=== PATIENT | female | born 1975 | race American Indian/Alaskan Native ===

== ENCOUNTER 2016-08-25 13:39 | Inpatient (IN) | payer MEDICARE, MEDICAID ==
[2016-08-25 13:48] VITALS: BMI 34.3
--- NOTE | 2016-08-25 14:21 | ED PDOC ---
Arrival/HPI - General Chief Complaint: Psychiatric Evaluation Time Seen by Provider: 08/25/16 13:45 Historian: Patient - History of Present Illness Narrative History of Present Illness (Text): 08/25/16 14:19 40 year old female presents to the emergency department with depression and suicidal ideation. She states "I just want to end it." Patient also reports auditory hallucinations. Patient states she stopped taking her medications. No other complaints at this time. Time/Duration: < week Symptom Onset: Gradual Symptom Course: Unchanged Modifying Factors (Text): None Associated Symptoms (Text): None Past Medical History - Provider Review Nursing Documentation Reviewed: Yes - Past History Past History: Non-Contributing - Infectious Disease Hx of Infectious Diseases: None - Tetanus Immunization Tetanus Immunization: Unknown - Cardiac Hx Cardiac Disorders: Yes Hx Hypertension: Yes - Pulmonary Hx Respiratory Disorders: No Hx Asthma: No - Neurological Hx Neurological Disorder: Yes Hx Seizures: Yes (age 14) - HEENT Hx HEENT Disorder: No - Renal Hx Renal Disorder: No - Endocrine/Metabolic Hx Endocrine Disorders: Yes Hx Diabetes Mellitus Type 2: Yes - Hematological/Oncological Hx Blood Disorders: Yes Hx Anemia: Yes - Integumentary Hx Dermatological Disorder: No - Musculoskeletal/Rheumatological Hx Musculoskeletal Disorders: No Hx Falls: No - Gastrointestinal Hx Gastrointestinal Disorders: No - Genitourinary/Gynecological Hx Genitourinary Disorders: No Hx Sexually Transmitted Diseases: No - Psychiatric Hx Psychophysiologic Disorder: No Hx Emotional Abuse: No Hx Physical Abuse: No Hx Sexual Abuse: No Hx Substance Use: No - Anesthesia Hx Anesthesia: No - Suicidal Assessment Feels Threatened In Home Enviroment: No Family/Social History - Physician Review Nursing Documentation Reviewed: Yes Family/Social History: Unknown Family HX Smoking Status: Never Smoked Hx Alcohol Use: No Hx Substance Use: No Hx Substance Use Treatment: No Allergies/Home Meds Allergies/Adverse Reactions: Allergies No Known Allergies Allergy (Verified 08/25/16 13:58) Review of Systems - Physician Review All systems were reviewed & negative as marked: Yes - Review of Systems Respiratory: absent: SOB Cardiovascular: absent: Chest Pain Gastrointestinal: absent: Abdominal Pain Psychiatric: Depression, Suicidal Ideation (no plan) Physical Exam Vital Signs Reviewed: Yes Vital Signs Temp Pulse Resp BP Pulse Ox 08/25/16 19:39 98.6 F 76 20 123/80 99 08/25/16 16:52 66 18 125/64 99 08/25/16 15:30 69 18 128/69 99 08/25/16 14:13 98.2 F 74 18 132/71 99 Temperature: Afebrile Blood Pressure: Normal Pulse: Regular Respiratory Rate: Normal Appearance: Positive for: Well-Appearing, Non-Toxic, Comfortable Pain Distress: None Mental Status: Positive for: other (Awake, alert) - Systems Exam Head: Present: Atraumatic, Normocephalic Pupils: Present: PERRL Extroacular Muscles: Present: EOMI Conjunctiva: Present: Normal Mouth: Present: Moist Mucous Membranes Neck: Present: Normal Range of Motion Respiratory/Chest: Present: Clear to Auscultation, Good Air Exchange. No: Respiratory Distress, Accessory Muscle Use Cardiovascular: Present: Regular Rate and Rhythm, Normal S1, S2. No: Murmurs Abdomen: Present: Normal Bowel Sounds. No: Tenderness, Distention, Peritoneal Signs Back: Present: Normal Inspection Upper Extremity: Present: Normal Inspection. No: Cyanosis, Edema Lower Extremity: Present: Normal Inspection. No: Edema Neurological: Present: GCS=15, CN II-XII Intact, Speech Normal Skin: Present: Warm, Dry, Normal Color. No: Rashes Psychiatric: Present: Alert, Normal Concentration Medical Decision Making ED Course and Treatment: Impression: 40 year old female presents to the emergency department with depression and suicidal ideation. Patient also reports auditory hallucinations. Patient states she stopped taking her medications. No other complaints at this time. Differential Diagnosis include but are not limited to: Plan: -- EKG, Chest X-ray -- PES evaluation -- Reassess and disposition Prior Visits: Notes and results from previous visits were reviewed. Patient last seen in ED on 06/18/16 for depression. Progress Notes: - Lab Interpretations Lab Results: 08/25/16 13:55 08/25/16 13:55 Lab Results 08/25/16 17:35: Urine Opiates Screen Negative, Urine Methadone Screen Negative, Ur Barbiturates Screen Negative, Ur Phencyclidine Scrn Negative, Ur Amphetamines Screen Negative, U Benzodiazepines Scrn Negative, U Oth Cocaine Metabols Negative, U Cannabinoids Screen Negative 08/25/16 13:55: WBC 10.2, RBC 4.36, Hgb 12.4, Hct 37.0, MCV 84.9, MCH 28.4, MCHC 33.5, RDW 16.9 H, Plt Count 376, MPV 9.2, Gran % 57.3, Lymph % (Auto) 33.7 , [place] % (Auto) 7.4 H, Eos % (Auto) 1.2 L, Baso % (Auto) 0.4, Gran # 5.85, Lymph # 3.4, [place] # 0.8 H, Eos # 0.1, Baso # 0.04, Sodium 138, Potassium 4.1, Chloride 100, Carbon Dioxide 22, Anion Gap 20, BUN 10, Creatinine 0.5, Est GFR ( Amer) > 60, Est GFR (Non-Af Amer) > 60, Random Glucose 199 H, Calcium 9.7, Total Bilirubin 0.5, AST 28, ALT 31, Alkaline Phosphatase 73, Total Protein 8.2, Albumin 4.2, Globulin 4.0, Albumin/Globulin Ratio 1.1, Urine Color Yellow, Urine Appearance Clear, Urine pH 6.0, Ur Specific [place] >= 1.030, Urine Protein Trace H, Urine Glucose (UA) Negative, Urine Ketones 40 H, Urine Blood Negative, Urine Nitrate Negative, Urine Bilirubin Negative, Urine Urobilinogen 0.2, Ur Leukocyte Esterase Trace H, Urine RBC 0 - 2, Urine WBC 2 - 5, Ur Epithelial Cells 3 - 4, Urine Bacteria Few, Urine HCG, Qual Negative, Salicylates < 1 L, Acetaminophen < 10.0 L, Alcohol, Quantitative < 10 - RAD Interpretation Radiology Orders: 08/25/16 14:19 CHEST PORTABLE [RAD] Stat - EKG Interpretation EKG Interpretation (Text): EKG shows sinus tachycardia at [address] changes, no interval changes. Interpreted by ED Physician: Yes Type: 12 lead EKG - Scribe Statement The provider has reviewed the documentation as recorded by the Sridevi Begum Provider Scribe Attestation: All medical record entries made by the Sridevi were at my direction and personally dictated by me. I have reviewed the chart and agree that the record accurately reflects my personal performance of the history, physical exam, medical decision making, and the department course for this patient. I have also personally directed, reviewed, and agree with the discharge instructions and disposition. Disposition/Present on Arrival - Present on Arrival Any Indicators Present on Arrival: No History of DVT/PE: No History of Uncontrolled Diabetes: No Urinary Catheter: No History of Decub. Ulcer: No History Surgical Site Infection Following: None - Disposition Have Diagnosis and Disposition been Completed?: Yes Diagnosis: Depression Disposition: HOSPITALIZED Disposition Time: 21:43 Condition: STABLE
[2016-08-25 14:25] LABS: ADD MANUAL DIFF? NO
[2016-08-25 14:31] LABS: BASO # 0.04 K/mm3 (0.0-2.0); BASO % 0.4 % (0.0-3.0); EOS # 0.1 (0.0-0.7); EOS % 1.2 % (1.5-5.0); GRAN # 5.85 (1.4-6.5); GRAN % 57.3 % (50.0-68.0); LYMPH # 3.4 (1.2-3.4); LYMPH % 33.7 % (22.0-35.0); MEAN CELL VOLUME 84.9 fL (80.0-105.0); MEAN CORPUSCULAR HEMOGLOBIN 28.4 pg (25.0-35.0); MEAN CORPUSCULAR HGB CONC 33.5 g/dl (31.0-37.0); MEAN PLATELET VOLUME 9.2 fl (7.0-11.0); MONO # 0.8 (0.1-0.6); MONO % 7.4 % (1.0-6.0); PLATELET COUNT 376 10^3/uL (120.0-450.0); RED CELL DISTRIBUTION WIDTH 16.9 % (11.5-14.5); URINE BILIRUBIN NEGATIVE (NEGATIVE); URINE BLOOD NEGATIVE (NEGATIVE); URINE GLUCOSE (UA) NEGATIVE (NEGATIVE); URINE KETONE 40 mg/dL (NEGATIVE); URINE LEUKOCYTE ESTERASE TRACE Leu/uL (NEGATIVE); URINE PROTEIN TRACE mg/dL (<30 mg/dL); URINE UROBILINOGEN 0.2 E.U./dL (<1 E.U./dL); WHITE BLOOD COUNT 10.2 10^3/ul (4.5-11.0)
[2016-08-25 14:34] LABS: URINE APPEARANCE CLEAR (CLEAR); URINE COLOR YELLOW (YELLOW)
[2016-08-25 14:40] LABS: ALB/GLOB RATIO 1.1 (1.1-1.8); ALKALINE PHOSPHATASE 73 U/L (38-133); ALT/SGPT 31 U/L (7-56); AST/SGOT 28 U/L (15-39); BILIRUBIN,TOTAL 0.5 mg/dL (0.2-1.3); BLOOD UREA NITROGEN 10 mg/dL (7-21); CALCIUM 9.7 mg/dL (8.4-10.5); CARBON DIOXIDE 22 mmol/L (21-33); CHLORIDE 100 mmol/L (98-107); GFR AFRICAN-AMERICAN > 60; GLUCOSE,RANDOM 199 mg/dL (70-110); SODIUM 138 mmol/L (132-148); TOTAL PROTEIN 8.2 g/dL (5.8-8.3)
[2016-08-25 14:41] LABS: POTASSIUM 4.1 mmol/L (3.6-5.0)
[2016-08-25 14:45] LABS: URINE RBC 0 - 2 /hpf (0-2)
[2016-08-25 14:46] LABS: URINE BACTERIA FEW (NEG)
--- NOTE | 2016-08-25 15:19 | CARD ---
APPROVED REPORT EKG Measurement Heart [id number] <Conclusion> Sinus tachycardia STTW changes c/w ischemia
--- NOTE | 2016-08-25 15:30 | RAD ---
HISTORY: pysch COMPARISON: 06/19/2016 FINDINGS: LUNGS: No active pulmonary disease. PLEURA: No significant pleural effusion identified, no pneumothorax apparent. CARDIOVASCULAR: Normal. OSSEOUS STRUCTURES: No significant abnormalities. VISUALIZED UPPER ABDOMEN: Normal. OTHER FINDINGS: None. IMPRESSION: No active disease.
[2016-08-26 09:26] LABS: CHOLESTEROL 253 mg/dL (130-200); GLUCOSE,FASTING 247 mg/dL (65-110)
--- NOTE | 2016-08-26 09:50 | CON ---
DATE: 08/26/2016 I know the patient very well from multiple visits to the psychiatric floor, and it was good to she he r. She smiled when she saw me. She is feeling comfortable being there. She comes in being a 40-year-old female with depression and suicidal thoughts like, "Just wanted to ." She also had auditory hallucinations, and she stopped taking her medications. That is probably why she is in this trouble right now. She is pleasant this morning. She is smilin vanessa. She is talking to me. She is happy to see me. She has a history of hypertension, diabetes, seizures, anemia. There is diabetes in the family. She never smoked, did drugs, or do alcohol. No known drug allergies. She is on Clozaril, chewable aspirin, Colace, Haldol, Zetia, Zoloft, Glucophage, and Cozaar, which vickey benjamin had stopped taking. She has no known drug allergies. REVIEW OF SYSTEMS: No changes in hearing or seeing, but she is having auditory hallucinations now. No sore throat. No headache or dizziness, or numbness. No chest pain or palpitations, no shortness of breath, coughing or wheezes. No abdominal pain, nausea, vomiting, constipation, diarrhea. No ext remity pains. No skin rashes. She has a 98.6 temp, 76 pulse, 20 respiratory rate, and 123/80 blood pressure, 99% O2 sat on room air . HEAD: Atraumatic, normocephalic. Extraocular muscles are intact. Pupils equally reactive to light. Throat is moist, no erythema. NECK: Supple, no JVD. HEART: Regular rate. Normal S1, S2. LUNGS: Clear to auscultation. No wheezing, no rhonchi, no rales. ABDOMEN: Soft, nontender, positive bowel sounds, no guarding, no rebound, no CVA tenderness. EXTREMITIES: Have no edema. She is walking well. NEUROLOGIC: Cranial nerves II-XII grossly intact. Speech is normal. PCS is 15. Her sticks out her tongue midline. She smiles, she frowns. She can close her eyes tight. She can follow my finger in an H pattern. She can put both arms over her head. She understands the colors red, yellow, and gre en. Neurologically she is fairly intact. She feels the tissue on both sides of her cheeks, the same sensation. SKIN: Warm and dry. Alert and comfortable at this time. Happy to be on the psychiatric floor. She feels more comfortabl e here. No palpable lymphadenopathy appreciated, and thyroid midline. She had blood tests. She had a urine; showed a valproic acid of 25 low, otherwise the drug screen wa s fine. Urine was clean, with a negative . She has a 138 sodium, potassium 4.1, BUN 10, creatinine 0.5. GFR is greater than 60. Sugar is 161, calcium is 9.7. Total bili is 0.5. AST is 28, ALT is 31, alk phos 73, total protein is 8.2, globuli n is 4.0. White count is 10.2, hemoglobin 12.4, hematocrit 37, platelets are 376. I will put her back on her aspirin, her Colace, her Cozaar, her Zetia, and metformin. Will follow ps ychiatric treatment and medication adjustment. Hopefully, she will do very well. I encouraged her t o participate in groups, eat well, and take the medication again. Will watch her blood sugars and he r blood pressure, and I will check the labs tomorrow. Thank you very much for allowing me to participate in her care. Jason Contreras DO cc: [id number] TT: 08/26/2016 09:49:51 Confirmation # [id number] Dictation # [id number] krish
--- NOTE | 2016-08-26 12:02 | PCM.PSYCH ---
Initial Psychiatric Evaluation - Initial Psychiatric Evaluation Type of Admission: Voluntary Legal Status: Capacity History of Present Illness and Precipitating Events: Patient is a 40 yo AA female, psychiatric history of Schizoaffective Disorder, no drug or alcohol issues, numerous admissions usually in context of noncompliance-most recently at , poor follow up with aftercare recommendations , followed by [facility] PACT who presented to our ER reporting symptoms of depression, SI, AH, similar to her multiple other presentations. I reviewed recent notes and met with patient at bedside as well as during treatment team meeting. Patient is alert and oriented to month, year, location and circumstances. She is superficially bright and cooperative. Appears very friendly during treatment team meeting. Indicates that she came to the ER for help with depression and hallucinations. Presently she denies having any hallucinations or suicidal thoughts. Patient indicates that she has been taking her medications however she cannot list her current medications. Nursing notes indicate that she has been in good control and generally pleasant on the unit. She is oddly related but she's not bizarre and does not appear to be responding to internal stimuli. Presently patient denies having any new discomfort or pain and and has been tolerating current medications Patient has been in fair control overnight. There have been no behavioral issues and she has been compliant with medications. Patient denies discomfort or pain at this time, impulse control is tenuously intact. PSYCHIATRIC HISTORY Patient reports having more that 20 prior psychiatric hospitalizations since her first admission at the age of 14 yo. Most recently she was discharged from [facility] 06/18/16-06/30/16. Discharged on a regimen of Clozaril 275 mg at the morning time in 300 mg at the nighttime (clozaril [facility] notified about [facility] 06/19/16), Zoloft 100 by mouth daily for MDD and anxiety, Haldol Decanoate 100 mg IM monthly last dose was 06/29/16 Denies any history of suicide attempts. She is linked to [facility] PACT services. Patricia is the contact at [phone] Aunt has schizophrenia SOCIAL HISTORY Patient resides by herself in an apartment. Patient has no children. No drugs, alcohol or tobacco. Mother Danuta Zarate is pt's mother and main support ( [phone]). Past Psychiatric History - Past Psychiatric History Pertinent Medical Hx (Current Medical&Sleep Prob, Allergies): Allergies Allergy/AdvReac Type Severity Reaction Status Date / Time No Known Allergies Allergy Verified 08/25/16 22:42 Aspirin [Aspirin Chewable] 81 mg PO DAILY #7 chew 07/01/16 Docusate [Colace] 100 mg PO DAILY #7 cap 07/01/16 Ezetimibe [Zetia] 10 mg PO DAILY #7 tab 07/01/16 Haloperidol Decanoate [Haldol Decanoate] 100 mg IM Q30D #1 amp 07/01/16 Losartan [Cozaar] 100 mg PO DAILY #7 tab 07/01/16 MetFORMIN [glucoPHAGE] 1,000 mg PO BID #14 tab 07/01/16 Sertraline [Zoloft] 150 mg PO DAILY #20 tab 07/01/16 cloZAPine [Clozaril] 300 mg PO HS #45 tab 07/01/16 Mental Status Examination - Affect Affect: Broad, Constricted, Flat - Motor Activity Motor Activity: Calm - Reliability in Providing Information Reliability in Providing Information: Fair, Poor, due to alteration in thoughts - Speech Speech: Disorganized - Mood Mood: Depressed - Formal Thought Process Formal Thought Process: Hallucinations - Hallucinations/Delusions Hallucinations: Auditory - Obsessions/Compulsions Obsessions: No Compulsions: No - Cognitive Functions Orientation: Person, Place, Situation Estimate of Intelligence: Average Judgement: Imparied, as evidence by: Lack of insight into illness Memory: Recent impaired, as evidence by: Inability to recall events of the day - Risk Risk: Diminished functioning - Strength & Assets Inventory Strength & Assets Inventory: Cooperative DSM 5 DX - DSM 5 DSM 5 Diagnosis: Schizoaffective Disorder - Recommended/Plan of Treatment Treatment Recommendations and Plan of Treatment: * group, milieu and supportive tx * [facility] ([phone][facility], Ralph indicated he will call back with patient's medication list. * clozaril started at 50 mg po bid, titrate to prior therapeutic dose * Zoloft 50 mg po daily, titrate to prior therapeutic dose * Awaiting medical consult * Vitals reviewed and noted below: Selected Entries 08/26/16 08:19 Temperature 97.8 F Pulse Rate 78 Respiratory 18 Rate Blood Pressure 122/77 RECENT FLOOR LABS NOTED BELOW 08/26/16 09:10 Triglycerides 322 H Cholesterol 253 H LDL Cholesterol Direct 178 H ER LABS AND STUDIES NOTED BELOW 08/25/16 17:35: Urine Opiates Screen Negative, Urine Methadone Screen Negative, Ur Barbiturates Screen Negative, Ur Phencyclidine Scrn Negative, Ur Amphetamines Screen Negative, U Benzodiazepines Scrn Negative, U Oth Cocaine Metabols Negative, U Cannabinoids Screen Negative 08/25/16 13:55: WBC 10.2, RBC 4.36, Hgb 12.4, Hct 37.0, MCV 84.9, MCH 28.4, MCHC 33.5, RDW 16.9 H, Plt Count 376, MPV 9.2, Gran % 57.3, Lymph % (Auto) 33.7 , [place] % (Auto) 7.4 H, Eos % (Auto) 1.2 L, Baso % (Auto) 0.4, Gran # 5.85, Lymph # 3.4, [place] # 0.8 H, Eos # 0.1, Baso # 0.04, Sodium 138, Potassium 4.1, Chloride 100, Carbon Dioxide 22, Anion Gap 20, BUN 10, Creatinine 0.5, Est GFR ( Amer) > 60, Est GFR (Non-Af Amer) > 60, Random Glucose 199 H, Calcium 9.7, Total Bilirubin 0.5, AST 28, ALT 31, Alkaline Phosphatase 73, Total Protein 8.2, Albumin 4.2, Globulin 4.0, Albumin/Globulin Ratio 1.1, Urine Color Yellow, Urine Appearance Clear, Urine pH 6.0, Ur Specific [place] >= 1.030, Urine Protein Trace H, Urine Glucose (UA) Negative, Urine Ketones 40 H, Urine Blood Negative, Urine Nitrate Negative, Urine Bilirubin Negative, Urine Urobilinogen 0.2, Ur Leukocyte Esterase Trace H, Urine RBC 0 - 2, Urine WBC 2 - 5, Ur Epithelial Cells 3 - 4, Urine Bacteria Few, Urine HCG, Qual Negative, Salicylates < 1 L, Acetaminophen < 10.0 L, Alcohol, Quantitative < 10 EKG Interpretation EKG shows sinus tachycardia at [address] changes, no interval changes.
[2016-08-26] MEDS: Divalproex 500 mg ER (ONCE DAILY formulation) PO SCH (21:21)
[2016-08-27 08:11] LABS: HEMATOCRIT 33.2 % (36.0-48.0); MEAN CELL VOLUME 83.8 fL (80.0-105.0); MEAN CORPUSCULAR HGB CONC 33.4 g/dl (31.0-37.0); MEAN PLATELET VOLUME 9.2 fl (7.0-11.0); RED CELL DISTRIBUTION WIDTH 16.7 % (11.5-14.5); WHITE BLOOD COUNT 9.2 10^3/ul (4.5-11.0)
[2016-08-27 08:29] LABS: ALB/GLOB RATIO 1.1 (1.1-1.8); ALKALINE PHOSPHATASE 70 U/L (38-133); ALT/SGPT 33 U/L (7-56); AST/SGOT 25 U/L (15-39); BILIRUBIN,TOTAL 0.3 mg/dL (0.2-1.3); BLOOD UREA NITROGEN 8 mg/dL (7-21); CARBON DIOXIDE 26 mmol/L (21-33); CHLORIDE 101 mmol/L (95-110); GFR AFRICAN-AMERICAN > 60; GLUCOSE,RANDOM 150 mg/dL (70-110); POTASSIUM 4.2 mmol/L (3.6-5.0); SODIUM 139 mmol/L (132-148); TOTAL PROTEIN 7.2 g/dL (5.8-8.3)
--- NOTE | 2016-08-27 08:58 | PCM.PYCHPN ---
Psychiatric Progress Note - Psychiatric Progress Note Patient seen today, length of contact: 25 min Problems Identified/Issues Discussed: I reviewed recent notes and met with patient at bedside. Patient remains alert and oriented x3. She is superficially bright and cooperative. Reports she is doing better and looks pleased about being hospitalized. Denies recurrence of hallucinations or suicidal thoughts. She doesn't appear to be responding to internal stimuli. Nursing notes indicate that patient has been in good control and generally pleasant on the unit. She remains oddly related but not bizarre. Presently patient denies having any new discomfort or pain and has been tolerating the medications that were restarted yesterday. There were no behavioral issues overnight Diagnostic Results: Schizoaffective Disorder Medication Change: No Medical Record Reviewed: Yes Mental Status Examination - Cognitive Function Orientation: Person, Place, Situation - Mood Mood: Depressed - Affect Affect: Broad, Constricted, Flat - Formal Thought Process Formal Thought Process: Hallucinations - Homicidal Ideation Homicidal Ideation: No Goal/Treatment Plan - Goal/Treatment Plan Need for Continued Stay: Remain at risks for inpatient hospitalization Progress Toward Problem(s) and Goals/Treatment Plan: * group, milieu and supportive tx * Spoke with Ralph ([phone]) with [facility] services on 08/25/16 who indicated that patient's next Haldol Dec 100 mg IM dose is September 21. Confirmed current medication doses of Clozaril 200 mg AM and Depakote ER 1000 mg HS. * Clozaril changed to 100 mg AM, will titrate to prior dose of 200 mg AM. pt is on monthly monitoring * Depakote ER 1000 mg HS, VPA level on 08/27/16=18 * Awaiting medical consult * Vitals reviewed and noted below: Selected Entries 08/26/16 08/26/16 08:19 16:16 Temperature 97.8 F Pulse Rate 78 96 H Respiratory 18 Rate Blood Pressure 122/77 138/95 H RECENT FLOOR LABS NOTED BELOW 08/27/16 08/27/16 07:18 07:30 WBC 9.2 RBC 3.96 Hgb 11.1 L Hct 33.2 L MCV 83.8 MCH 28.0 MCHC 33.4 RDW 16.7 H Plt Count 317 MPV 9.2 Sodium 139 Potassium 4.2 Chloride 101 Carbon Dioxide 26 Anion Gap 16 BUN 8 Creatinine 0.4 L Est GFR ( Amer) > 60 POC Glucose (mg/dL) 153 H Random Glucose 150 H Calcium 9.0 Total Bilirubin 0.3 AST 25 ALT 33 Alkaline Phosphatase 70 Total Protein 7.2 Albumin 3.9 Globulin 3.4 Albumin/Globulin Ratio 1.1 Valproic Acid 18 L 08/26/16 09:10 Triglycerides 322 H Cholesterol 253 H LDL Cholesterol Direct 178 H ER LABS AND STUDIES NOTED BELOW 08/25/16 17:35: Urine Opiates Screen Negative, Urine Methadone Screen Negative, Ur Barbiturates Screen Negative, Ur Phencyclidine Scrn Negative, Ur Amphetamines Screen Negative, U Benzodiazepines Scrn Negative, U Oth Cocaine Metabols Negative, U Cannabinoids Screen Negative 08/25/16 13:55: WBC 10.2, RBC 4.36, Hgb 12.4, Hct 37.0, MCV 84.9, MCH 28.4, MCHC 33.5, RDW 16.9 H, Plt Count 376, MPV 9.2, Gran % 57.3, Lymph % (Auto) 33.7 , [place] % (Auto) 7.4 H, Eos % (Auto) 1.2 L, Baso % (Auto) 0.4, Gran # 5.85, Lymph # 3.4, [place] # 0.8 H, Eos # 0.1, Baso # 0.04, Sodium 138, Potassium 4.1, Chloride 100, Carbon Dioxide 22, Anion Gap 20, BUN 10, Creatinine 0.5, Est GFR ( Amer) > 60, Est GFR (Non-Af Amer) > 60, Random Glucose 199 H, Calcium 9.7, Total Bilirubin 0.5, AST 28, ALT 31, Alkaline Phosphatase 73, Total Protein 8.2, Albumin 4.2, Globulin 4.0, Albumin/Globulin Ratio 1.1, Urine Color Yellow, Urine Appearance Clear, Urine pH 6.0, Ur Specific [place] >= 1.030, Urine Protein Trace H, Urine Glucose (UA) Negative, Urine Ketones 40 H, Urine Blood Negative, Urine Nitrate Negative, Urine Bilirubin Negative, Urine Urobilinogen 0.2, Ur Leukocyte Esterase Trace H, Urine RBC 0 - 2, Urine WBC 2 - 5, Ur Epithelial Cells 3 - 4, Urine Bacteria Few, Urine HCG, Qual Negative, Salicylates < 1 L, Acetaminophen < 10.0 L, Alcohol, Quantitative < 10 EKG Interpretation EKG shows sinus tachycardia at [address] changes, no interval changes. - Smoking Cessation Smoking Cessation Initiated: No
[2016-08-27] MEDS: Divalproex 500 mg ER (ONCE DAILY formulation) PO SCH (21:08)
--- NOTE | 2016-08-28 08:42 | PCM.PYCHPN ---
Psychiatric Progress Note - Psychiatric Progress Note Patient seen today, length of contact: 25 min Patient Chief Complaint: "better" Problems Identified/Issues Discussed: I reviewed recent notes and met with patient at bedside. Patient remains oriented x3. She is superficially bright and cooperative. Continues to report that she is doing better and nursing indicates that she looks comfortable on the unit. Denies recurrence of hallucinations or suicidal thoughts. She doesn't appear to be responding to internal stimuli but she is internally preoccupied Nursing notes indicate that patient has been in good control and generally pleasant on the unit. She remains oddly related. Presenting better during this hospitalization than prior admissions. Presently patient denies having any new discomfort or pain and has been tolerating the medications that were restarted yesterday. Agreeable to further increase of clozaril to titrate to prior effective dose of 200 mg AM. There were no behavioral issues over the weekend. Diagnostic Results: Schizoaffective Disorder Medication Change: Yes (Clozaril increased) Medical Record Reviewed: Yes (notes, reports, labs, vitals) Mental Status Examination - Cognitive Function Orientation: Person, Place, Situation - Mood Mood: Depressed - Affect Affect: Broad, Constricted, Flat - Formal Thought Process Formal Thought Process: Hallucinations - Homicidal Ideation Homicidal Ideation: No Goal/Treatment Plan - Goal/Treatment Plan Need for Continued Stay: Remain at risks for inpatient hospitalization Progress Toward Problem(s) and Goals/Treatment Plan: * group, milieu and supportive tx * Appreciate f/u by Dr. Contreras on 08/26/16~put patient back on her antihypertensive, diabetic medications and requested labs * Spoke with Ralph ([phone]) with [facility] PA[facility] services on 08/25/16 who indicated that patient's next Haldol Dec 100 mg IM dose is September 21. Confirmed current medication doses of Clozaril 200 mg AM and Depakote ER 1000 mg HS. * Clozaril increased to 120 mg AM, will titrate to prior dose of 200 mg AM. pt is on monthly monitoring * Depakote ER 1000 mg HS, VPA level on 08/27/16=18 * Vitals reviewed and noted below: Selected Entries 08/27/16 08/27/16 06:00 16:11 Temperature 97.9 F Pulse Rate 80 82 Respiratory 18 Rate Blood Pressure 117/81 126/89 RECENT FLOOR LABS NOTED BELOW 08/27/16 08/27/16 07:18 07:30 WBC 9.2 RBC 3.96 Hgb 11.1 L Hct 33.2 L MCV 83.8 MCH 28.0 MCHC 33.4 RDW 16.7 H Plt Count 317 MPV 9.2 Sodium 139 Potassium 4.2 Chloride 101 Carbon Dioxide 26 Anion Gap 16 BUN 8 Creatinine 0.4 L Est GFR ( Amer) > 60 POC Glucose (mg/dL) 153 H Random Glucose 150 H Calcium 9.0 Total Bilirubin 0.3 AST 25 ALT 33 Alkaline Phosphatase 70 Total Protein 7.2 Albumin 3.9 Globulin 3.4 Albumin/Globulin Ratio 1.1 Valproic Acid 18 L 08/26/16 09:10 Triglycerides 322 H Cholesterol 253 H LDL Cholesterol Direct 178 H ER LABS AND STUDIES NOTED BELOW 08/25/16 17:35: Urine Opiates Screen Negative, Urine Methadone Screen Negative, Ur Barbiturates Screen Negative, Ur Phencyclidine Scrn Negative, Ur Amphetamines Screen Negative, U Benzodiazepines Scrn Negative, U Oth Cocaine Metabols Negative, U Cannabinoids Screen Negative 08/25/16 13:55: WBC 10.2, RBC 4.36, Hgb 12.4, Hct 37.0, MCV 84.9, MCH 28.4, MCHC 33.5, RDW 16.9 H, Plt Count 376, MPV 9.2, Gran % 57.3, Lymph % (Auto) 33.7 , [place] % (Auto) 7.4 H, Eos % (Auto) 1.2 L, Baso % (Auto) 0.4, Gran # 5.85, Lymph # 3.4, [place] # 0.8 H, Eos # 0.1, Baso # 0.04, Sodium 138, Potassium 4.1, Chloride 100, Carbon Dioxide 22, Anion Gap 20, BUN 10, Creatinine 0.5, Est GFR ( Amer) > 60, Est GFR (Non-Af Amer) > 60, Random Glucose 199 H, Calcium 9.7, Total Bilirubin 0.5, AST 28, ALT 31, Alkaline Phosphatase 73, Total Protein 8.2, Albumin 4.2, Globulin 4.0, Albumin/Globulin Ratio 1.1, Urine Color Yellow, Urine Appearance Clear, Urine pH 6.0, Ur Specific [place] >= 1.030, Urine Protein Trace H, Urine Glucose (UA) Negative, Urine Ketones 40 H, Urine Blood Negative, Urine Nitrate Negative, Urine Bilirubin Negative, Urine Urobilinogen 0.2, Ur Leukocyte Esterase Trace H, Urine RBC 0 - 2, Urine WBC 2 - 5, Ur Epithelial Cells 3 - 4, Urine Bacteria Few, Urine HCG, Qual Negative, Salicylates < 1 L, Acetaminophen < 10.0 L, Alcohol, Quantitative < 10 EKG Interpretation EKG shows sinus tachycardia at [address] changes, no interval changes.
--- NOTE | 2016-08-28 11:54 | PN ---
DATE: 08/28/2016 The patient is a 40-year-old female, seen and examined in the psychiatric [facility], coming in for depress ion as well as suicidal thoughts. At this point, she states that she is feeling a little better, is still depressed about everything going on in the home situation. However, no nausea, no vomiting, no chest pain, no shortness of breath. PHYSICAL EXAMINATION: VITAL SIGNS: Blood pressure is 128/84, pulse rate 89, temperature is 97.9, O2 saturation is 98% on r oom air. HEENT: Normocephalic, atraumatic. [place] conjunctivae. CARDIOVASCULAR: Regular rate and rhythm. S1, S2 appreciated. LUNGS: Bilateral air entry is positive. No wheezes or rhonchi. ABDOMEN: Nondistended, nontender. Positive bowel sounds. EXTREMITIES: Peripheral pulses +2 with no pitting edema. LABORATORIES: Noted that were done on the . Everything was within normal limits at this point. ASSESSMENT: 1. Depression. 2. Suicidal ideation. 3. Hypertension. 4. Diabetes. 5. Seizure disorder in the past. PLAN: At this point, we will continue the aspirin as well as her losartan and Zetia and metformin an d we will continue the psychiatric medication that she is receiving. We will follow very closely. Ho Moody MD cc: [id number] TT: 08/28/2016 11:54:00 Confirmation # [id number] Dictation # [id number] en
[2016-08-28] MEDS: Divalproex 500 mg ER (ONCE DAILY formulation) PO SCH (22:05)
[2016-08-29 06:45] VITALS: O2SAT 98
--- NOTE | 2016-08-29 08:51 | PN ---
DATE: 08/29/2016 I saw her resting in bed on the psychiatric floor. She slept well. She had a good weekend. She is feeling better. She is not as depressed. She is eating well, participating, in good spirits this mo rning. PHYSICAL EXAMINATION: VITAL SIGNS: Temp 97.7, 75 pulse, 113/78 blood pressure, 16 respiratory rate, 98% O2 sat on room air . HEENT: Head is atraumatic, normocephalic. Throat is moist. NECK: Supple. HEART: Regular rate. LUNGS: Clear to auscultation. ABDOMEN: Soft. EXTREMITIES: No edema. She is currently on aspirin, Clozaril, Colace, Cozaar, Depakote, Glucophage and Zetia. LABORATORIES: Last were on the . She has a 9.2 white count, 11.1 hemoglobin, [address] blood sugar was 155. Sodium 139, potassium 4.2, BUN 8, creatinine 0.4, GFR is greater than 60. C alcium is 9. AST is 25, ALT is 33, alk phos is 70. She is being seen by psychiatry. Overall, I think she is doing quite well. She is here for depressi on, suicidal ideation, hypertension, diabetes, seizure disorder. Continue with aggressive treatment and care as per psychiatry and I do think she is improving with psychiatric care. We will follow. Jason Contreras DO cc: [id number] TT: 08/29/2016 08:50:49 Confirmation # [id number] Dictation # [id number] en
--- NOTE | 2016-08-29 10:38 | PCM.PYCHPN ---
Psychiatric Progress Note - Psychiatric Progress Note Patient seen today, length of contact: 25 min Patient Chief Complaint: "better" Problems Identified/Issues Discussed: I reviewed recent notes and met with patient at bedside. Patient remains oriented x3. She is superficially bright and cooperative. Continues to report that she is depressed but doing better. Patient looks comfortable on the unit. Denies recurrence of hallucinations or suicidal thoughts. She doesn't appear to be responding to internal stimuli but she is internally preoccupied and appears flat/oblivious around the unit. Nursing notes indicate that patient has been in good control and generally pleasant on the unit. She remains oddly related. Presenting a little better during this hospitalization than prior admissions. Presently patient denies having any new discomfort or pain and has been tolerating titration of medications that were restarted. Agreeable to further increase of clozaril to titrate to prior effective dose of 200 mg AM. There were no behavioral issues overnight. Diagnostic Results: Schizoaffective Disorder Medication Change: Yes (Clozaril increased) Medical Record Reviewed: Yes (notes, reports, labs, vitals) Mental Status Examination - Cognitive Function Orientation: Person, Place, Situation - Mood Mood: Depressed - Affect Affect: Broad, Constricted, Flat - Formal Thought Process Formal Thought Process: Hallucinations - Homicidal Ideation Homicidal Ideation: No Goal/Treatment Plan - Goal/Treatment Plan Need for Continued Stay: Remain at risks for inpatient hospitalization Progress Toward Problem(s) and Goals/Treatment Plan: * group, milieu and supportive tx * Appreciate f/u by Dr. Contreras on 08/26/16~put patient back on her antihypertensive, diabetic medications and requested labs * Appreciate f/u by Dr. Moody on 08/28/16~no new recommendations * Spoke with Ralph ([phone]) with [facility] PACT services on 08/25/16 who indicated that patient's next Haldol Dec 100 mg IM dose is September 21. Confirmed current medication doses of Clozaril 200 mg AM and Depakote ER 1000 mg HS. * Clozaril increased to 150 mg AM, will titrate to prior dose of 200 mg AM. pt is on monthly monitoring * Depakote ER 1000 mg HS, VPA level on 08/27/16=18 * Vitals reviewed and noted below: Selected Entries 08/28/16 08/28/16 06:00 16:00 Temperature 97.9 F Pulse Rate 89 90 Respiratory 20 Rate Blood Pressure 128/84 108/70 RECENT FLOOR LABS NOTED BELOW 08/27/16 08/27/16 07:18 07:30 WBC 9.2 RBC 3.96 Hgb 11.1 L Hct 33.2 L MCV 83.8 MCH 28.0 MCHC 33.4 RDW 16.7 H Plt Count 317 MPV 9.2 Sodium 139 Potassium 4.2 Chloride 101 Carbon Dioxide 26 Anion Gap 16 BUN 8 Creatinine 0.4 L Est GFR ( Amer) > 60 POC Glucose (mg/dL) 153 H Random Glucose 150 H Calcium 9.0 Total Bilirubin 0.3 AST 25 ALT 33 Alkaline Phosphatase 70 Total Protein 7.2 Albumin 3.9 Globulin 3.4 Albumin/Globulin Ratio 1.1 Valproic Acid 18 L 08/26/16 09:10 Triglycerides 322 H Cholesterol 253 H LDL Cholesterol Direct 178 H ER LABS AND STUDIES NOTED BELOW 08/25/16 17:35: Urine Opiates Screen Negative, Urine Methadone Screen Negative, Ur Barbiturates Screen Negative, Ur Phencyclidine Scrn Negative, Ur Amphetamines Screen Negative, U Benzodiazepines Scrn Negative, U Oth Cocaine Metabols Negative, U Cannabinoids Screen Negative 08/25/16 13:55: WBC 10.2, RBC 4.36, Hgb 12.4, Hct 37.0, MCV 84.9, MCH 28.4, MCHC 33.5, RDW 16.9 H, Plt Count 376, MPV 9.2, Gran % 57.3, Lymph % (Auto) 33.7 , [place] % (Auto) 7.4 H, Eos % (Auto) 1.2 L, Baso % (Auto) 0.4, Gran # 5.85, Lymph # 3.4, [place] # 0.8 H, Eos # 0.1, Baso # 0.04, Sodium 138, Potassium 4.1, Chloride 100, Carbon Dioxide 22, Anion Gap 20, BUN 10, Creatinine 0.5, Est GFR ( Amer) > 60, Est GFR (Non-Af Amer) > 60, Random Glucose 199 H, Calcium 9.7, Total Bilirubin 0.5, AST 28, ALT 31, Alkaline Phosphatase 73, Total Protein 8.2, Albumin 4.2, Globulin 4.0, Albumin/Globulin Ratio 1.1, Urine Color Yellow, Urine Appearance Clear, Urine pH 6.0, Ur Specific [place] >= 1.030, Urine Protein Trace H, Urine Glucose (UA) Negative, Urine Ketones 40 H, Urine Blood Negative, Urine Nitrate Negative, Urine Bilirubin Negative, Urine Urobilinogen 0.2, Ur Leukocyte Esterase Trace H, Urine RBC 0 - 2, Urine WBC 2 - 5, Ur Epithelial Cells 3 - 4, Urine Bacteria Few, Urine HCG, Qual Negative, Salicylates < 1 L, Acetaminophen < 10.0 L, Alcohol, Quantitative < 10 EKG Interpretation EKG shows sinus tachycardia at [address] changes, no interval changes.
[2016-08-29] MEDS: Divalproex 500 mg ER (ONCE DAILY formulation) PO SCH (21:45)
--- NOTE | 2016-08-30 08:50 | PN ---
DATE: 08/30/2016 I saw the patient resting in bed in the psychiatric unit. She slept very well. She is comfortable; no acute distress or complaints. She is improving mentally. She said she is going to groups, and she is eating well. VITAL SIGNS: Are 98.4 temp, 75 pulse, 120/87 blood pressure, 20 respiratory rate, 98% O2 sat on room air. HEAD: Atraumatic, normocephalic. THROAT: Moist. NECK: Supple. HEART: Regular rate. LUNGS: Clear to auscultation. ABDOMEN: Soft, obese, nontender. EXTREMITIES: No edema. She is currently on aspirin, Clozaril, Colace, Cozaar, Depakote, Glucophage, and Zetia. She has a 9.2 white count, 11.1, hemoglobin and 317 platelets. Last blood sugar was 147. Overall, I think she has improved. She has depression, schizophrenia, bipolar, diabetes, hypertension. Continue with aggressive treatment as per psychiatry, and I encouraged her to participate in groups, take her medications, and she is eating well. Jason Contreras DO cc: [id number] TT: 08/30/2016 08:49:23 Confirmation # [id number] Dictation # [id number] jn MTDD
--- NOTE | 2016-08-30 10:08 | PCM.PYCHPN ---
Psychiatric Progress Note - Psychiatric Progress Note Patient seen today, length of contact: 25 min Patient Chief Complaint: "better" Problems Identified/Issues Discussed: I reviewed recent notes and met with patient at bedside. Patient remains oriented x3, superficially bright and cooperative. Consistently indicates that she is doing better and patient looks comfortable on the unit. She denies recurrence of hallucinations or suicidal thoughts. Nursing has noted patient making odd and grandiose statements around the unit. Patient told nursing that she was listening to her "spirit guide" and planned to go to nursing school. She doesn't appear to be actively responding to internal stimuli and she is less internally preoccupied. She is not overtly bizarre. Has been eating and sleeping well. Nursing notes also indicate that patient has been in good control and generally pleasant on the unit. She remains oddly related. Presently patient denies having any new discomfort or pain and has been tolerating titration of medications that were restarted. Agreeable to further increase of clozaril to titrate to prior effective dose of 200 mg AM. There were no behavioral issues overnight. Diagnostic Results: Schizoaffective Disorder Medication Change: Yes (Clozaril increased) Medical Record Reviewed: Yes (notes, reports, labs, vitals) Mental Status Examination - Cognitive Function Orientation: Person, Place, Situation - Mood Mood: Depressed - Affect Affect: Broad, Constricted, Flat - Formal Thought Process Formal Thought Process: Hallucinations - Homicidal Ideation Homicidal Ideation: No Goal/Treatment Plan - Goal/Treatment Plan Need for Continued Stay: Remain at risks for inpatient hospitalization Progress Toward Problem(s) and Goals/Treatment Plan: * group, milieu and supportive tx * Appreciate f/u by Dr. Contreras on 08/26/16 & 08/29/16~put patient back on her antihypertensive, diabetic medications and requested labs * Appreciate f/u by Dr. Moody on 08/28/16~no new recommendations * Spoke with Ralph ([phone]) with [facility] PACT services on 08/25/16 who indicated that patient's next Haldol Dec 100 mg IM dose is September 21. Confirmed current medication doses of Clozaril 200 mg AM and Depakote ER 1000 mg HS. * Clozaril increased to 175 mg AM, will titrate to prior dose of 200 mg AM. pt is on monthly monitoring. ~Patient's ANC results were provided with the updated 08/25/16 ANC value. Enrollment ID: [id number] * Depakote ER 1000 mg HS, ~VPA level on 08/27/16=18, check another VPA on 08/31/16 * Vitals reviewed and noted below: 08/29/16 08/29/16 06:44 16:30 Temperature 97.7 F Pulse Rate 75 92 H Respiratory 16 Rate Blood Pressure 113/78 129/84 RECENT FLOOR LABS NOTED BELOW 08/27/16 08/27/16 07:18 07:30 WBC 9.2 RBC 3.96 Hgb 11.1 L Hct 33.2 L MCV 83.8 MCH 28.0 MCHC 33.4 RDW 16.7 H Plt Count 317 MPV 9.2 Sodium 139 Potassium 4.2 Chloride 101 Carbon Dioxide 26 Anion Gap 16 BUN 8 Creatinine 0.4 L Est GFR ( Amer) > 60 POC Glucose (mg/dL) 153 H Random Glucose 150 H Calcium 9.0 Total Bilirubin 0.3 AST 25 ALT 33 Alkaline Phosphatase 70 Total Protein 7.2 Albumin 3.9 Globulin 3.4 Albumin/Globulin Ratio 1.1 Valproic Acid 18 L 08/26/16 09:10 Triglycerides 322 H Cholesterol 253 H LDL Cholesterol Direct 178 H ER LABS AND STUDIES NOTED BELOW 08/25/16 17:35: Urine Opiates Screen Negative, Urine Methadone Screen Negative, Ur Barbiturates Screen Negative, Ur Phencyclidine Scrn Negative, Ur Amphetamines Screen Negative, U Benzodiazepines Scrn Negative, U Oth Cocaine Metabols Negative, U Cannabinoids Screen Negative 08/25/16 13:55: WBC 10.2, RBC 4.36, Hgb 12.4, Hct 37.0, MCV 84.9, MCH 28.4, MCHC 33.5, RDW 16.9 H, Plt Count 376, MPV 9.2, Gran % 57.3, Lymph % (Auto) 33.7 , [place] % (Auto) 7.4 H, Eos % (Auto) 1.2 L, Baso % (Auto) 0.4, Gran # 5.85, Lymph # 3.4, [place] # 0.8 H, Eos # 0.1, Baso # 0.04, Sodium 138, Potassium 4.1, Chloride 100, Carbon Dioxide 22, Anion Gap 20, BUN 10, Creatinine 0.5, Est GFR ( Amer) > 60, Est GFR (Non-Af Amer) > 60, Random Glucose 199 H, Calcium 9.7, Total Bilirubin 0.5, AST 28, ALT 31, Alkaline Phosphatase 73, Total Protein 8.2, Albumin 4.2, Globulin 4.0, Albumin/Globulin Ratio 1.1, Urine Color Yellow, Urine Appearance Clear, Urine pH 6.0, Ur Specific [place] >= 1.030, Urine Protein Trace H, Urine Glucose (UA) Negative, Urine Ketones 40 H, Urine Blood Negative, Urine Nitrate Negative, Urine Bilirubin Negative, Urine Urobilinogen 0.2, Ur Leukocyte Esterase Trace H, Urine RBC 0 - 2, Urine WBC 2 - 5, Ur Epithelial Cells 3 - 4, Urine Bacteria Few, Urine HCG, Qual Negative, Salicylates < 1 L, Acetaminophen < 10.0 L, Alcohol, Quantitative < 10 EKG Interpretation EKG shows sinus tachycardia at [address] changes, no interval changes. - Smoking Cessation Smoking Cessation Initiated: No
[2016-08-30] MEDS: Divalproex 500 mg ER (ONCE DAILY formulation) PO SCH (21:22)
--- NOTE | 2016-08-31 08:40 | PN ---
DATE: 08/31/2016 I saw her resting in bed this morning. She slept well. She is smiling. She is comfortable. She te lls me she is improving and participating in groups. She is on aspirin, Clozaril, Colace, Cozaar, Depakote, Glucophage and Zetia. PHYSICAL EXAMINATION: VITAL SIGNS: Temp 98.4, 75 pulse, 128/87 blood pressure, 118/76 blood pressure, 20 respiratory rate, 98% O2 sat on room air. HEENT: Head is atraumatic, normocephalic. Throat is moist. NECK: Supple. HEART: Regular rate. LUNGS: Clear to auscultation. ABDOMEN: Soft, obese. EXTREMITIES: No edema. She currently has a 9.2 white count, 11.1 hemoglobin, 317 platelets. Last blood sugar was 153. She is definitely improving with psychiatric care and medication adjustments. She is here for depres erick, schizophrenia, bipolar, diabetes and hypertension. Continue with psychiatric care and changing medications. She is improving and I encouraged her to participate, eat well. Jason Contreras DO cc: [id number] TT: 08/31/2016 08:40:33 Confirmation # [id number] Dictation # [id number] en
--- NOTE | 2016-08-31 10:03 | PCM.PYCHPN ---
Psychiatric Progress Note - Psychiatric Progress Note Patient seen today, length of contact: 25 min Patient Chief Complaint: "better" Problems Identified/Issues Discussed: I reviewed recent notes and met with patient at bedside. Patient remains oriented x3, superficially bright and cooperative. Consistently indicates that she is doing better. She denies recurrence of hallucinations or suicidal thoughts. Nursing has noted patient singing and looking happy on the unit. Patient also made odd and grandiose statements the day prior. Apparently patient told nursing that she was listening to her "spirit guide" and planned to go to nursing school. Patient doesn't appear to be actively responding to internal stimuli and she is less internally preoccupied. She is not overtly bizarre. Has been eating and sleeping well. Nursing notes also indicates that patient has been in good control and generally pleasant on the unit. She is maybe less a little less oddly related as the week progresses. Presently patient denies having any new discomfort or pain and has been tolerating titration of medications that were restarted. Agreeable to further increase of clozaril to titrate to prior effective dose of 200 mg AM today. There were no behavioral issues overnight. Diagnostic Results: Schizoaffective Disorder Medication Change: Yes (Clozaril increased) Medical Record Reviewed: Yes (notes, reports, labs, vitals) Mental Status Examination - Cognitive Function Orientation: Person, Place, Situation - Mood Mood: Depressed - Affect Affect: Broad, Constricted, Flat - Formal Thought Process Formal Thought Process: Hallucinations - Homicidal Ideation Homicidal Ideation: No Goal/Treatment Plan - Goal/Treatment Plan Need for Continued Stay: Remain at risks for inpatient hospitalization Progress Toward Problem(s) and Goals/Treatment Plan: * group, milieu and supportive tx * Appreciate f/u by Dr. Contreras on 08/26/16 & 08/29/16 &08/30/16~put patient back on her antihypertensive, diabetic medications and requested labs * Appreciate f/u by Dr. Moody on 08/28/16~no new recommendations * [phone] indicated that patient's next Haldol Dec 100 mg IM dose is September 21. Confirmed current medication doses of Clozaril 200 mg AM and Depakote ER 1000 mg HS. * Clozaril increased to 200 mg AM, will titrate to prior dose of 200 mg AM. pt is on monthly monitoring. ~Patient's ANC results were provided with the updated 08/25/16 ANC value. Enrollment ID: [id number] * Depakote ER 1000 mg HS, ~VPA level on 08/27/16=18, check another VPA on 08/31/16 * Vitals reviewed and noted below: Selected Entries 08/30/16 08/30/16 06:29 16:37 Temperature 98.4 F Pulse Rate 75 86 Respiratory 20 Rate Blood Pressure 128/87 118/76 08/25/16 13:55 WBC 10.2 RBC 4.36 Hgb 12.4 Hct 37.0 MCV 84.9 MCH 28.4 MCHC 33.5 RDW 16.9 H Plt Count 376 MPV 9.2 Gran % 57.3 Lymph % (Auto) 33.7 [place] % (Auto) 7.4 H Eos % (Auto) 1.2 L Baso % (Auto) 0.4 Gran # 5.85 Lymph # 3.4 [place] # 0.8 H Eos # 0.1 Baso # 0.04 RECENT FLOOR LABS NOTED BELOW 08/27/16 08/27/16 07:18 07:30 WBC 9.2 RBC 3.96 Hgb 11.1 L Hct 33.2 L MCV 83.8 MCH 28.0 MCHC 33.4 RDW 16.7 H Plt Count 317 MPV 9.2 Sodium 139 Potassium 4.2 Chloride 101 Carbon Dioxide 26 Anion Gap 16 BUN 8 Creatinine 0.4 L Est GFR ( Amer) > 60 POC Glucose (mg/dL) 153 H Random Glucose 150 H Calcium 9.0 Total Bilirubin 0.3 AST 25 ALT 33 Alkaline Phosphatase 70 Total Protein 7.2 Albumin 3.9 Globulin 3.4 Albumin/Globulin Ratio 1.1 Valproic Acid 18 L 08/26/16 09:10 Triglycerides 322 H Cholesterol 253 H LDL Cholesterol Direct 178 H ER LABS AND STUDIES NOTED BELOW 08/25/16 17:35: Urine Opiates Screen Negative, Urine Methadone Screen Negative, Ur Barbiturates Screen Negative, Ur Phencyclidine Scrn Negative, Ur Amphetamines Screen Negative, U Benzodiazepines Scrn Negative, U Oth Cocaine Metabols Negative, U Cannabinoids Screen Negative 08/25/16 13:55: WBC 10.2, RBC 4.36, Hgb 12.4, Hct 37.0, MCV 84.9, MCH 28.4, MCHC 33.5, RDW 16.9 H, Plt Count 376, MPV 9.2, Gran % 57.3, Lymph % (Auto) 33.7 , [place] % (Auto) 7.4 H, Eos % (Auto) 1.2 L, Baso % (Auto) 0.4, Gran # 5.85, Lymph # 3.4, [place] # 0.8 H, Eos # 0.1, Baso # 0.04, Sodium 138, Potassium 4.1, Chloride 100, Carbon Dioxide 22, Anion Gap 20, BUN 10, Creatinine 0.5, Est GFR ( Amer) > 60, Est GFR (Non-Af Amer) > 60, Random Glucose 199 H, Calcium 9.7, Total Bilirubin 0.5, AST 28, ALT 31, Alkaline Phosphatase 73, Total Protein 8.2, Albumin 4.2, Globulin 4.0, Albumin/Globulin Ratio 1.1, Urine Color Yellow, Urine Appearance Clear, Urine pH 6.0, Ur Specific [place] >= 1.030, Urine Protein Trace H, Urine Glucose (UA) Negative, Urine Ketones 40 H, Urine Blood Negative, Urine Nitrate Negative, Urine Bilirubin Negative, Urine Urobilinogen 0.2, Ur Leukocyte Esterase Trace H, Urine RBC 0 - 2, Urine WBC 2 - 5, Ur Epithelial Cells 3 - 4, Urine Bacteria Few, Urine HCG, Qual Negative, Salicylates < 1 L, Acetaminophen < 10.0 L, Alcohol, Quantitative < 10 EKG Interpretation EKG shows sinus tachycardia at [address], no interval changes.
[2016-08-31] MEDS: Divalproex 500 mg ER (ONCE DAILY formulation) PO SCH (21:53)
--- NOTE | 2016-09-01 08:34 | PN ---
DATE: 09/01/2016 I saw the patient in her bathroom, brushing her teeth, and combing her hair. She is doing well. She is feeling well. She is in good spirits. She is happy. She does group. She is eating well, in good spirits and wants to know when she can go home. PHYSICAL EXAMINATION: VITAL SIGNS: She has a 98.2 temp, 78 pulse, 120/78 blood pressure, 20 respiratory rate. HEAD: Atraumatic, normocephalic. Throat is moist. NECK: Supple. HEART: Regular rate. LUNGS: Clear to auscultation. ABDOMEN: Soft. EXTREMITIES: No edema. MEDICATIONS: She is currently on aspirin, Clozaril, Colace, Cozaar, Depakote, Glucophage, and Zetia. LABORATORY DATA: Last labs were on the , and she did well. Last blood sugar was 137. We will continue with aggressive treatment and care. She is here for depression, diabetes, hypertension, as per psychiatry and adjustment of medications. I encouraged her to participate in groups, eat well , and she will be discharged with psychiatric care who feels that she is ready, but I do think she is improving. Jason Contreras DO cc: [id number] TT: 09/01/2016 08:33:42 Confirmation # [id number] Dictation # [id number] jn MTDD
--- NOTE | 2016-09-01 10:08 | PCM.PYCHPN ---
Psychiatric Progress Note - Psychiatric Progress Note Patient seen today, length of contact: 25 min Patient Chief Complaint: "better" Problems Identified/Issues Discussed: Patient is a 40 yo AA female, psychiatric history of Schizoaffective Disorder, no drug or alcohol issues, numerous admissions usually in context of noncompliance-most recently at ), poor follow up with aftercare recommendations , followed by Elias MARLOWT who presented to our ER reporting symptoms of depression, SI, AH, similar to her multiple other presentations. ~~~~~ I reviewed recent notes and met with patient in the dayroom. Patient remains alert, oriented x3, superficially bright and cooperative. Consistently indicates that she is doing better. She denies recurrence of hallucinations or suicidal thoughts. Nursing has noted patient singing and looking happy on the unit. Patient continues to make odd statements. Apparently patient recently told nursing that she was listening to her "spirit guide". She mentioned her spirit guide to me this morning and superficially , explained that "it's related to my quaker". Patient doesn't appear to be actively responding to internal stimuli and she is less internally preoccupied. She is not overtly bizarre. Has been eating and sleeping well. Nursing notes also indicates that patient has been in good control and generally pleasant on the unit. She getting a little less oddly related as the week progresses. Presently patient denies having any new discomfort or pain and has been tolerating titration of medications that were restarted. There were no behavioral issues overnight. Diagnostic Results: Schizoaffective Disorder Medication Change: No ( ) Medical Record Reviewed: Yes (notes, reports, labs, vitals) Mental Status Examination - Cognitive Function Orientation: Person, Place, Situation - Mood Mood: Depressed - Affect Affect: Broad, Constricted, Flat - Formal Thought Process Formal Thought Process: Hallucinations - Homicidal Ideation Homicidal Ideation: No Goal/Treatment Plan - Goal/Treatment Plan Need for Continued Stay: Remain at risks for inpatient hospitalization Progress Toward Problem(s) and Goals/Treatment Plan: * group, milieu and supportive tx * Appreciate f/u by Dr. Contreras on 08/26/16,08/29/16,08/30/16 & 08/31/16~put patient back on her antihypertensive, diabetic medications and requested labs * Appreciate f/u by Dr. Moody on 08/28/16~no new recommendations * Spoke with Ralph ([phone]) with [facility] PACT services on 08/25/16 who indicated that patient's next Haldol Dec 100 mg IM dose is September 21. Confirmed current medication doses of Clozaril 200 mg AM and Depakote ER 1000 mg HS. * Clozaril increased to 200 mg AM, will titrate to prior dose of 200 mg AM. pt is on monthly monitoring. ~Patient's ANC results were provided with the updated 08/25/16 ANC value. Enrollment ID: [id number] * Depakote ER 1000 mg HS, ~VPA level on 08/27/16=18, VPA level on 08/31/16 =63 * Vitals reviewed and noted below: Selected Entries 08/31/16 08/31/16 06:00 16:31 Temperature 98.2 F Pulse Rate 80 100 H Respiratory 18 Rate Blood Pressure 128/94 H 127/90 RECENT FLOOR LABS NOTED BELOW 08/25/16 13:55 WBC 10.2 RBC 4.36 Hgb 12.4 Hct 37.0 MCV 84.9 MCH 28.4 MCHC 33.5 RDW 16.9 H Plt Count 376 MPV 9.2 Gran % 57.3 Lymph % (Auto) 33.7 [place] % (Auto) 7.4 H Eos % (Auto) 1.2 L Baso % (Auto) 0.4 Gran # 5.85 Lymph # 3.4 [place] # 0.8 H Eos # 0.1 Baso # 0.04 08/27/16 08/27/16 07:18 07:30 WBC 9.2 RBC 3.96 Hgb 11.1 L Hct 33.2 L MCV 83.8 MCH 28.0 MCHC 33.4 RDW 16.7 H Plt Count 317 MPV 9.2 Sodium 139 Potassium 4.2 Chloride 101 Carbon Dioxide 26 Anion Gap 16 BUN 8 Creatinine 0.4 L Est GFR ( Amer) > 60 POC Glucose (mg/dL) 153 H Random Glucose 150 H Calcium 9.0 Total Bilirubin 0.3 AST 25 ALT 33 Alkaline Phosphatase 70 Total Protein 7.2 Albumin 3.9 Globulin 3.4 Albumin/Globulin Ratio 1.1 Valproic Acid 18 L 08/26/16 09:10 Triglycerides 322 H Cholesterol 253 H LDL Cholesterol Direct 178 H ER LABS AND STUDIES NOTED BELOW 08/25/16 17:35: Urine Opiates Screen Negative, Urine Methadone Screen Negative, Ur Barbiturates Screen Negative, Ur Phencyclidine Scrn Negative, Ur Amphetamines Screen Negative, U Benzodiazepines Scrn Negative, U Oth Cocaine Metabols Negative, U Cannabinoids Screen Negative 08/25/16 13:55: WBC 10.2, RBC 4.36, Hgb 12.4, Hct 37.0, MCV 84.9, MCH 28.4, MCHC 33.5, RDW 16.9 H, Plt Count 376, MPV 9.2, Gran % 57.3, Lymph % (Auto) 33.7 , [place] % (Auto) 7.4 H, Eos % (Auto) 1.2 L, Baso % (Auto) 0.4, Gran # 5.85, Lymph # 3.4, [place] # 0.8 H, Eos # 0.1, Baso # 0.04, Sodium 138, Potassium 4.1, Chloride 100, Carbon Dioxide 22, Anion Gap 20, BUN 10, Creatinine 0.5, Est GFR ( Amer) > 60, Est GFR (Non-Af Amer) > 60, Random Glucose 199 H, Calcium 9.7, Total Bilirubin 0.5, AST 28, ALT 31, Alkaline Phosphatase 73, Total Protein 8.2, Albumin 4.2, Globulin 4.0, Albumin/Globulin Ratio 1.1, Urine Color Yellow, Urine Appearance Clear, Urine pH 6.0, Ur Specific [place] >= 1.030, Urine Protein Trace H, Urine Glucose (UA) Negative, Urine Ketones 40 H, Urine Blood Negative, Urine Nitrate Negative, Urine Bilirubin Negative, Urine Urobilinogen 0.2, Ur Leukocyte Esterase Trace H, Urine RBC 0 - 2, Urine WBC 2 - 5, Ur Epithelial Cells 3 - 4, Urine Bacteria Few, Urine HCG, Qual Negative, Salicylates < 1 L, Acetaminophen < 10.0 L, Alcohol, Quantitative < 10 EKG Interpretation EKG shows sinus tachycardia at [address] changes, no interval changes. Estimated Date of D/C: 09/02/16 - Smoking Cessation Smoking Cessation Initiated: No
[2016-09-01] MEDS: Divalproex 500 mg ER (ONCE DAILY formulation) PO SCH (21:40)
--- NOTE | 2016-09-02 09:41 | PN ---
DATE: 09/02/2016 I saw her on the psychiatric floor, resting comfortably. She slept well. She is comfortable, partic ipating in groups. She is taking her medications and she is feeling better. She tells me she is goi ng home on Monday, which I think is great. Hopefully, she will. PHYSICAL EXAMINATION: VITAL SIGNS: Temp 98.2, 81 pulse, 122/84 blood pressure, 19 respiratory rate. HEENT: Head is atraumatic, normocephalic. HEART: Regular rate. LUNGS: Clear to auscultation. ABDOMEN: Soft. EXTREMITIES: No edema. She is currently on aspirin, Clozaril, Colace, Cozaar, Depakote, Glucophage, and Zetia. I do think she is improving. She is being seen by psychiatry and we will continue with aggressive tr eatment and medication adjustment as per psychiatry. She has multiple issues. She has depression, d iabetes, hypertension. Jason Contreras DO cc: [id number] TT: 09/02/2016 09:41:09 Confirmation # [id number] Dictation # [id number]
--- NOTE | 2016-09-02 18:26 | PCM.PYCHPN ---
Psychiatric Progress Note - Psychiatric Progress Note Patient seen today, length of contact: 30 minutes Patient Chief Complaint: "let me tell you certain reasons why they came to the hospital, I have plans for the future, in respect of make sure pills working properly, one of the medications was discontinued, I want to make sure not I am doing well, next time I will call you or my team, I was very sad, but not now..." pt was keep going and going, has difficulties to stay focused, thought process is disorganized. Problems Identified/Issues Discussed: Suicide/ homicide prevention, past psychiatric h/o, current psychiatric symptoms , medical problems, risk/benefits and alternatives of medications, medications compliance, coping strategies, substance abuse h/o, relapse prevention, importance of follow up with psychiatrist and therapist, discharge plan. Medical Problems: DM, hyperlipidemia, HTN Diagnostic Results: 08/27/16 07:30 08/27/16 07:30 Lab Results 09/02/16 16:10: POC Glucose (mg/dL) 213 H 09/02/16 12:05: POC Glucose (mg/dL) 228 H 09/02/16 07:19: POC Glucose (mg/dL) 156 H 09/01/16 22:07: POC Glucose (mg/dL) 164 H 09/01/16 16:09: POC Glucose (mg/dL) 137 H 09/01/16 11:36: POC Glucose (mg/dL) 217 H 09/01/16 07:46: POC Glucose (mg/dL) 137 H 08/31/16 21:47: POC Glucose (mg/dL) 140 H 08/31/16 16:05: POC Glucose (mg/dL) 179 H 08/31/16 11:35: POC Glucose (mg/dL) 151 H 08/31/16 07:30: Valproic Acid 63 08/31/16 07:27: POC Glucose (mg/dL) 153 H 08/30/16 21:52: POC Glucose (mg/dL) 210 H 08/30/16 16:16: POC Glucose (mg/dL) 124 H 08/30/16 11:09: POC Glucose (mg/dL) 144 H 08/30/16 07:34: POC Glucose (mg/dL) 147 H 08/29/16 21:53: POC Glucose (mg/dL) 205 H 08/29/16 16:59: POC Glucose (mg/dL) 216 H 08/29/16 11:33: POC Glucose (mg/dL) 143 H 08/29/16 07:35: POC Glucose (mg/dL) 155 H 08/28/16 21:28: POC Glucose (mg/dL) 162 H 08/28/16 16:16: POC Glucose (mg/dL) 160 H 08/28/16 11:13: POC Glucose (mg/dL) 126 H 08/28/16 07:27: POC Glucose (mg/dL) 148 H 08/27/16 21:09: POC Glucose (mg/dL) 209 H 08/27/16 16:26: POC Glucose (mg/dL) 195 H 08/27/16 12:47: POC Glucose (mg/dL) 253 H 08/27/16 07:30: WBC 9.2, RBC 3.96, Hgb 11.1 L, Hct 33.2 L, MCV 83.8, MCH 28.0, MCHC 33.4, RDW 16.7 H, Plt Count 317, MPV 9.2, Sodium 139, Potassium 4.2, Chloride 101, Carbon Dioxide 26, Anion Gap 16, BUN 8, Creatinine 0.4 L, Est GFR ( Amer) > 60, Est GFR (Non-Af Amer) > 60, Random Glucose 150 H, Calcium 9.0, Total Bilirubin 0.3, AST 25, ALT 33, Alkaline Phosphatase 70, Total Protein 7.2, Albumin 3.9, Globulin 3.4, Albumin/Globulin Ratio 1.1, Valproic Acid 18 L 08/27/16 07:18: POC Glucose (mg/dL) 153 H 08/26/16 21:25: POC Glucose (mg/dL) 175 H 08/26/16 16:09: POC Glucose (mg/dL) 177 H 08/26/16 12:07: POC Glucose (mg/dL) 166 H 08/26/16 09:10: Fasting Glucose 247 H, Triglycerides 322 H, Cholesterol 253 H, LDL Cholesterol Direct 178 H, HDL Cholesterol 32 08/26/16 07:37: POC Glucose (mg/dL) 161 H 08/26/16 07:20: Valproic Acid 25 L 08/25/16 21:39: POC Glucose (mg/dL) 206 H 08/25/16 17:35: Urine Opiates Screen Negative, Urine Methadone Screen Negative, Ur Barbiturates Screen Negative, Ur Phencyclidine Scrn Negative, Ur Amphetamines Screen Negative, U Benzodiazepines Scrn Negative, U Oth Cocaine Metabols Negative, U Cannabinoids Screen Negative 08/25/16 13:55: WBC 10.2, RBC 4.36, Hgb 12.4, Hct 37.0, MCV 84.9, MCH 28.4, MCHC 33.5, RDW 16.9 H, Plt Count 376, MPV 9.2, Gran % 57.3, Lymph % (Auto) 33.7 , [place] % (Auto) 7.4 H, Eos % (Auto) 1.2 L, Baso % (Auto) 0.4, Gran # 5.85, Lymph # 3.4, [place] # 0.8 H, Eos # 0.1, Baso # 0.04, Sodium 138, Potassium 4.1, Chloride 100, Carbon Dioxide 22, Anion Gap 20, BUN 10, Creatinine 0.5, Est GFR ( Amer) > 60, Est GFR (Non-Af Amer) > 60, Random Glucose 199 H, Calcium 9.7, Total Bilirubin 0.5, AST 28, ALT 31, Alkaline Phosphatase 73, Total Protein 8.2, Albumin 4.2, Globulin 4.0, Albumin/Globulin Ratio 1.1, Urine Color Yellow, Urine Appearance Clear, Urine pH 6.0, Ur Specific [place] >= 1.030, Urine Protein Trace H, Urine Glucose (UA) Negative, Urine Ketones 40 H, Urine Blood Negative, Urine Nitrate Negative, Urine Bilirubin Negative, Urine Urobilinogen 0.2, Ur Leukocyte Esterase Trace H, Urine RBC 0 - 2, Urine WBC 2 - 5, Ur Epithelial Cells 3 - 4, Urine Bacteria Few, Urine HCG, Qual Negative, Salicylates < 1 L, Acetaminophen < 10.0 L, Alcohol, Quantitative < 10 Vital Signs Temp Pulse Pulse Resp BP Pulse Ox 09/02/16 16:34 91 H 103/64 09/02/16 06:27 98.2 F 81 19 122/84 09/01/16 16:42 91 H 103/67 09/01/16 06:42 98.2 F 78 20 120/78 08/31/16 16:31 100 H 127/90 08/31/16 06:00 98.2 F 80 18 128/94 H 08/30/16 16:37 86 118/76 08/30/16 06:29 98.4 F 75 20 128/87 08/29/16 16:30 92 H 129/84 08/29/16 06:44 97.7 F 75 16 113/78 98 08/28/16 16:00 90 108/70 08/28/16 06:00 97.9 F 89 20 128/84 08/27/16 16:11 82 126/89 08/27/16 06:00 97.9 F 80 18 117/81 08/26/16 16:16 96 H 138/95 H 08/26/16 08:19 97.8 F 78 18 122/77 08/25/16 23:01 95 H 17 08/25/16 19:39 98.6 F 76 20 123/80 99 08/25/16 16:52 66 18 125/64 99 08/25/16 15:30 69 18 128/69 99 08/25/16 14:13 98.2 F 74 18 132/71 99 DSM 5 Symptoms Update: Patient is a 40 yo AA female, psychiatric history of Schizoaffective Disorder, no drug or alcohol issues, numerous admissions, [facility] who presented to our ER reporting symptoms of depression, SI, AH, similar to her multiple other presentations. this promotion writer is very familiar with this pt from the multiple admissions to this facility. Pt presented to be hyper, was talking nonstop, at the same time pt's statements did not make much sense, for example: ", I was concerned about you, where have you been?, let me tell you certain reasons why they came to the hospital, I have plans for the future, in respect of make sure pills working properly, one of the medications was discontinued, I want to make sure that I am doing well, next time I will call you directly and tell you how I am, or my team, I was very sad, but not now...thank God I am not hearing voices he-he-he, not like that" pt was keep going and going, seems to be not at her baseline, this promotion writer called PACT team pt was on higher dose of clozaril 200mg am and 400mg hs, will increase HS dose. As per L[facility] PACT team pt was on the following meds: Clozaril 200 mg at the morning time and 400 mg at the nighttime Depakote extended-release 1000 mg at the nighttime Haldol decanoate 100 mg IM every monthly last dose was given August 24 Cogentin 1 mg twice a day Colace 100 mg twice a day Aspirin 81 mg by mouth daily Cozaar 100 mg daily Iron 325 mg daily Jentadueto 2.5mg -1000mg po bid Norvasc 10 mg daily zetia 10 mg daily pt reported tolerating meds well, some fine tremor in her R UE. aas per staff patient is less sleepy, was sleeping for the past 2 days majority of the times in the unit, no behavioral issues, patient is superficial , at times does not make much sense, no aggression or agitations Diagnostic Results: Schizoaffective Disorder Medication Change: Yes (Clozaril was increased) Medical Record Reviewed: Yes (notes, reports, labs, vitals) Consults ordered or reviewed: medical consult appreciated see notes for more detailed information Mental Status Examination - Cognitive Function Orientation: Person, Place, Situation Memory: Intact Attention: Poor Concentration: Poor Association: Loose Fund of Knowledge: Poor - Mood Mood: Euphoric - Affect Affect: Broad, Constricted, Flat - Speech Speech: Pressured (disorganized and overproductive) - Formal Thought Process Formal Thought Process: Hallucinations, Loosening of associations, Circumstantial - Suicidal Ideation Suicidal Ideation: No - Homicidal Ideation Homicidal Ideation: No Goal/Treatment Plan - Goal/Treatment Plan Need for Continued Stay: Remain at risks for inpatient hospitalization, Severe depression anxiety, Discharge may exacerbated symptoms, Failed transitioning, Severe functional impairment Progress Toward Problem(s) and Goals/Treatment Plan: U, structure, supportive therapy As per RN Lani PACT team pt was on the following meds: Clozaril 200 mg at the morning time and 400 mg at the nighttime (currently pt is on 200mg daily, will be increased to 200mg am and 50 at night with the plan to titrate it up) for psychosis Depakote extended-release 1000 mg at the nighttime for mood stabilization will f/u on levels Haldol decanoate 100 mg IM every monthly last dose was given August 24 Cogentin 1 mg twice a day for EPS Colace 100 mg twice a day will be resumed Aspirin 81 mg by mouth daily Cozaar 100 mg daily Iron 325 mg daily Jentadueto 2.5mg -1000mg po bid as per medical team Norvasc 10 mg daily BP WNL, will be not resumed zetia 10 mg daily as per medical team will monitor closely Estimated Date of D/C: 09/02/16 - Smoking Cessation Smoking Cessation Initiated: No Reason for not providing: pt does not smoke
[2016-09-02] MEDS: Divalproex 500 mg ER (ONCE DAILY formulation) PO SCH (22:10)
[2016-09-03] MEDS: Iron Complex Polysacch 150mg Cap PO SCH (08:23)
--- NOTE | 2016-09-03 09:17 | PCM.PYCHPN ---
Psychiatric Progress Note - Psychiatric Progress Note Patient seen today, length of contact: 25 minutes Patient Chief Complaint: "better" Problems Identified/Issues Discussed: I reviewed recent notes and met with patient at bedside. Patient remains alert, oriented x3, superficially bright and cooperative. Consistently indicates that she is doing better. She denies recurrence of hallucinations or suicidal thoughts. Patient doesn't appear to be actively responding to internal stimuli and she is less internally preoccupied. She is not overtly bizarre. Has been eating and sleeping well. Nursing notes also indicates that patient has been in good control and generally pleasant on the unit. She getting a little less oddly related as the admission and titration of clozaril progresses. Presently patient denies having any new discomfort or pain and has been tolerating titration of medications that were restarted. There were no behavioral issues overnight. Diagnostic Results: Schizoaffective Disorder Medication Change: Yes (Clozaril was increased) Medical Record Reviewed: Yes (notes, reports, labs, vitals) Mental Status Examination - Cognitive Function Orientation: Person, Place, Situation Memory: Intact Attention: Poor Concentration: Poor Association: Loose Fund of Knowledge: Poor - Mood Mood: Euphoric - Affect Affect: Broad, Constricted, Flat - Speech Speech: Pressured (disorganized and overproductive) - Formal Thought Process Formal Thought Process: Hallucinations, Loosening of associations, Circumstantial - Suicidal Ideation Suicidal Ideation: No - Homicidal Ideation Homicidal Ideation: No Goal/Treatment Plan - Goal/Treatment Plan Need for Continued Stay: Remain at risks for inpatient hospitalization, Severe depression anxiety, Discharge may exacerbated symptoms, Failed transitioning, Severe functional impairment Progress Toward Problem(s) and Goals/Treatment Plan: * group, milieu and supportive tx * No new labs overnight * Clozaril increased to 200 mg AM + 100 mg HS * Vitals reviewed and noted below: Selected Entries 09/02/16 09/02/16 06:27 16:34 Temperature 98.2 F Pulse Rate 81 91 H Respiratory 19 Rate Blood Pressure 122/84 103/64 RECENT FLOOR LABS NOTED BELOW 08/26/16 09:10 Triglycerides 322 H Cholesterol 253 H LDL Cholesterol Direct 178 H ER LABS AND STUDIES NOTED BELOW 08/25/16 17:35: Urine Opiates Screen Negative, Urine Methadone Screen Negative, Ur Barbiturates Screen Negative, Ur Phencyclidine Scrn Negative, Ur Amphetamines Screen Negative, U Benzodiazepines Scrn Negative, U Oth Cocaine Metabols Negative, U Cannabinoids Screen Negative 08/25/16 13:55: WBC 10.2, RBC 4.36, Hgb 12.4, Hct 37.0, MCV 84.9, MCH 28.4, MCHC 33.5, RDW 16.9 H, Plt Count 376, MPV 9.2, Gran % 57.3, Lymph % (Auto) 33.7 , [place] % (Auto) 7.4 H, Eos % (Auto) 1.2 L, Baso % (Auto) 0.4, Gran # 5.85, Lymph # 3.4, [place] # 0.8 H, Eos # 0.1, Baso # 0.04, Sodium 138, Potassium 4.1, Chloride 100, Carbon Dioxide 22, Anion Gap 20, BUN 10, Creatinine 0.5, Est GFR ( Amer) > 60, Est GFR (Non-Af Amer) > 60, Random Glucose 199 H, Calcium 9.7, Total Bilirubin 0.5, AST 28, ALT 31, Alkaline Phosphatase 73, Total Protein 8.2, Albumin 4.2, Globulin 4.0, Albumin/Globulin Ratio 1.1, Urine Color Yellow, Urine Appearance Clear, Urine pH 6.0, Ur Specific [place] >= 1.030, Urine Protein Trace H, Urine Glucose (UA) Negative, Urine Ketones 40 H, Urine Blood Negative, Urine Nitrate Negative, Urine Bilirubin Negative, Urine Urobilinogen 0.2, Ur Leukocyte Esterase Trace H, Urine RBC 0 - 2, Urine WBC 2 - 5, Ur Epithelial Cells 3 - 4, Urine Bacteria Few, Urine HCG, Qual Negative, Salicylates < 1 L, Acetaminophen < 10.0 L, Alcohol, Quantitative < 10 EKG Interpretation EKG shows sinus tachycardia at [address] changes, no interval changes. Estimated Date of D/C: 09/02/16
--- NOTE | 2016-09-03 13:03 | PN ---
DATE: 09/03/2016 I saw the patient resting comfortably in her bed on the psychiatric floor on 5B. She tells me she is doing well, feeling well, no complaints. She is doing groups and taking her medications and improvi ng. She tells me she is going home on Monday. She is on aspirin, Clozaril, Cogentin, Colace, Cozaar , Depakote, Ferrex, Glucophage and Zetia. PHYSICAL EXAMINATION: VITAL SIGNS: 97.6 temp, 81 pulse, 114/81 blood pressure, 18 respiratory rate. HEAD: Atraumatic, normocephalic. Throat is moist. NECK: Supple. HEART: Regular rate. LUNGS: Decreased breath sounds but clear to auscultation. ABDOMEN: Soft, mildly obese, nontender. EXTREMITIES: No edema. LABORATORY DATA: Last labs on the and she did very well. Her folic acid was 63. Last blood pimentel gar was 148. She is being seen by psychiatry. She is here for depression, diabetes, hypertension. No more halluc inations or suicidal thoughts as per psychiatry. Hopefully, she will be discharged on Monday like vickey benjamin tells me. Continue with aggressive treatment and care. Jason Contreras DO cc: [id number] TT: 09/03/2016 13:03:07 Confirmation # [id number] Dictation # [id number]
[2016-09-03] MEDS: Divalproex 500 mg ER (ONCE DAILY formulation) PO SCH (21:10)
--- NOTE | 2016-09-04 08:38 | PCM.PYCHPN ---
Psychiatric Progress Note - Psychiatric Progress Note Patient seen today, length of contact: 25 minutes Patient Chief Complaint: "better" Problems Identified/Issues Discussed: I reviewed recent notes and met with patient at bedside. Patient remains alert, oriented x3, superficially bright and cooperative. Consistently indicates that she is doing better. She denies recurrence of hallucinations or suicidal thoughts. Patient doesn't appear to be actively responding to internal stimuli and she is less internally preoccupied. She is not overtly bizarre. Has been eating and sleeping well. Nursing notes also indicates that patient has been in good control and generally pleasant on the unit. Appearance is well-kempt and patient is getting less oddly related as the admission and titration of clozaril progresses. Presently patient denies having any new discomfort or pain. There were no behavioral issues over the weekend. Diagnostic Results: Schizoaffective Disorder Medication Change: Yes (Clozaril was increased) Medical Record Reviewed: Yes (notes, reports, labs, vitals) Mental Status Examination - Cognitive Function Orientation: Person, Place, Situation Memory: Intact Attention: Poor Concentration: Poor Association: Loose Fund of Knowledge: Poor - Mood Mood: Euphoric - Affect Affect: Broad, Constricted, Flat - Speech Speech: Pressured (disorganized and overproductive) - Formal Thought Process Formal Thought Process: Hallucinations, Loosening of associations, Circumstantial - Suicidal Ideation Suicidal Ideation: No - Homicidal Ideation Homicidal Ideation: No Goal/Treatment Plan - Goal/Treatment Plan Need for Continued Stay: Remain at risks for inpatient hospitalization, Severe depression anxiety, Discharge may exacerbated symptoms, Failed transitioning, Severe functional impairment Progress Toward Problem(s) and Goals/Treatment Plan: * group, milieu and supportive tx * Appreciate f/u by Dr. Contreras on 09/03/16~no new recommendations * No new labs overnight * Clozaril increased to 200 mg AM + 150 mg HS on 09/04/16 * Vitals reviewed and noted below: Selected Entries 09/03/16 09/03/16 06:00 17:50 Temperature 97.6 F Pulse Rate 81 97 H Respiratory 18 Rate Blood Pressure 114/81 132/91 H RECENT FLOOR LABS NOTED BELOW 08/26/16 09:10 Triglycerides 322 H Cholesterol 253 H LDL Cholesterol Direct 178 H ER LABS AND STUDIES NOTED BELOW 08/25/16 17:35: Urine Opiates Screen Negative, Urine Methadone Screen Negative, Ur Barbiturates Screen Negative, Ur Phencyclidine Scrn Negative, Ur Amphetamines Screen Negative, U Benzodiazepines Scrn Negative, U Oth Cocaine Metabols Negative, U Cannabinoids Screen Negative 08/25/16 13:55: WBC 10.2, RBC 4.36, Hgb 12.4, Hct 37.0, MCV 84.9, MCH 28.4, MCHC 33.5, RDW 16.9 H, Plt Count 376, MPV 9.2, Gran % 57.3, Lymph % (Auto) 33.7 , [place] % (Auto) 7.4 H, Eos % (Auto) 1.2 L, Baso % (Auto) 0.4, Gran # 5.85, Lymph # 3.4, [place] # 0.8 H, Eos # 0.1, Baso # 0.04, Sodium 138, Potassium 4.1, Chloride 100, Carbon Dioxide 22, Anion Gap 20, BUN 10, Creatinine 0.5, Est GFR ( Amer) > 60, Est GFR (Non-Af Amer) > 60, Random Glucose 199 H, Calcium 9.7, Total Bilirubin 0.5, AST 28, ALT 31, Alkaline Phosphatase 73, Total Protein 8.2, Albumin 4.2, Globulin 4.0, Albumin/Globulin Ratio 1.1, Urine Color Yellow, Urine Appearance Clear, Urine pH 6.0, Ur Specific [place] >= 1.030, Urine Protein Trace H, Urine Glucose (UA) Negative, Urine Ketones 40 H, Urine Blood Negative, Urine Nitrate Negative, Urine Bilirubin Negative, Urine Urobilinogen 0.2, Ur Leukocyte Esterase Trace H, Urine RBC 0 - 2, Urine WBC 2 - 5, Ur Epithelial Cells 3 - 4, Urine Bacteria Few, Urine HCG, Qual Negative, Salicylates < 1 L, Acetaminophen < 10.0 L, Alcohol, Quantitative < 10 EKG Interpretation EKG shows sinus tachycardia at [address] changes, no interval changes. Estimated Date of D/C: 09/02/16
[2016-09-04] MEDS: Iron Complex Polysacch 150mg Cap PO SCH (09:06)
--- NOTE | 2016-09-04 10:49 | PN ---
DATE: 09/04/2016 I saw her in her room, resting comfortably in bed. She is feeling well, no complaints. She is doing better with her medications. She is currently on aspirin, Clozaril, Cogentin, Cozaar, Colace, Depakote, Ferrex, Glucophage and Zet ia. PHYSICAL EXAMINATION: VITAL SIGNS: Temp 98.2, 82 pulse, 126/92 blood pressure which is high for her, 19 respiratory rate. HEENT: Her head is atraumatic, normocephalic. HEART: Regular rate. LUNGS: Clear to auscultation. ABDOMEN: Soft, obese. EXTREMITIES: No edema. She is on metformin, iron, Cozaar at 100. I will keep an eye on her blood pressure. This is the fir st time it went up. She is seeing the psychiatrist and she is improving with her psychiatric issues. We will continue with aggressive treatment and care. We will keep an eye on her blood pressure. I might add another blood pressure pill if it continues to elevate, but she is comfortable and much im proved. She is here for depression, diabetes, hypertension. She is supposed to go home tomorrow. Jason Contreras DO cc: [id number] TT: 09/04/2016 10:48:09 Confirmation # [id number] Dictation # [id number] en
[2016-09-04] MEDS: Divalproex 500 mg ER (ONCE DAILY formulation) PO SCH (21:33)
[2016-09-05] MEDS: Iron Complex Polysacch 150mg Cap PO SCH (08:18)
--- NOTE | 2016-09-05 08:34 | PN ---
DATE: 09/05/2016 I saw the patient in the dayroom. She is sitting comfortably watching television. She is in good spi rits. She tells me she is going home today. She is doing much better than when she came in. She sa ys the depression has lifted, no more bad feelings. Her blood pressure and diabetes numbers are also good. She promises she will take the medications and follow up on the outpatient. She asked me que stions about being outside. We discussed at length the importance of her following directions. She said she will. PHYSICAL EXAMINATION: VITAL SIGNS: 97.9 temp, 85 pulse, 129/94 blood pressure, 22 respiratory rate. HEENT: Head is atraumatic, normocephalic. HEART: Regular rate. LUNGS: Clear to auscultation. ABDOMEN: Soft. EXTREMITIES: No edema. MEDICATIONS: She is currently on aspirin, Clozaril, Cogentin, Colace, Cozaar, Depakote, ferrous, Glu cophage and Zetia. I asked her to be on a low-salt diet. She is to follow up with her primary care doctor on the outpat ient for the blood pressure that is a little bit high. I am going to give her Norvasc 2.5 mg to add to her Cozaar for the blood pressure, and she will follow up on the outpatient with her primary care doctor to get blood pressure checked. Hopefully she will be able to be discharged today by psychiatr y. I will also check her labs and her blood pressure tomorrow. Jason Contreras DO cc: [id number] TT: 09/05/2016 08:34:32 Confirmation # [id number] Dictation # [id number] donna
--- NOTE | 2016-09-05 16:22 | PCM.PYCHPN ---
Psychiatric Progress Note - Psychiatric Progress Note Patient seen today, length of contact: 30 minutes Patient Chief Complaint: "this is my drawing of my , here are his wings, he is like an eloisa" (pt delusional, pt is not ) Problems Identified/Issues Discussed: Suicide/ homicide prevention, past psychiatric h/o, current psychiatric symptoms , medical problems, risk/benefits and alternatives of medications, medications compliance, coping strategies, substance abuse h/o, relapse prevention, importance of follow up with psychiatrist and therapist, discharge plan. Medical Problems: DM, hyperlipidemia, HTN Diagnostic Results: 08/27/16 07:30 08/27/16 07:30 Lab Results 09/02/16 16:10: POC Glucose (mg/dL) 213 H 09/02/16 12:05: POC Glucose (mg/dL) 228 H 09/02/16 07:19: POC Glucose (mg/dL) 156 H 09/01/16 22:07: POC Glucose (mg/dL) 164 H 09/01/16 16:09: POC Glucose (mg/dL) 137 H 09/01/16 11:36: POC Glucose (mg/dL) 217 H 09/01/16 07:46: POC Glucose (mg/dL) 137 H 08/31/16 21:47: POC Glucose (mg/dL) 140 H 08/31/16 16:05: POC Glucose (mg/dL) 179 H 08/31/16 11:35: POC Glucose (mg/dL) 151 H 08/31/16 07:30: Valproic Acid 63 08/31/16 07:27: POC Glucose (mg/dL) 153 H 08/30/16 21:52: POC Glucose (mg/dL) 210 H 08/30/16 16:16: POC Glucose (mg/dL) 124 H 08/30/16 11:09: POC Glucose (mg/dL) 144 H 08/30/16 07:34: POC Glucose (mg/dL) 147 H 08/29/16 21:53: POC Glucose (mg/dL) 205 H 08/29/16 16:59: POC Glucose (mg/dL) 216 H 08/29/16 11:33: POC Glucose (mg/dL) 143 H 08/29/16 07:35: POC Glucose (mg/dL) 155 H 08/28/16 21:28: POC Glucose (mg/dL) 162 H 08/28/16 16:16: POC Glucose (mg/dL) 160 H 08/28/16 11:13: POC Glucose (mg/dL) 126 H 08/28/16 07:27: POC Glucose (mg/dL) 148 H 08/27/16 21:09: POC Glucose (mg/dL) 209 H 08/27/16 16:26: POC Glucose (mg/dL) 195 H 08/27/16 12:47: POC Glucose (mg/dL) 253 H 08/27/16 07:30: WBC 9.2, RBC 3.96, Hgb 11.1 L, Hct 33.2 L, MCV 83.8, MCH 28.0, MCHC 33.4, RDW 16.7 H, Plt Count 317, MPV 9.2, Sodium 139, Potassium 4.2, Chloride 101, Carbon Dioxide 26, Anion Gap 16, BUN 8, Creatinine 0.4 L, Est GFR ( Amer) > 60, Est GFR (Non-Af Amer) > 60, Random Glucose 150 H, Calcium 9.0, Total Bilirubin 0.3, AST 25, ALT 33, Alkaline Phosphatase 70, Total Protein 7.2, Albumin 3.9, Globulin 3.4, Albumin/Globulin Ratio 1.1, Valproic Acid 18 L 08/27/16 07:18: POC Glucose (mg/dL) 153 H 08/26/16 21:25: POC Glucose (mg/dL) 175 H 08/26/16 16:09: POC Glucose (mg/dL) 177 H 08/26/16 12:07: POC Glucose (mg/dL) 166 H 08/26/16 09:10: Fasting Glucose 247 H, Triglycerides 322 H, Cholesterol 253 H, LDL Cholesterol Direct 178 H, HDL Cholesterol 32 08/26/16 07:37: POC Glucose (mg/dL) 161 H 08/26/16 07:20: Valproic Acid 25 L 08/25/16 21:39: POC Glucose (mg/dL) 206 H 08/25/16 17:35: Urine Opiates Screen Negative, Urine Methadone Screen Negative, Ur Barbiturates Screen Negative, Ur Phencyclidine Scrn Negative, Ur Amphetamines Screen Negative, U Benzodiazepines Scrn Negative, U Oth Cocaine Metabols Negative, U Cannabinoids Screen Negative 08/25/16 13:55: WBC 10.2, RBC 4.36, Hgb 12.4, Hct 37.0, MCV 84.9, MCH 28.4, MCHC 33.5, RDW 16.9 H, Plt Count 376, MPV 9.2, Gran % 57.3, Lymph % (Auto) 33.7 , [place] % (Auto) 7.4 H, Eos % (Auto) 1.2 L, Baso % (Auto) 0.4, Gran # 5.85, Lymph # 3.4, [place] # 0.8 H, Eos # 0.1, Baso # 0.04, Sodium 138, Potassium 4.1, Chloride 100, Carbon Dioxide 22, Anion Gap 20, BUN 10, Creatinine 0.5, Est GFR ( Amer) > 60, Est GFR (Non-Af Amer) > 60, Random Glucose 199 H, Calcium 9.7, Total Bilirubin 0.5, AST 28, ALT 31, Alkaline Phosphatase 73, Total Protein 8.2, Albumin 4.2, Globulin 4.0, Albumin/Globulin Ratio 1.1, Urine Color Yellow, Urine Appearance Clear, Urine pH 6.0, Ur Specific [place] >= 1.030, Urine Protein Trace H, Urine Glucose (UA) Negative, Urine Ketones 40 H, Urine Blood Negative, Urine Nitrate Negative, Urine Bilirubin Negative, Urine Urobilinogen 0.2, Ur Leukocyte Esterase Trace H, Urine RBC 0 - 2, Urine WBC 2 - 5, Ur Epithelial Cells 3 - 4, Urine Bacteria Few, Urine HCG, Qual Negative, Salicylates < 1 L, Acetaminophen < 10.0 L, Alcohol, Quantitative < 10 Vital Signs Temp Pulse Pulse Resp BP Pulse Ox 09/02/16 16:34 91 H 103/64 09/02/16 06:27 98.2 F 81 19 122/84 09/01/16 16:42 91 H 103/67 09/01/16 06:42 98.2 F 78 20 120/78 08/31/16 16:31 100 H 127/90 08/31/16 06:00 98.2 F 80 18 128/94 H 08/30/16 16:37 86 118/76 08/30/16 06:29 98.4 F 75 20 128/87 08/29/16 16:30 92 H 129/84 08/29/16 06:44 97.7 F 75 16 113/78 98 08/28/16 16:00 90 108/70 08/28/16 06:00 97.9 F 89 20 128/84 08/27/16 16:11 82 126/89 08/27/16 06:00 97.9 F 80 18 117/81 08/26/16 16:16 96 H 138/95 H 08/26/16 08:19 97.8 F 78 18 122/77 08/25/16 23:01 95 H 17 08/25/16 19:39 98.6 F 76 20 123/80 99 08/25/16 16:52 66 18 125/64 99 08/25/16 15:30 69 18 128/69 99 08/25/16 14:13 98.2 F 74 18 132/71 99 Temp Pulse Resp BP Pulse Ox 97.9 F 85 22 129/94 H 98 09/05/16 07:14 09/05/16 09:33 09/05/16 07:14 09/05/16 09:33 08/29/16 06:44 DSM 5 Symptoms Update: Patient is a 40 yo AA female, psychiatric history of Schizoaffective Disorder, no drug or alcohol issues, numerous admissions, followed by [facility] PACT who presented to our ER reporting symptoms of depression, SI, AH, similar to her multiple other presentations. this database report writer is very familiar with this pt from the multiple admissions to this facility. pt was seen today at the treatment team, presented to have acceptable personal hygiene, but a lot of food stains on pt's clothing. Pt presented to be psychotic, seems to be obsessed with the drawing of ", he is my ", pt is delusional, not , pt has multiple drawings, copies done and filed in pt's chart. pt also presented to be disorganized, said that she should be on any cholesterol pill because "it could affect my walking", had difficulties to explain why. Pt has no behavioral issues, patient is superficial, at times does not make much sense, no aggression or agitations. meds were confirmed by pt's PACT team, pt is on titration dose of clozaril, pt seems to be far from her baseline. pt tolerates meds well, no side effects observed or reported. AIMS 0, no EPS. Diagnostic Results: Schizoaffective Disorder Medication Change: Yes (Clozaril was increased) Medical Record Reviewed: Yes (notes, reports, labs, vitals) Consults ordered or reviewed: medical consult appreciated see notes for more detailed information Mental Status Examination - Cognitive Function Orientation: Person, Place, Situation Memory: Intact Attention: Poor Concentration: Poor Association: Loose Fund of Knowledge: Poor - Mood Mood: Euphoric - Affect Affect: Broad, Constricted, Flat - Speech Speech: Pressured (disorganized and overproductive) - Formal Thought Process Formal Thought Process: Hallucinations, Loosening of associations, Circumstantial - Suicidal Ideation Suicidal Ideation: No - Homicidal Ideation Homicidal Ideation: No Goal/Treatment Plan - Goal/Treatment Plan Need for Continued Stay: Remain at risks for inpatient hospitalization, Severe depression anxiety, Discharge may exacerbated symptoms, Failed transitioning, Severe functional impairment Progress Toward Problem(s) and Goals/Treatment Plan: U, structure, supportive therapy Clozaril 200 mg at the morning time and 150mg at hs, (pt was on 200mg am and 400 mg at the nighttime pt is registered on Clozaril REMS, ANC was filed by Depopal extended-release 1000 mg at the nighttime for mood stabilization will f/u on levels Haldol decanoate 100 mg IM every monthly last dose was given August 24 Cogentin 1 mg twice a day for EPS medical meds as per medical team SW evaluation d/w RN from PACT team Estimated Date of D/C: 09/09/16 (will monitor closely)
[2016-09-05] MEDS: Divalproex 500 mg ER (ONCE DAILY formulation) PO SCH (22:04)
[2016-09-06] MEDS: Iron Complex Polysacch 150mg Cap PO SCH (09:03)
--- NOTE | 2016-09-06 09:21 | PN ---
DATE: 09/06/2016 I saw the patient resting in bed. She thought she was going home yesterday. She tells me today she is going home. She is feeling well, still no complaints. She is eating well, participating. She is on aspirin, Clozaril, Cogentin, Colace, Cozaar, Depakote, Ferrex, Glucophage, Norvasc and Zeti a. PHYSICAL EXAMINATION: VITAL SIGNS: Temp 97.9, 85 pulse, blood pressure is still a little bit high 138/96, 134/96. I am go ing to increase her Norvasc to 5 mg. Respiratory rate 22. HEENT: Her head is atraumatic, normocephalic. HEART: Regular rate. LUNGS: Clear to auscultation. ABDOMEN: Soft. EXTREMITIES: No edema. I am going to increase her Norvasc to 5 mg today. LABORATORIES: Last were on the and she did well. Last blood sugar was 149. She tells me she is feeling better and in good spirits. We will continue as per psychiatry. She caren l have to follow up with her doctor on the outpatient to get a blood pressure check and we will incre ase her Norvasc to 5 mg today. She is here for depression, diabetes and hypertension. Jason Contreras DO cc: [id number] TT: 09/06/2016 09:20:38 Confirmation # [id number] Dictation # [id number] en
--- NOTE | 2016-09-06 17:17 | PCM.PYCHPN ---
Psychiatric Progress Note - Psychiatric Progress Note Patient seen today, length of contact: 30 minutes Patient Chief Complaint: "[place] fly to a higher new heights". Problems Identified/Issues Discussed: Suicide/ homicide prevention, past psychiatric h/o, current psychiatric symptoms , medical problems, risk/benefits and alternatives of medications, medications compliance, coping strategies, substance abuse h/o, relapse prevention, importance of follow up with psychiatrist and therapist, discharge plan. Medical Problems: DM, hyperlipidemia, HTN Diagnostic Results: 08/27/16 07:30 08/27/16 07:30 Lab Results 09/02/16 16:10: POC Glucose (mg/dL) 213 H 09/02/16 12:05: POC Glucose (mg/dL) 228 H 09/02/16 07:19: POC Glucose (mg/dL) 156 H 09/01/16 22:07: POC Glucose (mg/dL) 164 H 09/01/16 16:09: POC Glucose (mg/dL) 137 H 09/01/16 11:36: POC Glucose (mg/dL) 217 H 09/01/16 07:46: POC Glucose (mg/dL) 137 H 08/31/16 21:47: POC Glucose (mg/dL) 140 H 08/31/16 16:05: POC Glucose (mg/dL) 179 H 08/31/16 11:35: POC Glucose (mg/dL) 151 H 08/31/16 07:30: Valproic Acid 63 08/31/16 07:27: POC Glucose (mg/dL) 153 H 08/30/16 21:52: POC Glucose (mg/dL) 210 H 08/30/16 16:16: POC Glucose (mg/dL) 124 H 08/30/16 11:09: POC Glucose (mg/dL) 144 H 08/30/16 07:34: POC Glucose (mg/dL) 147 H 08/29/16 21:53: POC Glucose (mg/dL) 205 H 08/29/16 16:59: POC Glucose (mg/dL) 216 H 08/29/16 11:33: POC Glucose (mg/dL) 143 H 08/29/16 07:35: POC Glucose (mg/dL) 155 H 08/28/16 21:28: POC Glucose (mg/dL) 162 H 08/28/16 16:16: POC Glucose (mg/dL) 160 H 08/28/16 11:13: POC Glucose (mg/dL) 126 H 08/28/16 07:27: POC Glucose (mg/dL) 148 H 08/27/16 21:09: POC Glucose (mg/dL) 209 H 08/27/16 16:26: POC Glucose (mg/dL) 195 H 08/27/16 12:47: POC Glucose (mg/dL) 253 H 08/27/16 07:30: WBC 9.2, RBC 3.96, Hgb 11.1 L, Hct 33.2 L, MCV 83.8, MCH 28.0, MCHC 33.4, RDW 16.7 H, Plt Count 317, MPV 9.2, Sodium 139, Potassium 4.2, Chloride 101, Carbon Dioxide 26, Anion Gap 16, BUN 8, Creatinine 0.4 L, Est GFR ( Amer) > 60, Est GFR (Non-Af Amer) > 60, Random Glucose 150 H, Calcium 9.0, Total Bilirubin 0.3, AST 25, ALT 33, Alkaline Phosphatase 70, Total Protein 7.2, Albumin 3.9, Globulin 3.4, Albumin/Globulin Ratio 1.1, Valproic Acid 18 L 08/27/16 07:18: POC Glucose (mg/dL) 153 H 08/26/16 21:25: POC Glucose (mg/dL) 175 H 08/26/16 16:09: POC Glucose (mg/dL) 177 H 08/26/16 12:07: POC Glucose (mg/dL) 166 H 08/26/16 09:10: Fasting Glucose 247 H, Triglycerides 322 H, Cholesterol 253 H, LDL Cholesterol Direct 178 H, HDL Cholesterol 32 08/26/16 07:37: POC Glucose (mg/dL) 161 H 08/26/16 07:20: Valproic Acid 25 L 08/25/16 21:39: POC Glucose (mg/dL) 206 H 08/25/16 17:35: Urine Opiates Screen Negative, Urine Methadone Screen Negative, Ur Barbiturates Screen Negative, Ur Phencyclidine Scrn Negative, Ur Amphetamines Screen Negative, U Benzodiazepines Scrn Negative, U Oth Cocaine Metabols Negative, U Cannabinoids Screen Negative 08/25/16 13:55: WBC 10.2, RBC 4.36, Hgb 12.4, Hct 37.0, MCV 84.9, MCH 28.4, MCHC 33.5, RDW 16.9 H, Plt Count 376, MPV 9.2, Gran % 57.3, Lymph % (Auto) 33.7 , [place] % (Auto) 7.4 H, Eos % (Auto) 1.2 L, Baso % (Auto) 0.4, Gran # 5.85, Lymph # 3.4, [place] # 0.8 H, Eos # 0.1, Baso # 0.04, Sodium 138, Potassium 4.1, Chloride 100, Carbon Dioxide 22, Anion Gap 20, BUN 10, Creatinine 0.5, Est GFR ( Amer) > 60, Est GFR (Non-Af Amer) > 60, Random Glucose 199 H, Calcium 9.7, Total Bilirubin 0.5, AST 28, ALT 31, Alkaline Phosphatase 73, Total Protein 8.2, Albumin 4.2, Globulin 4.0, Albumin/Globulin Ratio 1.1, Urine Color Yellow, Urine Appearance Clear, Urine pH 6.0, Ur Specific [place] >= 1.030, Urine Protein Trace H, Urine Glucose (UA) Negative, Urine Ketones 40 H, Urine Blood Negative, Urine Nitrate Negative, Urine Bilirubin Negative, Urine Urobilinogen 0.2, Ur Leukocyte Esterase Trace H, Urine RBC 0 - 2, Urine WBC 2 - 5, Ur Epithelial Cells 3 - 4, Urine Bacteria Few, Urine HCG, Qual Negative, Salicylates < 1 L, Acetaminophen < 10.0 L, Alcohol, Quantitative < 10 Vital Signs Temp Pulse Pulse Resp BP Pulse Ox 09/02/16 16:34 91 H 103/64 09/02/16 06:27 98.2 F 81 19 122/84 09/01/16 16:42 91 H 103/67 09/01/16 06:42 98.2 F 78 20 120/78 08/31/16 16:31 100 H 127/90 08/31/16 06:00 98.2 F 80 18 128/94 H 08/30/16 16:37 86 118/76 08/30/16 06:29 98.4 F 75 20 128/87 08/29/16 16:30 92 H 129/84 08/29/16 06:44 97.7 F 75 16 113/78 98 08/28/16 16:00 90 108/70 08/28/16 06:00 97.9 F 89 20 128/84 08/27/16 16:11 82 126/89 08/27/16 06:00 97.9 F 80 18 117/81 08/26/16 16:16 96 H 138/95 H 08/26/16 08:19 97.8 F 78 18 122/77 08/25/16 23:01 95 H 17 08/25/16 19:39 98.6 F 76 20 123/80 99 08/25/16 16:52 66 18 125/64 99 08/25/16 15:30 69 18 128/69 99 08/25/16 14:13 98.2 F 74 18 132/71 99 Temp Pulse Resp BP Pulse Ox 97.9 F 85 22 129/94 H 98 09/05/16 07:14 09/05/16 09:33 09/05/16 07:14 09/05/16 09:33 08/29/16 06:44 DSM 5 Symptoms Update: Patient is a 40 yo AA female, psychiatric history of Schizoaffective Disorder, no drug or alcohol issues, numerous admissions, followed by [facility] PACT who presented to our ER reporting symptoms of depression, SI, AH, similar to her multiple other presentations. this resume writer is very familiar with this pt from the multiple admissions to this facility. pt was seen today at the treatment team, presented to have acceptable personal hygiene, but a lot of food stains on pt's clothing. Pt presented to be psychotic, seems to be obsessed with the drawing of "", another three drawings with the statements like "[place], fly to a higher new heights"., pt is delusional, not , pt has multiple drawings, copies done and filed in pt's chart. pt also presented to be disorganized. Pt has no behavioral issues, patient is superficial, at times does not make much sense, no aggression or agitations. meds were confirmed by pt's PACT team, pt is on titration dose of clozaril, pt seems to be far from her baseline. pt tolerates meds well, no side effects observed or reported. AIMS 0, no EPS. Diagnostic Results: Schizoaffective Disorder Medication Change: Yes (Clozaril was increased) Medical Record Reviewed: Yes (notes, reports, labs, vitals) Consults ordered or reviewed: medical consult appreciated see notes for more detailed information Mental Status Examination - Cognitive Function Orientation: Person, Place, Situation Memory: Intact Attention: Poor Concentration: Poor Association: Loose Fund of Knowledge: Poor - Mood Mood: Euphoric - Affect Affect: Broad, Constricted, Flat - Speech Speech: Pressured (disorganized and overproductive) - Formal Thought Process Formal Thought Process: Hallucinations, Loosening of associations, Circumstantial - Suicidal Ideation Suicidal Ideation: No - Homicidal Ideation Homicidal Ideation: No Goal/Treatment Plan - Goal/Treatment Plan Need for Continued Stay: Remain at risks for inpatient hospitalization, Severe depression anxiety, Discharge may exacerbated symptoms, Failed transitioning, Severe functional impairment Progress Toward Problem(s) and Goals/Treatment Plan: U, structure, supportive therapy Clozaril 200 mg at the morning time and 200mg at hs, (pt was on 200mg am and 400 mg at the nighttime pt is registered on Clozaril REMS, ANC was filed by Dr.Rubin Echavarria extended-release 1000 mg at the nighttime for mood stabilization will f/u on levels Haldol decanoate 100 mg IM every monthly last dose was given August 24 Cogentin 1 mg twice a day for EPS medical meds as per medical team SW evaluation d/w RN from PACT team Estimated Date of D/C: 09/09/16 (will monitor closely)
[2016-09-06] MEDS: Divalproex 500 mg ER (ONCE DAILY formulation) PO SCH (21:36)
[2016-09-07] MEDS: Iron Complex Polysacch 150mg Cap PO SCH (08:50)
--- NOTE | 2016-09-07 10:53 | PN ---
DATE: 09/07/2016 She is resting comfortably in bed, slept well, no complaints. She thought she was going home yesterd ay, but I guess not yet. She is on aspirin, Clozaril, Cogentin, Colace, Cozaar, Depakote, iron, Glu cophage, Norvasc and Zetia PHYSICAL EXAMINATION: VITAL SIGNS: 97.8 temp, 81 pulse, and blood pressure is finally 101/65, a nice normal blood pressure , 20 respiratory rate. HEENT: Her head is atraumatic, normocephalic. Throat is moist. NECK: Supple. HEART: Regular rate. LUNGS: Decreased breath sounds, but clear to auscultation. ABDOMEN: Soft, obese, nontender. EXTREMITIES: No edema. Last labs on 08/27 and she did well. She is being seen by psychiatry. They are adjusting her medications. She is going to groups. They are adjusting her meds. She has severe depression and anxiety, diabetes, hypertension, high choleste rol. Continue as per psychiatry. We will follow. Jason Contreras DO cc: [id number] TT: 09/07/2016 10:52:30 Confirmation # [id number] Dictation # [id number] tn
--- NOTE | 2016-09-07 16:48 | PCM.PYCHPN ---
Psychiatric Progress Note - Psychiatric Progress Note Patient seen today, length of contact: 30 minutes Patient Chief Complaint: "incident how I became mentally ill" Problems Identified/Issues Discussed: Suicide/ homicide prevention, past psychiatric h/o, current psychiatric symptoms , medical problems, risk/benefits and alternatives of medications, medications compliance, coping strategies, substance abuse h/o, relapse prevention, importance of follow up with psychiatrist and therapist, discharge plan. Medical Problems: DM, hyperlipidemia, HTN Diagnostic Results: 08/27/16 07:30 08/27/16 07:30 Lab Results 09/02/16 16:10: POC Glucose (mg/dL) 213 H 09/02/16 12:05: POC Glucose (mg/dL) 228 H 09/02/16 07:19: POC Glucose (mg/dL) 156 H 09/01/16 22:07: POC Glucose (mg/dL) 164 H 09/01/16 16:09: POC Glucose (mg/dL) 137 H 09/01/16 11:36: POC Glucose (mg/dL) 217 H 09/01/16 07:46: POC Glucose (mg/dL) 137 H 08/31/16 21:47: POC Glucose (mg/dL) 140 H 08/31/16 16:05: POC Glucose (mg/dL) 179 H 08/31/16 11:35: POC Glucose (mg/dL) 151 H 08/31/16 07:30: Valproic Acid 63 08/31/16 07:27: POC Glucose (mg/dL) 153 H 08/30/16 21:52: POC Glucose (mg/dL) 210 H 08/30/16 16:16: POC Glucose (mg/dL) 124 H 08/30/16 11:09: POC Glucose (mg/dL) 144 H 08/30/16 07:34: POC Glucose (mg/dL) 147 H 08/29/16 21:53: POC Glucose (mg/dL) 205 H 08/29/16 16:59: POC Glucose (mg/dL) 216 H 08/29/16 11:33: POC Glucose (mg/dL) 143 H 08/29/16 07:35: POC Glucose (mg/dL) 155 H 08/28/16 21:28: POC Glucose (mg/dL) 162 H 08/28/16 16:16: POC Glucose (mg/dL) 160 H 08/28/16 11:13: POC Glucose (mg/dL) 126 H 08/28/16 07:27: POC Glucose (mg/dL) 148 H 08/27/16 21:09: POC Glucose (mg/dL) 209 H 08/27/16 16:26: POC Glucose (mg/dL) 195 H 08/27/16 12:47: POC Glucose (mg/dL) 253 H 08/27/16 07:30: WBC 9.2, RBC 3.96, Hgb 11.1 L, Hct 33.2 L, MCV 83.8, MCH 28.0, MCHC 33.4, RDW 16.7 H, Plt Count 317, MPV 9.2, Sodium 139, Potassium 4.2, Chloride 101, Carbon Dioxide 26, Anion Gap 16, BUN 8, Creatinine 0.4 L, Est GFR ( Amer) > 60, Est GFR (Non-Af Amer) > 60, Random Glucose 150 H, Calcium 9.0, Total Bilirubin 0.3, AST 25, ALT 33, Alkaline Phosphatase 70, Total Protein 7.2, Albumin 3.9, Globulin 3.4, Albumin/Globulin Ratio 1.1, Valproic Acid 18 L 08/27/16 07:18: POC Glucose (mg/dL) 153 H 08/26/16 21:25: POC Glucose (mg/dL) 175 H 08/26/16 16:09: POC Glucose (mg/dL) 177 H 08/26/16 12:07: POC Glucose (mg/dL) 166 H 08/26/16 09:10: Fasting Glucose 247 H, Triglycerides 322 H, Cholesterol 253 H, LDL Cholesterol Direct 178 H, HDL Cholesterol 32 08/26/16 07:37: POC Glucose (mg/dL) 161 H 08/26/16 07:20: Valproic Acid 25 L 08/25/16 21:39: POC Glucose (mg/dL) 206 H 08/25/16 17:35: Urine Opiates Screen Negative, Urine Methadone Screen Negative, Ur Barbiturates Screen Negative, Ur Phencyclidine Scrn Negative, Ur Amphetamines Screen Negative, U Benzodiazepines Scrn Negative, U Oth Cocaine Metabols Negative, U Cannabinoids Screen Negative 08/25/16 13:55: WBC 10.2, RBC 4.36, Hgb 12.4, Hct 37.0, MCV 84.9, MCH 28.4, MCHC 33.5, RDW 16.9 H, Plt Count 376, MPV 9.2, Gran % 57.3, Lymph % (Auto) 33.7 , [place] % (Auto) 7.4 H, Eos % (Auto) 1.2 L, Baso % (Auto) 0.4, Gran # 5.85, Lymph # 3.4, [place] # 0.8 H, Eos # 0.1, Baso # 0.04, Sodium 138, Potassium 4.1, Chloride 100, Carbon Dioxide 22, Anion Gap 20, BUN 10, Creatinine 0.5, Est GFR ( Amer) > 60, Est GFR (Non-Af Amer) > 60, Random Glucose 199 H, Calcium 9.7, Total Bilirubin 0.5, AST 28, ALT 31, Alkaline Phosphatase 73, Total Protein 8.2, Albumin 4.2, Globulin 4.0, Albumin/Globulin Ratio 1.1, Urine Color Yellow, Urine Appearance Clear, Urine pH 6.0, Ur Specific [place] >= 1.030, Urine Protein Trace H, Urine Glucose (UA) Negative, Urine Ketones 40 H, Urine Blood Negative, Urine Nitrate Negative, Urine Bilirubin Negative, Urine Urobilinogen 0.2, Ur Leukocyte Esterase Trace H, Urine RBC 0 - 2, Urine WBC 2 - 5, Ur Epithelial Cells 3 - 4, Urine Bacteria Few, Urine HCG, Qual Negative, Salicylates < 1 L, Acetaminophen < 10.0 L, Alcohol, Quantitative < 10 Vital Signs Temp Pulse Pulse Resp BP Pulse Ox 09/02/16 16:34 91 H 103/64 09/02/16 06:27 98.2 F 81 19 122/84 09/01/16 16:42 91 H 103/67 09/01/16 06:42 98.2 F 78 20 120/78 08/31/16 16:31 100 H 127/90 08/31/16 06:00 98.2 F 80 18 128/94 H 08/30/16 16:37 86 118/76 08/30/16 06:29 98.4 F 75 20 128/87 08/29/16 16:30 92 H 129/84 08/29/16 06:44 97.7 F 75 16 113/78 98 08/28/16 16:00 90 108/70 08/28/16 06:00 97.9 F 89 20 128/84 08/27/16 16:11 82 126/89 08/27/16 06:00 97.9 F 80 18 117/81 08/26/16 16:16 96 H 138/95 H 08/26/16 08:19 97.8 F 78 18 122/77 08/25/16 23:01 95 H 17 08/25/16 19:39 98.6 F 76 20 123/80 99 08/25/16 16:52 66 18 125/64 99 08/25/16 15:30 69 18 128/69 99 08/25/16 14:13 98.2 F 74 18 132/71 99 Temp Pulse Resp BP Pulse Ox 97.9 F 85 22 129/94 H 98 09/05/16 07:14 09/05/16 09:33 09/05/16 07:14 09/05/16 09:33 08/29/16 06:44 DSM 5 Symptoms Update: Patient is a 40 yo AA female, psychiatric history of Schizoaffective Disorder, no drug or alcohol issues, numerous admissions, followed by [facility] PACT who presented to our ER reporting symptoms of depression, SI, AH, similar to her multiple other presentations. this movie writer is very familiar with this pt from the multiple admissions to this facility. pt was seen today at the [facility], presented to have acceptable personal hygiene. pt is psychotic and more irritable today, no drawing, pt's thought process is tangential and circumstantial, no much sense. Pt was taking about "incident how I became mentally ill", when was asked what did she mean by that pt went tangent about medications, about her family, never answered question. clozaril REMS labs notified today. meds were confirmed by pt's PACT team, pt is on titration dose of clozaril, pt seems to be far from her baseline. pt tolerates meds well, no side effects observed or reported. AIMS 0, no EPS. Diagnostic Results: Schizoaffective Disorder Medication Change: Yes (Clozaril was increased) Medical Record Reviewed: Yes (notes, reports, labs, vitals) Consults ordered or reviewed: medical consult appreciated see notes for more detailed information Mental Status Examination - Cognitive Function Orientation: Person, Place, Situation Memory: Intact Attention: Poor Concentration: Poor Association: Loose Fund of Knowledge: Poor - Mood Mood: Euphoric - Affect Affect: Broad, Constricted, Flat - Speech Speech: Pressured (disorganized and overproductive) - Formal Thought Process Formal Thought Process: Hallucinations, Loosening of associations, Circumstantial - Suicidal Ideation Suicidal Ideation: No - Homicidal Ideation Homicidal Ideation: No Goal/Treatment Plan - Goal/Treatment Plan Need for Continued Stay: Remain at risks for inpatient hospitalization, Severe depression anxiety, Discharge may exacerbated symptoms, Failed transitioning, Severe functional impairment Progress Toward Problem(s) and Goals/Treatment Plan: U, structure, supportive therapy Clozaril 200 mg at the morning time and 250mg at hs, (pt was on 200mg am and 400 mg at the nighttime pt is registered on Clozaril REMS, ANC was filed by this movie writer 09/07/16 Depakote extended-release 1000 mg at the nighttime for mood stabilization will f/u on levels Haldol decanoate 100 mg IM every monthly last dose was given August 24 Cogentin 1 mg twice a day for EPS medical meds as per medical team SW evaluation d/w RN from PACT team Estimated Date of D/C: 09/09/16 (will monitor closely)
[2016-09-07] MEDS: Divalproex 500 mg ER (ONCE DAILY formulation) PO SCH (21:20)
[2016-09-08] MEDS: Iron Complex Polysacch 150mg Cap PO SCH (09:05)
--- NOTE | 2016-09-08 09:15 | PN ---
DATE: 09/08/2016 I saw the patient in the dining room eating her breakfast. She is comfortable. She is feeling well. She is on aspirin, Clozaril, Cogentin, Colace, Cozaar, Depakote, Ferrex, Glucophage, Norvasc, and Z etia. She is in good spirits, no acute distress. She has no complaints at this time. Last blood pimentel gar was 144, which is much better than it was. PHYSICAL EXAMINATION: VITAL SIGNS: 97.9 temp, 88 pulse, 125/81 blood pressure, 18 respiratory rate. HEENT: Head is atraumatic, normocephalic. HEART: Regular rate. LUNGS: Clear to auscultation. ABDOMEN: Soft. EXTREMITIES: No edema. MEDICATIONS: She is currently on those medications. LABORATORY DATA: Her last labs were on 08/27/2016. I am going to order labs again for tomorrow. She is going to be here a little while longer, I unders tand, for more medication changes. She is here for depression, schizophrenia, diabetes, hypertension, high cholesterol. Will continue with aggressive treatment and care as per psychiatry. I encouraged her to participate in groups, take the medications. She seemed very pleasant as per psychiatry. Jason Contreras DO cc: [id number] TT: 09/08/2016 09:14:57 Confirmation # [id number] Dictation # [id number] mn
--- NOTE | 2016-09-08 14:14 | PCM.PYCHPN ---
Psychiatric Progress Note - Psychiatric Progress Note Patient seen today, length of contact: 30 minutes Patient Chief Complaint: "I am just fine, hanging in there" Problems Identified/Issues Discussed: Suicide/ homicide prevention, past psychiatric h/o, current psychiatric symptoms , medical problems, risk/benefits and alternatives of medications, medications compliance, coping strategies, substance abuse h/o, relapse prevention, importance of follow up with psychiatrist and therapist, discharge plan. Medical Problems: DM, hyperlipidemia, HTN Diagnostic Results: 08/27/16 07:30 08/27/16 07:30 Lab Results 09/02/16 16:10: POC Glucose (mg/dL) 213 H 09/02/16 12:05: POC Glucose (mg/dL) 228 H 09/02/16 07:19: POC Glucose (mg/dL) 156 H 09/01/16 22:07: POC Glucose (mg/dL) 164 H 09/01/16 16:09: POC Glucose (mg/dL) 137 H 09/01/16 11:36: POC Glucose (mg/dL) 217 H 09/01/16 07:46: POC Glucose (mg/dL) 137 H 08/31/16 21:47: POC Glucose (mg/dL) 140 H 08/31/16 16:05: POC Glucose (mg/dL) 179 H 08/31/16 11:35: POC Glucose (mg/dL) 151 H 08/31/16 07:30: Valproic Acid 63 08/31/16 07:27: POC Glucose (mg/dL) 153 H 08/30/16 21:52: POC Glucose (mg/dL) 210 H 08/30/16 16:16: POC Glucose (mg/dL) 124 H 08/30/16 11:09: POC Glucose (mg/dL) 144 H 08/30/16 07:34: POC Glucose (mg/dL) 147 H 08/29/16 21:53: POC Glucose (mg/dL) 205 H 08/29/16 16:59: POC Glucose (mg/dL) 216 H 08/29/16 11:33: POC Glucose (mg/dL) 143 H 08/29/16 07:35: POC Glucose (mg/dL) 155 H 08/28/16 21:28: POC Glucose (mg/dL) 162 H 08/28/16 16:16: POC Glucose (mg/dL) 160 H 08/28/16 11:13: POC Glucose (mg/dL) 126 H 08/28/16 07:27: POC Glucose (mg/dL) 148 H 08/27/16 21:09: POC Glucose (mg/dL) 209 H 08/27/16 16:26: POC Glucose (mg/dL) 195 H 08/27/16 12:47: POC Glucose (mg/dL) 253 H 08/27/16 07:30: WBC 9.2, RBC 3.96, Hgb 11.1 L, Hct 33.2 L, MCV 83.8, MCH 28.0, MCHC 33.4, RDW 16.7 H, Plt Count 317, MPV 9.2, Sodium 139, Potassium 4.2, Chloride 101, Carbon Dioxide 26, Anion Gap 16, BUN 8, Creatinine 0.4 L, Est GFR ( Amer) > 60, Est GFR (Non-Af Amer) > 60, Random Glucose 150 H, Calcium 9.0, Total Bilirubin 0.3, AST 25, ALT 33, Alkaline Phosphatase 70, Total Protein 7.2, Albumin 3.9, Globulin 3.4, Albumin/Globulin Ratio 1.1, Valproic Acid 18 L 08/27/16 07:18: POC Glucose (mg/dL) 153 H 08/26/16 21:25: POC Glucose (mg/dL) 175 H 08/26/16 16:09: POC Glucose (mg/dL) 177 H 08/26/16 12:07: POC Glucose (mg/dL) 166 H 08/26/16 09:10: Fasting Glucose 247 H, Triglycerides 322 H, Cholesterol 253 H, LDL Cholesterol Direct 178 H, HDL Cholesterol 32 08/26/16 07:37: POC Glucose (mg/dL) 161 H 08/26/16 07:20: Valproic Acid 25 L 08/25/16 21:39: POC Glucose (mg/dL) 206 H 08/25/16 17:35: Urine Opiates Screen Negative, Urine Methadone Screen Negative, Ur Barbiturates Screen Negative, Ur Phencyclidine Scrn Negative, Ur Amphetamines Screen Negative, U Benzodiazepines Scrn Negative, U Oth Cocaine Metabols Negative, U Cannabinoids Screen Negative 08/25/16 13:55: WBC 10.2, RBC 4.36, Hgb 12.4, Hct 37.0, MCV 84.9, MCH 28.4, MCHC 33.5, RDW 16.9 H, Plt Count 376, MPV 9.2, Gran % 57.3, Lymph % (Auto) 33.7 , [place] % (Auto) 7.4 H, Eos % (Auto) 1.2 L, Baso % (Auto) 0.4, Gran # 5.85, Lymph # 3.4, [place] # 0.8 H, Eos # 0.1, Baso # 0.04, Sodium 138, Potassium 4.1, Chloride 100, Carbon Dioxide 22, Anion Gap 20, BUN 10, Creatinine 0.5, Est GFR ( Amer) > 60, Est GFR (Non-Af Amer) > 60, Random Glucose 199 H, Calcium 9.7, Total Bilirubin 0.5, AST 28, ALT 31, Alkaline Phosphatase 73, Total Protein 8.2, Albumin 4.2, Globulin 4.0, Albumin/Globulin Ratio 1.1, Urine Color Yellow, Urine Appearance Clear, Urine pH 6.0, Ur Specific [place] >= 1.030, Urine Protein Trace H, Urine Glucose (UA) Negative, Urine Ketones 40 H, Urine Blood Negative, Urine Nitrate Negative, Urine Bilirubin Negative, Urine Urobilinogen 0.2, Ur Leukocyte Esterase Trace H, Urine RBC 0 - 2, Urine WBC 2 - 5, Ur Epithelial Cells 3 - 4, Urine Bacteria Few, Urine HCG, Qual Negative, Salicylates < 1 L, Acetaminophen < 10.0 L, Alcohol, Quantitative < 10 Vital Signs Temp Pulse Pulse Resp BP Pulse Ox 09/02/16 16:34 91 H 103/64 09/02/16 06:27 98.2 F 81 19 122/84 09/01/16 16:42 91 H 103/67 09/01/16 06:42 98.2 F 78 20 120/78 08/31/16 16:31 100 H 127/90 08/31/16 06:00 98.2 F 80 18 128/94 H 08/30/16 16:37 86 118/76 08/30/16 06:29 98.4 F 75 20 128/87 08/29/16 16:30 92 H 129/84 08/29/16 06:44 97.7 F 75 16 113/78 98 08/28/16 16:00 90 108/70 08/28/16 06:00 97.9 F 89 20 128/84 08/27/16 16:11 82 126/89 08/27/16 06:00 97.9 F 80 18 117/81 08/26/16 16:16 96 H 138/95 H 08/26/16 08:19 97.8 F 78 18 122/77 08/25/16 23:01 95 H 17 08/25/16 19:39 98.6 F 76 20 123/80 99 08/25/16 16:52 66 18 125/64 99 08/25/16 15:30 69 18 128/69 99 08/25/16 14:13 98.2 F 74 18 132/71 99 Temp Pulse Resp BP Pulse Ox 97.9 F 85 22 129/94 H 98 09/05/16 07:14 09/05/16 09:33 09/05/16 07:14 09/05/16 09:33 08/29/16 06:44 Temp Pulse Resp BP Pulse Ox 97.9 F 88 18 125/81 98 09/08/16 06:31 09/08/16 06:31 09/08/16 06:31 09/08/16 06:31 08/29/16 06:44 DSM 5 Symptoms Update: Patient is a 40 yo AA female, psychiatric history of Schizoaffective Disorder, no drug or alcohol issues, numerous admissions, [facility] reporting symptoms of depression, SI, AH, similar to her multiple other presentations. pt was seen today in her room, presented to have acceptable personal hygiene, pt is slowly improving, pt is not obsessed with drawing as before. Pt still disorganized, thought process is tangential and circumstantial, a the same time pt is attending groups, pleasant and superficially cooperative. clozaril REMS labs notified. pt is not at her baseline yet. pt tolerates meds well, no side effects observed or reported. AIMS 0, no EPS. Diagnostic Results: Schizoaffective Disorder Medication Change: Yes (Clozaril was increased) Medical Record Reviewed: Yes (notes, reports, labs, vitals) Consults ordered or reviewed: medical consult appreciated see notes for more detailed information Mental Status Examination - Cognitive Function Orientation: Person, Place, Situation Memory: Intact Attention: Poor Concentration: Poor Association: Loose Fund of Knowledge: Poor - Mood Mood: Euphoric - Affect Affect: Broad, Constricted, Flat - Speech Speech: Pressured (disorganized and overproductive) - Formal Thought Process Formal Thought Process: Hallucinations, Loosening of associations, Circumstantial - Suicidal Ideation Suicidal Ideation: No - Homicidal Ideation Homicidal Ideation: No Goal/Treatment Plan - Goal/Treatment Plan Need for Continued Stay: Remain at risks for inpatient hospitalization, Severe depression anxiety, Discharge may exacerbated symptoms, Failed transitioning, Severe functional impairment Progress Toward Problem(s) and Goals/Treatment Plan: U, structure, supportive therapy this justowriter operator called and left a message to the pt's psychiatrist Clozaril 200 mg at the morning time and 300mg at hs, (pt was on 200mg am and 400 mg at the nighttime pt is registered on Clozaril REMS, ANC was filed by this justowriter operator 09/07/16 Depakote extended-release 1000 mg at the nighttime for mood stabilization will f/u on levels Haldol decanoate 100 mg IM every monthly last dose was given August 24 Cogentin 1 mg twice a day for EPS medical meds as per medical team SW evaluation d/w RN from PACT team Estimated Date of D/C: 09/14/16 (will monitor closely)
[2016-09-08] MEDS: Divalproex 500 mg ER (ONCE DAILY formulation) PO SCH (21:19)
[2016-09-09 07:41] LABS: HEMATOCRIT 33.8 % (36.0-48.0); MEAN CELL VOLUME 83.7 fL (80.0-105.0); MEAN CORPUSCULAR HGB CONC 33.4 g/dl (31.0-37.0); MEAN PLATELET VOLUME 8.4 fl (7.0-11.0); RED CELL DISTRIBUTION WIDTH 16.9 % (11.5-14.5); WHITE BLOOD COUNT 9.8 10^3/ul (4.5-11.0)
[2016-09-09 08:05] LABS: ALB/GLOB RATIO 1.1 (1.1-1.8); ALKALINE PHOSPHATASE 73 U/L (38-133); ALT/SGPT 24 U/L (7-56); AST/SGOT 21 U/L (15-39); BILIRUBIN,TOTAL 0.2 mg/dL (0.2-1.3); BLOOD UREA NITROGEN 10 mg/dL (7-21); CALCIUM 9.2 mg/dL (8.4-10.5); CARBON DIOXIDE 25 mmol/L (21-33); CHLORIDE 102 mmol/L (95-110); GFR AFRICAN-AMERICAN > 60; GLUCOSE,RANDOM 139 mg/dL (70-110); POTASSIUM 4.3 mmol/L (3.6-5.0); SODIUM 139 mmol/L (132-148); TOTAL PROTEIN 7.3 g/dL (5.8-8.3)
--- NOTE | 2016-09-09 08:50 | PN ---
DATE: 09/09/2016 I saw her in the day room at the psych unit. She is sitting out of bed to chair, waiting for [facility]. She is in good spirits. She has no complaints this morning. She slept well. No chest pain, no shortness of breath, no abdominal pain. She tells me she feels mentally clear. She is on chewable aspirin, Clozaril, Cogentin, Colace, Cozaar, Depakote, Ferrex, Glucophage, Norvasc and Zetia. PHYSICAL EXAMINATION: VITAL SIGNS: This morning are 98 temp, 84 pulse, 116/80 blood pressure and 20 respiratory rate. HEAD: Atraumatic, normocephalic. THROAT: Moist. NECK: Supple. HEART: Regular rate. LUNGS: Clear to auscultation. ABDOMEN: Soft, obese, nontender. EXTREMITIES: No edema. LABORATORIES: Last on the , she has a 9.8 white count, 11.3 hemoglobin, 33.8 hematocrit with 333 platelets. She has a 139 sodium, potassium 4.3, BUN 10, creatinine 0.5, GFR is greater than 60, sug ar is 139, calcium is 9.2, total bili is 0.2, AST is 21, ALT is 24, alkaline phosphatase 73, total pr otein 7.3, albumin is 3.8, the globulin is 3.6. She is here for numerous reasons, depression, diabetes, hypertension, high cholesterol, maybe a littl e schizophrenia. She did very well with her blood tests. I renewed all her medications medically. Continue as per psychiatry, adjusting medications. I do think she is improving. Jason Contreras DO cc: [id number] TT: 09/09/2016 08:50:17 Confirmation # [id number] Dictation # [id number] en
[2016-09-09] MEDS: Iron Complex Polysacch 150mg Cap PO SCH (09:58)
[2016-09-09] MEDS: Divalproex 500 mg ER (ONCE DAILY formulation) PO SCH (21:24)
[2016-09-10] MEDS: Iron Complex Polysacch 150mg Cap PO SCH (09:14)
--- NOTE | 2016-09-10 09:32 | PCM.PYCHPN ---
Psychiatric Progress Note - Psychiatric Progress Note Patient seen today, length of contact: 25 minutes Patient Chief Complaint: "better" Problems Identified/Issues Discussed: I reviewed recent notes and met with patient at bedside. Patient remains alert , oriented x3, superficially bright and cooperative. Consistently indicates that she is doing better. She denies recurrence of hallucinations or suicidal thoughts. Patient doesn't appear to be actively responding to internal stimuli and she is less internally preoccupied. She is not overtly bizarre. Has been eating and sleeping well. Nursing notes also indicates that patient has been in good control and generally pleasant on the unit. Observed singing on the unit. Appearance is well -kempt and patient is getting less oddly related as the admission and titration of clozaril progresses. Presently patient denies having any new discomfort or pain. There were no behavioral issues over the weekend. Diagnostic Results: Schizoaffective Disorder Medication Change: No ( ) Medical Record Reviewed: Yes (notes, reports, labs, vitals) Mental Status Examination - Cognitive Function Orientation: Person, Place, Situation Memory: Intact Attention: Poor (some improvement) Concentration: Poor (some improvement) Association: Loose Fund of Knowledge: Poor - Mood Mood: Euphoric - Affect Affect: Constricted (more reactive) - Speech Speech: Pressured (disorganized and overproductive) - Formal Thought Process Formal Thought Process: Hallucinations, Loosening of associations, Circumstantial - Suicidal Ideation Suicidal Ideation: No - Homicidal Ideation Homicidal Ideation: No Goal/Treatment Plan - Goal/Treatment Plan Need for Continued Stay: Remain at risks for inpatient hospitalization, Severe depression anxiety, Discharge may exacerbated symptoms, Failed transitioning, Severe functional impairment Progress Toward Problem(s) and Goals/Treatment Plan: * group, milieu and supportive tx * Titrate clozaril as tolerated. Current dose is 200 mg AM and 300 mg HS-- recently increased on 09/09/16, will increase to 200 mg and 350 mg HS on 09/11/16 * No new labs overnight * Vitals reviewed and noted below: Selected Entries 09/09/16 09/09/16 09/09/16 07:11 09:58 16:14 Temperature 98.0 F Pulse Rate 84 84 98 H Respiratory 20 Rate Blood Pressure 116/80 116/80 132/82 PRIOR FLOOR LABS NOTED BELOW 08/26/16 09:10 Triglycerides 322 H Cholesterol 253 H LDL Cholesterol Direct 178 H ER LABS AND STUDIES NOTED BELOW 08/25/16 17:35: Urine Opiates Screen Negative, Urine Methadone Screen Negative, Ur Barbiturates Screen Negative, Ur Phencyclidine Scrn Negative, Ur Amphetamines Screen Negative, U Benzodiazepines Scrn Negative, U Oth Cocaine Metabols Negative, U Cannabinoids Screen Negative 08/25/16 13:55: WBC 10.2, RBC 4.36, Hgb 12.4, Hct 37.0, MCV 84.9, MCH 28.4, MCHC 33.5, RDW 16.9 H, Plt Count 376, MPV 9.2, Gran % 57.3, Lymph % (Auto) 33.7 , [place] % (Auto) 7.4 H, Eos % (Auto) 1.2 L, Baso % (Auto) 0.4, Gran # 5.85, Lymph # 3.4, [place] # 0.8 H, Eos # 0.1, Baso # 0.04, Sodium 138, Potassium 4.1, Chloride 100, Carbon Dioxide 22, Anion Gap 20, BUN 10, Creatinine 0.5, Est GFR ( Amer) > 60, Est GFR (Non-Af Amer) > 60, Random Glucose 199 H, Calcium 9.7, Total Bilirubin 0.5, AST 28, ALT 31, Alkaline Phosphatase 73, Total Protein 8.2, Albumin 4.2, Globulin 4.0, Albumin/Globulin Ratio 1.1, Urine Color Yellow, Urine Appearance Clear, Urine pH 6.0, Ur Specific [place] >= 1.030, Urine Protein Trace H, Urine Glucose (UA) Negative, Urine Ketones 40 H, Urine Blood Negative, Urine Nitrate Negative, Urine Bilirubin Negative, Urine Urobilinogen 0.2, Ur Leukocyte Esterase Trace H, Urine RBC 0 - 2, Urine WBC 2 - 5, Ur Epithelial Cells 3 - 4, Urine Bacteria Few, Urine HCG, Qual Negative, Salicylates < 1 L, Acetaminophen < 10.0 L, Alcohol, Quantitative < 10 EKG Interpretation EKG shows sinus tachycardia at [address] changes, no interval changes. Estimated Date of D/C: 09/14/16 (will monitor closely)
[2016-09-10] MEDS: Divalproex 500 mg ER (ONCE DAILY formulation) PO SCH (21:32)
--- NOTE | 2016-09-11 08:20 | PCM.PYCHPN ---
Psychiatric Progress Note - Psychiatric Progress Note Patient seen today, length of contact: 25 minutes Patient Chief Complaint: "better" Problems Identified/Issues Discussed: I reviewed recent notes and met with patient at bedside. Patient remains alert, oriented x3, superficially bright and cooperative. Consistently indicates that she is doing better. She denies recurrence of hallucinations or suicidal thoughts. Patient doesn't appear to be actively responding to internal stimuli and she is less internally preoccupied. She is not overtly bizarre. Has been eating and sleeping well. Nursing notes also indicates that patient has been in good control and generally pleasant on the unit. Observed singing on the unit. Appearance is well -kempt and patient is becoming less oddly related as the admission and titration of clozaril progresses. Presently patient denies having any new discomfort or pain. Agrees to further increase in clozaril when I reviewed her medication doses and treatment plan this morning. There were no behavioral issues over the weekend. Diagnostic Results: Schizoaffective Disorder Medication Change: Yes (clozaril increased) Medical Record Reviewed: Yes (notes, reports, labs, vitals) Mental Status Examination - Cognitive Function Orientation: Person ( ), Place, Situation Memory: Intact Attention: Poor (some improvement) Concentration: Poor (some improvement) Association: Loose Fund of Knowledge: Poor - Mood Mood: Euphoric - Affect Affect: Blunted - Speech Speech: Pressured (improving) - Formal Thought Process Formal Thought Process: Hallucinations (denies), Loosening of associations, Circumstantial - Suicidal Ideation Suicidal Ideation: No - Homicidal Ideation Homicidal Ideation: No Goal/Treatment Plan - Goal/Treatment Plan Need for Continued Stay: Remain at risks for inpatient hospitalization, Severe depression anxiety, Discharge may exacerbated symptoms, Failed transitioning, Severe functional impairment Progress Toward Problem(s) and Goals/Treatment Plan: * group, milieu and supportive tx * Titrate clozaril as tolerated. Increased dose to 200 mg and 350 mg HS on 09/11 * No new weekend labs * Vitals reviewed and noted below: Selected Entries 09/11/16 07:26 Temperature 97.9 F Pulse Rate 78 Respiratory 18 Rate Blood Pressure 121/85 PRIOR FLOOR LABS NOTED BELOW 08/26/16 09:10 Triglycerides 322 H Cholesterol 253 H LDL Cholesterol Direct 178 H ER LABS AND STUDIES NOTED BELOW 08/25/16 17:35: Urine Opiates Screen Negative, Urine Methadone Screen Negative, Ur Barbiturates Screen Negative, Ur Phencyclidine Scrn Negative, Ur Amphetamines Screen Negative, U Benzodiazepines Scrn Negative, U Oth Cocaine Metabols Negative, U Cannabinoids Screen Negative 08/25/16 13:55: WBC 10.2, RBC 4.36, Hgb 12.4, Hct 37.0, MCV 84.9, MCH 28.4, MCHC 33.5, RDW 16.9 H, Plt Count 376, MPV 9.2, Gran % 57.3, Lymph % (Auto) 33.7 , [place] % (Auto) 7.4 H, Eos % (Auto) 1.2 L, Baso % (Auto) 0.4, Gran # 5.85, Lymph # 3.4, [place] # 0.8 H, Eos # 0.1, Baso # 0.04, Sodium 138, Potassium 4.1, Chloride 100, Carbon Dioxide 22, Anion Gap 20, BUN 10, Creatinine 0.5, Est GFR ( Amer) > 60, Est GFR (Non-Af Amer) > 60, Random Glucose 199 H, Calcium 9.7, Total Bilirubin 0.5, AST 28, ALT 31, Alkaline Phosphatase 73, Total Protein 8.2, Albumin 4.2, Globulin 4.0, Albumin/Globulin Ratio 1.1, Urine Color Yellow, Urine Appearance Clear, Urine pH 6.0, Ur Specific [place] >= 1.030, Urine Protein Trace H, Urine Glucose (UA) Negative, Urine Ketones 40 H, Urine Blood Negative, Urine Nitrate Negative, Urine Bilirubin Negative, Urine Urobilinogen 0.2, Ur Leukocyte Esterase Trace H, Urine RBC 0 - 2, Urine WBC 2 - 5, Ur Epithelial Cells 3 - 4, Urine Bacteria Few, Urine HCG, Qual Negative, Salicylates < 1 L, Acetaminophen < 10.0 L, Alcohol, Quantitative < 10 EKG Interpretation EKG shows sinus tachycardia at [address] changes, no interval changes. Estimated Date of D/C: 09/14/16 (will monitor closely)
[2016-09-11] MEDS: Iron Complex Polysacch 150mg Cap PO SCH (08:37)
--- NOTE | 2016-09-11 11:36 | PN ---
DATE: 09/11/2016 The patient is seen and examined. Clinically stable. The patient feels much better. No chest pain, no shortness of breath, no nausea, no vomiting. PHYSICAL EXAMINATION: VITAL SIGNS: Blood pressure is 121/854, pulse rate of 78, temperature is 97.9, O2 saturation is 98% on room air. HEENT: Normocephalic, atraumatic. [place] conjunctivae, nonicteric sclerae. NECK: No JVD, no thyromegaly. CARDIOVASCULAR: Regular rate and rhythm. S1, S2 appreciated. LUNGS: Bilateral air entry is positive. No wheezes or rhonchi. ABDOMEN: Nondistended, nontender. Positive bowel sounds. EXTREMITIES: Peripheral pulses +2 with no pitting edema. NEUROLOGIC: No focal neuro deficits at this point. LABORATORIES: Noted on this. ASSESSMENT: Depression, diabetes, hypertension, elevated cholesterol. We will watch the patient very closely. Did renew and reconcile her medications. Will continue the Depakote and will watch this patient very closely. Will continue her metformin as well as her slidin g scale. Ho Moody MD cc: [id number] TT: 09/11/2016 11:36:13 Confirmation # [id number] Dictation # [id number] en
[2016-09-11] MEDS: Divalproex 500 mg ER (ONCE DAILY formulation) PO SCH (22:08)
[2016-09-12 06:44] VITALS: RESP 20
[2016-09-12 07:42] LABS: ADD MANUAL DIFF? NO
[2016-09-12 07:53] LABS: BASO # 0.03 K/mm3 (0.0-2.0); BASO % 0.3 % (0.0-3.0); EOS # 0.2 (0.0-0.7); EOS % 1.7 % (1.5-5.0); GRAN # 4.56 (1.4-6.5); GRAN % 42.1 % (50.0-68.0); HEMATOCRIT 33.2 % (36.0-48.0); LYMPH # 5.1 (1.2-3.4); LYMPH % 46.9 % (22.0-35.0); MEAN CORPUSCULAR HEMOGLOBIN 28.3 pg (25.0-35.0); MEAN PLATELET VOLUME 8.6 fl (7.0-11.0); PLATELET COUNT 344 10^3/uL (120.0-450.0); RED CELL DISTRIBUTION WIDTH 16.8 % (11.5-14.5); WHITE BLOOD COUNT 10.8 10^3/ul (4.5-11.0)
[2016-09-12] MEDS: Iron Complex Polysacch 150mg Cap PO SCH (08:27)
--- NOTE | 2016-09-12 08:56 | PN ---
DATE: 09/12/2016 I saw her resting comfortably in bed in 5B, the psychiatric floor. She tells me she is either going home today or tomorrow. She is on aspirin, Clozaril, Cogentin, Colace, Cozaar, Depakote, iron, Gluco phage, Norvasc, Tylenol and Zetia. She is comfortable in bed. She is eating well, participating in groups, feeling better. PHYSICAL EXAMINATION: VITAL SIGNS: She has a 97.8 temp, 79 pulse, 124/83 blood pressure, 20 respiratory rate. HEAD: Atraumatic, normocephalic. The throat is moist. NECK: Supple. HEART: Regular rate. LUNGS: Clear to auscultation. ABDOMEN: Soft, mildly obese. EXTREMITIES: No edema. Her last lab was on the and she did well. Last blood sugar was 148. Overall, she is doing well . She is here for depression, diabetes, high cholesterol, hypertension and schizophrenia. Will see if she gets discharged as per psychiatry. Jason Contreras DO cc: [id number] TT: 09/12/2016 08:55:34 Confirmation # [id number] Dictation # [id number] donna
--- NOTE | 2016-09-12 13:15 | PCM.PYCHPN ---
Psychiatric Progress Note - Psychiatric Progress Note Patient seen today, length of contact: 30 minutes Patient Chief Complaint: "I knew something was wrong..." Problems Identified/Issues Discussed: Suicide/ homicide prevention, past psychiatric h/o, current psychiatric symptoms , medical problems, risk/benefits and alternatives of medications, medications compliance, coping strategies, substance abuse h/o, relapse prevention, importance of follow up with psychiatrist and therapist, discharge plan. Medical Problems: DM, hyperlipidemia, HTN Diagnostic Results: 08/27/16 07:30 08/27/16 07:30 Lab Results 09/02/16 16:10: POC Glucose (mg/dL) 213 H 09/02/16 12:05: POC Glucose (mg/dL) 228 H 09/02/16 07:19: POC Glucose (mg/dL) 156 H 09/01/16 22:07: POC Glucose (mg/dL) 164 H 09/01/16 16:09: POC Glucose (mg/dL) 137 H 09/01/16 11:36: POC Glucose (mg/dL) 217 H 09/01/16 07:46: POC Glucose (mg/dL) 137 H 08/31/16 21:47: POC Glucose (mg/dL) 140 H 08/31/16 16:05: POC Glucose (mg/dL) 179 H 08/31/16 11:35: POC Glucose (mg/dL) 151 H 08/31/16 07:30: Valproic Acid 63 08/31/16 07:27: POC Glucose (mg/dL) 153 H 08/30/16 21:52: POC Glucose (mg/dL) 210 H 08/30/16 16:16: POC Glucose (mg/dL) 124 H 08/30/16 11:09: POC Glucose (mg/dL) 144 H 08/30/16 07:34: POC Glucose (mg/dL) 147 H 08/29/16 21:53: POC Glucose (mg/dL) 205 H 08/29/16 16:59: POC Glucose (mg/dL) 216 H 08/29/16 11:33: POC Glucose (mg/dL) 143 H 08/29/16 07:35: POC Glucose (mg/dL) 155 H 08/28/16 21:28: POC Glucose (mg/dL) 162 H 08/28/16 16:16: POC Glucose (mg/dL) 160 H 08/28/16 11:13: POC Glucose (mg/dL) 126 H 08/28/16 07:27: POC Glucose (mg/dL) 148 H 08/27/16 21:09: POC Glucose (mg/dL) 209 H 08/27/16 16:26: POC Glucose (mg/dL) 195 H 08/27/16 12:47: POC Glucose (mg/dL) 253 H 08/27/16 07:30: WBC 9.2, RBC 3.96, Hgb 11.1 L, Hct 33.2 L, MCV 83.8, MCH 28.0, MCHC 33.4, RDW 16.7 H, Plt Count 317, MPV 9.2, Sodium 139, Potassium 4.2, Chloride 101, Carbon Dioxide 26, Anion Gap 16, BUN 8, Creatinine 0.4 L, Est GFR ( Amer) > 60, Est GFR (Non-Af Amer) > 60, Random Glucose 150 H, Calcium 9.0, Total Bilirubin 0.3, AST 25, ALT 33, Alkaline Phosphatase 70, Total Protein 7.2, Albumin 3.9, Globulin 3.4, Albumin/Globulin Ratio 1.1, Valproic Acid 18 L 08/27/16 07:18: POC Glucose (mg/dL) 153 H 08/26/16 21:25: POC Glucose (mg/dL) 175 H 08/26/16 16:09: POC Glucose (mg/dL) 177 H 08/26/16 12:07: POC Glucose (mg/dL) 166 H 08/26/16 09:10: Fasting Glucose 247 H, Triglycerides 322 H, Cholesterol 253 H, LDL Cholesterol Direct 178 H, HDL Cholesterol 32 08/26/16 07:37: POC Glucose (mg/dL) 161 H 08/26/16 07:20: Valproic Acid 25 L 08/25/16 21:39: POC Glucose (mg/dL) 206 H 08/25/16 17:35: Urine Opiates Screen Negative, Urine Methadone Screen Negative, Ur Barbiturates Screen Negative, Ur Phencyclidine Scrn Negative, Ur Amphetamines Screen Negative, U Benzodiazepines Scrn Negative, U Oth Cocaine Metabols Negative, U Cannabinoids Screen Negative 08/25/16 13:55: WBC 10.2, RBC 4.36, Hgb 12.4, Hct 37.0, MCV 84.9, MCH 28.4, MCHC 33.5, RDW 16.9 H, Plt Count 376, MPV 9.2, Gran % 57.3, Lymph % (Auto) 33.7 , [place] % (Auto) 7.4 H, Eos % (Auto) 1.2 L, Baso % (Auto) 0.4, Gran # 5.85, Lymph # 3.4, [place] # 0.8 H, Eos # 0.1, Baso # 0.04, Sodium 138, Potassium 4.1, Chloride 100, Carbon Dioxide 22, Anion Gap 20, BUN 10, Creatinine 0.5, Est GFR ( Amer) > 60, Est GFR (Non-Af Amer) > 60, Random Glucose 199 H, Calcium 9.7, Total Bilirubin 0.5, AST 28, ALT 31, Alkaline Phosphatase 73, Total Protein 8.2, Albumin 4.2, Globulin 4.0, Albumin/Globulin Ratio 1.1, Urine Color Yellow, Urine Appearance Clear, Urine pH 6.0, Ur Specific [place] >= 1.030, Urine Protein Trace H, Urine Glucose (UA) Negative, Urine Ketones 40 H, Urine Blood Negative, Urine Nitrate Negative, Urine Bilirubin Negative, Urine Urobilinogen 0.2, Ur Leukocyte Esterase Trace H, Urine RBC 0 - 2, Urine WBC 2 - 5, Ur Epithelial Cells 3 - 4, Urine Bacteria Few, Urine HCG, Qual Negative, Salicylates < 1 L, Acetaminophen < 10.0 L, Alcohol, Quantitative < 10 Vital Signs Temp Pulse Pulse Resp BP Pulse Ox 09/02/16 16:34 91 H 103/64 09/02/16 06:27 98.2 F 81 19 122/84 09/01/16 16:42 91 H 103/67 09/01/16 06:42 98.2 F 78 20 120/78 08/31/16 16:31 100 H 127/90 08/31/16 06:00 98.2 F 80 18 128/94 H 08/30/16 16:37 86 118/76 08/30/16 06:29 98.4 F 75 20 128/87 08/29/16 16:30 92 H 129/84 08/29/16 06:44 97.7 F 75 16 113/78 98 08/28/16 16:00 90 108/70 08/28/16 06:00 97.9 F 89 20 128/84 08/27/16 16:11 82 126/89 08/27/16 06:00 97.9 F 80 18 117/81 08/26/16 16:16 96 H 138/95 H 08/26/16 08:19 97.8 F 78 18 122/77 08/25/16 23:01 95 H 17 08/25/16 19:39 98.6 F 76 20 123/80 99 08/25/16 16:52 66 18 125/64 99 08/25/16 15:30 69 18 128/69 99 08/25/16 14:13 98.2 F 74 18 132/71 99 Temp Pulse Resp BP Pulse Ox 97.9 F 85 22 129/94 H 98 09/05/16 07:14 09/05/16 09:33 09/05/16 07:14 09/05/16 09:33 08/29/16 06:44 Temp Pulse Resp BP Pulse Ox 97.9 F 88 18 125/81 98 09/08/16 06:31 09/08/16 06:31 09/08/16 06:31 09/08/16 06:31 08/29/16 06:44 Temp Pulse Resp BP Pulse Ox 98.0 F 98 H 20 132/82 98 09/09/16 07:11 09/09/16 16:14 09/09/16 07:11 09/09/16 16:14 08/29/16 06:44 DSM 5 Symptoms Update: Patient is a 40 yo AA female, psychiatric history of Schizoaffective Disorder, no drug or alcohol issues, numerous admissions, followed by Elias LARES who presented to our ER reporting symptoms of depression, SI, AH, similar to her multiple other presentations. pt was seen today at the treatment team room, presented to have acceptable personal hygiene, pt is slowly improving, pt is not obsessed with drawing as before. Pt still disorganized, thought process is tangential and circumstantial , a the same time pt is attending groups, pleasant and superficially cooperative. clozaril [facility] labs notified. pt is not at her baseline yet. pt tolerates meds well, no side effects observed or reported. AIMS 0, no EPS. Diagnostic Results: Schizoaffective Disorder Medication Change: Yes (Clozaril increased) Medical Record Reviewed: Yes (notes, reports, labs, vitals) Consults ordered or reviewed: medical consult appreciated see notes for more detailed information Mental Status Examination - Cognitive Function Orientation: Person, Place, Situation Memory: Intact Attention: Poor (some improvement) Concentration: Poor (some improvement) Association: Loose Fund of Knowledge: Poor - Mood Mood: Euphoric - Affect Affect: Constricted (more reactive) - Speech Speech: Pressured (disorganized and overproductive) - Formal Thought Process Formal Thought Process: Hallucinations, Loosening of associations, Circumstantial - Suicidal Ideation Suicidal Ideation: No - Homicidal Ideation Homicidal Ideation: No Goal/Treatment Plan - Goal/Treatment Plan Need for Continued Stay: Remain at risks for inpatient hospitalization, Severe depression anxiety, Discharge may exacerbated symptoms, Failed transitioning, Severe functional impairment Progress Toward Problem(s) and Goals/Treatment Plan: U, structure, supportive therapy this continuity writer called and left a message to the pt's psychiatrist Clozaril 200 mg at the morning time and 300mg at hs, (pt was on 200mg am and 400 mg at the nighttime pt is registered on Clozaril [facility], ANC was filed by this continuity writer 09/07/16 Depakote extended-release 1000 mg at the nighttime for mood stabilization will f/u on levels Haldol decanoate 100 mg IM every monthly last dose was given August 24 Cogentin 1 mg twice a day for EPS medical meds as per medical team SW evaluation d/w RN from PACT team Estimated Date of D/C: 09/14/16 (will monitor closely)
--- NOTE | 2016-09-12 16:28 | PCM.PYCHPN ---
Psychiatric Progress Note - Psychiatric Progress Note Patient seen today, length of contact: 30 minutes Patient Chief Complaint: "I know from the internet" Problems Identified/Issues Discussed: Suicide/ homicide prevention, past psychiatric h/o, current psychiatric symptoms , medical problems, risk/benefits and alternatives of medications, medications compliance, coping strategies, substance abuse h/o, relapse prevention, importance of follow up with psychiatrist and therapist, discharge plan. Medical Problems: DM, hyperlipidemia, HTN Diagnostic Results: 08/27/16 07:30 08/27/16 07:30 Lab Results 09/02/16 16:10: POC Glucose (mg/dL) 213 H 09/02/16 12:05: POC Glucose (mg/dL) 228 H 09/02/16 07:19: POC Glucose (mg/dL) 156 H 09/01/16 22:07: POC Glucose (mg/dL) 164 H 09/01/16 16:09: POC Glucose (mg/dL) 137 H 09/01/16 11:36: POC Glucose (mg/dL) 217 H 09/01/16 07:46: POC Glucose (mg/dL) 137 H 08/31/16 21:47: POC Glucose (mg/dL) 140 H 08/31/16 16:05: POC Glucose (mg/dL) 179 H 08/31/16 11:35: POC Glucose (mg/dL) 151 H 08/31/16 07:30: Valproic Acid 63 08/31/16 07:27: POC Glucose (mg/dL) 153 H 08/30/16 21:52: POC Glucose (mg/dL) 210 H 08/30/16 16:16: POC Glucose (mg/dL) 124 H 08/30/16 11:09: POC Glucose (mg/dL) 144 H 08/30/16 07:34: POC Glucose (mg/dL) 147 H 08/29/16 21:53: POC Glucose (mg/dL) 205 H 08/29/16 16:59: POC Glucose (mg/dL) 216 H 08/29/16 11:33: POC Glucose (mg/dL) 143 H 08/29/16 07:35: POC Glucose (mg/dL) 155 H 08/28/16 21:28: POC Glucose (mg/dL) 162 H 08/28/16 16:16: POC Glucose (mg/dL) 160 H 08/28/16 11:13: POC Glucose (mg/dL) 126 H 08/28/16 07:27: POC Glucose (mg/dL) 148 H 08/27/16 21:09: POC Glucose (mg/dL) 209 H 08/27/16 16:26: POC Glucose (mg/dL) 195 H 08/27/16 12:47: POC Glucose (mg/dL) 253 H 08/27/16 07:30: WBC 9.2, RBC 3.96, Hgb 11.1 L, Hct 33.2 L, MCV 83.8, MCH 28.0, MCHC 33.4, RDW 16.7 H, Plt Count 317, MPV 9.2, Sodium 139, Potassium 4.2, Chloride 101, Carbon Dioxide 26, Anion Gap 16, BUN 8, Creatinine 0.4 L, Est GFR ( Amer) > 60, Est GFR (Non-Af Amer) > 60, Random Glucose 150 H, Calcium 9.0, Total Bilirubin 0.3, AST 25, ALT 33, Alkaline Phosphatase 70, Total Protein 7.2, Albumin 3.9, Globulin 3.4, Albumin/Globulin Ratio 1.1, Valproic Acid 18 L 08/27/16 07:18: POC Glucose (mg/dL) 153 H 08/26/16 21:25: POC Glucose (mg/dL) 175 H 08/26/16 16:09: POC Glucose (mg/dL) 177 H 08/26/16 12:07: POC Glucose (mg/dL) 166 H 08/26/16 09:10: Fasting Glucose 247 H, Triglycerides 322 H, Cholesterol 253 H, LDL Cholesterol Direct 178 H, HDL Cholesterol 32 08/26/16 07:37: POC Glucose (mg/dL) 161 H 08/26/16 07:20: Valproic Acid 25 L 08/25/16 21:39: POC Glucose (mg/dL) 206 H 08/25/16 17:35: Urine Opiates Screen Negative, Urine Methadone Screen Negative, Ur Barbiturates Screen Negative, Ur Phencyclidine Scrn Negative, Ur Amphetamines Screen Negative, U Benzodiazepines Scrn Negative, U Oth Cocaine Metabols Negative, U Cannabinoids Screen Negative 08/25/16 13:55: WBC 10.2, RBC 4.36, Hgb 12.4, Hct 37.0, MCV 84.9, MCH 28.4, MCHC 33.5, RDW 16.9 H, Plt Count 376, MPV 9.2, Gran % 57.3, Lymph % (Auto) 33.7 , [place]ick % (Auto) 7.4 H, Eos % (Auto) 1.2 L, Baso % (Auto) 0.4, Gran # 5.85, Lymph # 3.4, Mccormick # 0.8 H, Eos # 0.1, Baso # 0.04, Sodium 138, Potassium 4.1, Chloride 100, Carbon Dioxide 22, Anion Gap 20, BUN 10, Creatinine 0.5, Est GFR ( Amer) > 60, Est GFR (Non-Af Amer) > 60, Random Glucose 199 H, Calcium 9.7, Total Bilirubin 0.5, AST 28, ALT 31, Alkaline Phosphatase 73, Total Protein 8.2, Albumin 4.2, Globulin 4.0, Albumin/Globulin Ratio 1.1, Urine Color Yellow, Urine Appearance Clear, Urine pH 6.0, Ur Specific [place] >= 1.030, Urine Protein Trace H, Urine Glucose (UA) Negative, Urine Ketones 40 H, Urine Blood Negative, Urine Nitrate Negative, Urine Bilirubin Negative, Urine Urobilinogen 0.2, Ur Leukocyte Esterase Trace H, Urine RBC 0 - 2, Urine WBC 2 - 5, Ur Epithelial Cells 3 - 4, Urine Bacteria Few, Urine HCG, Qual Negative, Salicylates < 1 L, Acetaminophen < 10.0 L, Alcohol, Quantitative < 10 Vital Signs Temp Pulse Pulse Resp BP Pulse Ox 09/02/16 16:34 91 H 103/64 09/02/16 06:27 98.2 F 81 19 122/84 09/01/16 16:42 91 H 103/67 09/01/16 06:42 98.2 F 78 20 120/78 08/31/16 16:31 100 H 127/90 08/31/16 06:00 98.2 F 80 18 128/94 H 08/30/16 16:37 86 118/76 08/30/16 06:29 98.4 F 75 20 128/87 08/29/16 16:30 92 H 129/84 08/29/16 06:44 97.7 F 75 16 113/78 98 08/28/16 16:00 90 108/70 08/28/16 06:00 97.9 F 89 20 128/84 08/27/16 16:11 82 126/89 08/27/16 06:00 97.9 F 80 18 117/81 08/26/16 16:16 96 H 138/95 H 08/26/16 08:19 97.8 F 78 18 122/77 08/25/16 23:01 95 H 17 08/25/16 19:39 98.6 F 76 20 123/80 99 08/25/16 16:52 66 18 125/64 99 08/25/16 15:30 69 18 128/69 99 08/25/16 14:13 98.2 F 74 18 132/71 99 Temp Pulse Resp BP Pulse Ox 97.9 F 85 22 129/94 H 98 09/05/16 07:14 09/05/16 09:33 09/05/16 07:14 09/05/16 09:33 08/29/16 06:44 Temp Pulse Resp BP Pulse Ox 97.9 F 88 18 125/81 98 09/08/16 06:31 09/08/16 06:31 09/08/16 06:31 09/08/16 06:31 08/29/16 06:44 Temp Pulse Resp BP Pulse Ox 98.0 F 98 H 20 132/82 98 09/09/16 07:11 09/09/16 16:14 09/09/16 07:11 09/09/16 16:14 08/29/16 06:44 Laboratory Last Values WBC 10.8 10^3/ul (4.5-11.0) 09/12/16 06:00 RBC 4.00 10^6/uL (3.5-6.1) 09/12/16 06:00 Hgb 11.3 gm/dL (12.0-16.0) L 09/12/16 06:00 Hct 33.2 % (36.0-48.0) L 09/12/16 06:00 MCV 83.0 fL (80.0-105.0) 09/12/16 06:00 MCH 28.3 pg (25.0-35.0) 09/12/16 06:00 MCHC 34.0 g/dl (31.0-37.0) 09/12/16 06:00 RDW 16.8 % (11.5-14.5) H 09/12/16 06:00 Plt Count 344 10^3/uL (120.0-450.0) 09/12/16 06:00 MPV 8.6 fl (7.0-11.0) 09/12/16 06:00 Gran % 42.1 % (50.0-68.0) L 09/12/16 06:00 Lymph % (Auto) 46.9 % (22.0-35.0) H 09/12/16 06:00 Mccormick % (Auto) 9.0 % (1.0-6.0) H 09/12/16 06:00 Eos % (Auto) 1.7 % (1.5-5.0) 09/12/16 06:00 Baso % (Auto) 0.3 % (0.0-3.0) 09/12/16 06:00 Gran # 4.56 (1.4-6.5) 09/12/16 06:00 Lymph # 5.1 (1.2-3.4) H 09/12/16 06:00 M[place]ick # 1.0 (0.1-0.6) H 09/12/16 06:00 Eos # 0.2 (0.0-0.7) 09/12/16 06:00 Baso # 0.03 K/mm3 (0.0-2.0) 09/12/16 06:00 Sodium 139 mmol/L (132-148) 09/09/16 05:30 Potassium 4.3 mmol/L (3.6-5.0) 09/09/16 05:30 Chloride 102 mmol/L (95-110) 09/09/16 05:30 Carbon Dioxide 25 mmol/L (21-33) 09/09/16 05:30 Anion Gap 16 (10-20) 09/09/16 05:30 BUN 10 mg/dL (7-21) 09/09/16 05:30 Creatinine 0.5 mg/dL (0.5-1.4) 09/09/16 05:30 Est GFR ( Amer) > 60 09/09/16 05:30 Est GFR (Non-Af Amer) > 60 09/09/16 05:30 POC Glucose (mg/dL) 148 mg/dL (65-110) H 09/12/16 16:06 Random Glucose 139 mg/dL (70-110) H 09/09/16 05:30 Fasting Glucose 247 mg/dL (65-110) H 08/26/16 09:10 Calcium 9.2 mg/dL (8.4-10.5) 09/09/16 05:30 Total Bilirubin 0.2 mg/dL (0.2-1.3) 09/09/16 05:30 AST 21 U/L (15-39) 09/09/16 05:30 ALT 24 U/L (7-56) 09/09/16 05:30 Alkaline Phosphatase 73 U/L (38-133) 09/09/16 05:30 Total Protein 7.3 g/dL (5.8-8.3) 09/09/16 05:30 Albumin 3.8 g/dL (3.0-4.8) 09/09/16 05:30 Globulin 3.6 gm/dL 09/09/16 05:30 Albumin/Globulin Ratio 1.1 (1.1-1.8) 09/09/16 05:30 Triglycerides 322 mg/dL (35-160) H 08/26/16 09:10 Cholesterol 253 mg/dL (130-200) H 08/26/16 09:10 LDL Cholesterol Direct 178 mg/dL (0-129) H 08/26/16 09:10 HDL Cholesterol 32 mg/dL (29-60) 08/26/16 09:10 Urine Color Yellow (YELLOW) 08/25/16 13:55 Urine Appearance Clear (CLEAR) 08/25/16 13:55 Urine pH 6.0 (4.7-8.0) 08/25/16 13:55 Ur Specific [place] >= 1.030 (1.005-1.035) 08/25/16 13:55 Urine Protein Trace mg/dL (<30 mg/dL) H 08/25/16 13:55 Urine Glucose (UA) Negative mg/dL (NEGATIVE) 08/25/16 13:55 Urine Ketones 40 mg/dL (NEGATIVE) H 08/25/16 13:55 Urine Blood Negative (NEGATIVE) 08/25/16 13:55 Urine Nitrate Negative (NEGATIVE) 08/25/16 13:55 Urine Bilirubin Negative (NEGATIVE) 08/25/16 13:55 Urine Urobilinogen 0.2 E.U./dL (<1 E.U./dL) 08/25/16 13:55 Ur Leukocyte Esterase Trace Uriel/uL (NEGATIVE) H 08/25/16 13:55 Urine RBC 0 - 2 /hpf (0-2) 08/25/16 13:55 Urine WBC 2 - 5 /hpf (0-6) 08/25/16 13:55 Ur Epithelial Cells 3 - 4 /hpf (0-5) 08/25/16 13:55 Urine Bacteria Few (NEG) 08/25/16 13:55 Urine HCG, Qual Negative (NEGATIVE) 08/25/16 13:55 Salicylates < 1 mg/dL (2.0-20.0) L 08/25/16 13:55 Urine Opiates Screen Negative (NEGATIVE) 08/25/16 17:35 Urine Methadone Screen Negative (NEGATIVE) 08/25/16 17:35 Acetaminophen < 10.0 ug/ml (10.0-20.0) L 08/25/16 13:55 Ur Barbiturates Screen Negative (NEGATIVE) 08/25/16 17:35 Valproic Acid 63 ug/mL (50.0-100.0) 08/31/16 07:30 Ur Phencyclidine Scrn Negative (NEGATIVE) 08/25/16 17:35 Ur Amphetamines Screen Negative (NEGATIVE) 08/25/16 17:35 U Benzodiazepines Scrn Negative (NEGATIVE) 08/25/16 17:35 U Oth Cocaine Metabols Negative (NEGATIVE) 08/25/16 17:35 U Cannabinoids Screen Negative (NEGATIVE) 08/25/16 17:35 Alcohol, Quantitative < 10 mg/dL (0-10) 08/25/16 13:55 DSM 5 Symptoms Update: Patient is a 40 yo AA female, psychiatric history of Schizoaffective Disorder, no drug or alcohol issues, numerous admissions, [facility] reporting symptoms of depression, SI, AH, similar to her multiple other presentations. pt was seen today at the TV room, presented to have acceptable personal hygiene , pt is slowly improving, pt is not obsessed with drawing as before. Pt still disorganized, thought process is tangential and circumstantial, a the same time pt is attending groups, pleasant and superficially cooperative. pt was visited by PACT team Lani LI today, pt is improving, but not at her baseline yet. clozaril REMS labs notified. pt tolerates meds well, no side effects observed or reported. AIMS 0, no EPS. as per staff report pt is not obsessed with drawing anymore, just coloring. Diagnostic Results: Schizoaffective Disorder Medication Change: Yes (Clozaril increased) Medical Record Reviewed: Yes (notes, reports, labs, vitals) Consults ordered or reviewed: medical consult appreciated see notes for more detailed information Mental Status Examination - Cognitive Function Orientation: Person, Place, Situation Memory: Intact Attention: Poor (some improvement) Concentration: Poor (some improvement) Association: Loose Fund of Knowledge: Poor - Mood Mood: Euphoric - Affect Affect: Constricted (more reactive) - Speech Speech: Pressured (disorganized and overproductive) - Formal Thought Process Formal Thought Process: Hallucinations, Loosening of associations, Circumstantial - Suicidal Ideation Suicidal Ideation: No - Homicidal Ideation Homicidal Ideation: No Goal/Treatment Plan - Goal/Treatment Plan Need for Continued Stay: Remain at risks for inpatient hospitalization, Severe depression anxiety, Discharge may exacerbated symptoms, Failed transitioning, Severe functional impairment Progress Toward Problem(s) and Goals/Treatment Plan: U, structure, supportive therapy this press writer called and left a message to the pt's psychiatrist Clozaril 200 mg at the morning time and 300mg at hs, (pt was on 200mg am and 400 mg at the nighttime prior this admission pt is registered on Clozaril REMS, ANC was filed by this press writer 09/07/16 Depakote extended-release 1000 mg at the nighttime for mood stabilization will f/u on levels Haldol decanoate 100 mg IM every monthly last dose was given August 24 Cogentin 1 mg twice a day for EPS medical meds as per medical team SW evaluation d/w RN from PACT team, visited pt 09/12/2016 Estimated Date of D/C: 09/14/16 (will monitor closely)
[2016-09-12] MEDS: Divalproex 500 mg ER (ONCE DAILY formulation) PO SCH (21:41)
--- NOTE | 2016-09-13 08:43 | PN ---
DATE: 09/13/2016 I saw the patient resting comfortably in bed this morning on the psychiatric floor. She is trying valentin rd to eat well and participate in group and take her medications, and she tells me she is feeling bet ter. MEDICATIONS: She is on aspirin, Clozaril, Cogentin, Colace, Cozaar, Depakote, iron, Glucophage, Norv asc, Tylenol, and Zetia. PHYSICAL EXAMINATION: VITAL SIGNS: Temp 97.8, 79 pulse, 105/70 blood pressure, 20 respiratory rate. HEENT: Head is atraumatic, normocephalic. HEART: Regular rate. LUNGS: Clear to auscultation with decreased breath sounds. ABDOMEN: Soft, obese, nontender. EXTREMITIES: No edema. LABORATORY DATA: Last labs on 09/12, she has a 10.8 white count, 11.3 hemoglobin, 33.2 hematocrit with 344 platelets. Last blood sugar was 150. She is being seen by psychiatry. She is having multiple issues - depression, schizophrenia, hyperten erick, high cholesterol, diabetes. As per psychiatry, I am continuing to encourage her. Hopefully, s he will improve enough so that she could be discharged. Jason Contreras DO cc: [id number] TT: 09/13/2016 08:43:09 Confirmation # [id number] Dictation # [id number]
[2016-09-13] MEDS: Iron Complex Polysacch 150mg Cap PO SCH (08:52)
--- NOTE | 2016-09-13 15:27 | PCM.PYCHPN ---
Psychiatric Progress Note - Psychiatric Progress Note Patient seen today, length of contact: 30 minutes Patient Chief Complaint: "I feel much better, thank you doctor Zonia..." Problems Identified/Issues Discussed: Suicide/ homicide prevention, past psychiatric h/o, current psychiatric symptoms , medical problems, risk/benefits and alternatives of medications, medications compliance, coping strategies, substance abuse h/o, relapse prevention, importance of follow up with psychiatrist and therapist, discharge plan. Medical Problems: DM, hyperlipidemia, HTN Diagnostic Results: 08/27/16 07:30 08/27/16 07:30 Lab Results 09/02/16 16:10: POC Glucose (mg/dL) 213 H 09/02/16 12:05: POC Glucose (mg/dL) 228 H 09/02/16 07:19: POC Glucose (mg/dL) 156 H 09/01/16 22:07: POC Glucose (mg/dL) 164 H 09/01/16 16:09: POC Glucose (mg/dL) 137 H 09/01/16 11:36: POC Glucose (mg/dL) 217 H 09/01/16 07:46: POC Glucose (mg/dL) 137 H 08/31/16 21:47: POC Glucose (mg/dL) 140 H 08/31/16 16:05: POC Glucose (mg/dL) 179 H 08/31/16 11:35: POC Glucose (mg/dL) 151 H 08/31/16 07:30: Valproic Acid 63 08/31/16 07:27: POC Glucose (mg/dL) 153 H 08/30/16 21:52: POC Glucose (mg/dL) 210 H 08/30/16 16:16: POC Glucose (mg/dL) 124 H 08/30/16 11:09: POC Glucose (mg/dL) 144 H 08/30/16 07:34: POC Glucose (mg/dL) 147 H 08/29/16 21:53: POC Glucose (mg/dL) 205 H 08/29/16 16:59: POC Glucose (mg/dL) 216 H 08/29/16 11:33: POC Glucose (mg/dL) 143 H 08/29/16 07:35: POC Glucose (mg/dL) 155 H 08/28/16 21:28: POC Glucose (mg/dL) 162 H 08/28/16 16:16: POC Glucose (mg/dL) 160 H 08/28/16 11:13: POC Glucose (mg/dL) 126 H 08/28/16 07:27: POC Glucose (mg/dL) 148 H 08/27/16 21:09: POC Glucose (mg/dL) 209 H 08/27/16 16:26: POC Glucose (mg/dL) 195 H 08/27/16 12:47: POC Glucose (mg/dL) 253 H 08/27/16 07:30: WBC 9.2, RBC 3.96, Hgb 11.1 L, Hct 33.2 L, MCV 83.8, MCH 28.0, MCHC 33.4, RDW 16.7 H, Plt Count 317, MPV 9.2, Sodium 139, Potassium 4.2, Chloride 101, Carbon Dioxide 26, Anion Gap 16, BUN 8, Creatinine 0.4 L, Est GFR ( Amer) > 60, Est GFR (Non-Af Amer) > 60, Random Glucose 150 H, Calcium 9.0, Total Bilirubin 0.3, AST 25, ALT 33, Alkaline Phosphatase 70, Total Protein 7.2, Albumin 3.9, Globulin 3.4, Albumin/Globulin Ratio 1.1, Valproic Acid 18 L 08/27/16 07:18: POC Glucose (mg/dL) 153 H 08/26/16 21:25: POC Glucose (mg/dL) 175 H 08/26/16 16:09: POC Glucose (mg/dL) 177 H 08/26/16 12:07: POC Glucose (mg/dL) 166 H 08/26/16 09:10: Fasting Glucose 247 H, Triglycerides 322 H, Cholesterol 253 H, LDL Cholesterol Direct 178 H, HDL Cholesterol 32 08/26/16 07:37: POC Glucose (mg/dL) 161 H 08/26/16 07:20: Valproic Acid 25 L 08/25/16 21:39: POC Glucose (mg/dL) 206 H 08/25/16 17:35: Urine Opiates Screen Negative, Urine Methadone Screen Negative, Ur Barbiturates Screen Negative, Ur Phencyclidine Scrn Negative, Ur Amphetamines Screen Negative, U Benzodiazepines Scrn Negative, U Oth Cocaine Metabols Negative, U Cannabinoids Screen Negative 08/25/16 13:55: WBC 10.2, RBC 4.36, Hgb 12.4, Hct 37.0, MCV 84.9, MCH 28.4, MCHC 33.5, RDW 16.9 H, Plt Count 376, MPV 9.2, Gran % 57.3, Lymph % (Auto) 33.7 , George % (Auto) 7.4 H, Eos % (Auto) 1.2 L, Baso % (Auto) 0.4, Gran # 5.85, Lymph # 3.4, George # 0.8 H, Eos # 0.1, Baso # 0.04, Sodium 138, Potassium 4.1, Chloride 100, Carbon Dioxide 22, Anion Gap 20, BUN 10, Creatinine 0.5, Est GFR ( Amer) > 60, Est GFR (Non-Af Amer) > 60, Random Glucose 199 H, Calcium 9.7, Total Bilirubin 0.5, AST 28, ALT 31, Alkaline Phosphatase 73, Total Protein 8.2, Albumin 4.2, Globulin 4.0, Albumin/Globulin Ratio 1.1, Urine Color Yellow, Urine Appearance Clear, Urine pH 6.0, Ur Specific [place] >= 1.030, Urine Protein Trace H, Urine Glucose (UA) Negative, Urine Ketones 40 H, Urine Blood Negative, Urine Nitrate Negative, Urine Bilirubin Negative, Urine Urobilinogen 0.2, Ur Leukocyte Esterase Trace H, Urine RBC 0 - 2, Urine WBC 2 - 5, Ur Epithelial Cells 3 - 4, Urine Bacteria Few, Urine HCG, Qual Negative, Salicylates < 1 L, Acetaminophen < 10.0 L, Alcohol, Quantitative < 10 Vital Signs Temp Pulse Pulse Resp BP Pulse Ox 09/02/16 16:34 91 H 103/64 09/02/16 06:27 98.2 F 81 19 122/84 09/01/16 16:42 91 H 103/67 09/01/16 06:42 98.2 F 78 20 120/78 08/31/16 16:31 100 H 127/90 08/31/16 06:00 98.2 F 80 18 128/94 H 08/30/16 16:37 86 118/76 08/30/16 06:29 98.4 F 75 20 128/87 08/29/16 16:30 92 H 129/84 08/29/16 06:44 97.7 F 75 16 113/78 98 04/16/17 16:00 90 108/70 08/28/16 06:00 97.9 F 89 20 128/84 08/27/16 16:11 82 126/89 08/27/16 06:00 97.9 F 80 18 117/81 08/26/16 16:16 96 H 138/95 H 08/26/16 08:19 97.8 F 78 18 122/77 08/25/16 23:01 95 H 17 08/25/16 19:39 98.6 F 76 20 123/80 99 08/25/16 16:52 66 18 125/64 99 08/25/16 15:30 69 18 128/69 99 08/25/16 14:13 98.2 F 74 18 132/71 99 Temp Pulse Resp BP Pulse Ox 97.9 F 85 22 129/94 H 98 09/05/16 07:14 09/05/16 09:33 09/05/16 07:14 09/05/16 09:33 08/29/16 06:44 Temp Pulse Resp BP Pulse Ox 97.9 F 88 18 125/81 98 09/08/16 06:31 09/08/16 06:31 09/08/16 06:31 09/08/16 06:31 08/29/16 06:44 Temp Pulse Resp BP Pulse Ox 98.0 F 98 H 20 132/82 98 09/09/16 07:11 09/09/16 16:14 09/09/16 07:11 09/09/16 16:14 08/29/16 06:44 Laboratory Last Values WBC 10.8 10^3/ul (4.5-11.0) 09/12/16 06:00 RBC 4.00 10^6/uL (3.5-6.1) 09/12/16 06:00 Hgb 11.3 gm/dL (12.0-16.0) L 09/12/16 06:00 Hct 33.2 % (36.0-48.0) L 09/12/16 06:00 MCV 83.0 fL (80.0-105.0) 09/12/16 06:00 MCH 28.3 pg (25.0-35.0) 09/12/16 06:00 MCHC 34.0 g/dl (31.0-37.0) 09/12/16 06:00 RDW 16.8 % (11.5-14.5) H 09/12/16 06:00 Plt Count 344 10^3/uL (120.0-450.0) 09/12/16 06:00 MPV 8.6 fl (7.0-11.0) 09/12/16 06:00 Gran % 42.1 % (50.0-68.0) L 09/12/16 06:00 Lymph % (Auto) 46.9 % (22.0-35.0) H 09/12/16 06:00 George % (Auto) 9.0 % (1.0-6.0) H 09/12/16 06:00 Eos % (Auto) 1.7 % (1.5-5.0) 09/12/16 06:00 Baso % (Auto) 0.3 % (0.0-3.0) 09/12/16 06:00 Gran # 4.56 (1.4-6.5) 09/12/16 06:00 Lymph # 5.1 (1.2-3.4) H 09/12/16 06:00 George # 1.0 (0.1-0.6) H 09/12/16 06:00 Eos # 0.2 (0.0-0.7) 09/12/16 06:00 Baso # 0.03 K/mm3 (0.0-2.0) 09/12/16 06:00 Sodium 139 mmol/L (132-148) 09/09/16 05:30 Potassium 4.3 mmol/L (3.6-5.0) 09/09/16 05:30 Chloride 102 mmol/L (95-110) 09/09/16 05:30 Carbon Dioxide 25 mmol/L (21-33) 09/09/16 05:30 Anion Gap 16 (10-20) 09/09/16 05:30 BUN 10 mg/dL (7-21) 09/09/16 05:30 Creatinine 0.5 mg/dL (0.5-1.4) 09/09/16 05:30 Est GFR ( Amer) > 60 09/09/16 05:30 Est GFR (Non-Af Amer) > 60 09/09/16 05:30 POC Glucose (mg/dL) 148 mg/dL (65-110) H 09/12/16 16:06 Random Glucose 139 mg/dL (70-110) H 09/09/16 05:30 Fasting Glucose 247 mg/dL (65-110) H 08/26/16 09:10 Calcium 9.2 mg/dL (8.4-10.5) 09/09/16 05:30 Total Bilirubin 0.2 mg/dL (0.2-1.3) 09/09/16 05:30 AST 21 U/L (15-39) 09/09/16 05:30 ALT 24 U/L (7-56) 09/09/16 05:30 Alkaline Phosphatase 73 U/L (38-133) 09/09/16 05:30 Total Protein 7.3 g/dL (5.8-8.3) 09/09/16 05:30 Albumin 3.8 g/dL (3.0-4.8) 09/09/16 05:30 Globulin 3.6 gm/dL 09/09/16 05:30 Albumin/Globulin Ratio 1.1 (1.1-1.8) 09/09/16 05:30 Triglycerides 322 mg/dL (35-160) H 08/26/16 09:10 Cholesterol 253 mg/dL (130-200) H 08/26/16 09:10 LDL Cholesterol Direct 178 mg/dL (0-129) H 08/26/16 09:10 HDL Cholesterol 32 mg/dL (29-60) 08/26/16 09:10 Urine Color Yellow (YELLOW) 08/25/16 13:55 Urine Appearance Clear (CLEAR) 08/25/16 13:55 Urine pH 6.0 (4.7-8.0) 08/25/16 13:55 Ur Specific [place] >= 1.030 (1.005-1.035) 08/25/16 13:55 Urine Protein Trace mg/dL (<30 mg/dL) H 08/25/16 13:55 Urine Glucose (UA) Negative mg/dL (NEGATIVE) 08/25/16 13:55 Urine Ketones 40 mg/dL (NEGATIVE) H 08/25/16 13:55 Urine Blood Negative (NEGATIVE) 08/25/16 13:55 Urine Nitrate Negative (NEGATIVE) 08/25/16 13:55 Urine Bilirubin Negative (NEGATIVE) 08/25/16 13:55 Urine Urobilinogen 0.2 E.U./dL (<1 E.U./dL) 08/25/16 13:55 Ur Leukocyte Esterase Trace Uriel/uL (NEGATIVE) H 08/25/16 13:55 Urine RBC 0 - 2 /hpf (0-2) 08/25/16 13:55 Urine WBC 2 - 5 /hpf (0-6) 08/25/16 13:55 Ur Epithelial Cells 3 - 4 /hpf (0-5) 08/25/16 13:55 Urine Bacteria Few (NEG) 08/25/16 13:55 Urine HCG, Qual Negative (NEGATIVE) 08/25/16 13:55 Salicylates < 1 mg/dL (2.0-20.0) L 08/25/16 13:55 Urine Opiates Screen Negative (NEGATIVE) 08/25/16 17:35 Urine Methadone Screen Negative (NEGATIVE) 08/25/16 17:35 Acetaminophen < 10.0 ug/ml (10.0-20.0) L 08/25/16 13:55 Ur Barbiturates Screen Negative (NEGATIVE) 08/25/16 17:35 Valproic Acid 63 ug/mL (50.0-100.0) 08/31/16 07:30 Ur Phencyclidine Scrn Negative (NEGATIVE) 08/25/16 17:35 Ur Amphetamines Screen Negative (NEGATIVE) 08/25/16 17:35 U Benzodiazepines Scrn Negative (NEGATIVE) 08/25/16 17:35 U Oth Cocaine Metabols Negative (NEGATIVE) 08/25/16 17:35 U Cannabinoids Screen Negative (NEGATIVE) 08/25/16 17:35 Alcohol, Quantitative < 10 mg/dL (0-10) 08/25/16 13:55 Vital Signs Temp Pulse Pulse Resp BP Pulse Ox 09/13/16 08:53 79 105/70 09/13/16 07:08 97.8 F 79 20 105/70 09/12/16 16:13 94 H 135/91 H 09/12/16 08:27 79 124/83 09/12/16 06:00 97.8 F 79 20 124/83 09/11/16 16:00 102 H 126/81 09/11/16 07:26 97.9 F 78 18 121/85 09/10/16 16:26 90 128/92 H 09/10/16 06:21 98.2 F 90 19 164/91 H 09/09/16 16:14 98 H 132/82 09/09/16 09:58 84 116/80 09/09/16 07:11 98.0 F 84 20 116/80 09/08/16 16:03 84 112/71 09/08/16 06:31 97.9 F 88 18 125/81 09/07/16 16:00 102 H 141/91 H 09/07/16 07:22 97.8 F 81 20 101/65 09/06/16 16:10 96 H 161/108 H 09/06/16 16:08 96 H 161/108 H 09/06/16 06:00 98.4 F 78 20 113/77 09/05/16 16:00 103 H 134/96 H 09/05/16 09:33 85 129/94 H 09/05/16 07:14 97.9 F 85 22 129/94 H 09/04/16 18:09 97 H 138/96 H 09/04/16 06:23 98.2 F 82 19 126/92 H 09/03/16 17:50 97 H 132/91 H 09/03/16 06:00 97.6 F 81 18 114/81 09/02/16 16:34 91 H 103/64 09/02/16 06:27 98.2 F 81 19 122/84 09/01/16 16:42 91 H 103/67 09/01/16 06:42 98.2 F 78 20 120/78 08/31/16 16:31 100 H 127/90 08/31/16 06:00 98.2 F 80 18 128/94 H 08/30/16 16:37 86 118/76 08/30/16 06:29 98.4 F 75 20 128/87 08/29/16 16:30 92 H 129/84 08/29/16 06:44 97.7 F 75 16 113/78 98 08/28/16 16:00 90 108/70 08/28/16 06:00 97.9 F 89 20 128/84 08/27/16 16:11 82 126/89 08/27/16 06:00 97.9 F 80 18 117/81 08/26/16 16:16 96 H 138/95 H 08/26/16 08:19 97.8 F 78 18 122/77 08/25/16 23:01 95 H 17 08/25/16 19:39 98.6 F 76 20 123/80 99 08/25/16 16:52 66 18 125/64 99 08/25/16 15:30 69 18 128/69 99 08/25/16 14:13 98.2 F 74 18 132/71 99 DSM 5 Symptoms Update: Patient is a 40 yo AA female, psychiatric history of Schizoaffective Disorder, no drug or alcohol issues, numerous admissions, [facility] reporting symptoms of depression, SI, AH, similar to her multiple other presentations. pt was seen today at the TV room, presented to have acceptable personal hygiene , pt is slowly improving, pt is not obsessed with drawing as before. Pt still disorganized, pt is closer to her baseline, pt is attending groups, pleasant and cooperative. pt was visited by PACT team Lani LI 09/12/16, pt is improving, pt will be ready for d/c tomorrow. clozaril REMS labs notified. pt tolerates meds well, no side effects observed or reported. AIMS 0, no EPS. as per staff report pt is not obsessed with drawing anymore, just coloring. Diagnostic Results: Schizoaffective Disorder Medication Change: No Medical Record Reviewed: Yes (notes, reports, labs, vitals) Consults ordered or reviewed: medical consult appreciated see notes for more detailed information Mental Status Examination - Cognitive Function Orientation: Person, Place, Situation Memory: Intact Attention: Poor (some improvement) Concentration: Poor (some improvement) Association: Loose Fund of Knowledge: Poor - Mood Mood: Neutral - Affect Affect: Constricted (more reactive) - Speech Speech: Appropriate - Formal Thought Process Formal Thought Process: Hallucinations (denied), Loosening of associations ( cchronic), Circumstantial (chronic) - Suicidal Ideation Suicidal Ideation: No - Homicidal Ideation Homicidal Ideation: No Goal/Treatment Plan - Goal/Treatment Plan Need for Continued Stay: Remain at risks for inpatient hospitalization, Severe depression anxiety, Discharge may exacerbated symptoms, Failed transitioning, Severe functional impairment Progress Toward Problem(s) and Goals/Treatment Plan: U, structure, supportive therapy this fiction writer called and left a message to the pt's psychiatrist Clozaril 200 mg at the morning time and 400mg at hs, (pt was on 200mg am and 400 mg prior to come to the hospital, correction, yesterday note patient was on 200 mg at the morning time in 400 mg at the nighttime yesterday. pt is registered on Clozaril [facility], ANC was filed by this fiction writer 09/07/16 Depakote extended-release 1000 mg at the nighttime for mood stabilization will f/u on levels Haldol decanoate 100 mg IM every monthly last dose was given August 24 Cogentin 1 mg twice a day for EPS medical meds as per medical team SW evaluation d/w RN from PACT team, visited pt 09/12/2016 patient deemed to be ready for being discharged tomorrow on 09/14/2016, PACT team was in agreement with the plan Estimated Date of D/C: 09/14/16 (will monitor closely)
[2016-09-13] MEDS: Divalproex 500 mg ER (ONCE DAILY formulation) PO SCH (21:46)
[2016-09-14 07:28] VITALS: BP 107/75; PULSE 82; TEMP 98.5
--- NOTE | 2016-09-14 08:15 | PN ---
DATE: 09/14/2016 I saw the patient resting in bed in the psych unit. She slept well. She is comfortable. She is par ticipating. She is eating. She is on aspirin, Clozaril, Cogentin, Colace, Cozaar, Depakote, iron, Glucophage, Norvasc, Tylenol a nd Zetia. PHYSICAL EXAMINATION: VITAL SIGNS: Temp 98.5, 82 pulse, 107/75 blood pressure, 20 respiratory rate. HEENT: Head is atraumatic, normocephalic. HEART: Regular rate. LUNGS: Clear to auscultation. ABDOMEN: Soft, obese, nontender. EXTREMITIES: No edema. LABORATORY DATA: Her last labs, she had one on 09/12: 10.8 white count, 11.3 hemoglobin, 32.2 hematoc rit with 344 platelets. Last blood sugar was 150. She tells me again that she is going home today. She said that 4 days in a row. It is up to psychia try and how she is doing. She has improved since she has been here in the psych unit. She has schiz oaffective disorder, depression, hypertension, high cholesterol, diabetes and as per psychiatry, hope fully she will do very well. Jason Contreras DO cc: [id number] TT: 09/14/2016 08:14:29 Confirmation # [id number] Dictation # [id number] tn
[2016-09-14] MEDS: Iron Complex Polysacch 150mg Cap PO SCH (08:33)
--- NOTE | 2016-09-14 14:40 | PCM.PYCHDC ---
Mental Status Examination - Mental Status Examination Orientation: Person, Place, Situation, Time Memory: Intact Mood: Neutral Affect: Broad Speech: Soft Attention: WNL Concentration: WNL Association: WNL Fund of Knowledge: WNL Formal Thought Process: Delusions (hronic delusions, But much improvement) Description of patient's judgement and insight: Pt has improved insight into mental and medical illness, pt was compliant with medications and unit rules and regulations, pt was going to groups, was calm, cooperative, socially appropriate, no behavioral incidents, no agitation, no aggression. Psychotic Thoughts and Behaviors: Pt denied v/a/t hallucinations, denied paranoid ideations, pt does not appear to be psychotic, and thought process is goal directed. Suicidal Ideation: No Current Homicidal Ideation?: No Plan: pt adamantly denied thoughts of harming self or others denied intent or plan. Discharge Summary - Discharge Note Reason for Hospitalization: worsening psychosis, disorganized thoughts and disorganized behavior Psychiatric History (includes Medical, Family, Personal Hx): Multiple admissions to the psychiatric inpatient unit Laboratory Data: Abnormal Lab Results 09/13/16 09/13/16 09/14/16 16:09 21:33 07:28 POC Glucose (mg/dL) 143 H 211 H 150 H 09/14/16 12:01 POC Glucose (mg/dL) 160 H 09/12/16 06:00 09/09/16 05:30 Lab Results 09/14/16 12:01: POC Glucose (mg/dL) 160 H 09/14/16 07:28: POC Glucose (mg/dL) 150 H 09/13/16 21:33: POC Glucose (mg/dL) 211 H 09/13/16 16:09: POC Glucose (mg/dL) 143 H 09/13/16 11:52: POC Glucose (mg/dL) 157 H 09/13/16 07:21: POC Glucose (mg/dL) 150 H 09/12/16 21:51: POC Glucose (mg/dL) 225 H 09/12/16 16:06: POC Glucose (mg/dL) 148 H 09/12/16 11:58: POC Glucose (mg/dL) 161 H 09/12/16 07:32: POC Glucose (mg/dL) 148 H 09/12/16 06:00: WBC 10.8, RBC 4.00, Hgb 11.3 L, Hct 33.2 L, MCV 83.0, MCH 28.3, MCHC 34.0, RDW 16.8 H, Plt Count 344, MPV 8.6, Gran % 42.1 L, Lymph % (Auto) 46.9 H, [place] % (Auto) 9.0 H, Eos % (Auto) 1.7, Baso % (Auto) 0.3, Gran # 4.56, Lymph # 5.1 H, [place] # 1.0 H, Eos # 0.2, Baso # 0.03 09/11/16 21:11: POC Glucose (mg/dL) 230 H 09/11/16 16:06: POC Glucose (mg/dL) 149 H 09/11/16 11:33: POC Glucose (mg/dL) 177 H 09/11/16 07:04: POC Glucose (mg/dL) 142 H 09/10/16 21:17: POC Glucose (mg/dL) 220 H 09/10/16 16:12: POC Glucose (mg/dL) 155 H 09/10/16 12:12: POC Glucose (mg/dL) 175 H 09/10/16 07:03: POC Glucose (mg/dL) 150 H 09/09/16 21:50: POC Glucose (mg/dL) 236 H 09/09/16 15:59: POC Glucose (mg/dL) 164 H 09/09/16 11:00: POC Glucose (mg/dL) 173 H 09/09/16 07:29: POC Glucose (mg/dL) 149 H 09/09/16 05:30: Sodium 139, Potassium 4.3, Chloride 102, Carbon Dioxide 25, Anion Gap 16, BUN 10, Creatinine 0.5, Est GFR ( Amer) > 60, Est GFR (Non- Af Amer) > 60, Random Glucose 139 H, Calcium 9.2, Total Bilirubin 0.2, AST 21, ALT 24, Alkaline Phosphatase 73, Total Protein 7.3, Albumin 3.8, Globulin 3.6, Albumin/Globulin Ratio 1.1 09/09/16 05:30: WBC 9.8, RBC 4.04, Hgb 11.3 L, Hct 33.8 L, MCV 83.7, MCH 28.0, MCHC 33.4, RDW 16.9 H, Plt Count 333, MPV 8.4 09/08/16 21:53: POC Glucose (mg/dL) 298 H 09/08/16 16:04: POC Glucose (mg/dL) 141 H 09/08/16 11:25: POC Glucose (mg/dL) 163 H 09/08/16 07:29: POC Glucose (mg/dL) 144 H 09/07/16 21:09: POC Glucose (mg/dL) 217 H 09/07/16 16:22: POC Glucose (mg/dL) 198 H 09/07/16 11:50: POC Glucose (mg/dL) 145 H 09/07/16 07:11: POC Glucose (mg/dL) 136 H 09/06/16 21:11: POC Glucose (mg/dL) 194 H 09/06/16 16:03: POC Glucose (mg/dL) 136 H 09/06/16 12:08: POC Glucose (mg/dL) 139 H 09/06/16 07:23: POC Glucose (mg/dL) 149 H 09/05/16 21:59: POC Glucose (mg/dL) 254 H 09/05/16 16:02: POC Glucose (mg/dL) 175 H 09/05/16 11:55: POC Glucose (mg/dL) 171 H 09/05/16 07:36: POC Glucose (mg/dL) 164 H 09/04/16 17:08: POC Glucose (mg/dL) 200 H 09/04/16 11:34: POC Glucose (mg/dL) 220 H 09/04/16 07:22: POC Glucose (mg/dL) 157 H 09/03/16 21:46: POC Glucose (mg/dL) 217 H 09/03/16 16:20: POC Glucose (mg/dL) 167 H 09/03/16 11:41: POC Glucose (mg/dL) 188 H 09/03/16 07:13: POC Glucose (mg/dL) 148 H 09/02/16 22:09: POC Glucose (mg/dL) 248 H 09/02/16 16:10: POC Glucose (mg/dL) 213 H 09/02/16 12:05: POC Glucose (mg/dL) 228 H 09/02/16 07:19: POC Glucose (mg/dL) 156 H 09/01/16 22:07: POC Glucose (mg/dL) 164 H 09/01/16 16:09: POC Glucose (mg/dL) 137 H 09/01/16 11:36: POC Glucose (mg/dL) 217 H 09/01/16 07:46: POC Glucose (mg/dL) 137 H 08/31/16 21:47: POC Glucose (mg/dL) 140 H 08/31/16 16:05: POC Glucose (mg/dL) 179 H 08/31/16 11:35: POC Glucose (mg/dL) 151 H 08/31/16 07:30: Valproic Acid 63 08/31/16 07:27: POC Glucose (mg/dL) 153 H 08/30/16 21:52: POC Glucose (mg/dL) 210 H 08/30/16 16:16: POC Glucose (mg/dL) 124 H 08/30/16 11:09: POC Glucose (mg/dL) 144 H 08/30/16 07:34: POC Glucose (mg/dL) 147 H 08/29/16 21:53: POC Glucose (mg/dL) 205 H 08/29/16 16:59: POC Glucose (mg/dL) 216 H 08/29/16 11:33: POC Glucose (mg/dL) 143 H 08/29/16 07:35: POC Glucose (mg/dL) 155 H 08/28/16 21:28: POC Glucose (mg/dL) 162 H 08/28/16 16:16: POC Glucose (mg/dL) 160 H 08/28/16 11:13: POC Glucose (mg/dL) 126 H 08/28/16 07:27: POC Glucose (mg/dL) 148 H 08/27/16 21:09: POC Glucose (mg/dL) 209 H 08/27/16 16:26: POC Glucose (mg/dL) 195 H 08/27/16 12:47: POC Glucose (mg/dL) 253 H 08/27/16 07:30: Valproic Acid 18 L 08/27/16 07:30: Sodium 139, Potassium 4.2, Chloride 101, Carbon Dioxide 26, Anion Gap 16, BUN 8, Creatinine 0.4 L, Est GFR ( Amer) > 60, Est GFR (Non -Af Amer) > 60, Random Glucose 150 H, Calcium 9.0, Total Bilirubin 0.3, AST 25, ALT 33, Alkaline Phosphatase 70, Total Protein 7.2, Albumin 3.9, Globulin 3.4, Albumin/Globulin Ratio 1.1 08/27/16 07:30: WBC 9.2, RBC 3.96, Hgb 11.1 L, Hct 33.2 L, MCV 83.8, MCH 28.0, MCHC 33.4, RDW 16.7 H, Plt Count 317, MPV 9.2 08/27/16 07:18: POC Glucose (mg/dL) 153 H 08/26/16 21:25: POC Glucose (mg/dL) 175 H 08/26/16 16:09: POC Glucose (mg/dL) 177 H 08/26/16 12:07: POC Glucose (mg/dL) 166 H 08/26/16 09:10: Fasting Glucose 247 H, Triglycerides 322 H, Cholesterol 253 H, LDL Cholesterol Direct 178 H, HDL Cholesterol 32 08/26/16 07:37: POC Glucose (mg/dL) 161 H 08/26/16 07:20: Valproic Acid 25 L 08/25/16 21:39: POC Glucose (mg/dL) 206 H 08/25/16 17:35: Urine Opiates Screen Negative, Urine Methadone Screen Negative, Ur Barbiturates Screen Negative, Ur Phencyclidine Scrn Negative, Ur Amphetamines Screen Negative, U Benzodiazepines Scrn Negative, U Oth Cocaine Metabols Negative, U Cannabinoids Screen Negative 08/25/16 13:55: Alcohol, Quantitative < 10 08/25/16 13:55: Salicylates < 1 L, Acetaminophen < 10.0 L 08/25/16 13:55: Sodium 138, Potassium 4.1, Chloride 100, Carbon Dioxide 22, Anion Gap 20, BUN 10, Creatinine 0.5, Est GFR ( Amer) > 60, Est GFR (Non- Af Amer) > 60, Random Glucose 199 H, Calcium 9.7, Total Bilirubin 0.5, AST 28, ALT 31, Alkaline Phosphatase 73, Total Protein 8.2, Albumin 4.2, Globulin 4.0, Albumin/Globulin Ratio 1.1 08/25/16 13:55: Urine Color Yellow, Urine Appearance Clear, Urine pH 6.0, Ur Specific [place] >= 1.030, Urine Protein Trace H, Urine Glucose (UA) Negative, Urine Ketones 40 H, Urine Blood Negative, Urine Nitrate Negative, Urine Bilirubin Negative, Urine Urobilinogen 0.2, Ur Leukocyte Esterase Trace H, Urine RBC 0 - 2, Urine WBC 2 - 5, Ur Epithelial Cells 3 - 4, Urine Bacteria Few , Urine HCG, Qual Negative 08/25/16 13:55: WBC 10.2, RBC 4.36, Hgb 12.4, Hct 37.0, MCV 84.9, MCH 28.4, MCHC 33.5, RDW 16.9 H, Plt Count 376, MPV 9.2, Gran % 57.3, Lymph % (Auto) 33.7 , [place] % (Auto) 7.4 H, Eos % (Auto) 1.2 L, Baso % (Auto) 0.4, Gran # 5.85, Lymph # 3.4, [place] # 0.8 H, Eos # 0.1, Baso # 0.04 Vital Signs Temp Pulse Pulse Resp BP Pulse Ox 09/14/16 08:32 82 107/75 09/14/16 07:27 98.5 F 82 20 107/75 09/13/16 16:00 98 H 128/88 09/13/16 08:53 79 105/70 09/13/16 07:08 97.8 F 79 20 105/70 09/12/16 16:13 94 H 135/91 H 09/12/16 08:27 79 124/83 09/12/16 06:00 97.8 F 79 20 124/83 09/11/16 16:00 102 H 126/81 09/11/16 07:26 97.9 F 78 18 121/85 09/10/16 16:26 90 128/92 H 09/10/16 06:21 98.2 F 90 19 164/91 H 09/09/16 16:14 98 H 132/82 09/09/16 09:58 84 116/80 09/09/16 07:11 98.0 F 84 20 116/80 09/08/16 16:03 84 112/71 09/08/16 06:31 97.9 F 88 18 125/81 09/07/16 16:00 102 H 141/91 H 09/07/16 07:22 97.8 F 81 20 101/65 09/06/16 16:10 96 H 161/108 H 09/06/16 16:08 96 H 161/108 H 09/06/16 06:00 98.4 F 78 20 113/77 09/05/16 16:00 103 H 134/96 H 09/05/16 09:33 85 129/94 H 09/05/16 07:14 97.9 F 85 22 129/94 H 09/04/16 18:09 97 H 138/96 H 09/04/16 06:23 98.2 F 82 19 126/92 H 09/03/16 17:50 97 H 132/91 H 09/03/16 06:00 97.6 F 81 18 114/81 09/02/16 16:34 91 H 103/64 09/02/16 06:27 98.2 F 81 19 122/84 09/01/16 16:42 91 H 103/67 09/01/16 06:42 98.2 F 78 20 120/78 08/31/16 16:31 100 H 127/90 08/31/16 06:00 98.2 F 80 18 128/94 H 08/30/16 16:37 86 118/76 08/30/16 06:29 98.4 F 75 20 128/87 08/29/16 16:30 92 H 129/84 08/29/16 06:44 97.7 F 75 16 113/78 98 08/28/16 16:00 90 108/70 08/28/16 06:00 97.9 F 89 20 128/84 08/27/16 16:11 82 126/89 08/27/16 06:00 97.9 F 80 18 117/81 08/26/16 16:16 96 H 138/95 H 08/26/16 08:19 97.8 F 78 18 122/77 08/25/16 23:01 95 H 17 08/25/16 19:39 98.6 F 76 20 123/80 99 08/25/16 16:52 66 18 125/64 99 08/25/16 15:30 69 18 128/69 99 08/25/16 14:13 98.2 F 74 18 132/71 99 Consultations:: List each consultation separately and include: 1. Reason for request. 2. Findings. 3. Follow-up Consultations: medical consult appreciated see notes for more detailed information Summary of Hospital Course include:: 1. Description of specific treatment plan utilized for patients during their course of treatmen. 2. Summarize the time- course for resolution of acute symptoms and/or regressed behaviors. 3. Describe issues identified and worked on during hospitalization. 4. Describe medication utilized. 5. Describe medical problems identified and treated. 6. Reassessment of suicide risk Summary of Hospital Course: patient was admitted for evaluation and stabilization of disorganized thoughts and disorganized behavior. Patient is on Clozaril, Haldol, 8, patient has long history of mental illness, history of disorganized and psychotic behavior, patient currently under care of packed team. This gag writer was on vacation, patient medications were resumed but with lower doses than usual, this gag writer called PACT team, medications were verified, and adjusted. During this hospitalization patient presented to be more psychotic than usual, patient was obsessed with imaginary Nawaf Alvarez who patient is in love with, patient also had obsessions with drawing all his pictures, with angels. patient was stabilized on the following medications: Clozaril 200 mg at the morning time and 400mg at hs pt is registered on Clozaril [facility], ANC was filed by this gag writer 09/07/16 Depakote extended-release 1000 mg at the nighttime for mood stabilization Depakote level was 63 today 09/14/2016 Haldol decanoate 100 mg IM every monthly last dose was given August 24 Cogentin 1 mg twice a day for EPS patient tolerated medications well, no side effects observed or reported, aims 0 , no EPS. This gag writer had frequent phone conversations with the patient nurse practitioner as well as psychiatrist from the pact team Patient improved significantly, seems to be at her baseline, patient was visited by Patricia LI from the pact team, patient was found to be at her baseline , patient deemed not to be in danger to self and others, deemed to be at her baseline. At the time of discharge patient denied being depressed, denied thoughts of harming herself or others, denied intent or plan, denied hearing voices, denied seeing things, but still has fix falls believes about should Mr. Paige that she is for him. During this hospitalization patient was attending groups, had therapeutic milieu , was seen by medical team. will be following up with PACT team, information about follow up appointment, time and address provided to the pt, it is patient responsibility to follow up with outpatient clinic, PMD as well as specialists (see SW note for more detailed information). In case pt will need to obtain results of studies pending at discharge pt was provided with contact information of Psychiatric Inpatient unit [phone] as well as Medical Record Department [phone]. Nicotine patch was offered pt was provided with prescriptions for all of medications (please see medication reconciliation form) Pt was educated about safety plan in case of worsening of symptoms or in case of suicidal or homicidal ideation call 911 or go to the nearest ER, also was educated to take meds as prescribed and stay away from drugs, pt verbalized understanding. - Diagnosis (1) Schizophrenia, chronic condition with acute exacerbation Status: Acute Priority: High - Final Diagnosis (DSM 5) Condition upon Discharge: STABLE Disposition: HOME/ ROUTINE Follow-up Treatment Plan: will be following up with PACT team, information about follow up appointment, time and address provided to the pt, it is patient responsibility to follow up with outpatient clinic, PMD as well as specialists (see SW note for more detailed information). In case pt will need to obtain results of studies pending at discharge pt was provided with contact information of Psychiatric Inpatient unit [phone] as well as Medical Record Department [phone]. Nicotine patch was offered pt was provided with prescriptions for all of medications (please see medication reconciliation form) Pt was educated about safety plan in case of worsening of symptoms or in case of suicidal or homicidal ideation call 911 or go to the nearest ER, also was educated to take meds as prescribed and stay away from drugs, pt verbalized understanding. Prescriptions/Medication Reconciliation: Haloperidol Decanoate [Haldol Decanoate--long acting] 100 mg IM Q30D #1 amp amLODIPine [Norvasc] 5 mg PO DAILY #7 tab Aspirin [Aspirin Chewable] 81 mg PO DAILY #7 chew Benztropine [Cogentin] 1 mg PO BID #30 tab cloZAPine [Clozaril] 200 mg PO QAM #30 tab cloZAPine [Clozaril] 400 mg PO HS #60 tab Divalproex [Depakote ER(ONCE DAILY)] 1,000 mg PO HS #30 ter Docusate [Colace] 100 mg PO DAILY #7 cap Ezetimibe [Zetia] 10 mg PO DAILY #7 tab Iron Polysaccharide [Ferrex-150] 150 mg PO DAILY #7 cap Losartan [Cozaar] 100 mg PO DAILY #7 tab MetFORMIN [glucoPHAGE] 1,000 mg PO BID #14 tab - Smoking Cessation Smoking Cessation Medication prescribed: No Reason for not providing: patient is not smoking - Antipsychotic Medications Pt discharged on 2 or more routine antipsychotic medications: Yes - Justification for 2 or more meds Failed 3 or more trials of Monotherapy: List medications: patient has long history of mental illness, treatment resistant schizophrenia, patient was on Haldol Decanoate, during this hospitalization Clozaril dose was decreased but patient did not tolerate that well, patient needs to be on 2 antipsychotic medications due to severe at see of her symptoms. Plan to taper monotherapy: List medications: failed Augmentation of Clozapine: Yes (patient is on Clozaril)
== END 2016-09-14 13:56 | disposition home or self-care (01) | DRG 885 ==
LOC: ED 13:39 → ERH 18:47 → PSYC 21:24
PROVIDERS: ADMIT Psychologist; ATTEND Psychiatry & Neurology Psychiatry
PROC: GZ3ZZZZ Medication Management (ICD-10-PCS; principal; 2016-08-26)
DX: F25.9 Schizoaffective disorder, unspecified (principal); F32.9 Major depressive disorder, single episode, unspecified; R45.851 Suicidal ideations; E11.9 Type 2 diabetes mellitus without complications; I10 Essential (primary) hypertension; D64.9 Anemia, unspecified; E78.5 Hyperlipidemia, unspecified; G40.909 Epilepsy, unspecified, not intractable, without status epilepticus; E78.00 Pure hypercholesterolemia, unspecified; Z79.82 Long term (current) use of aspirin; Z79.84 Long term (current) use of oral hypoglycemic drugs; Z81.8 Family history of other mental and behavioral disorders; Z83.3 Family history of diabetes mellitus

== ENCOUNTER 2016-10-24 10:28 | Inpatient (IN) | payer MEDICARE, MEDICAID ==
[2016-10-24 10:28] VITALS: BMI 34.3
[2016-10-24 10:41] VITALS: O2SAT 97
[2016-10-24 11:52] LABS: ADD MANUAL DIFF? NO
[2016-10-24 12:00] LABS: BASO # 0.04 K/mm3 (0.0-2.0); BASO % 0.3 % (0.0-3.0); EOS # 0.2 (0.0-0.7); EOS % 1.2 % (1.5-5.0); GRAN # 8.62 (1.4-6.5); GRAN % 67.6 % (50.0-68.0); HEMATOCRIT 36.5 % (36.0-48.0); LYMPH # 3.3 (1.2-3.4); LYMPH % 25.6 % (22.0-35.0); MEAN CELL VOLUME 85.1 fL (80.0-105.0); MEAN CORPUSCULAR HEMOGLOBIN 29.1 pg (25.0-35.0); MEAN CORPUSCULAR HGB CONC 34.2 g/dl (31.0-37.0); MEAN PLATELET VOLUME 8.5 fl (7.0-11.0); MONO # 0.7 (0.1-0.6); MONO % 5.3 % (1.0-6.0); PLATELET COUNT 317 10^3/uL (120.0-450.0); RED CELL DISTRIBUTION WIDTH 15.9 % (11.5-14.5); WHITE BLOOD COUNT 12.8 10^3/ul (4.5-11.0)
[2016-10-24 12:16] LABS: ALB/GLOB RATIO 1.1 (1.1-1.8); ALKALINE PHOSPHATASE 101 U/L (38-133); ALT/SGPT 38 U/L (7-56); AST/SGOT 29 U/L (15-39); BILIRUBIN,TOTAL 0.4 mg/dL (0.2-1.3); BLOOD UREA NITROGEN 10 mg/dL (7-21); CALCIUM 10.1 mg/dL (8.4-10.5); CARBON DIOXIDE 22 mmol/L (21-33); CHLORIDE 102 mmol/L (98-107); GFR AFRICAN-AMERICAN > 60; GLUCOSE,RANDOM 133 mg/dL (70-110); POTASSIUM 3.8 mmol/L (3.6-5.0); SODIUM 136 mmol/L (132-148); TOTAL PROTEIN 7.9 g/dL (5.8-8.3)
[2016-10-24 12:58] LABS: URINE BILIRUBIN NEGATIVE (NEGATIVE); URINE BLOOD TRACE-INTACT (NEGATIVE); URINE GLUCOSE (UA) NEGATIVE (NEGATIVE); URINE KETONE 15 mg/dL (NEGATIVE); URINE LEUKOCYTE ESTERASE SMALL Leu/uL (NEGATIVE); URINE PROTEIN NEGATIVE mg/dL (<30 mg/dL); URINE UROBILINOGEN 0.2 E.U./dL (<1 E.U./dL)
[2016-10-24 13:03] LABS: URINE APPEARANCE CLEAR (CLEAR); URINE COLOR YELLOW (YELLOW)
[2016-10-24 13:08] LABS: URINE RBC 0 - 2 /hpf (0-2)
[2016-10-24 13:09] LABS: URINE BACTERIA FEW (NEG)
--- NOTE | 2016-10-24 13:34 | ED PDOC ---
Arrival/HPI - General Historian: Patient - General Chief Complaint: Psychiatric Evaluation Time Seen by Provider: 10/24/16 11:19 - History of Present Illness Narrative History of Present Illness (Text): 10/24/16 13:31 Patient with past medical history of diabetes, schizophrenia, bipolar disorder, anemia, and depression, presents via EMS for psychiatric evaluation for SI that began this morning after eating breakfast. Patient reports the following associated symptoms difficulty seleeping x 5 days. Other psychiatric symptoms: ( -) hallucinations, (-) homicidal ideation. Otherwise: (-) trauma, (-) fever, (-) headache, (-) dyspnea, (-) vomiting, (-) substance abuse, (+) patient intent of initiating a suicide attempt, (+) plan - cutting her wrist with a knife. PMD Wassef (Hipolito VSAQUEZ,Adenike Swain) Past Medical History - Provider Review Nursing Documentation Reviewed: Yes - Past History Past History: Non-Contributing - Infectious Disease Hx of Infectious Diseases: None - Tetanus Immunization Tetanus Immunization: Unknown - Cardiac Hx Cardiac Disorders: No Hx Hypertension: Yes - Pulmonary Hx Tuberculosis: No - Neurological HX Cerebrovascular Accident: No Hx Seizures: Yes (age 14) - HEENT Hx HEENT Disorder: No - Renal Hx Renal Disorder: No - Endocrine/Metabolic Hx Endocrine Disorders: Yes Hx Diabetes Mellitus Type 2: Yes - Hematological/Oncological Hx Cancer: No - Integumentary Hx Dermatological Disorder: No - Musculoskeletal/Rheumatological Hx Musculoskeletal Disorders: No Hx Falls: No - Gastrointestinal Hx Gastrointestinal Disorders: No - Genitourinary/Gynecological Hx Sexually Transmitted Diseases: No - Psychiatric Hx Bipolar Disorder: Yes Hx Depression: Yes Hx Schizophrenia: Yes Hx Substance Use: No - Anesthesia Hx Anesthesia: No - Suicidal Assessment Feels Threatened In Home Enviroment: No Family/Social History - Physician Review Nursing Documentation Reviewed: Yes Family/Social History: No Known Family HX Smoking Status: Light Smoker < 10 Cigarettes Daily Hx Alcohol Use: No Hx Substance Use: No Hx Substance Use Treatment: No Allergies/Home Meds Allergies/Adverse Reactions: Allergies No Known Allergies Allergy (Verified 10/24/16 10:41) Review of Systems - Review of Systems Constitutional: Normal. absent: Fatigue, Weight Change, Fevers Respiratory: Normal. absent: SOB, Cough, Sputum Cardiovascular: Normal. absent: Chest Pain, Palpitations, Edema Gastrointestinal: Normal. absent: Abdominal Pain, Stool Changes, Vomiting, Appetite Changes Musculoskeletal: Normal. absent: Arthralgias, Back Pain, Neck Pain Skin: Normal. absent: Rash, Pruritis, Skin Lesions Neurological: Normal. absent: Headache, Dizziness, Focal Weakness Psychiatric: Normal, Depression, Suicidal Ideation. absent: Anxiety Physical Exam - Physical Exam Narrative Physical Exam (Text): 10/24/16 13:33 GENERAL APPEARANCE: Patient is awake, alert, oriented x 3, in no acute distress. SKIN: Warm, dry; (-) cyanosis. HEAD: (-) scalp swelling, (-) scalp tenderness. EYES: (-) conjunctival pallor, (-) scleral icterus, (-) nystagmus. ENMT: Mucous membranes moist. Airway patent: (-) stridor. NECK: (-) tenderness, (-) stiffness, (-) lymphadenopathy. CHEST AND RESPIRATORY: (-) rales, (-) rhonchi, (-) wheezes; breath sounds equal. ABDOMEN: Soft, (-) distention, (-) tenderness, (-) guarding. NEURO AND PSYCH: Mental status as above. Affect: flat. Memory: Intact. chief technician: Pupils equal and reactive; EOMI; (-) facial asymmetry; tongue and uvula midline. Strength and DTRs symmetric. (Hipolito VASQUEZ,Adenike Swain) Vital Signs Temp Pulse Resp BP Pulse Ox 10/24/16 10:38 98.3 F 110 H 18 126/87 97 Medical Decision Making - Lab Interpretations I have reviewed the lab results: Yes (Pt noted to have a UTI, given macrobid po. ) ED Course and Treatment: I was available for consultation during PA evaluation. The chart was reviewed by me, and I agree with disposition. The documented history was done by the physician ballistics expert forensic. The documented physical exam was done by the physician ballistics expert forensic. The documented procedures were done by the physician ballistics expert forensic. (Fahad Russell) 10/24/16 13:34 40 yo F past medical history of diabetes, schizophrenia, bipolar disorder, anemia, and depression, presents for SI. Plan: -- Labs -- Urinalysis -- EKG -- CXR -- Reassess and disposition -- PES evaluation 10/24/16 16:00 EKG and CXR refused by the patient. Labs reviewed, patient noted to have a UTI, given macrobid po. Otherwise the patient is medically cleared for PES evaluation. Patient seen and evaluated by PES and their determination is that the patient requires inpatient psychiatric treatment. (Hipolito VASQUEZ,Adenike Swain) - Lab Interpretations Lab Results: 10/24/16 11:40 10/24/16 11:40 Lab Results 10/24/16 12:17: Urine Opiates Screen Negative, Urine Methadone Screen Negative, Ur Barbiturates Screen Negative, Ur Phencyclidine Scrn Negative, Ur Amphetamines Screen Negative, U Benzodiazepines Scrn Negative, U Oth Cocaine Metabols Negative, U Cannabinoids Screen Negative 10/24/16 12:17: Urine Color Yellow, Urine Appearance Clear, Urine pH 7.0, Ur Specific [place] 1.010, Urine Protein Negative, Urine Glucose (UA) Negative, Urine Ketones 15 H, Urine Blood Trace-intact H, Urine Nitrate Negative, Urine Bilirubin Negative, Urine Urobilinogen 0.2, Ur Leukocyte Esterase Small H, Urine RBC 0 - 2, Urine WBC 1 - 3, Ur Epithelial Cells 4 - 5, Urine Bacteria Few 10/24/16 11:40: Alcohol, Quantitative < 10 10/24/16 11:40: Salicylates < 1 L, Acetaminophen < 10.0 L 10/24/16 11:40: Sodium 136, Potassium 3.8, Chloride 102, Carbon Dioxide 22, Anion Gap 16, BUN 10, Creatinine 0.5, Est GFR ( Amer) > 60, Est GFR (Non- Af Amer) > 60, Random Glucose 133 H, Calcium 10.1, Total Bilirubin 0.4, AST 29, ALT 38, Alkaline Phosphatase 101, Total Protein 7.9, Albumin 4.2, Globulin 3.7, Albumin/Globulin Ratio 1.1 10/24/16 11:40: WBC 12.8 H, RBC 4.29, Hgb 12.5, Hct 36.5, MCV 85.1, MCH 29.1, MCHC 34.2, RDW 15.9 H, Plt Count 317, MPV 8.5, Gran % 67.6, Lymph % (Auto) 25.6 , [place] % (Auto) 5.3, Eos % (Auto) 1.2 L, Baso % (Auto) 0.3, Gran # 8.62 H, Lymph # 3.3, [place] # 0.7 H, Eos # 0.2, Baso # 0.04 10/24/16 11:28: POC Glucose (mg/dL) 145 H - RAD Interpretation Radiology Orders: 10/24/16 11:50 CHEST PORTABLE [RAD] Stat - Medication Orders Current Medication Orders: Discontinued Medications Nitrofurantoin Macrocrystals (Macrobid) 100 mg PO ONCE ONE Stop: 10/24/16 13:17 Last Admin: 10/24/16 15:46 Dose: 100 mg - PA / TRANSITIONS MANAGER / Resident Statement /DO has reviewed & agrees with the documentation as recorded. Disposition/Present on Arrival - Present on Arrival Any Indicators Present on Arrival: No History of DVT/PE: No History of Uncontrolled Diabetes: No Urinary Catheter: No History of Decub. Ulcer: No History Surgical Site Infection Following: None - Disposition Have Diagnosis and Disposition been Completed?: Yes Disposition Time: 16:00 Patient Plan: Admission (to psych) - Disposition Diagnosis: UTI (urinary tract infection), Suicidal ideation, Suicidal intent Disposition: HOSPITALIZED Condition: STABLE Referrals: Lucía Mathis MD [Primary Care Provider] - Follow up with primary
--- NOTE | 2016-10-24 20:34 | CARD ---
APPROVED REPORT EKG Measurement Heart [id number] <Conclusion> Sinus tachycardia Possible Left atrial enlargement T wave abnormality, consider lateral ischemia Abnormal ECG
[2016-10-24] MEDS ORDERED: Magnesium Hydroxide Susp 30 ml UD PO PRN (20:58)
[2016-10-24] MEDS ORDERED: Alum-Mag Hydrox-Simethicone Susp (30 mL) PO PRN (20:58)
[2016-10-25 08:06] LABS: CHOLESTEROL 173 mg/dL (130-200)
--- NOTE | 2016-10-25 12:15 | CON ---
DATE: 10/25/2016 HISTORY OF PRESENT ILLNESS: I have known patient for a while now, been seeing her on the psychiatric floor. She now comes in being depressed, not sleeping for about 5 days, suicidal with a plan to cut ting herself with a knife. PAST MEDICAL HISTORY: Schizophrenia, diabetes, bipolar, anemia, depression, high cholesterol, she di d suicide attempts in the past, depression, hypertension, seizures from age 14, diabetes, depression, schizophrenia. FAMILY HISTORY: No known family history. SOCIAL HISTORY: She is still smoking cigarettes. No alcohol. No drugs. ALLERGIES: No known drug allergies. REVIEW OF SYSTEMS: No acute vision changes or hearing changes, no shortness of breath, no chest pain , no abdominal pain, no change in bowels, no arm or leg pains. No rashes. No headaches, no dizzines s. She is depressed. She is suicidal. Not that anxious. PHYSICAL EXAMINATION: VITAL SIGNS: She has a 98.3 temp, 110 pulse, down to 98 pulse, 18 respiratory rate, 126/87 blood pre ssure, 97% O2 sat. HEENT: Head is atraumatic, normocephalic. Extraocular muscles are intact. Throat is moist. NECK: Supple. Thyroid midline. No palpable appreciative lymphadenopathy. HEART: Regular rate. LUNGS: Decreased breath sounds but clear to auscultation. ABDOMEN: Soft, nontender, positive bowel sounds. Mildly obese. EXTREMITIES: No edema. NEUROLOGIC: She is alert. She has a very flat affect today. Cranial nerves II-XII grossly intact. She can move all 4 extremities. She smiles. She can stick out her tongue midline. No acute neurol ogical issues at this time. LABORATORY DATA: She has had a negative urine drug screen. Urine is small leukocytes. Sodium 136, p otassium 3.8, BUN 10, creatinine 0.5, GFR is greater than 60. Sugars are 145, 133, 170 and 188. Victor Hugo cium is 10.1, total bili is 0.4, AST is 29, ALT is 38, alkaline phosphatase 101, total protein 7.9, a lbumin is 4.2, globulin 3.7. White count is high at 12.8. We will keep an eye on that and repeat it tomorrow. Could be stress. If it is again high tomorrow, I will discuss the antibiotics. We will watch her for 24 more hours. Hemoglobin 12.5, hematocrit 36.5, platelets of 317. She had an EKG, wh ich showed sinus tachycardia, possible left atrial enlargement, consider lateral ischemia. She is here for suicidal attempt, depression, hypertension, diabetes, high cholesterol, leukocytosis. She is a smoker. She has schizophrenia history. I will follow along. Went over her medications. Will check her labs tomorrow. I will discuss this with the nurse and the patient at length. We caren l continue with aggressive treatment and care. Thank you for letting me participate in her care. Jason Contreras DO cc: [id number] TT: 10/25/2016 12:14:50 Confirmation # [id number] Dictation # [id number] thad
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
--- NOTE | 2016-10-26 08:14 | PN ---
DATE: 10/26/2016 I saw the patient resting comfortably in bed on the psychiatric floor. She slept well. She tells me she is feeling a little bit better. She is eating okay. She is walking okay. She is participating in groups. MEDICATIONS: She is on aspirin, Clozaril, Cogentin, Colace, Cozaar, Feosol, Glucophage, Maalox, milk of magnesia, Norvasc, Tylenol, and Zetia. She was here for suicidal thoughts, depression, hypertension, diabetes, high cholesterol and leukocyt osis. PHYSICAL EXAMINATION: VITAL SIGNS: 98 temp, 94 pulse, 126/86 blood pressure, 20 respiratory rate. HEENT: Head is atraumatic, normocephalic. HEART: Regular rate. LUNGS: Clear to auscultation. ABDOMEN: Soft. EXTREMITIES: No edema. Waiting for the labs to populate today. The last blood sugar was 179. TSH was 1.31. RPR was nonre active. I am curious about the white count. I will check that later. I encouraged her to take the medications, participate in groups, eat and I will continue to follow. Jason Contreras DO cc: [id number] TT: 10/26/2016 08:13:50 Confirmation # [id number] Dictation # [id number] tn
[2016-10-26 08:23] LABS: HEMATOCRIT 34.8 % (36.0-48.0); MEAN CELL VOLUME 85.1 fL (80.0-105.0); MEAN CORPUSCULAR HEMOGLOBIN 28.9 pg (25.0-35.0); MEAN CORPUSCULAR HGB CONC 33.9 g/dl (31.0-37.0); MEAN PLATELET VOLUME 8.4 fl (7.0-11.0); RED CELL DISTRIBUTION WIDTH 15.4 % (11.5-14.5); WHITE BLOOD COUNT 9.6 10^3/ul (4.5-11.0)
[2016-10-26 08:31] LABS: ALB/GLOB RATIO 1.2 (1.1-1.8); ALKALINE PHOSPHATASE 83 U/L (38-133); ALT/SGPT 35 U/L (7-56); AST/SGOT 21 U/L (15-39); BILIRUBIN,TOTAL 0.3 mg/dL (0.2-1.3); BLOOD UREA NITROGEN 4 mg/dL (7-21); CALCIUM 8.7 mg/dL (8.4-10.5); CARBON DIOXIDE 24 mmol/L (21-33); CHLORIDE 101 mmol/L (95-110); GFR AFRICAN-AMERICAN > 60; GLUCOSE,RANDOM 167 mg/dL (70-110); SODIUM 137 mmol/L (132-148); TOTAL PROTEIN 7.3 g/dL (5.8-8.3)
--- NOTE | 2016-10-26 17:10 | PCM.PYCHPN ---
Psychiatric Progress Note - Psychiatric Progress Note Patient seen today, length of contact: 30min Patient Chief Complaint: "I was severely depressed.. I don't know what happened" Problems Identified/Issues Discussed: Suicide/ homicide prevention, past psychiatric h/o, current psychiatric symptoms , medical problems, risk/benefits and alternatives of medications, medications compliance, coping strategies, substance abuse h/o, relapse prevention, importance of follow up with psychiatrist and therapist, discharge plan. Medical Problems: HTN, diabetis, dyslipidemia Diagnostic Results: 10/26/16 07:30 10/26/16 07:30 Lab Results 10/26/16 11:15: POC Glucose (mg/dL) 183 H 10/26/16 07:30: Sodium 137, Potassium 4.0, Chloride 101, Carbon Dioxide 24, Anion Gap 16, BUN 4 L, Creatinine 0.4 L, Est GFR ( Amer) > 60, Est GFR ( Non-Af Amer) > 60, Random Glucose 167 H, Calcium 8.7, Total Bilirubin 0.3, AST 21, ALT 35, Alkaline Phosphatase 83, Total Protein 7.3, Albumin 4.0, Globulin 3.3, Albumin/Globulin Ratio 1.2 10/26/16 07:30: WBC 9.6 D, RBC 4.09, Hgb 11.8 L, Hct 34.8 L, MCV 85.1, MCH 28.9 , MCHC 33.9, RDW 15.4 H, Plt Count 292, MPV 8.4 10/26/16 07:12: POC Glucose (mg/dL) 179 H 10/25/16 21:28: POC Glucose (mg/dL) 265 H 10/25/16 16:14: POC Glucose (mg/dL) 168 H 10/25/16 11:29: POC Glucose (mg/dL) 232 H 10/25/16 07:25: POC Glucose (mg/dL) 170 H 10/25/16 07:00: Fasting Glucose 149 H 10/25/16 07:00: RPR Nonreactive 10/25/16 07:00: TSH 3rd Generation 1.31 10/25/16 07:00: Triglycerides 169 H, Cholesterol 173, LDL Cholesterol Direct 115 , HDL Cholesterol 25 L 10/24/16 21:53: POC Glucose (mg/dL) 188 H 10/24/16 12:17: Urine Opiates Screen Negative, Urine Methadone Screen Negative, Ur Barbiturates Screen Negative, Ur Phencyclidine Scrn Negative, Ur Amphetamines Screen Negative, U Benzodiazepines Scrn Negative, U Oth Cocaine Metabols Negative, U Cannabinoids Screen Negative 10/24/16 12:17: Urine Color Yellow, Urine Appearance Clear, Urine pH 7.0, Ur Specific [place] 1.010, Urine Protein Negative, Urine Glucose (UA) Negative, Urine Ketones 15 H, Urine Blood Trace-intact H, Urine Nitrate Negative, Urine Bilirubin Negative, Urine Urobilinogen 0.2, Ur Leukocyte Esterase Small H, Urine RBC 0 - 2, Urine WBC 1 - 3, Ur Epithelial Cells 4 - 5, Urine Bacteria Few 10/24/16 11:40: Alcohol, Quantitative < 10 10/24/16 11:40: Salicylates < 1 L, Acetaminophen < 10.0 L 10/24/16 11:40: Sodium 136, Potassium 3.8, Chloride 102, Carbon Dioxide 22, Anion Gap 16, BUN 10, Creatinine 0.5, Est GFR ( Amer) > 60, Est GFR (Non- Af Amer) > 60, Random Glucose 133 H, Calcium 10.1, Total Bilirubin 0.4, AST 29, ALT 38, Alkaline Phosphatase 101, Total Protein 7.9, Albumin 4.2, Globulin 3.7, Albumin/Globulin Ratio 1.1 10/24/16 11:40: WBC 12.8 H, RBC 4.29, Hgb 12.5, Hct 36.5, MCV 85.1, MCH 29.1, MCHC 34.2, RDW 15.9 H, Plt Count 317, MPV 8.5, Gran % 67.6, Lymph % (Auto) 25.6 , [place] % (Auto) 5.3, Eos % (Auto) 1.2 L, Baso % (Auto) 0.3, Gran # 8.62 H, Lymph # 3.3, [place] # 0.7 H, Eos # 0.2, Baso # 0.04 10/24/16 11:28: POC Glucose (mg/dL) 145 H Vital Signs Temp Pulse Resp BP Pulse Ox 10/26/16 16:13 104 H 133/88 10/26/16 08:34 126/86 10/26/16 07:42 98.0 F 94 H 20 126/86 10/25/16 19:17 97.2 F L 10/25/16 16:00 90 122/80 10/25/16 08:34 116/83 10/25/16 07:24 97.8 F 79 20 116/83 10/24/16 17:03 98.6 F 99 H 17 147/88 97 10/24/16 10:38 98.3 F 110 H 18 126/87 97 DSM 5 Symptoms Update: shortly patient is 40 years old -[place] female, long and debilitating history of schizophrenia, treatment resistant, multiple admissions to the psychiatric inpatient unit in the past, including to this hospital, for this year only it is the fourth admission to the [facility], most recent was less than two weeks ago at [facility], [facility], pt is on clozaril and Haldol Dec. PACT team SW evaluated pt at the ED , still pt was not able to contract for safety. She was seen and examined at the tx team room, presented to have fair personal hygiene, good ADLs, pt was sleepy, yes or no answers only. affect is flat. pt said "I didn't feel well, I wanted to ", pt denied any stress, denied any reasons to feel this way. this video games storywriter spoke to the RN at PACT team, suggested for the pt to go [place] because of her frequent hospitalizations, will consider to call screeners. pt was educated about this plan pt said "I am fine with that but I don't want to lose my housing..." pt is very superficial, poor and unreliable historian. pt said she is in the relationship with Mr. Alvarez (delusions, started drawing him again). labs submitted to the Clozaril [facility] Impression: schizoaffective disorder Medication Change: No (continued) Medical Record Reviewed: Yes Consults ordered or reviewed: medical consult appreciated Mental Status Examination - Cognitive Function Orientation: Person Memory: Impaired Attention: Poor Concentration: Poor Association: Loose Fund of Knowledge: Poor - Mood Mood: Depressed - Affect Affect: Flat - Formal Thought Process Formal Thought Process: Delusions - Suicidal Ideation Suicidal Ideation: No - Homicidal Ideation Homicidal Ideation: No Goal/Treatment Plan - Goal/Treatment Plan Need for Continued Stay: Remain at risks for inpatient hospitalization, Severe depression anxiety, Discharge may exacerbated symptoms, Failed transitioning, Severe functional impairment Progress Toward Problem(s) and Goals/Treatment Plan: milieu, structure, supportive therapy All medications will be resumed Medical consult appreciated Collateral information appreciated We'll monitor closely PACT team suggested [place] screening because of frequent admissions to the psych unit (this year it is the fourth one) Estimated Date of D/C: 11/04/16 (will monitor closely)
--- NOTE | 2016-10-27 09:53 | PN ---
DATE: 10/27/2016 I saw the patient resting comfortably in bed. She slept very well. She is very tired this morning. She had no complaints, no problems. She is feeling better and taking her medications. She says she is eating and trying to participate in groups. MEDICATIONS: She is on aspirin, Clozaril, Cogentin, Colace, Cozaar, Feosol, Glucophage, Maalox, mil k of magnesia, Norvasc, Tylenol, and Zetia. PHYSICAL EXAMINATION: VITAL SIGNS: Temp 97.8, 86 pulse, 106/67 blood pressure, 20 respiratory rate. HEAD: Atraumatic, normocephalic. HEART: Regular rate. LUNGS: Clear to auscultation. ABDOMEN: Soft. EXTREMITIES: No edema. LABORATORY DATA: She has a 9.6 white count, 11.8 hemoglobin, 34.8 hematocrit with 292 platelets. So dium 137. Potassium is 4. BUN 4, creatinine 0.4. GFR is greater than 60. Last blood sugar was 162 . Calcium is 8.7. Total bili is 0.3. AST is 21. ALT is 35. Alk is 83. Total protein 7.3. Album in is 4, globulin 3.3. Urine was small. Drug screen was negative. RPR was fine. She is here for a few reasons - suicidal, depression, hypertension, diabetes, high cholesterol, leuko cytosis, which resolved, and she is a smoker. We will continue with aggressive treatment and care, a s per psychiatry. Change the treatment as per psychiatry, and continue with aggressive treatment and care, and encouragement. We will follow. Jason Contreras DO cc: [id number] TT: 10/27/2016 09:52:47 Confirmation # [id number] Dictation # [id number] krish
--- NOTE | 2016-10-27 15:43 | PCM.PYCHPN ---
Psychiatric Progress Note - Psychiatric Progress Note Patient seen today, length of contact: 30min Patient Chief Complaint: "I was severely depressed.. I don't know what happened" Problems Identified/Issues Discussed: Suicide/ homicide prevention, past psychiatric h/o, current psychiatric symptoms , medical problems, risk/benefits and alternatives of medications, medications compliance, coping strategies, substance abuse h/o, relapse prevention, importance of follow up with psychiatrist and therapist, discharge plan. Medical Problems: HTN, diabetis, dyslipidemia Diagnostic Results: 10/26/16 07:30 10/26/16 07:30 Lab Results 10/26/16 11:15: POC Glucose (mg/dL) 183 H 10/26/16 07:30: Sodium 137, Potassium 4.0, Chloride 101, Carbon Dioxide 24, Anion Gap 16, BUN 4 L, Creatinine 0.4 L, Est GFR ( Amer) > 60, Est GFR ( Non-Af Amer) > 60, Random Glucose 167 H, Calcium 8.7, Total Bilirubin 0.3, AST 21, ALT 35, Alkaline Phosphatase 83, Total Protein 7.3, Albumin 4.0, Globulin 3.3, Albumin/Globulin Ratio 1.2 10/26/16 07:30: WBC 9.6 D, RBC 4.09, Hgb 11.8 L, Hct 34.8 L, MCV 85.1, MCH 28.9 , MCHC 33.9, RDW 15.4 H, Plt Count 292, MPV 8.4 10/26/16 07:12: POC Glucose (mg/dL) 179 H 10/25/16 21:28: POC Glucose (mg/dL) 265 H 10/25/16 16:14: POC Glucose (mg/dL) 168 H 10/25/16 11:29: POC Glucose (mg/dL) 232 H 10/25/16 07:25: POC Glucose (mg/dL) 170 H 10/25/16 07:00: Fasting Glucose 149 H 10/25/16 07:00: RPR Nonreactive 10/25/16 07:00: TSH 3rd Generation 1.31 10/25/16 07:00: Triglycerides 169 H, Cholesterol 173, LDL Cholesterol Direct 115 , HDL Cholesterol 25 L 10/24/16 21:53: POC Glucose (mg/dL) 188 H 10/24/16 12:17: Urine Opiates Screen Negative, Urine Methadone Screen Negative, Ur Barbiturates Screen Negative, Ur Phencyclidine Scrn Negative, Ur Amphetamines Screen Negative, U Benzodiazepines Scrn Negative, U Oth Cocaine Metabols Negative, U Cannabinoids Screen Negative 10/24/16 12:17: Urine Color Yellow, Urine Appearance Clear, Urine pH 7.0, Ur Specific [place] 1.010, Urine Protein Negative, Urine Glucose (UA) Negative, Urine Ketones 15 H, Urine Blood Trace-intact H, Urine Nitrate Negative, Urine Bilirubin Negative, Urine Urobilinogen 0.2, Ur Leukocyte Esterase Small H, Urine RBC 0 - 2, Urine WBC 1 - 3, Ur Epithelial Cells 4 - 5, Urine Bacteria Few 10/24/16 11:40: Alcohol, Quantitative < 10 10/24/16 11:40: Salicylates < 1 L, Acetaminophen < 10.0 L 10/24/16 11:40: Sodium 136, Potassium 3.8, Chloride 102, Carbon Dioxide 22, Anion Gap 16, BUN 10, Creatinine 0.5, Est GFR ( Amer) > 60, Est GFR (Non- Af Amer) > 60, Random Glucose 133 H, Calcium 10.1, Total Bilirubin 0.4, AST 29, ALT 38, Alkaline Phosphatase 101, Total Protein 7.9, Albumin 4.2, Globulin 3.7, Albumin/Globulin Ratio 1.1 10/24/16 11:40: WBC 12.8 H, RBC 4.29, Hgb 12.5, Hct 36.5, MCV 85.1, MCH 29.1, MCHC 34.2, RDW 15.9 H, Plt Count 317, MPV 8.5, Gran % 67.6, Lymph % (Auto) 25.6 , [place] % (Auto) 5.3, Eos % (Auto) 1.2 L, Baso % (Auto) 0.3, Gran # 8.62 H, Lymph # 3.3, [place] # 0.7 H, Eos # 0.2, Baso # 0.04 10/24/16 11:28: POC Glucose (mg/dL) 145 H Vital Signs Temp Pulse Resp BP Pulse Ox 10/26/16 16:13 104 H 133/88 10/26/16 08:34 126/86 10/26/16 07:42 98.0 F 94 H 20 126/86 10/25/16 19:17 97.2 F L 10/25/16 16:00 90 122/80 10/25/16 08:34 116/83 10/25/16 07:24 97.8 F 79 20 116/83 10/24/16 17:03 98.6 F 99 H 17 147/88 97 10/24/16 10:38 98.3 F 110 H 18 126/87 97 DSM 5 Symptoms Update: shortly patient is 40 years old -Portuguese female, long and debilitating history of schizophrenia, treatment resistant, multiple admissions to the psychiatric inpatient unit in the past, including to this hospital, for this year only it is the fourth admission to the [facility], most recent was less than two weeks ago at [facility], patient is followed by [facility] team, pt is on clozaril and Haldol Dec. PACT team SW evaluated pt at the ED , still pt was not able to contract for safety. She was seen and examined at the tx team room, presented to have fair personal hygiene, good ADLs, pt said that she feels better, she does not want to go to [facility], "I have a lot of things to lose, I am willing to comply, I will call PACT prior to sign myself in". pt still delusional, paranoid. pt said she is in the relationship with Mr. Alvarez (delusions, started drawing him again). pt is very superficial, poor and unreliable historian. labs submitted to the Clozaril [facility] Impression: schizoaffective disorder spoke to at [facility], will not consider to accept pt spoke to Lani LARES, will have meeting in order to have plan to avoid unnecessary admissions. Medication Change: No (continued) Medical Record Reviewed: Yes Consults ordered or reviewed: medical consult appreciated Mental Status Examination - Cognitive Function Orientation: Person Memory: Impaired Attention: Poor Concentration: Poor Association: Loose Fund of Knowledge: Poor - Mood Mood: Depressed - Affect Affect: Flat - Formal Thought Process Formal Thought Process: Delusions - Suicidal Ideation Suicidal Ideation: No - Homicidal Ideation Homicidal Ideation: No Goal/Treatment Plan - Goal/Treatment Plan Need for Continued Stay: Remain at risks for inpatient hospitalization, Severe depression anxiety, Discharge may exacerbated symptoms, Failed transitioning, Severe functional impairment Progress Toward Problem(s) and Goals/Treatment Plan: milieu, structure, supportive therapy All medications will be resumed Medical consult appreciated Collateral information appreciated We'll monitor closely PACT team suggested [facility] screening because of frequent admissions to the psych unit (this year it is the fourth one) d/w [facility] d/w PACT Estimated Date of D/C: 11/04/16 (will monitor closely)
[2016-10-28] MEDS ORDERED: Promethazine 6.25 MG/5 ML CUP PO PRN (07:34)
--- NOTE | 2016-10-28 08:49 | PN ---
DATE: 10/28/2016 SUBJECTIVE: I saw the patient in the 5-B psych floor. She is coughing, congested and she developed a cold over the past 16 hours. She is not feeling well. Lots of green mucus, sore throat and head c ongestion. I put her on amoxicillin 500 mg 3 times a day and Phenergan without codeine 1 teaspoon 4 times a day. Hopefully, that will help her. She is also on aspirin, Clozaril, Cogentin, Colace, Coz aar, Feosol, Glucophage, milk of magnesia, Maalox, Norvasc, Phenergan, just added Tylenol and Zetia. PHYSICAL EXAMINATION: VITAL SIGNS: Are 97.8 temp, 86 pulse, 106/67 blood pressure, 20 respiratory rate. HEAD: Atraumatic, normocephalic. Throat is red. NECK: Supple. She is coughing, congestion, nose running greenish mucus. HEART: Regular rate. LUNGS: She has congestion bilaterally, changes with cough. ABDOMEN: Soft. EXTREMITIES: No edema. LABS: She has a 9.6 white count, 11.8, hemoglobin, 292 platelets. Last blood sugar was 158. She valentin s 137 sodium, potassium 4, BUN is 4, creatinine 0.4, calcium is 8.7, AST is 20, ALT 35, alkaline phos phatase 83. She is being seen by psychiatry. She is here for suicidal thoughts, depression, schizoaffective disorder, hypertension, diabetes, high cholesterol, and leukocytosis and now an upper respiratory infection. Hopefully, she will get eli choudhary Jason Contreras DO cc: [id number] TT: 10/28/2016 08:49:19 Confirmation # [id number] Dictation # [id number] krish
--- NOTE | 2016-10-28 17:48 | PCM.PYCHPN ---
Psychiatric Progress Note - Psychiatric Progress Note Patient seen today, length of contact: 30min Patient Chief Complaint: "you do not know what does it mean to have a mental illness since age of 14" Problems Identified/Issues Discussed: Suicide/ homicide prevention, past psychiatric h/o, current psychiatric symptoms , medical problems, risk/benefits and alternatives of medications, medications compliance, coping strategies, substance abuse h/o, relapse prevention, importance of follow up with psychiatrist and therapist, discharge plan. Medical Problems: HTN, diabetis, dyslipidemia Diagnostic Results: 10/26/16 07:30 10/26/16 07:30 Lab Results 10/26/16 11:15: POC Glucose (mg/dL) 183 H 10/26/16 07:30: Sodium 137, Potassium 4.0, Chloride 101, Carbon Dioxide 24, Anion Gap 16, BUN 4 L, Creatinine 0.4 L, Est GFR ( Amer) > 60, Est GFR ( Non-Af Amer) > 60, Random Glucose 167 H, Calcium 8.7, Total Bilirubin 0.3, AST 21, ALT 35, Alkaline Phosphatase 83, Total Protein 7.3, Albumin 4.0, Globulin 3.3, Albumin/Globulin Ratio 1.2 10/26/16 07:30: WBC 9.6 D, RBC 4.09, Hgb 11.8 L, Hct 34.8 L, MCV 85.1, MCH 28.9 , MCHC 33.9, RDW 15.4 H, Plt Count 292, MPV 8.4 10/26/16 07:12: POC Glucose (mg/dL) 179 H 10/25/16 21:28: POC Glucose (mg/dL) 265 H 10/25/16 16:14: POC Glucose (mg/dL) 168 H 10/25/16 11:29: POC Glucose (mg/dL) 232 H 10/25/16 07:25: POC Glucose (mg/dL) 170 H 10/25/16 07:00: Fasting Glucose 149 H 10/25/16 07:00: RPR Nonreactive 10/25/16 07:00: TSH 3rd Generation 1.31 10/25/16 07:00: Triglycerides 169 H, Cholesterol 173, LDL Cholesterol Direct 115 , HDL Cholesterol 25 L 10/24/16 21:53: POC Glucose (mg/dL) 188 H 10/24/16 12:17: Urine Opiates Screen Negative, Urine Methadone Screen Negative, Ur Barbiturates Screen Negative, Ur Phencyclidine Scrn Negative, Ur Amphetamines Screen Negative, U Benzodiazepines Scrn Negative, U Oth Cocaine Metabols Negative, U Cannabinoids Screen Negative 10/24/16 12:17: Urine Color Yellow, Urine Appearance Clear, Urine pH 7.0, Ur Specific [place] 1.010, Urine Protein Negative, Urine Glucose (UA) Negative, Urine Ketones 15 H, Urine Blood Trace-intact H, Urine Nitrate Negative, Urine Bilirubin Negative, Urine Urobilinogen 0.2, Ur Leukocyte Esterase Small H, Urine RBC 0 - 2, Urine WBC 1 - 3, Ur Epithelial Cells 4 - 5, Urine Bacteria Few 10/24/16 11:40: Alcohol, Quantitative < 10 10/24/16 11:40: Salicylates < 1 L, Acetaminophen < 10.0 L 10/24/16 11:40: Sodium 136, Potassium 3.8, Chloride 102, Carbon Dioxide 22, Anion Gap 16, BUN 10, Creatinine 0.5, Est GFR ( Amer) > 60, Est GFR (Non- Af Amer) > 60, Random Glucose 133 H, Calcium 10.1, Total Bilirubin 0.4, AST 29, ALT 38, Alkaline Phosphatase 101, Total Protein 7.9, Albumin 4.2, Globulin 3.7, Albumin/Globulin Ratio 1.1 10/24/16 11:40: WBC 12.8 H, RBC 4.29, Hgb 12.5, Hct 36.5, MCV 85.1, MCH 29.1, MCHC 34.2, RDW 15.9 H, Plt Count 317, MPV 8.5, Gran % 67.6, Lymph % (Auto) 25.6 , [place] % (Auto) 5.3, Eos % (Auto) 1.2 L, Baso % (Auto) 0.3, Gran # 8.62 H, Lymph # 3.3, [place] # 0.7 H, Eos # 0.2, Baso # 0.04 10/24/16 11:28: POC Glucose (mg/dL) 145 H Vital Signs Temp Pulse Resp BP Pulse Ox 10/26/16 16:13 104 H 133/88 10/26/16 08:34 126/86 10/26/16 07:42 98.0 F 94 H 20 126/86 10/25/16 19:17 97.2 F L 10/25/16 16:00 90 122/80 10/25/16 08:34 116/83 10/25/16 07:24 97.8 F 79 20 116/83 10/24/16 17:03 98.6 F 99 H 17 147/88 97 10/24/16 10:38 98.3 F 110 H 18 126/87 97 Temp Pulse Resp BP Pulse Ox 99.0 F 112 H 20 138/91 H 97 10/28/16 07:42 10/28/16 16:25 10/28/16 07:42 10/28/16 16:25 10/24/16 17:03 DSM 5 Symptoms Update: shortly patient is 40 years old -Armenian female, long and debilitating history of schizophrenia, treatment resistant, multiple admissions to the psychiatric inpatient unit in the past, including to this hospital, for this year only it is the fourth admission to the [facility], most recent was less than two weeks ago at [facility], patient is followed by [facility]K team, pt is on clozaril and Haldol Dec. PACT team SW evaluated pt at the ED , still pt was not able to contract for safety. She was seen and examined in her room, presented to have fair personal hygiene, good ADLs, pt said that she is depressed and sad because she has mental illness and "you do not know what does it mean", pt said that she had a happy childhood but had her first brake of schizophrenia at age of 14, pt said "everything went downhill". pt said that she feels that she wants to go to college but know that she cannot do so. will add zoloft pt still delusional, paranoid. pt said she is in the relationship with Mr. Alvarez (delusions, started drawing him again). labs submitted to the Cl[facility] Impression: schizoaffective disorder spoke to at [facility], will not consider to accept pt spoke to Lani LARES, will have meeting in order to have plan to avoid unnecessary admissions. Medication Change: Yes (zoloft) Medical Record Reviewed: Yes Consults ordered or reviewed: medical consult appreciated pt was started on abx forURI Mental Status Examination - Cognitive Function Orientation: Person Memory: Impaired Attention: Poor Concentration: Poor Association: Loose Fund of Knowledge: Poor - Mood Mood: Depressed - Affect Affect: Flat - Formal Thought Process Formal Thought Process: Delusions - Suicidal Ideation Suicidal Ideation: No - Homicidal Ideation Homicidal Ideation: No Goal/Treatment Plan - Goal/Treatment Plan Need for Continued Stay: Remain at risks for inpatient hospitalization, Severe depression anxiety, Discharge may exacerbated symptoms, Failed transitioning, Severe functional impairment Progress Toward Problem(s) and Goals/Treatment Plan: milieu, structure, supportive therapy clozaril 200mg am and 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 Injectable Haldol 100mg q monthly last injection was 10/19/2016 cogentin 1mg po bid for EPS Medical consult appreciated Collateral information appreciated We'll monitor closely zoloft 50mg daily for depression d/w [facility], will not consider to screen pt d/w PACT tx team meeting will invite PACT team Estimated Date of D/C: 11/04/16 (will monitor closely)
--- NOTE | 2016-10-29 08:55 | PCM.PYCHPN ---
Psychiatric Progress Note - Psychiatric Progress Note Patient seen today, length of contact: 25 min Problems Identified/Issues Discussed: I reviewed recent notes and met with patient at bedside. Patient remains alert, oriented x3, superficially bright and cooperative. Indicates that she is doing better. She denies recurrence of hallucinations or suicidal thoughts. Patient doesn't appear to be actively responding to internal stimuli and she is less internally preoccupied. Affect is flat but she is not overtly bizarre. Has been eating and sleeping fairly well. Presently patient denies having any new discomfort or pain. Nursing notes also indicates that patient has been in good control and generally pleasant on the unit. Polite and interactive. Observed singing on the unit similar to her many prior admissions. There were no behavioral issues overnight. Diagnostic Results: schizoaffective disorder Medication Change: No ( ) Medical Record Reviewed: Yes (notes, vitals, labs, reports) Mental Status Examination - Cognitive Function Orientation: Person Memory: Impaired Attention: Poor Concentration: Poor Association: Loose Fund of Knowledge: Poor - Mood Mood: Depressed - Affect Affect: Flat - Formal Thought Process Formal Thought Process: Delusions (none elicited this morning) - Suicidal Ideation Suicidal Ideation: No - Homicidal Ideation Homicidal Ideation: No Goal/Treatment Plan - Goal/Treatment Plan Need for Continued Stay: Remain at risks for inpatient hospitalization, Severe depression anxiety, Discharge may exacerbated symptoms, Failed transitioning, Severe functional impairment Progress Toward Problem(s) and Goals/Treatment Plan: * c/w current tx and plan * No new weekend labs * Vitals reviewed and noted below: Selected Entries 10/28/16 10/28/16 10/28/16 07:42 08:28 16:25 Temperature 99.0 F Pulse Rate 110 H 112 H Respiratory 20 Rate Blood Pressure 142/94 H 142/94 H 138/91 H Estimated Date of D/C: 11/04/16 (will monitor closely)
--- NOTE | 2016-10-29 13:17 | PN ---
DATE: 10/29/2016 I saw her walking the floors today. She still has a little bit of a cough. She is now on amoxicilli n and cough medicine. She is on aspirin, Clozaril, Cogentin, Colace, Cozaar, Feosol, Glucophage, Maa lox, milk of magnesia, Norvasc, Phenergan, Tylenol, Zetia and Zoloft. She is doing better mentally w hich is important. The cough will go away. PHYSICAL EXAMINATION: VITAL SIGNS: She has a 97.8 temp, 98 pulse, 116/75 blood pressure, 17 respiratory rate. HEENT: Head is atraumatic, normocephalic. Throat is mildly red. NECK: Some cervical adenopathy. HEART: Regular rate. LUNGS: Mild congestion. She clears with cough. ABDOMEN: Soft, obese. EXTREMITIES: No edema. LABORATORY DATA: She has a 9.6 white count, 11.8 hemoglobin, 292 platelets. Last blood sugar was 18 3. She is being seen by psychiatry. She had suicidal thoughts, depression, schizoaffective disorder, hy pertension, diabetes, high cholesterol. She had a leukocytosis. She is a smoker and also upper resp iratory infection. She now on antibiotics and a cough medicine: As per psychiatry, I will continue to follow. Hopefully, she will continue to improve. Jason Contreras DO cc: [id number] TT: 10/29/2016 13:16:42 Confirmation # [id number] Dictation # [id number] tn
--- NOTE | 2016-10-30 08:45 | PCM.PYCHPN ---
Psychiatric Progress Note - Psychiatric Progress Note Patient seen today, length of contact: 25 min Patient Chief Complaint: "doing better" Problems Identified/Issues Discussed: I reviewed recent notes and met with patient at bedside. Patient remains alert , oriented x3, superficially bright and cooperative. Indicates that she is doing better. Only complains of a cough this morning. She denies recurrence of hallucinations or suicidal thoughts. Patient doesn't appear to be actively responding to internal stimuli and she is less internally preoccupied. Affect is flat but she is not overtly bizarre. She has been eating and sleeping fairly well. Presently patient denies having any new discomfort or pain. Nursing notes also indicates that patient has been in good control and generally pleasant on the unit. Polite and interactive. Observed singing on the unit similar to her many prior admissions. There were no behavioral issues over the weekend . Diagnostic Results: schizoaffective disorder Medication Change: No ( ) Medical Record Reviewed: Yes (notes, vitals, labs, reports) Mental Status Examination - Cognitive Function Orientation: Person Memory: Impaired Attention: WNL Concentration: Poor Association: Loose Fund of Knowledge: Poor - Mood Mood: Depressed ("doing better") - Affect Affect: Flat (improving reactivity) - Speech Speech: Appropriate - Formal Thought Process Formal Thought Process: Delusions (improving) - Suicidal Ideation Suicidal Ideation: No - Homicidal Ideation Homicidal Ideation: No Goal/Treatment Plan - Goal/Treatment Plan Need for Continued Stay: Remain at risks for inpatient hospitalization, Severe depression anxiety, Discharge may exacerbated symptoms, Failed transitioning, Severe functional impairment Progress Toward Problem(s) and Goals/Treatment Plan: * c/w current tx and plan * Appreciate f/u by Dr. Contreras on 10/29/16~no new recommendations * No new weekend labs * Vitals reviewed and noted below: Selected Entries 10/29/16 10/30/16 14:00 07:50 Temperature 97.3 F L Pulse Rate 100 H 105 H Respiratory 20 Rate Blood Pressure 126/80 139/92 H Estimated Date of D/C: 11/04/16 (will monitor closely)
--- NOTE | 2016-10-30 11:45 | PN ---
DATE: 10/30/2016 HISTORY OF PRESENT ILLNESS: I saw the patient in her chair. She is feeling much better. No more c oughing, no more congestion. She looks a lot better, sounds a lot better. She is eating better, goo d spirits and she is participating, taking the medications. She was here for suicidal, depression, s chizoaffective disorder, hypertension, diabetes, high cholesterol, leukocytosis, upper respiratory in fection, smoker. PHYSICAL EXAMINATION: VITAL SIGNS: With 97.3 temp, 98 pulse, 126/80 blood pressure, 17 respiratory rate. HEENT: Head is atraumatic, normocephalic. Throat is dry. No erythema. NECK: Supple. HEART: Regular rate. LUNGS: Clear to auscultation. No rhonchi, wheezes or congestion. ABDOMEN: Soft, obese. EXTREMITIES: No edema. MEDICATIONS: She is currently on amoxicillin, aspirin, Clozaril, Cogentin, Colace, Cozaar, Feosol, Glucophage, Maalox, milk of magnesia, Norvasc, Phenergan, and Tylenol, Zetia, Zoloft. PLAN: She is being seen by psychiatry. I do think she is improving medically and psychologically. Will continue with aggressive treatment and care. Continue to follow. Jason Contreras DO cc: [id number] TT: 10/30/2016 11:44:01 Confirmation # [id number] Dictation # [id number] ln
--- NOTE | 2016-10-31 08:55 | PN ---
DATE: 10/31/2016 I saw her resting comfortably in the psychiatric floor sleeping in bed. She is easily arousable. Sh e is comfortable. No complaints. She slept well. She is on amoxicillin, aspirin, Clozaril, Cogentin, Colace, Cozaar, Feosol, Glucophage, Maalox, milk of magnesia, Norvasc, Phenergan, Tylenol, Zetia and Zoloft. PHYSICAL EXAMINATION: VITAL SIGNS: 98 temp, 92 pulse, 116/81 blood pressure, 20 respiratory rate. HEENT: Head is atraumatic, normocephalic. HEART: Regular rate. LUNGS: Clear to auscultation. ABDOMEN: Soft, obese. EXTREMITIES: No edema. She is doing much better with her upper respiratory infection. LABORATORY DATA: She has a 170 blood sugar; that was last blood sugar. Overall, she is improving as per psychiatry. She had suicidal depression, schizoaffective disorder, hypertension, diabetes, high cholesterol, leukocytosis and upper respiratory infection. She is also a smoker. She knows I want her to quit smoking. As per psychiatry. Jason Contreras DO cc: [id number] TT: 10/31/2016 08:54:39 Confirmation # [id number] Dictation # [id number]
--- NOTE | 2016-10-31 14:54 | PCM.PYCHPN ---
Psychiatric Progress Note - Psychiatric Progress Note Patient seen today, length of contact: 30min Patient Chief Complaint: "I feel great, I had a wonderful weekend" Problems Identified/Issues Discussed: Suicide/ homicide prevention, past psychiatric h/o, current psychiatric symptoms , medical problems, risk/benefits and alternatives of medications, medications compliance, coping strategies, substance abuse h/o, relapse prevention, importance of follow up with psychiatrist and therapist, discharge plan. Medical Problems: HTN, diabetis, dyslipidemia Diagnostic Results: 10/26/16 07:30 10/26/16 07:30 Lab Results 10/26/16 11:15: POC Glucose (mg/dL) 183 H 10/26/16 07:30: Sodium 137, Potassium 4.0, Chloride 101, Carbon Dioxide 24, Anion Gap 16, BUN 4 L, Creatinine 0.4 L, Est GFR ( Amer) > 60, Est GFR ( Non-Af Amer) > 60, Random Glucose 167 H, Calcium 8.7, Total Bilirubin 0.3, AST 21, ALT 35, Alkaline Phosphatase 83, Total Protein 7.3, Albumin 4.0, Globulin 3.3, Albumin/Globulin Ratio 1.2 10/26/16 07:30: WBC 9.6 D, RBC 4.09, Hgb 11.8 L, Hct 34.8 L, MCV 85.1, MCH 28.9 , MCHC 33.9, RDW 15.4 H, Plt Count 292, MPV 8.4 10/26/16 07:12: POC Glucose (mg/dL) 179 H 10/25/16 21:28: POC Glucose (mg/dL) 265 H 10/25/16 16:14: POC Glucose (mg/dL) 168 H 10/25/16 11:29: POC Glucose (mg/dL) 232 H 10/25/16 07:25: POC Glucose (mg/dL) 170 H 10/25/16 07:00: Fasting Glucose 149 H 10/25/16 07:00: RPR Nonreactive 10/25/16 07:00: TSH 3rd Generation 1.31 10/25/16 07:00: Triglycerides 169 H, Cholesterol 173, LDL Cholesterol Direct 115 , HDL Cholesterol 25 L 10/24/16 21:53: POC Glucose (mg/dL) 188 H 10/24/16 12:17: Urine Opiates Screen Negative, Urine Methadone Screen Negative, Ur Barbiturates Screen Negative, Ur Phencyclidine Scrn Negative, Ur Amphetamines Screen Negative, U Benzodiazepines Scrn Negative, U Oth Cocaine Metabols Negative, U Cannabinoids Screen Negative 10/24/16 12:17: Urine Color Yellow, Urine Appearance Clear, Urine pH 7.0, Ur Specific [place] 1.010, Urine Protein Negative, Urine Glucose (UA) Negative, Urine Ketones 15 H, Urine Blood Trace-intact H, Urine Nitrate Negative, Urine Bilirubin Negative, Urine Urobilinogen 0.2, Ur Leukocyte Esterase Small H, Urine RBC 0 - 2, Urine WBC 1 - 3, Ur Epithelial Cells 4 - 5, Urine Bacteria Few 10/24/16 11:40: Alcohol, Quantitative < 10 10/24/16 11:40: Salicylates < 1 L, Acetaminophen < 10.0 L 10/24/16 11:40: Sodium 136, Potassium 3.8, Chloride 102, Carbon Dioxide 22, Anion Gap 16, BUN 10, Creatinine 0.5, Est GFR ( Amer) > 60, Est GFR (Non- Af Amer) > 60, Random Glucose 133 H, Calcium 10.1, Total Bilirubin 0.4, AST 29, ALT 38, Alkaline Phosphatase 101, Total Protein 7.9, Albumin 4.2, Globulin 3.7, Albumin/Globulin Ratio 1.1 10/24/16 11:40: WBC 12.8 H, RBC 4.29, Hgb 12.5, Hct 36.5, MCV 85.1, MCH 29.1, MCHC 34.2, RDW 15.9 H, Plt Count 317, MPV 8.5, Gran % 67.6, Lymph % (Auto) 25.6 , [place] % (Auto) 5.3, Eos % (Auto) 1.2 L, Baso % (Auto) 0.3, Gran # 8.62 H, Lymph # 3.3, [place] # 0.7 H, Eos # 0.2, Baso # 0.04 10/24/16 11:28: POC Glucose (mg/dL) 145 H Vital Signs Temp Pulse Resp BP Pulse Ox 10/26/16 16:13 104 H 133/88 10/26/16 08:34 126/86 10/26/16 07:42 98.0 F 94 H 20 126/86 10/25/16 19:17 97.2 F L 10/25/16 16:00 90 122/80 10/25/16 08:34 116/83 10/25/16 07:24 97.8 F 79 20 116/83 10/24/16 17:03 98.6 F 99 H 17 147/88 97 10/24/16 10:38 98.3 F 110 H 18 126/87 97 Temp Pulse Resp BP Pulse Ox 99.0 F 112 H 20 138/91 H 97 10/28/16 07:42 10/28/16 16:25 10/28/16 07:42 10/28/16 16:25 10/24/16 17:03 Temp Pulse Resp BP Pulse Ox 98.0 F 92 H 20 116/81 97 10/31/16 07:51 10/31/16 07:51 10/31/16 07:51 10/31/16 09:14 10/24/16 17:03 DSM 5 Symptoms Update: shortly patient is 40 years old -[place] female, long and debilitating history of schizophrenia, treatment resistant, multiple admissions to the psychiatric inpatient unit in the past, including to this hospital, for this year only it is the fourth admission to the [facility], most recent was less than two weeks ago at [facility], patient is followed by [facility], pt is on clozaril and Haldol Dec. PACT team SW evaluated pt at the ED , still pt was not able to contract for safety. patient went back to her regular, there is superficial state, patient was saying "you are the best doctor, I had a great weekend". no behavioral incidents, pt compliant with meds. PACT team was contacted, requested meeting. pt still delusional, erotomanic delusions that she is in intimate relationship with Mr. Alvarez (imaginary). labs submitted to the Cl[facility] Impression: schizoaffective disorder spoke to at [facility], will not consider to accept pt spoke to Lani MARLOWT, will have meeting in order to have plan to avoid unnecessary admissions. Medication Change: No ( ) Medical Record Reviewed: Yes (notes, vitals, labs, reports) Consults ordered or reviewed: medical consult appreciated pt was started on abx forURI Mental Status Examination - Cognitive Function Orientation: Person Memory: Impaired Attention: WNL Concentration: Poor Association: Loose Fund of Knowledge: Poor - Mood Mood: Depressed ("doing better") - Affect Affect: Flat (improving reactivity) - Speech Speech: Appropriate - Formal Thought Process Formal Thought Process: Delusions (improving) - Suicidal Ideation Suicidal Ideation: No - Homicidal Ideation Homicidal Ideation: No Goal/Treatment Plan - Goal/Treatment Plan Need for Continued Stay: Remain at risks for inpatient hospitalization, Severe depression anxiety, Discharge may exacerbated symptoms, Failed transitioning, Severe functional impairment Progress Toward Problem(s) and Goals/Treatment Plan: milieu, structure, supportive therapy clozaril 200mg am and 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
--- NOTE | 2016-11-01 12:44 | PN ---
DATE: 11/01/2016 I saw her resting comfortably in bed on the psychiatric floor. She said her cold is much better. No symptoms. She is eating well, participating in taking her medications. MEDICATIONS: She is currently on amoxicillin, aspirin, Clozaril, Cogentin, Colace, Cozaar, Feosol, G lucophage, Maalox, milk of magnesia, Norvasc, Phenergan, Tylenol, Zetia, and Zoloft. PHYSICAL EXAMINATION: VITAL SIGNS: She has a 98.5 temp, 95 pulse, 128/96 blood pressure, 116/81 blood pressure, and 16 res piratory rate. HEAD: Atraumatic, normocephalic. HEART: Regular rate. LUNGS: Decreased breath sounds, but clear. ABDOMEN: Soft, obese. EXTREMITIES: No edema. LABORATORY DATA: Blood sugar of 175 was the last blood sugar. She is being seen by psychiatry. She is here for numerous reasons - she had severe depression, anxie ty, suicidal depression, schizoaffective disorder, hypertension, diabetes, high cholesterol, leukocyt osis, upper respiratory infection, and smoker. Continue aggressive care, as per psychiatry. Continu e antibiotics for the upper respiratory infection, which are working. Jason Contreras DO cc: [id number] TT: 11/01/2016 10:22:33 Confirmation # [id number] Dictation # [id number] jn
--- NOTE | 2016-11-01 15:33 | PCM.PYCHPN ---
Psychiatric Progress Note - Psychiatric Progress Note Patient seen today, length of contact: 30min Patient Chief Complaint: "I feel great, next time I will call my PACT team before coming to the hospital " Problems Identified/Issues Discussed: Suicide/ homicide prevention, past psychiatric h/o, current psychiatric symptoms , medical problems, risk/benefits and alternatives of medications, medications compliance, coping strategies, substance abuse h/o, relapse prevention, importance of follow up with psychiatrist and therapist, discharge plan. Medical Problems: HTN, diabetis, dyslipidemia Diagnostic Results: 10/26/16 07:30 10/26/16 07:30 Lab Results 10/26/16 11:15: POC Glucose (mg/dL) 183 H 10/26/16 07:30: Sodium 137, Potassium 4.0, Chloride 101, Carbon Dioxide 24, Anion Gap 16, BUN 4 L, Creatinine 0.4 L, Est GFR ( Amer) > 60, Est GFR ( Non-Af Amer) > 60, Random Glucose 167 H, Calcium 8.7, Total Bilirubin 0.3, AST 21, ALT 35, Alkaline Phosphatase 83, Total Protein 7.3, Albumin 4.0, Globulin 3.3, Albumin/Globulin Ratio 1.2 10/26/16 07:30: WBC 9.6 D, RBC 4.09, Hgb 11.8 L, Hct 34.8 L, MCV 85.1, MCH 28.9 , MCHC 33.9, RDW 15.4 H, Plt Count 292, MPV 8.4 10/26/16 07:12: POC Glucose (mg/dL) 179 H 10/25/16 21:28: POC Glucose (mg/dL) 265 H 10/25/16 16:14: POC Glucose (mg/dL) 168 H 10/25/16 11:29: POC Glucose (mg/dL) 232 H 10/25/16 07:25: POC Glucose (mg/dL) 170 H 10/25/16 07:00: Fasting Glucose 149 H 10/25/16 07:00: RPR Nonreactive 10/25/16 07:00: TSH 3rd Generation 1.31 10/25/16 07:00: Triglycerides 169 H, Cholesterol 173, LDL Cholesterol Direct 115 , HDL Cholesterol 25 L 10/24/16 21:53: POC Glucose (mg/dL) 188 H 10/24/16 12:17: Urine Opiates Screen Negative, Urine Methadone Screen Negative, Ur Barbiturates Screen Negative, Ur Phencyclidine Scrn Negative, Ur Amphetamines Screen Negative, U Benzodiazepines Scrn Negative, U Oth Cocaine Metabols Negative, U Cannabinoids Screen Negative 10/24/16 12:17: Urine Color Yellow, Urine Appearance Clear, Urine pH 7.0, Ur Specific [place] 1.010, Urine Protein Negative, Urine Glucose (UA) Negative, Urine Ketones 15 H, Urine Blood Trace-intact H, Urine Nitrate Negative, Urine Bilirubin Negative, Urine Urobilinogen 0.2, Ur Leukocyte Esterase Small H, Urine RBC 0 - 2, Urine WBC 1 - 3, Ur Epithelial Cells 4 - 5, Urine Bacteria Few 10/24/16 11:40: Alcohol, Quantitative < 10 10/24/16 11:40: Salicylates < 1 L, Acetaminophen < 10.0 L 10/24/16 11:40: Sodium 136, Potassium 3.8, Chloride 102, Carbon Dioxide 22, Anion Gap 16, BUN 10, Creatinine 0.5, Est GFR ( Amer) > 60, Est GFR (Non- Af Amer) > 60, Random Glucose 133 H, Calcium 10.1, Total Bilirubin 0.4, AST 29, ALT 38, Alkaline Phosphatase 101, Total Protein 7.9, Albumin 4.2, Globulin 3.7, Albumin/Globulin Ratio 1.1 10/24/16 11:40: WBC 12.8 H, RBC 4.29, Hgb 12.5, Hct 36.5, MCV 85.1, MCH 29.1, MCHC 34.2, RDW 15.9 H, Plt Count 317, MPV 8.5, Gran % 67.6, Lymph % (Auto) 25.6 , [place] % (Auto) 5.3, Eos % (Auto) 1.2 L, Baso % (Auto) 0.3, Gran # 8.62 H, Lymph # 3.3, [place] # 0.7 H, Eos # 0.2, Baso # 0.04 10/24/16 11:28: POC Glucose (mg/dL) 145 H Vital Signs Temp Pulse Resp BP Pulse Ox 10/26/16 16:13 104 H 133/88 10/26/16 08:34 126/86 10/26/16 07:42 98.0 F 94 H 20 126/86 10/25/16 19:17 97.2 F L 10/25/16 16:00 90 122/80 10/25/16 08:34 116/83 10/25/16 07:24 97.8 F 79 20 116/83 10/24/16 17:03 98.6 F 99 H 17 147/88 97 10/24/16 10:38 98.3 F 110 H 18 126/87 97 Temp Pulse Resp BP Pulse Ox 99.0 F 112 H 20 138/91 H 97 10/28/16 07:42 10/28/16 16:25 10/28/16 07:42 10/28/16 16:25 10/24/16 17:03 Temp Pulse Resp BP Pulse Ox 98.0 F 92 H 20 116/81 97 10/31/16 07:51 10/31/16 07:51 10/31/16 07:51 10/31/16 09:14 10/24/16 17:03 Temp Pulse Resp BP Pulse Ox 98.5 F 95 H 16 128/96 H 97 11/01/16 08:11 11/01/16 08:11 11/01/16 08:11 11/01/16 09:18 10/24/16 17:03 DSM 5 Symptoms Update: shortly patient is 40 years old -[place] female, long and debilitating history of schizophrenia, treatment resistant, multiple admissions to the psychiatric inpatient unit in the past, including to this hospital, for this year only it is the fourth admission to the [facility], most recent was less than two weeks ago at [facility], patient is followed by [facility] team, pt is on clozaril and Haldol Dec. PACT team SW evaluated pt at the ED , still pt was not able to contract for safety. patient went back to her regular, there is superficial state, patient was saying "you are the best doctor, I had a great weekend", pt also said "I the future references, I will call my PACT team just to be on the safe side" (pt is afraid to be transferred to the [facility] and losing her apartment). no behavioral incidents, pt compliant with meds. PACT team was contacted, requested meeting, Lani will come on this . pt still delusional, erotomanic delusions that she is in intimate relationship with Mr. Alvarez (imaginary). labs submitted to the [facility] Impression: schizoaffective disorder spoke to at [facility], will not consider to accept pt spoke to Lani LARES, will have meeting in order to have plan to avoid unnecessary admissions. Medication Change: No ( ) Medical Record Reviewed: Yes (notes, vitals, labs, reports) Consults ordered or reviewed: medical consult appreciated pt was started on abx forURI Mental Status Examination - Cognitive Function Orientation: Person Memory: Impaired Attention: WNL Concentration: Poor Association: Loose Fund of Knowledge: Poor - Mood Mood: Depressed ("doing better") - Affect Affect: Flat (improving reactivity) - Speech Speech: Appropriate - Formal Thought Process Formal Thought Process: Delusions (improving) - Suicidal Ideation Suicidal Ideation: No - Homicidal Ideation Homicidal Ideation: No Goal/Treatment Plan - Goal/Treatment Plan Need for Continued Stay: Remain at risks for inpatient hospitalization, Severe depression anxiety, Discharge may exacerbated symptoms, Failed transitioning, Severe functional impairment Progress Toward Problem(s) and Goals/Treatment Plan: milieu, structure, supportive therapy clozaril 200mg am and 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
--- NOTE | 2016-11-02 08:57 | PN ---
DATE: 11/02/2016 I saw her on the psychiatric floor resting in bed. She was sleeping. She had a good night's sleep. No complaints at this time. She is comfortable. She tells me she is feeling better. MEDICATIONS: She is on aspirin, Clozaril, Cogentin, Colace, Cozaar, Feosol, Glucophage, Maalox, milk of magnesia, Norvasc, Phenergan, Tylenol, Zetia, and Zoloft. PHYSICAL EXAMINATION: VITAL SIGNS: Temp 97.7, 93 pulse, 127/77 blood pressure, 20 respiratory rate. HEAD: Atraumatic, normocephalic. HEART: Regular rate. LUNGS: Clear to auscultation. ABDOMEN: Soft, obese. EXTREMITIES: No edema. LABORATORY DATA: Latest labs were on the , and she did well. Last blood sugar was 171. I encouraged her to participate in groups, take the medications as per psychiatry. It is very possib le she might be going home this Monday. She is improving, as per psychiatry. We will continue with aggressive treatment and care. She has depression, which I believe is lifting, anxiety, suicidal, schizoaffective disorder, hyperten erick, diabetes, high cholesterol, leukocytosis, URI, and she is a smoker. We will follow the patient . Jason Contreras DO cc: [id number] TT: 11/02/2016 08:56:53 Confirmation # [id number] Dictation # [id number] krish
--- NOTE | 2016-11-02 16:37 | PCM.PYCHPN ---
Psychiatric Progress Note - Psychiatric Progress Note Patient seen today, length of contact: 30min Patient Chief Complaint: "I am ready for the meeting tomorrow" Problems Identified/Issues Discussed: Suicide/ homicide prevention, past psychiatric h/o, current psychiatric symptoms , medical problems, risk/benefits and alternatives of medications, medications compliance, coping strategies, substance abuse h/o, relapse prevention, importance of follow up with psychiatrist and therapist, discharge plan. Medical Problems: HTN, diabetis, dyslipidemia Diagnostic Results: 10/26/16 07:30 10/26/16 07:30 Lab Results 10/26/16 11:15: POC Glucose (mg/dL) 183 H 10/26/16 07:30: Sodium 137, Potassium 4.0, Chloride 101, Carbon Dioxide 24, Anion Gap 16, BUN 4 L, Creatinine 0.4 L, Est GFR ( Amer) > 60, Est GFR ( Non-Af Amer) > 60, Random Glucose 167 H, Calcium 8.7, Total Bilirubin 0.3, AST 21, ALT 35, Alkaline Phosphatase 83, Total Protein 7.3, Albumin 4.0, Globulin 3.3, Albumin/Globulin Ratio 1.2 10/26/16 07:30: WBC 9.6 D, RBC 4.09, Hgb 11.8 L, Hct 34.8 L, MCV 85.1, MCH 28.9 , MCHC 33.9, RDW 15.4 H, Plt Count 292, MPV 8.4 10/26/16 07:12: POC Glucose (mg/dL) 179 H 10/25/16 21:28: POC Glucose (mg/dL) 265 H 10/25/16 16:14: POC Glucose (mg/dL) 168 H 10/25/16 11:29: POC Glucose (mg/dL) 232 H 10/25/16 07:25: POC Glucose (mg/dL) 170 H 10/25/16 07:00: Fasting Glucose 149 H 10/25/16 07:00: RPR Nonreactive 10/25/16 07:00: TSH 3rd Generation 1.31 10/25/16 07:00: Triglycerides 169 H, Cholesterol 173, LDL Cholesterol Direct 115 , HDL Cholesterol 25 L 10/24/16 21:53: POC Glucose (mg/dL) 188 H 10/24/16 12:17: Urine Opiates Screen Negative, Urine Methadone Screen Negative, Ur Barbiturates Screen Negative, Ur Phencyclidine Scrn Negative, Ur Amphetamines Screen Negative, U Benzodiazepines Scrn Negative, U Oth Cocaine Metabols Negative, U Cannabinoids Screen Negative 10/24/16 12:17: Urine Color Yellow, Urine Appearance Clear, Urine pH 7.0, Ur Specific [place] 1.010, Urine Protein Negative, Urine Glucose (UA) Negative, Urine Ketones 15 H, Urine Blood Trace-intact H, Urine Nitrate Negative, Urine Bilirubin Negative, Urine Urobilinogen 0.2, Ur Leukocyte Esterase Small H, Urine RBC 0 - 2, Urine WBC 1 - 3, Ur Epithelial Cells 4 - 5, Urine Bacteria Few 10/24/16 11:40: Alcohol, Quantitative < 10 10/24/16 11:40: Salicylates < 1 L, Acetaminophen < 10.0 L 10/24/16 11:40: Sodium 136, Potassium 3.8, Chloride 102, Carbon Dioxide 22, Anion Gap 16, BUN 10, Creatinine 0.5, Est GFR ( Amer) > 60, Est GFR (Non- Af Amer) > 60, Random Glucose 133 H, Calcium 10.1, Total Bilirubin 0.4, AST 29, ALT 38, Alkaline Phosphatase 101, Total Protein 7.9, Albumin 4.2, Globulin 3.7, Albumin/Globulin Ratio 1.1 10/24/16 11:40: WBC 12.8 H, RBC 4.29, Hgb 12.5, Hct 36.5, MCV 85.1, MCH 29.1, MCHC 34.2, RDW 15.9 H, Plt Count 317, MPV 8.5, Gran % 67.6, Lymph % (Auto) 25.6 , [place] % (Auto) 5.3, Eos % (Auto) 1.2 L, Baso % (Auto) 0.3, Gran # 8.62 H, Lymph # 3.3, [place] # 0.7 H, Eos # 0.2, Baso # 0.04 10/24/16 11:28: POC Glucose (mg/dL) 145 H Vital Signs Temp Pulse Resp BP Pulse Ox 10/26/16 16:13 104 H 133/88 10/26/16 08:34 126/86 10/26/16 07:42 98.0 F 94 H 20 126/86 10/25/16 19:17 97.2 F L 10/25/16 16:00 90 122/80 10/25/16 08:34 116/83 10/25/16 07:24 97.8 F 79 20 116/83 10/24/16 17:03 98.6 F 99 H 17 147/88 97 10/24/16 10:38 98.3 F 110 H 18 126/87 97 Temp Pulse Resp BP Pulse Ox 99.0 F 112 H 20 138/91 H 97 10/28/16 07:42 10/28/16 16:25 10/28/16 07:42 10/28/16 16:25 10/24/16 17:03 Temp Pulse Resp BP Pulse Ox 98.0 F 92 H 20 116/81 97 10/31/16 07:51 10/31/16 07:51 10/31/16 07:51 10/31/16 09:14 10/24/16 17:03 Temp Pulse Resp BP Pulse Ox 98.5 F 95 H 16 128/96 H 97 11/01/16 08:11 11/01/16 08:11 11/01/16 08:11 11/01/16 09:18 10/24/16 17:03 DSM 5 Symptoms Update: shortly patient is 40 years old -[place] female, long and debilitating history of schizophrenia, treatment resistant, multiple admissions to the psychiatric inpatient unit in the past, including to this hospital, for this year only it is the fourth admission to the [facility], most recent was less than two weeks ago at [facility], [facility], pt is on clozaril and Haldol Dec. PACT team SW evaluated pt at the ED , still pt was not able to contract for safety. patient went back to her regular, very superficial state, patient was saying "you are the best doctor, I had a great weekend", pt also said "I the future references, I will call my PACT team just to be on the safe side" (pt is afraid to be transferred to the [facility] and losing her apartment). no behavioral incidents, pt compliant with meds. PACT team was contacted, requested meeting, Lani will come on this . pt still delusional, erotomanic delusions that she is in intimate relationship with Mr. Alvarez (imaginary). labs submitted to the [facility] Impression: schizoaffective disorder spoke to at [facility], will not consider to accept pt spoke to Lani LARES, will have meeting in order to have plan to avoid unnecessary admissions. Medication Change: No ( ) Medical Record Reviewed: Yes (notes, vitals, labs, reports) Consults ordered or reviewed: medical consult appreciated pt was started on abx forURI Mental Status Examination - Cognitive Function Orientation: Person Memory: Impaired Attention: WNL Concentration: Poor Association: Loose Fund of Knowledge: Poor - Mood Mood: Depressed ("doing better") - Affect Affect: Flat (improving reactivity) - Speech Speech: Appropriate - Formal Thought Process Formal Thought Process: Delusions (improving) - Suicidal Ideation Suicidal Ideation: No - Homicidal Ideation Homicidal Ideation: No Goal/Treatment Plan - Goal/Treatment Plan Need for Continued Stay: Remain at risks for inpatient hospitalization, Severe depression anxiety, Discharge may exacerbated symptoms, Failed transitioning, Severe functional impairment Progress Toward Problem(s) and Goals/Treatment Plan: milieu, structure, supportive therapy clozaril 200mg am and 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
--- NOTE | 2016-11-03 08:49 | PN ---
DATE: 11/03/2016 I saw her resting comfortably in bed this morning in the psychiatric unit. She slept well last night . No complaints. She is eating. She is participating. She is currently on aspirin, Clozaril, Coge ntin, Colace, Cozaar, Feosol, Glucophage, Maalox, milk of magnesia, Norvasc, Phenergan, Tylenol, Zeti a, and Zoloft. She is very comfortable. PHYSICAL EXAMINATION: VITAL SIGNS: 97.1 temp, 91 pulse, 105/67 blood pressure, 20 respiratory rate. HEENT: Her head is atraumatic, normocephalic. HEART: Regular rate. LUNGS: Decreased breath sounds, but clear. ABDOMEN: Soft, obese. EXTREMITIES: No edema. LABORATORY DATA: She had labs on 10/26 which were good. The last blood sugar was 156. Overall, I think she is improving and doing better as per psychiatry. I understand she might be disc harged tomorrow, Monday. She is here for depression, anxiety, suicidal, schizoaffective disorder, hi gh cholesterol, diabetes. She had leukocytosis and upper respiratory infection in a smoker which I a sked her to quit. Hopefully, tomorrow she can be discharged to home as per psychiatry. Jason Contreras DO cc: [id number] TT: 11/03/2016 08:48:29 Confirmation # [id number] Dictation # [id number]
--- NOTE | 2016-11-03 15:18 | PCM.PYCHPN ---
Psychiatric Progress Note - Psychiatric Progress Note Patient seen today, length of contact: 30min Patient Chief Complaint: "PACT team is preventing me from pursuing my dreams..." Problems Identified/Issues Discussed: Suicide/ homicide prevention, past psychiatric h/o, current psychiatric symptoms , medical problems, risk/benefits and alternatives of medications, medications compliance, coping strategies, substance abuse h/o, relapse prevention, importance of follow up with psychiatrist and therapist, discharge plan. Medical Problems: HTN, diabetis, dyslipidemia Diagnostic Results: 10/26/16 07:30 10/26/16 07:30 Lab Results 10/26/16 11:15: POC Glucose (mg/dL) 183 H 10/26/16 07:30: Sodium 137, Potassium 4.0, Chloride 101, Carbon Dioxide 24, Anion Gap 16, BUN 4 L, Creatinine 0.4 L, Est GFR ( Amer) > 60, Est GFR ( Non-Af Amer) > 60, Random Glucose 167 H, Calcium 8.7, Total Bilirubin 0.3, AST 21, ALT 35, Alkaline Phosphatase 83, Total Protein 7.3, Albumin 4.0, Globulin 3.3, Albumin/Globulin Ratio 1.2 10/26/16 07:30: WBC 9.6 D, RBC 4.09, Hgb 11.8 L, Hct 34.8 L, MCV 85.1, MCH 28.9 , MCHC 33.9, RDW 15.4 H, Plt Count 292, MPV 8.4 10/26/16 07:12: POC Glucose (mg/dL) 179 H 10/25/16 21:28: POC Glucose (mg/dL) 265 H 10/25/16 16:14: POC Glucose (mg/dL) 168 H 10/25/16 11:29: POC Glucose (mg/dL) 232 H 10/25/16 07:25: POC Glucose (mg/dL) 170 H 10/25/16 07:00: Fasting Glucose 149 H 10/25/16 07:00: RPR Nonreactive 10/25/16 07:00: TSH 3rd Generation 1.31 10/25/16 07:00: Triglycerides 169 H, Cholesterol 173, LDL Cholesterol Direct 115 , HDL Cholesterol 25 L 10/24/16 21:53: POC Glucose (mg/dL) 188 H 10/24/16 12:17: Urine Opiates Screen Negative, Urine Methadone Screen Negative, Ur Barbiturates Screen Negative, Ur Phencyclidine Scrn Negative, Ur Amphetamines Screen Negative, U Benzodiazepines Scrn Negative, U Oth Cocaine Metabols Negative, U Cannabinoids Screen Negative 10/24/16 12:17: Urine Color Yellow, Urine Appearance Clear, Urine pH 7.0, Ur Specific [place] 1.010, Urine Protein Negative, Urine Glucose (UA) Negative, Urine Ketones 15 H, Urine Blood Trace-intact H, Urine Nitrate Negative, Urine Bilirubin Negative, Urine Urobilinogen 0.2, Ur Leukocyte Esterase Small H, Urine RBC 0 - 2, Urine WBC 1 - 3, Ur Epithelial Cells 4 - 5, Urine Bacteria Few 10/24/16 11:40: Alcohol, Quantitative < 10 10/24/16 11:40: Salicylates < 1 L, Acetaminophen < 10.0 L 10/24/16 11:40: Sodium 136, Potassium 3.8, Chloride 102, Carbon Dioxide 22, Anion Gap 16, BUN 10, Creatinine 0.5, Est GFR ( Amer) > 60, Est GFR (Non- Af Amer) > 60, Random Glucose 133 H, Calcium 10.1, Total Bilirubin 0.4, AST 29, ALT 38, Alkaline Phosphatase 101, Total Protein 7.9, Albumin 4.2, Globulin 3.7, Albumin/Globulin Ratio 1.1 10/24/16 11:40: WBC 12.8 H, RBC 4.29, Hgb 12.5, Hct 36.5, MCV 85.1, MCH 29.1, MCHC 34.2, RDW 15.9 H, Plt Count 317, MPV 8.5, Gran % 67.6, Lymph % (Auto) 25.6 , [place] % (Auto) 5.3, Eos % (Auto) 1.2 L, Baso % (Auto) 0.3, Gran # 8.62 H, Lymph # 3.3, [place] # 0.7 H, Eos # 0.2, Baso # 0.04 10/24/16 11:28: POC Glucose (mg/dL) 145 H Vital Signs Temp Pulse Resp BP Pulse Ox 10/26/16 16:13 104 H 133/88 10/26/16 08:34 126/86 10/26/16 07:42 98.0 F 94 H 20 126/86 10/25/16 19:17 97.2 F L 10/25/16 16:00 90 122/80 10/25/16 08:34 116/83 10/25/16 07:24 97.8 F 79 20 116/83 10/24/16 17:03 98.6 F 99 H 17 147/88 97 10/24/16 10:38 98.3 F 110 H 18 126/87 97 Temp Pulse Resp BP Pulse Ox 99.0 F 112 H 20 138/91 H 97 10/28/16 07:42 10/28/16 16:25 10/28/16 07:42 10/28/16 16:25 10/24/16 17:03 Temp Pulse Resp BP Pulse Ox 98.0 F 92 H 20 116/81 97 10/31/16 07:51 10/31/16 07:51 10/31/16 07:51 10/31/16 09:14 10/24/16 17:03 Temp Pulse Resp BP Pulse Ox 98.5 F 95 H 16 128/96 H 97 11/01/16 08:11 11/01/16 08:11 11/01/16 08:11 11/01/16 09:18 10/24/16 17:03 Temp Pulse Resp BP Pulse Ox 97.1 F L 91 H 20 105/67 97 11/03/16 07:53 11/03/16 07:53 11/03/16 07:53 11/03/16 09:25 10/24/16 17:03 DSM 5 Symptoms Update: shortly patient is 40 years old -Vincent[place] female, long and debilitating history of schizophrenia, treatment resistant, multiple admissions to the psychiatric inpatient unit in the past, including to this hospital, for this year only it is the fourth admission to the [facility], most recent was less than two weeks ago at , patient is followed by [facility] RIST team, pt is on clozaril and Haldol Dec. PACT team SW evaluated pt at the ED , still pt was not able to contract for safety. patient Was seen today with long term care social worker, Patricia from [facility] PACT team. Patient presented to be irritable, angry, patient said that she doesn't like [facility] any longer, she does not want to be seen by them in the community, patient also reported that her mother doesn't like them either. Patient refused to give consent for collateral information from the mother. Patient also reported that she feels that PACT team is preventing her from pursuing her dreams, "I want to go back to college, but you are constantly monitoring me, I don't want you anymore", pt was angry, irritable. Pt was provided emotional support and empathic listening. this literary writer suggested [place] [facility] in this case [place] team will be not following pt in the community, pt will go to the day treatment and will try to be independent. pt liked this plan and seems much calmer. meeting went well after that. no behavioral incidents, pt compliant with meds. labs submitted to the Clozaril REMS Impression: schizoaffective disorder spoke to at [facility] will not consider to accept pt spoke to Lani LARES, will have meeting in order to have plan to avoid unnecessary admissions. Medication Change: No ( ) Medical Record Reviewed: Yes (notes, vitals, labs, reports) Consults ordered or reviewed: medical consult appreciated pt was started on abx forURI Mental Status Examination - Cognitive Function Orientation: Person Memory: Impaired Attention: WNL Concentration: Poor Association: Loose Fund of Knowledge: Poor - Mood Mood: Depressed ("doing better") - Affect Affect: Flat (improving reactivity) - Speech Speech: Appropriate - Formal Thought Process Formal Thought Process: Delusions (improving) - Suicidal Ideation Suicidal Ideation: No - Homicidal Ideation Homicidal Ideation: No Goal/Treatment Plan - Goal/Treatment Plan Need for Continued Stay: Remain at risks for inpatient hospitalization, Severe depression anxiety, Discharge may exacerbated symptoms, Failed transitioning, Severe functional impairment Progress Toward Problem(s) and Goals/Treatment Plan: milieu, structure, supportive therapy clozaril 200mg am and 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 Injectable Haldol 100mg q monthly last injection was 10/19/2016 cogentin 1mg po bid for EPS Medical consult appreciated Collateral information appreciated We'll monitor closely zoloft 50mg daily for depression PACT team meeting took place 11/03/16 DTP afte d/c one month pt will go there and PACT will not monitor pt in the community Estimated Date of D/C: 11/08/16 (DTP f/u appt needs to be shcedule)
--- NOTE | 2016-11-04 10:12 | PN ---
DATE: 11/04/2016 I see her resting comfortably in bed. She slept well. She tells me she is feeling well. She is eat ing and participating. She is on aspirin, Clozaril, Cogentin, Colace, Cozaar, Feosol, Glucophage, milk of magnesia, Maalox, Norvasc, Phenergan, Tylenol, Zetia and Zoloft. PHYSICAL EXAMINATION: VITAL SIGNS: Temp 97.5, 91 pulse, 116/76 blood pressure, 20 respiratory rate. HEENT: Her head is atraumatic, normocephalic. HEART: Regular rate. LUNGS: Decreased breath sounds, but clear to auscultation. ABDOMEN: Soft, obese, nontender. EXTREMITIES: No edema. LABORATORY DATA: Done on the and she did well. Last blood sugar was 178. She is being seen by psychiatry. They are not sure if she is being discharged today or not. They wi ll make a day decision. She is here for depression, anxiety, hypertension, diabetes, high cholesterol, leukocytosis, upper re spiratory infection, she is a smoker, schizoaffective disorder, suicidal. Jason Contreras DO cc: [id number] TT: 11/04/2016 09:31:06 Confirmation # [id number] Dictation # [id number] en
--- NOTE | 2016-11-04 17:00 | PCM.PYCHPN ---
Psychiatric Progress Note - Psychiatric Progress Note Patient seen today, length of contact: 30min Patient Chief Complaint: "I am fine..." Problems Identified/Issues Discussed: Suicide/ homicide prevention, past psychiatric h/o, current psychiatric symptoms , medical problems, risk/benefits and alternatives of medications, medications compliance, coping strategies, substance abuse h/o, relapse prevention, importance of follow up with psychiatrist and therapist, discharge plan. Medical Problems: HTN, diabetis, dyslipidemia Diagnostic Results: 10/26/16 07:30 10/26/16 07:30 Lab Results 10/26/16 11:15: POC Glucose (mg/dL) 183 H 10/26/16 07:30: Sodium 137, Potassium 4.0, Chloride 101, Carbon Dioxide 24, Anion Gap 16, BUN 4 L, Creatinine 0.4 L, Est GFR ( Amer) > 60, Est GFR ( Non-Af Amer) > 60, Random Glucose 167 H, Calcium 8.7, Total Bilirubin 0.3, AST 21, ALT 35, Alkaline Phosphatase 83, Total Protein 7.3, Albumin 4.0, Globulin 3.3, Albumin/Globulin Ratio 1.2 10/26/16 07:30: WBC 9.6 D, RBC 4.09, Hgb 11.8 L, Hct 34.8 L, MCV 85.1, MCH 28.9 , MCHC 33.9, RDW 15.4 H, Plt Count 292, MPV 8.4 10/26/16 07:12: POC Glucose (mg/dL) 179 H 10/25/16 21:28: POC Glucose (mg/dL) 265 H 10/25/16 16:14: POC Glucose (mg/dL) 168 H 10/25/16 11:29: POC Glucose (mg/dL) 232 H 10/25/16 07:25: POC Glucose (mg/dL) 170 H 10/25/16 07:00: Fasting Glucose 149 H 10/25/16 07:00: RPR Nonreactive 10/25/16 07:00: TSH 3rd Generation 1.31 10/25/16 07:00: Triglycerides 169 H, Cholesterol 173, LDL Cholesterol Direct 115 , HDL Cholesterol 25 L 10/24/16 21:53: POC Glucose (mg/dL) 188 H 10/24/16 12:17: Urine Opiates Screen Negative, Urine Methadone Screen Negative, Ur Barbiturates Screen Negative, Ur Phencyclidine Scrn Negative, Ur Amphetamines Screen Negative, U Benzodiazepines Scrn Negative, U Oth Cocaine Metabols Negative, U Cannabinoids Screen Negative 10/24/16 12:17: Urine Color Yellow, Urine Appearance Clear, Urine pH 7.0, Ur Specific [place] 1.010, Urine Protein Negative, Urine Glucose (UA) Negative, Urine Ketones 15 H, Urine Blood Trace-intact H, Urine Nitrate Negative, Urine Bilirubin Negative, Urine Urobilinogen 0.2, Ur Leukocyte Esterase Small H, Urine RBC 0 - 2, Urine WBC 1 - 3, Ur Epithelial Cells 4 - 5, Urine Bacteria Few 10/24/16 11:40: Alcohol, Quantitative < 10 10/24/16 11:40: Salicylates < 1 L, Acetaminophen < 10.0 L 10/24/16 11:40: Sodium 136, Potassium 3.8, Chloride 102, Carbon Dioxide 22, Anion Gap 16, BUN 10, Creatinine 0.5, Est GFR ( Amer) > 60, Est GFR (Non- Af Amer) > 60, Random Glucose 133 H, Calcium 10.1, Total Bilirubin 0.4, AST 29, ALT 38, Alkaline Phosphatase 101, Total Protein 7.9, Albumin 4.2, Globulin 3.7, Albumin/Globulin Ratio 1.1 10/24/16 11:40: WBC 12.8 H, RBC 4.29, Hgb 12.5, Hct 36.5, MCV 85.1, MCH 29.1, MCHC 34.2, RDW 15.9 H, Plt Count 317, MPV 8.5, Gran % 67.6, Lymph % (Auto) 25.6 , [place] % (Auto) 5.3, Eos % (Auto) 1.2 L, Baso % (Auto) 0.3, Gran # 8.62 H, Lymph # 3.3, [place] # 0.7 H, Eos # 0.2, Baso # 0.04 10/24/16 11:28: POC Glucose (mg/dL) 145 H Vital Signs Temp Pulse Resp BP Pulse Ox 10/26/16 16:13 104 H 133/88 10/26/16 08:34 126/86 10/26/16 07:42 98.0 F 94 H 20 126/86 10/25/16 19:17 97.2 F L 10/25/16 16:00 90 122/80 10/25/16 08:34 116/83 10/25/16 07:24 97.8 F 79 20 116/83 10/24/16 17:03 98.6 F 99 H 17 147/88 97 10/24/16 10:38 98.3 F 110 H 18 126/87 97 Temp Pulse Resp BP Pulse Ox 99.0 F 112 H 20 138/91 H 97 10/28/16 07:42 10/28/16 16:25 10/28/16 07:42 10/28/16 16:25 10/24/16 17:03 Temp Pulse Resp BP Pulse Ox 98.0 F 92 H 20 116/81 97 10/31/16 07:51 10/31/16 07:51 10/31/16 07:51 10/31/16 09:14 10/24/16 17:03 Temp Pulse Resp BP Pulse Ox 98.5 F 95 H 16 128/96 H 97 11/01/16 08:11 11/01/16 08:11 11/01/16 08:11 11/01/16 09:18 10/24/16 17:03 Temp Pulse Resp BP Pulse Ox 97.1 F L 91 H 20 105/67 97 11/03/16 07:53 11/03/16 07:53 11/03/16 07:53 11/03/16 09:25 10/24/16 17:03 Temp Pulse Resp BP Pulse Ox 97.5 F L 107 H 20 133/98 H 97 11/04/16 07:35 11/04/16 16:17 11/04/16 07:35 11/04/16 16:17 10/24/16 17:03 DSM 5 Symptoms Update: shortly patient is 40 years old -Vietnamese female, long and debilitating history of schizophrenia, treatment resistant, multiple admissions to the psychiatric inpatient unit in the past, including to this hospital, for this year only it is the fourth admission to the [facility], most recent was less than two weeks ago at [facility], patient is followed by [facility] RIST team, pt is on clozaril and Haldol Dec. PACT team SW evaluated pt at the ED , still pt was not able to contract for safety. patient Was seen today in her room, pt wears big, curly wig today which gives pt weird look, pt said her mother brought it for her. pt presented to be disorganized, superficial, yesterday pt was making statements which not related to the topic of the conversation, for the past three days pt presented to be more disorganized than usual, will increase clozaril. treatment fernandez meeting took place November 03/2017: with mental health social worker, Patricia from [facility] PACT team, pt and this underwriter. plan: DTP at [facility], in this case PACT team will be not following pt in the community (only on MondayNovember 07), pt will go to the day treatment and will try to be independent. spoke to at [facility], last week, will not consider to accept pt no behavioral incidents, pt compliant with meds. labs submitted to the Clozaril REMS Impression: schizoaffective disorder Medication Change: No ( ) Medical Record Reviewed: Yes (notes, vitals, labs, reports) Mental Status Examination - Cognitive Function Orientation: Person Memory: Impaired Attention: WNL Concentration: Poor Association: Loose Fund of Knowledge: Poor - Mood Mood: Depressed ("doing better") - Affect Affect: Flat (improving reactivity) - Speech Speech: Appropriate - Formal Thought Process Formal Thought Process: Delusions (improving) - Suicidal Ideation Suicidal Ideation: No - Homicidal Ideation Homicidal Ideation: No Goal/Treatment Plan - Goal/Treatment Plan Need for Continued Stay: Remain at risks for inpatient hospitalization, Severe depression anxiety, Discharge may exacerbated symptoms, Failed transitioning, Severe functional impairment Progress Toward Problem(s) and Goals/Treatment Plan: milieu, structure, supportive therapy 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 Injectable Haldol 100mg q monthly last injection was 10/19/2016, next 11/16/16 cogentin 1mg po bid for EPS Medical consult appreciated Collateral information appreciated We'll monitor closely zoloft 50mg daily for depression PACT team meeting took place 11/03/16 DTP afte d/c one month pt will go there and PACT will not monitor pt in the community pt needs to be d/c on Monday, PACT will f/u on her on Monday, pt will go to the DTP on Monday Estimated Date of D/C: 11/07/16 [facility]
--- NOTE | 2016-11-05 09:14 | PCM.PYCHPN ---
Psychiatric Progress Note - Psychiatric Progress Note Patient seen today, length of contact: 25 min Patient Chief Complaint: "doing better" Problems Identified/Issues Discussed: I reviewed recent notes and met with patient at bedside. Patient remains alert , oriented x3, superficially bright and cooperative. Indicates that she is "doing better, so-so". She denies recurrence of hallucinations or suicidal thoughts. Patient doesn't appear to be actively responding to internal stimuli and she is less internally preoccupied. Affect is flat but she is not overtly bizarre. She has been eating and sleeping fairly well. Presently patient denies having any new discomfort or pain. Nursing notes also indicates that patient has been in good control and generally pleasant on the unit. Polite and interactive. Observed singing on the unit similar to her many prior admissions. There were no behavioral issues over the weekend . Diagnostic Results: schizoaffective disorder Medication Change: No ( ) Medical Record Reviewed: Yes (notes, vitals, labs, reports) Mental Status Examination - Cognitive Function Orientation: Person Memory: Impaired Attention: WNL Concentration: Poor Association: Loose Fund of Knowledge: Poor - Mood Mood: Depressed ("doing better, so-so") - Affect Affect: Flat (improving reactivity) - Speech Speech: Appropriate - Formal Thought Process Formal Thought Process: Delusions (improving) - Suicidal Ideation Suicidal Ideation: No - Homicidal Ideation Homicidal Ideation: No Goal/Treatment Plan - Goal/Treatment Plan Need for Continued Stay: Remain at risks for inpatient hospitalization, Severe depression anxiety, Discharge may exacerbated symptoms, Failed transitioning, Severe functional impairment Progress Toward Problem(s) and Goals/Treatment Plan: * c/w current tx and plan * No new weekend labs * Vitals reviewed and noted below: Selected Entries 11/04/16 11/04/16 11/04/16 07:35 08:36 16:17 Temperature 97.5 F L Pulse Rate 91 H 107 H Respiratory 20 Rate Blood Pressure 116/76 116/76 133/98 H Estimated Date of D/C: 11/07/16 (DTP f/u appt needs to be shcedule)
--- NOTE | 2016-11-06 08:47 | PCM.PYCHPN ---
Psychiatric Progress Note - Psychiatric Progress Note Patient seen today, length of contact: 25 min Patient Chief Complaint: "doing better" Problems Identified/Issues Discussed: I reviewed recent notes and met with patient at bedside. Patient remains alert , oriented x3, superficially bright and cooperative. Indicates that she is "feeling good" and looking forward to discharge this week. She denies recurrence of hallucinations or suicidal thoughts. Patient doesn't appear to be actively responding to internal stimuli and she is less internally preoccupied. Affect is - little flat but she is not overtly bizarre. She has been eating and sleeping fairly well. Presently patient denies having any new discomfort or pain. Nursing notes also indicates that patient has been in good control and generally pleasant on the unit. Polite and interactive. Observed singing on the unit similar to her many prior admissions. There were no behavioral issues over the weekend . Diagnostic Results: schizoaffective disorder Medication Change: No ( ) Medical Record Reviewed: Yes (notes, vitals, labs, reports) Mental Status Examination - Cognitive Function Orientation: Person Memory: Impaired Attention: WNL Concentration: Poor Association: Loose Fund of Knowledge: Poor - Mood Mood: Depressed ("better") - Affect Affect: Flat (improving reactivity) - Speech Speech: Appropriate - Formal Thought Process Formal Thought Process: Delusions (improving) - Suicidal Ideation Suicidal Ideation: No - Homicidal Ideation Homicidal Ideation: No Goal/Treatment Plan - Goal/Treatment Plan Need for Continued Stay: Remain at risks for inpatient hospitalization, Severe depression anxiety, Discharge may exacerbated symptoms, Failed transitioning, Severe functional impairment Progress Toward Problem(s) and Goals/Treatment Plan: * c/w current tx and plan * No new weekend labs * Vitals reviewed and noted below: Selected Entries 11/04/16 11/04/16 11/04/16 07:35 08:36 16:17 Temperature 97.5 F L Pulse Rate 91 H 107 H Respiratory 20 Rate Blood Pressure 116/76 116/76 133/98 H 11/05/16 11/05/16 09:58 17:03 Temperature Pulse Rate 97 H Respiratory Rate Blood Pressure 136/91 H 119/79 Estimated Date of D/C: 11/07/16 (DTP f/u appt needs to be shcedule)
--- NOTE | 2016-11-06 14:08 | PN ---
DATE: 11/06/2016 The patient seen and examined at bedside. Currently, is comfortable. Does not have any chest pain, no shortness of breath, no nausea, no vomiting. She is tolerating her current treatment plan at this point. PHYSICAL EXAMINATION: VITAL SIGNS: Blood pressure 124/84, temperature is 98.2, pulse rate of 97, O2 saturation is 98% on r oom air. HEENT: Normocephalic, atraumatic. Pale conjunctivae. CARDIOVASCULAR: Regular rate and rhythm. S1, S2 appreciated. No S3 noted. LUNGS: Bilateral air entry is positive, but decreased at the base, but no wheezes or rhonchi. ABDOMEN: Nondistended, nontender, but it is positive for obesity. EXTREMITIES: Peripheral pulses +2 with no pitting edema. Labs that were done were noted at this point. ASSESSMENT: At this point: 1. Depression. 2. Bipolar disorder. 3. Hypertension. 4. Diabetes mellitus. PLAN: At this time, we will continue her aspirin. We will continue her blood pressure medication as well as her metformin and we will continue psychiatric treatment at this point. She is continuing t o do group therapy and will be continued to be seen by Dr. Brar. Ho Moody MD cc: [id number] TT: 11/06/2016 14:08:06 Confirmation # [id number] Dictation # [id number] en
[2016-11-06 16:30] VITALS: PULSE 105; RESP 16; TEMP 97.2
[2016-11-07 07:27] LABS: ADD MANUAL DIFF? NO
[2016-11-07 07:34] LABS: BASO # 0.06 K/mm3 (0.0-2.0); BASO % 0.6 % (0.0-3.0); EOS # 0.2 (0.0-0.7); EOS % 1.7 % (1.5-5.0); GRAN # 4.81 (1.4-6.5); GRAN % 46.8 % (50.0-68.0); HEMATOCRIT 34.6 % (36.0-48.0); LYMPH # 4.5 (1.2-3.4); LYMPH % 43.6 % (22.0-35.0); MEAN CELL VOLUME 84.4 fL (80.0-105.0); MEAN CORPUSCULAR HGB CONC 33.2 g/dl (31.0-37.0); MONO # 0.8 (0.1-0.6); MONO % 7.3 % (1.0-6.0); PLATELET COUNT 515 10^3/uL (120.0-450.0); RED CELL DISTRIBUTION WIDTH 15.4 % (11.5-14.5); WHITE BLOOD COUNT 10.3 10^3/ul (4.5-11.0)
[2016-11-07 09:02] VITALS: BP 125/88
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
== END 2016-11-07 13:03 | disposition home or self-care (01) | DRG 885 ==
LOC: ED 10:28 → ERH 16:00 → PSYC 18:57
PROVIDERS: ADMIT Psychiatry & Neurology Psychiatry; ATTEND Psychiatry & Neurology Psychiatry
DX: F25.0 Schizoaffective disorder, bipolar type (principal); R45.851 Suicidal ideations; E11.9 Type 2 diabetes mellitus without complications; N39.0 Urinary tract infection, site not specified; F41.9 Anxiety disorder, unspecified; I10 Essential (primary) hypertension; E78.00 Pure hypercholesterolemia, unspecified; E78.5 Hyperlipidemia, unspecified; F17.210 Nicotine dependence, cigarettes, uncomplicated; J06.9 Acute upper respiratory infection, unspecified; Z79.82 Long term (current) use of aspirin; Z79.84 Long term (current) use of oral hypoglycemic drugs

== ENCOUNTER 2017-01-03 12:05 | Inpatient (IN) | payer MEDICARE, MEDICAID ==
[2017-01-03 12:17] VITALS: BMI 27.3
--- NOTE | 2017-01-03 12:20 | ED PDOC ---
Arrival/HPI - General Time Seen by Provider: 01/03/17 12:14 - History of Present Illness Narrative History of Present Illness (Text): 01/03/17 12:18 Patient is a 41 y/o F with hx of schizophrenia, presenting with complaint of "I want to kill myself." Patient reports that she has a plan to cut herself. Denies HI. Reports AH and VH. Denies somatic complaints. Past Medical History - Provider Review Nursing Documentation Reviewed: Yes - Past History Past History: Non-Contributing - Infectious Disease Hx of Infectious Diseases: None - Tetanus Immunization Tetanus Immunization: Unknown - Cardiac Hx Cardiac Disorders: No Hx Hypertension: Yes - Pulmonary Hx Tuberculosis: No - Neurological HX Cerebrovascular Accident: No Hx Seizures: Yes (age 14) - HEENT Hx HEENT Disorder: No - Renal Hx Renal Disorder: No - Endocrine/Metabolic Hx Endocrine Disorders: Yes Hx Diabetes Mellitus Type 2: Yes - Hematological/Oncological Hx Cancer: No - Integumentary Hx Dermatological Disorder: No - Musculoskeletal/Rheumatological Hx Musculoskeletal Disorders: No Hx Falls: No - Gastrointestinal Hx Gastrointestinal Disorders: No - Genitourinary/Gynecological Hx Sexually Transmitted Diseases: No - Psychiatric Hx Bipolar Disorder: Yes Hx Depression: Yes Hx Schizophrenia: Yes Hx Substance Use: No - Anesthesia Hx Anesthesia: No - Suicidal Assessment Feels Threatened In Home Enviroment: No Family/Social History - Physician Review Nursing Documentation Reviewed: Yes Family/Social History: No Known Family HX Smoking Status: Light Smoker < 10 Cigarettes Daily Hx Alcohol Use: No Hx Substance Use: No Hx Substance Use Treatment: No Allergies/Home Meds Allergies/Adverse Reactions: Allergies No Known Allergies Allergy (Verified 01/03/17 12:36) Home Medications: Home Meds Medication Instructions Recorded Confirmed Unobtainable 01/03/17 01/03/17 Review of Systems - Physician Review All systems were reviewed & negative as marked: Yes - Review of Systems Constitutional: absent: Fatigue, Weight Change, Fevers Eyes: absent: Vision Changes ENT: absent: Hearing Changes Respiratory: absent: SOB, Cough, Sputum, Wheezing Cardiovascular: absent: Chest Pain, Edema Gastrointestinal: absent: Abdominal Pain, Constipation, Diarrhea, Nausea, Vomiting Genitourinary Female: absent: Dysuria Musculoskeletal: absent: Arthralgias Psychiatric: Depression, Suicidal Ideation Physical Exam Vital Signs Reviewed: Yes Vital Signs Temp Pulse Resp BP Pulse Ox 01/03/17 15:28 123/80 01/03/17 12:38 98.4 F 98 H 16 128/74 100 Temperature: Afebrile Blood Pressure: Normal Pulse: Regular Respiratory Rate: Normal Appearance: Positive for: Well-Appearing, Non-Toxic, Comfortable Pain Distress: None Mental Status: Positive for: Alert and Oriented X 3 - Systems Exam Head: Present: Atraumatic, Normocephalic Pupils: Present: PERRL Neck: Present: Normal Range of Motion Respiratory/Chest: Present: Clear to Auscultation, Good Air Exchange. No: Respiratory Distress, Accessory Muscle Use Cardiovascular: Present: Regular Rate and Rhythm, Normal S1, S2. No: Murmurs Abdomen: No: Tenderness, Distention Upper Extremity: Present: Normal Inspection Lower Extremity: Present: Normal Inspection Skin: Present: Warm, Dry. No: Rashes Psychiatric: Present: Alert, Oriented x 3, Anxious, Depressed Mood, Suicidal Ideation, Hallucinations Medical Decision Making ED Course and Treatment: 01/03/17 12:20 Will medically clear for psych evaluation EKG shows sinus tachycardia at 105 BPM with no changes from prior on 10/24/16. Interpreted by me. 01/03/17 14:38 Patient evaluated by PES fili Awan. Patient followed by pat team at [facility]. Patient will be evaluated by [facility] screener for intermediate psychiatric placement. If refused by [facility] Dr. Brar agrees with admission to [place]. Report Date : 01/03/2017 15:48:26 Procedure: Chest xray Dictator : Savannah Frederick V. IMPRESSION: No interval infiltrate. Probable top-normal heart size. No interval pathology appreciated 01/03/17 16:31 Repeat EKG shows NSR at 97bpm. 01/03/17 16:39 Cxray shows no interval change. Labs grossly normal, except for mild hyperkalemia with replacement given. UA shows hematuria, but patient recently finished menses. Denies flank pain or dysuria. UDS and etoh reviewed. Patient medically cleared for psychiatric admission. 01/03/17 18:54 Patient screened by [facility] and evaluate by PAC team. Dr. Brar accepted patient for admission - Lab Interpretations Lab Results: 01/03/17 12:30 01/03/17 12:30 Lab Results 01/03/17 15:50: POC Glucose (mg/dL) 152 H 01/03/17 13:50: Urine Opiates Screen Negative, Urine Methadone Screen Negative, Ur Barbiturates Screen Negative, Ur Phencyclidine Scrn Negative, Ur Amphetamines Screen Negative, U Benzodiazepines Scrn Negative, U Oth Cocaine Metabols Negative, U Cannabinoids Screen Negative 01/03/17 13:50: Urine Color Yellow, Urine Appearance Sl cloudy, Urine pH 6.0, Ur Specific [place] 1.025, Urine Protein Trace H, Urine Glucose (UA) Negative, Urine Ketones Trace H, Urine Blood Large H, Urine Nitrate Negative, Urine Bilirubin Negative, Urine Urobilinogen 0.2, Ur Leukocyte Esterase Negative, Urine RBC 15 - 20, Urine WBC 0 - 2, Ur Epithelial Cells 10 - 12, Urine Bacteria Trace 01/03/17 12:30: Alcohol, Quantitative < 10 01/03/17 12:30: Sodium 141, Potassium 3.4 L, Chloride 106, Carbon Dioxide 21, Anion Gap 17, BUN 7, Creatinine 0.4 L, Est GFR ( Amer) > 60, Est GFR (Non -Af Amer) > 60, Random Glucose 166 H, Calcium 9.3, Total Bilirubin 0.3, AST 22, ALT 38, Alkaline Phosphatase 108, Total Protein 7.7, Albumin 4.4, Globulin 3.3, Albumin/Globulin Ratio 1.3 01/03/17 12:30: WBC 7.9 D, RBC 4.12, Hgb 11.6 L, Hct 34.1 L, MCV 82.8, MCH 28.2 , MCHC 34.0, RDW 16.3 H, Plt Count 358, MPV 8.3, Gran % 56.4, Lymph % (Auto) 34.6, [place] % (Auto) 7.5 H, Eos % (Auto) 1.1 L, Baso % (Auto) 0.4, Gran # 4.42, Lymph # 2.7, [place] # 0.6, Eos # 0.1, Baso # 0.03 I have reviewed the lab results: Yes - RAD Interpretation Radiology Orders: 01/03/17 12:17 CHEST PORTABLE [RAD] Stat - Medication Orders Current Medication Orders: Amlodipine Besylate (Norvasc) 10 mg PO DAILY [facility] Aspirin (Ecotrin) 81 mg PO DAILY [facility] Last Admin: 01/03/17 15:26 Dose: 81 mg Benztropine Mesylate (Cogentin) 1 mg PO AMHS NITIN Clozapine (Clozaril) 250 mg PO DAILY NITIN PRN Reason: Protocol Clozapine (Clozaril) 400 mg PO HS NITIN PRN Reason: Protocol Docusate Sodium (Colace) 100 mg PO BID NITIN Ezetimibe (Zetia) 10 mg PO DAILY NITIN Last Admin: 01/03/17 15:54 Dose: 10 mg Losartan Potassium (Cozaar) 100 mg PO DAILY NITIN Last Admin: 01/03/17 15:25 Dose: Polysaccharide Iron Complex (Ferrex-150) 150 mg PO DAILY NITIN Sertraline HCl (Zoloft) 50 mg PO DAILY [facility] Last Admin: 01/03/17 15:55 Dose: 50 mg Discontinued Medications Metformin HCl (Glucophage) 1,000 mg PO BID STA Stop: 01/03/17 14:33 Last Admin: 01/03/17 15:54 Dose: 1,000 mg Potassium Chloride (K-Dur 20 Meq Er Tab) 40 meq PO STAT STA Stop: 01/03/17 16:39 Disposition/Present on Arrival - Present on Arrival Any Indicators Present on Arrival: No History of DVT/PE: No History of Uncontrolled Diabetes: No Urinary Catheter: No History Surgical Site Infection Following: None - Disposition Have Diagnosis and Disposition been Completed?: Yes Diagnosis: Schizophrenia, acute Disposition: HOSPITALIZED Disposition Time: 18:54 Patient Plan: Admission Condition: FAIR Referrals: PCP,NO [Primary Care Provider] - Follow up with primary
[2017-01-03 12:42] LABS: BASO # 0.03 K/mm3 (0.0-2.0); BASO % 0.4 % (0.0-3.0); EOS # 0.1 (0.0-0.7); EOS % 1.1 % (1.5-5.0); GRAN # 4.42 (1.4-6.5); GRAN % 56.4 % (50.0-68.0); HEMATOCRIT 34.1 % (36.0-48.0); LYMPH # 2.7 (1.2-3.4); LYMPH % 34.6 % (22.0-35.0); MEAN CELL VOLUME 82.8 fl (80.0-105.0); MEAN CORPUSCULAR HEMOGLOBIN 28.2 pg (25.0-35.0); MEAN PLATELET VOLUME 8.3 fl (7.0-11.0); MONO # 0.6 (0.1-0.6); MONO % 7.5 % (1.0-6.0); RED CELL DISTRIBUTION WIDTH 16.3 % (11.5-14.5); WHITE BLOOD COUNT 7.9 10^3/ul (4.5-11.0)
[2017-01-03 12:55] LABS: ALB/GLOB RATIO 1.3 (1.1-1.8); ALKALINE PHOSPHATASE 108 U/L (38-133); ALT/SGPT 38 U/L (7-56); AST/SGOT 22 U/L (15-39); BILIRUBIN,TOTAL 0.3 mg/dL (0.2-1.3); BLOOD UREA NITROGEN 7 mg/dL (7-21); CALCIUM 9.3 mg/dL (8.4-10.5); CARBON DIOXIDE 21 mmol/L (21-33); CHLORIDE 106 mmol/L (98-107); GFR AFRICAN-AMERICAN > 60; GLUCOSE,RANDOM 166 mg/dL (70-110); POTASSIUM 3.4 mmol/L (3.6-5.0); SODIUM 141 mmol/L (132-148); TOTAL PROTEIN 7.7 g/dL (5.8-8.3)
[2017-01-03 14:10] LABS: URINE BILIRUBIN NEGATIVE (NEGATIVE); URINE BLOOD LARGE (NEGATIVE); URINE GLUCOSE (UA) NEGATIVE (NEGATIVE); URINE KETONE TRACE mg/dL (NEGATIVE); URINE LEUKOCYTE ESTERASE NEGATIVE Leu/uL (NEGATIVE); URINE PROTEIN TRACE mg/dL (<30 mg/dL); URINE UROBILINOGEN 0.2 E.U./dL (<1 E.U./dL)
[2017-01-03 14:14] LABS: URINE APPEARANCE SL CLOUDY (CLEAR); URINE COLOR YELLOW (YELLOW)
[2017-01-03 14:19] LABS: URINE BACTERIA TRACE (NEG); URINE RBC 15 - 20 /hpf (0-2); URINE WBC 0 - 2 /hpf (0-6)
--- NOTE | 2017-01-03 14:39 | CP.PCM.PCO ---
Addendum Addendum: 01/03/17 14:35 d/w PACT team Lani LI meds were confirmed all meds resumed as per D/c plan from the most recent admission, will initiate [facility] [place] [place] screening and consensual admission for the extermination supervisor if pt will be not committed, pt will be admitted to the psych [facility] D/w Dr.Katsetos Santana#[phone] 01/03/17 01/03/17 14:38
--- NOTE | 2017-01-03 15:50 | RAD ---
HISTORY: psych COMPARISON: 08/25/2016 FINDINGS: LUNGS: No active pulmonary disease. PLEURA: No significant pleural effusion identified, no pneumothorax apparent. CARDIOVASCULAR: Probable top-normal heart size Top-normal central pulmonary vasculature OSSEOUS STRUCTURES: No significant abnormalities. VISUALIZED UPPER ABDOMEN: Normal. OTHER FINDINGS: None. IMPRESSION: No interval infiltrate. Probable top-normal heart size. No interval pathology appreciated
[2017-01-03] MEDS ORDERED: Potassium Chloride 20 mEq ER Tab PO STA (16:38)
--- NOTE | 2017-01-03 19:07 | CARD ---
APPROVED REPORT EKG Measurement Heart [id number] 144P36 [id number] <Conclusion> Sinus tachycardia Left ventricular hypertrophy consider lateral ischemia Abnormal ECG
[2017-01-03] MEDS ORDERED: Alum-Mag Hydrox-Simethicone Susp (30 mL) PO PRN (22:02)
[2017-01-03] MEDS ORDERED: Magnesium Hydroxide Susp 30 ml UD PO PRN (22:02)
--- NOTE | 2017-01-04 01:07 | PCM.BM ---
<James Whitney C - Last Filed: 01/04/17 01:38> Treatment Plan Problems - Problems identified on initial assessmt HEARING VOICES Date Initiated: 01/03/17 Time Initiated: 22:00 Assessment reference: NA Status: Active SUICIDAL IDEATION Date Initiated: 01/03/17 Time Initiated: 22:00 Assessment reference: NA Status: Active Treatment assets and liabiliti Patient Assests: adapts well, cooperative, educated, motivated, self-reliant, ADL independent, good support system, negotiates basic needs, financial stabiity , cognitively intact, good interpersonal skills Patient Liabilities: live alone, financial problems, poor support system, dietary restrictions, medical problems - Milieu Protocol Maintain good personal hygiene: daily Encourage regular showers, every shift Remind patient to perform daily oral care, every shift Assist patient to perform ADL's Maintain personal safety: every shift Educate patient to report safety concerns to staff, every shift Monitor environment for contraband/sharps Medication safety: Monitor for expected outcome, potential side effects: every shift, Assess barriers to learning: every shift, Assess readiness for medication education: every shift Family Contact Family involvement: Fammary/NICOLE not involved Family contact: Patient agrees to contact, Family has been contacted by patient Discharge/Continuing Care - Education Needs Education Needs: Patient Medication, Patient Diagnosis/Disease Process, Patient Coping Skills, Patient Placement options, Patient Activities of Daily Living, Patient Nutrition, Patient Health Practices/Safety - Discharge Discharge Criteria: Tolerates medication w/o severe side effects, Free of Suicidal thoughts, Free of Homicidal thoughts, Free of paranoid thoughts, Normal sleep pattern <Zonia José A - Last Filed: 01/04/17 16:40> Treatment Plan Problems - Problems identified on initial assessmt HEARING VOICES Date Initiated: 01/03/17 Time Initiated: 22:00 Assessment reference: NA Status: Active SUICIDAL IDEATION Date Initiated: 01/03/17 Time Initiated: 22:00 Assessment reference: NA Status: Active DEPRESSION Date Initiated: 01/03/17 Time Initiated: 22:00 Assessment reference: NA Status: Active - Diagnosis (1) Schizoaffective disorder, bipolar type Status: Acute Interventions: 01/04/17 16:41 Psychoeducation/psychotherapy Psychopharmacology/adjustment of medications as needed/ monitoring possible side effects Evaluate pt on daily basis Compliance with medications and follow up appointments Long acting medication if pt is noncompliant with pill form Suicide and homicide risk assessment and prevention, coping strategies, safety plan Relapse prevention Reduction of symptoms Improve functional status Possible assertive community treatment Cognitive behavioral therapy Family intervention Possible social skill training as outpatient Family Contact - Outside Agency [facility] Care involvment: Following patient during stay Agency contact name: [facility] Agency contact number: [phone] <Raisa Miller Y - Last Filed: 01/06/17 11:14>
--- NOTE | 2017-01-04 01:21 | CON ---
DATE: HISTORY OF PRESENT ILLNESS: I know Gato well from many other emergency room and psychiatric visits. She is a 41-year-old -[place] female who presents with complaints of depression and I want to kill myself kind of thoughts. She attempted to cut herself. She is put on , the psychiatric floor. PAST MEDICAL HISTORY: Schizophrenia, hypertension, seizures, diabetes, depression. FAMILY HISTORY: There is hypertension in the family. SOCIAL HISTORY: She smokes cigarettes. No alcohol. No drugs. ALLERGIES: NO KNOWN DRUG ALLERGIES. MEDICATIONS: She takes multiple medications. See the MAR. REVIEW OF SYSTEMS: She has no vision changes, hearing changes, no sore throat, no chest pain at this time, no palpitations or shortness of breath. No coughing. No sputum. No abdominal pain or constipation, diarrhea, nausea, vomiting. No problems urinating. No back pains or joint aches. She has depression and she is suicidal. PHYSICAL EXAMINATION: GENERAL: At this time, sitting on the bed in the room in the psychiatric floor. She is well appearing, nontoxic and comfortable talking to me very calmly. Alert and oriented x3, but telling me she is depressed. VITAL SIGNS: She has 98.4 temperature, 98 pulse, 16 respiratory rate, 120/74 blood pressure, 100% O2 sat on room air. HEENT: Head is atraumatic, normocephalic. Extraocular muscles intact. NECK: Supple. Throat is moist. Thyroid midline. No appreciable palpable lymphadenopathy. HEART: Regular rate. Normal S1 and S2. LUNGS: Clear to auscultation bilaterally. ABDOMEN: Soft, nontender, positive bowel sounds. EXTREMITIES: No edema. SKIN: For the most part intact. No rash. No cuts. No ulcers. NEUROLOGIC: Alert and oriented x3. Cranial nerves II through XII grossly intact. GCS is 15. Extraocular muscles are intact. She could follow my finger in the H pattern. She can close her eyes tight. She could smile. She could frown. She can stick her tongue up midline. She will raise her arms overhead. LABORATORY DATA: She had multiple tests. She had a chest x-ray which is okay. EKG, which is okay. She has a 7.9 white count, 11.6 hemoglobin, 34.1 hematocrit with 358 platelets. Sodium 141, potassium 3.4. He was placed in the emergency room. BUN 7, creatinine 0.4, GFR is greater than 60. Sugar is 162, calcium is 9.3, total bilirubin is 0.38. AST 22, ALT is 38, alkaline phosphatase is 108, total protein is 7.7, albumin is 4.4, globulin is 3.3. Urine shows large blood, trace bacteria. Toxicology is completely normal. She will be put on Clozaril, Cogentin, Colace, Cozaar for the blood pressure, iron for anemia, Glucophage and insulin coverage for diabetes, potassium replacement, Norvasc for hypertension. I will order labs for tomorrow morning. Check her potassium. Hopefully she will improve mentally and change her depression and suicidal thoughts. Hopefully she will improve with schizophrenia. We will keep an eye on the diabetes, potassium and blood pressure. Jaosn Contreras DO
[2017-01-04 07:54] LABS: HEMATOCRIT 33.3 % (36.0-48.0); MEAN CORPUSCULAR HEMOGLOBIN 28.2 pg (25.0-35.0); MEAN CORPUSCULAR HGB CONC 33.9 g/dl (31.0-37.0); MEAN PLATELET VOLUME 8.2 fl (7.0-11.0); RED CELL DISTRIBUTION WIDTH 16.4 % (11.5-14.5); WHITE BLOOD COUNT 9.6 10^3/ul (4.5-11.0)
[2017-01-04 08:00] LABS: ALB/GLOB RATIO 1.3 (1.1-1.8); ALKALINE PHOSPHATASE 85 U/L (38-133); ALT/SGPT 34 U/L (7-56); AST/SGOT 25 U/L (15-39); BILIRUBIN,TOTAL 0.2 mg/dL (0.2-1.3); BLOOD UREA NITROGEN 6 mg/dL (7-21); CARBON DIOXIDE 24 mmol/L (21-33); CHLORIDE 106 mmol/L (98-107); GFR AFRICAN-AMERICAN > 60; GLUCOSE,RANDOM 115 mg/dL (70-110); POTASSIUM 4.2 mmol/L (3.6-5.0); SODIUM 141 mmol/L (132-148); TOTAL PROTEIN 7.1 g/dL (5.8-8.3)
[2017-01-04] MEDS: Insulin Reg-MEDIUM-Coverage SC SCH ×4 (08:31→21:58)
--- NOTE | 2017-01-04 09:42 | PN ---
SUBJECTIVE: I saw her this morning resting comfortably in bed. She is on the psychiatric floor. She slept fairly well. She is also very tired this morning, but no acute distress. She is on Clozaril, Cogentin, Colace, Cozaar, Ecotrin, iron, insulin, simethicone, Milk of Magnesia, Norvasc, Tylenol, Zetia, and Zoloft. PHYSICAL EXAMINATION: VITAL SIGNS: 98.2 temperature, 77 pulse, 116/84 blood pressure, 16 respiratory rate, and 100% O2 sat on room air. HEENT: Head is atraumatic, normocephalic. HEART: Regular rate. LUNGS: Clear to auscultation. ABDOMEN: Soft. EXTREMITIES: No edema. LABORATORY DATA: The laboratory was good at 7.9 white count, 11.6 hemoglobin, 358 platelets. 141 sodium, potassium 3.4, potassium was given to replace. BUN 7, creatinine 0.4, sugar is 152, calcium is 9.3, total bilirubin is 0.3. AST is 22, ALT is 38, alkaline phosphatase is 108, total protein is 7.7, albumin is 4.4. Urine was traced and toxicology was negative. I will continue with treatment and care by psychiatry. I will be following her for her diabetes, hypertension, her potassium level and hope that she will continue to improve. I encouraged her to participate in groups. Jason Contreras DO
[2017-01-04] MEDS ORDERED: Iron Complex Polysacch 150mg Cap PO SCH (10:00)
[2017-01-04] MEDS: Iron Complex Polysacch 150mg Cap PO SCH (10:28)
--- NOTE | 2017-01-04 12:04 | CARD ---
APPROVED REPORT EKG Measurement Heart [id number] AL 150P43 [id number] <Conclusion> Normal sinus rhythm Minimal voltage criteria for LVH, may be normal variant Nonspecific T wave abnormality Abnormal ECG
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
[2017-01-05 07:34] VITALS: O2SAT 99
[2017-01-05 07:49] LABS: HEMATOCRIT 33.4 % (36.0-48.0); MEAN CELL VOLUME 82.9 fl (80.0-105.0); MEAN CORPUSCULAR HGB CONC 33.8 g/dl (31.0-37.0); MEAN PLATELET VOLUME 8.4 fl (7.0-11.0); RED CELL DISTRIBUTION WIDTH 16.5 % (11.5-14.5); WHITE BLOOD COUNT 10.1 10^3/ul (4.5-11.0)
[2017-01-05 07:56] LABS: ALB/GLOB RATIO 1.3 (1.1-1.8); ALKALINE PHOSPHATASE 82 U/L (38-133); ALT/SGPT 33 U/L (7-56); AST/SGOT 23 U/L (15-39); BILIRUBIN,TOTAL 0.2 mg/dL (0.2-1.3); BLOOD UREA NITROGEN 8 mg/dL (7-21); CALCIUM 9.1 mg/dL (8.4-10.5); CARBON DIOXIDE 24 mmol/L (21-33); CHLORIDE 105 mmol/L (98-107); GFR AFRICAN-AMERICAN > 60; GLUCOSE,RANDOM 115 mg/dL (70-110); POTASSIUM 4.1 mmol/L (3.6-5.0); SODIUM 141 mmol/L (132-148)
[2017-01-05] MEDS: Insulin Reg-MEDIUM-Coverage SC SCH ×4 (08:00→21:14)
[2017-01-05] MEDS: Iron Complex Polysacch 150mg Cap PO SCH (09:45)
--- NOTE | 2017-01-05 10:35 | PN ---
DATE: SUBJECTIVE: I saw her resting comfortably in bed. She slept well. She has no complaints this morning. She tells me she is starting to improve. She is participating and in good spirits. PHYSICAL EXAMINATION: VITAL SIGNS: She has 96.3 temp, 80 pulse, 137/92 blood pressure, also 115/80 blood pressure, 18 respiratory rate, and 99% sat on room air. HEENT: Head is atraumatic, normocephalic. Throat is moist. NECK: Supple. HEART: Regular rate. LUNGS: Decreased breath sounds, but clear. ABDOMEN: Soft, obese. EXTREMITIES: No edema. MEDICATIONS: She is currently on Clozaril, Cogentin, Colace, Cozaar, Ecotrin, iron, Glucophage, insulin, MiraLax, milk of magnesia, Norvasc, Tylenol, Zetia, and Zoloft. LABORATORY DATA: She has a 10.1 white count, 11.3 hemoglobin, 33.4 hematocrit, with 375 platelets. 141 sodium, potassium is better at 4.1, BUN 8, creatinine 0.4. GFR is greater than 60. Sugar is 115. Calcium 9.1, total bilirubin 0.2, AST 23, ALT 33, alk phos 82, total protein 7, albumin 4, globulin 3. Urine is trace. Toxicology was negative. ASSESSMENT AND PLAN: We will continue with aggressive treatment and care as per psychiatry. Medically, I think she is fairly stable at this time. Still doing medicine adjustments. She has schizophrenia, bipolar, diabetes, physical therapy. She had a fall, hypertension, low potassium, but continue to follow. Jason Contreras DO
--- NOTE | 2017-01-05 14:35 | PCM.PYCHPN ---
Psychiatric Progress Note - Psychiatric Progress Note Patient seen today, length of contact: 30min Patient Chief Complaint: "I am feeling great, how are you?" Problems Identified/Issues Discussed: Suicide/ homicide prevention, past psychiatric h/o, current psychiatric symptoms , medical problems, risk/benefits and alternatives of medications, medications compliance, coping strategies, substance abuse h/o, relapse prevention, importance of follow up with psychiatrist and therapist, discharge plan. Medical Problems: see HPI Diagnostic Results: 01/05/17 07:30 01/05/17 07:30 Lab Results 01/05/17 11:54: POC Glucose (mg/dL) 157 H 01/05/17 07:30: Hemoglobin A1c 7.4 H 01/05/17 07:30: Sodium 141, Potassium 4.1, Chloride 105, Carbon Dioxide 24, Anion Gap 16, BUN 8, Creatinine 0.4 L, Est GFR ( Amer) > 60, Est GFR (Non -Af Amer) > 60, Random Glucose 115 H, Calcium 9.1, Total Bilirubin 0.2, AST 23, ALT 33, Alkaline Phosphatase 82, Total Protein 7.0, Albumin 4.0, Globulin 3.0, Albumin/Globulin Ratio 1.3 01/05/17 07:30: WBC 10.1, RBC 4.03, Hgb 11.3 L, Hct 33.4 L, MCV 82.9, MCH 28.0, MCHC 33.8, RDW 16.5 H, Plt Count 375, MPV 8.4 01/05/17 07:20: POC Glucose (mg/dL) 142 H 01/04/17 21:36: POC Glucose (mg/dL) 201 H 01/04/17 16:31: POC Glucose (mg/dL) 118 H 01/04/17 11:35: POC Glucose (mg/dL) 107 01/04/17 07:49: POC Glucose (mg/dL) 120 H 01/04/17 07:15: Sodium 141, Potassium 4.2, Chloride 106, Carbon Dioxide 24, Anion Gap 15, BUN 6 L, Creatinine 0.4 L, Est GFR ( Amer) > 60, Est GFR ( Non-Af Amer) > 60, Random Glucose 115 H, Calcium 9.0, Total Bilirubin 0.2, AST 25, ALT 34, Alkaline Phosphatase 85, Total Protein 7.1, Albumin 4.0, Globulin 3.1, Albumin/Globulin Ratio 1.3 01/04/17 07:15: WBC 9.6 D, RBC 4.01, Hgb 11.3 L, Hct 33.3 L, MCV 83.0, MCH 28.2 , MCHC 33.9, RDW 16.4 H, Plt Count 352, MPV 8.2 01/03/17 15:50: POC Glucose (mg/dL) 152 H 01/03/17 13:50: Urine Opiates Screen Negative, Urine Methadone Screen Negative, Ur Barbiturates Screen Negative, Ur Phencyclidine Scrn Negative, Ur Amphetamines Screen Negative, U Benzodiazepines Scrn Negative, U Oth Cocaine Metabols Negative, U Cannabinoids Screen Negative 01/03/17 13:50: Urine Color Yellow, Urine Appearance Sl cloudy, Urine pH 6.0, Ur Specific [place] 1.025, Urine Protein Trace H, Urine Glucose (UA) Negative, Urine Ketones Trace H, Urine Blood Large H, Urine Nitrate Negative, Urine Bilirubin Negative, Urine Urobilinogen 0.2, Ur Leukocyte Esterase Negative, Urine RBC 15 - 20, Urine WBC 0 - 2, Ur Epithelial Cells 10 - 12, Urine Bacteria Trace 01/03/17 12:30: Alcohol, Quantitative < 10 01/03/17 12:30: Sodium 141, Potassium 3.4 L, Chloride 106, Carbon Dioxide 21, Anion Gap 17, BUN 7, Creatinine 0.4 L, Est GFR ( Amer) > 60, Est GFR (Non -Af Amer) > 60, Random Glucose 166 H, Calcium 9.3, Total Bilirubin 0.3, AST 22, ALT 38, Alkaline Phosphatase 108, Total Protein 7.7, Albumin 4.4, Globulin 3.3, Albumin/Globulin Ratio 1.3 01/03/17 12:30: WBC 7.9 D, RBC 4.12, Hgb 11.6 L, Hct 34.1 L, MCV 82.8, MCH 28.2 , MCHC 34.0, RDW 16.3 H, Plt Count 358, MPV 8.3, Gran % 56.4, Lymph % (Auto) 34.6, [place] % (Auto) 7.5 H, Eos % (Auto) 1.1 L, Baso % (Auto) 0.4, Gran # 4.42, Lymph # 2.7, Clinch # 0.6, Eos # 0.1, Baso # 0.03 Vital Signs Temp Pulse Resp BP Pulse Ox 01/05/17 09:46 137/92 H 01/05/17 07:00 96.3 F L 80 18 137/92 H 99 01/04/17 16:10 86 115/80 01/04/17 10:28 116/84 01/04/17 07:02 97.8 F 77 16 116/84 01/03/17 22:14 20 01/03/17 22:00 98.2 F 98 H 20 136/89 01/03/17 19:39 86 17 140/91 H 100 01/03/17 15:28 123/80 01/03/17 12:38 98.4 F 98 H 16 128/74 100 DSM 5 Symptoms Update: shortly patient is 40 years old -[place] female, long and debilitating history of schizophrenia, treatment resistant, multiple admissions to the psychiatric inpatient unit in the past, including to this hospital, for this year only it is the fifth admission to the [facility], [facility], patient is followed by [facility] PACT team, pt is on clozaril and Haldol Dec. PACT team SW evaluated pt at the ED, still pt was not able to contract for safety, was verbalizing thoughts of killing herself by cutting, this typewriters functional tester initiated [facility] [place] screening process, but referral was not accepted because pt was willing to be admitted. patient was seen and examined, pt is very superficial, said that she is " feeling great, how are you?", when was asked what made that change, pt said "I am here, taking my medications, nothing is bothering me, I am doing just fine". Patient presented to be very disorganized in her thoughts, saying random things , no connections among statements. pt said she is in the relationship with Mr. Alvarez (delusions). as per staff pt is superficial, but polite, calm, cooperative. pt tolerates meds well, no side effects observed or reported, AIMS 0, no EPS. Impression: schizoaffective, bipolar type Medication Change: No (resumed) Medical Record Reviewed: Yes Consults ordered or reviewed: medical consult appreciated Mental Status Examination - Cognitive Function Orientation: Person, Place, Situation Memory: Impaired Attention: Poor Concentration: Poor Association: Loose Fund of Knowledge: Poor - Mood Mood: Depressed - Affect Affect: Flat - Formal Thought Process Formal Thought Process: Hallucinations, Circumstantial, Other (disorganized) - Suicidal Ideation Suicidal Ideation: No - Homicidal Ideation Homicidal Ideation: No Goal/Treatment Plan - Goal/Treatment Plan Need for Continued Stay: Remain at risks for inpatient hospitalization, Severe depression anxiety, Discharge may exacerbated symptoms, Severe functional impairment Progress Toward Problem(s) and Goals/Treatment Plan: milieu, structure, supportive therapy edications were confirmed by patient treatment team 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 Injectable Haldol 100mg q monthly Injection due is on January 11 cogentin 1mg po bid for EPS Medical consult appreciated Collateral information appreciated We'll monitor closely zoloft 50mg daily for depression PACT team collaterals appreciated SW evaluation will monitor Gran# Estimated Date of D/C: 01/09/17
[2017-01-06] MEDS: Iron Complex Polysacch 150mg Cap PO SCH (08:57)
--- NOTE | 2017-01-06 13:30 | PN ---
SUBJECTIVE: I saw the patient this morning, resting in bed. She slept well. She tells me she is feeling a bit better, participating and taking medications. She is on Clozaril, Cogentin, Colace, Cozaar, Ecotrin, Ferrex, Glucophage, insulin, MiraLax, milk of magnesia, Norvasc, Tylenol, Zetia, and Zoloft. PHYSICAL EXAMINATION: VITAL SIGNS: Temp 96.3, pulse 100, blood pressure 128/90, respiratory rate 18, and 99% O2 sat on room air. HEENT: Head is atraumatic, normocephalic. Throat is moist. NECK: Supple. HEART: Regular rate. LUNGS: Clear to auscultation. ABDOMEN: Soft, obese. EXTREMITIES: No edema. LABORATORY DATA: She has white count 10.1, hemoglobin 11.3,hematocrit 33.4 with platelets 375. Sodium 141, potassium 4.1, BUN 8, creatinine 0.4. GFR is greater than 60. Sugar is 115. Hemoglobin A1c is 7.4. Calcium is 9.1, total bilirubin is 0.2, AST is 23, ALT is 33, alk phos 82, total protein 7, albumin is 4, globulin 3. ASSESSMENT AND PLAN: She is being seen by psychiatry and adjusting her medications. She is here for severe depression and anxiety. She has low potassium, schizophrenia, diabetes and hypertension. Encouraged her to participate and take her medications, and we will follow. Jason Contreras DO
[2017-01-06] MEDS: Insulin Reg-MEDIUM-Coverage SC SCH ×3 (14:36→22:57)
--- NOTE | 2017-01-06 16:26 | PCM.PYCHPN ---
Psychiatric Progress Note - Psychiatric Progress Note Patient seen today, length of contact: 30min Patient Chief Complaint: "I am feeling great, nothing is bothering me..." Problems Identified/Issues Discussed: Suicide/ homicide prevention, past psychiatric h/o, current psychiatric symptoms , medical problems, risk/benefits and alternatives of medications, medications compliance, coping strategies, substance abuse h/o, relapse prevention, importance of follow up with psychiatrist and therapist, discharge plan. Medical Problems: see HPI Diagnostic Results: 01/05/17 07:30 01/05/17 07:30 Lab Results 01/05/17 11:54: POC Glucose (mg/dL) 157 H 01/05/17 07:30: Hemoglobin A1c 7.4 H 01/05/17 07:30: Sodium 141, Potassium 4.1, Chloride 105, Carbon Dioxide 24, Anion Gap 16, BUN 8, Creatinine 0.4 L, Est GFR ( Amer) > 60, Est GFR (Non -Af Amer) > 60, Random Glucose 115 H, Calcium 9.1, Total Bilirubin 0.2, AST 23, ALT 33, Alkaline Phosphatase 82, Total Protein 7.0, Albumin 4.0, Globulin 3.0, Albumin/Globulin Ratio 1.3 01/05/17 07:30: WBC 10.1, RBC 4.03, Hgb 11.3 L, Hct 33.4 L, MCV 82.9, MCH 28.0, MCHC 33.8, RDW 16.5 H, Plt Count 375, MPV 8.4 01/05/17 07:20: POC Glucose (mg/dL) 142 H 01/04/17 21:36: POC Glucose (mg/dL) 201 H 01/04/17 16:31: POC Glucose (mg/dL) 118 H 01/04/17 11:35: POC Glucose (mg/dL) 107 01/04/17 07:49: POC Glucose (mg/dL) 120 H 01/04/17 07:15: Sodium 141, Potassium 4.2, Chloride 106, Carbon Dioxide 24, Anion Gap 15, BUN 6 L, Creatinine 0.4 L, Est GFR ( Amer) > 60, Est GFR ( Non-Af Amer) > 60, Random Glucose 115 H, Calcium 9.0, Total Bilirubin 0.2, AST 25, ALT 34, Alkaline Phosphatase 85, Total Protein 7.1, Albumin 4.0, Globulin 3.1, Albumin/Globulin Ratio 1.3 01/04/17 07:15: WBC 9.6 D, RBC 4.01, Hgb 11.3 L, Hct 33.3 L, MCV 83.0, MCH 28.2 , MCHC 33.9, RDW 16.4 H, Plt Count 352, MPV 8.2 01/03/17 15:50: POC Glucose (mg/dL) 152 H 01/03/17 13:50: Urine Opiates Screen Negative, Urine Methadone Screen Negative, Ur Barbiturates Screen Negative, Ur Phencyclidine Scrn Negative, Ur Amphetamines Screen Negative, U Benzodiazepines Scrn Negative, U Oth Cocaine Metabols Negative, U Cannabinoids Screen Negative 01/03/17 13:50: Urine Color Yellow, Urine Appearance Sl cloudy, Urine pH 6.0, Ur Specific [place] 1.025, Urine Protein Trace H, Urine Glucose (UA) Negative, Urine Ketones Trace H, Urine Blood Large H, Urine Nitrate Negative, Urine Bilirubin Negative, Urine Urobilinogen 0.2, Ur Leukocyte Esterase Negative, Urine RBC 15 - 20, Urine WBC 0 - 2, Ur Epithelial Cells 10 - 12, Urine Bacteria Trace 01/03/17 12:30: Alcohol, Quantitative < 10 01/03/17 12:30: Sodium 141, Potassium 3.4 L, Chloride 106, Carbon Dioxide 21, Anion Gap 17, BUN 7, Creatinine 0.4 L, Est GFR ( Amer) > 60, Est GFR (Non -Af Amer) > 60, Random Glucose 166 H, Calcium 9.3, Total Bilirubin 0.3, AST 22, ALT 38, Alkaline Phosphatase 108, Total Protein 7.7, Albumin 4.4, Globulin 3.3, Albumin/Globulin Ratio 1.3 01/03/17 12:30: WBC 7.9 D, RBC 4.12, Hgb 11.6 L, Hct 34.1 L, MCV 82.8, MCH 28.2 , MCHC 34.0, RDW 16.3 H, Plt Count 358, MPV 8.3, Gran % 56.4, Lymph % (Auto) 34.6, [place] % (Auto) 7.5 H, Eos % (Auto) 1.1 L, Baso % (Auto) 0.4, Gran # 4.42, Lymph # 2.7, [place] # 0.6, Eos # 0.1, Baso # 0.03 Vital Signs Temp Pulse Resp BP Pulse Ox 01/05/17 09:46 137/92 H 01/05/17 07:00 96.3 F L 80 18 137/92 H 99 01/04/17 16:10 86 115/80 01/04/17 10:28 116/84 01/04/17 07:02 97.8 F 77 16 116/84 01/03/17 22:14 20 01/03/17 22:00 98.2 F 98 H 20 136/89 01/03/17 19:39 86 17 140/91 H 100 01/03/17 15:28 123/80 01/03/17 12:38 98.4 F 98 H 16 128/74 100 DSM 5 Symptoms Update: shortly patient is 40 years old -Gabonese female, long and debilitating history of schizophrenia, treatment resistant, multiple admissions to the psychiatric inpatient unit in the past, including [facility], for this year only it is the fifth admission to the [facility], most recent was in October 2016 to [facility], patient is followed by [facility] PACT team, pt is on clozaril and Haldol Dec. 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 patient was seen and examined, hygiene is better, wears a blond wig which pulled down towards her eyebrows which gives pt weird look. pt is very superficial, said that she is "feeling great, how are you?", when was asked what made that change, pt said "I am here, taking my medications, nothing is bothering me, I am doing just fine". Patient presented to be very disorganized in her thoughts, saying random things, no connections among statements. pt said she is in the relationship with Mr. Alvarez (delusions). as per staff pt is superficial, but polite, calm, cooperative. pt tolerates meds well, no side effects observed or reported, AIMS 0, no EPS. Impression: schizoaffective, bipolar type Medication Change: No (resumed) Medical Record Reviewed: Yes Consults ordered or reviewed: medical consult appreciated Mental Status Examination - Cognitive Function Orientation: Person, Place, Situation Memory: Impaired Attention: Poor Concentration: Poor Association: Loose Fund of Knowledge: Poor - Mood Mood: Neutral - Affect Affect: Constricted (more reactive today) - Speech Speech: Appropriate - Formal Thought Process Formal Thought Process: Hallucinations, Circumstantial, Other (disorganized) - Suicidal Ideation Suicidal Ideation: No - Homicidal Ideation Homicidal Ideation: No Goal/Treatment Plan - Goal/Treatment Plan Need for Continued Stay: Remain at risks for inpatient hospitalization, Severe depression anxiety, Discharge may exacerbated symptoms, Severe functional impairment Progress Toward Problem(s) and Goals/Treatment Plan: milieu, structure, supportive therapy medications were confirmed by patient treatment team 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
[2017-01-07] MEDS: Insulin Reg-MEDIUM-Coverage SC SCH ×4 (08:00→21:24)
[2017-01-07] MEDS: Iron Complex Polysacch 150mg Cap PO SCH (08:34)
--- NOTE | 2017-01-07 10:42 | PCM.PYCHPN ---
Psychiatric Progress Note - Psychiatric Progress Note Patient seen today, length of contact: 30min Patient Chief Complaint: "I am feeling great" Problems Identified/Issues Discussed: Suicide/ homicide prevention, past psychiatric h/o, current psychiatric symptoms , medical problems, risk/benefits and alternatives of medications, medications compliance, coping strategies, substance abuse h/o, relapse prevention, importance of follow up with psychiatrist and therapist, discharge plan. Medical Problems: see HPI Diagnostic Results: 01/05/17 07:30 01/05/17 07:30 Lab Results 01/05/17 11:54: POC Glucose (mg/dL) 157 H 01/05/17 07:30: Hemoglobin A1c 7.4 H 01/05/17 07:30: Sodium 141, Potassium 4.1, Chloride 105, Carbon Dioxide 24, Anion Gap 16, BUN 8, Creatinine 0.4 L, Est GFR ( Amer) > 60, Est GFR (Non -Af Amer) > 60, Random Glucose 115 H, Calcium 9.1, Total Bilirubin 0.2, AST 23, ALT 33, Alkaline Phosphatase 82, Total Protein 7.0, Albumin 4.0, Globulin 3.0, Albumin/Globulin Ratio 1.3 01/05/17 07:30: WBC 10.1, RBC 4.03, Hgb 11.3 L, Hct 33.4 L, MCV 82.9, MCH 28.0, MCHC 33.8, RDW 16.5 H, Plt Count 375, MPV 8.4 01/05/17 07:20: POC Glucose (mg/dL) 142 H 01/04/17 21:36: POC Glucose (mg/dL) 201 H 01/04/17 16:31: POC Glucose (mg/dL) 118 H 01/04/17 11:35: POC Glucose (mg/dL) 107 01/04/17 07:49: POC Glucose (mg/dL) 120 H 01/04/17 07:15: Sodium 141, Potassium 4.2, Chloride 106, Carbon Dioxide 24, Anion Gap 15, BUN 6 L, Creatinine 0.4 L, Est GFR ( Amer) > 60, Est GFR ( Non-Af Amer) > 60, Random Glucose 115 H, Calcium 9.0, Total Bilirubin 0.2, AST 25, ALT 34, Alkaline Phosphatase 85, Total Protein 7.1, Albumin 4.0, Globulin 3.1, Albumin/Globulin Ratio 1.3 01/04/17 07:15: WBC 9.6 D, RBC 4.01, Hgb 11.3 L, Hct 33.3 L, MCV 83.0, MCH 28.2 , MCHC 33.9, RDW 16.4 H, Plt Count 352, MPV 8.2 01/03/17 15:50: POC Glucose (mg/dL) 152 H 01/03/17 13:50: Urine Opiates Screen Negative, Urine Methadone Screen Negative, Ur Barbiturates Screen Negative, Ur Phencyclidine Scrn Negative, Ur Amphetamines Screen Negative, U Benzodiazepines Scrn Negative, U Oth Cocaine Metabols Negative, U Cannabinoids Screen Negative 01/03/17 13:50: Urine Color Yellow, Urine Appearance Sl cloudy, Urine pH 6.0, Ur Specific [place] 1.025, Urine Protein Trace H, Urine Glucose (UA) Negative, Urine Ketones Trace H, Urine Blood Large H, Urine Nitrate Negative, Urine Bilirubin Negative, Urine Urobilinogen 0.2, Ur Leukocyte Esterase Negative, Urine RBC 15 - 20, Urine WBC 0 - 2, Ur Epithelial Cells 10 - 12, Urine Bacteria Trace 01/03/17 12:30: Alcohol, Quantitative < 10 01/03/17 12:30: Sodium 141, Potassium 3.4 L, Chloride 106, Carbon Dioxide 21, Anion Gap 17, BUN 7, Creatinine 0.4 L, Est GFR ( Amer) > 60, Est GFR (Non -Af Amer) > 60, Random Glucose 166 H, Calcium 9.3, Total Bilirubin 0.3, AST 22, ALT 38, Alkaline Phosphatase 108, Total Protein 7.7, Albumin 4.4, Globulin 3.3, Albumin/Globulin Ratio 1.3 01/03/17 12:30: WBC 7.9 D, RBC 4.12, Hgb 11.6 L, Hct 34.1 L, MCV 82.8, MCH 28.2 , MCHC 34.0, RDW 16.3 H, Plt Count 358, MPV 8.3, Gran % 56.4, Lymph % (Auto) 34.6, [place] % (Auto) 7.5 H, Eos % (Auto) 1.1 L, Baso % (Auto) 0.4, Gran # 4.42, Lymph # 2.7, [place] # 0.6, Eos # 0.1, Baso # 0.03 Vital Signs Temp Pulse Resp BP Pulse Ox 01/05/17 09:46 137/92 H 01/05/17 07:00 96.3 F L 80 18 137/92 H 99 01/04/17 16:10 86 115/80 01/04/17 10:28 116/84 01/04/17 07:02 97.8 F 77 16 116/84 01/03/17 22:14 20 01/03/17 22:00 98.2 F 98 H 20 136/89 01/03/17 19:39 86 17 140/91 H 100 01/03/17 15:28 123/80 01/03/17 12:38 98.4 F 98 H 16 128/74 100 DSM 5 Symptoms Update: shortly patient is 40 years old -Spanish female, long and debilitating history of schizophrenia, treatment resistant, multiple admissions to the psychiatric inpatient unit in the past, including to this hospital, for this year only it is the fifth admission to the [facility], most recent was in October 2016 to [facility], patient is followed by [facility] PACT team, pt is on clozaril and Haldol Dec. PACT team SW evaluated pt at the ED, still pt was not able to contract for safety, was verbalizing thoughts of killing herself by cutting, this copy writer initiated [facility] [place], but referral was not accepted because pt was willing to be admitted. patient was seen and examined, hygiene is better, wears a blond wig which pulled down towards her eyebrows which gives pt weird look. ptis disorganized, is very superficial, said that she is "feeling great", compliant with meds, no aggression, no agitation, possible d/c on Monday. pt said she is in the relationship with Mr. Alvarez (delusions). as per staff pt is superficial, but polite, calm, cooperative. pt tolerates meds well, no side effects observed or reported, AIMS 0, no EPS. Impression: schizoaffective, bipolar type Medication Change: No Medical Record Reviewed: Yes Consults ordered or reviewed: medical consult appreciated Mental Status Examination - Cognitive Function Orientation: Person, Place, Situation Memory: Impaired Attention: Poor Concentration: Poor Association: Loose Fund of Knowledge: Poor - Mood Mood: Neutral - Affect Affect: Constricted (more reactive today) - Speech Speech: Appropriate - Formal Thought Process Formal Thought Process: Hallucinations, Circumstantial, Other (disorganized) - Suicidal Ideation Suicidal Ideation: No - Homicidal Ideation Homicidal Ideation: No Goal/Treatment Plan - Goal/Treatment Plan Need for Continued Stay: Remain at risks for inpatient hospitalization, Severe depression anxiety, Discharge may exacerbated symptoms, Severe functional impairment Progress Toward Problem(s) and Goals/Treatment Plan: milieu, structure, supportive therapy medications were confirmed by patient treatment team 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
--- NOTE | 2017-01-07 13:43 | PN ---
SUBJECTIVE: I saw her in the psychiatric floor. She is back in bed. She ate breakfast and went back to sleep. I would like to get her up and walking around and participating more. She is on Clozaril, Cogentin, Colace, Cozaar, Ecotrin, iron, Glucophage, insulin, Maalox, Milk of Magnesia, Norvasc, Tylenol, Zetia, and Zoloft. She has no complaints. She is tired and wants to sleep. PHYSICAL EXAMINATION: VITAL SIGNS: She has 98.1 temp, 77 pulse, 113/79 blood pressure, 18 respiratory rate, 99% sat on room air. HEENT: Head is atraumatic and normocephalic. HEART: Regular rate. LUNGS: Clear to auscultation. ABDOMEN: Soft. EXTREMITIES: No edema. LABORATORY DATA: She has 10.1 white count, 11.3 hemoglobin, 375 platelets. Last blood sugar was 122. The blood sugars have been good. Urine is trace, toxicology good. ASSESSMENT AND PLAN: She is being seen by Psychiatry. They are adjusting her medications. She is here for potassium which was correct, schizophrenia, depression, diabetes, hypertension, and fall. We will follow. Jason Contreras DO
[2017-01-08] MEDS: Iron Complex Polysacch 150mg Cap PO SCH (09:02)
[2017-01-08] MEDS: Insulin Reg-MEDIUM-Coverage SC SCH ×4 (09:03→21:42)
--- NOTE | 2017-01-08 12:19 | PCM.PYCHPN ---
Psychiatric Progress Note - Psychiatric Progress Note Patient seen today, length of contact: 30min Patient Chief Complaint: "I am alright" Problems Identified/Issues Discussed: Suicide/ homicide prevention, past psychiatric h/o, current psychiatric symptoms , medical problems, risk/benefits and alternatives of medications, medications compliance, coping strategies, substance abuse h/o, relapse prevention, importance of follow up with psychiatrist and therapist, discharge plan. Medical Problems: see HPI Diagnostic Results: 01/05/17 07:30 01/05/17 07:30 Lab Results 01/05/17 11:54: POC Glucose (mg/dL) 157 H 01/05/17 07:30: Hemoglobin A1c 7.4 H 01/05/17 07:30: Sodium 141, Potassium 4.1, Chloride 105, Carbon Dioxide 24, Anion Gap 16, BUN 8, Creatinine 0.4 L, Est GFR ( Amer) > 60, Est GFR (Non -Af Amer) > 60, Random Glucose 115 H, Calcium 9.1, Total Bilirubin 0.2, AST 23, ALT 33, Alkaline Phosphatase 82, Total Protein 7.0, Albumin 4.0, Globulin 3.0, Albumin/Globulin Ratio 1.3 01/05/17 07:30: WBC 10.1, RBC 4.03, Hgb 11.3 L, Hct 33.4 L, MCV 82.9, MCH 28.0, MCHC 33.8, RDW 16.5 H, Plt Count 375, MPV 8.4 01/05/17 07:20: POC Glucose (mg/dL) 142 H 01/04/17 21:36: POC Glucose (mg/dL) 201 H 01/04/17 16:31: POC Glucose (mg/dL) 118 H 01/04/17 11:35: POC Glucose (mg/dL) 107 01/04/17 07:49: POC Glucose (mg/dL) 120 H 01/04/17 07:15: Sodium 141, Potassium 4.2, Chloride 106, Carbon Dioxide 24, Anion Gap 15, BUN 6 L, Creatinine 0.4 L, Est GFR ( Amer) > 60, Est GFR ( Non-Af Amer) > 60, Random Glucose 115 H, Calcium 9.0, Total Bilirubin 0.2, AST 25, ALT 34, Alkaline Phosphatase 85, Total Protein 7.1, Albumin 4.0, Globulin 3.1, Albumin/Globulin Ratio 1.3 01/04/17 07:15: WBC 9.6 D, RBC 4.01, Hgb 11.3 L, Hct 33.3 L, MCV 83.0, MCH 28.2 , MCHC 33.9, RDW 16.4 H, Plt Count 352, MPV 8.2 01/03/17 15:50: POC Glucose (mg/dL) 152 H 01/03/17 13:50: Urine Opiates Screen Negative, Urine Methadone Screen Negative, Ur Barbiturates Screen Negative, Ur Phencyclidine Scrn Negative, Ur Amphetamines Screen Negative, U Benzodiazepines Scrn Negative, U Oth Cocaine Metabols Negative, U Cannabinoids Screen Negative 01/03/17 13:50: Urine Color Yellow, Urine Appearance Sl cloudy, Urine pH 6.0, Ur Specific [place] 1.025, Urine Protein Trace H, Urine Glucose (UA) Negative, Urine Ketones Trace H, Urine Blood Large H, Urine Nitrate Negative, Urine Bilirubin Negative, Urine Urobilinogen 0.2, Ur Leukocyte Esterase Negative, Urine RBC 15 - 20, Urine WBC 0 - 2, Ur Epithelial Cells 10 - 12, Urine Bacteria Trace 01/03/17 12:30: Alcohol, Quantitative < 10 01/03/17 12:30: Sodium 141, Potassium 3.4 L, Chloride 106, Carbon Dioxide 21, Anion Gap 17, BUN 7, Creatinine 0.4 L, Est GFR ( Amer) > 60, Est GFR (Non -Af Amer) > 60, Random Glucose 166 H, Calcium 9.3, Total Bilirubin 0.3, AST 22, ALT 38, Alkaline Phosphatase 108, Total Protein 7.7, Albumin 4.4, Globulin 3.3, Albumin/Globulin Ratio 1.3 01/03/17 12:30: WBC 7.9 D, RBC 4.12, Hgb 11.6 L, Hct 34.1 L, MCV 82.8, MCH 28.2 , MCHC 34.0, RDW 16.3 H, Plt Count 358, MPV 8.3, Gran % 56.4, Lymph % (Auto) 34.6, [place] % (Auto) 7.5 H, Eos % (Auto) 1.1 L, Baso % (Auto) 0.4, Gran # 4.42, Lymph # 2.7, [place] # 0.6, Eos # 0.1, Baso # 0.03 Vital Signs Temp Pulse Resp BP Pulse Ox 01/05/17 09:46 137/92 H 01/05/17 07:00 96.3 F L 80 18 137/92 H 99 01/04/17 16:10 86 115/80 01/04/17 10:28 116/84 01/04/17 07:02 97.8 F 77 16 116/84 01/03/17 22:14 20 01/03/17 22:00 98.2 F 98 H 20 136/89 01/03/17 19:39 86 17 140/91 H 100 01/03/17 15:28 123/80 01/03/17 12:38 98.4 F 98 H 16 128/74 100 DSM 5 Symptoms Update: shortly patient is 40 years old -Iranian female, long and debilitating history of schizophrenia, treatment resistant, multiple admissions to the psychiatric inpatient unit in the past, including to this hospital, for this year only it is the fifth admission to the [facility], most recent was in October 2016 to [facility], patient is followed by [facility] PACT team, pt is on clozaril and Haldol Dec. 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 patient was seen and examined today with PMD , pt is sleepy most likely due to a clozaril, pt is low profile, superficial, no acute changes, compliant with meds, no aggression, no agitation, possible d/c on Monday. pt said she is in the relationship with Mr. Alvarez (delusions). as per staff pt is superficial, but polite, calm, cooperative. pt tolerates meds well, no side effects observed or reported, AIMS 0, no EPS. Impression: schizoaffective, bipolar type Medication Change: No Medical Record Reviewed: Yes Mental Status Examination - Cognitive Function Orientation: Person, Place, Situation Memory: Impaired Attention: Poor Concentration: Poor Association: Loose Fund of Knowledge: Poor - Mood Mood: Neutral - Affect Affect: Constricted (more reactive today) - Speech Speech: Appropriate - Formal Thought Process Formal Thought Process: Hallucinations, Circumstantial, Other (disorganized) - Suicidal Ideation Suicidal Ideation: No - Homicidal Ideation Homicidal Ideation: No Goal/Treatment Plan - Goal/Treatment Plan Need for Continued Stay: Remain at risks for inpatient hospitalization, Severe depression anxiety, Discharge may exacerbated symptoms, Severe functional impairment Progress Toward Problem(s) and Goals/Treatment Plan: milieu, structure, supportive therapy medications were confirmed by patient treatment team 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
--- NOTE | 2017-01-08 17:32 | PN ---
DATE: SUBJECTIVE: I saw Gato sleeping in bed this morning. She is fairly comfortable. I saw her with the psychiatrist. She is on Clozaril, Cogentin, Cozaar, Ecotrin, Ferrex, Glucophage, insulin, Maalox, milk of magnesia, Norvasc, Tylenol, Zetia and Zoloft. For the most part, she is improving. She might be going home soon. PHYSICAL EXAMINATION VITAL SIGNS: She has a 98.1 temp, 77 pulse, 113/79 blood pressure, 18 respiratory rate, 99% sat on room air. HEENT: Head atraumatic, normocephalic. LABORATORY DATA: She has a 10.1 white count, 11.3 hemoglobin, 375 platelets, last blood sugar was 94. ASSESSMENT AND PLAN: Overall, she is feeling better. She is here for low potassium, which improved, schizophrenia, diabetes, hypertension, depression and physical therapy signed off on her. She did fall when she first came in and as per psychiatry, plan is to discharge her home. Jason Conterras DO
[2017-01-09 06:35] VITALS: BP 117/84; PULSE 75; RESP 20; TEMP 97.9
[2017-01-09] MEDS: Iron Complex Polysacch 150mg Cap PO SCH (09:12)
[2017-01-09] MEDS: Insulin Reg-MEDIUM-Coverage SC SCH ×2 (09:13→12:48)
--- NOTE | 2017-01-09 12:37 | PN ---
DATE: SUBJECTIVE: I saw Gato resting in bed this morning. She is alert. She is comfortable. She is in good spirits. She has no complaints to me. PHYSICAL EXAMINATION: VITAL SIGNS: Temperature 97.9, pulse 75, blood pressure 117/84, and respiratory rate 20. HEENT: Head is atraumatic and normocephalic. HEART: Regular rate. LUNGS: Clear to auscultation. ABDOMEN: Soft. EXTREMITIES: No edema. LABORATORY DATA: She has white count of 10.1, platelets 375, and hemoglobin 11.3 on 01/05/2017. Last blood sugar was 115. MEDICATIONS: She is on Clozaril, Cogentin, Colace, Cozaar, Ecotrin, iron, Glucophage, insulin, Maalox, milk of magnesia, Norvasc, Tylenol, Zetia, and Zoloft. ASSESSMENT AND PLAN: I understand she likely being discharged today. I encouraged her to take her medications correctly. Behave on the outpatient. I was seeing her for hypertension and depression. She had a fall. She did well with physical therapy, diabetes, schizophrenia, and low potassium. Hopefully, she will do well on the outpatient. Jason Contreras DO
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
== END 2017-01-09 16:48 | disposition home or self-care (01) | DRG 885 ==
LOC: ED 12:05 → ERH 18:54 → PSYC 21:03
PROVIDERS: ADMIT Psychiatry & Neurology Psychiatry; ATTEND Psychiatry & Neurology Psychiatry
DX: F25.0 Schizoaffective disorder, bipolar type (principal); E87.5 Hyperkalemia; I10 Essential (primary) hypertension; E11.9 Type 2 diabetes mellitus without complications; F17.210 Nicotine dependence, cigarettes, uncomplicated; F41.9 Anxiety disorder, unspecified; Z79.82 Long term (current) use of aspirin; Z79.84 Long term (current) use of oral hypoglycemic drugs

== ENCOUNTER 2017-01-26 17:02 | Inpatient (IN) | payer MEDICARE, MEDICAID ==
[2017-01-26 17:18] VITALS: BMI 29.7
--- NOTE | 2017-01-26 17:19 | ED PDOC ---
Arrival/HPI - General Time Seen by Provider: 01/26/17 17:15 Historian: Patient, EMS - History of Present Illness Narrative History of Present Illness (Text): 01/26/17 17:16 This 41 yo female with pmh HTN, DM 2, Schizophrenia, presents to this ED c/o suicidal ideation x 2 week. Patient stated she hears voices of a man who is constantly telling to kill herself, so she can be reborn into another life. Patient stated she was about to cut herself with a knife , but she stopped and called suicidal hot line, who told her to be evaluated by a physician. Patient denies sob, cp, abdominal pain, urinary symptoms, dizziness, or abnormal gait. Time/Duration: Other (see hpi) Context: Home Past Medical History - Provider Review Nursing Documentation Reviewed: Yes - Past History Past History: Non-Contributing - Infectious Disease Hx of Infectious Diseases: None - Tetanus Immunization Tetanus Immunization: Unknown - Cardiac Hx Cardiac Disorders: No Hx Hypertension: Yes - Pulmonary Hx Tuberculosis: No - Neurological HX Cerebrovascular Accident: No Hx Seizures: Yes (age 14) - HEENT Hx HEENT Disorder: No - Renal Hx Renal Disorder: No - Endocrine/Metabolic Hx Endocrine Disorders: Yes Hx Diabetes Mellitus Type 2: Yes - Hematological/Oncological Hx Cancer: No - Integumentary Hx Dermatological Disorder: No - Musculoskeletal/Rheumatological Hx Musculoskeletal Disorders: No Hx Falls: No - Gastrointestinal Hx Gastrointestinal Disorders: No - Genitourinary/Gynecological Hx Sexually Transmitted Diseases: No - Psychiatric Hx Bipolar Disorder: Yes Hx Depression: Yes Hx Schizophrenia: Yes Hx Substance Use: No - Anesthesia Hx Anesthesia: No - Suicidal Assessment Feels Threatened In Home Enviroment: No Family/Social History - Physician Review Nursing Documentation Reviewed: Yes Family/Social History: Other (non-contributory) Smoking Status: Light Smoker < 10 Cigarettes Daily Hx Alcohol Use: No Hx Substance Use: No Hx Substance Use Treatment: No Allergies/Home Meds Allergies/Adverse Reactions: Allergies No Known Allergies Allergy (Verified 01/03/17 21:27) Home Medications: Home Meds Medication Instructions Recorded Confirmed Benztropine [Benztropine Mesylate] 1 mg PO BID 01/04/17 01/26/17 Review of Systems - Review of Systems Constitutional: Normal. absent: Fatigue, Weight Change, Fevers, Night Sweats Eyes: Normal ENT: Normal Respiratory: Normal Cardiovascular: Normal Gastrointestinal: Normal Genitourinary Female: Normal Musculoskeletal: Normal Skin: Normal Neurological: Normal Endocrine: Normal Hemo/Lymphatic: Normal Psychiatric: Anxiety, Suicidal Ideation, Other (see hpi) Physical Exam Vital Signs Temp Pulse Resp BP Pulse Ox 01/26/17 20:47 98.2 F 91 H 16 141/91 H 96 01/26/17 17:11 98.9 F 105 H 20 143/94 H 98 Temperature: Afebrile Blood Pressure: Normal Pulse: Regular Respiratory Rate: Normal Appearance: Positive for: Well-Appearing, Non-Toxic, Comfortable Pain Distress: None Mental Status: Positive for: Alert and Oriented X 3 - Systems Exam Head: Present: Atraumatic, Normocephalic Pupils: Present: PERRL Extroacular Muscles: Present: EOMI Conjunctiva: Present: Normal Mouth: Present: Moist Mucous Membranes Neck: Present: Normal Range of Motion Respiratory/Chest: Present: Clear to Auscultation, Good Air Exchange. No: Respiratory Distress, Accessory Muscle Use Cardiovascular: Present: Regular Rate and Rhythm, Normal S1, S2. No: Murmurs Abdomen: Present: Normal Bowel Sounds. No: Tenderness, Distention, Peritoneal Signs Back: Present: Normal Inspection Upper Extremity: Present: Normal Inspection. No: Cyanosis, Edema Lower Extremity: Present: Normal Inspection. No: Edema Neurological: Present: GCS=15, CN II-XII Intact, Speech Normal, Motor Func Grossly Intact, Normal Sensory Function, Normal Cerebellar Funct, Gait Normal, Memory Normal Skin: Present: Warm, Dry, Normal Color. No: Rashes Psychiatric: Present: Alert, Oriented x 3, Anxious, Suicidal Ideation, Hallucinations. No: Intoxicated, Lethargic Medical Decision Making ED Course and Treatment: 01/26/17 21:00 I spoke with Edwin from [facility]. He stated patient agrees to be admitted for Bipolar disorder, with manic. To place admission under Dr. Brar 01/26/17 21:04 Patient is medically clear for psychiatric admission Re-evaluation Time: 21:01 Reassessment Condition: Re-examined, Improving,but remains with symptoms - Lab Interpretations Lab Results: 01/26/17 17:55 01/26/17 17:55 Lab Results 01/26/17 17:55: Alcohol, Quantitative < 10 01/26/17 17:55: Salicylates < 1 L, Acetaminophen < 10.0 L 01/26/17 17:55: Sodium 141, Potassium 3.8, Chloride 105, Carbon Dioxide 22, Anion Gap 18, BUN 8, Creatinine 0.5, Est GFR ( Amer) > 60, Est GFR (Non- Af Amer) > 60, Random Glucose 170 H, Calcium 9.3, Total Bilirubin 0.3, AST 31, ALT 37, Alkaline Phosphatase 99, Total Protein 8.0, Albumin 4.5, Globulin 3.5, Albumin/Globulin Ratio 1.3 01/26/17 17:55: WBC 12.0 H, RBC 4.35, Hgb 12.3, Hct 35.8 L, MCV 82.3, MCH 28.3, MCHC 34.4, RDW 17.2 H, Plt Count 337, MPV 8.4, Gran % 54.1, Lymph % (Auto) 37.9 H, [place] % (Auto) 7.0 H, Eos % (Auto) 0.7 L, Baso % (Auto) 0.3, Gran # 6.50, Lymph # 4.6 H, [place] # 0.8 H, Eos # 0.1, Baso # 0.04 01/26/17 17:43: Urine Opiates Screen Negative, Urine Methadone Screen Negative, Ur Barbiturates Screen Negative, Ur Phencyclidine Scrn Negative, Ur Amphetamines Screen Negative, U Benzodiazepines Scrn Negative, U Oth Cocaine Metabols Negative, U Cannabinoids Screen Negative 01/26/17 17:43: Urine Color Yellow, Urine Appearance Clear, Urine pH 6.5, Ur Specific [place] 1.025, Urine Protein Negative, Urine Glucose (UA) Negative, Urine Ketones Trace H, Urine Blood Negative, Urine Nitrate Negative, Urine Bilirubin Negative, Urine Urobilinogen 0.2, Ur Leukocyte Esterase Negative, Urine HCG, Qual Negative I have reviewed the lab results: Yes Interpretation: No clinic. lab abnormalty - RAD Interpretation Narrative RAD Interpretations (Text): 01/26/17 21:04 Chest x-rays: NAD Radiology Orders: 01/26/17 17:26 CHEST PORTABLE [RAD] Stat - EKG Interpretation Interpreted by ED Physician: Yes (Sinus tachycardia @ 106 bpm. LVH) Type: 12 lead EKG Comparison: No previous EKG avail. Disposition/Present on Arrival - Present on Arrival Any Indicators Present on Arrival: No History of DVT/PE: No History of Uncontrolled Diabetes: No Urinary Catheter: No History Surgical Site Infection Following: None - Disposition Have Diagnosis and Disposition been Completed?: Yes Diagnosis: Manic bipolar I disorder Disposition: HOSPITALIZED Disposition Time: 21:05 Condition: STABLE Referrals: Lucía Mathis MD [Primary Care Provider] - Follow up with primary
[2017-01-26 17:53] LABS: PH,URINE 6.5 (4.7-8.0); URINE APPEARANCE CLEAR (CLEAR); URINE BILIRUBIN NEGATIVE (NEGATIVE); URINE BLOOD NEGATIVE (NEGATIVE); URINE COLOR YELLOW (YELLOW); URINE GLUCOSE (UA) NEGATIVE (NEGATIVE); URINE KETONE TRACE mg/dL (NEGATIVE); URINE LEUKOCYTE ESTERASE NEGATIVE Leu/uL (NEGATIVE); URINE PROTEIN NEGATIVE mg/dL (<30 mg/dL); URINE UROBILINOGEN 0.2 E.U./dL (<1 E.U./dL)
[2017-01-26 18:06] LABS: BASO # 0.04 K/mm3 (0.0-2.0); BASO % 0.3 % (0.0-3.0); EOS # 0.1 (0.0-0.7); EOS % 0.7 % (1.5-5.0); GRAN # 6.5 (1.4-6.5); GRAN % 54.1 % (50.0-68.0); HEMATOCRIT 35.8 % (36.0-48.0); LYMPH # 4.6 (1.2-3.4); LYMPH % 37.9 % (22.0-35.0); MEAN CELL VOLUME 82.3 fl (80.0-105.0); MEAN CORPUSCULAR HEMOGLOBIN 28.3 pg (25.0-35.0); MEAN CORPUSCULAR HGB CONC 34.4 g/dl (31.0-37.0); MEAN PLATELET VOLUME 8.4 fl (7.0-11.0); MONO # 0.8 (0.1-0.6); RED CELL DISTRIBUTION WIDTH 17.2 % (11.5-14.5)
[2017-01-26 18:12] LABS: ALB/GLOB RATIO 1.3 (1.1-1.8); ALKALINE PHOSPHATASE 99 U/L (38-126); ALT/SGPT 37 U/L (7-56); AST/SGOT 31 U/L (14-36); BILIRUBIN,TOTAL 0.3 mg/dL (0.2-1.3); BLOOD UREA NITROGEN 8 mg/dL (7-21); CALCIUM 9.3 mg/dL (8.4-10.5); CARBON DIOXIDE 22 mmol/L (21-33); CHLORIDE 105 mmol/L (98-107); GFR AFRICAN-AMERICAN > 60; GLUCOSE,RANDOM 170 mg/dL (70-110); POTASSIUM 3.8 mmol/L (3.6-5.0); SODIUM 141 mmol/L (132-148)
[2017-01-26] MEDS ORDERED: Magnesium Hydroxide Susp 30 ml UD PO PRN (23:05)
[2017-01-26] MEDS ORDERED: Alum-Mag Hydrox-Simethicone Susp (30 mL) PO PRN (23:05)
--- NOTE | 2017-01-27 01:44 | PCM.BM ---
<Sanju Andersonluna - Last Filed: 01/27/17 01:39> Treatment Plan Problems - Problems identified on initial assessmt Suicidal Ideation Date Initiated: 01/26/17 Time Initiated: 22:30 Assessment reference: NA Status: Active Self Harm Date Initiated: 01/26/17 Time Initiated: 22:30 Assessment reference: NA Status: Active Command/Auditory Hallucinations Date Initiated: 01/26/17 Time Initiated: 22:30 Assessment reference: NA Status: Active Anxiety Date Initiated: 01/26/17 Time Initiated: 22:30 Assessment reference: NA Status: Active Treatment assets and liabiliti Patient Assests: adapts well, cooperative, educated, motivated, self-reliant, ADL independent, good support system, negotiates basic needs, financial stabiity , cognitively intact, good interpersonal skills - Milieu Protocol Maintain good personal hygiene: daily Encourage regular showers, daily Remind patient to perform daily oral care, daily Assist patient to perform ADL's Maintain personal safety: every shift Educate patient to report safety concerns to staff, every shift Monitor environment for contraband/sharps Medication safety: Monitor for expected outcome, potential side effects: every shift, Assess barriers to learning: every shift, Assess readiness for medication education: every shift Discharge/Continuing Care - Education Needs Education Needs: Patient Medication, Patient Diagnosis/Disease Process, Patient Coping Skills, Patient Community resources, Patient Nutrition, Patient Health Practices/Safety, Patient Aftercare Safety Plan - Discharge Discharge Criteria: Tolerates medication w/o severe side effects, Free of Suicidal thoughts, Normal sleep pattern, Ability to care for self, Reduction of target symptoms Discharge to:: Home <Zonia José - Last Filed: 01/27/17 14:06> - Diagnosis (1) Schizoaffective disorder, bipolar type Status: Acute Interventions: 01/27/17 14:05 Psychoeducation/psychotherapy Psychopharmacology/adjustment of medications as needed/ monitoring possible side effects Evaluate pt on daily basis Compliance with medications and follow up appointments Long acting medication if pt is noncompliant with pill form Suicide and homicide risk assessment and prevention, coping strategies, safety plan Relapse prevention Reduction of symptoms Improve functional status Possible assertive community treatment Cognitive behavioral therapy Family involvement Possible social skill training as outpatient
[2017-01-27 07:43] LABS: BASO # 0.04 K/mm3 (0.0-2.0); BASO % 0.4 % (0.0-3.0); EOS # 0.1 (0.0-0.7); EOS % 1.2 % (1.5-5.0); GRAN # 4.41 (1.4-6.5); GRAN % 45.4 % (50.0-68.0); HEMATOCRIT 33.8 % (36.0-48.0); LYMPH # 4.4 (1.2-3.4); MEAN CELL VOLUME 82.2 fl (80.0-105.0); MEAN PLATELET VOLUME 8.2 fl (7.0-11.0); MONO # 0.8 (0.1-0.6); RED CELL DISTRIBUTION WIDTH 17.3 % (11.5-14.5); WHITE BLOOD COUNT 9.7 10^3/ul (4.5-11.0)
[2017-01-27 08:12] LABS: FREE T4 0.94 ng/dL (0.78-2.19)
--- NOTE | 2017-01-27 08:12 | RAD ---
HISTORY: PES eval COMPARISON: Comparison is made to 01/03/2017 FINDINGS: LUNGS: No active pulmonary disease. PLEURA: No significant pleural effusion identified, no pneumothorax apparent. CARDIOVASCULAR: Normal. OSSEOUS STRUCTURES: No significant abnormalities. VISUALIZED UPPER ABDOMEN: Normal. OTHER FINDINGS: None. IMPRESSION: No active disease.
[2017-01-27 08:20] LABS: ALB/GLOB RATIO 1.2 (1.1-1.8); ALKALINE PHOSPHATASE 83 U/L (38-126); ALT/SGPT 36 U/L (7-56); AST/SGOT 22 U/L (14-36); BLOOD UREA NITROGEN 6 mg/dL (7-21); CALCIUM 8.8 mg/dL (8.4-10.5); CARBON DIOXIDE 23 mmol/L (21-33); CHLORIDE 105 mmol/L (95-110); CHOLESTEROL 215 mg/dL (130-200); GFR AFRICAN-AMERICAN > 60; GLUCOSE,FASTING 121 mg/dL (65-110); GLUCOSE,RANDOM 121 mg/dL (70-110); POTASSIUM 4.1 mmol/L (3.6-5.0); SODIUM 139 mmol/L (132-148); TOTAL PROTEIN 6.9 g/dL (5.8-8.3)
[2017-01-27 08:26] LABS: THYROID STIMULATING HORMONE 1.13 mIU/mL (0.46-4.68)
[2017-01-27 08:37] LABS: BILIRUBIN,TOTAL 0.4 mg/dL (0.2-1.3)
--- NOTE | 2017-01-27 08:41 | CARD ---
APPROVED REPORT EKG Measurement Heart [id number] <Conclusion> Sinus tachycardia Possible Left atrial enlargement Left ventricular hypertrophy ST_T Changes in I and AVL.
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
--- NOTE | 2017-01-27 21:33 | CON ---
DATE: 01/27/2017 HISTORY OF PRESENT ILLNESS: I know Gato fairly well from many consults that she has been in the psychiatric floor. She presents this time with complaints of suicidal ideation for about two weeks now. She tells us she is hearing voices, who are telling her to kill herself. She was going to cut herself with a knife. She was told that if she did this, she would be reborn into another life, that is what she is hearing, and then she got organized and called the suicide hotline and she was sent to the emergency room at [facility]. PAST MEDICAL HISTORY: She has a past medical history of hypertension, diabetes, suicidal thoughts in the past. She has had seizures at age 14, bipolar, depression, and schizophrenia. SOCIAL HISTORY: She still smokes. No apparent alcohol or drugs. ALLERGIES: NO KNOWN DRUG ALLERGIES. MEDICATIONS: She takes a bunch of medications for her blood pressure and depression and diabetes. She is on Clozaril, Cogentin, Norvasc, Zoloft, Colace, Cozaar, Ecotrin, iron, Glucophage, Zetia. That is what she is supposed to be on. Right now, she is on Colace, Cozaar, Ecotrin, iron, Glucophage, Maalox, milk of magnesia, Tylenol, and Zetia. There will be some psychiatric medications that the psychiatrist will adjust and because her blood pressure is 123/86, I am not going to put her on the rest of her blood pressure medications unless they go higher. I gave her one of them and will hold off on the others until we see how she progresses. REVIEW OF SYSTEMS: She is sleeping in bed. She is arousable, able to give me a history, but she is tired. She is still not feeling well yet. No acute vision or hearing changes, but she is hearing voices telling her to do things. Very fatigued and tired. No chest pain. No shortness of breath. No abdominal pain. No problems urinating. No back pain. No skin issues. She is definitely depressed. Suicidal thoughts and also anxious. PHYSICAL EXAMINATION: GENERAL: She is calm, in bed, a little tired, answering the questions. She is very sleepy, but alert and oriented x3. VITAL SIGNS: She has 98.2 temperature, 91 pulse, 16 respiratory rate, 141/91 blood pressure when she came in that is 136/86 now and 96% O2 sat. HEENT: Head is atraumatic, normocephalic. Extraocular muscles intact. Pupil equally reactive to light and accommodation. Mouth is moist. NECK: Supple. Thyroid midline. No palpable appreciable lymphadenopathy at this time. HEART: Regular rate. Normal S1 and S2. LUNGS: Decreased breath sounds. Clear to auscultation. ABDOMEN: Soft, nontender, positive bowel sounds, mildly obese. EXTREMITIES: No edema. NEUROLOGIC: GCS is 15. Cranial nerves II through XII grossly intact. She could smile. She could stick out her tongue in midline. Hard to really do a good neurological assessment since she is lying in the bed sleeping. Alert and oriented x3, just tired. She has both suicidal ideation and hallucinations. SKIN: For the most part is warm and dry. LABORATORY DATA: She had multiple tests done. When she came in, she had a 139 sodium, potassium 4.1. BUN of 6, creatinine 0.4, GFR was greater than 60. Sugar was 120 and 121, and calcium was 8.8. AST is 22, ALT is 36, alkaline phosphatase is 83, total protein is 6.9, albumin is 3.8, globulin is 3.1. TSH is 1.13. White count when she came in was 12 and is now down to 9.7. She has a 11.5 hemoglobin, 32.8 hematocrit with 308 platelets. Chest x-ray, no acute disease. EKG is pending. ASSESSMENT AND PLAN: She is here for suicidal ideation, hearing voices, depression, auditory hallucinations, hypertension, diabetes, which we will keep an eye on daily. Hopefully, she will improve with psychiatric care. She has done that in the past. Encourage her to eat and to participate. We will follow. Jason Contreras DO
--- NOTE | 2017-01-28 08:58 | PCM.PYCHPN ---
Psychiatric Progress Note - Psychiatric Progress Note Patient seen today, length of contact: 25 min Patient Chief Complaint: "so-so" Problems Identified/Issues Discussed: I reviewed recent notes and met with patient at bedside. Patient remains oriented x3, superficially cooperative. Reports that she is feeling "so-so". She denies recurrence of hallucinations or suicidal thoughts. Patient doesn't appear to be actively responding to internal stimuli though she appears internally preoccupied and tired. She is not overtly bizarre during my visit. Nursing notes also indicates that patient has been in good control and seclusive on the unit. Cooperative with staff requests. Presently patient denies having any new discomfort or pain and has been tolerating medications on the unit. There were no behavioral issues overnight. Diagnostic Results: Schizoaffective Disorder Medication Change: No Medical Record Reviewed: Yes Mental Status Examination - Cognitive Function Orientation: Person, Place, Situation - Mood Mood: Neutral ( "so-so") - Affect Affect: Flat - Formal Thought Process Formal Thought Process: Hallucinations (denies today), Circumstantial - Homicidal Ideation Homicidal Ideation: No Goal/Treatment Plan - Goal/Treatment Plan Progress Toward Problem(s) and Goals/Treatment Plan: * c/w current tx and plan * No new weekend labs thus far * Vitals reviewed and noted below: Selected Entries 01/27/17 01/27/17 01/27/17 06:57 07:02 14:32 Temperature 98.4 F 98.4 F Pulse Rate 80 80 Respiratory 20 18 Rate Blood Pressure 123/86 123/86 126/82
[2017-01-28] MEDS: Iron Complex Polysacch 150mg Cap PO SCH (09:50)
--- NOTE | 2017-01-28 11:47 | PN ---
DATE: SUBJECTIVE: I saw Gato this morning resting in bed. She is actually much more alert this morning, smiling, talking to me in good spirits. She said she started to feel better and her auditory hallucinations are winding up. MEDICATIONS: Clozaril, Cogentin, Colace, Cozaar, Ecotrin, Ferrex, Glucophage, MiraLax, milk of magnesia, Norvasc, Tylenol, Zetia, and Zoloft. PHYSICAL EXAMINATION: VITAL SIGNS: Vital signs are 98.2 temperature, 83 pulse, 113/70 blood pressure and 22 respiratory rate. HEENT: Head is atraumatic, normocephalic. Throat is moist. NECK: Supple. HEART: Regular rate. LUNGS: Clear to auscultation. ABDOMEN: Soft and obese. EXTREMITIES: No edema. LABORATORY DATA: She has 9.7 white count, 11.5 hemoglobin, 308 platelets that was yesterday, 139 sodium, potassium 4.2, BUN 6, creatinine 0.4, GFR greater than 60, sugar last one 167, calcium is 8.8, total bilirubin is 0.4. AST is 22, ALT is 36, alkaline phosphatase is 83, total protein is 6.9, albumin is 3.8. TSH is 1.13. ASSESSMENT AND PLAN: We will continue with aggressive treatment and care as per psychiatry, and I do believe she is trying to improve again. Hope this will continue. I will see her tomorrow. Jason Contreras DO
--- NOTE | 2017-01-29 08:57 | PCM.PYCHPN ---
Psychiatric Progress Note - Psychiatric Progress Note Patient seen today, length of contact: 25 min Patient Chief Complaint: "so-so" Problems Identified/Issues Discussed: I reviewed recent notes and met with patient at bedside. Patient remains oriented x3, superficially cooperative. Reports that she is feeling "so-so". She denies recurrence of hallucinations or suicidal thoughts. Patient doesn't appear to be actively responding to internal stimuli though she appears internally preoccupied and tired. She is not overtly bizarre during my visit. Presently patient denies having any new discomfort or pain and has been tolerating medications on the unit Nursing notes indicates that patient has been in good control and seclusive on the unit at times. Cooperative with staff requests. She is generally appropriate with staff and patients. There were no behavioral issues over the weekend. Diagnostic Results: Schizoaffective Disorder Medication Change: No Medical Record Reviewed: Yes Mental Status Examination - Cognitive Function Orientation: Person, Place, Situation Attention: WNL - Mood Mood: Neutral ( "so-so") - Affect Affect: Flat - Speech Speech: Soft - Formal Thought Process Formal Thought Process: Hallucinations (denied all weekend), Circumstantial - Suicidal Ideation Suicidal Ideation: No - Homicidal Ideation Homicidal Ideation: No Goal/Treatment Plan - Goal/Treatment Plan Progress Toward Problem(s) and Goals/Treatment Plan: * c/w current tx and plan * Appreciate f/u by Dr. Contreras on 01/28/17 * No new weekend labs * Vitals reviewed and noted below: Selected Entries 01/28/17 01/28/17 01/28/17 07:24 09:49 16:00 Temperature 98.2 F Pulse Rate 83 98 H Respiratory 22 Rate Blood Pressure 113/73 113/73 129/95 H
[2017-01-29] MEDS: Iron Complex Polysacch 150mg Cap PO SCH (09:20)
[2017-01-30] MEDS: Iron Complex Polysacch 150mg Cap PO SCH (08:37)
--- NOTE | 2017-01-30 09:19 | PN ---
DATE: 01/29/2017 SUBJECTIVE: I saw Gato resting comfortably in bed in psychiatric floor. She slept well, in good spirits, smiling, no complaints all night long. She said she did well as last night. MEDICATIONS: On Clozaril, Cogentin, Colace, Cozaar, Ecotrin, Iron, Glucophage, milk of magnesia, MiraLax, Norvasc, Tylenol, Zetia, and Zoloft. PHYSICAL EXAMINATION: VITAL SIGNS: 98.2 temperature, 94 pulse, 102/63 blood pressure, 20 respiratory rate. HEENT: Head is atraumatic and normocephalic. Throat is moist. NECK: Supple. HEART: Regular rate. LUNGS: Clear to auscultation. ABDOMEN: Soft and obese. EXTREMITIES: No edema. LABORATORY DATA: She has a 9.7 white count, 11.5 hemoglobin, 33.8 hematocrit and 308 platelets. Last blood sugar was 146. 139 sodium, potassium 4.1, BUN is 6, creatinine 0.4, GFR is greater that 60, sugar is 121, AST is 22, ALT is 36, alkaline phosphatase is 83. TSH is 1.13. RPR is nonreactive. ASSESSMENT AND PLAN: She is pleasant right now, tells me she is feeling better, she had suicidal ideation, depression, hypertension, and diabetes. Encourage her to participate in group and take her medications. Continue to improve with psychiatric care. We will follow. Jason Contreras DO
--- NOTE | 2017-01-30 10:41 | PN ---
DATE: SUBJECTIVE: I saw Gato resting comfortably in bed, in psychiatric floor. She is sleeping. She was easily arousable. No complaints. She tells me she is getting better and taking her medications. MEDICATIONS: She is on Clozaril, Cogentin, Colace, Cozaar, Ecotrin, iron, Glucophage, MiraLax, milk of magnesia, Norvasc, Tylenol, Zetia, and Zoloft. PHYSICAL EXAMINATION: VITAL SIGNS: 98.2 temp, 100 pulse, 128/85 blood pressure, and 20 respiratory rate. ASSESSMENT AND PLAN: She is here for suicidal ideation, depression, auditory hallucinations, hypertension, and diabetes. I encouraged her to participate in groups and take the medications. Last blood sugar was 135, which was good. Overall, she is doing well. No complaints and the staff said she slept well and has no complaints either. We will follow. Jason Contreras DO [email or web address]
--- NOTE | 2017-01-30 17:36 | PCM.PYCHPN ---
Psychiatric Progress Note - Psychiatric Progress Note Patient seen today, length of contact: 25 min Patient Chief Complaint: "I M doing just fine, no visual hallucinations, no acute deviation from my mental status,,," Problems Identified/Issues Discussed: Suicide/ homicide prevention, past psychiatric h/o, current psychiatric symptoms , medical problems, risk/benefits and alternatives of medications, medications compliance, coping strategies, substance abuse h/o, relapse prevention, importance of follow up with psychiatrist and therapist, discharge plan. Medical Problems: hypertension, diabetes, obesity Diagnostic Results: 01/27/17 07:39 01/27/17 07:39 Lab Results 01/30/17 16:05: POC Glucose (mg/dL) 186 H 01/30/17 12:02: POC Glucose (mg/dL) 117 H 01/30/17 07:38: POC Glucose (mg/dL) 135 H 01/29/17 22:48: POC Glucose (mg/dL) 111 H 01/29/17 16:32: POC Glucose (mg/dL) 174 H 01/29/17 11:48: POC Glucose (mg/dL) 132 H 01/29/17 07:55: POC Glucose (mg/dL) 146 H 01/28/17 23:14: POC Glucose (mg/dL) 184 H 01/28/17 17:47: POC Glucose (mg/dL) 193 H 01/28/17 11:19: POC Glucose (mg/dL) 161 H 01/28/17 07:27: POC Glucose (mg/dL) 167 H 01/27/17 23:10: POC Glucose (mg/dL) 143 H 01/27/17 16:34: POC Glucose (mg/dL) 181 H 01/27/17 11:57: POC Glucose (mg/dL) 144 H 01/27/17 07:39: RPR Nonreactive 01/27/17 07:39: Free T4 0.94, TSH 3rd Generation 1.13 01/27/17 07:39: Sodium 139, Potassium 4.1, Chloride 105, Carbon Dioxide 23, Anion Gap 15, BUN 6 L, Creatinine 0.4 L, Est GFR ( Amer) > 60, Est GFR ( Non-Af Amer) > 60, Random Glucose 121 H, Fasting Glucose 121 H, Calcium 8.8, Total Bilirubin 0.4, AST 22, ALT 36, Alkaline Phosphatase 83, Total Protein 6.9 , Albumin 3.8, Globulin 3.1, Albumin/Globulin Ratio 1.2, Triglycerides 221 H, Cholesterol 215 H, LDL Cholesterol Direct 163 H, HDL Cholesterol 25 L 01/27/17 07:39: WBC 9.7, RBC 4.11, Hgb 11.5 L, Hct 33.8 L, MCV 82.2, MCH 28.0, MCHC 34.0, RDW 17.3 H, Plt Count 308, MPV 8.2, Gran % 45.4 L, Lymph % (Auto) 45.0 H, [place] % (Auto) 8.0 H, Eos % (Auto) 1.2 L, Baso % (Auto) 0.4, Gran # 4.41 , Lymph # 4.4 H, [place] # 0.8 H, Eos # 0.1, Baso # 0.04 01/27/17 07:37: POC Glucose (mg/dL) 120 H 01/26/17 23:55: POC Glucose (mg/dL) 188 H 01/26/17 17:55: Alcohol, Quantitative < 10 01/26/17 17:55: Salicylates < 1 L, Acetaminophen < 10.0 L 01/26/17 17:55: Sodium 141, Potassium 3.8, Chloride 105, Carbon Dioxide 22, Anion Gap 18, BUN 8, Creatinine 0.5, Est GFR ( Amer) > 60, Est GFR (Non- Af Amer) > 60, Random Glucose 170 H, Calcium 9.3, Total Bilirubin 0.3, AST 31, ALT 37, Alkaline Phosphatase 99, Total Protein 8.0, Albumin 4.5, Globulin 3.5, Albumin/Globulin Ratio 1.3 01/26/17 17:55: WBC 12.0 H, RBC 4.35, Hgb 12.3, Hct 35.8 L, MCV 82.3, MCH 28.3, MCHC 34.4, RDW 17.2 H, Plt Count 337, MPV 8.4, Gran % 54.1, Lymph % (Auto) 37.9 H, [place] % (Auto) 7.0 H, Eos % (Auto) 0.7 L, Baso % (Auto) 0.3, Gran # 6.50, Lymph # 4.6 H, [place] # 0.8 H, Eos # 0.1, Baso # 0.04 01/26/17 17:43: Urine Opiates Screen Negative, Urine Methadone Screen Negative, Ur Barbiturates Screen Negative, Ur Phencyclidine Scrn Negative, Ur Amphetamines Screen Negative, U Benzodiazepines Scrn Negative, U Oth Cocaine Metabols Negative, U Cannabinoids Screen Negative 01/26/17 17:43: Urine Color Yellow, Urine Appearance Clear, Urine pH 6.5, Ur Specific [place] 1.025, Urine Protein Negative, Urine Glucose (UA) Negative, Urine Ketones Trace H, Urine Blood Negative, Urine Nitrate Negative, Urine Bilirubin Negative, Urine Urobilinogen 0.2, Ur Leukocyte Esterase Negative, Urine HCG, Qual Negative Vital Signs Temp Pulse Pulse Resp BP Pulse Ox 01/30/17 16:09 100 H 122/84 01/30/17 08:46 103/80 01/29/17 19:00 100 H 128/85 01/29/17 09:19 102/63 01/29/17 07:07 98.2 F 94 H 20 102/63 01/28/17 16:00 98 H 129/95 H 01/28/17 09:49 113/73 01/28/17 07:24 98.2 F 83 22 113/73 01/27/17 14:32 126/82 01/27/17 07:02 98.4 F 80 18 123/86 01/27/17 06:57 98.4 F 80 20 123/86 01/26/17 23:24 90 19 01/26/17 20:47 98.2 F 91 H 16 141/91 H 96 01/26/17 17:11 98.9 F 105 H 20 143/94 H 98 DSM 5 Symptoms Update: shortly patient is 40 years old -[place] female, long and debilitating history of schizophrenia, treatment resistant, multiple admissions to the psychiatric inpatient unit in the past, including to this hospital, for this year only it is the fifth admission to the [facility], most recent was less than a month ago to this hospital, patient is followed by [facility] PACT team, pt is on clozaril and Haldol Dec. as per PES note pt said that she had command type hallucinations, was verbalizing thoughts of killing herself by cutting, needs further evaluation and stabilization. pt presented with good personal hygiene, acceptable ADLs. was seen at the [facility]. patient presented to be disorganized, sleepy, has word salad, patient did not even remember the name of her mother, patient still obsessed with imaginary Mr. Paige whom she is drawing constantly. meds resumed As per RN, pt compliant with meds, socially appropriate. impression: Schizoaffective disorder, bipolar type Medication Change: No Medical Record Reviewed: Yes Consults ordered or reviewed: medical consult appreciated Mental Status Examination - Cognitive Function Orientation: Person, Place, Situation Attention: WNL Concentration: Poor Association: Loose Fund of Knowledge: Poor - Mood Mood: Neutral ( "so-so") - Affect Affect: Flat - Speech Speech: Soft - Formal Thought Process Formal Thought Process: Hallucinations (denied all weekend), Delusions ( erotomanic delusion about ), Circumstantial - Suicidal Ideation Suicidal Ideation: No - Homicidal Ideation Homicidal Ideation: No Goal/Treatment Plan - Goal/Treatment Plan Need for Continued Stay: Remain at risks for inpatient hospitalization, Severe depression anxiety, Discharge may exacerbated symptoms, Severe functional impairment Progress Toward Problem(s) and Goals/Treatment Plan: milieu, structure, supportive therapy medications were confirmed by patient treatment team 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
[2017-01-31] MEDS: Iron Complex Polysacch 150mg Cap PO SCH (09:34)
--- NOTE | 2017-01-31 10:20 | PN ---
DATE: SUBJECTIVE: She was sleeping comfortably in 5-B in psychiatric unit. She denied any complaints. This morning, she is taking the medications, trying to go to groups. MEDICATIONS: She is on Clozaril, Cogentin, Colace, Cozaar, Ecotrin, iron, Glucophage, Maalox, milk of magnesia, Norvasc, Tylenol, Zetia, and Zoloft. PHYSICAL EXAMINATION: VITAL SIGNS: 98.2 temperature, 81 pulse, 122/84 blood pressure, and 20 respiratory rate. HEENT: Head is atraumatic and normocephalic. HEART: Regular rate. LUNGS: Clear to auscultation. EXTREMITIES: No edema. LABORATORY DATA: Last lab she had was a blood sugar which was 112, which is good. ASSESSMENT AND PLAN: We will continue aggressive treatment as per psychiatry except for suicidal ideation, depression, auditory hallucinations, hypertension, and diabetes. Continue as per psychiatry. will improve with medication adjustment as per psychiatry. Jason Contreras DO MTDSantos
--- NOTE | 2017-01-31 15:01 | PCM.PYCHPN ---
Psychiatric Progress Note - Psychiatric Progress Note Patient seen today, length of contact: 30min Patient Chief Complaint: "I M good, I am in love" Medical Problems: hypertension, diabetes, obesity see medical notes for more detailed info Diagnostic Results: 01/27/17 07:39 01/27/17 07:39 Lab Results 01/30/17 16:05: POC Glucose (mg/dL) 186 H 01/30/17 12:02: POC Glucose (mg/dL) 117 H 01/30/17 07:38: POC Glucose (mg/dL) 135 H 01/29/17 22:48: POC Glucose (mg/dL) 111 H 01/29/17 16:32: POC Glucose (mg/dL) 174 H 01/29/17 11:48: POC Glucose (mg/dL) 132 H 01/29/17 07:55: POC Glucose (mg/dL) 146 H 01/28/17 23:14: POC Glucose (mg/dL) 184 H 01/28/17 17:47: POC Glucose (mg/dL) 193 H 01/28/17 11:19: POC Glucose (mg/dL) 161 H 01/28/17 07:27: POC Glucose (mg/dL) 167 H 01/27/17 23:10: POC Glucose (mg/dL) 143 H 01/27/17 16:34: POC Glucose (mg/dL) 181 H 01/27/17 11:57: POC Glucose (mg/dL) 144 H 01/27/17 07:39: RPR Nonreactive 01/27/17 07:39: Free T4 0.94, TSH 3rd Generation 1.13 01/27/17 07:39: Sodium 139, Potassium 4.1, Chloride 105, Carbon Dioxide 23, Anion Gap 15, BUN 6 L, Creatinine 0.4 L, Est GFR ( Amer) > 60, Est GFR ( Non-Af Amer) > 60, Random Glucose 121 H, Fasting Glucose 121 H, Calcium 8.8, Total Bilirubin 0.4, AST 22, ALT 36, Alkaline Phosphatase 83, Total Protein 6.9 , Albumin 3.8, Globulin 3.1, Albumin/Globulin Ratio 1.2, Triglycerides 221 H, Cholesterol 215 H, LDL Cholesterol Direct 163 H, HDL Cholesterol 25 L 01/27/17 07:39: WBC 9.7, RBC 4.11, Hgb 11.5 L, Hct 33.8 L, MCV 82.2, MCH 28.0, MCHC 34.0, RDW 17.3 H, Plt Count 308, MPV 8.2, Gran % 45.4 L, Lymph % (Auto) 45.0 H, [place] % (Auto) 8.0 H, Eos % (Auto) 1.2 L, Baso % (Auto) 0.4, Gran # 4.41 , Lymph # 4.4 H, [place] # 0.8 H, Eos # 0.1, Baso # 0.04 01/27/17 07:37: POC Glucose (mg/dL) 120 H 01/26/17 23:55: POC Glucose (mg/dL) 188 H 01/26/17 17:55: Alcohol, Quantitative < 10 01/26/17 17:55: Salicylates < 1 L, Acetaminophen < 10.0 L 01/26/17 17:55: Sodium 141, Potassium 3.8, Chloride 105, Carbon Dioxide 22, Anion Gap 18, BUN 8, Creatinine 0.5, Est GFR ( Amer) > 60, Est GFR (Non- Af Amer) > 60, Random Glucose 170 H, Calcium 9.3, Total Bilirubin 0.3, AST 31, ALT 37, Alkaline Phosphatase 99, Total Protein 8.0, Albumin 4.5, Globulin 3.5, Albumin/Globulin Ratio 1.3 01/26/17 17:55: WBC 12.0 H, RBC 4.35, Hgb 12.3, Hct 35.8 L, MCV 82.3, MCH 28.3, MCHC 34.4, RDW 17.2 H, Plt Count 337, MPV 8.4, Gran % 54.1, Lymph % (Auto) 37.9 H, [place] % (Auto) 7.0 H, Eos % (Auto) 0.7 L, Baso % (Auto) 0.3, Gran # 6.50, Lymph # 4.6 H, [place] # 0.8 H, Eos # 0.1, Baso # 0.04 01/26/17 17:43: Urine Opiates Screen Negative, Urine Methadone Screen Negative, Ur Barbiturates Screen Negative, Ur Phencyclidine Scrn Negative, Ur Amphetamines Screen Negative, U Benzodiazepines Scrn Negative, U Oth Cocaine Metabols Negative, U Cannabinoids Screen Negative 01/26/17 17:43: Urine Color Yellow, Urine Appearance Clear, Urine pH 6.5, Ur Specific [place] 1.025, Urine Protein Negative, Urine Glucose (UA) Negative, Urine Ketones Trace H, Urine Blood Negative, Urine Nitrate Negative, Urine Bilirubin Negative, Urine Urobilinogen 0.2, Ur Leukocyte Esterase Negative, Urine HCG, Qual Negative Vital Signs Temp Pulse Pulse Resp BP Pulse Ox 01/30/17 16:09 100 H 122/84 01/30/17 08:46 103/80 01/29/17 19:00 100 H 128/85 01/29/17 09:19 102/63 01/29/17 07:07 98.2 F 94 H 20 102/63 01/28/17 16:00 98 H 129/95 H 01/28/17 09:49 113/73 01/28/17 07:24 98.2 F 83 22 113/73 01/27/17 14:32 126/82 01/27/17 07:02 98.4 F 80 18 123/86 01/27/17 06:57 98.4 F 80 20 123/86 01/26/17 23:24 90 19 01/26/17 20:47 98.2 F 91 H 16 141/91 H 96 01/26/17 17:11 98.9 F 105 H 20 143/94 H 98 Temp Pulse Resp BP Pulse Ox 98.2 F 81 20 121/88 96 01/31/17 07:14 01/31/17 07:14 01/31/17 07:14 01/31/17 09:35 01/26/17 20:47 Laboratory Results - last 24 hr 01/30/17 01/30/17 01/31/17 16:05 21:58 07:36 POC Glucose (mg/dL) 186 H 183 H 112 H 01/31/17 11:20 POC Glucose (mg/dL) 167 H DSM 5 Symptoms Update: shortly patient is 40 years old -[place] female, long and debilitating history of schizophrenia, treatment resistant, multiple admissions to the psychiatric inpatient unit in the past, including to this hospital, for this year only it is the fifth admission to the [facility], most recent was less than a month ago to this hospital, patient is followed by [facility] PA[facility] team, pt is on clozaril and Haldol Dec. as per PES note pt said that she had command type hallucinations, was verbalizing thoughts of killing herself by cutting, needs further evaluation and stabilization. pt was seen in her room with GUILLERMO Hawkins. appeared withdrawn, sleepy, pt had a lot of drawings of imaginary "", saying that "happily Gato and ". pt was not willing to talk much, flat affect, speech underproductive, poverty of speech and thoughts. as per SW report patient did not even remember the name of her mother, who is going to come for the family meeting and PACT team meeting tomorrow. MSE: Pt was alert, oriented in self, time and place. Pt deemed to be unreliable historian, superficially well related to this publications writer. Pt looks stated age, good personal hygiene, good ADLs, psychomotor retardation, speech was: underproductive, low volume, intermittent eye contact, mood described: "I am fine, I am in love", affect: constricted but reactive, mood congruent, thought process: disorganized , thought content: denied SI/ HI, denied v/a/t hallucinations, denied paranoid ideation but pt delusional (erotomanic with ), pt is disorganized, preoccupied insight: is limited, judgment: is fair , impulses are well controlled. 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 Injectable Haldol 100mg q monthly Injection was due is on January 11 cogentin 1mg po bid for EPS Medical consult appreciated Collateral information appreciated PACT team We'll monitor closely zoloft 50mg daily for depression possible family meeting in regards of possible senior care placement, 02/01/17 will monitor Gran# clozaril [facility] contacted Will monitor closely Pt was educated about risk/benefits and alternatives of medications, coping strategies (safety plan, suicide prevention), relapse prevention, importance of follow up with psychiatrist and therapist, stay away from drugs/alcohol/smoking Medication Change: No Medical Record Reviewed: Yes Consults ordered or reviewed: medical consult appreciated Mental Status Examination - Cognitive Function Orientation: Person, Place, Situation Attention: WNL Concentration: Poor Association: Loose Fund of Knowledge: Poor - Mood Mood: Neutral ( "so-so") - Affect Affect: Flat - Speech Speech: Soft - Formal Thought Process Formal Thought Process: Hallucinations (denied all weekend), Delusions ( erotomanic delusion about ), Circumstantial - Suicidal Ideation Suicidal Ideation: No - Homicidal Ideation Homicidal Ideation: No Goal/Treatment Plan - Goal/Treatment Plan Need for Continued Stay: Remain at risks for inpatient hospitalization, Severe depression anxiety, Discharge may exacerbated symptoms, Severe functional impairment Estimated Date of D/C: 02/03/17 (e'll monitor closely)
--- NOTE | 2017-02-01 09:09 | PN ---
DATE: SUBJECTIVE: I saw Gato resting comfortably in bed. She is very sleepy, but arousable. No complaints this morning. She is eating and she is taking the medication. MEDICATIONS: She is on Clozaril, Cogentin, Colace, Cozaar, Ecotrin, iron, Glucophage, Maalox, milk of magnesia, Norvasc, Tylenol, Zetia, and Zoloft. PHYSICAL EXAMINATION: VITAL SIGNS: 97.8 temp, 59 pulse, 123/86 blood pressure, 20 respiratory rate, and 99% O2 saturation on room air. HEENT: Atraumatic and normocephalic. Throat is moist. NECK: Supple. HEART: Regular rate. LUNGS: Clear to auscultation. ABDOMEN: Soft and obese. EXTREMITIES: No edema. LABORATORY DATA: Last labs with 112 blood sugar. ASSESSMENT AND PLAN: We will continue as per psychiatry. She has suicidal ideation, depression, auditory hallucination, hypertension, and diabetes. We will continue to follow as per psychiatry. Jason Contreras DO
[2017-02-01] MEDS: Iron Complex Polysacch 150mg Cap PO SCH (10:17)
--- NOTE | 2017-02-01 16:00 | PCM.PYCHPN ---
Psychiatric Progress Note - Psychiatric Progress Note Patient seen today, length of contact: 30min Patient Chief Complaint: "I M good, I am at my baseline..>" Medical Problems: hypertension, diabetes, obesity see medical notes for more detailed info Diagnostic Results: 01/27/17 07:39 01/27/17 07:39 Lab Results 01/30/17 16:05: POC Glucose (mg/dL) 186 H 01/30/17 12:02: POC Glucose (mg/dL) 117 H 01/30/17 07:38: POC Glucose (mg/dL) 135 H 01/29/17 22:48: POC Glucose (mg/dL) 111 H 01/29/17 16:32: POC Glucose (mg/dL) 174 H 01/29/17 11:48: POC Glucose (mg/dL) 132 H 01/29/17 07:55: POC Glucose (mg/dL) 146 H 01/28/17 23:14: POC Glucose (mg/dL) 184 H 01/28/17 17:47: POC Glucose (mg/dL) 193 H 01/28/17 11:19: POC Glucose (mg/dL) 161 H 01/28/17 07:27: POC Glucose (mg/dL) 167 H 01/27/17 23:10: POC Glucose (mg/dL) 143 H 01/27/17 16:34: POC Glucose (mg/dL) 181 H 01/27/17 11:57: POC Glucose (mg/dL) 144 H 01/27/17 07:39: RPR Nonreactive 01/27/17 07:39: Free T4 0.94, TSH 3rd Generation 1.13 01/27/17 07:39: Sodium 139, Potassium 4.1, Chloride 105, Carbon Dioxide 23, Anion Gap 15, BUN 6 L, Creatinine 0.4 L, Est GFR ( Amer) > 60, Est GFR ( Non-Af Amer) > 60, Random Glucose 121 H, Fasting Glucose 121 H, Calcium 8.8, Total Bilirubin 0.4, AST 22, ALT 36, Alkaline Phosphatase 83, Total Protein 6.9 , Albumin 3.8, Globulin 3.1, Albumin/Globulin Ratio 1.2, Triglycerides 221 H, Cholesterol 215 H, LDL Cholesterol Direct 163 H, HDL Cholesterol 25 L 01/27/17 07:39: WBC 9.7, RBC 4.11, Hgb 11.5 L, Hct 33.8 L, MCV 82.2, MCH 28.0, MCHC 34.0, RDW 17.3 H, Plt Count 308, MPV 8.2, Gran % 45.4 L, Lymph % (Auto) 45.0 H, [place] % (Auto) 8.0 H, Eos % (Auto) 1.2 L, Baso % (Auto) 0.4, Gran # 4.41 , Lymph # 4.4 H, [place] # 0.8 H, Eos # 0.1, Baso # 0.04 01/27/17 07:37: POC Glucose (mg/dL) 120 H 01/26/17 23:55: POC Glucose (mg/dL) 188 H 01/26/17 17:55: Alcohol, Quantitative < 10 01/26/17 17:55: Salicylates < 1 L, Acetaminophen < 10.0 L 01/26/17 17:55: Sodium 141, Potassium 3.8, Chloride 105, Carbon Dioxide 22, Anion Gap 18, BUN 8, Creatinine 0.5, Est GFR ( Amer) > 60, Est GFR (Non- Af Amer) > 60, Random Glucose 170 H, Calcium 9.3, Total Bilirubin 0.3, AST 31, ALT 37, Alkaline Phosphatase 99, Total Protein 8.0, Albumin 4.5, Globulin 3.5, Albumin/Globulin Ratio 1.3 01/26/17 17:55: WBC 12.0 H, RBC 4.35, Hgb 12.3, Hct 35.8 L, MCV 82.3, MCH 28.3, MCHC 34.4, RDW 17.2 H, Plt Count 337, MPV 8.4, Gran % 54.1, Lymph % (Auto) 37.9 H, [place] % (Auto) 7.0 H, Eos % (Auto) 0.7 L, Baso % (Auto) 0.3, Gran # 6.50, Lymph # 4.6 H, [place] # 0.8 H, Eos # 0.1, Baso # 0.04 01/26/17 17:43: Urine Opiates Screen Negative, Urine Methadone Screen Negative, Ur Barbiturates Screen Negative, Ur Phencyclidine Scrn Negative, Ur Amphetamines Screen Negative, U Benzodiazepines Scrn Negative, U Oth Cocaine Metabols Negative, U Cannabinoids Screen Negative 01/26/17 17:43: Urine Color Yellow, Urine Appearance Clear, Urine pH 6.5, Ur Specific [place] 1.025, Urine Protein Negative, Urine Glucose (UA) Negative, Urine Ketones Trace H, Urine Blood Negative, Urine Nitrate Negative, Urine Bilirubin Negative, Urine Urobilinogen 0.2, Ur Leukocyte Esterase Negative, Urine HCG, Qual Negative Vital Signs Temp Pulse Pulse Resp BP Pulse Ox 01/30/17 16:09 100 H 122/84 01/30/17 08:46 103/80 01/29/17 19:00 100 H 128/85 01/29/17 09:19 102/63 01/29/17 07:07 98.2 F 94 H 20 102/63 01/28/17 16:00 98 H 129/95 H 01/28/17 09:49 113/73 01/28/17 07:24 98.2 F 83 22 113/73 01/27/17 14:32 126/82 01/27/17 07:02 98.4 F 80 18 123/86 01/27/17 06:57 98.4 F 80 20 123/86 01/26/17 23:24 90 19 01/26/17 20:47 98.2 F 91 H 16 141/91 H 96 01/26/17 17:11 98.9 F 105 H 20 143/94 H 98 Temp Pulse Resp BP Pulse Ox 98.2 F 81 20 121/88 96 01/31/17 07:14 01/31/17 07:14 01/31/17 07:14 01/31/17 09:35 01/26/17 20:47 Laboratory Results - last 24 hr 01/30/17 01/30/17 01/31/17 16:05 21:58 07:36 POC Glucose (mg/dL) 186 H 183 H 112 H 01/31/17 11:20 POC Glucose (mg/dL) 167 H Temp Pulse Resp BP Pulse Ox 97.8 F 59 L 59 H 88/60 L 99 02/01/17 07:03 02/01/17 07:03 02/01/17 07:03 02/01/17 10:19 02/01/17 07:03 DSM 5 Symptoms Update: shortly patient is 40 years old -[place] female, long and debilitating history of schizophrenia, treatment resistant, multiple admissions to the psychiatric inpatient unit in the past, including to this hospital, for this year only it is the fifth admission to the [facility], most recent was less than a month ago to this hospital, patient is followed by [facility]CT team, pt is on clozaril and Haldol Dec. as per PES note pt said that she had command type hallucinations, was verbalizing thoughts of killing herself by cutting, needs further evaluation and stabilization. pt was seen iat the family be psychotic with patient mother, PACT team Leyla and pt, appeared withdrawn, superficially cooperative, pt was in agreement to go to the DTP. Family and PACT team were in agreement. pt was making superficial statements like "eLyla was very supportive, compliant and cooperative", this phrases which pt learned from multiple psych admissions. MSE: Pt was alert, oriented in self, time and place. Pt deemed to be unreliable historian, superficially well related to this fiction writer. Pt looks stated age, good personal hygiene, good ADLs, psychomotor retardation, speech was: underproductive, low volume, intermittent eye contact, mood described: "I am fine, I am at my baseline", affect: constricted but reactive, mood congruent, thought process: disorganized , thought content: denied SI/ HI, denied v/a/t hallucinations, denied paranoid ideation but pt delusional (erotomanic with ), pt is disorganized, preoccupied insight: is limited, judgment: is fair , impulses are well controlled. 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 Injectable Haldol 100mg q monthly Injection was due is on January 11 cogentin 1mg po bid for EPS Medical consult appreciated Collateral information appreciated PACT team We'll monitor closely zoloft 50mg daily for depression family meeting took place today 02/01/17, pt did not do well in the detention in the past, was offered to go to the DTP, pt and mother agreed will monitor Gran# clozaril [facility] contacted Will monitor closely Pt was educated about risk/benefits and alternatives of medications, coping strategies (safety plan, suicide prevention), relapse prevention, importance of follow up with psychiatrist and therapist, stay away from drugs/alcohol/smoking Medication Change: No Medical Record Reviewed: Yes Consults ordered or reviewed: medical consult appreciated Goal/Treatment Plan - Goal/Treatment Plan Need for Continued Stay: Remain at risks for inpatient hospitalization, Severe depression anxiety, Discharge may exacerbated symptoms, Severe functional impairment Estimated Date of D/C: 02/07/17 (e'll monitor closely)
--- NOTE | 2017-02-01 23:31 | CP.PCM.PN ---
<EDDY DUMONT - Last Filed: 02/01/17 23:18> Subjective - Date & Time of Evaluation Date of Evaluation: 02/01/17 Time of Evaluation: 22:30 - Subjective Subjective: Eddy Dumont DO PGY1 - Code STAR note Subjective: 41yo F admitted to the inpatient [facility] for depression and suicidal ideation. Had witnessed fall, code star called. Patient did not hit her head, and recalls events preceding and after the fall. She reports that she felt light headed and that her "knees just gave out." She had just received her medications and was walking back to her chair to sit. She denies LOC, memory loss, focal weakness or numbness, vision changes, YATES, CP, SOB, diaphoresis, anxiety. This has happened to her many times in the past, and is likely associated with polypharmacy. Objective: On exam, VSS stable, BP initially 144/102 HR 113, but after calming down, BP improved to 116/86 HR 99, SaO2 97%. She was in NAD, AAOx4, neurologically grossly intact, EOMI, CN II-XII grossly intact, 5/5 symmetric muscle strength b/ l UE and LE. Heart was RRR, normal S1, S2 with no M/G/R. Lungs CTA b/l. Patient got up from chair and was ambulating normally afterwards. A/P: Medications and labs reviewed. Stat EKG obtained shows NSR, no changes from prior EKG. Fall is likely due to psychogenic etiology vs polypharmacy. Will order orthostatics, and instruct to contact physician if positive. Patient seen, discussed, and reviewed with attending Dr. Gallardo Objective - Vital Signs/Intake and Output Vital Signs (last 24 hours): Temp Pulse Resp BP Pulse Ox 97.8 F 59 L 18 88/60 L 99 02/01/17 22:16 02/01/17 22:16 02/01/17 22:16 02/01/17 22:16 02/01/17 22:16 - Medications Medications: Current Medications Acetaminophen (Tylenol 325mg Tab) 650 mg PO Q4 PRN PRN Reason: Pain, Mild (1-3) Last Admin: 01/30/17 20:53 Dose: 650 mg Al Hydrox/Mg Hydrox/Simethicone (Maalox Plus 30 Ml) 30 ml PO DAILY PRN PRN Reason: Upset Stomach Amlodipine Besylate (Norvasc) 10 mg PO DAILY [facility] Last Admin: 02/01/17 10:19 Dose: Not Given Aspirin (Ecotrin) 81 mg PO DAILY [facility] Last Admin: 02/01/17 10:17 Dose: 81 mg Benztropine Mesylate (Cogentin) 1 mg PO AMHS [facility], [facility] Last Admin: 02/01/17 22:14 Dose: 1 mg Clozapine (Clozaril) 250 mg PO DAILY NITIN PRN Reason: Protocol Last Admin: 02/01/17 10:48 Dose: 250 mg Clozapine (Clozaril) 450 mg PO HS [facility] PRN Reason: Protocol Last Admin: 02/01/17 22:14 Dose: 450 mg Docusate Sodium (Colace) 100 mg PO BID [facility], [facility] Last Admin: 02/01/17 17:33 Dose: 100 mg Ezetimibe (Zetia) 10 mg PO DAILY [facility] Last Admin: 02/01/17 10:17 Dose: 10 mg Losartan Potassium (Cozaar) 100 mg PO DAILY [facility] Last Admin: 02/01/17 10:19 Dose: Not Given Magnesium Hydroxide (Milk Of Magnesia) 30 ml PO DAILY PRN PRN Reason: Constipation Metformin HCl (Glucophage) 1,000 mg PO BID [facility] Last Admin: 02/01/17 17:34 Dose: 1,000 mg Polysaccharide Iron Complex (Ferrex-150) 150 mg PO DAILY [facility] Last Admin: 02/01/17 10:17 Dose: 150 mg Sertraline HCl (Zoloft) 50 mg PO DAILY [facility] Last Admin: 02/01/17 10:17 Dose: 50 mg - Labs Labs: 01/27/17 07:39 01/27/17 07:39 <Yesi Gallardo - Last Filed: 02/01/17 23:48> Objective - Vital Signs/Intake and Output Vital Signs (last 24 hours): Temp Pulse Resp BP Pulse Ox 97.8 F 59 L 18 88/60 L 99 02/01/17 22:16 02/01/17 22:16 02/01/17 22:16 02/01/17 22:16 02/01/17 22:16 - Medications Medications: Current Medications Acetaminophen (Tylenol 325mg Tab) 650 mg PO Q4 PRN PRN Reason: Pain, Mild (1-3) Last Admin: 01/30/17 20:53 Dose: 650 mg Al Hydrox/Mg Hydrox/Simethicone (Maalox Plus 30 Ml) 30 ml PO DAILY PRN PRN Reason: Upset Stomach Amlodipine Besylate (Norvasc) 10 mg PO DAILY [facility] Last Admin: 02/01/17 10:19 Dose: Not Given Aspirin (Ecotrin) 81 mg PO DAILY [facility] Last Admin: 02/01/17 10:17 Dose: 81 mg Benztropine Mesylate (Cogentin) 1 mg PO AMHS [facility] Last Admin: 02/01/17 22:14 Dose: 1 mg Clozapine (Clozaril) 250 mg PO DAILY [facility] PRN Reason: Protocol Last Admin: 02/01/17 10:48 Dose: 250 mg Clozapine (Clozaril) 450 mg PO HS [facility] PRN Reason: Protocol Last Admin: 02/01/17 22:14 Dose: 450 mg Docusate Sodium (Colace) 100 mg PO BID [facility] Last Admin: 02/01/17 17:33 Dose: 100 mg Ezetimibe (Zetia) 10 mg PO DAILY [facility] Last Admin: 02/01/17 10:17 Dose: 10 mg Losartan Potassium (Cozaar) 100 mg PO DAILY [facility] Last Admin: 02/01/17 10:19 Dose: Not Given Magnesium Hydroxide (Milk Of Magnesia) 30 ml PO DAILY PRN PRN Reason: Constipation Metformin HCl (Glucophage) 1,000 mg PO BID [facility] Last Admin: 02/01/17 17:34 Dose: 1,000 mg Polysaccharide Iron Complex (Ferrex-150) 150 mg PO DAILY [facility] Last Admin: 02/01/17 10:17 Dose: 150 mg Sertraline HCl (Zoloft) 50 mg PO DAILY [facility] Last Admin: 02/01/17 10:17 Dose: 50 mg - Labs Labs: 01/27/17 07:39 01/27/17 07:39 Attending/Attestation - Attestation I have personally seen and examined this patient.: Yes I have fully participated in the care of the patient.: Yes I have reviewed all pertinent clinical information, including history, physical exam and plan: Yes Notes (Text): 02/01/17 23:38 Pt was noted to move well at all joints.No bruises noted on the skin. IMP:S/P fall,no clinical evidence of any injury
[2017-02-02] MEDS: Iron Complex Polysacch 150mg Cap PO SCH (10:05)
--- NOTE | 2017-02-02 10:41 | PN ---
SUBJECTIVE: I saw the patient this morning. She tells that she fell last night, she walked to the nurse and she did fall, they found her on the ground. No apparent distress. She was able to getup and walk, but I will order some physical therapy and see how stable she is. She might walk with a walker now. I saw her sleeping this morning in bed. She has been tried a lot. MEDICATIONS: She is on Clozaril, Cogentin, Colace, Cozaar, Ecotrin, iron, Glucophage, milk of magnesia, Norvasc, Maalox, Tylenol, Zetia, and Zoloft. PHYSICAL EXAMINATION: VITAL SIGNS: 98.1 temp, 83 pulse, 138/91 blood pressure, 116/86 blood pressure, 18 respiratory rate, and 99% O2 saturation on room air. HEENT: Atraumatic and normocephalic. Throat is moist. NECK: Supple. HEART: Regular rate. LUNGS: Clear to auscultation. ABDOMEN: Soft and obese. EXTREMITIES: No edema. She can move all 4 extremities with no pain at all at this time. Very tired at this time. LABORATORY DATA: 9.7 white count, 11.5 hemoglobin, and 308 platelets. Last blood sugar was 113. She is being seen by psychiatry, the house doctor came in last night for the fall. An EKG was done which is pending. No x-rays were ordered. I have ordered physical therapy for her. I told her to be careful when she gets up to start walking and be more aware of her surroundings, she understands that; hopefully, she will do well. Jason Contreras DO
--- NOTE | 2017-02-02 12:13 | PCM.PYCHPN ---
Psychiatric Progress Note - Psychiatric Progress Note Patient seen today, length of contact: 30min Patient Chief Complaint: "I fell yesterday, my knees gave up" Medical Problems: hypertension, diabetes, obesity see medical notes for more detailed info Diagnostic Results: 01/27/17 07:39 01/27/17 07:39 Lab Results 01/30/17 16:05: POC Glucose (mg/dL) 186 H 01/30/17 12:02: POC Glucose (mg/dL) 117 H 01/30/17 07:38: POC Glucose (mg/dL) 135 H 01/29/17 22:48: POC Glucose (mg/dL) 111 H 01/29/17 16:32: POC Glucose (mg/dL) 174 H 01/29/17 11:48: POC Glucose (mg/dL) 132 H 01/29/17 07:55: POC Glucose (mg/dL) 146 H 01/28/17 23:14: POC Glucose (mg/dL) 184 H 01/28/17 17:47: POC Glucose (mg/dL) 193 H 01/28/17 11:19: POC Glucose (mg/dL) 161 H 01/28/17 07:27: POC Glucose (mg/dL) 167 H 01/27/17 23:10: POC Glucose (mg/dL) 143 H 01/27/17 16:34: POC Glucose (mg/dL) 181 H 01/27/17 11:57: POC Glucose (mg/dL) 144 H 01/27/17 07:39: RPR Nonreactive 01/27/17 07:39: Free T4 0.94, TSH 3rd Generation 1.13 01/27/17 07:39: Sodium 139, Potassium 4.1, Chloride 105, Carbon Dioxide 23, Anion Gap 15, BUN 6 L, Creatinine 0.4 L, Est GFR ( Amer) > 60, Est GFR ( Non-Af Amer) > 60, Random Glucose 121 H, Fasting Glucose 121 H, Calcium 8.8, Total Bilirubin 0.4, AST 22, ALT 36, Alkaline Phosphatase 83, Total Protein 6.9 , Albumin 3.8, Globulin 3.1, Albumin/Globulin Ratio 1.2, Triglycerides 221 H, Cholesterol 215 H, LDL Cholesterol Direct 163 H, HDL Cholesterol 25 L 01/27/17 07:39: WBC 9.7, RBC 4.11, Hgb 11.5 L, Hct 33.8 L, MCV 82.2, MCH 28.0, MCHC 34.0, RDW 17.3 H, Plt Count 308, MPV 8.2, Gran % 45.4 L, Lymph % (Auto) 45.0 H, [place] % (Auto) 8.0 H, Eos % (Auto) 1.2 L, Baso % (Auto) 0.4, Gran # 4.41 , Lymph # 4.4 H, [place] # 0.8 H, Eos # 0.1, Baso # 0.04 01/27/17 07:37: POC Glucose (mg/dL) 120 H 01/26/17 23:55: POC Glucose (mg/dL) 188 H 01/26/17 17:55: Alcohol, Quantitative < 10 01/26/17 17:55: Salicylates < 1 L, Acetaminophen < 10.0 L 01/26/17 17:55: Sodium 141, Potassium 3.8, Chloride 105, Carbon Dioxide 22, Anion Gap 18, BUN 8, Creatinine 0.5, Est GFR ( Amer) > 60, Est GFR (Non- Af Amer) > 60, Random Glucose 170 H, Calcium 9.3, Total Bilirubin 0.3, AST 31, ALT 37, Alkaline Phosphatase 99, Total Protein 8.0, Albumin 4.5, Globulin 3.5, Albumin/Globulin Ratio 1.3 01/26/17 17:55: WBC 12.0 H, RBC 4.35, Hgb 12.3, Hct 35.8 L, MCV 82.3, MCH 28.3, MCHC 34.4, RDW 17.2 H, Plt Count 337, MPV 8.4, Gran % 54.1, Lymph % (Auto) 37.9 H, [place] % (Auto) 7.0 H, Eos % (Auto) 0.7 L, Baso % (Auto) 0.3, Gran # 6.50, Lymph # 4.6 H, [place] # 0.8 H, Eos # 0.1, Baso # 0.04 01/26/17 17:43: Urine Opiates Screen Negative, Urine Methadone Screen Negative, Ur Barbiturates Screen Negative, Ur Phencyclidine Scrn Negative, Ur Amphetamines Screen Negative, U Benzodiazepines Scrn Negative, U Oth Cocaine Metabols Negative, U Cannabinoids Screen Negative 01/26/17 17:43: Urine Color Yellow, Urine Appearance Clear, Urine pH 6.5, Ur Specific [place] 1.025, Urine Protein Negative, Urine Glucose (UA) Negative, Urine Ketones Trace H, Urine Blood Negative, Urine Nitrate Negative, Urine Bilirubin Negative, Urine Urobilinogen 0.2, Ur Leukocyte Esterase Negative, Urine HCG, Qual Negative Vital Signs Temp Pulse Pulse Resp BP Pulse Ox 01/30/17 16:09 100 H 122/84 01/30/17 08:46 103/80 01/29/17 19:00 100 H 128/85 01/29/17 09:19 102/63 01/29/17 07:07 98.2 F 94 H 20 102/63 01/28/17 16:00 98 H 129/95 H 01/28/17 09:49 113/73 01/28/17 07:24 98.2 F 83 22 113/73 01/27/17 14:32 126/82 01/27/17 07:02 98.4 F 80 18 123/86 01/27/17 06:57 98.4 F 80 20 123/86 01/26/17 23:24 90 19 01/26/17 20:47 98.2 F 91 H 16 141/91 H 96 01/26/17 17:11 98.9 F 105 H 20 143/94 H 98 Temp Pulse Resp BP Pulse Ox 98.2 F 81 20 121/88 96 01/31/17 07:14 01/31/17 07:14 01/31/17 07:14 01/31/17 09:35 01/26/17 20:47 Laboratory Results - last 24 hr 01/30/17 01/30/17 01/31/17 16:05 21:58 07:36 POC Glucose (mg/dL) 186 H 183 H 112 H 01/31/17 11:20 POC Glucose (mg/dL) 167 H Temp Pulse Resp BP Pulse Ox 97.8 F 59 L 59 H 88/60 L 99 02/01/17 07:03 02/01/17 07:03 02/01/17 07:03 02/01/17 10:19 02/01/17 07:03 Temp Pulse Resp BP Pulse Ox 98.1 F 83 18 130/91 H 99 02/02/17 08:04 02/02/17 08:04 02/02/17 08:04 02/02/17 10:06 02/01/17 22:16 DSM 5 Symptoms Update: shortly patient is 40 years old -[place] female, long and debilitating history of schizophrenia, treatment resistant, multiple admissions to the psychiatric inpatient unit in the past, including to this hospital, for this year only it is the fifth admission to the [facility], most recent was less than a month ago to this hospital, patient is followed by [facility] PACT team, pt is on clozaril and Haldol Dec. as per PES note pt said that she had command type hallucinations, was verbalizing thoughts of killing herself by cutting, needs further evaluation and stabilization. family meeting took place 02/01/17 with pt/ mother, PACT team DEE Mayer and this senior medical writer, see notes for more detailed information. pt fell yesterday, "knees gave up", was seen by medical team, pt did not hurt herself. as per report pt was walking to the dinning area and fell on her knees. meds reviewed, PT eval called. pt presented the same way to compare with yesterday, but more withdrawn. MSE: Pt was alert, oriented in self, time and place. Pt deemed to be unreliable historian, superficially well related to this senior medical writer. Pt looks stated age, good personal hygiene, good ADLs, psychomotor retardation, speech was: underproductive, low volume, intermittent eye contact, mood described: "I am fine, I am at my baseline", affect: constricted but reactive, mood congruent, thought process: disorganized , thought content: denied SI/ HI, denied v/a/t hallucinations, denied paranoid ideation but pt delusional (erotomanic with ), pt is disorganized, preoccupied insight: is limited, judgment: is fair , impulses are well controlled. Pt tolerates meds well, no side effects observed or reported, AIMS 0, no EPS Impression: DSM V: Schizoaffective disorder, bipolar type Plan: Milieu/structure/supportive therapy Medical consult appreciated, see medical team note for more detailed info DEE consultation for discharge plan and social issues medications were confirmed by patient treatment team 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 Injectable Haldol 100mg q monthly Injection was due is on January 11 cogentin 1mg po bid for EPS Medical consult appreciated Collateral information appreciated PACT team We'll monitor closely zoloft 50mg daily for depression family meeting took place 02/01/17, pt did not do well in the [facility] in the past, was offered to go to the [facility], pt and mother agreed will monitor Gran# clozaril [facility] contacted Will monitor closely Pt was educated about risk/benefits and alternatives of medications, coping strategies (safety plan, suicide prevention), relapse prevention, importance of follow up with psychiatrist and therapist, stay away from drugs/alcohol/smoking Medication Change: No Medical Record Reviewed: Yes Consults ordered or reviewed: medical consult appreciated PT was called for eval Goal/Treatment Plan - Goal/Treatment Plan Need for Continued Stay: Remain at risks for inpatient hospitalization, Severe depression anxiety, Discharge may exacerbated symptoms, Severe functional impairment Estimated Date of D/C: 02/07/17 (e'll monitor closely)
--- NOTE | 2017-02-02 19:05 | CARD ---
APPROVED REPORT EKG Measurement Heart [id number] <Conclusion> Normal sinus rhythm Incomplete right bundle branch block Nonspecific ST and T wave abnormality Abnormal ECG
[2017-02-03] MEDS: Iron Complex Polysacch 150mg Cap PO SCH (10:02)
--- NOTE | 2017-02-03 10:08 | PN ---
DATE: SUBJECTIVE: I saw resting comfortably in bed this morning. She is very tried and sleepy. She has no complaints to me, although she did have a fall during the day and I called the physical therapy, today. MEDICATIONS: She is on Clozaril, Cogentin, Colace, Cozaar, Ecotrin, iron, Glucophage, Maalox, milk of magnesia, Norvasc, Tylenol, Zetia, and Zoloft. PHYSICAL EXAMINATION: VITAL SIGNS: 97.7 temperature, 83 pulse, 101/72 blood pressure, 19 respiratory rate, and 99% O2 saturation on room air. HEENT: Atraumatic and normocephalic. HEART: Regular rate. LUNGS: Clear to auscultation. ABDOMEN: Soft and obese. EXTREMITIES: No edema. LABORATORY DATA: She has 9.7 white count blood sugar is 108. ASSESSMENT AND PLAN: Waiting for physical therapy to see her. She has not been seen yet. I do not want her falling. I discussed that with her to be very careful. She has multiple issues, she had suicidal ideations, depression, hypertension, diabetes, auditory hallucination, and she had fall. Hopefully, physical therapy will be in today. She also has schizo-affective disorder and bipolar type as per psychiatry. Jason Contreras DO MTDD
--- NOTE | 2017-02-03 10:14 | PCM.BM ---
<Tray Cortes - Last Filed: 02/03/17 10:13> Treatment Plan Problems - Problems identified on initial assessmt Suicidal Ideation Date Initiated: 01/26/17 Time Initiated: 22:30 Assessment reference: NA Status: Active Self Harm Date Initiated: 01/26/17 Time Initiated: 22:30 Assessment reference: NA Status: Active Command/Auditory Hallucinations Date Initiated: 01/26/17 Time Initiated: 22:30 Assessment reference: NA Status: Active Anxiety Date Initiated: 01/26/17 Time Initiated: 22:30 Assessment reference: NA Status: Active Treatment assets and liabiliti Patient Assests: adapts well, cooperative, educated, motivated, self-reliant, ADL independent, good support system, negotiates basic needs, financial stabiity , cognitively intact, good interpersonal skills - Milieu Protocol Maintain good personal hygiene: daily Encourage regular showers, daily Remind patient to perform daily oral care, daily Assist patient to perform ADL's Maintain personal safety: daily Educate patient to report safety concerns to staff, daily Monitor environment for contraband/sharps, every shift Educate patient to report safety concerns to staff, every shift Monitor environment for contraband/sharps Medication safety: Monitor for expected outcome, potential side effects: every shift, daily, Assess barriers to learning: every shift, daily, Assess readiness for medication education: every shift, daily Milieu Narrative: milieu, structure, supportive therapy medications were confirmed by patient treatment team 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 Injectable Haldol 100mg q monthly Injection was due is on January 11 cogentin 1mg po bid for EPS Medical consult appreciated Collateral information appreciated We'll monitor closely zoloft 50mg daily for depression PACT team contacted possible family meeting in regards of possible [facility] placement, possible Monday SW evaluation will monitor Gran# Discharge/Continuing Care - Education Needs Education Needs: Patient Medication, Patient Diagnosis/Disease Process, Patient Coping Skills, Patient Community resources, Patient Activities of Daily Living, Patient Nutrition, Patient Health Practices/Safety, Patient Aftercare Safety Plan, Patient Other - Discharge Discharge Criteria: Tolerates medication w/o severe side effects, Free of Suicidal thoughts, Normal sleep pattern, Ability to care for self, Reduction of target symptoms Discharge to:: Home - Treatment Team Participation Patient/Family/SO Statement: milieu, structure, supportive therapy medications were confirmed by patient treatment team 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 Injectable Haldol 100mg q monthly Injection was due is on January 11 cogentin 1mg po bid for EPS Medical consult appreciated Collateral information appreciated We'll monitor closely zoloft 50mg daily for depression PACT team contacted possible family meeting in regards of possible ch[facility] placement, possible Monday SW evaluation will monitor Gran# Treatment Plan Review - Problem Suicidal Ideation Time Initiated: 22:30 Self Harm Time Initiated: :30 Command/Auditory Hallucinations Time Initiated: 22:30 Anxiety Time Initiated: 22:30 <Zonia José - Last Filed: 02/03/17 12:06> - Diagnosis (1) Schizoaffective disorder, bipolar type Status: Acute Interventions: 02/03/17 12:06 pt is doing better family meeting took place pt is compliant with meds and tx plan pt also is willing to attend DTP no side effects from meds
--- NOTE | 2017-02-04 08:37 | PCM.PYCHPN ---
Psychiatric Progress Note - Psychiatric Progress Note Patient seen today, length of contact: 25 min Patient Chief Complaint: "okay" Problems Identified/Issues Discussed: I reviewed recent notes and met with patient at bedside. Patient remains oriented x3, superficially cooperative. Reports that she is feeling "okay" and denies recurrence of hallucinations or suicidal thoughts. Patient doesn't appear to be actively responding to internal stimuli though she appears internally preoccupied and tired. She is not overtly bizarre during my visit. Presently patient denies having any new discomfort or pain and has been tolerating medications on the unit "they are just fine". Nursing notes indicates that patient has been in good control and seclusive on the unit at times. Cooperative with staff requests. She is generally appropriate with staff and patients. There were no behavioral issues over the weekend. Diagnostic Results: Schizoaffective Disorder, Bipolar type Medication Change: No Medical Record Reviewed: Yes Mental Status Examination - Cognitive Function Orientation: Person, Place, Situation Attention: WNL Concentration: Poor Association: Loose Fund of Knowledge: Poor - Mood Mood: Neutral ("okay") - Affect Affect: Flat - Speech Speech: Soft - Formal Thought Process Formal Thought Process: Hallucinations (denied all weekend), Delusions ( erotomanic delusion about ), Circumstantial - Suicidal Ideation Suicidal Ideation: No - Homicidal Ideation Homicidal Ideation: No Goal/Treatment Plan - Goal/Treatment Plan Need for Continued Stay: Remain at risks for inpatient hospitalization, Severe depression anxiety, Discharge may exacerbated symptoms, Severe functional impairment Progress Toward Problem(s) and Goals/Treatment Plan: * c/w current tx and plan * No new weekend labs * Vitals reviewed and noted below: Selected Entries 02/03/17 02/03/17 02/03/17 06:45 10:04 16:30 Temperature 97.7 F Pulse Rate 83 100 H Respiratory 19 Rate Blood Pressure 101/72 101/72 125/89 O2 Sat by Pulse 98 Oximetry Estimated Date of D/C: 02/07/17 (e'll monitor closely)
[2017-02-04] MEDS: Iron Complex Polysacch 150mg Cap PO SCH (09:19)
--- NOTE | 2017-02-04 17:39 | PN ---
SUBJECTIVE: The patient is sleeping in bed at 12:00 in the afternoon; I discussed getting out of bed, watch TV, talk to other patients. She is smiling. She understands she has to get out of bed, but she is eating well, taking her medications and feeling better mentally. MEDICATIONS: She is on Clozaril, Cogentin, Colace, Cozaar, Ferrex, Glucophage, Maalox, milk of magnesia, Norvasc, Tylenol, Zetia, and Zoloft. PHYSICAL EXAMINATION: VITAL SIGNS: Temperature 97.5; pulse 81; blood pressure 133/94, blood pressure 125/89; respiratory rate 18; O2 saturation 90% on room air. HEENT: Head is atraumatic, normocephalic. HEART: Regular rate. LUNGS: Clear to auscultation. ABDOMEN: Soft, obese. Nontender. EXTREMITIES: No edema. LABORATORY DATA: She had labs, the last one was blood sugar 140. Overall she is doing well, I believe. She is being followed by psychiatry and medicines are being changed as needed. She has severe depression, anxiety, auditory hallucinations, schizoaffective disorder, bipolar, diabetes, hypertension. Continue aggressive treatment and care as per psychiatry. Thank you very much. I encouraged her to get out of bed when she is not so tired. Jason Contreras DO
[2017-02-05 06:54] VITALS: O2SAT 98
--- NOTE | 2017-02-05 08:48 | PCM.PYCHPN ---
Psychiatric Progress Note - Psychiatric Progress Note Patient seen today, length of contact: 25 min Patient Chief Complaint: "so-so" Problems Identified/Issues Discussed: I reviewed recent notes and met with patient at bedside. Patient remains oriented x3, superficially cooperative. Reports that she feels "so-so" and denies recurrence of hallucinations or suicidal thoughts. Patient isn't responding to internal stimuli though she does still appear internally preoccupied and tired. Presently patient denies having any new discomfort or pain and has been tolerating medications on the unit "they are just fine". Nursing notes indicates that patient has been in good control but spends a lot of time in bed. She is generally appropriate with staff and patients. No bizarre behavior noted. There were no behavioral issues over the weekend. Diagnostic Results: Schizoaffective Disorder, Bipolar type Medication Change: No Medical Record Reviewed: Yes Mental Status Examination - Cognitive Function Orientation: Person, Place, Situation Attention: WNL Concentration: Poor Association: Loose Fund of Knowledge: Poor - Mood Mood: Neutral ( "so-so") - Affect Affect: Flat - Speech Speech: Soft - Formal Thought Process Formal Thought Process: Hallucinations (denied all weekend), Delusions ( erotomanic delusion about ), Circumstantial - Suicidal Ideation Suicidal Ideation: No - Homicidal Ideation Homicidal Ideation: No Goal/Treatment Plan - Goal/Treatment Plan Need for Continued Stay: Remain at risks for inpatient hospitalization, Severe depression anxiety, Discharge may exacerbated symptoms, Severe functional impairment Progress Toward Problem(s) and Goals/Treatment Plan: * c/w current tx and plan * Appreciate f/u by Dr. Contrreas on 02/04/17 * No new weekend labs * Vitals reviewed and noted below: Selected Entries 02/04/17 02/04/17 02/04/17 07:05 09:17 16:22 Temperature 97.5 F L Pulse Rate 81 109 H Respiratory 18 Rate Blood Pressure 133/94 H 133/94 H 149/99 H Estimated Date of D/C: 02/07/17 (e'll monitor closely)
[2017-02-05] MEDS: Iron Complex Polysacch 150mg Cap PO SCH (08:58)
--- NOTE | 2017-02-05 13:19 | PN ---
DATE: SUBJECTIVE: I saw Gato in the psychiatric floor in bed under the cover, she finished practice and is not going back to bed, I asked her again out of bed and please participate and not sleep all day. MEDICATIONS: She is currently on Clozaril, Cogentin, Colace, Cozaar, Ecotrin, Ferrex, Glucophage, MiraLax, milk of magnesia, Norvasc, Tylenol, Zetia, and Zoloft. PHYSICAL EXAMINATION: VITAL SIGNS: She has 97.9 temperature, 82 pulse, 120/85 blood pressure, 20 respiratory rate, and 90% O2 sat on room air. HEENT: Head is atraumatic and normocephalic. HEART: Regular rate. LUNGS: Clear to auscultation. ABDOMEN: Soft, obese, and nontender. EXTREMITIES: No edema. LABORATORY DATA: Last labs on , she did well. The last blood sugar 119 this morning. PLAN: She is being seen by psychiatry. I do think she is trying to improve mentally. She tells me she is improving mentally, I am asking her to get out of bed more to participate. She has suicidal ideation, depression, auditory hallucinations, schizoaffective disorder, and bipolar. She had a fall. I asked her to walk around also. She has diabetes, hypertension and little bit obese. Jason Contreras DO [facility]
[2017-02-06 07:39] VITALS: TEMP 98.3
[2017-02-06] MEDS: Iron Complex Polysacch 150mg Cap PO SCH (09:22)
--- NOTE | 2017-02-06 10:46 | PN ---
SUBJECTIVE: I saw the patient resting comfortably in bed. She slept well, no complaints. She is in good spirits. She feels better. She is going to try to get out of bed today and participate. MEDICATIONS: She is on Clozaril, Cogentin, Colace, Cozaar, Ecotrin, iron, Glucophage, milk of magnesia, MiraLax, Norvasc, Tylenol, Zetia, and Zoloft. PHYSICAL EXAMINATION: VITAL SIGNS: She has 98.3 temperature, 87 pulse, 116/84 blood pressure, 98% sat on room air. GENERAL: She is alert and comfortable in bed under the covers. LABORATORY DATA: Last blood sugar was 113. ASSESSMENT AND PLAN: She has been seen by psychiatry. She has been treated very aggressively psychologically by psychiatry. She is here for suicidal ideation, depression, auditory hallucinations, schizoaffective disorder, bipolar, she had a fall, diabetes, hypertension and she is mildly obese. I encouraged her to participate, to get out of bed and eat her breakfast, lunch and dinner; hopefully, she will improve mentally. We will follow. Jason Contreras DO
[2017-02-06 13:09] LABS: BASO # 0.04 K/mm3 (0.0-2.0); BASO % 0.3 % (0.0-3.0); EOS # 0.1 (0.0-0.7); GRAN # 6.15 (1.4-6.5); GRAN % 53.7 % (50.0-68.0); HEMATOCRIT 34.1 % (36.0-48.0); LYMPH # 4.4 (1.2-3.4); LYMPH % 38.6 % (22.0-35.0); MEAN CORPUSCULAR HEMOGLOBIN 28.2 pg (25.0-35.0); MEAN PLATELET VOLUME 8.1 fl (7.0-11.0); MONO # 0.7 (0.1-0.6); MONO % 6.4 % (1.0-6.0); RED CELL DISTRIBUTION WIDTH 17.3 % (11.5-14.5); WHITE BLOOD COUNT 11.5 10^3/ul (4.5-11.0)
--- NOTE | 2017-02-06 17:31 | PCM.PYCHPN ---
Psychiatric Progress Note - Psychiatric Progress Note Patient seen today, length of contact: 25 min Patient Chief Complaint: "I am okay, please call physical therapy because I don't want to fall", when came over pt refused to participate Medical Problems: hypertension, diabetes, obesity see medical notes for more detailed info Diagnostic Results: 01/27/17 07:39 01/27/17 07:39 Lab Results 01/30/17 16:05: POC Glucose (mg/dL) 186 H 01/30/17 12:02: POC Glucose (mg/dL) 117 H 01/30/17 07:38: POC Glucose (mg/dL) 135 H 01/29/17 22:48: POC Glucose (mg/dL) 111 H 01/29/17 16:32: POC Glucose (mg/dL) 174 H 01/29/17 11:48: POC Glucose (mg/dL) 132 H 01/29/17 07:55: POC Glucose (mg/dL) 146 H 01/28/17 23:14: POC Glucose (mg/dL) 184 H 01/28/17 17:47: POC Glucose (mg/dL) 193 H 01/28/17 11:19: POC Glucose (mg/dL) 161 H 01/28/17 07:27: POC Glucose (mg/dL) 167 H 01/27/17 23:10: POC Glucose (mg/dL) 143 H 01/27/17 16:34: POC Glucose (mg/dL) 181 H 01/27/17 11:57: POC Glucose (mg/dL) 144 H 01/27/17 07:39: RPR Nonreactive 01/27/17 07:39: Free T4 0.94, TSH 3rd Generation 1.13 01/27/17 07:39: Sodium 139, Potassium 4.1, Chloride 105, Carbon Dioxide 23, Anion Gap 15, BUN 6 L, Creatinine 0.4 L, Est GFR ( Amer) > 60, Est GFR ( Non-Af Amer) > 60, Random Glucose 121 H, Fasting Glucose 121 H, Calcium 8.8, Total Bilirubin 0.4, AST 22, ALT 36, Alkaline Phosphatase 83, Total Protein 6.9 , Albumin 3.8, Globulin 3.1, Albumin/Globulin Ratio 1.2, Triglycerides 221 H, Cholesterol 215 H, LDL Cholesterol Direct 163 H, HDL Cholesterol 25 L 01/27/17 07:39: WBC 9.7, RBC 4.11, Hgb 11.5 L, Hct 33.8 L, MCV 82.2, MCH 28.0, MCHC 34.0, RDW 17.3 H, Plt Count 308, MPV 8.2, Gran % 45.4 L, Lymph % (Auto) 45.0 H, [place] % (Auto) 8.0 H, Eos % (Auto) 1.2 L, Baso % (Auto) 0.4, Gran # 4.41 , Lymph # 4.4 H, [place] # 0.8 H, Eos # 0.1, Baso # 0.04 01/27/17 07:37: POC Glucose (mg/dL) 120 H 01/26/17 23:55: POC Glucose (mg/dL) 188 H 01/26/17 17:55: Alcohol, Quantitative < 10 01/26/17 17:55: Salicylates < 1 L, Acetaminophen < 10.0 L 01/26/17 17:55: Sodium 141, Potassium 3.8, Chloride 105, Carbon Dioxide 22, Anion Gap 18, BUN 8, Creatinine 0.5, Est GFR ( Amer) > 60, Est GFR (Non- Af Amer) > 60, Random Glucose 170 H, Calcium 9.3, Total Bilirubin 0.3, AST 31, ALT 37, Alkaline Phosphatase 99, Total Protein 8.0, Albumin 4.5, Globulin 3.5, Albumin/Globulin Ratio 1.3 01/26/17 17:55: WBC 12.0 H, RBC 4.35, Hgb 12.3, Hct 35.8 L, MCV 82.3, MCH 28.3, MCHC 34.4, RDW 17.2 H, Plt Count 337, MPV 8.4, Gran % 54.1, Lymph % (Auto) 37.9 H, [place] % (Auto) 7.0 H, Eos % (Auto) 0.7 L, Baso % (Auto) 0.3, Gran # 6.50, Lymph # 4.6 H, [place] # 0.8 H, Eos # 0.1, Baso # 0.04 01/26/17 17:43: Urine Opiates Screen Negative, Urine Methadone Screen Negative, Ur Barbiturates Screen Negative, Ur Phencyclidine Scrn Negative, Ur Amphetamines Screen Negative, U Benzodiazepines Scrn Negative, U Oth Cocaine Metabols Negative, U Cannabinoids Screen Negative 01/26/17 17:43: Urine Color Yellow, Urine Appearance Clear, Urine pH 6.5, Ur Specific [place] 1.025, Urine Protein Negative, Urine Glucose (UA) Negative, Urine Ketones Trace H, Urine Blood Negative, Urine Nitrate Negative, Urine Bilirubin Negative, Urine Urobilinogen 0.2, Ur Leukocyte Esterase Negative, Urine HCG, Qual Negative Vital Signs Temp Pulse Pulse Resp BP Pulse Ox 01/30/17 16:09 100 H 122/84 01/30/17 08:46 103/80 01/29/17 19:00 100 H 128/85 01/29/17 09:19 102/63 01/29/17 07:07 98.2 F 94 H 20 102/63 01/28/17 16:00 98 H 129/95 H 01/28/17 09:49 113/73 01/28/17 07:24 98.2 F 83 22 113/73 01/27/17 14:32 126/82 01/27/17 07:02 98.4 F 80 18 123/86 01/27/17 06:57 98.4 F 80 20 123/86 01/26/17 23:24 90 19 01/26/17 20:47 98.2 F 91 H 16 141/91 H 96 01/26/17 17:11 98.9 F 105 H 20 143/94 H 98 Temp Pulse Resp BP Pulse Ox 98.2 F 81 20 121/88 96 01/31/17 07:14 01/31/17 07:14 01/31/17 07:14 01/31/17 09:35 01/26/17 20:47 Laboratory Results - last 24 hr 01/30/17 01/30/17 01/31/17 16:05 21:58 07:36 POC Glucose (mg/dL) 186 H 183 H 112 H 01/31/17 11:20 POC Glucose (mg/dL) 167 H Temp Pulse Resp BP Pulse Ox 97.8 F 59 L 59 H 88/60 L 99 02/01/17 07:03 02/01/17 07:03 02/01/17 07:03 02/01/17 10:19 02/01/17 07:03 Temp Pulse Resp BP Pulse Ox 98.1 F 83 18 130/91 H 99 02/02/17 08:04 02/02/17 08:04 02/02/17 08:04 02/02/17 10:06 02/01/17 22:16 Laboratory Results - last 72 hr 02/03/17 02/04/17 02/04/17 21:30 07:26 11:25 WBC RBC Hgb Hct MCV MCH MCHC RDW Plt Count MPV Gran % Lymph % (Auto) [place] % (Auto) Eos % (Auto) Baso % (Auto) Gran # Lymph # [place] # Eos # Baso # POC Glucose (mg/dL) 144 H 99 140 H 02/04/17 02/04/17 02/05/17 16:13 21:14 06:44 WBC RBC Hgb Hct MCV MCH MCHC RDW Plt Count MPV Gran % Lymph % (Auto) [place] % (Auto) Eos % (Auto) Baso % (Auto) Gran # Lymph # [place] # Eos # Baso # POC Glucose (mg/dL) 147 H 144 H 119 H 02/05/17 02/05/17 02/05/17 11:02 16:06 20:53 WBC RBC Hgb Hct MCV MCH MCHC RDW Plt Count MPV Gran % Lymph % (Auto) [place] % (Auto) Eos % (Auto) Baso % (Auto) Gran # Lymph # [place] # Eos # Baso # POC Glucose (mg/dL) 124 H 113 H 193 H 02/06/17 02/06/17 02/06/17 07:17 11:10 13:00 WBC 11.5 H RBC 4.11 Hgb 11.6 L Hct 34.1 L MCV 83.0 MCH 28.2 MCHC 34.0 RDW 17.3 H Plt Count 412 MPV 8.1 Gran % 53.7 Lymph % (Auto) 38.6 H [place] % (Auto) 6.4 H Eos % (Auto) 1.0 L Baso % (Auto) 0.3 Gran # 6.15 Lymph # 4.4 H [place] # 0.7 H Eos # 0.1 Baso # 0.04 POC Glucose (mg/dL) 113 H 132 H 02/06/17 16:29 WBC RBC Hgb Hct MCV MCH MCHC RDW Plt Count MPV Gran % Lymph % (Auto) [place] % (Auto) Eos % (Auto) Baso % (Auto) Gran # Lymph # [place] # Eos # Baso # POC Glucose (mg/dL) 155 H DSM 5 Symptoms Update: shortly patient is 40 years old -[place] female, long and debilitating history of schizophrenia, treatment resistant, multiple admissions to the psychiatric inpatient unit in the past, including to this hospital, for this year only it is the fifth admission to the [facility], most recent was less than a month ago to this hospital, patient is followed by [facility] PACT team, pt is on clozaril and Haldol Dec. as per PES note pt said that she had command type hallucinations, was verbalizing thoughts of killing herself by cutting, needs further evaluation and stabilization. family meeting took place 02/01/17 with pt/ mother, PACT team DEE Mayer and this conventional mortgage underwriter, see notes for more detailed information. pt c/o difficulties to ambulate, pt asked for PT eval, when PT team came over, pt refused to participate. pt is low profile, no changes with presentation. MSE: Pt was alert, oriented in self, time and place. Pt deemed to be unreliable historian, superficially well related to this conventional mortgage underwriter. Pt looks stated age, good personal hygiene, good ADLs, psychomotor retardation, speech was: underproductive, low volume, intermittent eye contact, mood described: "I am fine, I am at my baseline", affect: constricted but reactive, mood congruent, thought process: disorganized , thought content: denied SI/ HI, denied v/a/t hallucinations, denied paranoid ideation but pt delusional (erotomanic with ), pt is disorganized, preoccupied insight: is limited, judgment: is fair , impulses are well controlled. Pt tolerates meds well, no side effects observed or reported, AIMS 0, no EPS Impression: DSM V: Schizoaffective disorder, bipolar type Plan: Milieu/structure/supportive therapy Medical consult appreciated, see medical team note for more detailed info DEE consultation for discharge plan and social issues medications were confirmed by patient treatment team 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 Injectable Haldol 100mg q monthly Injection was due is on January 11 cogentin 1mg po bid for EPS Medical consult appreciated Collateral information appreciated PACT team We'll monitor closely zoloft 50mg daily for depression family meeting took place 02/01/17, pt did not do well in the [facility] in the past, was offered to go to the [facility], pt and mother agreed will monitor Gran# clozaril [facility] contacted PT called back again Will monitor closely Pt was educated about risk/benefits and alternatives of medications, coping strategies (safety plan, suicide prevention), relapse prevention, importance of follow up with psychiatrist and therapist, stay away from drugs/alcohol/smoking Medication Change: No Medical Record Reviewed: Yes Consults ordered or reviewed: medical consult appreciated PT was called for eval Mental Status Examination - Suicidal Ideation Suicidal Ideation: No - Homicidal Ideation Homicidal Ideation: No Goal/Treatment Plan - Goal/Treatment Plan Need for Continued Stay: Remain at risks for inpatient hospitalization, Severe depression anxiety, Discharge may exacerbated symptoms, Severe functional impairment Estimated Date of D/C: 02/07/17 (e'll monitor closely)
[2017-02-07] MEDS: Iron Complex Polysacch 150mg Cap PO SCH (09:43)
[2017-02-07 09:50] VITALS: BP 110/70
--- NOTE | 2017-02-07 11:11 | PN ---
SUBJECTIVE: I saw the patient resting in bed, again sleeping. She is comfortable. No acute distress. No complaints to me. She is happy. She is eating. She is taking her medications and feeling better. She is always sleeping. MEDICATIONS: She is on Clozaril, Cogentin, Colace, Cozaar, Ecotrin, iron, Glucophage, Maalox, milk of magnesia, Norvasc, Tylenol, Zetia, and Zoloft. PHYSICAL EXAMINATION: VITAL SIGNS: 98.3 temperature, 87 pulse, 116/84 blood pressure, 19 respiratory rate. HEENT: Head is atraumatic and normocephalic. HEART: Regular rate. LUNGS: Clear to auscultation. ABDOMEN: Soft, obese, and nontender. EXTREMITIES: No edema. She is here for suicidal ideation, depression, auditory hallucination, hypertension, diabetes, schizoaffective disorder, fall and bipolar. I am going to order a blood test today just to make I am not missing anything. LABORATORY DATA: Last blood test was on the , which was done yesterday; 11.5 white count, 11.6 hemoglobin, 34.1 hematocrit with a 412 platelets. Last blood sugar was 103. RPR is nonreactive. I will also order a CMP for tomorrow and urine. We have to get physical therapy back in because she has had some falls in the past, and I do not think she is ready to be discharged yet. Jason Contreras DO
[2017-02-07 11:13] VITALS: PULSE 86; RESP 16
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
== END 2017-02-07 15:50 | disposition home or self-care (01) | DRG 885 ==
LOC: ED 17:02 → ERH 22:00 → PSYC 22:33
PROVIDERS: ADMIT Psychiatry & Neurology Psychiatry; ATTEND Psychiatry & Neurology Psychiatry
PROC: GZ3ZZZZ Medication Management (ICD-10-PCS; principal; 2017-01-27)
DX: F25.0 Schizoaffective disorder, bipolar type (principal); R45.851 Suicidal ideations; F22 Delusional disorders; W19.XXXA Unspecified fall, initial encounter; I10 Essential (primary) hypertension; E11.9 Type 2 diabetes mellitus without complications; E66.9 Obesity, unspecified; Z68.29 Body mass index [BMI] 29.0-29.9, adult; F17.210 Nicotine dependence, cigarettes, uncomplicated; Z79.82 Long term (current) use of aspirin; Z79.84 Long term (current) use of oral hypoglycemic drugs; Z79.899 Other long term (current) drug therapy

== ENCOUNTER 2017-04-02 09:20 | Inpatient (IN) | payer MEDICARE, MEDICAID ==
[2017-04-02 09:21] VITALS: BMI 29.7
--- NOTE | 2017-04-02 09:43 | ED PDOC ---
Arrival/HPI - General Chief Complaint: Psychiatric Evaluation Time Seen by Provider: 04/02/17 09:35 Historian: Patient - History of Present Illness Time/Duration: Other (this morning) Symptom Onset: Sudden Symptom Course: Improving Severity Level: Mild Associated Symptoms (Text): 04/02/17 09:40 Patient states that she was at home alone this morning in her kitchen when she had a panic attack and it made her feel as if she was going to hurt herself. Her plan was to cut herself. She did not cut herself. She reports she has been taking her medications. She was recently hospitalized approximately 3 weeks ago for similar complaints. Well-known to the emergency Department staff. PMD: Dr. Mathis Past Medical History - Provider Review Nursing Documentation Reviewed: Yes - Past History Past History: Non-Contributing - Infectious Disease Hx of Infectious Diseases: None - Tetanus Immunization Tetanus Immunization: Unknown - Cardiac Hx Hypertension: Yes - Pulmonary Hx Respiratory Disorders: No - Neurological Hx Seizures: Yes (age 14) - HEENT Hx HEENT Disorder: No - Renal Hx Renal Disorder: No - Endocrine/Metabolic Hx Endocrine Disorders: Yes Hx Diabetes Mellitus Type 2: Yes - Hematological/Oncological Hx Anemia: Yes - Integumentary Hx Dermatological Disorder: No - Musculoskeletal/Rheumatological Hx Musculoskeletal Disorders: No - Gastrointestinal Hx Gastrointestinal Disorders: No - Genitourinary/Gynecological Hx Genitourinary Disorders: No - Psychiatric Hx Anxiety: Yes Hx Bipolar Disorder: Yes Hx Depression: Yes Hx Schizophrenia: Yes Hx Substance Use: No - Anesthesia Hx Anesthesia: No - Suicidal Assessment Feels Threatened In Home Enviroment: No Family/Social History - Physician Review Nursing Documentation Reviewed: Yes Family/Social History: Unknown Family HX Smoking Status: Never Smoked Hx Alcohol Use: No Hx Substance Use: No Hx Substance Use Treatment: No Allergies/Home Meds Allergies/Adverse Reactions: Allergies No Known Allergies Allergy (Verified 04/02/17 09:26) Home Medications: Home Meds Medication Instructions Recorded Confirmed Unobtainable 04/02/17 04/02/17 Review of Systems - Physician Review All systems were reviewed & negative as marked: Yes - Review of Systems Respiratory: Normal Cardiovascular: Normal Gastrointestinal: Normal Genitourinary Female: Normal Physical Exam Vital Signs Reviewed: Yes Vital Signs Temp Pulse Resp BP Pulse Ox 04/02/17 12:48 91 H 18 121/70 97 04/02/17 09:39 98.8 F 108 H 17 119/78 99 Temperature: Afebrile Blood Pressure: Normal Pulse: Regular Respiratory Rate: Normal Appearance: Positive for: Well-Appearing, Non-Toxic, Comfortable Pain Distress: None Mental Status: Positive for: Alert and Oriented X 3 - Systems Exam Head: Present: Atraumatic, Normocephalic Pupils: Present: PERRL Extroacular Muscles: Present: EOMI Conjunctiva: Present: Normal Mouth: Present: Moist Mucous Membranes Respiratory/Chest: Present: Clear to Auscultation, Good Air Exchange. No: Respiratory Distress, Accessory Muscle Use Cardiovascular: Present: Regular Rate and Rhythm, Normal S1, S2. No: Murmurs Abdomen: Present: Normal Bowel Sounds. No: Tenderness, Distention, Peritoneal Signs Upper Extremity: Present: Normal Inspection. No: Cyanosis, Edema Lower Extremity: Present: Normal Inspection. No: Edema Neurological: Present: GCS=15, CN II-XII Intact, Speech Normal, Motor Func Grossly Intact Skin: Present: Warm, Dry, Normal Color. No: Rashes Psychiatric: Present: Alert, Oriented x 3, Normal Insight, Normal Concentration , Depressed Mood, Suicidal Ideation. No: Agitated, Homicidal Ideation, Delusional, Hallucinations, Intoxicated, Lethargic Medical Decision Making ED Course and Treatment: 04/02/17 09:42 Plan: -- Labs -- EKG -- Chest X-ray -- Urinalysis -- Urinalysis W/ MiCRO -- POC Urine Preg Test -- Reassess and disposition Prior Visits: Notes and results from previous visits were reviewed. Patient was last seen in the emergency department on 01/26/19 presents complaining suicidal ideation past 2 weeks. Progress Notes: EKG shows sinus tachycardia rate approximately [address] or T-wave changes Dictator : Jason Kowalski MD Report Date : 04/02/2017 12:05:28 IMPRESSION: No active disease. 04/02/17 14:52 Discussed in detail with , who will admit to psychiatric floor - Lab Interpretations Lab Results: 04/02/17 09:40 04/02/17 09:40 Lab Results 04/02/17 10:49: Urine Opiates Screen Negative, Urine Methadone Screen Negative, Ur Barbiturates Screen Negative, Ur Phencyclidine Scrn Negative, Ur Amphetamines Screen Negative, U Benzodiazepines Scrn Negative, U Oth Cocaine Metabols Negative, U Cannabinoids Screen Negative 04/02/17 10:49: Urine Color Yellow, Urine Appearance Clear, Urine pH 6.0, Ur Specific [place] 1.025, Urine Protein Trace H, Urine Glucose (UA) 100 H, Urine Ketones Trace H, Urine Blood Negative, Urine Nitrate Negative, Urine Bilirubin Negative, Urine Urobilinogen 0.2, Ur Leukocyte Esterase Negative, Urine RBC Negative, Urine WBC 0 - 2, Ur Epithelial Cells 4 - 5, Amorphous Sediment Few, Urine Bacteria Small, Urine HCG, Qual Negative 04/02/17 09:40: Alcohol, Quantitative < 10 04/02/17 09:40: Salicylates < 1 L, Acetaminophen < 10.0 L 04/02/17 09:40: Sodium 139, Potassium 3.7, Chloride 103, Carbon Dioxide 21, Anion Gap 19, BUN 10, Creatinine 0.5 L, Est GFR ( Amer) > 60, Est GFR ( Non-Af Amer) > 60, Random Glucose 245 H, Calcium 9.7, Total Bilirubin 0.5, AST 27, ALT 36, Alkaline Phosphatase 106, Total Protein 8.1, Albumin 4.5, Globulin 3.6, Albumin/Globulin Ratio 1.3 04/02/17 09:40: WBC 14.0 H D, RBC 4.53, Hgb 12.8, Hct 38.8, MCV 85.7, MCH 28.3, MCHC 33.0, RDW 16.5 H, Plt Count 394, MPV 8.7, Gran % 59.3, Lymph % (Auto) 34.5 , [place] % (Auto) 5.4, Eos % (Auto) 0.6 L, Baso % (Auto) 0.2, Gran # 8.27 H, Lymph # 4.8 H, [place] # 0.8 H, Eos # 0.1, Baso # 0.03 I have reviewed the lab results: Yes - RAD Interpretation Radiology Orders: 04/02/17 11:27 CHEST PORTABLE [RAD] Stat - EKG Interpretation Interpreted by ED Physician: Yes Type: 12 lead EKG Disposition/Present on Arrival - Present on Arrival Any Indicators Present on Arrival: No History of DVT/PE: No History of Uncontrolled Diabetes: No Urinary Catheter: No History of Decub. Ulcer: No History Surgical Site Infection Following: None - Disposition Have Diagnosis and Disposition been Completed?: Yes Diagnosis: Suicidal ideation, Depression Disposition: HOSPITALIZED Disposition Time: 14:55 Patient Plan: Admission Condition: GOOD Referrals: Lucía Mathis MD [Primary Care Provider] - Follow up with primary Forms: [employer] ([employer]) ([employer])
[2017-04-02 09:51] LABS: BASO # 0.03 K/mm3 (0.0-2.0); BASO % 0.2 % (0.0-3.0); EOS # 0.1 (0.0-0.7); EOS % 0.6 % (1.5-5.0); GRAN # 8.27 (1.4-6.5); GRAN % 59.3 % (50.0-68.0); HEMATOCRIT 38.8 % (36.0-48.0); LYMPH # 4.8 (1.2-3.4); LYMPH % 34.5 % (22.0-35.0); MEAN CELL VOLUME 85.7 fl (80.0-105.0); MEAN CORPUSCULAR HEMOGLOBIN 28.3 pg (25.0-35.0); MEAN PLATELET VOLUME 8.7 fl (7.0-11.0); MONO # 0.8 (0.1-0.6); MONO % 5.4 % (1.0-6.0); RED CELL DISTRIBUTION WIDTH 16.5 % (11.5-14.5)
[2017-04-02 10:06] LABS: ALB/GLOB RATIO 1.3 (1.1-1.8); ALKALINE PHOSPHATASE 106 U/L (38-126); ALT/SGPT 36 U/L (7-56); AST/SGOT 27 U/L (14-36); BILIRUBIN,TOTAL 0.5 mg/dL (0.2-1.3); BLOOD UREA NITROGEN 10 mg/dL (7-21); CALCIUM 9.7 mg/dL (8.4-10.5); CARBON DIOXIDE 21 mmol/L (21-33); CHLORIDE 103 mmol/L (98-107); GFR AFRICAN-AMERICAN > 60; GLUCOSE,RANDOM 245 mg/dL (70-110); POTASSIUM 3.7 mmol/L (3.6-5.0); SODIUM 139 mmol/L (132-148); TOTAL PROTEIN 8.1 g/dL (5.8-8.3)
[2017-04-02 11:15] LABS: URINE BILIRUBIN NEGATIVE (NEGATIVE); URINE BLOOD NEGATIVE (NEGATIVE); URINE GLUCOSE (UA) 100 mg/dL (NEGATIVE); URINE KETONE TRACE mg/dL (NEGATIVE); URINE LEUKOCYTE ESTERASE NEGATIVE Leu/uL (NEGATIVE); URINE PROTEIN TRACE mg/dL (<30 mg/dL); URINE UROBILINOGEN 0.2 E.U./dL (<1 E.U./dL)
[2017-04-02 11:22] LABS: URINE APPEARANCE CLEAR (CLEAR); URINE COLOR YELLOW (YELLOW)
[2017-04-02 11:26] LABS: URINE AMORPHOUS SEDIMENT FEW; URINE BACTERIA SMALL (NEG); URINE RBC NEGATIVE /hpf (0-2); URINE WBC 0 - 2 /hpf (0-6)
--- NOTE | 2017-04-02 12:06 | RAD ---
HISTORY: PES COMPARISON: 01/26/2017 FINDINGS: LUNGS: No active pulmonary disease. PLEURA: No significant pleural effusion identified, no pneumothorax apparent. CARDIOVASCULAR: Normal. OSSEOUS STRUCTURES: No significant abnormalities. VISUALIZED UPPER ABDOMEN: Normal. OTHER FINDINGS: None. IMPRESSION: No active disease.
--- NOTE | 2017-04-02 14:51 | CARD ---
APPROVED REPORT EKG Measurement Heart [id number] <Conclusion> Sinus tachycardia Left ventricular hypertrophy with repolarization abnormality Abnormal ECG
[2017-04-02] MEDS ORDERED: Alum-Mag Hydrox-Simethicone Susp (30 mL) PO PRN (17:39)
[2017-04-02] MEDS ORDERED: Magnesium Hydroxide Susp 30 ml UD PO PRN (17:39)
--- NOTE | 2017-04-03 02:02 | PCM.BM ---
<Boris Bryant - Last Filed: 04/03/17 01:59> Treatment Plan Problems - Problems identified on initial assessmt suicidal ideation Date Initiated: 04/02/17 Time Initiated: 21:45 Assessment reference: NA Status: Active Depression Date Initiated: 04/02/17 Time Initiated: 21:45 Assessment reference: NA Status: Active Treatment assets and liabiliti Patient Assests: adapts well, cooperative, educated, motivated, self-reliant, ADL independent, good support system, negotiates basic needs, financial stabiity , cognitively intact, good interpersonal skills Patient Liabilities: poor support system - Milieu Protocol Maintain good personal hygiene: daily Encourage regular showers, daily Remind patient to perform daily oral care, daily Assist patient to perform ADL's Maintain personal safety: daily Educate patient to report safety concerns to staff, daily Monitor environment for contraband/sharps Medication safety: Monitor for expected outcome, potential side effects: daily, Assess barriers to learning: daily, Assess readiness for medication education: daily Family Contact Family involvement: No known Family/SO Family contact: Patient declines to allow family contact at present Discharge/Continuing Care - Education Needs Education Needs: Patient Medication, Patient Coping Skills, Patient Anger Management skills - Discharge Discharge Criteria: Free of Suicidal thoughts <Zonia José - Last Filed: 04/03/17 09:19> - Diagnosis (1) Schizoaffective disorder, bipolar type Status: Chronic Interventions: 04/03/17 09:19 Psychoeducation/psychotherapy Psychopharmacology/adjustment of medications as needed/ monitoring possible side effects Evaluate pt on daily basis Compliance with medications and follow up appointments Long acting medication if pt is noncompliant with pill form Suicide and homicide risk assessment and prevention, coping strategies, safety plan Relapse prevention Reduction of symptoms Improve functional status Possible assertive community treatment Cognitive behavioral therapy Family involvement Possible social skill training as outpatient Family Contact - Outside Agency [facility] Care involvment: Information-sharing Agency contact name: [facility] Agency contact number: [phone] <Lucila Capone - Last Filed: 04/03/17 14:32>
[2017-04-03 07:12] LABS: BASO # 0.03 K/mm3 (0.0-2.0); BASO % 0.3 % (0.0-3.0); EOS # 0.1 (0.0-0.7); EOS % 1.2 % (1.5-5.0); GRAN # 5.19 (1.4-6.5); GRAN % 50.2 % (50.0-68.0); LYMPH # 4.1 (1.2-3.4); LYMPH % 39.8 % (22.0-35.0); MEAN CELL VOLUME 85.2 fl (80.0-105.0); MEAN CORPUSCULAR HEMOGLOBIN 28.2 pg (25.0-35.0); MEAN CORPUSCULAR HGB CONC 33.1 g/dl (31.0-37.0); MEAN PLATELET VOLUME 8.4 fl (7.0-11.0); MONO # 0.9 (0.1-0.6); MONO % 8.5 % (1.0-6.0); RED CELL DISTRIBUTION WIDTH 16.4 % (11.5-14.5); WHITE BLOOD COUNT 10.3 10^3/ul (4.5-11.0)
[2017-04-03] MEDS ORDERED: Iron Complex Polysacch 150mg Cap PO SCH ×2 (08:00→09:11)
[2017-04-03 08:12] LABS: ALB/GLOB RATIO 1.2 (1.1-1.8); ALKALINE PHOSPHATASE 87 U/L (38-126); ALT/SGPT 36 U/L (7-56); AST/SGOT 18 U/L (14-36); BILIRUBIN,TOTAL 0.5 mg/dL (0.2-1.3); BLOOD UREA NITROGEN 10 mg/dL (7-21); CARBON DIOXIDE 25 mmol/L (21-33); CHLORIDE 104 mmol/L (98-107); GFR AFRICAN-AMERICAN > 60; GLUCOSE,RANDOM 128 mg/dL (70-110); POTASSIUM 3.7 mmol/L (3.6-5.0); SODIUM 138 mmol/L (132-148); TOTAL PROTEIN 7.1 g/dL (5.8-8.3)
--- NOTE | 2017-04-03 10:34 | CON ---
DATE: HISTORY OF PRESENT ILLNESS: I know Gato very well from multiple consults in the psychiatric floor. I saw her in the emergency room last night and I was called to do a consult on her. She comes into the emergency room with panic attacks. Also, she thought she was going to hurt herself. She had a plan to cut herself, but she did not do it. She tells me she has been taking the medications. She was recently hospitalized few weeks ago and she right now is in bed, comfortable, slept fairly well. She has a history of hypertension, seizures, diabetes, anemia, anxiety, bipolar, depression, schizophrenia. FAMILY HISTORY: Unknown family history diabetes. SOCIAL HISTORY: They have never smoked. No alcohol. No drugs. ALLERGIES: NO KNOWN DRUG ALLERGIES. MEDICATIONS: She is taking aspirin, clozapine, metformin, sertraline at home and she tells she has taken her medications. REVIEW OF SYSTEMS: No changes in vision or hearing. No sore throat. No neck pain. No chest pain. No shortness of breath. No abdominal pain. No nausea, vomiting, constipation, diarrhea. No extremity issues. Just has these thoughts and anxiety, panic attack and she thought she is going to cut herself and she decided to come to the emergency room if anything happened. PHYSICAL EXAMINATION: GENERAL: She is well appearing, nontoxic, comfortable at this time. Alert and oriented x3. VITAL SIGNS: She has 98.8 temperature, 108 pulse, 17 respiratory rate, 119/78 blood pressure and 99% on O2 sat on room air. HEENT: Head is atraumatic, normocephalic. Pupils reactive to light. Extraocular muscles intact. Throat is moist. NECK: Supple. HEART: Regular rate. Normal S1 and S2. LUNGS: Clear to auscultation. No wheezing. No rhonchi. No rales. ABDOMEN: Soft, nontender, positive bowel sounds. No guarding. No rebound. No CVA tenderness. EXTREMITIES: Have no edema. NEUROLOGIC: GCS is 15. Cranial nerves II through XII grossly intact. She could smile. She could stick out the tongue midline. Neurologically, she seems to be intact. SKIN: Warm and dry. No apparent rashes or ulcers. THYROID: Midline. No palpable appreciable lymphadenopathy appreciated. She is now in psychiatric until. She had multiple tests. LABORATORY DATA: She has 138 sodium, potassium is 3.7. BUN is 10 and creatinine is 0.4. GFR is greater than 60. Last blood sugar is 115. Calcium is 9. Total bilirubin is 0.5. AST is 18. ALT is 36. Alkaline phosphatase is 87, total protein is 7.1, albumin is 3.9, globulin 3.2. TSH is 0.92. White count is 10.3, when she came in it was 14, it could have been systemic response to inflammation. It is now down to 10.3 normal. Hemoglobin 7.6, hematocrit 35, platelets 347. Urine was small bacteria. Negative for . Toxicology was completely normal. Chest x-ray was normal. She is being seen by Psychiatry and myself. Medically, we will keep an eye on her blood sugars and hypertension and anemia. EKG is sinus tachycardic. Left ventricular hypertrophy. She is here for possible suicidal thoughts, depression, diabetes, hypertension, anxiety, schizophrenia. Thank you for letting me be involved with her care. Jason Contreras DO [email or web address]
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
[2017-04-04] MEDS: Iron Complex Polysacch 150mg Cap PO SCH (09:33)
--- NOTE | 2017-04-04 10:40 | PN ---
DATE: SUBJECTIVE: I saw Gato resting comfortably in bed. She slept well. Not that hungry this morning. She still wants to stay in bed. She is on Clozaril, Cogentin, Colace, Cozaar, Desyrel, Ecotrin, iron, Glucophage, Haldol, Maalox, milk of magnesia, Norvasc, Tylenol, Zetia and Zoloft. PHYSICAL EXAMINATION: VITAL SIGNS: 97.7 temp, 87 pulse, 115/77 blood pressure, 20 respiratory rate. HEENT: Head is atraumatic, normocephalic. HEART: Regular rate. LUNGS: Clear to auscultation. ABDOMEN: Soft. EXTREMITIES: No edema. LABORATORY DATA: She has a 10.3 white count, much better; 11.6 hemoglobin and 347 platelets. She has 127 blood sugar which is great, 138 sodium, potassium 3.7, BUN 10, creatinine 0.4, calcium is 9, total bili 0.5, AST is 18, ALT is 36, stefany phos 87, total protein 7.1, TSH is 0.92. Overall, I think she is doing much better. She is doing well. Continue with aggressive treatment by psychiatry. I encouraged her to participate in groups, take the medication and eat the diet. Chest x-ray, there was no active disease. I will continue to follow, and she is here for depression, diabetes, hypertension, anemia, bipolar, schizophrenia and suicidal ideation. Jason Contreras DO
--- NOTE | 2017-04-04 14:59 | PCM.PYCHPN ---
Psychiatric Progress Note - Psychiatric Progress Note Patient seen today, length of contact: 30min Patient Chief Complaint: "I am okay, I know I need to concentrate on my problematic areas..." Medical Problems: DM, HTN, dyslipidemia Diagnostic Results: 04/03/17 06:45 04/03/17 06:45 Lab Results 04/03/17 07:17: POC Glucose (mg/dL) 115 H 04/03/17 06:45: TSH 3rd Generation 0.92 04/03/17 06:45: Sodium 138, Potassium 3.7, Chloride 104, Carbon Dioxide 25, Anion Gap 13, BUN 10, Creatinine 0.4 L, Est GFR ( Amer) > 60, Est GFR ( Non-Af Amer) > 60, Random Glucose 128 H, Calcium 9.0, Total Bilirubin 0.5, AST 18, ALT 36, Alkaline Phosphatase 87, Total Protein 7.1, Albumin 3.9, Globulin 3.2, Albumin/Globulin Ratio 1.2 04/03/17 06:45: WBC 10.3 D, RBC 4.11, Hgb 11.6 L, Hct 35.0 L, MCV 85.2, MCH 28.2, MCHC 33.1, RDW 16.4 H, Plt Count 347, MPV 8.4, Gran % 50.2, Lymph % (Auto ) 39.8 H, [place] % (Auto) 8.5 H, Eos % (Auto) 1.2 L, Baso % (Auto) 0.3, Gran # 5.19, Lymph # 4.1 H, [place] # 0.9 H, Eos # 0.1, Baso # 0.03 04/02/17 21:43: POC Glucose (mg/dL) 182 H 04/02/17 10:49: Urine Opiates Screen Negative, Urine Methadone Screen Negative, Ur Barbiturates Screen Negative, Ur Phencyclidine Scrn Negative, Ur Amphetamines Screen Negative, U Benzodiazepines Scrn Negative, U Oth Cocaine Metabols Negative, U Cannabinoids Screen Negative 04/02/17 10:49: Urine Color Yellow, Urine Appearance Clear, Urine pH 6.0, Ur Specific [place] 1.025, Urine Protein Trace H, Urine Glucose (UA) 100 H, Urine Ketones Trace H, Urine Blood Negative, Urine Nitrate Negative, Urine Bilirubin Negative, Urine Urobilinogen 0.2, Ur Leukocyte Esterase Negative, Urine RBC Negative, Urine WBC 0 - 2, Ur Epithelial Cells 4 - 5, Amorphous Sediment Few, Urine Bacteria Small, Urine HCG, Qual Negative 04/02/17 09:40: Alcohol, Quantitative < 10 04/02/17 09:40: Salicylates < 1 L, Acetaminophen < 10.0 L 04/02/17 09:40: Sodium 139, Potassium 3.7, Chloride 103, Carbon Dioxide 21, Anion Gap 19, BUN 10, Creatinine 0.5 L, Est GFR ( Amer) > 60, Est GFR ( Non-Af Amer) > 60, Random Glucose 245 H, Calcium 9.7, Total Bilirubin 0.5, AST 27, ALT 36, Alkaline Phosphatase 106, Total Protein 8.1, Albumin 4.5, Globulin 3.6, Albumin/Globulin Ratio 1.3 04/02/17 09:40: WBC 14.0 H D, RBC 4.53, Hgb 12.8, Hct 38.8, MCV 85.7, MCH 28.3, MCHC 33.0, RDW 16.5 H, Plt Count 394, MPV 8.7, Gran % 59.3, Lymph % (Auto) 34.5 , [place] % (Auto) 5.4, Eos % (Auto) 0.6 L, Baso % (Auto) 0.2, Gran # 8.27 H, Lymph # 4.8 H, [place] # 0.8 H, Eos # 0.1, Baso # 0.03 Vital Signs Temp Pulse Pulse Resp BP Pulse Ox 04/03/17 09:38 91/69 L 04/03/17 07:22 97.5 F L 90 17 91/69 L 04/02/17 18:32 97.6 F 101 H 18 133/94 H 04/02/17 18:09 60 20 04/02/17 16:29 80 20 122/87 100 04/02/17 12:48 91 H 18 121/70 97 04/02/17 09:39 98.8 F 108 H 17 119/78 99 DSM 5 Symptoms Update: shortly patient is 41 years old -[place] female, long and debilitating history of schizophrenia vs schizoaffective, treatment resistant, multiple admissions to the psychiatric inpatient unit in the past, including to this hospital, pt was d/c from [facility] at the beginning of March, less than a month ago, patient is followed by [facility] PACT team, pt is on clozaril and Haldol Dec. as per pt she started to hea voices telling her "it is a time to kill yourself" as per pt, she tried to call PACT team but "nobody was available", pt then decided to come to the hospital, "to make sure that I will be okay", in ED pt verbalized thoughts of killing herself with the plan to " stab myself with a ju-jitsu knife". pt was not able to contract for safety, was admitted for evaluation and stabilization, observation. pt was seen at the treatment team meeting, good personal hygiene, acceptable ADLs. pt was seen in her room, withdrawn, sleeps most of the times, ambulates with slow but steady gait. pt is superficially cooperative, pt is making statements "I was depressed and it was acute deviation from my mental status, now I know I need to concentrate on my problematic areas...", pt learned all the statements from multiple psychiatric admissions. pt still delusional about relationship with Mr. Alvarez pt was seen by PACT team. mental status examination: Patient presented to be disorganized, but pleasant, intermittent eye contact, speech was underproductive, there is poverty of speech , mood described "I feel better", affect was constricted, thought process is disorganized, thought content: reported to hear voices, command type, pt denied thoughts of harming self or others. I/J are limited, impulses are controlled. 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 Injectable Haldol 100mg q monthly Injection due is on April 14 cogentin 1mg po bid for EPS Aspirin [Ecotrin] 81 mg PO DAILY Docusate [Colace] 100 mg PO BID Ezetimibe [Zetia] 10 mg PO DAILY Iron Polysaccharide [Ferrex-150] 150 mg PO DAILY Losartan [Cozaar] 100 mg PO DAILY MetFORMIN [glucoPHAGE] 1,000 mg PO BID will increase Zoloft to 100 mg PO DAILY amLODIPine [Norvasc] 10 mg PO DAILY Medical consult was called Collateral information appreciated We'll monitor closely PACT team contacted, pt was functioning at her baseline, med list confirmed SW evaluation will monitor Gran#, pt is on monthly monitoring of Gran# Medication Change: No Medical Record Reviewed: Yes Consults ordered or reviewed: medical consult appreciated Goal/Treatment Plan - Goal/Treatment Plan Need for Continued Stay: Remain at risks for inpatient hospitalization, Severe depression anxiety, Discharge may exacerbated symptoms, Severe functional impairment Estimated Date of D/C: 04/07/17
[2017-04-05] MEDS: Iron Complex Polysacch 150mg Cap PO SCH (09:19)
--- NOTE | 2017-04-05 10:43 | PN ---
DATE: SUBJECTIVE: I saw Gato resting comfortably in bed. She slept well last night. She is eating well. She is smiling, in good sprits. She is feeling better mentally. No medical issues this morning for me. MEDICATIONS: She is on Clozaril, Cogentin, Colace, Cozaar, Desyrel, Ecotrin, iron, Glucophage, Haldol, Maalox, milk of magnesia, Norvasc, Tylenol, Zetia and Zoloft. PHYSICAL EXAMINATION: VITAL SIGNS: She has 98.1 temperature, 90 pulse, 120/86 blood pressure, and 20 respiratory rate. HEENT: Head is atraumatic and normocephalic. HEART: Regular rate. LUNGS: Clear to auscultation. ABDOMEN: Soft. EXTREMITIES: No edema. LABORATORY DATA: Last labs on 04/03/2017 and she did well. Last blood sugar was 134. ASSESSMENT PLAN: I think she is slowly improving as per psychiatry. She is here for depression, bipolar, schizophrenia, hypertension, diabetes, suicidal ideation, and anemia. Keep a close eye on her as per psychiatry. Jason Contreras DO
--- NOTE | 2017-04-05 15:05 | PCM.PYCHPN ---
Psychiatric Progress Note - Psychiatric Progress Note Patient seen today, length of contact: 30min Patient Chief Complaint: "I am okay, I know I need to concentrate on my problematic areas..." Medical Problems: DM, HTN, dyslipidemia Diagnostic Results: 04/03/17 06:45 04/03/17 06:45 Lab Results 04/03/17 07:17: POC Glucose (mg/dL) 115 H 04/03/17 06:45: TSH 3rd Generation 0.92 04/03/17 06:45: Sodium 138, Potassium 3.7, Chloride 104, Carbon Dioxide 25, Anion Gap 13, BUN 10, Creatinine 0.4 L, Est GFR ( Amer) > 60, Est GFR ( Non-Af Amer) > 60, Random Glucose 128 H, Calcium 9.0, Total Bilirubin 0.5, AST 18, ALT 36, Alkaline Phosphatase 87, Total Protein 7.1, Albumin 3.9, Globulin 3.2, Albumin/Globulin Ratio 1.2 04/03/17 06:45: WBC 10.3 D, RBC 4.11, Hgb 11.6 L, Hct 35.0 L, MCV 85.2, MCH 28.2, MCHC 33.1, RDW 16.4 H, Plt Count 347, MPV 8.4, Gran % 50.2, Lymph % (Auto ) 39.8 H, [place] % (Auto) 8.5 H, Eos % (Auto) 1.2 L, Baso % (Auto) 0.3, Gran # 5.19, Lymph # 4.1 H, [place] # 0.9 H, Eos # 0.1, Baso # 0.03 04/02/17 21:43: POC Glucose (mg/dL) 182 H 04/02/17 10:49: Urine Opiates Screen Negative, Urine Methadone Screen Negative, Ur Barbiturates Screen Negative, Ur Phencyclidine Scrn Negative, Ur Amphetamines Screen Negative, U Benzodiazepines Scrn Negative, U Oth Cocaine Metabols Negative, U Cannabinoids Screen Negative 04/02/17 10:49: Urine Color Yellow, Urine Appearance Clear, Urine pH 6.0, Ur Specific [place] 1.025, Urine Protein Trace H, Urine Glucose (UA) 100 H, Urine Ketones Trace H, Urine Blood Negative, Urine Nitrate Negative, Urine Bilirubin Negative, Urine Urobilinogen 0.2, Ur Leukocyte Esterase Negative, Urine RBC Negative, Urine WBC 0 - 2, Ur Epithelial Cells 4 - 5, Amorphous Sediment Few, Urine Bacteria Small, Urine HCG, Qual Negative 04/02/17 09:40: Alcohol, Quantitative < 10 04/02/17 09:40: Salicylates < 1 L, Acetaminophen < 10.0 L 04/02/17 09:40: Sodium 139, Potassium 3.7, Chloride 103, Carbon Dioxide 21, Anion Gap 19, BUN 10, Creatinine 0.5 L, Est GFR ( Amer) > 60, Est GFR ( Non-Af Amer) > 60, Random Glucose 245 H, Calcium 9.7, Total Bilirubin 0.5, AST 27, ALT 36, Alkaline Phosphatase 106, Total Protein 8.1, Albumin 4.5, Globulin 3.6, Albumin/Globulin Ratio 1.3 04/02/17 09:40: WBC 14.0 H D, RBC 4.53, Hgb 12.8, Hct 38.8, MCV 85.7, MCH 28.3, MCHC 33.0, RDW 16.5 H, Plt Count 394, MPV 8.7, Gran % 59.3, Lymph % (Auto) 34.5 , [place] % (Auto) 5.4, Eos % (Auto) 0.6 L, Baso % (Auto) 0.2, Gran # 8.27 H, Lymph # 4.8 H, [place] # 0.8 H, Eos # 0.1, Baso # 0.03 Vital Signs Temp Pulse Pulse Resp BP Pulse Ox 04/03/17 09:38 91/69 L 04/03/17 07:22 97.5 F L 90 17 91/69 L 04/02/17 18:32 97.6 F 101 H 18 133/94 H 04/02/17 18:09 60 20 04/02/17 16:29 80 20 122/87 100 04/02/17 12:48 91 H 18 121/70 97 04/02/17 09:39 98.8 F 108 H 17 119/78 99 DSM 5 Symptoms Update: shortly patient is 41 years old -[place] female, long and debilitating history of schizophrenia vs schizoaffective, treatment resistant, multiple admissions to the psychiatric inpatient unit in the past, including to this hospital, pt was d/c from [facility] at the beginning of March, less than a month ago, patient is followed by [facility] PACT team, pt is on clozaril and Haldol Dec. as per pt she started to hea voices telling her "it is a time to kill yourself" as per pt, she tried to call PACT team but "nobody was available", pt then decided to come to the hospital, "to make sure that I will be okay", in ED pt verbalized thoughts of killing herself with the plan to " stab myself with a ju-jitsu knife". pt was not able to contract for safety, was admitted for evaluation and stabilization, observation. pt was seen at the treatment team meeting, good personal hygiene, acceptable ADLs. pt was seen in her room, withdrawn, sleeps most of the times, ambulates with slow but steady gait. pt is superficially cooperative, pt is making statements "I was depressed and it was acute deviation from my mental status, now I know I need to concentrate on my problematic areas...", pt learned all the statements from multiple psychiatric admissions. pt still delusional about relationship with Mr. Alvarez, but not drawing him for the past three days pt was seen by PACT team. mental status examination: Patient presented to be disorganized, but pleasant, intermittent eye contact, speech was underproductive, there is poverty of speech , mood described "I feel better", affect was constricted, thought process is disorganized, thought content: reported to hear voices, command type, pt denied thoughts of harming self or others. I/J are limited, impulses are controlled. 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 Injectable Haldol 100mg q monthly Injection due is on April 14 cogentin 1mg po bid for EPS Aspirin [Ecotrin] 81 mg PO DAILY Docusate [Colace] 100 mg PO BID Ezetimibe [Zetia] 10 mg PO DAILY Iron Polysaccharide [Ferrex-150] 150 mg PO DAILY Losartan [Cozaar] 100 mg PO DAILY MetFORMIN [glucoPHAGE] 1,000 mg PO BID Zoloft as increased 04/04/17 to 100 mg PO DAILY for MDD and anxiety amLODIPine [Norvasc] 10 mg PO DAILY Medical consult was called Collateral information appreciated We'll monitor closely PACT team contacted, pt was functioning at her baseline, med list confirmed, pt will be seen by them on Monday SW evaluation will monitor Gran#, pt is on monthly monitoring of Gran#, labs submitted to clozaril [facility] 04/05/17 Medication Change: No Medical Record Reviewed: Yes Goal/Treatment Plan - Goal/Treatment Plan Need for Continued Stay: Remain at risks for inpatient hospitalization, Severe depression anxiety, Discharge may exacerbated symptoms, Severe functional impairment Estimated Date of D/C: 04/07/17
[2017-04-06] MEDS: Iron Complex Polysacch 150mg Cap PO SCH (09:25)
--- NOTE | 2017-04-06 13:02 | PN ---
DATE: SUBJECTIVE: I saw Gato resting comfortably in bed. She is sleeping. She is eating. She is feeling better. She is in good spirits. She is doing better than when she came in. MEDICATIONS: She is on Clozaril, Cogentin, Colace, Cozaar, Desyrel, Ecotrin, iron, Glucophage, Haldol, Maalox, milk of magnesia, Norvasc, Tylenol, Zetia and Zoloft. PHYSICAL EXAMINATION VITAL SIGNS: She has 97.6 temperature, 81 pulse, 125/85 blood pressure, and 20 respiratory rate. HEENT: Head is atraumatic and normocephalic. HEART: Regular rate. LUNGS: Clear to auscultation. ABDOMEN: Soft and obese. EXTREMITIES: No edema. LABORATORY DATA: Last labs on 04/03/2017, she did well, but the CBC and chemistry, last blood sugar was 110. ASSESSMENT AND PLAN: She is here for numerous reasons, depression, diabetes, suicidal ideation, hypertension, anemia, and schizophrenia. Will continue to follow her. Jason Contreras DO
--- NOTE | 2017-04-06 14:40 | PCM.PYCHPN ---
Psychiatric Progress Note - Psychiatric Progress Note Patient seen today, length of contact: 30min Patient Chief Complaint: "I am okay" Medical Problems: DM, HTN, dyslipidemia Diagnostic Results: 04/03/17 06:45 04/03/17 06:45 Lab Results 04/03/17 07:17: POC Glucose (mg/dL) 115 H 04/03/17 06:45: TSH 3rd Generation 0.92 04/03/17 06:45: Sodium 138, Potassium 3.7, Chloride 104, Carbon Dioxide 25, Anion Gap 13, BUN 10, Creatinine 0.4 L, Est GFR ( Amer) > 60, Est GFR ( Non-Af Amer) > 60, Random Glucose 128 H, Calcium 9.0, Total Bilirubin 0.5, AST 18, ALT 36, Alkaline Phosphatase 87, Total Protein 7.1, Albumin 3.9, Globulin 3.2, Albumin/Globulin Ratio 1.2 04/03/17 06:45: WBC 10.3 D, RBC 4.11, Hgb 11.6 L, Hct 35.0 L, MCV 85.2, MCH 28.2, MCHC 33.1, RDW 16.4 H, Plt Count 347, MPV 8.4, Gran % 50.2, Lymph % (Auto ) 39.8 H, [place] % (Auto) 8.5 H, Eos % (Auto) 1.2 L, Baso % (Auto) 0.3, Gran # 5.19, Lymph # 4.1 H, [place] # 0.9 H, Eos # 0.1, Baso # 0.03 04/02/17 21:43: POC Glucose (mg/dL) 182 H 04/02/17 10:49: Urine Opiates Screen Negative, Urine Methadone Screen Negative, Ur Barbiturates Screen Negative, Ur Phencyclidine Scrn Negative, Ur Amphetamines Screen Negative, U Benzodiazepines Scrn Negative, U Oth Cocaine Metabols Negative, U Cannabinoids Screen Negative 04/02/17 10:49: Urine Color Yellow, Urine Appearance Clear, Urine pH 6.0, Ur Specific [place] 1.025, Urine Protein Trace H, Urine Glucose (UA) 100 H, Urine Ketones Trace H, Urine Blood Negative, Urine Nitrate Negative, Urine Bilirubin Negative, Urine Urobilinogen 0.2, Ur Leukocyte Esterase Negative, Urine RBC Negative, Urine WBC 0 - 2, Ur Epithelial Cells 4 - 5, Amorphous Sediment Few, Urine Bacteria Small, Urine HCG, Qual Negative 04/02/17 09:40: Alcohol, Quantitative < 10 04/02/17 09:40: Salicylates < 1 L, Acetaminophen < 10.0 L 04/02/17 09:40: Sodium 139, Potassium 3.7, Chloride 103, Carbon Dioxide 21, Anion Gap 19, BUN 10, Creatinine 0.5 L, Est GFR ( Amer) > 60, Est GFR ( Non-Af Amer) > 60, Random Glucose 245 H, Calcium 9.7, Total Bilirubin 0.5, AST 27, ALT 36, Alkaline Phosphatase 106, Total Protein 8.1, Albumin 4.5, Globulin 3.6, Albumin/Globulin Ratio 1.3 04/02/17 09:40: WBC 14.0 H D, RBC 4.53, Hgb 12.8, Hct 38.8, MCV 85.7, MCH 28.3, MCHC 33.0, RDW 16.5 H, Plt Count 394, MPV 8.7, Gran % 59.3, Lymph % (Auto) 34.5 , [place] % (Auto) 5.4, Eos % (Auto) 0.6 L, Baso % (Auto) 0.2, Gran # 8.27 H, Lymph # 4.8 H, [place] # 0.8 H, Eos # 0.1, Baso # 0.03 Vital Signs Temp Pulse Pulse Resp BP Pulse Ox 04/03/17 09:38 91/69 L 04/03/17 07:22 97.5 F L 90 17 91/69 L 04/02/17 18:32 97.6 F 101 H 18 133/94 H 04/02/17 18:09 60 20 04/02/17 16:29 80 20 122/87 100 04/02/17 12:48 91 H 18 121/70 97 04/02/17 09:39 98.8 F 108 H 17 119/78 99 DSM 5 Symptoms Update: shortly patient is 41 years old -[place] female, long and debilitating history of schizophrenia vs schizoaffective, treatment resistant, multiple admissions to the psychiatric inpatient unit in the past, including to this hospital, pt was d/c from [facility] at the beginning of March, less than a month ago, patient is followed by [facility] PACT team, pt is on clozaril and Haldol Dec. as per pt she started to hea voices telling her "it is a time to kill yourself" as per pt, she tried to call PACT team but "nobody was available", pt then decided to come to the hospital, "to make sure that I will be okay", in ED pt verbalized thoughts of killing herself with the plan to " stab myself with a ju-jitsu knife". pt was not able to contract for safety, was admitted for evaluation and stabilization, observation. pt was seen next to the nursing station, good personal hygiene, acceptable ADLs , today was the first day when pt was observed outside of her room and not sleeping. ambulates with slow but steady gait. pt is superficially cooperative, pt is making statements "I was depressed and it was acute deviation from my mental status, now I know I need to concentrate on my problematic areas...", pt learned all the statements from multiple psychiatric admissions. pt still delusional about relationship with Mr. Alvarez, but not drawing him for the past three days pt was seen by PACT team. mental status examination: Patient presented to be disorganized, but pleasant, intermittent eye contact, speech was underproductive, there is poverty of speech , mood described "I feel better", affect was constricted, thought process is disorganized, thought content: reported to hear voices, command type, pt denied thoughts of harming self or others. I/J are limited, impulses are controlled. 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 Injectable Haldol 100mg q monthly Injection due is on April 14 cogentin 1mg po bid for EPS Aspirin [Ecotrin] 81 mg PO DAILY Docusate [Colace] 100 mg PO BID Ezetimibe [Zetia] 10 mg PO DAILY Iron Polysaccharide [Ferrex-150] 150 mg PO DAILY Losartan [Cozaar] 100 mg PO DAILY MetFORMIN [glucoPHAGE] 1,000 mg PO BID Zoloft as increased 04/04/17 to 100 mg PO DAILY for MDD and anxiety amLODIPine [Norvasc] 10 mg PO DAILY Medical consult was called Collateral information appreciated We'll monitor closely PACT team contacted, pt was functioning at her baseline, med list confirmed, pt will be seen by them on Monday SW evaluation will monitor Gran#, pt is on monthly monitoring of Gran#, labs submitted to clozaril [facility]S 04/05/17 Medication Change: No Medical Record Reviewed: Yes Consults ordered or reviewed: medical consult appreciated Goal/Treatment Plan - Goal/Treatment Plan Need for Continued Stay: Remain at risks for inpatient hospitalization, Severe depression anxiety, Discharge may exacerbated symptoms, Severe functional impairment Estimated Date of D/C: 04/07/17
[2017-04-07] MEDS: Iron Complex Polysacch 150mg Cap PO SCH (12:09)
--- NOTE | 2017-04-07 14:26 | PN ---
DATE: SUBJECTIVE: I saw Gato resting comfortably in the psychiatric unit. She was sleeping. She was very comfortable at this time. She tells me she is feeling better, tired, in good spirits. No more suicidal or depression thoughts. MEDICATIONS: She is on Clozaril, Cogentin, Colace, Cozaar, Desyrel, Ecotrin, iron, Glucophage, Haldol, Maalox, milk of magnesia, Norvasc, Tylenol, Zetia and Zoloft. PHYSICAL EXAMINATION: VITAL SIGNS: 98.4 temperature, 86 pulse, 123/83 blood pressure, 20 respiratory rate. HEENT: Head is atraumatic and normocephalic. HEART: Regular rate. LUNGS: Clear to auscultation. ABDOMEN: Soft and obese. EXTREMITIES: No edema. LABORATORY DATA: Last labs on the , she did very well, last blood sugar was 96. ASSESSMENT AND PLAN: Continue with the rest of treatment and care, and psychiatric care. She was here for depression, diabetes, hypertension, schizophrenia, bipolar. Jason Contreras DO
--- NOTE | 2017-04-07 14:28 | PCM.PYCHPN ---
Psychiatric Progress Note - Psychiatric Progress Note Patient seen today, length of contact: 30min Patient Chief Complaint: "I am okay" Medical Problems: DM, HTN, dyslipidemia Diagnostic Results: 04/03/17 06:45 04/03/17 06:45 Lab Results 04/03/17 07:17: POC Glucose (mg/dL) 115 H 04/03/17 06:45: TSH 3rd Generation 0.92 04/03/17 06:45: Sodium 138, Potassium 3.7, Chloride 104, Carbon Dioxide 25, Anion Gap 13, BUN 10, Creatinine 0.4 L, Est GFR ( Amer) > 60, Est GFR ( Non-Af Amer) > 60, Random Glucose 128 H, Calcium 9.0, Total Bilirubin 0.5, AST 18, ALT 36, Alkaline Phosphatase 87, Total Protein 7.1, Albumin 3.9, Globulin 3.2, Albumin/Globulin Ratio 1.2 04/03/17 06:45: WBC 10.3 D, RBC 4.11, Hgb 11.6 L, Hct 35.0 L, MCV 85.2, MCH 28.2, MCHC 33.1, RDW 16.4 H, Plt Count 347, MPV 8.4, Gran % 50.2, Lymph % (Auto ) 39.8 H, [place] % (Auto) 8.5 H, Eos % (Auto) 1.2 L, Baso % (Auto) 0.3, Gran # 5.19, Lymph # 4.1 H, [place] # 0.9 H, Eos # 0.1, Baso # 0.03 04/02/17 21:43: POC Glucose (mg/dL) 182 H 04/02/17 10:49: Urine Opiates Screen Negative, Urine Methadone Screen Negative, Ur Barbiturates Screen Negative, Ur Phencyclidine Scrn Negative, Ur Amphetamines Screen Negative, U Benzodiazepines Scrn Negative, U Oth Cocaine Metabols Negative, U Cannabinoids Screen Negative 04/02/17 10:49: Urine Color Yellow, Urine Appearance Clear, Urine pH 6.0, Ur Specific [place] 1.025, Urine Protein Trace H, Urine Glucose (UA) 100 H, Urine Ketones Trace H, Urine Blood Negative, Urine Nitrate Negative, Urine Bilirubin Negative, Urine Urobilinogen 0.2, Ur Leukocyte Esterase Negative, Urine RBC Negative, Urine WBC 0 - 2, Ur Epithelial Cells 4 - 5, Amorphous Sediment Few, Urine Bacteria Small, Urine HCG, Qual Negative 04/02/17 09:40: Alcohol, Quantitative < 10 04/02/17 09:40: Salicylates < 1 L, Acetaminophen < 10.0 L 04/02/17 09:40: Sodium 139, Potassium 3.7, Chloride 103, Carbon Dioxide 21, Anion Gap 19, BUN 10, Creatinine 0.5 L, Est GFR ( Amer) > 60, Est GFR ( Non-Af Amer) > 60, Random Glucose 245 H, Calcium 9.7, Total Bilirubin 0.5, AST 27, ALT 36, Alkaline Phosphatase 106, Total Protein 8.1, Albumin 4.5, Globulin 3.6, Albumin/Globulin Ratio 1.3 04/02/17 09:40: WBC 14.0 H D, RBC 4.53, Hgb 12.8, Hct 38.8, MCV 85.7, MCH 28.3, MCHC 33.0, RDW 16.5 H, Plt Count 394, MPV 8.7, Gran % 59.3, Lymph % (Auto) 34.5 , [place] % (Auto) 5.4, Eos % (Auto) 0.6 L, Baso % (Auto) 0.2, Gran # 8.27 H, Lymph # 4.8 H, [place] # 0.8 H, Eos # 0.1, Baso # 0.03 Vital Signs Temp Pulse Pulse Resp BP Pulse Ox 04/03/17 09:38 91/69 L 04/03/17 07:22 97.5 F L 90 17 91/69 L 04/02/17 18:32 97.6 F 101 H 18 133/94 H 04/02/17 18:09 60 20 04/02/17 16:29 80 20 122/87 100 04/02/17 12:48 91 H 18 121/70 97 04/02/17 09:39 98.8 F 108 H 17 119/78 99 DSM 5 Symptoms Update: shortly patient is 41 years old -[place]og[place] female, long and debilitating history of schizophrenia vs schizoaffective, treatment resistant, multiple admissions to the psychiatric inpatient unit in the past, including to this hospital, pt was d/c from [facility] at the beginning of March, less than a month ago, patient is followed by [facility] PACT team, pt is on clozaril and Haldol Dec. as per pt she started to hea voices telling her "it is a time to kill yourself" as per pt, she tried to call PACT team but "nobody was available", pt then decided to come to the hospital, "to make sure that I will be okay", in ED pt verbalized thoughts of killing herself with the plan to " stab myself with a ju-jitsu knife". pt was not able to contract for safety, was admitted for evaluation and stabilization, observation. pt was seen in her room, pt is sleepy, low profile, superficial, pt seems to be closer to her baseline, PACT team is visiting pt on Monday. pt is superficially cooperative, pt is making statements "I was depressed and it was acute deviation from my mental status, now I know I need to concentrate on my problematic areas...", pt learned all the statements from multiple psychiatric admissions. pt still delusional about relationship with Mr. Alvarez, but not drawing him for the past three days mental status examination: Patient presented to be disorganized, but pleasant, intermittent eye contact, speech was underproductive, there is poverty of speech , mood described "I feel better", affect was constricted, thought process is disorganized, thought content: reported to hear voices, command type, pt denied thoughts of harming self or others. I/J are limited, impulses are controlled. 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 Injectable Haldol 100mg q monthly Injection due is on April 14 cogentin 1mg po bid for EPS Aspirin [Ecotrin] 81 mg PO DAILY Docusate [Colace] 100 mg PO BID Ezetimibe [Zetia] 10 mg PO DAILY Iron Polysaccharide [Ferrex-150] 150 mg PO DAILY Losartan [Cozaar] 100 mg PO DAILY MetFORMIN [glucoPHAGE] 1,000 mg PO BID Zoloft as increased 04/04/17 to 100 mg PO DAILY for MDD and anxiety amLODIPine [Norvasc] 10 mg PO DAILY Medical consult was called Collateral information appreciated We'll monitor closely PACT team contacted, pt was functioning at her baseline, med list confirmed, pt will be seen by them on Monday tentative discharge on Monday04/10/17 SW evaluation will monitor Gran#, pt is on monthly monitoring of Gran#, labs submitted to clozaril [facility] 04/05/17 Medication Change: No Medical Record Reviewed: Yes Goal/Treatment Plan - Goal/Treatment Plan Need for Continued Stay: Remain at risks for inpatient hospitalization, Severe depression anxiety, Discharge may exacerbated symptoms, Severe functional impairment Estimated Date of D/C: 04/07/17
[2017-04-08 06:55] VITALS: O2SAT 98
[2017-04-08] MEDS: Iron Complex Polysacch 150mg Cap PO SCH (08:39)
--- NOTE | 2017-04-08 09:10 | PCM.PYCHPN ---
Psychiatric Progress Note - Psychiatric Progress Note Patient seen today, length of contact: 25 min Patient Chief Complaint: "real good" Problems Identified/Issues Discussed: I reviewed assessment and recent notes. I met with patient at bedside. She is known to me from numerous prior admissions on the unit. Patient is oriented x3 and superficially cooperative. Reports that she is feeling "real good" and that she is sleeping well. She denies recurrence of hallucinations or suicidal thoughts. Patient doesn't appear to be actively responding to internal stimuli though she appears internally preoccupied and tired. She is not overtly bizarre during my visit and specific delusions were not elicited during this visit. Dr. José's progress note indicates that patient is still delusional about relationship with "Mr. Alvarez". As usual, patient has been cooperative and polite on the unit. Loves to watch television. Staff have seen her talking to herself in two different voices. There were no major behavioral issues overnight. Diagnostic Results: Schizoaffective disorder, bipolar type r/o schizophrenia Medication Change: No Medical Record Reviewed: Yes Mental Status Examination - Cognitive Function Orientation: Person, Place, Situation Attention: WNL - Mood Mood: Other ("real good") - Affect Affect: Constricted, Flat - Speech Speech: Appropriate - Formal Thought Process Formal Thought Process: Delusions (Dr. José's progress note indicates that patient is still delusional about relationship with "Mr. 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 Pt is on monthly monitoring of Gran#, labs submitted to clozaril [facility]S 04/05/17 * Injectable Haldol 100mg q monthly, Injection due on April 14 * cogentin 1mg po bid for EPS prophylaxis * Zoloft as increased 04/04/17 to 100 mg PO DAILY for MDD and anxiety * PACT team contacted, pt was functioning at her baseline, med list confirmed, pt will be seen by them today * Tentative discharge on Monday04/10/17 * Vitals reviewed and noted below: Selected Entries 04/06/17 04/06/17 04/07/17 09:26 15:57 06:54 Temperature 98.4 F Pulse Rate 102 H 86 Respiratory 20 Rate Blood Pressure 125/85 116/81 123/83 04/07/17 04/07/17 12:09 16:19 Temperature 98.5 F Pulse Rate 94 H Respiratory Rate Blood Pressure 123/83 122/87 Estimated Date of D/C: 04/07/17
--- NOTE | 2017-04-08 13:29 | PN ---
SUBJECTIVE: I saw Gato resting comfortably in bed. She is sleeping. She went up to have breakfast, came back. She is smiling, good spirits, calm. MEDICATIONS: She is on Clozaril, Cogentin, Colace, Cozaar, Desyrel, Ecotrin, iron, Glucophage, Haldol, Maalox, milk of magnesia, Norvasc, Tylenol, Zetia, and Zoloft. She tells me she is feeling better mentally. PHYSICAL EXAMINATION: VITAL SIGNS: Temperature 98.3, 87 pulse, 116/80 blood pressure, 18 respiratory rate, 90% O2 sat on room air. HEENT: Head is atraumatic, normocephalic. Throat is moist. NECK: Supple. HEART: Regular rate. LUNGS: Decreased breath sounds. She would not give me good deep breath sound, but it is clear to auscultation. No wheezes, no rhonchi, no rales. ABDOMEN: Soft, obese. EXTREMITIES: No edema. Overall, she is doing quite well I think. Last blood sugar was 96 and 161 and 115. Her blood pressure is good. Diabetes is good. She is really staying quite stable here, and I think she is improving as per Psychiatry. ASSESSMENT: Depression, suicidal ideation, hypertension, diabetes, anemia, and schizophrenia. Jason Contreras DO
[2017-04-09] MEDS: Iron Complex Polysacch 150mg Cap PO SCH (08:28)
--- NOTE | 2017-04-09 09:00 | PCM.PYCHPN ---
Psychiatric Progress Note - Psychiatric Progress Note Patient seen today, length of contact: 25 min Patient Chief Complaint: "so-so" Problems Identified/Issues Discussed: I reviewed recent notes and met with patient at bedside. Patient remains oriented x3 and superficially cooperative. Reports that she is feeling "so-so" and that she is sleeping well. She denies recurrence of hallucinations or suicidal thoughts. Patient doesn't appear to be actively responding to internal stimuli though she still appears preoccupied. She is not overtly bizarre during my visit and specific delusions were not elicited. She denies any side effects, discomfort or pain. Sleeping well on the unit. Nursing notes also indicates that patient has been in good control, polite and visible. She likes interacting with other patients. Cooperative with staff requests. Staff have seen her talking to herself in two different voices this weekend (though not today yet). There were no behavioral issues over the weekend. Diagnostic Results: Schizoaffective disorder, bipolar type r/o schizophrenia Medication Change: No Medical Record Reviewed: Yes Mental Status Examination - Cognitive Function Orientation: Person, Place, Situation Attention: WNL - Mood Mood: Other ("so-so") - Affect Affect: Constricted, Flat - Speech Speech: Appropriate - Formal Thought Process Formal Thought Process: Delusions (Dr. José's progress note indicates that patient is still delusional about relationship with "Mr. 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 Pt is on monthly monitoring of Gran#, labs submitted to clozaril [facility]S 04/05/17 * Injectable Haldol 100mg q monthly, Injection due on April 14 * cogentin 1 mg po bid for EPS prophylaxis * Zoloft as increased 04/04/17 to 100 mg PO DAILY for MDD and anxiety * PACT team contacted, pt was functioning at her baseline, med list confirmed by Dr. José. * Tentative discharge on Monday04/10/17 * Appreciate f/u by Dr. Contreras on 04/08/17 * Vitals reviewed and noted below: Selected Entries 04/07/17 04/08/17 04/08/17 16:19 06:54 08:39 Temperature 98.5 F 98.3 F Pulse Rate 94 H 87 Respiratory 18 Rate Blood Pressure 122/87 116/83 116/83 O2 Sat by Pulse 98 Oximetry 04/08/17 16:30 Temperature Pulse Rate 96 H Respiratory Rate Blood Pressure 115/77 O2 Sat by Pulse Oximetry Estimated Date of D/C: 04/07/17
--- NOTE | 2017-04-09 13:56 | PN ---
DATE: SUBJECTIVE: I saw Gato in the room psychiatric floor. She is sleeping in bed. She got up and had breakfast. She is doing better. She tells me she has no complaints at this time. She is in good spirits. MEDICATIONS: She is on Clozaril, Cogentin, Colace, Cozaar, Desyrel, Ecotrin, iron, Glucophage, Haldol, Maalox, milk of magnesia, Norvasc, Tylenol, Zetia, and Zoloft. PHYSICAL EXAMINATION: VITAL SIGNS: She has a 97.8 temperature, 80 pulse, 118/82 blood pressure, 20 respiratory rate, and 90% O2 sat on room air. HEENT: Head is atraumatic and normocephalic. HEART: Regular rate. LUNGS: Clear to auscultation. ABDOMEN: Soft and obese. EXTREMITIES: No edema. LABORATORY DATA: Last labs, she had 87 sugar. ASSESSMENT AND PLAN: Overall I found her to be doing quite well. She is being seen by Psychiatry. I discussed with her, her depression,which is improved no more suicidal thoughts; her diabetes; hypertension; and her diet and she will try to make better choices and she will continue with psychiatric care. I will follow. Jason Contreras DO
[2017-04-10] MEDS: Iron Complex Polysacch 150mg Cap PO SCH (08:29)
--- NOTE | 2017-04-10 13:07 | PCM.BM ---
Treatment Plan Problems - Problems identified on initial assessmt suicidal ideation Date Initiated: 04/02/17 Time Initiated: 21:45 Date resolved: 04/10/17 Assessment reference: NA Status: Active Comment: DENIES S/H IDEATION Depression Date Initiated: 04/02/17 Time Initiated: 21:45 Date resolved: 04/10/17 Assessment reference: NA Status: Active Comment: MOOD AND AFFECT IS IMPROVING Treatment assets and liabiliti Patient Assests: adapts well, cooperative, educated, motivated, self-reliant, ADL independent, good support system, negotiates basic needs, financial stabiity , cognitively intact, good interpersonal skills Patient Liabilities: poor support system - Milieu Protocol Maintain good personal hygiene: daily Encourage regular showers, daily Remind patient to perform daily oral care, daily Assist patient to perform ADL's Maintain personal safety: daily Educate patient to report safety concerns to staff, daily Monitor environment for contraband/sharps Medication safety: Monitor for expected outcome, potential side effects: daily, Assess barriers to learning: daily, Assess readiness for medication education: daily Milieu Narrative: * milieu, structure, supportive therapy * 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 Pt is on monthly monitoring of Gran#, labs submitted to clozaril [facility]S 04/05/17 * Injectable Haldol 100mg q monthly, Injection due on April 14 * cogentin 1 mg po bid for EPS prophylaxis * Zoloft as increased 04/04/17 to 100 mg PO DAILY for MDD and anxiety * PACT team contacted, pt was functioning at her baseline, med list confirmed by Dr. José. * Tentative discharge on Monday04/10/17 * Appreciate f/u by Dr. Contreras on 04/08/17 * Vitals reviewed and noted below: Selected Entries 04/07/17 04/08/17 04/08/17 16:19 06:54 08:39 Temperature 98.5 F 98.3 F Pulse Rate 94 H 87 Respiratory 18 Rate Blood Pressure 122/87 116/83 116/83 O2 Sat by Pulse 98 Oximetry 04/08/17 16:30 Temperature Pulse Rate 96 H Respiratory Rate Blood Pressure 115/77 O2 Sat by Pulse Oximetry Family Contact Family involvement: Family/SO is involved Family contact: Patient agrees to contact - Outside Agency [facility]-PACT Care involvment: Information-sharing [facility] contact number: [phone] Discharge/Continuing Care - Education Needs Education Needs: Patient Medication, Patient Coping Skills, Patient Anger Management skills - Discharge Discharge Criteria: Free of Suicidal thoughts - Treatment Team Participation Patient/Family/SO Statement: * milieu, structure, supportive therapy * 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 Pt is on monthly monitoring of Gran#, labs submitted to clozaril [facility]S 04/05/17 * Injectable Haldol 100mg q monthly, Injection due on April 14 * cogentin 1 mg po bid for EPS prophylaxis * Zoloft as increased 04/04/17 to 100 mg PO DAILY for MDD and anxiety * PACT team contacted, pt was functioning at her baseline, med list confirmed by Dr. José. * Tentative discharge on Monday04/10/17 * Appreciate f/u by Dr. Contreras on 04/08/17 * Vitals reviewed and noted below: Selected Entries 04/07/17 04/08/17 04/08/17 16:19 06:54 08:39 Temperature 98.5 F 98.3 F Pulse Rate 94 H 87 Respiratory 18 Rate Blood Pressure 122/87 116/83 116/83 O2 Sat by Pulse 98 Oximetry 04/08/17 16:30 Temperature Pulse Rate 96 H Respiratory Rate Blood Pressure 115/77 O2 Sat by Pulse Oximetry Treatment Plan Review - Problem suicidal ideation Time Initiated: 21:45 Depression Time Initiated: 21:45
--- NOTE | 2017-04-10 13:16 | PN ---
DATE: SUBJECTIVE: I saw Gato resting comfortably in bed. She was actually quite alert this morning, it is the best I have seen her. She is feeling well. No complains of depression or suicidal ideation. She is in good spirits. She is eating breakfast, lunch, dinner and participating. MEDICATIONS: She is on Clozaril, Cogentin, Colace, Cozaar, Desyrel, Ecotrin, Iron, Glucophage, Haldol, Maalox, milk of magnesia, Norvasc, Tylenol, Zetia and Zoloft. PHYSICAL EXAMINATION: VITAL SIGNS: She has 97.7 temperature, 77 pulse, blood pressure is 103/68 and bounced up to 144/100, 18 respiratory rate. HEENT: Head is atraumatic and normocephalic. HEART: Regular rate. LUNGS: Clear to auscultation. ABDOMEN: Soft, obese, nontender. EXTREMITIES: No edema. LABORATORY DATA: Blood sugar was 96. She is being seen by Psychiatry. ASSESSMENT AND PLAN: She is on amlodipine and losartan for blood pressure. I will make sure she gets it this morning, get the blood pressure down, she will be on a low-salt diet. I encouraged her to walk around and participate as per Psychiatry. Jason Contreras DO
--- NOTE | 2017-04-10 14:01 | PCM.PYCHPN ---
Psychiatric Progress Note - Psychiatric Progress Note Patient seen today, length of contact: 25 min Patient Chief Complaint: "I am OK" Problems Identified/Issues Discussed: Patient seen in treatment team. Client denies any symptoms, and indicates she is doing well. She has been isolating in her room and not taking part in unit activities, sleeping during the day. She was encouraged to engage in unit activities. Medication Change: No Medical Record Reviewed: Yes Mental Status Examination - Cognitive Function Orientation: Person, Place, Situation Attention: WNL - Mood Mood: Other ("so-so") - Affect Affect: Constricted, Flat - Speech Speech: Appropriate - Formal Thought Process Formal Thought Process: Delusions (Dr. José's progress note indicates that patient is still delusional about relationship with "Mr. Alvarez".) - Suicidal Ideation Suicidal Ideation: No - Homicidal Ideation Homicidal Ideation: No Goal/Treatment Plan - Goal/Treatment Plan Need for Continued Stay: Remain at risks for inpatient hospitalization, Severe depression anxiety, Discharge may exacerbated symptoms, Severe functional impairment Estimated Date of D/C: 04/07/17
[2017-04-11 07:24] VITALS: RESP 20
[2017-04-11] MEDS: Iron Complex Polysacch 150mg Cap PO SCH (08:59)
--- NOTE | 2017-04-11 10:55 | PN ---
DATE: SUBJECTIVE: I saw Gato resting in bed. She slept well. She is participating. She is eating well. MEDICATIONS: She is on Clozaril, Cogentin, Colace, Cozaar, Desyrel, Ecotrin, iron, Glucophage, Haldol, milk of magnesia, Maalox, Norvasc, Tylenol, Zetia, and Zoloft. PHYSICAL EXAMINATION: VITAL SIGNS: She has 98.2 temperature, 79 pulse, 110/69 blood pressure, and 20 respiratory rate. HEENT: Head is atraumatic and normocephalic. HEART: Regular rate. LUNGS: Clear to auscultation. ABDOMEN: Soft, obese, and nontender. No guarding, no rebound. No CVA tenderness. EXTREMITIES: No edema. She looks good today. LABORATORY DATA: On the , she did well. Last blood sugar was 80. ASSESSMENT AND PLAN: She was seen by Psychiatry. As per Psychiatry, I think she is improving. She was seen for depression and diabetes, and hopefully, she will be doing very well. Jason Contreras DO
[2017-04-11 13:18] LABS: BASO # 0.03 K/mm3 (0.0-2.0); BASO % 0.3 % (0.0-3.0); EOS # 0.1 (0.0-0.7); EOS % 0.4 % (1.5-5.0); GRAN # 7.59 (1.4-6.5); GRAN % 64.8 % (50.0-68.0); HEMATOCRIT 37.1 % (36.0-48.0); LYMPH # 3.4 (1.2-3.4); LYMPH % 28.8 % (22.0-35.0); MEAN CELL VOLUME 84.7 fl (80.0-105.0); MEAN CORPUSCULAR HEMOGLOBIN 28.5 pg (25.0-35.0); MEAN CORPUSCULAR HGB CONC 33.7 g/dl (31.0-37.0); MEAN PLATELET VOLUME 8.4 fl (7.0-11.0); MONO # 0.7 (0.1-0.6); MONO % 5.7 % (1.0-6.0); RED CELL DISTRIBUTION WIDTH 15.9 % (11.5-14.5); WHITE BLOOD COUNT 11.7 10^3/ul (4.5-11.0)
--- NOTE | 2017-04-11 15:44 | PCM.PYCHPN ---
Psychiatric Progress Note - Psychiatric Progress Note Patient seen today, length of contact: 30min Patient Chief Complaint: "I am better than I was before, before I was very depressed, hopeless, now I am back to my normal myself". Medical Problems: DM, HTN, dyslipidemia Diagnostic Results: 04/03/17 06:45 04/03/17 06:45 Lab Results 04/03/17 07:17: POC Glucose (mg/dL) 115 H 04/03/17 06:45: TSH 3rd Generation 0.92 04/03/17 06:45: Sodium 138, Potassium 3.7, Chloride 104, Carbon Dioxide 25, Anion Gap 13, BUN 10, Creatinine 0.4 L, Est GFR ( Amer) > 60, Est GFR ( Non-Af Amer) > 60, Random Glucose 128 H, Calcium 9.0, Total Bilirubin 0.5, AST 18, ALT 36, Alkaline Phosphatase 87, Total Protein 7.1, Albumin 3.9, Globulin 3.2, Albumin/Globulin Ratio 1.2 04/03/17 06:45: WBC 10.3 D, RBC 4.11, Hgb 11.6 L, Hct 35.0 L, MCV 85.2, MCH 28.2, MCHC 33.1, RDW 16.4 H, Plt Count 347, MPV 8.4, Gran % 50.2, Lymph % (Auto ) 39.8 H, Crawford % (Auto) 8.5 H, Eos % (Auto) 1.2 L, Baso % (Auto) 0.3, Gran # 5.19, Lymph # 4.1 H, Crawford # 0.9 H, Eos # 0.1, Baso # 0.03 04/02/17 21:43: POC Glucose (mg/dL) 182 H 04/02/17 10:49: Urine Opiates Screen Negative, Urine Methadone Screen Negative, Ur Barbiturates Screen Negative, Ur Phencyclidine Scrn Negative, Ur Amphetamines Screen Negative, U Benzodiazepines Scrn Negative, U Oth Cocaine Metabols Negative, U Cannabinoids Screen Negative 04/02/17 10:49: Urine Color Yellow, Urine Appearance Clear, Urine pH 6.0, Ur Specific [place] 1.025, Urine Protein Trace H, Urine Glucose (UA) 100 H, Urine Ketones Trace H, Urine Blood Negative, Urine Nitrate Negative, Urine Bilirubin Negative, Urine Urobilinogen 0.2, Ur Leukocyte Esterase Negative, Urine RBC Negative, Urine WBC 0 - 2, Ur Epithelial Cells 4 - 5, Amorphous Sediment Few, Urine Bacteria Small, Urine HCG, Qual Negative 04/02/17 09:40: Alcohol, Quantitative < 10 04/02/17 09:40: Salicylates < 1 L, Acetaminophen < 10.0 L 04/02/17 09:40: Sodium 139, Potassium 3.7, Chloride 103, Carbon Dioxide 21, Anion Gap 19, BUN 10, Creatinine 0.5 L, Est GFR ( Amer) > 60, Est GFR ( Non-Af Amer) > 60, Random Glucose 245 H, Calcium 9.7, Total Bilirubin 0.5, AST 27, ALT 36, Alkaline Phosphatase 106, Total Protein 8.1, Albumin 4.5, Globulin 3.6, Albumin/Globulin Ratio 1.3 04/02/17 09:40: WBC 14.0 H D, RBC 4.53, Hgb 12.8, Hct 38.8, MCV 85.7, MCH 28.3, MCHC 33.0, RDW 16.5 H, Plt Count 394, MPV 8.7, Gran % 59.3, Lymph % (Auto) 34.5 , Crawford % (Auto) 5.4, Eos % (Auto) 0.6 L, Baso % (Auto) 0.2, Gran # 8.27 H, Lymph # 4.8 H, Crawford # 0.8 H, Eos # 0.1, Baso # 0.03 Vital Signs Temp Pulse Pulse Resp BP Pulse Ox 04/03/17 09:38 91/69 L 04/03/17 07:22 97.5 F L 90 17 91/69 L 04/02/17 18:32 97.6 F 101 H 18 133/94 H 04/02/17 18:09 60 20 04/02/17 16:29 80 20 122/87 100 04/02/17 12:48 91 H 18 121/70 97 04/02/17 09:39 98.8 F 108 H 17 119/78 99 Temp Pulse Resp BP Pulse Ox 98.2 F 79 20 110/69 98 04/11/17 07:23 04/11/17 07:23 04/11/17 07:23 04/11/17 08:59 04/08/17 06:54 Laboratory Results - last 24 hr 04/10/17 04/10/17 04/11/17 16:52 21:44 07:22 WBC RBC Hgb Hct MCV MCH MCHC RDW Plt Count MPV Gran % Lymph % (Auto) Crawford % (Auto) Eos % (Auto) Baso % (Auto) Gran # Lymph # Crawford # Eos # Baso # POC Glucose (mg/dL) 133 H 128 H 80 04/11/17 04/11/17 11:15 13:00 WBC 11.7 H RBC 4.38 Hgb 12.5 Hct 37.1 MCV 84.7 MCH 28.5 MCHC 33.7 RDW 15.9 H Plt Count 413 MPV 8.4 Gran % 64.8 Lymph % (Auto) 28.8 Crawford % (Auto) 5.7 Eos % (Auto) 0.4 L Baso % (Auto) 0.3 Gran # 7.59 H Lymph # 3.4 Crawford # 0.7 H Eos # 0.1 Baso # 0.03 POC Glucose (mg/dL) 114 H DSM 5 Symptoms Update: shortly patient is 41 years old -[place] female, long and 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 at the beginning of March, less than a month ago, patient is followed by [facility] PACT team, pt is on clozaril and Haldol Dec. as per pt she started to hea voices telling her "it is a time to kill yourself" as per pt, she tried to call PACT team but "nobody was available", pt then decided to come to the hospital, "to make sure that I will be okay", in ED pt verbalized thoughts of killing herself with the plan to " stab myself with a ju-jitsu knife". pt was not able to contract for safety, was admitted for evaluation and stabilization, observation. pt was seen today at the treatment team room, wears her wig, pt tolerates meds well, labs will be done at am. superficial, pt seems to be closer to her baseline, PACT team was contacted, pt will be d/c tomorrow and followed by them tomorrow. pt tolerates meds well, no side effects, AIMS 0, no EPS. mental status examination: Patient presented to be disorganized, but pleasant, intermittent eye contact, speech was underproductive, there is poverty of speech , mood described "I feel better", affect was constricted, thought process is disorganized, thought content: reported to hear voices, command type, pt denied thoughts of harming self or others. I/J are limited, impulses are controlled. 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 Injectable Haldol 100mg q monthly Injection due is on April 14 cogentin 1mg po bid for EPS Aspirin [Ecotrin] 81 mg PO DAILY Docusate [Colace] 100 mg PO BID Ezetimibe [Zetia] 10 mg PO DAILY Iron Polysaccharide [Ferrex-150] 150 mg PO DAILY Losartan [Cozaar] 100 mg PO DAILY MetFORMIN [glucoPHAGE] 1,000 mg PO BID Zoloft as increased 04/04/17 to 100 mg PO DAILY for MDD and anxiety amLODIPine [Norvasc] 10 mg PO DAILY Medical consult was called Collateral information appreciated We'll monitor closely SW evaluation will monitor Gran#, pt is on monthly monitoring of Gran#, labs submitted to clozaril [facility]S 04/05/17 Medication Change: No Medical Record Reviewed: Yes Mental Status Examination - Cognitive Function Orientation: Person, Place, Situation Attention: WNL - Mood Mood: Other ("so-so") - Affect Affect: Constricted, Flat - Speech Speech: Appropriate - Formal Thought Process Formal Thought Process: Delusions (Dr. José's progress note indicates that patient is still delusional about relationship with "Mr. Alvarez".) - Suicidal Ideation Suicidal Ideation: No - Homicidal Ideation Homicidal Ideation: No Goal/Treatment Plan - Goal/Treatment Plan Need for Continued Stay: Remain at risks for inpatient hospitalization, Severe depression anxiety, Discharge may exacerbated symptoms, Severe functional impairment Estimated Date of D/C: 04/07/17 (pt has mild leukocytosis, will be f/u by medical team at am, CBC will be repeated at am)
[2017-04-12 07:02] VITALS: PULSE 81; TEMP 98.1
[2017-04-12 07:25] LABS: BASO # 0.04 K/mm3 (0.0-2.0); BASO % 0.4 % (0.0-3.0); EOS # 0.1 (0.0-0.7); GRAN # 4.69 (1.4-6.5); GRAN % 45.5 % (50.0-68.0); HEMATOCRIT 33.5 % (36.0-48.0); LYMPH # 4.7 (1.2-3.4); LYMPH % 46.1 % (22.0-35.0); MEAN CELL VOLUME 84.6 fl (80.0-105.0); MEAN CORPUSCULAR HGB CONC 33.1 g/dl (31.0-37.0); MEAN PLATELET VOLUME 8.3 fl (7.0-11.0); MONO # 0.7 (0.1-0.6); RED CELL DISTRIBUTION WIDTH 16.1 % (11.5-14.5); WHITE BLOOD COUNT 10.3 10^3/ul (4.5-11.0)
[2017-04-12] MEDS: Iron Complex Polysacch 150mg Cap PO SCH (10:09)
--- NOTE | 2017-04-12 10:47 | PN ---
DATE: SUBJECTIVE: I saw Gato resting comfortably in bed. She has slept very well last night. She is in no distress. No complains to me. She is hungry. She is participating. MEDICATIONS: She is on Clozaril, Cogentin, Colace, Cozaar, Desyrel, Ecotrin, iron, Glucophage, Haldol, Maalox, milk of magnesia, Norvasc, Tylenol, Zetia, and Zoloft. PHYSICAL EXAMINATION: VITAL SIGNS: She has a 98.1 temperature, 81 pulse, 122/80 blood pressure, and 20 respiratory rate. HEENT: Head is atraumatic and normocephalic. HEART: Regular rate. LUNGS: Clear to auscultation. ABDOMEN: Soft, obese, and nontender. No guarding. No rebound. No CVA tenderness. EXTREMITIES: No edema. She is actually doing quite well. LABORATORY DATA: Last labs on the 04/12/2017, she has 10.3 white count, 11.1 hemoglobin, 33.5 hematocrit with 382 platelets. Last blood sugar was 168. ASSESSMENT AND PLAN: Overall, she tells me she is leaving today. We will see what Psychiatry says. I do think she has improved since she has gotten here for depression, bipolar, schizophrenia, suicidal ideation, diabetes, hypertension, and anemia. Jason Contreras DO
[2017-04-12 11:06] VITALS: BP 122/88
--- NOTE | 2017-04-12 14:50 | PCM.PYCHDC ---
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 denied psychotic symptoms, and pt does not appeared to be psychotic, denied been anxious, pt is not in imminent danger to self or others, will be following up at PACT team, information about follow up appointment, time and address provided to the pt, it is patient responsibility to follow up with outpatient clinic, PMD as well as specialists (see SW note for more detailed information). med list and most recent labs were faxed over to PACT team d/c plan was d/w PACT team, GUILLERMO Garibay, was in agreement with d/c plan In case pt will need to obtain results of studies pending at discharge pt was provided with contact information of Psychiatric Inpatient unit [phone] as well as Medical Record Department [phone]. pt will be continued on all of her meds, PACT team will provide pt with meds Haldol Dec due for April 14 Pt was educated about safety plan in case of worsening of symptoms or in case of suicidal or homicidal ideation call 911 or go to the nearest ER, also was educated to take meds as prescribed and stay away from drugs, pt verbalized understanding. - Diagnosis (1) Schizoaffective disorder, bipolar type Current Visit: No Status: Chronic Priority: Medium - Final Diagnosis (DSM 5) Condition upon Discharge: GOOD Disposition: HOME/ ROUTINE Follow-up Treatment Plan: At the time of the discharge pt denied been depressed, denied thoughts of harming self or others, denied psychotic symptoms, and pt does not appeared to be psychotic, denied been anxious, pt is not in imminent danger to self or others, will be following up at PACT team, information about follow up appointment, time and address provided to the pt, it is patient responsibility to follow up with outpatient clinic, PMD as well as specialists (see SW note for more detailed information). med list and most recent labs were faxed over to PACT team d/c plan was d/w PACT team, GUILLERMO Garibay, was in agreement with d/c plan In case pt will need to obtain results of studies pending at discharge pt was provided with contact information of Psychiatric Inpatient unit [phone] as well as Medical Record Department [phone]. pt will be continued on all of her meds, PACT team will provide pt with meds Haldol Dec due for April 14 Pt was educated about safety plan in case of worsening of symptoms or in case of suicidal or homicidal ideation call 911 or go to the nearest ER, also was educated to take meds as prescribed and stay away from drugs, pt verbalized understanding. Prescriptions/Medication Reconciliation: Sertraline HCl [Zoloft] 100 mg PO DAILY #14 tablet - Smoking Cessation Smoking Cessation Medication prescribed: No Reason for not providing: pt denied smoking - Antipsychotic Medications Pt discharged on 2 or more routine antipsychotic medications: Yes - Justification for 2 or more meds Failed 3 or more trials of Monotherapy: List medications: pt has residual schizophrenia. multiple state hospitalizations. pt needs to continue on two antipsycotic meds. d/w mother, PACT team
== END 2017-04-12 14:45 | disposition home or self-care (01) | DRG 885 ==
LOC: ED 09:20 → ERH 14:54 → PSYC 17:27
PROVIDERS: ADMIT Psychiatry & Neurology Psychiatry; ATTEND Psychiatry & Neurology Psychiatry
DX: F25.0 Schizoaffective disorder, bipolar type (principal); R45.851 Suicidal ideations; F22 Delusional disorders; E11.9 Type 2 diabetes mellitus without complications; D64.9 Anemia, unspecified; D72.829 Elevated white blood cell count, unspecified; E78.5 Hyperlipidemia, unspecified; F41.0 Panic disorder [episodic paroxysmal anxiety]; I10 Essential (primary) hypertension; F41.9 Anxiety disorder, unspecified; Z79.82 Long term (current) use of aspirin; Z79.84 Long term (current) use of oral hypoglycemic drugs; Z79.899 Other long term (current) drug therapy; Z86.69 Personal history of other diseases of the nervous system and sense organs

== ENCOUNTER 2017-05-30 05:21 | Inpatient (IN) | payer MEDICARE, MEDICAID ==
[2017-05-30 05:35] VITALS: BMI 29.3
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
[2017-05-30 06:26] LABS: BASO # 0.03 K/mm3 (0.0-2.0); BASO % 0.3 % (0.0-3.0); EOS # 0.1 (0.0-0.7); EOS % 1.1 % (1.5-5.0); GRAN # 6.24 (1.4-6.5); GRAN % 54.6 % (50.0-68.0); HEMOGLOBIN 12.1 g/dL (12.0-16.0); LYMPH # 4.5 (1.2-3.4); LYMPH % 39.5 % (22.0-35.0); MEAN CELL VOLUME 84.7 fl (80.0-105.0); MEAN CORPUSCULAR HEMOGLOBIN 28.4 pg (25.0-35.0); MEAN CORPUSCULAR HGB CONC 33.5 g/dl (31.0-37.0); MEAN PLATELET VOLUME 8.5 fl (7.0-11.0); MONO # 0.5 (0.1-0.6); MONO % 4.5 % (1.0-6.0); PLATELET COUNT 466 10^3/uL (120.0-450.0); RBC 4.26 10^6/uL (3.5-6.1); RED CELL DISTRIBUTION WIDTH 16.1 % (11.5-14.5); WHITE BLOOD COUNT 11.4 10^3/ul (4.5-11.0)
[2017-05-30 06:27] LABS: URINE BILIRUBIN NEGATIVE (NEGATIVE); URINE BLOOD NEGATIVE (NEGATIVE); URINE GLUCOSE (UA) NEGATIVE (NEGATIVE); URINE LEUKOCYTE ESTERASE NEGATIVE Leu/uL (NEGATIVE); URINE NITRATE NEGATIVE (NEGATIVE); URINE PROTEIN NEGATIVE mg/dL (<30 mg/dL); URINE UROBILINOGEN 0.2 E.U./dL (<1 E.U./dL)
[2017-05-30 06:35] LABS: URINE APPEARANCE CLEAR (CLEAR); URINE COLOR YELLOW (YELLOW)
[2017-05-30 06:37] LABS: ALB/GLOB RATIO 1.2 (1.1-1.8); ALBUMIN 4.3 g/dL (3.0-4.8); ALT/SGPT 31 U/L (7-56); AST/SGOT 23 U/L (14-36); BLOOD UREA NITROGEN 9 mg/dL (7-21); CALCIUM 9.5 mg/dL (8.4-10.5); GFR AFRICAN-AMERICAN > 60; GFR NON-AFRICAN AMERICAN > 60
[2017-05-30 06:47] LABS: BARBITURATES, UR NEGATIVE (NEGATIVE); BENZODIAZEPINES, UR NEGATIVE (NEGATIVE); OPIATES, UR NEGATIVE (NEGATIVE); PHENCYCLIDINE, UR NEGATIVE (NEGATIVE)
[2017-05-30 06:51] LABS: ACETAMINOPHEN < 10.0 ug/ml (10.0-20.0); SALICYLATE < 1 mg/dL (2.0-20.0)
--- NOTE | 2017-05-30 07:20 | ED PDOC ---
Physical Exam Vital Signs Reviewed: Yes Vital Signs Temp Pulse Resp BP Pulse Ox 05/30/17 08:00 98.1 F 104 H 18 123/83 98 05/30/17 05:35 98.2 F 108 H 16 144/86 100 Temperature: Afebrile Blood Pressure: Normal Pulse: Tachycardic Respiratory Rate: Normal Appearance: Positive for: Well-Appearing, Non-Toxic, Comfortable Pain Distress: None Mental Status: Positive for: Alert and Oriented X 3 - Systems Exam Head: Present: Atraumatic, Normocephalic Pupils: Present: PERRL Extroacular Muscles: Present: EOMI Conjunctiva: Present: Normal Mouth: Present: Moist Mucous Membranes Neck: Present: Normal Range of Motion Respiratory/Chest: Present: Clear to Auscultation, Good Air Exchange. No: Respiratory Distress, Accessory Muscle Use Cardiovascular: Present: Regular Rate and Rhythm, Normal S1, S2. No: Murmurs Abdomen: Present: Normal Bowel Sounds. No: Tenderness, Distention, Peritoneal Signs Back: Present: Normal Inspection Upper Extremity: Present: Other (upper extremity superficial lacerations near wrist. have been dressed with bacitracin applique and gauze bandages. ). No: Cyanosis, Edema Lower Extremity: Present: Normal Inspection. No: Edema Neurological: Present: GCS=15, CN II-XII Intact, Speech Normal Skin: Present: Warm, Dry, Normal Color. No: Rashes Psychiatric: Present: Alert, Oriented x 3, Normal Insight, Normal Concentration Medical Decision Making ED Course and Treatment: 05/30/17 07:19: Case endorsed to me by Dr. Glover. Pending admission. PROCEDURE: CHEST RADIOGRAPH, 1 VIEW Dictator : Jason Kowalski MD Report Date : 05/30/2017 08:16:56 IMPRESSION: No active disease. 05/30/17 10:22 pt is medically cleared for psychiatric evaluation. Pyshitric consulttaion apprecited. Pt to be admitted for stabization of schizophrenia w/ associated dysphoric features/ suicidal gesture. - Lab Interpretations Lab Results: 05/30/17 06:00 05/30/17 06:00 Lab Results 05/30/17 06:00: Urine HCG, Qual Negative 05/30/17 06:00: Alcohol, Quantitative < 10 05/30/17 06:00: Salicylates < 1 L, Acetaminophen < 10.0 L 05/30/17 06:00: Urine Opiates Screen Negative, Urine Methadone Screen Negative, Ur Barbiturates Screen Negative, Ur Phencyclidine Scrn Negative, Ur Amphetamines Screen Negative, U Benzodiazepines Scrn Negative, U Oth Cocaine Metabols Negative, U Cannabinoids Screen Negative 05/30/17 06:00: Sodium 139, Potassium 3.8, Chloride 102, Carbon Dioxide 22, Anion Gap 18, BUN 9, Creatinine 0.4 L, Est GFR ( Amer) > 60, Est GFR (Non -Af Amer) > 60, Random Glucose 192 H, Calcium 9.5, Total Bilirubin 0.2, AST 23, ALT 31, Alkaline Phosphatase 96, Total Protein 7.9, Albumin 4.3, Globulin 3.6, Albumin/Globulin Ratio 1.2 05/30/17 06:00: Urine Color Yellow, Urine Appearance Clear, Urine pH 6.0, Ur Specific Centre 1.020, Urine Protein Negative, Urine Glucose (UA) Negative, Urine Ketones Negative, Urine Blood Negative, Urine Nitrate Negative, Urine Bilirubin Negative, Urine Urobilinogen 0.2, Ur Leukocyte Esterase Negative 05/30/17 06:00: WBC 11.4 H, RBC 4.26, Hgb 12.1, Hct 36.1, MCV 84.7, MCH 28.4, MCHC 33.5, RDW 16.1 H, Plt Count 466 H, MPV 8.5, Gran % 54.6, Lymph % (Auto) 39.5 H, [place] % (Auto) 4.5, Eos % (Auto) 1.1 L, Baso % (Auto) 0.3, Gran # 6.24, Lymph # 4.5 H, [place] # 0.5, Eos # 0.1, Baso # 0.03 - RAD Interpretation Radiology Orders: 05/30/17 05:54 CHEST ONE VIEW [RAD] Stat - Scribe Statement The provider has reviewed the documentation as recorded by the Scribe Aundrea Clifford Provider Scribe Attestation: All medical record entries made by the Scribe were at my direction and personally dictated by me. I have reviewed the chart and agree that the record accurately reflects my personal performance of the history, physical exam, medical decision making, and the department course for this patient. I have also personally directed, reviewed, and agree with the discharge instructions and disposition. Disposition/Present on Arrival - Present on Arrival Any Indicators Present on Arrival: No History of DVT/PE: No History of Uncontrolled Diabetes: No Urinary Catheter: No History of Decub. Ulcer: No History Surgical Site Infection Following: None - Disposition Have Diagnosis and Disposition been Completed?: Yes Diagnosis: Schizophrenia, Suicidal behavior with attempted self-injury Disposition: HOSPITALIZED Disposition Time: 10:21 Patient Plan: Admission Patient Problems: Current Active Problems Problem Status Onset Schizophrenia Acute Condition: UNKNOWN Forms: [employer] ([place])
--- NOTE | 2017-05-30 08:18 | RAD ---
PROCEDURE: CHEST RADIOGRAPH, 1 VIEW HISTORY: psych eval COMPARISON: 04/02/2017 FINDINGS: LUNGS: Clear. PLEURA: No pneumothorax or pleural fluid seen. CARDIOVASCULAR: Normal. OSSEOUS STRUCTURES: No significant abnormalities. VISUALIZED UPPER ABDOMEN: Normal. OTHER FINDINGS: None. IMPRESSION: No active disease.
--- NOTE | 2017-05-30 10:44 | CARD ---
APPROVED REPORT EKG Measurement Heart [id number] <Conclusion> Normal sinus rhythm Minimal voltage criteria for LVH, may be normal variant Nonspecific T wave abnormality Abnormal ECG
[2017-05-30 12:02] LABS: EOSINOPHIL 3 % (0.0-3.0); LYMPHOCYTE 41 % (22.0-35.0); MONOCYTE 8 % (1.0-6.0); NEUTROPHIL 48 % (50.0-70.0)
[2017-05-30 12:03] LABS: ANISOCYTOSIS SLIGHT; PLATELET ESTIMATE NORMAL (NORMAL)
[2017-05-30 13:52] VITALS: O2SAT 99
[2017-05-30] MEDS ORDERED: Magnesium Hydroxide Susp 30 ml UD PO PRN (15:37)
[2017-05-30] MEDS ORDERED: Haloperidol Decanoate 100 mg/ml Inj IM ONE (15:45)
[2017-05-30] MEDS ORDERED: DiphenhydrAMINE 50 mg/ml Inj IM PRN (15:56)
--- NOTE | 2017-05-31 01:11 | PCM.BM ---
Treatment Plan Problems - Problems identified on initial assessmt DEPRESSION Date Initiated: 05/30/17 Time Initiated: 20:00 Assessment reference: NA Status: Active Treatment assets and liabiliti Patient Assests: adapts well, cooperative, educated, motivated, self-reliant, ADL independent, good support system, negotiates basic needs, financial stabiity , cognitively intact, good interpersonal skills
--- NOTE | 2017-05-31 01:22 | PCM.BM ---
<James Whitney - Last Filed: 05/31/17 01:22> Treatment Plan Problems - Problems identified on initial assessmt SUICIDAL IDEATION Date Initiated: 05/30/17 Time Initiated: 20:00 Assessment reference: NA Status: Active AUDITORY HALLUCINATION Date Initiated: 05/30/17 Time Initiated: 20:00 Assessment reference: NA Status: Active DEPRESSION Date Initiated: 05/30/17 Time Initiated: 20:00 Assessment reference: NA Status: Active Treatment assets and liabiliti Patient Assests: adapts well, cooperative, educated, motivated, self-reliant, ADL independent, good support system, negotiates basic needs, financial stabiity , cognitively intact, good interpersonal skills Patient Liabilities: live alone, financial problems, dietary restrictions, medical problems Family Contact Family involvement: Family/SO is involved Family contact: Patient agrees to contact Discharge/Continuing Care - Education Needs Education Needs: Patient Medication, Patient Diagnosis/Disease Process, Patient Coping Skills, Patient Placement options, Patient Community resources, Patient Uses of Medical Equipment, Patient Health Practices/Safety, Patient Personal Hygiene/Grooming, Patient Aftercare Safety Plan - Discharge Discharge Criteria: Tolerates medication w/o severe side effects, Free of Suicidal thoughts, Free of paranoid thoughts, Free of agitation, Normal sleep pattern, Ability to care for self <Lucila Capone - Last Filed: 05/31/17 14:42> Family Contact - Outside Agency [facility] Care involvment: Following patient during stay, Information-sharing Agency contact name: [facility] <Zonia José - Last Filed: 05/31/17 17:21> - Diagnosis (1) Schizoaffective disorder Status: Acute Interventions: 05/31/17 17:21 Psychoeducation/psychotherapy Psychopharmacology/adjustment of medications as needed/ monitoring possible side effects Evaluate pt on daily basis Compliance with medications and follow up appointments Long acting medication if pt is noncompliant with pill form Suicide and homicide risk assessment and prevention, coping strategies, safety plan Relapse prevention Reduction of symptoms Improve functional status Possible assertive community treatment Cognitive behavioral therapy Family involvement Possible social skill training as outpatient
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
--- NOTE | 2017-05-31 20:21 | CON ---
DATE: I was called to the psychiatric floor to take a look at Gato, and I know very well from multiple hospital visits. She presents to the emergency room with auditory hallucinations. She is very tired at this time with answering yes or no to questions, and the voices were telling to hurt herself. She took a knife and caused some superficial wounds to her arms. No visual hallucinations. At this time, she is comfortable, no complaints to me. She has hypertension, she has diabetes, anemia, depression, anxiety, schizophrenia, bipolar, substance abuse history. FAMILY HISTORY: Unknown family history. SOCIAL HISTORY: Former smoker. No alcohol. No drug. The patient previously had substance abuse history, but she says not now. ALLERGIES: NO KNOWN DRUG ALLERGIES. MEDICATIONS: She is on Haldol. REVIEW OF SYSTEMS: No acute vision or hearing changes. Some auditory hallucinations. No problems with breathing. No chest pain or shortness of breath. No abdominal pain. No problems with extremities. There is some suicidal ideation. She is depressed. She is a little bit upset about being back here. PHYSICAL EXAMINATION: VITAL SIGNS: She has 98.2 temperature, 108 pulse, 16 respiratory rate, 144/86 blood pressure, 100% O2 saturation on room air. GENERAL: A well appearing comfortable. Alert and oriented x3. HEENT: Her head is atraumatic and normocephalic. Extraocular muscles are intact. Throat is moist. NECK: Supple. HEART: Regular rate. LUNGS: Clear to auscultation. ABDOMEN: Soft, nontender. Positive bowel sounds. EXTREMITIES: There is superficial laceration noted to the thumb and the left wrist, self-inflicted, we will give some antibiotic cream for that to help with heal. LABORATORY DATA: She has some tests done. She has 11.4 white count, we will keep an eye on that. If it goes up, we might put her on antibiotics. Hemoglobin 12.1, hematocrit 36.1, platelets are 466. 139 sodium, potassium 3.8, BUN 9, creatinine 0.4, GFR is greater than 60, blood sugar is 140, calcium 9.5, total bilirubin is 0.2, AST is 23, ALT is 31, alkaline phosphatase is 96, total protein is 7.9, albumin is 4.3. Urine is clear. Negative . The toxicology screen was completely normal. MEDICATIONS: She is on Benadryl, Clozaril, Cogentin, Colace, Cozaar, Desyrel, Ecotrin, iron, Glucophage, Haldol, milk of magnesia, Norvasc, Zetia and Zoloft, also add some Bactroban ointment for the superficial skin issues. PLAN: We will check her lab tomorrow. Encourage her to participate in groups, take psychiatric medications. Hopefully, she should do very well. She is here with auditory hallucinations, self-inflicting her arms, schizophrenia, diabetes, anemia, hypertension. Jason Contreras DO
[2017-06-01 08:22] LABS: HEMOGLOBIN 11.4 g/dL (12.0-16.0); MEAN CELL VOLUME 84.9 fl (80.0-105.0); MEAN CORPUSCULAR HEMOGLOBIN 27.7 pg (25.0-35.0); MEAN CORPUSCULAR HGB CONC 32.7 g/dl (31.0-37.0); MEAN PLATELET VOLUME 8.2 fl (7.0-11.0); RBC 4.11 10^6/uL (3.5-6.1); WHITE BLOOD COUNT 10.1 10^3/ul (4.5-11.0)
[2017-06-01 09:17] LABS: ALB/GLOB RATIO 1.2 (1.1-1.8); ALBUMIN 3.9 g/dL (3.0-4.8); ALT/SGPT 29 U/L (7-56); AST/SGOT 23 U/L (14-36); BLOOD UREA NITROGEN 8 mg/dL (7-21); CALCIUM 9.1 mg/dL (8.4-10.5); GFR AFRICAN-AMERICAN > 60; GFR NON-AFRICAN AMERICAN > 60
--- NOTE | 2017-06-01 12:35 | PN ---
DATE: SUBJECTIVE: I saw Gato sitting out of bed to chair. She is actually doing much better. She is smiling. She is happy. She is in a good mood. No complaints. She is here for schizophrenia, auditory hallucinations, diabetes, anemia, hypertension. MEDICATIONS: She is on Bactroban cream, Benadryl, Clozaril, Cogentin, Colace, Cozaar, Desyrel, Ecotrin, Feosol, Glucophage, Haldol, milk of magnesia, Norvasc, Zetia and Zoloft. PHYSICAL EXAMINATION: VITAL SIGNS: 98.2 temperature, 86 pulse, blood pressure is high at 132/96, I have to adjust that, respiratory rate is 20. HEENT: Head: Atraumatic, normocephalic. HEART: Regular rate. LUNGS: Clear to auscultation. ABDOMEN: Soft. EXTREMITIES: No edema. LABORATORY DATA: She has a 10.1 white count better, 11.4 hemoglobin, 34.9 hematocrit with 419 platelets. 136 sodium, potassium 4, BUN is 8, creatinine 0.5, GFR is greater than 60, sugars 111, calcium 9.1, total bili is 0.3, AST is 23, ALT is 29, alk phos 90, total protein 7.2. Urine is clear. negative. Drug screen is negative. ASSESSMENT AND PLAN: She is being seen by Psychiatry. I am going to increase amlodipine to 10 mg for the elevated blood pressure. I am going to continue with aggressive treatment and care. Hopefully, she will participate in groups and do very well. Jason Contreras DO
--- NOTE | 2017-06-01 16:52 | PCM.PYCHPN ---
Psychiatric Progress Note - Psychiatric Progress Note Patient seen today, length of contact: 30min Patient Chief Complaint: "It is amazing how good I feel today ..." Problems Identified/Issues Discussed: Suicide/ homicide prevention, past psychiatric h/o, current psychiatric symptoms , medical problems, risk/benefits and alternatives of medications, medications compliance, coping strategies, substance abuse h/o, relapse prevention, importance of follow up with psychiatrist and therapist, discharge plan. Medical Problems: HTN, diabetis, dyslipidemia pt c/o gait abnormalities, and h/o falls PT was called neurology team called as per PACT team request Diagnostic Results: 06/01/17 08:00 06/01/17 08:00 Lab Results 06/01/17 11:40: POC Glucose (mg/dL) 98 06/01/17 08:00: Sodium 136, Potassium 4.0, Chloride 102, Carbon Dioxide 24, Anion Gap 15, BUN 8, Creatinine 0.5 L, Est GFR ( Amer) > 60, Est GFR (Non -Af Amer) > 60, Random Glucose 111 H, Calcium 9.1, Total Bilirubin 0.3, AST 23, ALT 29, Alkaline Phosphatase 90, Total Protein 7.2, Albumin 3.9, Globulin 3.2, Albumin/Globulin Ratio 1.2 06/01/17 08:00: WBC 10.1, RBC 4.11, Hgb 11.4 L, Hct 34.9 L, MCV 84.9, MCH 27.7, MCHC 32.7, RDW 16.0 H, Plt Count 419, MPV 8.2 06/01/17 07:25: POC Glucose (mg/dL) 116 H 05/31/17 22:01: POC Glucose (mg/dL) 92 05/31/17 16:39: POC Glucose (mg/dL) 93 05/31/17 12:00: POC Glucose (mg/dL) 112 H 05/31/17 07:43: POC Glucose (mg/dL) 140 H 05/30/17 23:06: POC Glucose (mg/dL) 103 05/30/17 16:16: POC Glucose (mg/dL) 147 H 05/30/17 06:00: Urine HCG, Qual Negative 05/30/17 06:00: Alcohol, Quantitative < 10 05/30/17 06:00: Salicylates < 1 L, Acetaminophen < 10.0 L 05/30/17 06:00: Urine Opiates Screen Negative, Urine Methadone Screen Negative, Ur Barbiturates Screen Negative, Ur Phencyclidine Scrn Negative, Ur Amphetamines Screen Negative, U Benzodiazepines Scrn Negative, U Oth Cocaine Metabols Negative, U Cannabinoids Screen Negative 05/30/17 06:00: Sodium 139, Potassium 3.8, Chloride 102, Carbon Dioxide 22, Anion Gap 18, BUN 9, Creatinine 0.4 L, Est GFR ( Amer) > 60, Est GFR (Non -Af Amer) > 60, Random Glucose 192 H, Calcium 9.5, Total Bilirubin 0.2, AST 23, ALT 31, Alkaline Phosphatase 96, Total Protein 7.9, Albumin 4.3, Globulin 3.6, Albumin/Globulin Ratio 1.2 05/30/17 06:00: Urine Color Yellow, Urine Appearance Clear, Urine pH 6.0, Ur Specific [place] 1.020, Urine Protein Negative, Urine Glucose (UA) Negative, Urine Ketones Negative, Urine Blood Negative, Urine Nitrate Negative, Urine Bilirubin Negative, Urine Urobilinogen 0.2, Ur Leukocyte Esterase Negative 05/30/17 06:00: WBC 11.4 H, RBC 4.26, Hgb 12.1, Hct 36.1, MCV 84.7, MCH 28.4, MCHC 33.5, RDW 16.1 H, Plt Count 466 H, MPV 8.5, Gran % 54.6, Lymph % (Auto) 39.5 H, [place] % (Auto) 4.5, Eos % (Auto) 1.1 L, Baso % (Auto) 0.3, Gran # 6.24, Lymph # 4.5 H, [place] # 0.5, Eos # 0.1, Baso # 0.03, Neutrophils % (Manual) 48 L, Lymphocytes % (Manual) 41 H, Monocytes % (Manual) 8 H, Eosinophils % (Manual) 3 , Differential Comment Cancelled, Platelet Evaluation Normal, Anisocytosis ( manual) Slight Vital Signs Temp Pulse Pulse Resp BP Pulse Ox 06/01/17 10:04 86 132/96 H 06/01/17 07:39 98.2 F 86 20 132/96 H 05/31/17 16:12 94 H 127/89 05/31/17 09:06 82 130/95 H 05/31/17 07:40 98.0 F 82 20 130/95 H 05/30/17 18:12 100 H 17 05/30/17 13:51 98.9 F 72 16 132/74 99 05/30/17 08:00 98.1 F 104 H 18 123/83 98 05/30/17 05:35 98.2 F 108 H 16 144/86 100 DSM 5 Symptoms Update: deng patient is 41 years old -[place] female, long and debilitating history of schizophrenia vs schizoaffective, treatment resistant, multiple admissions to the psychiatric inpatient unit in the past, including to this hospital, pt was d/c from [facility] April 28, less than a month ago, patient is followed by [facility] PACT team, pt is on clozaril and Haldol Dec. pt brought herself to the hospital looking for psychiatric admission for worsening of psychosis, self mutilating behavior, pt was not able to contract for safety in ED. Lisa PRICE at [facility] evaluated pt in ED yesterday, pt was found to be "not at her baseline", pt was agitated at ED, pt needs further evaluation and stabilization. meds confirmed, resumed, record reviewed, discussed with Lani LI at [facility] PACT team. Haldol Dec was given 05/30/17, tolerated it well. pt was seen next to the nursing station, superficial, said "you cannot even imagine how good I feel today". pt has weird look, wig pulled down on her forehead. no behavioral issues. but pt disorganized and psychotic. pt tolerated meds well, no side effects observed or reported, Impression: schizoaffective disorder, bipolar type Medication Change: No Medical Record Reviewed: Yes Consults ordered or reviewed: medical team and PT neuro called Mental Status Examination - Cognitive Function Orientation: Person, Place Memory: Impaired Attention: Poor Concentration: Poor Association: Loose Fund of Knowledge: Poor - Mood Mood: Depressed - Affect Affect: Flat - Formal Thought Process Formal Thought Process: Hallucinations, Delusions, Paranoia, Loosening of associations, Other (poverty of thoughts and speech) - Suicidal Ideation Suicidal Ideation: No - Homicidal Ideation Homicidal Ideation: No Goal/Treatment Plan - Goal/Treatment Plan Need for Continued Stay: Remain at risks for inpatient hospitalization, Severe depression anxiety, Discharge may exacerbated symptoms, Severe functional impairment Progress Toward Problem(s) and Goals/Treatment Plan: milieu, structure, supportive therapy medications were confirmed by patient treatment team 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 Injectable Haldol 100mg q monthly Injection due was yesterday 05/30/17 cogentin 1mg po bid for EPS Aspirin [Ecotrin] 81 mg PO DAILY Docusate [Colace] 100 mg PO BID Ezetimibe [Zetia] 10 mg PO DAILY Iron Polysaccharide [Ferrex-150] 150 mg PO DAILY Losartan [Cozaar] 100 mg PO DAILY MetFORMIN [glucoPHAGE] 1,000 mg PO BID will increase Zoloft to 100 mg PO DAILY amLODIPine [Norvasc] 10 mg PO DAILY Medical consult was called Collateral information appreciated We'll monitor closely PACT team contacted, pt presented to be agitated, not at her baseline as per PACT team pt had h/o falls will call PT eval and Neurology eval SW evaluation will monitor Gran#, pt is on monthly monitoring of Gran# Estimated Date of D/C: 06/08/17
--- NOTE | 2017-06-02 14:12 | CT ---
PROCEDURE: CT HEAD WITHOUT CONTRAST. HISTORY: frequent falls COMPARISON: None available. TECHNIQUE: Axial computed tomography images were obtained through the head/brain without intravenous contrast. Radiation dose: Total exam DLP = 904.07 mGy-cm. This CT exam was performed using one or more of the following dose reduction techniques: Automated exposure control, adjustment of the mA and/or kV according to patient size, and/or use of iterative reconstruction technique. FINDINGS: HEMORRHAGE: No intracranial hemorrhage. BRAIN: There are mild chronic microangiopathic changes. There is no mass, mass effect or abnormal extra-axial fluid collection. There are faint bilateral basal ganglia calcifications. VENTRICLES: There is mild global parenchymal volume loss and proportionate enlargement of the ventricles and cortical sulci, advanced for the patient's age. CALVARIUM: There is no calvarial fracture or extracranial soft tissue swelling. PARANASAL SINUSES: Predominantly clear. MASTOID AIR CELLS: Predominantly clear. OTHER FINDINGS: None. IMPRESSION: No acute intracranial abnormality. Mild chronic microangiopathic changes. Mild global parenchymal volume loss, advanced for the patient's age.
--- NOTE | 2017-06-02 16:00 | PCM.PYCHPN ---
Psychiatric Progress Note - Psychiatric Progress Note Patient seen today, length of contact: 30min Patient Chief Complaint: "I am doing just fine..." Problems Identified/Issues Discussed: Suicide/ homicide prevention, past psychiatric h/o, current psychiatric symptoms , medical problems, risk/benefits and alternatives of medications, medications compliance, coping strategies, substance abuse h/o, relapse prevention, importance of follow up with psychiatrist and therapist, discharge plan. Medical Problems: HTN, diabetis, dyslipidemia pt c/o gait abnormalities, and h/o falls PT was called, pt is not a candidate for skilled facility neurology team called as per PACT team request Diagnostic Results: 06/01/17 08:00 06/01/17 08:00 Lab Results 06/01/17 11:40: POC Glucose (mg/dL) 98 06/01/17 08:00: Sodium 136, Potassium 4.0, Chloride 102, Carbon Dioxide 24, Anion Gap 15, BUN 8, Creatinine 0.5 L, Est GFR ( Amer) > 60, Est GFR (Non -Af Amer) > 60, Random Glucose 111 H, Calcium 9.1, Total Bilirubin 0.3, AST 23, ALT 29, Alkaline Phosphatase 90, Total Protein 7.2, Albumin 3.9, Globulin 3.2, Albumin/Globulin Ratio 1.2 06/01/17 08:00: WBC 10.1, RBC 4.11, Hgb 11.4 L, Hct 34.9 L, MCV 84.9, MCH 27.7, MCHC 32.7, RDW 16.0 H, Plt Count 419, MPV 8.2 06/01/17 07:25: POC Glucose (mg/dL) 116 H 05/31/17 22:01: POC Glucose (mg/dL) 92 05/31/17 16:39: POC Glucose (mg/dL) 93 05/31/17 12:00: POC Glucose (mg/dL) 112 H 05/31/17 07:43: POC Glucose (mg/dL) 140 H 05/30/17 23:06: POC Glucose (mg/dL) 103 05/30/17 16:16: POC Glucose (mg/dL) 147 H 05/30/17 06:00: Urine HCG, Qual Negative 05/30/17 06:00: Alcohol, Quantitative < 10 05/30/17 06:00: Salicylates < 1 L, Acetaminophen < 10.0 L 05/30/17 06:00: Urine Opiates Screen Negative, Urine Methadone Screen Negative, Ur Barbiturates Screen Negative, Ur Phencyclidine Scrn Negative, Ur Amphetamines Screen Negative, U Benzodiazepines Scrn Negative, U Oth Cocaine Metabols Negative, U Cannabinoids Screen Negative 05/30/17 06:00: Sodium 139, Potassium 3.8, Chloride 102, Carbon Dioxide 22, Anion Gap 18, BUN 9, Creatinine 0.4 L, Est GFR ( Amer) > 60, Est GFR (Non -Af Amer) > 60, Random Glucose 192 H, Calcium 9.5, Total Bilirubin 0.2, AST 23, ALT 31, Alkaline Phosphatase 96, Total Protein 7.9, Albumin 4.3, Globulin 3.6, Albumin/Globulin Ratio 1.2 05/30/17 06:00: Urine Color Yellow, Urine Appearance Clear, Urine pH 6.0, Ur Specific Gipsy 1.020, Urine Protein Negative, Urine Glucose (UA) Negative, Urine Ketones Negative, Urine Blood Negative, Urine Nitrate Negative, Urine Bilirubin Negative, Urine Urobilinogen 0.2, Ur Leukocyte Esterase Negative 05/30/17 06:00: WBC 11.4 H, RBC 4.26, Hgb 12.1, Hct 36.1, MCV 84.7, MCH 28.4, MCHC 33.5, RDW 16.1 H, Plt Count 466 H, MPV 8.5, Gran % 54.6, Lymph % (Auto) 39.5 H, Heard % (Auto) 4.5, Eos % (Auto) 1.1 L, Baso % (Auto) 0.3, Gran # 6.24, Lymph # 4.5 H, Heard # 0.5, Eos # 0.1, Baso # 0.03, Neutrophils % (Manual) 48 L, Lymphocytes % (Manual) 41 H, Monocytes % (Manual) 8 H, Eosinophils % (Manual) 3 , Differential Comment Cancelled, Platelet Evaluation Normal, Anisocytosis ( manual) Slight Vital Signs Temp Pulse Pulse Resp BP Pulse Ox 06/01/17 10:04 86 132/96 H 06/01/17 07:39 98.2 F 86 20 132/96 H 05/31/17 16:12 94 H 127/89 05/31/17 09:06 82 130/95 H 05/31/17 07:40 98.0 F 82 20 130/95 H 05/30/17 18:12 100 H 17 05/30/17 13:51 98.9 F 72 16 132/74 99 05/30/17 08:00 98.1 F 104 H 18 123/83 98 05/30/17 05:35 98.2 F 108 H 16 144/[address] of the head 12/31/17 global parenchimal volume loss advanced for her age. DSM 5 Symptoms Update: deng patient is 41 years old -Serbian female, long and debilitating history of schizophrenia vs schizoaffective, treatment resistant, multiple admissions to the psychiatric inpatient unit in the past, including to this hospital, pt was d/c from [facility] April 28, less than a month ago, patient is followed by [facility] PACT team, pt is on clozaril and Haldol Dec. pt brought herself to the hospital looking for psychiatric admission for worsening of psychosis, self mutilating behavior, pt was not able to contract for safety in ED. Lisa PRICE at [facility] evaluated pt in ED yesterday, pt was found to be "not at her baseline", pt was agitated at ED, pt needs further evaluation and stabilization. meds confirmed, resumed, record reviewed, discussed with Lani LI at [facility] PACT team. Haldol Dec was given 05/30/17, tolerated it well. pt was seen today in her room, pt was refusing PT, said that she feels dizzy, pt still delusional, very superficial, pt said that she is (delusions), pt keep drawing , which looks like cartoon hero, preoccupied with "living happily ever after". pt has weird look, wig pulled down on her forehead, withdrawn, apathetic.. no behavioral issues. pt tolerated meds well, no side effects observed or reported, Impression: schizoaffective disorder, bipolar type Medication Change: No Medical Record Reviewed: Yes Consults ordered or reviewed: medical team and PT neuro called Mental Status Examination - Cognitive Function Orientation: Person, Place Memory: Impaired Attention: Poor Concentration: Poor Association: Loose Fund of Knowledge: Poor - Mood Mood: Depressed - Affect Affect: Flat - Formal Thought Process Formal Thought Process: Hallucinations, Delusions, Paranoia, Loosening of associations, Other (poverty of thoughts and speech) - Suicidal Ideation Suicidal Ideation: No - Homicidal Ideation Homicidal Ideation: No Goal/Treatment Plan - Goal/Treatment Plan Need for Continued Stay: Remain at risks for inpatient hospitalization, Severe depression anxiety, Discharge may exacerbated symptoms, Severe functional impairment Progress Toward Problem(s) and Goals/Treatment Plan: milieu, structure, supportive therapy medications were confirmed by patient treatment team 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 Injectable Haldol 100mg q monthly Injection due was 05/30/17 cogentin 1mg po bid for EPS Aspirin [Ecotrin] 81 mg PO DAILY Docusate [Colace] 100 mg PO BID Ezetimibe [Zetia] 10 mg PO DAILY Iron Polysaccharide [Ferrex-150] 150 mg PO DAILY Losartan [Cozaar] 100 mg PO DAILY MetFORMIN [glucoPHAGE] 1,000 mg PO BID will increase Zoloft to 100 mg PO DAILY amLODIPine [Norvasc] 10 mg PO DAILY Medical consult was called Collateral information appreciated We'll monitor closely as per PACT team pt had h/o falls PT eval appreciated Neuro eval is pending SW evaluation will monitor Gran#, pt is on monthly monitoring of Gran#, submitted at [facility] on 05/30/17 Estimated Date of D/C: 06/08/17
--- NOTE | 2017-06-02 16:13 | PN ---
DATE: 06/02/2017 SUBJECTIVE: I saw Gato resting comfortably in bed. She was sleeping more this morning. She is in good spirits. She is trying to get better. She is on Bactroban ointment, Benadryl, Clozaril, Cogentin, Colace, Cozaar, Desyrel, Ecotrin, Feosol, Glucophage, Haldol, milk of magnesia, Norvasc, Zetia, and Zoloft. PHYSICAL EXAMINATION: VITAL SIGNS: Temperature 98.2, 86 pulse, 117/79 blood pressure, and 20 respiratory rate. HEENT: Head is atraumatic, normocephalic. HEART: Regular rate. LUNGS: Clear to auscultation. ABDOMEN: Soft. EXTREMITIES: No edema. LABORATORY DATA: She has 10.1 white count better, 11.4 hemoglobin, and 34.9 hematocrit with 419 platelets. Sodium 136, 4 potassium, BUN 8, creatinine 0.5, GFR is greater than 60, last blood sugar was 103, calcium is 9.1, total bilirubin is 0.3, AST is 23, ALT is 29, alkaline phosphatase is 90, and total protein is 7.2. Urine is clear. is clear. Toxicology is clear. PLAN: As per Psychiatry, I encouraged her to continue with groups, take the medications she started feel better. She is here for schizophrenia, auditory hallucinations, diabetes, anemia, and hypertension. We will follow. Jason Contreras DO MTDSantos
--- NOTE | 2017-06-02 20:02 | CP.PCM.CON ---
History of Present Illness - History of Present Illness History of Present Illness: Mrs. Garces is a 41-year-old woman with a past medical history of schizophrenia that is refractory to treatment and multiple inpatient admissions, who states that she has been having frequent falls. She does not believe she ever lost consciousness. She is not certain if she becomes dizzy. She was a poor historian. Review of Systems - Review of Systems Systems not reviewed;Unavailable: Altered Mental Status Past Patient History - Infectious Disease Hx of Infectious Diseases: None - Tetanus Immunizations Tetanus Immunization: Unknown - Past Medical History & Family History Past Medical History?: No - Past Social History Smoking Status: Former Smoker - CARDIAC Hx Cardiac Disorders: No Hx Hypertension: Yes - PULMONARY Hx Tuberculosis: No - NEUROLOGICAL HX Cerebrovascular Accident: No Hx Seizures: Yes - HEENT Hx HEENT Problems: No - RENAL Hx Chronic Kidney Disease: No - ENDOCRINE/METABOLIC Hx Endocrine Disorders: Yes Hx Diabetes Mellitus Type 2: Yes - HEMATOLOGICAL/ONCOLOGICAL Hx Cancer: No Hx Human Immunodeficiency Virus (HIV): No - INTEGUMENTARY Hx Dermatological Problems: No - MUSCULOSKELETAL/RHEUMATOLOGICAL Hx Musculoskeletal Disorders: No - GASTROINTESTINAL Hx Gastrointestinal Disorders: No - GENITOURINARY/GYNECOLOGICAL Hx Sexually Transmitted Disorders: No - PSYCHIATRIC Hx Substance Use: No - SURGICAL HISTORY Hx Surgeries: No - ANESTHESIA Hx Anesthesia: No Meds Allergies/Adverse Reactions: Allergies Allergy/AdvReac Type Severity Reaction Status Date / Time No Known Allergies Allergy Verified 05/30/17 18:49 - Medications Medications: Current Medications Amlodipine Besylate (Norvasc) 10 mg PO DAILY [facility] Last Admin: 06/02/17 09:09 Dose: 10 mg Aspirin (Ecotrin) 81 mg PO DAILY [facility] Last Admin: 06/02/17 09:09 Dose: 81 mg Benztropine Mesylate (Cogentin) 1 mg PO BID [facility] Last Admin: 06/02/17 16:34 Dose: 1 mg Clozapine (Clozaril) 400 mg PO HS [facility] PRN Reason: Protocol Last Admin: 06/01/17 21:31 Dose: 400 mg Clozapine (Clozaril) 200 mg PO DAILY [facility] Last Admin: 06/02/17 09:11 Dose: 200 mg Clozapine (Clozaril) 50 mg PO DAILY [facility] Last Admin: 06/02/17 09:11 Dose: 50 mg Diphenhydramine HCl (Benadryl) 50 mg IM Q6H PRN PRN Reason: Allergy symptoms Docusate Sodium (Colace) 100 mg PO DAILY [facility] Last Admin: 06/02/17 09:10 Dose: 100 mg Ezetimibe (Zetia) 10 mg PO DAILY [facility] Last Admin: 06/02/17 09:10 Dose: 10 mg Ferrous Sulfate (Feosol) 324 mg PO DAILY [facility] Last Admin: 06/02/17 09:09 Dose: 324 mg Haloperidol (Haldol) 5 mg PO BID [facility] PRN Reason: Protocol Last Admin: 06/02/17 16:34 Dose: 5 mg Haloperidol Lactate (Haldol) 5 mg IM Q6 PRN; Protocol PRN Reason: Agitation Losartan Potassium (Cozaar) 100 mg PO DAILY [facility] Last Admin: 06/02/17 09:10 Dose: 100 mg Magnesium Hydroxide (Milk Of Magnesia) 30 ml PO DAILY PRN PRN Reason: Constipation Metformin HCl (Glucophage) 1,000 mg PO BID [facility] Last Admin: 06/02/17 16:34 Dose: 1,000 mg Mupirocin (Bactroban Ointment) 0 gm TOP BID [facility] Last Admin: 06/02/17 16:33 Dose: 1 oin Sertraline HCl (Zoloft) 100 mg PO DAILY [facility] Last Admin: 06/02/17 09:11 Dose: 100 mg Trazodone HCl (Desyrel) 50 mg PO HS PRN PRN Reason: Insomnia Physical Exam - Neurological Exam Neurological exam: Alert, CN II-XII Intact, Normal Gait, Oriented x3, Reflexes Normal Results - Vital Signs Recent Vital Signs: Last Vital Signs Temp 98.2 F 06/01/17 07:39 Pulse 104 H 06/01/17 16:00 Resp 20 06/01/17 07:39 BP 117/79 06/02/17 09:09 Pulse Ox 99 05/30/17 13:51 - Labs Result Diagrams: 06/01/17 08:00 06/01/17 08:00 Labs: Laboratory Results - last 24 hr 06/01/17 06/02/17 06/02/17 21:35 07:16 11:39 POC Glucose (mg/dL) 119 H 103 125 H 06/02/17 15:59 POC Glucose (mg/dL) 195 H - Imaging and Cardiology CT scan - head Status: Image reviewed by me, Report reviewed by me (Atrophy that is advanced for patient's age.) Assessment & Plan (1) Falls frequently Assessment and Plan: It is difficult to determine the nature of the falls due to the patient being a poor historian. CT scan of the head is essentially normal. We may consider further work-up if one of these episodes is witnessed and more information can be obtained. No further recommendations at this time. Status: Chronic Priority: Medium
--- NOTE | 2017-06-03 09:03 | PCM.PYCHPN ---
Psychiatric Progress Note - Psychiatric Progress Note Patient seen today, length of contact: 25 min Patient Chief Complaint: "better" Problems Identified/Issues Discussed: I reviewed assessment and recent notes. I met with patient at bedside. She is known to me from numerous prior admissions on the unit. Patient is oriented x3 and superficially cooperative. Reports that she is feeling "better" and that she is sleeping well. She denies recurrence of hallucinations or suicidal thoughts. Patient doesn't appear to be actively responding to internal stimuli though she appears internally preoccupied and oddly related. She is not overtly bizarre during my visit. specific delusions were not elicited during this visit though unit progress notes indicate that patient is still delusional about relationship with "Mr. Alvarez". As usual, patient has been cooperative and polite on the unit. Visible In community areas. Appears apathetic.There were no major behavioral issues overnight. Diagnostic Results: Schizoaffective disorder, bipolar type Medication Change: No Medical Record Reviewed: Yes Mental Status Examination - Cognitive Function Orientation: Person, Place Memory: Impaired Attention: Poor Concentration: Poor Association: Loose Fund of Knowledge: Poor - Mood Mood: Depressed (better) - Affect Affect: Flat - Formal Thought Process Formal Thought Process: Hallucinations (denies), Delusions (persist), Paranoia, Loosening of associations, Other (poverty of thoughts and speech) - Suicidal Ideation Suicidal Ideation: No - Homicidal Ideation Homicidal Ideation: No Goal/Treatment Plan - Goal/Treatment Plan Need for Continued Stay: Remain at risks for inpatient hospitalization, Severe depression anxiety, Discharge may exacerbated symptoms, Severe functional impairment Progress Toward Problem(s) and Goals/Treatment Plan: * c/w current tx and plan * No new weekend labs thus far * Vitals reviewed and noted below: Selected Entries 06/01/17 06/01/17 06/01/17 07:39 10:04 16:00 Temperature 98.2 F Pulse Rate 86 86 104 H Respiratory 20 Rate Blood Pressure 132/96 H 132/96 H 126/84 06/02/17 09:09 Temperature Pulse Rate Respiratory Rate Blood Pressure 117/79 Estimated Date of D/C: 06/08/17
--- NOTE | 2017-06-03 13:47 | PN ---
DATE: SUBJECTIVE: I saw Ms. Hoskins, she was walking the hallway. She is smiling and happy. She is eating breakfast. She is participating. She is in good spirits. She is on Bactroban ointment, Benadryl, Clozaril, Cogentin, Colace, Cozaar, Desyrel, Ecotrin, Feosol, Glucophage, Haldol, milk of magnesia, Norvasc, Zetia, and Zoloft. PHYSICAL EXAMINATION: VITAL SIGNS: 98.2 temperature, 84 pulse, 113/79 blood pressure, and 20 respiratory rate. HEENT: Head is atraumatic, normocephalic. HEART: Regular rate. LUNGS: Clear to auscultation. ABDOMEN: Soft. EXTREMITIES: No edema. LABORATORY DATA: Last labs on , white count is 10, hemoglobin is 7.4, platelets 419. Last blood sugar was 122. Otherwise, SMA-20 was very well. Urine was clean. Not . Negative toxicology. ASSESSMENT AND PLAN: She is being seen by Psychiatry and Neurology. She had a head CAT scan, no acute intracranial abnormality, mild chronic microangiopathic changes, mild global parenchymal volume loss, advance for the patient's age. She was seen by Neurology and the comment is because of her falls, CAT scan is normal and I felt they had to add. We will continue with aggressive treatment and care. Hopefully, she will not fall anymore. We will follow. Jason Contreras DO MTDD
--- NOTE | 2017-06-04 08:58 | PCM.PYCHPN ---
Psychiatric Progress Note - Psychiatric Progress Note Patient seen today, length of contact: 25 min Patient Chief Complaint: "better" Problems Identified/Issues Discussed: I reviewed recent notes and met with patient at bedside. Patient is oriented x3 and superficially cooperative. Reports that she is feeling "better" and that she is sleeping well. She denies recurrence of hallucinations or suicidal thoughts. Patient doesn't appear to be actively responding to internal stimuli though she appears oddly related. She is not overtly bizarre during my visit. Specific delusions were not elicited during this visit though progress notes indicate that patient is still delusional about relationship with "Mr. Alvarez ". As usual, patient has been cooperative and polite on the unit. Visible In community areas. Appearing brighter this weekend. Staff noted patient responding to internal stimuli and dancing to flute music in her head. There were no major behavioral issues over the weekend. Diagnostic Results: Schizoaffective disorder, bipolar type Medication Change: No Medical Record Reviewed: Yes Mental Status Examination - Cognitive Function Orientation: Person, Place Memory: Impaired Attention: Poor Concentration: Poor Association: Loose Fund of Knowledge: Poor - Mood Mood: Depressed (better) - Affect Affect: Flat - Formal Thought Process Formal Thought Process: Hallucinations (denies), Delusions (persist), Paranoia, Loosening of associations, Other (poverty of thoughts and speech) - Suicidal Ideation Suicidal Ideation: No - Homicidal Ideation Homicidal Ideation: No Goal/Treatment Plan - Goal/Treatment Plan Need for Continued Stay: Remain at risks for inpatient hospitalization, Severe depression anxiety, Discharge may exacerbated symptoms, Severe functional impairment Progress Toward Problem(s) and Goals/Treatment Plan: * c/w current tx and plan * Appreciate f/u by Dr. Contreras on 06/03/17 * No new weekend labs * Vitals reviewed and noted below: 06/03/17 06/03/17 06/03/17 07:16 09:19 16:00 Temperature 98.2 F Pulse Rate 84 105 H Respiratory 20 Rate Blood Pressure 113/79 113/79 116/81 Estimated Date of D/C: 06/08/17
--- NOTE | 2017-06-05 08:27 | PN ---
SUBJECTIVE: I saw Gato resting comfortably in bed. She is doing quite well. She is improving. She is eating. She is feeling better mentally. She is on Bactroban, Benadryl, Clozaril, Cogentin, Colace, Cozaar, Desyrel, Ecotrin, Feosol, Glucophage, Haldol, milk of magnesia, Norvasc, Zetia and Zoloft. PHYSICAL EXAMINATION: VITAL SIGNS: 98.2 temperature, 84 pulse, 113/79 blood pressure, and 20 respiratory rate. HEENT: Head is atraumatic and normocephalic. HEART: Regular rate. LUNGS: Clear to auscultation. ABDOMEN: Soft. EXTREMITIES: No edema. GENERAL: She is smiling. She is happy. She is improving. We will continue with aggressive treatment and care. LABORATORY DATA: She has 10.1 white count better, 11.4 hemoglobin and 419 platelets. Last blood sugar was 132, all the blood sugars are all have been pretty good, potassium 4.1, sodium 136, BUN is 8, creatinine 0.5, GFR is greater than 60, sugars 111, calcium is 9.1, total bilirubin is 0.3, AST is 23, ALT is 29 and alkaline phosphatase is 90. ASSESSMENT AND PLAN: So, I encourage her to participate in Psychiatric groups and treatment and she knows to call me if she finds any medical issues going on. She is here for schizophrenia, auditory hallucinations, diabetes which is good, anemia which is good, hypertension and Jason Contreras DO MTDD
[2017-06-05 08:32] LABS: BASO # 0.04 K/mm3 (0.0-2.0); BASO % 0.3 % (0.0-3.0); EOS # 0.1 (0.0-0.7); EOS % 1.1 % (1.5-5.0); GRAN # 7.43 (1.4-6.5); GRAN % 63.2 % (50.0-68.0); HEMOGLOBIN 11.4 g/dL (12.0-16.0); LYMPH # 3.4 (1.2-3.4); LYMPH % 28.6 % (22.0-35.0); MEAN CELL VOLUME 85.5 fl (80.0-105.0); MEAN CORPUSCULAR HGB CONC 32.8 g/dl (31.0-37.0); MEAN PLATELET VOLUME 8.3 fl (7.0-11.0); MONO # 0.8 (0.1-0.6); MONO % 6.8 % (1.0-6.0); RBC 4.07 10^6/uL (3.5-6.1); RED CELL DISTRIBUTION WIDTH 16.1 % (11.5-14.5); WHITE BLOOD COUNT 11.8 10^3/ul (4.5-11.0)
--- NOTE | 2017-06-05 13:34 | PN ---
DATE: 06/05/2017 SUBJECTIVE: I saw her resting this morning in bed. She is very comfortable. She has no complaints. She slept well. She has taken the medication. She is in groups. She tells me she is feeling better. MEDICATIONS: She is on Bactroban ointment, Benadryl, Clozaril, Cogentin, Colace, Cozaar, Desyrel, Ecotrin, Feosol, Glucophage, Haldol, milk of magnesia, Norvasc, Zetia, and Zoloft. PHYSICAL EXAMINATION: VITAL SIGNS: She has 98.5 temperature, 88 pulse, 124/84 blood pressure, 18 respiratory rate, and 99% O2 saturations on room air. HEENT: Head is atraumatic, normocephalic. HEART: Regular rate. LUNGS: Clear to auscultation. ABDOMEN: Soft and nontender. Positive bowel sounds. EXTREMITIES: No edema. LABORATORY DATA: She has 11.8 white count, 11.4 hemoglobin, and 34.8 hematocrit with 380 platelets, I am not sure why the white count is a little bit elevated. She has good SMA-20, last blood sugar was 112. Urine was clean. was negative. Toxicology was normal. ASSESSMENT AND PLAN: I will check another CBC tomorrow and chemistry. Follow her borderline white count. No other symptoms. No coughing. No congestion. No sore throat. No urinary tract problems. We will keep an keep an eye on her and see we could find a source for this borderline elevated white count. Jason Contreras DO MTDS[facility]os
--- NOTE | 2017-06-05 17:02 | PCM.PYCHPN ---
Psychiatric Progress Note - Psychiatric Progress Note Patient seen today, length of contact: 30min Patient Chief Complaint: "I am doing just fine..., just napping..." Problems Identified/Issues Discussed: Suicide/ homicide prevention, past psychiatric h/o, current psychiatric symptoms , medical problems, risk/benefits and alternatives of medications, medications compliance, coping strategies, substance abuse h/o, relapse prevention, importance of follow up with psychiatrist and therapist, discharge plan. Medical Problems: HTN, diabetis, dyslipidemia pt c/o gait abnormalities, and h/o falls PT was called, pt is not a candidate for skilled facility neurology team called as per PACT team request Diagnostic Results: 06/01/17 08:00 06/01/17 08:00 Lab Results 06/01/17 11:40: POC Glucose (mg/dL) 98 06/01/17 08:00: Sodium 136, Potassium 4.0, Chloride 102, Carbon Dioxide 24, Anion Gap 15, BUN 8, Creatinine 0.5 L, Est GFR ( Amer) > 60, Est GFR (Non -Af Amer) > 60, Random Glucose 111 H, Calcium 9.1, Total Bilirubin 0.3, AST 23, ALT 29, Alkaline Phosphatase 90, Total Protein 7.2, Albumin 3.9, Globulin 3.2, Albumin/Globulin Ratio 1.2 06/01/17 08:00: WBC 10.1, RBC 4.11, Hgb 11.4 L, Hct 34.9 L, MCV 84.9, MCH 27.7, MCHC 32.7, RDW 16.0 H, Plt Count 419, MPV 8.2 06/01/17 07:25: POC Glucose (mg/dL) 116 H 05/31/17 22:01: POC Glucose (mg/dL) 92 05/31/17 16:39: POC Glucose (mg/dL) 93 05/31/17 12:00: POC Glucose (mg/dL) 112 H 05/31/17 07:43: POC Glucose (mg/dL) 140 H 05/30/17 23:06: POC Glucose (mg/dL) 103 05/30/17 16:16: POC Glucose (mg/dL) 147 H 05/30/17 06:00: Urine HCG, Qual Negative 05/30/17 06:00: Alcohol, Quantitative < 10 05/30/17 06:00: Salicylates < 1 L, Acetaminophen < 10.0 L 05/30/17 06:00: Urine Opiates Screen Negative, Urine Methadone Screen Negative, Ur Barbiturates Screen Negative, Ur Phencyclidine Scrn Negative, Ur Amphetamines Screen Negative, U Benzodiazepines Scrn Negative, U Oth Cocaine Metabols Negative, U Cannabinoids Screen Negative 05/30/17 06:00: Sodium 139, Potassium 3.8, Chloride 102, Carbon Dioxide 22, Anion Gap 18, BUN 9, Creatinine 0.4 L, Est GFR ( Amer) > 60, Est GFR (Non -Af Amer) > 60, Random Glucose 192 H, Calcium 9.5, Total Bilirubin 0.2, AST 23, ALT 31, Alkaline Phosphatase 96, Total Protein 7.9, Albumin 4.3, Globulin 3.6, Albumin/Globulin Ratio 1.2 05/30/17 06:00: Urine Color Yellow, Urine Appearance Clear, Urine pH 6.0, Ur Specific [place] 1.020, Urine Protein Negative, Urine Glucose (UA) Negative, Urine Ketones Negative, Urine Blood Negative, Urine Nitrate Negative, Urine Bilirubin Negative, Urine Urobilinogen 0.2, Ur Leukocyte Esterase Negative 05/30/17 06:00: WBC 11.4 H, RBC 4.26, Hgb 12.1, Hct 36.1, MCV 84.7, MCH 28.4, MCHC 33.5, RDW 16.1 H, Plt Count 466 H, MPV 8.5, Gran % 54.6, Lymph % (Auto) 39.5 H, [place] % (Auto) 4.5, Eos % (Auto) 1.1 L, Baso % (Auto) 0.3, Gran # 6.24, Lymph # 4.5 H, [place] # 0.5, Eos # 0.1, Baso # 0.03, Neutrophils % (Manual) 48 L, Lymphocytes % (Manual) 41 H, Monocytes % (Manual) 8 H, Eosinophils % (Manual) 3 , Differential Comment Cancelled, Platelet Evaluation Normal, Anisocytosis ( manual) Slight Vital Signs Temp Pulse Pulse Resp BP Pulse Ox 06/01/17 10:04 86 132/96 H 06/01/17 07:39 98.2 F 86 20 132/96 H 05/31/17 16:12 94 H 127/89 05/31/17 09:06 82 130/95 H 05/31/17 07:40 98.0 F 82 20 130/95 H 05/30/17 18:12 100 H 17 05/30/17 13:51 98.9 F 72 16 132/74 99 05/30/17 08:00 98.1 F 104 H 18 123/83 98 05/30/17 05:35 98.2 F 108 H 16 144/[address] of the head 12/31/17 global parenchimal volume loss advanced for her age. Temp Pulse Resp BP Pulse Ox 98.5 F 88 18 133/85 99 06/05/17 07:02 06/05/17 07:02 06/05/17 07:02 06/05/17 09:32 06/05/17 07:02 Laboratory Results - last 24 hr 06/04/17 06/05/17 06/05/17 23:53 07:26 08:00 WBC 11.8 H RBC 4.07 Hgb 11.4 L Hct 34.8 L MCV 85.5 MCH 28.0 MCHC 32.8 RDW 16.1 H Plt Count 380 MPV 8.3 Gran % 63.2 Lymph % (Auto) 28.6 [place] % (Auto) 6.8 H Eos % (Auto) 1.1 L Baso % (Auto) 0.3 Gran # 7.43 H Lymph # 3.4 [place] # 0.8 H Eos # 0.1 Baso # 0.04 POC Glucose (mg/dL) 108 112 H 06/05/17 06/05/17 11:49 15:59 WBC RBC Hgb Hct MCV MCH MCHC RDW Plt Count MPV Gran % Lymph % (Auto) [place] % (Auto) Eos % (Auto) Baso % (Auto) Gran # Lymph # [place] # Eos # Baso # POC Glucose (mg/dL) 88 118 H DSM 5 Symptoms Update: rommeltly patient is 41 years old -[place] female, long and debilitating history of schizophrenia vs schizoaffective, treatment resistant, multiple admissions to the psychiatric inpatient unit in the past, including to this hospital, pt was d/c from [facility] April 28, less than a month ago, patient is followed by [facility] PACT team, pt is on clozaril and Haldol Dec. pt brought herself to the hospital looking for psychiatric admission for worsening of psychosis, self mutilating behavior, pt was not able to contract for safety in ED. Lisa PRICE at [facility] evaluated pt in ED yesterday, pt was found to be "not at her baseline", pt was agitated at ED, pt needs further evaluation and stabilization. meds confirmed, resumed, record reviewed, discussed with Lani LI at [facility] PACT team. Haldol Dec was given 05/30/17, tolerated it well. pt was seen by neurology and PT, no further recommendations. pt was seen today in her room today, sleepy, said that she needed to have a rest , pt is still very superficial, pt said that she is (delusions), pt keep drawing , which looks like cartoon hero, preoccupied with " living happily ever after", pt has weird look, wig pulled down on her forehead, withdrawn, apathetic.. no behavioral issues, as per staff pt was irritable, and refused to go to the group. pt tolerated meds well, no side effects observed or reported, Impression: schizoaffective disorder, bipolar type Medication Change: No Medical Record Reviewed: Yes Mental Status Examination - Cognitive Function Orientation: Person, Place Memory: Impaired Attention: Poor Concentration: Poor Association: Loose Fund of Knowledge: Poor - Mood Mood: Depressed (better) - Affect Affect: Flat - Formal Thought Process Formal Thought Process: Hallucinations (denies), Delusions (persist), Paranoia, Loosening of associations, Other (poverty of thoughts and speech) - Suicidal Ideation Suicidal Ideation: No - Homicidal Ideation Homicidal Ideation: No Goal/Treatment Plan - Goal/Treatment Plan Need for Continued Stay: Remain at risks for inpatient hospitalization, Severe depression anxiety, Discharge may exacerbated symptoms, Severe functional impairment Progress Toward Problem(s) and Goals/Treatment Plan: milieu, structure, supportive therapy medications were confirmed by patient treatment team 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 Injectable Haldol 100mg q monthly Injection due was 05/30/17 cogentin 1mg po bid for EPS Aspirin [Ecotrin] 81 mg PO DAILY Docusate [Colace] 100 mg PO BID Ezetimibe [Zetia] 10 mg PO DAILY Iron Polysaccharide [Ferrex-150] 150 mg PO DAILY Losartan [Cozaar] 100 mg PO DAILY MetFORMIN [glucoPHAGE] 1,000 mg PO BID Zoloft to 100 mg PO DAILY amLODIPine [Norvasc] 10 mg PO DAILY Medical consult was called Collateral information appreciated We'll monitor closely as per PACT team pt had h/o falls PT eval appreciated Neuro eval is pending SW evaluation will monitor Gran#, pt is on monthly monitoring of Gran#, submitted at [facility] on 05/30/17 Estimated Date of D/C: 06/08/17
[2017-06-06 07:26] VITALS: RESP 20
[2017-06-06 08:14] LABS: HEMOGLOBIN 11.4 g/dL (12.0-16.0); MEAN CELL VOLUME 84.7 fl (80.0-105.0); MEAN CORPUSCULAR HEMOGLOBIN 28.1 pg (25.0-35.0); MEAN CORPUSCULAR HGB CONC 33.1 g/dl (31.0-37.0); MEAN PLATELET VOLUME 8.2 fl (7.0-11.0); RBC 4.06 10^6/uL (3.5-6.1); RED CELL DISTRIBUTION WIDTH 15.9 % (11.5-14.5); WHITE BLOOD COUNT 10.6 10^3/ul (4.5-11.0)
[2017-06-06 08:29] LABS: ALB/GLOB RATIO 1.1 (1.1-1.8); ALBUMIN 3.7 g/dL (3.0-4.8); ALT/SGPT 33 U/L (7-56); AST/SGOT 20 U/L (14-36); BLOOD UREA NITROGEN 5 mg/dL (7-21); CALCIUM 9.2 mg/dL (8.4-10.5); GFR AFRICAN-AMERICAN > 60; GFR NON-AFRICAN AMERICAN > 60
--- NOTE | 2017-06-06 13:55 | PN ---
DATE: SUBJECTIVE: She is resting comfortably in bed. She has no complaint. She is eating well, going to the bathroom well. PHYSICAL EXAMINATION VITAL SIGNS: Temperature 98, 80 pulse, 109/70 blood pressure, 20 respiratory rate, and 99% O2 saturation on room air. HEENT: Head is atraumatic and normocephalic. HEART: Regular rate. LUNGS: Clear to auscultation. ABDOMEN: Soft. EXTREMITIES: No edema. MEDICATIONS: She is currently on Bactroban cream, Benadryl, Clozaril, Cogentin, Colace, Cozaar, Ecotrin, Feosol, Glucophage, Haldol, magnesium, Norvasc, Zetia, and Zoloft. LABORATORY DATA: She has 10.6 white count, better; 11.4 hemoglobin; 34.4 hematocrit with a 368 platelets. Sodium 138, potassium 4, BUN is 5, creatinine 0.4, GFR is greater than 60, sugar is 94, calcium 9.2, total bili is 0.3, AST is 20, ALT is 33, alkaline phosphatase is 80, and total protein is 6.9. ASSESSMENT AND PLAN: Overall, she is doing much better. We will continue as per Psychiatry. The white count lowered down. Jason Contreras DO
--- NOTE | 2017-06-06 16:58 | PCM.PYCHPN ---
Psychiatric Progress Note - Psychiatric Progress Note Patient seen today, length of contact: 30min Patient Chief Complaint: "I am doing just fine, I have best time in here" Problems Identified/Issues Discussed: Suicide/ homicide prevention, past psychiatric h/o, current psychiatric symptoms , medical problems, risk/benefits and alternatives of medications, medications compliance, coping strategies, substance abuse h/o, relapse prevention, importance of follow up with psychiatrist and therapist, discharge plan. Medical Problems: HTN, diabetis, dyslipidemia pt c/o gait abnormalities, and h/o falls PT was called, pt is not a candidate for skilled facility neurology team called as per PACT team request Diagnostic Results: 06/01/17 08:00 06/01/17 08:00 Lab Results 06/01/17 11:40: POC Glucose (mg/dL) 98 06/01/17 08:00: Sodium 136, Potassium 4.0, Chloride 102, Carbon Dioxide 24, Anion Gap 15, BUN 8, Creatinine 0.5 L, Est GFR ( Amer) > 60, Est GFR (Non -Af Amer) > 60, Random Glucose 111 H, Calcium 9.1, Total Bilirubin 0.3, AST 23, ALT 29, Alkaline Phosphatase 90, Total Protein 7.2, Albumin 3.9, Globulin 3.2, Albumin/Globulin Ratio 1.2 06/01/17 08:00: WBC 10.1, RBC 4.11, Hgb 11.4 L, Hct 34.9 L, MCV 84.9, MCH 27.7, MCHC 32.7, RDW 16.0 H, Plt Count 419, MPV 8.2 06/01/17 07:25: POC Glucose (mg/dL) 116 H 05/31/17 22:01: POC Glucose (mg/dL) 92 05/31/17 16:39: POC Glucose (mg/dL) 93 05/31/17 12:00: POC Glucose (mg/dL) 112 H 05/31/17 07:43: POC Glucose (mg/dL) 140 H 05/30/17 23:06: POC Glucose (mg/dL) 103 05/30/17 16:16: POC Glucose (mg/dL) 147 H 05/30/17 06:00: Urine HCG, Qual Negative 05/30/17 06:00: Alcohol, Quantitative < 10 05/30/17 06:00: Salicylates < 1 L, Acetaminophen < 10.0 L 05/30/17 06:00: Urine Opiates Screen Negative, Urine Methadone Screen Negative, Ur Barbiturates Screen Negative, Ur Phencyclidine Scrn Negative, Ur Amphetamines Screen Negative, U Benzodiazepines Scrn Negative, U Oth Cocaine Metabols Negative, U Cannabinoids Screen Negative 05/30/17 06:00: Sodium 139, Potassium 3.8, Chloride 102, Carbon Dioxide 22, Anion Gap 18, BUN 9, Creatinine 0.4 L, Est GFR ( Amer) > 60, Est GFR (Non -Af Amer) > 60, Random Glucose 192 H, Calcium 9.5, Total Bilirubin 0.2, AST 23, ALT 31, Alkaline Phosphatase 96, Total Protein 7.9, Albumin 4.3, Globulin 3.6, Albumin/Globulin Ratio 1.2 05/30/17 06:00: Urine Color Yellow, Urine Appearance Clear, Urine pH 6.0, Ur Specific [place] 1.020, Urine Protein Negative, Urine Glucose (UA) Negative, Urine Ketones Negative, Urine Blood Negative, Urine Nitrate Negative, Urine Bilirubin Negative, Urine Urobilinogen 0.2, Ur Leukocyte Esterase Negative 05/30/17 06:00: WBC 11.4 H, RBC 4.26, Hgb 12.1, Hct 36.1, MCV 84.7, MCH 28.4, MCHC 33.5, RDW 16.1 H, Plt Count 466 H, MPV 8.5, Gran % 54.6, Lymph % (Auto) 39.5 H, [place] % (Auto) 4.5, Eos % (Auto) 1.1 L, Baso % (Auto) 0.3, Gran # 6.24, Lymph # 4.5 H, [place] # 0.5, Eos # 0.1, Baso # 0.03, Neutrophils % (Manual) 48 L, Lymphocytes % (Manual) 41 H, Monocytes % (Manual) 8 H, Eosinophils % (Manual) 3 , Differential Comment Cancelled, Platelet Evaluation Normal, Anisocytosis ( manual) Slight Vital Signs Temp Pulse Pulse Resp BP Pulse Ox 06/01/17 10:04 86 132/96 H 06/01/17 07:39 98.2 F 86 20 132/96 H 05/31/17 16:12 94 H 127/89 05/31/17 09:06 82 130/95 H 05/31/17 07:40 98.0 F 82 20 130/95 H 05/30/17 18:12 100 H 17 05/30/17 13:51 98.9 F 72 16 132/74 99 05/30/17 08:00 98.1 F 104 H 18 123/83 98 05/30/17 05:35 98.2 F 108 H 16 144/[address] of the head 12/31/17 global parenchimal volume loss advanced for her age. Temp Pulse Resp BP Pulse Ox 98.5 F 88 18 133/85 99 06/05/17 07:02 06/05/17 07:02 06/05/17 07:02 06/05/17 09:32 06/05/17 07:02 Laboratory Results - last 24 hr 06/04/17 06/05/17 06/05/17 23:53 07:26 08:00 WBC 11.8 H RBC 4.07 Hgb 11.4 L Hct 34.8 L MCV 85.5 MCH 28.0 MCHC 32.8 RDW 16.1 H Plt Count 380 MPV 8.3 Gran % 63.2 Lymph % (Auto) 28.6 [place] % (Auto) 6.8 H Eos % (Auto) 1.1 L Baso % (Auto) 0.3 Gran # 7.43 H Lymph # 3.4 [place] # 0.8 H Eos # 0.1 Baso # 0.04 POC Glucose (mg/dL) 108 112 H 06/05/17 06/05/17 11:49 15:59 WBC RBC Hgb Hct MCV MCH MCHC RDW Plt Count MPV Gran % Lymph % (Auto) [place] % (Auto) Eos % (Auto) Baso % (Auto) Gran # Lymph # [place] # Eos # Baso # POC Glucose (mg/dL) 88 118 H DSM 5 Symptoms Update: shortly patient is 41 years old -[place] female, long and debilitating history of schizophrenia vs schizoaffective, treatment resistant, multiple admissions to the psychiatric inpatient unit in the past, including to this hospital, pt was d/c from [facility] April 28, less than a month ago, patient is followed by [facility] PACT team, pt is on clozaril and Haldol Dec. pt brought herself to the hospital looking for psychiatric admission for worsening of psychosis, self mutilating behavior, pt was not able to contract for safety in ED. Lisa PRICE at [facility] evaluated pt in ED, pt was found to be "not at her baseline", pt was agitated at ED, pt needs further evaluation and stabilization. meds confirmed, resumed, record reviewed, discussed with Lani LI at [facility] PACT team. Haldol Dec was given 05/30/17, tolerated it well. pt was seen by neurology and PT, no further recommendations. pt was seen today in her room today, sleepy, said that "I have best time ever "had difficulties to express what does it mean. no behavioral issues, as per staff pt was irritable, and refused to go to the group. pt tolerated meds well, no side effects observed or reported, PACT team was called, left a message Impression: schizoaffective disorder, bipolar type Medication Change: No Medical Record Reviewed: Yes Mental Status Examination - Cognitive Function Orientation: Person, Place Memory: Impaired Attention: Poor Concentration: Poor Association: Loose Fund of Knowledge: Poor - Mood Mood: Depressed (better) - Affect Affect: Flat - Speech Speech: Appropriate - Formal Thought Process Formal Thought Process: Hallucinations (denies), Delusions (persist), Paranoia, Loosening of associations, Other (poverty of thoughts and speech) - Suicidal Ideation Suicidal Ideation: No - Homicidal Ideation Homicidal Ideation: No Goal/Treatment Plan - Goal/Treatment Plan Need for Continued Stay: Remain at risks for inpatient hospitalization, Severe depression anxiety, Discharge may exacerbated symptoms, Severe functional impairment Progress Toward Problem(s) and Goals/Treatment Plan: milieu, structure, supportive therapy medications were confirmed by patient treatment team 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 Injectable Haldol 100mg q monthly Injection due was 05/30/17 cogentin 1mg po bid for EPS Aspirin [Ecotrin] 81 mg PO DAILY Docusate [Colace] 100 mg PO BID Ezetimibe [Zetia] 10 mg PO DAILY Iron Polysaccharide [Ferrex-150] 150 mg PO DAILY Losartan [Cozaar] 100 mg PO DAILY MetFORMIN [glucoPHAGE] 1,000 mg PO BID Zoloft to 100 mg PO DAILY amLODIPine [Norvasc] 10 mg PO DAILY Medical consult was called Collateral information appreciated We'll monitor closely as per PACT team pt had h/o falls PT eval appreciated Neuro eval is pending SW evaluation will monitor Gran#, pt is on monthly monitoring of Gran#, submitted at [facility] on 05/30/17 PACT team was called, left a message Estimated Date of D/C: 06/08/17
--- NOTE | 2017-06-07 10:54 | PN ---
DATE: SUBJECTIVE: I saw her resting comfortably in bed. She slept well. She has no complaints this morning. She is getting ready for breakfast, and she is participating in groups and feels like she is improving. She is on Bactroban cream, Clozaril, Cogentin, Colace, Cozaar, Ecotrin, Feosol, Glucophage, Haldol, milk of magnesia, Norvasc, Zetia and Zoloft. PHYSICAL EXAMINATION: VITAL SIGNS: 98.1 temperature, 82 pulse, 122/88 blood pressure, and 20 respiratory rate. HEENT: Head is atraumatic, normocephalic. HEART: Regular rate. LUNGS: Clear to auscultation. ABDOMEN: Soft. EXTREMITIES: No edema. LABORATORY DATA: Her last tests were yesterday, she had white count 10.6, better, 11.4 hemoglobin and 368 platelets. Last blood sugar was 103. SMA-20 yesterday was very good. Blood sugars down to 103, very good. Urine was clear. negative. Toxicology was negative. ASSESSMENT AND PLAN: She is being seen by Psychiatry. I encouraged her to participate in groups, eat food, do well, participate, walk. I think she is doing quite well and she has multiple issues. She has schizophrenia, auditory hallucinations, diabetes, anemia, falls, hypertension. We will continue with aggressive treatment and care. Jason Contreras DO
--- NOTE | 2017-06-07 15:58 | PCM.PYCHPN ---
Psychiatric Progress Note - Psychiatric Progress Note Patient seen today, length of contact: 30min Patient Chief Complaint: "I am doing just fine" Problems Identified/Issues Discussed: Suicide/ homicide prevention, past psychiatric h/o, current psychiatric symptoms , medical problems, risk/benefits and alternatives of medications, medications compliance, coping strategies, substance abuse h/o, relapse prevention, importance of follow up with psychiatrist and therapist, discharge plan. Medical Problems: HTN, diabetis, dyslipidemia pt c/o gait abnormalities, and h/o falls PT was called, pt is not a candidate for skilled facility neurology team called as per PACT team request Diagnostic Results: 06/01/17 08:00 06/01/17 08:00 Lab Results 06/01/17 11:40: POC Glucose (mg/dL) 98 06/01/17 08:00: Sodium 136, Potassium 4.0, Chloride 102, Carbon Dioxide 24, Anion Gap 15, BUN 8, Creatinine 0.5 L, Est GFR ( Amer) > 60, Est GFR (Non -Af Amer) > 60, Random Glucose 111 H, Calcium 9.1, Total Bilirubin 0.3, AST 23, ALT 29, Alkaline Phosphatase 90, Total Protein 7.2, Albumin 3.9, Globulin 3.2, Albumin/Globulin Ratio 1.2 06/01/17 08:00: WBC 10.1, RBC 4.11, Hgb 11.4 L, Hct 34.9 L, MCV 84.9, MCH 27.7, MCHC 32.7, RDW 16.0 H, Plt Count 419, MPV 8.2 06/01/17 07:25: POC Glucose (mg/dL) 116 H 05/31/17 22:01: POC Glucose (mg/dL) 92 05/31/17 16:39: POC Glucose (mg/dL) 93 05/31/17 12:00: POC Glucose (mg/dL) 112 H 05/31/17 07:43: POC Glucose (mg/dL) 140 H 05/30/17 23:06: POC Glucose (mg/dL) 103 05/30/17 16:16: POC Glucose (mg/dL) 147 H 05/30/17 06:00: Urine HCG, Qual Negative 05/30/17 06:00: Alcohol, Quantitative < 10 05/30/17 06:00: Salicylates < 1 L, Acetaminophen < 10.0 L 05/30/17 06:00: Urine Opiates Screen Negative, Urine Methadone Screen Negative, Ur Barbiturates Screen Negative, Ur Phencyclidine Scrn Negative, Ur Amphetamines Screen Negative, U Benzodiazepines Scrn Negative, U Oth Cocaine Metabols Negative, U Cannabinoids Screen Negative 05/30/17 06:00: Sodium 139, Potassium 3.8, Chloride 102, Carbon Dioxide 22, Anion Gap 18, BUN 9, Creatinine 0.4 L, Est GFR ( Amer) > 60, Est GFR (Non -Af Amer) > 60, Random Glucose 192 H, Calcium 9.5, Total Bilirubin 0.2, AST 23, ALT 31, Alkaline Phosphatase 96, Total Protein 7.9, Albumin 4.3, Globulin 3.6, Albumin/Globulin Ratio 1.2 05/30/17 06:00: Urine Color Yellow, Urine Appearance Clear, Urine pH 6.0, Ur Specific [place] 1.020, Urine Protein Negative, Urine Glucose (UA) Negative, Urine Ketones Negative, Urine Blood Negative, Urine Nitrate Negative, Urine Bilirubin Negative, Urine Urobilinogen 0.2, Ur Leukocyte Esterase Negative 05/30/17 06:00: WBC 11.4 H, RBC 4.26, Hgb 12.1, Hct 36.1, MCV 84.7, MCH 28.4, MCHC 33.5, RDW 16.1 H, Plt Count 466 H, MPV 8.5, Gran % 54.6, Lymph % (Auto) 39.5 H, Pope % (Auto) 4.5, Eos % (Auto) 1.1 L, Baso % (Auto) 0.3, Gran # 6.24, Lymph # 4.5 H, Pope # 0.5, Eos # 0.1, Baso # 0.03, Neutrophils % (Manual) 48 L, Lymphocytes % (Manual) 41 H, Monocytes % (Manual) 8 H, Eosinophils % (Manual) 3 , Differential Comment Cancelled, Platelet Evaluation Normal, Anisocytosis ( manual) Slight Vital Signs Temp Pulse Pulse Resp BP Pulse Ox 06/01/17 10:04 86 132/96 H 06/01/17 07:39 98.2 F 86 20 132/96 H 05/31/17 16:12 94 H 127/89 05/31/17 09:06 82 130/95 H 05/31/17 07:40 98.0 F 82 20 130/95 H 05/30/17 18:12 100 H 17 05/30/17 13:51 98.9 F 72 16 132/74 99 05/30/17 08:00 98.1 F 104 H 18 123/83 98 05/30/17 05:35 98.2 F 108 H 16 144/[address] of the head 12/31/17 global parenchimal volume loss advanced for her age. Temp Pulse Resp BP Pulse Ox 98.5 F 88 18 133/85 99 06/05/17 07:02 06/05/17 07:02 06/05/17 07:02 06/05/17 09:32 06/05/17 07:02 Laboratory Results - last 24 hr 06/04/17 06/05/17 06/05/17 23:53 07:26 08:00 WBC 11.8 H RBC 4.07 Hgb 11.4 L Hct 34.8 L MCV 85.5 MCH 28.0 MCHC 32.8 RDW 16.1 H Plt Count 380 MPV 8.3 Gran % 63.2 Lymph % (Auto) 28.6 Pope % (Auto) 6.8 H Eos % (Auto) 1.1 L Baso % (Auto) 0.3 Gran # 7.43 H Lymph # 3.4 Pope # 0.8 H Eos # 0.1 Baso # 0.04 POC Glucose (mg/dL) 108 112 H 06/05/17 06/05/17 11:49 15:59 WBC RBC Hgb Hct MCV MCH MCHC RDW Plt Count MPV Gran % Lymph % (Auto) Pope % (Auto) Eos % (Auto) Baso % (Auto) Gran # Lymph # Pope # Eos # Baso # POC Glucose (mg/dL) 88 118 H DSM 5 Symptoms Update: shortly patient is 41 years old -[place] female, long and debilitating history of schizophrenia vs schizoaffective, treatment resistant, multiple admissions to the psychiatric inpatient unit in the past, including to this hospital, pt was d/c from [facility] April 28, less than a month ago, patient is followed by [facility] PACT team, pt is on clozaril and Haldol Dec. pt brought herself to the hospital looking for psychiatric admission for worsening of psychosis, self mutilating behavior, pt was not able to contract for safety in ED. Lisa PRICE at [facility] evaluated pt in ED, pt was found to be "not at her baseline", pt was agitated at ED, pt needs further evaluation and stabilization. Haldol Dec was given 05/30/17, tolerated it well. Lisa from PACT team visited pt, pt found to be at her baseline, deems ready for discharge. pt was seen by neurology and PT, no further recommendations. pt was seen at tx team meeting, pt is sleepy, pt said sleepiness due to meds. as per staff pt has episodes when pt talk to herself, but no agitation or aggression, at times refused PT and groups. pt tolerated meds well, no side effects observed or reported, PACT team was called, left a message Impression: schizoaffective disorder, bipolar type Medication Change: No Medical Record Reviewed: Yes Consults ordered or reviewed: medical team and PT neuro called Mental Status Examination - Cognitive Function Orientation: Person, Place Memory: Impaired Attention: Poor (some improvement but poor as baseline) Concentration: Poor (some improvement but poor as baseline) Association: Loose (some improvement but poor as baseline) Fund of Knowledge: Poor (some improvement but poor as baseline) - Mood Mood: Depressed (better) - Affect Affect: Flat - Speech Speech: Appropriate - Formal Thought Process Formal Thought Process: Hallucinations (denies), Delusions (persist), Paranoia, Loosening of associations, Other (poverty of thoughts and speech) - Suicidal Ideation Suicidal Ideation: No - Homicidal Ideation Homicidal Ideation: No Goal/Treatment Plan - Goal/Treatment Plan Need for Continued Stay: Remain at risks for inpatient hospitalization, Severe depression anxiety, Discharge may exacerbated symptoms, Severe functional impairment Progress Toward Problem(s) and Goals/Treatment Plan: milieu, structure, supportive therapy medications were confirmed by patient treatment team 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 Injectable Haldol 100mg q monthly Injection due was 05/30/17 cogentin 1mg po bid for EPS Aspirin [Ecotrin] 81 mg PO DAILY Docusate [Colace] 100 mg PO BID Ezetimibe [Zetia] 10 mg PO DAILY Iron Polysaccharide [Ferrex-150] 150 mg PO DAILY Losartan [Cozaar] 100 mg PO DAILY MetFORMIN [glucoPHAGE] 1,000 mg PO BID Zoloft to 100 mg PO DAILY amLODIPine [Norvasc] 10 mg PO DAILY Medical consult was called Collateral information appreciated We'll monitor closely as per PACT team pt had h/o falls PT eval appreciated Neuro eval is pending SW evaluation will monitor Gran#, pt is on monthly monitoring of Gran#, submitted at [facility] on 05/30/17 PACT team visited pt, pt deems ready for d/c tomorrow Estimated Date of D/C: 06/08/17
[2017-06-08 07:40] VITALS: BP 123/61; PULSE 80; TEMP 97.9
--- NOTE | 2017-06-08 12:26 | PN ---
DATE: SUBJECTIVE: I saw her on the Psychiatric floor today. She is resting comfortably in bed. She is slowly getting up. She has no complaints. She tells me she is improving, I understands she might be being discharged today, she is happy about that. MEDICATIONS: She is on Bactroban cream, Benadryl, Clozaril, Cogentin, Colace, Cozaar, Ecotrin, Feosol, Glucophage, Haldol, milk of magnesia, Norvasc, Zetia, and Zoloft. PHYSICAL EXAMINATION: VITAL SIGNS: Are 97.9 temperature, 80 pulse, 123/64 blood pressure, and 20 respiratory rate. HEENT: Head is atraumatic and normocephalic. CARDIOVASCULAR: Heart has regular rate. LUNGS: Clear to auscultation. GASTROINTESTINAL: Abdomen is soft. EXTREMITIES: No edema. LABORATORY DATA: Last labs on the 06/06/2017, she did very well with the CBC and she did very well with her chemistry and her last blood sugar was 102. IMPRESSION AND PLAN: She is here for schizophrenia, auditory hallucinations, diabetes, anemia, hypertension and fall. She is doing much better and hopefully she will be able to be discharged and come back. Jason Contreras DO MTDD
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
== END 2017-06-08 11:39 | disposition home or self-care (01) | DRG 885 ==
LOC: ED 05:21 → ERH 10:42 → PSYC 14:24
PROVIDERS: ADMIT Psychiatry & Neurology Psychiatry; ATTEND Psychiatry & Neurology Psychiatry
DX: F25.0 Schizoaffective disorder, bipolar type (principal); R56.9 Unspecified convulsions; F22 Delusional disorders; E11.9 Type 2 diabetes mellitus without complications; F41.9 Anxiety disorder, unspecified; E78.5 Hyperlipidemia, unspecified; D64.9 Anemia, unspecified; I10 Essential (primary) hypertension; R29.6 Repeated falls; S61.519A Laceration without foreign body of unspecified wrist, initial encounter; W26.0XXA Contact with knife, initial encounter; Z53.20 Procedure and treatment not carried out because of patient's decision for unspecified reasons; Z79.82 Long term (current) use of aspirin; Z79.84 Long term (current) use of oral hypoglycemic drugs; Z79.899 Other long term (current) drug therapy; Z87.891 Personal history of nicotine dependence; Z91.81 History of falling

== ENCOUNTER 2017-10-02 18:42 | Inpatient (IN) | payer MEDICARE, MEDICAID ==
[2017-10-02 19:07] VITALS: BMI 29.7
--- NOTE | 2017-10-02 19:43 | ED PDOC ---
Arrival/HPI - General Chief Complaint: Psychiatric Evaluation Time Seen by Provider: 10/02/17 19:23 Historian: Patient - History of Present Illness Narrative History of Present Illness (Text): 10/02/17 19:41 A 41 year old female presents to the emergency department expressing suicidal ideation. The patient states that she has a plan to use a carving knife. The patient also notes that she has been hearing voices telling her to kill herself. The patient denies fevers, chills, headache, dizziness, chest pain, shortness of breath, dyspnea on exertion, cough, abdominal pain, nausea, vomiting, diarrhea, back pain, neck pain, urinary/bowel changes, or any other complaint. Time/Duration: Prior to Arrival Symptom Onset: Sudden Symptom Course: Unchanged Activities at Onset: Rest, Light Context: Home Past Medical History - Provider Review Nursing Documentation Reviewed: Yes - Past History Past History: Non-Contributing - Infectious Disease Hx of Infectious Diseases: None - Tetanus Immunization Tetanus Immunization: Unknown - Cardiac Hx Hypertension: Yes - Pulmonary Hx Tuberculosis: No - Neurological Hx Seizures: Yes - HEENT Hx HEENT Disorder: No - Endocrine/Metabolic Hx Endocrine Disorders: Yes Hx Diabetes Mellitus Type 2: Yes - Hematological/Oncological Hx Anemia: Yes - Integumentary Hx Dermatological Disorder: No - Musculoskeletal/Rheumatological Hx Musculoskeletal Disorders: No - Gastrointestinal Hx Gastrointestinal Disorders: No - Genitourinary/Gynecological Hx Sexually Transmitted Diseases: No - Psychiatric Hx Anxiety: Yes Hx Bipolar Disorder: Yes Hx Depression: Yes Hx Schizophrenia: Yes Hx Substance Use: No - Anesthesia Hx Anesthesia: No - Suicidal Assessment Feels Threatened In Home Enviroment: No Family/Social History - Physician Review Nursing Documentation Reviewed: Yes Family/Social History: No Known Family HX Smoking Status: Former Smoker Hx Alcohol Use: No Hx Substance Use: No Hx Substance Use Treatment: No Allergies/Home Meds Allergies/Adverse Reactions: Allergies No Known Allergies Allergy (Verified 10/02/17 19:07) Home Medications: Home Meds Medication Instructions Recorded Confirmed Haloperidol [place] [Haldol 100 mg IM Q30D 04/03/17 10/02/17 [place]ate--long acting] Review of Systems - Review of Systems Respiratory: absent: SOB Cardiovascular: absent: Chest Pain Physical Exam - Physical Exam Narrative Physical Exam (Text): 10/02/17 19:41 Constitutional: No acute distress. Head: Normocephalic. Atraumatic. Eyes: PERRL. ENT: Moist mucous membranes. Neck: Supple. Cardiovascular: Regular rate. Chest: No tenderness. Respiratory: Clear to auscultation bilaterally. GI: Soft. Nontender. Nondistended. Back: No CVA tenderness. Musculoskeletal: No tenderness or swelling of extremities. Skin: No rash. Neurologic: Alert, no focal deficit. Vital Signs Reviewed: Yes Vital Signs Temp Pulse Resp BP Pulse Ox 10/03/17 01:00 98.1 F 88 18 146/78 99 10/02/17 23:00 84 18 152/74 H 99 10/02/17 21:00 95 H 18 148/82 100 10/02/17 19:26 98.2 F 100 H 20 144/87 98 Temperature: Afebrile Blood Pressure: Normal Pulse: Tachycardic Respiratory Rate: Normal Appearance: Positive for: Well-Appearing, Non-Toxic, Comfortable Pain Distress: None Mental Status: Positive for: Alert and Oriented X 3 Medical Decision Making ED Course and Treatment: 10/02/17 19:42 Impression: A 41 year old female presents to the emergency department expressing suicidal ideation. Plan: -- EKG -- Chest X-ray -- Labs -- Urinalysis -- Reassess and disposition Progress Notes: 10/02/17 20:02 EKG: Ordered, reviewed, and independently interpreted the EKG. Rate : 106 BPM Rhythm : Sinus Rhythm Interpretation : No ST-segment elevations. Comparison : No previous EKG for comparison. CXR Impression: No acute disease. 10/03/17 01:10 PES seen and evaluated patient. Patient will be admitted to Dr. Brar. Dr. Brar is aware and agrees with the plan. - Lab Interpretations Lab Results: 10/02/17 20:10 10/02/17 20:10 Lab Results 10/02/17 22:37: Alcohol, Quantitative < 10 10/02/17 22:37: Salicylates < 1 L, Acetaminophen < 10.0 L 10/02/17 20:25: Urine Opiates Screen Negative, Urine Methadone Screen Negative, Ur Barbiturates Screen Negative, Ur Phencyclidine Scrn Negative, Ur Amphetamines Screen Negative, U Benzodiazepines Scrn Negative, U Oth Cocaine Metabols Negative, U Cannabinoids Screen Negative 10/02/17 20:25: Urine Color Dark yellow, Urine Appearance Slight-cloudy, Urine pH 5.5, Ur Specific [place] >= 1.030, Urine Protein Trace H, Urine Glucose (UA) Negative, Urine Ketones 40 H, Urine Blood Large H, Urine Nitrate Negative, Urine Bilirubin Negative, Urine Urobilinogen 0.2, Ur Leukocyte Esterase Negative , Urine RBC Tntc, Urine WBC Negative, Ur Epithelial Cells None, Urine HCG, Qual Negative 10/02/17 20:10: Sodium 142, Potassium 4.2, Chloride 101, Carbon Dioxide 21, Anion Gap 25 H, BUN 8, Creatinine 0.4 L, Est GFR ( Amer) > 60, Est GFR ( Non-Af Amer) > 60, Random Glucose 150 H, Calcium 9.4, Total Bilirubin 0.2, AST 30, ALT 24, Alkaline Phosphatase 74, Total Protein 7.6, Albumin 4.1, Globulin 3.5, Albumin/Globulin Ratio 1.2 10/02/17 20:10: WBC 12.0 H, RBC 4.30, Hgb 12.2, Hct 36.3, MCV 84.4, MCH 28.4, MCHC 33.6, RDW 17.2 H, Plt Count 121, MPV 9.5, Gran % 57.4, Lymph % (Auto) 32.9 , [place] % (Auto) 8.6 H, Eos % (Auto) 0.8 L, Baso % (Auto) 0.3, Gran # 6.89 H, Lymph # (Auto) 3.9 H, [place] # (Auto) 1.0 H, Eos # (Auto) 0.1, Baso # (Auto) 0.03 I have reviewed the lab results: Yes - RAD Interpretation Radiology Orders: 10/02/17 19:23 CHEST PORTABLE [RAD] Stat - EKG Interpretation Interpreted by ED Physician: Yes Type: 12 lead EKG - Scribe Statement The provider has reviewed the documentation as recorded by the Sridevi Clifford Provider Scribe Attestation: All medical record entries made by the Scribe were at my direction and personally dictated by me. I have reviewed the chart and agree that the record accurately reflects my personal performance of the history, physical exam, medical decision making, and the department course for this patient. I have also personally directed, reviewed, and agree with the discharge instructions and disposition. Disposition/Present on Arrival - Present on Arrival Any Indicators Present on Arrival: No History of DVT/PE: No History of Uncontrolled Diabetes: No Urinary Catheter: No History of Decub. Ulcer: No History Surgical Site Infection Following: None - Disposition Have Diagnosis and Disposition been Completed?: Yes Diagnosis: Schizoaffective disorder Disposition: HOSPITALIZED Disposition Time: 01:20 Patient Plan: Admission Condition: STABLE
[2017-10-02 20:21] LABS: BASO # 0.03 K/mm3 (0.0-2.0); BASO % 0.3 % (0.0-3.0); EOS # 0.1 (0.0-0.7); EOS % 0.8 % (1.5-5.0); GRAN # 6.89 (1.4-6.5); GRAN % 57.4 % (50.0-68.0); HEMOGLOBIN 12.2 g/dL (12.0-16.0); LYMPH # 3.9 (1.2-3.4); LYMPH % 32.9 % (22.0-35.0); MEAN CELL VOLUME 84.4 fl (80.0-105.0); MEAN CORPUSCULAR HEMOGLOBIN 28.4 pg (25.0-35.0); MEAN CORPUSCULAR HGB CONC 33.6 g/dl (31.0-37.0); MEAN PLATELET VOLUME 9.5 fl (7.0-11.0); MONO % 8.6 % (1.0-6.0); RBC 4.3 10^6/uL (3.5-6.1); RED CELL DISTRIBUTION WIDTH 17.2 % (11.5-14.5)
[2017-10-02 20:30] LABS: ALB/GLOB RATIO 1.2 (1.1-1.8); ALBUMIN 4.1 g/dL (3.0-4.8); ALT/SGPT 24 U/L (7-56); AST/SGOT 30 U/L (14-36); BLOOD UREA NITROGEN 8 mg/dL (7-21); CALCIUM 9.4 mg/dL (8.4-10.5); GFR AFRICAN-AMERICAN > 60; GFR NON-AFRICAN AMERICAN > 60
[2017-10-02 20:34] LABS: PH,URINE 5.5 (4.7-8.0); URINE BILIRUBIN NEGATIVE (NEGATIVE); URINE BLOOD LARGE (NEGATIVE); URINE GLUCOSE (UA) NEGATIVE (NEGATIVE); URINE LEUKOCYTE ESTERASE NEGATIVE Leu/uL (NEGATIVE); URINE PROTEIN TRACE mg/dL (<30 mg/dL); URINE UROBILINOGEN 0.2 E.U./dL (<1 E.U./dL)
[2017-10-02 20:35] LABS: URINE APPEARANCE SLIGHT-CLOUDY (CLEAR); URINE COLOR DARK YELLOW (YELLOW)
[2017-10-02 20:47] LABS: HCG,QUALITATIVE URINE NEGATIVE (NEGATIVE)
[2017-10-02 20:50] LABS: URINE RBC TNTC /hpf (0-2); URINE WBC NEGATIVE /hpf (0-6)
[2017-10-02 20:53] LABS: ACETAMINOPHEN < 10.0 ug/ml (10.0-20.0); SALICYLATE < 1 mg/dL (2.0-20.0)
[2017-10-02 21:08] LABS: BARBITURATES, UR NEGATIVE (NEGATIVE); BENZODIAZEPINES, UR NEGATIVE (NEGATIVE); OPIATES, UR NEGATIVE (NEGATIVE); PHENCYCLIDINE, UR NEGATIVE (NEGATIVE)
[2017-10-03 05:25] VITALS: O2SAT 98
--- NOTE | 2017-10-03 05:35 | PCM.BM ---
<HomeAlek - Last Filed: 10/03/17 05:32> Treatment Plan Problems - Problems identified on initial assessmt Command/Auditory Hallucinations Date Initiated: 10/03/17 Time Initiated: 02:45 Assessment reference: NA Status: Active Priority: 1 Altered Thought Process Date Initiated: 10/03/17 Time Initiated: 02:45 Assessment reference: NA Status: Active Priority: 2 Ineffective Coping Date Initiated: 10/03/17 Time Initiated: 02:45 Assessment reference: NA Status: Active Priority: 3 Social Isolation Date Initiated: 10/03/17 Time Initiated: 02:45 Assessment reference: NA Status: Active Priority: 4 Treatment assets and liabiliti Patient Assests: adapts well, cooperative, self-reliant, ADL independent, negotiates basic needs, cognitively intact, good interpersonal skills Patient Liabilities: live alone, financial problems, poor support system - Milieu Protocol Maintain good personal hygiene: daily Encourage regular showers, every shift Remind patient to perform daily oral care, every shift Assist patient to perform ADL's Maintain personal safety: every shift Educate patient to report safety concerns to staff, every shift Monitor environment for contraband/sharps Medication safety: Monitor for expected outcome, potential side effects: every shift, Assess barriers to learning: every shift, Assess readiness for medication education: every shift Family Contact Family involvement: Family/SO is involved Family contact: Patient agrees to contact - Goals for Treatment Patient goals for treatment: "To get better." Discharge/Continuing Care - Education Needs Education Needs: Patient Medication, Patient Diagnosis/Disease Process, Patient Coping Skills, Patient Anger Management skills, Patient Placement options, Patient Community resources, Patient Activities of Daily Living, Patient Pain, Patient Nutrition, Patient Uses of Medical Equipment, Patient Health Practices/ Safety, Patient Personal Hygiene/Grooming, Patient Aftercare Safety Plan - Discharge Discharge Criteria: Tolerates medication w/o severe side effects <Zonia José - Last Filed: 10/03/17 15:51> - Diagnosis (1) Schizoaffective disorder Status: Chronic Interventions: 10/03/17 15:52 Psychoeducation/psychotherapy Psychopharmacology/adjustment of medications as needed/ monitoring possible side effects Evaluate pt on daily basis Compliance with medications and follow up appointments Long acting medication if pt is noncompliant with pill form Suicide and homicide risk assessment and prevention, coping strategies, safety plan Relapse prevention Reduction of symptoms Improve functional status Possible assertive community treatment Cognitive behavioral therapy Family involvement Possible social skill training as outpatient <Raisa Miller Y - Last Filed: 10/05/17 15:35> Family Contact - Outside Agency [facility] Care involvment: Following patient during stay, Information-sharing Agency contact name: [facility] PACT Agency contact number: [phone]
[2017-10-03] MEDS ORDERED: Alum-Mag Hydrox-Simethicone Susp (30 mL) PO PRN (07:10)
[2017-10-03] MEDS ORDERED: Magnesium Hydroxide Susp 30 ml UD PO PRN (07:10)
[2017-10-03] MEDS ORDERED: Non Formulary Medication (Ferrous Sulfate [Feosol] 325 MG) PO SCH (08:00)
[2017-10-03 08:27] LABS: GLUCOSE,FASTING 169 mg/dL (65-110); HDL CHOLESTEROL 27 mg/dL (29-60)
[2017-10-03 08:37] LABS: LDL CHOLESTEROL 150 mg/dL (0-129)
--- NOTE | 2017-10-03 08:49 | RAD ---
HISTORY: psych COMPARISON: 05/30/2017 FINDINGS: LUNGS: No active pulmonary disease. PLEURA: No significant pleural effusion identified, no pneumothorax apparent. CARDIOVASCULAR: Normal. OSSEOUS STRUCTURES: No significant abnormalities. VISUALIZED UPPER ABDOMEN: Normal. OTHER FINDINGS: None. IMPRESSION: No active disease.
--- NOTE | 2017-10-03 10:38 | CARD ---
APPROVED REPORT EKG Measurement Heart [id number] <Conclusion> Sinus tachycardia Possible Left atrial enlargement Nonspecific T wave abnormality Abnormal ECG
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
[2017-10-03] MEDS: Divalproex 500 mg ER (ONCE DAILY formulation) PO SCH (21:12)
--- NOTE | 2017-10-03 21:55 | CON ---
DATE: HISTORY OF PRESENT ILLNESS: I was called to the psychiatric unit to be a medical consult on Gato Garces. I have known her for very long time and many admissions to the psychiatric unit. She is a 41-year-old -Nigerien female who presents with, especially, suicidal ideations using a carving knife, hearing voices telling her to kill herself. She has done this before numerous times when she stopped taking her medications. I am seeing her right now in bed. She slept fairly well. She is comfortable, doing better. PAST MEDICAL HISTORY: She has history of hypertension, seizures, diabetes, anxiety, bipolar, depression, schizophrenia, some times paranoid. FAMILY HISTORY: Has hypertension in the family. SOCIAL HISTORY: She is a former smoker. No alcohol. No drugs. ALLERGIES: NO KNOWN DRUG ALLERGIES. MEDICATIONS: She is on Haldol. REVIEW OF SYSTEMS: No acute vision changes. No hearing changes except that she was hearing voices, but little bit better now. No sore throat. No chest pain or palpitations. No shortness of breath. No cough. No abdominal pain, nausea, vomiting, constipation, diarrhea. Extremities are okay. Skin for the most part is intact. PHYSICAL EXAMINATION: VITAL SIGNS: She has 98.1 temperature, 88 pulse, 18 respiratory rate,146/70 blood pressure, 99% O2 sat on room air. HEENT: Head is atraumatic and normocephalic. She is looking at me, eyes are open. Extraocular muscles are intact. clear. Throat is moist. NECK: Supple. HEART: Regular rate. LUNGS: Decreased breath sounds. Clear to auscultation. Poor inspiration. ABDOMEN: Soft, nontender. Positive bowel sounds. No guarding or rebound. No CVA tenderness. EXTREMITIES: No edema. She can move all 4 extremities well. SKIN: There are no rashes or ulcers appreciated. LYMPH: Thyroid midline. No palpable appreciable lymphadenopathy. NEUROLOGIC: Well appearing, nontoxic at this time, alert and oriented x3 to me. LABORATORY DATA: She had multiple tests. She has 12,000 white count. I will check it again tomorrow. If it stays high, then I will talk about cultures. Right now, maybe it is inflammatory. She has 12.2 hemoglobin, 36.3 hematocrit with 121 platelets. Sodium 142, potassium 4.2, BUN is 8, creatinine is 0.4, GFR is greater than 60, sugar is 147, calcium is 9.4, total bilirubin is 0.2, AST is 30, ALT is 24, alkaline phosphatase 74, total protein 7.6, albumin is 4.1, cholesterol is 190, triglycerides 250, TSH is 3.32. Urine, some blood in the urine. Tox screen is negative. Chest x-ray was clear. ASSESSMENT: She is here for suicidal ideation, auditory hallucinations. She has hypertension, leukocytosis, diabetes. PLAN: We will check her labs tomorrow and follow these numbers. I will adjust blood pressure medicine as needed and she might need to be on antibiotics if her white count stays elevated. Thank you for allowing me to participate in the treatment of Gato Garces. Jason Contreras DO [email or web address]
[2017-10-04 07:04] LABS: HEMOGLOBIN 11.4 g/dL (12.0-16.0); MEAN CELL VOLUME 84.1 fl (80.0-105.0); MEAN CORPUSCULAR HEMOGLOBIN 27.8 pg (25.0-35.0); MEAN PLATELET VOLUME 8.8 fl (7.0-11.0); RBC 4.1 10^6/uL (3.5-6.1); RED CELL DISTRIBUTION WIDTH 17.1 % (11.5-14.5); WHITE BLOOD COUNT 10.7 10^3/ul (4.5-11.0)
[2017-10-04 07:54] LABS: ALB/GLOB RATIO 1.2 (1.1-1.8); ALBUMIN 3.6 g/dL (3.0-4.8); ALT/SGPT 19 U/L (7-56); AST/SGOT 21 U/L (14-36); BLOOD UREA NITROGEN 10 mg/dL (7-21); CALCIUM 8.6 mg/dL (8.4-10.5); GFR AFRICAN-AMERICAN > 60; GFR NON-AFRICAN AMERICAN > 60
[2017-10-04] MEDS: Multivitamin Therapeutic Tab PO SCH (08:28)
--- NOTE | 2017-10-04 11:52 | PCM.PYCHPN ---
Psychiatric Progress Note - Psychiatric Progress Note Patient seen today, length of contact: 30min Patient Chief Complaint: "I am very depressed, I feel very dizzy" Problems Identified/Issues Discussed: Suicide/ homicide prevention, past psychiatric h/o, current psychiatric symptoms , medical problems, risk/benefits and alternatives of medications, medications compliance, coping strategies, substance abuse h/o, relapse prevention, importance of follow up with psychiatrist and therapist, discharge plan. Medical Problems: diabetes, HTN, seizure d/o? Diagnostic Results: 10/04/17 06:00 10/04/17 06:00 Lab Results 10/04/17 11:16: POC Glucose (mg/dL) 200 H 10/04/17 07:27: POC Glucose (mg/dL) 162 H 10/04/17 06:00: Sodium 139, Potassium 4.2, Chloride 99, Carbon Dioxide 27, Anion Gap 18, BUN 10, Creatinine 0.4 L, Est GFR ( Amer) > 60, Est GFR ( Non-Af Amer) > 60, Random Glucose 151 H, Calcium 8.6, Total Bilirubin < 0.1 L, AST 21, ALT 19, Alkaline Phosphatase 76, Total Protein 6.7, Albumin 3.6, Globulin 3.1, Albumin/Globulin Ratio 1.2 10/04/17 06:00: WBC 10.7, RBC 4.10, Hgb 11.4 L, Hct 34.5 L, MCV 84.1, MCH 27.8, MCHC 33.0, RDW 17.1 H, Plt Count 336, MPV 8.8 10/03/17 21:14: POC Glucose (mg/dL) 218 H 10/03/17 16:15: POC Glucose (mg/dL) 129 H 10/03/17 11:30: POC Glucose (mg/dL) 189 H 10/03/17 08:00: RPR Nonreactive 10/03/17 08:00: TSH 3rd Generation 3.32 10/03/17 08:00: Fasting Glucose 169 H, Triglycerides 250 H, Cholesterol 199, LDL Cholesterol Direct 150 H, HDL Cholesterol 27 L 10/03/17 07:31: POC Glucose (mg/dL) 147 H 10/02/17 22:37: Alcohol, Quantitative < 10 10/02/17 22:37: Salicylates < 1 L, Acetaminophen < 10.0 L 10/02/17 20:25: Urine Opiates Screen Negative, Urine Methadone Screen Negative, Ur Barbiturates Screen Negative, Ur Phencyclidine Scrn Negative, Ur Amphetamines Screen Negative, U Benzodiazepines Scrn Negative, U Oth Cocaine Metabols Negative, U Cannabinoids Screen Negative 10/02/17 20:25: Urine Color Dark yellow, Urine Appearance Slight-cloudy, Urine pH 5.5, Ur Specific [place] >= 1.030, Urine Protein Trace H, Urine Glucose (UA) Negative, Urine Ketones 40 H, Urine Blood Large H, Urine Nitrate Negative, Urine Bilirubin Negative, Urine Urobilinogen 0.2, Ur Leukocyte Esterase Negative , Urine RBC Tntc, Urine WBC Negative, Ur Epithelial Cells None, Urine HCG, Qual Negative 10/02/17 20:10: Sodium 142, Potassium 4.2, Chloride 101, Carbon Dioxide 21, Anion Gap 25 H, BUN 8, Creatinine 0.4 L, Est GFR ( Amer) > 60, Est GFR ( Non-Af Amer) > 60, Random Glucose 150 H, Calcium 9.4, Total Bilirubin 0.2, AST 30, ALT 24, Alkaline Phosphatase 74, Total Protein 7.6, Albumin 4.1, Globulin 3.5, Albumin/Globulin Ratio 1.2 10/02/17 20:10: WBC 12.0 H, RBC 4.30, Hgb 12.2, Hct 36.3, MCV 84.4, MCH 28.4, MCHC 33.6, RDW 17.2 H, Plt Count 121, MPV 9.5, Gran % 57.4, Lymph % (Auto) 32.9 , [place] % (Auto) 8.6 H, Eos % (Auto) 0.8 L, Baso % (Auto) 0.3, Gran # 6.89 H, Lymph # (Auto) 3.9 H, [place] # (Auto) 1.0 H, Eos # (Auto) 0.1, Baso # (Auto) 0.03 Vital Signs Temp Pulse Pulse Resp BP Pulse Ox 10/04/17 08:27 84 113/78 10/04/17 08:26 113/78 10/04/17 07:26 98.1 F 84 20 113/70 10/03/17 16:00 94 H 107/61 10/03/17 09:23 98 H 141/96 H 10/03/17 09:14 141/96 H 10/03/17 07:00 98.1 F 98 H 20 141/96 H 10/03/17 02:45 97.2 F L 86 86 17 133/95 H 98 10/03/17 01:15 98.1 F 88 18 146/78 99 10/03/17 01:00 98.1 F 88 18 146/78 99 10/02/17 23:00 84 18 152/74 H 99 10/02/17 21:00 95 H 18 148/82 100 10/02/17 19:26 98.2 F 100 H 20 144/87 98 DSM 5 Symptoms Update: shortly patient is 41 years old -[place] female, long and debilitating history of schizophrenia vs schizoaffective, treatment resistant, multiple admissions to the psychiatric inpatient unit in the past, including to this hospital, pt was d/c from [facility] Sep 16 2017, currently is followed by [facility] PACT team, pt is on clozaril and Haldol Dec. pt brought herself to the hospital looking for psychiatric admission for worsening of psychosis, self mutilating behavior, pt was not able to contract for safety in ED. patient expressed thoughts of harming herself with a plan to cut herself. Patient was seen and examined at the treatment team meeting today, pt presented with good personal hygiene, appeared to be drowsy, pt said "I feel so sad and depressed, I feel very dizzy", pt presented to be withdrawn, apathetic, disengaged. pt denied hearing voices "thank God I am not hearing voices now", pt said that she heard some voices prior to come to the hospital. as per staff pt self isolating, not participating in unit activities, not at her baseline yet. this commercial loan underwriter submitted most recent labs in Closaril Rems 10/04/17. no signs of agranulocytosis. pt tolerates meds well, no side effects observed or reported, AIMS 0, no EPS pt was not able to provide the details of her most recent hospitalization, pt was not able to tell what was the reason for her to overdose on Clozaril, but at the same time pt denied it was suicidal attempt, but as per PACT team pt was in ICU s/p suicidal attempt, pt still psychotic, delusional about imaginary "", at least for now pt is not obsessively drawing his pictures. Impression: schizophrenia r/o schizoaffective disorder Medication Change: Yes (celexa started) Medical Record Reviewed: Yes Consults ordered or reviewed: medical consult appreciated\\ Mental Status Examination - Cognitive Function Orientation: Person, Place Memory: Impaired Attention: Poor Concentration: Poor Association: Loose Fund of Knowledge: Poor - Mood Mood: Depressed - Affect Affect: Flat - Speech Speech: Soft - Formal Thought Process Formal Thought Process: Hallucinations, Delusions, Paranoia, Loosening of associations - Suicidal Ideation Suicidal Ideation: No - Homicidal Ideation Homicidal Ideation: No Goal/Treatment Plan - Goal/Treatment Plan Need for Continued Stay: Remain at risks for inpatient hospitalization, Severe depression anxiety, Discharge may exacerbated symptoms, Failed transitioning, Severe functional impairment Progress Toward Problem(s) and Goals/Treatment Plan: Milieu/structure/supportive therapy Medical consult appreciated, see medical team note for more detailed info SW consultation for discharge plan and social issues Med management Haldol decanoate 100 mg IM every monthly due is 10/06/2017 Clozaril 300 mg by mouth at the nighttime Cogentin 1 mg daily Iron pill 325 mg by mouth daily Folic acid 1 mg by mouth daily Haldol 5 mg by mouth daily Januvia 50 mg by mouth daily Metformin 1000 mg by mouth twice a day Multivitamins 1 daily Lipitor 20 mg at the nighttime Depakote 500 mg twice a day Patient is on Clozaril and blood need to be monitored weekly, due is this coming Monday. no signs of agranulocytosis. celexa 10mg po daily for depression/anxiety Family involvement Follow up on labs Will monitor closely Pt was educated about risk/benefits and alternatives of medications, coping strategies (safety plan, suicide prevention), relapse prevention, importance of follow up with psychiatrist and therapist, stay away from drugs/alcohol/smoking Estimated Date of D/C: 10/11/17
--- NOTE | 2017-10-04 16:06 | PN ---
DATE: 10/04/2017 SUBJECTIVE: I saw her sitting out of bed to chair. She is feeling a little bit off today. She is on Clozaril, Cogentin, Colace, Cozaar, Depakote, Desyrel, Ecotrin, Feosol, Glucophage, Haldol, Januvia, Lipitor, Maalox, Milk of Magnesia, Norvasc, Thera-Tabs and Tylenol. PHYSICAL EXAMINATION VITAL SIGNS: She has a 98.1 temperature, 84 pulse, 113/70 blood pressure, 20 respiratory rate. HEENT: Head is atraumatic, normocephalic. HEART: Regular rate. LUNGS: Decreased breath sounds, but clear. ABDOMEN: Soft, obese, nontender. EXTREMITIES: No edema. LABORATORY DATA: She has a 10.7 white count, the white count came down, it must have been from inflammation and stress yesterday; hemoglobin 11.4, hematocrit 34.5, platelets of 336. She has a 139 sodium, potassium of 4.2, BUN 10, creatinine 0.4, GFR is greater than 60, sugar is 162. Calcium is 8.6, total bilirubin is less than 11.1, AST is 21, ALT is 19, alkaline phosphatase 76, total protein 6.7. Urine was okay, not . Drug screen was okay. RPR was negative. She is being seen by Psychiatry. Her blood pressure also came down nicely, so we will check one more day of labs tomorrow and if she does well, we will put them on hold from moving forward. Start her on metformin and Januvia for the blood sugars, we will keep an eye on that too. She has suicidal ideation; auditory hallucinations; hypertension; leukocytosis, resolved and diabetes. Jason Contreras DO
[2017-10-04] MEDS: Divalproex 500 mg ER (ONCE DAILY formulation) PO SCH (21:02)
[2017-10-05 08:02] LABS: HEMOGLOBIN 10.9 g/dL (12.0-16.0); MEAN CELL VOLUME 84.1 fl (80.0-105.0); MEAN CORPUSCULAR HEMOGLOBIN 27.9 pg (25.0-35.0); MEAN CORPUSCULAR HGB CONC 33.1 g/dl (31.0-37.0); MEAN PLATELET VOLUME 8.7 fl (7.0-11.0); RBC 3.91 10^6/uL (3.5-6.1); RED CELL DISTRIBUTION WIDTH 17.2 % (11.5-14.5); WHITE BLOOD COUNT 9.7 10^3/ul (4.5-11.0)
[2017-10-05 08:25] LABS: ALB/GLOB RATIO 1.2 (1.1-1.8); ALBUMIN 3.8 g/dL (3.0-4.8); ALT/SGPT 27 U/L (7-56); AST/SGOT 25 U/L (14-36); BLOOD UREA NITROGEN 8 mg/dL (7-21); CALCIUM 8.6 mg/dL (8.4-10.5); GFR AFRICAN-AMERICAN > 60; GFR NON-AFRICAN AMERICAN > 60
[2017-10-05] MEDS: Multivitamin Therapeutic Tab PO SCH (08:56)
--- NOTE | 2017-10-05 13:53 | PN ---
DATE: 10/05/2017 SUBJECTIVE: I saw Gato resting in bed this morning. She tells me she slept well. She is hungry. She is . She is starting to feel better. No complaints to me this morning. She is on Celexa, Clozaril, Cogentin, Colace, Cozaar, Depakote, Desyrel, Ecotrin, Feosol, Glucophage, Haldol, Januvia, Lipitor, Maalox, milk of magnesia, Norvasc, Thera-Tabs, and Tylenol. PHYSICAL EXAMINATION: VITAL SIGNS: She has a 98 temperature, 78 pulse, 120/80 blood pressure, 20 respiratory rate. HEENT: Head is atraumatic, normocephalic. HEART: Regular rate. LUNGS: Decreased breath sounds but clear. ABDOMEN: Soft, obese, nontender. Positive bowel sounds. EXTREMITIES: No edema. LABORATORY DATA: She had a repeat blood test with 9.7 white count, 10.9 hemoglobin, 32.9 hematocrit with 314 platelets. Sodium 139, potassium 4.2, BUN is 8, creatinine 0.4, GFR is greater than 60, sugar is 145, calcium is 8.6. Total bilirubin is 0.1, AST is 25, ALT is 27, alkaline phosphatase 70, total protein 6.8, albumin is 3.8. The labs for the most part okay, I will repeat some. I will continue with aggressive treatment and care and psychology medicine adjustment. She is here for suicidal radiation, hypertension which is better, leukocytosis which is better. Blood sugars are better. Hopefully, she will continue treatment and care. We will follow. Jason Contreras DO MTDSantos
--- NOTE | 2017-10-05 15:45 | PCM.PYCHPN ---
Psychiatric Progress Note - Psychiatric Progress Note Patient seen today, length of contact: 30min Patient Chief Complaint: "I am very depressed, I feel very dizzy" Problems Identified/Issues Discussed: Suicide/ homicide prevention, past psychiatric h/o, current psychiatric symptoms , medical problems, risk/benefits and alternatives of medications, medications compliance, coping strategies, substance abuse h/o, relapse prevention, importance of follow up with psychiatrist and therapist, discharge plan. Medical Problems: diabetes, HTN, seizure d/o? Diagnostic Results: 10/04/17 06:00 10/04/17 06:00 Lab Results 10/04/17 11:16: POC Glucose (mg/dL) 200 H 10/04/17 07:27: POC Glucose (mg/dL) 162 H 10/04/17 06:00: Sodium 139, Potassium 4.2, Chloride 99, Carbon Dioxide 27, Anion Gap 18, BUN 10, Creatinine 0.4 L, Est GFR ( Amer) > 60, Est GFR ( Non-Af Amer) > 60, Random Glucose 151 H, Calcium 8.6, Total Bilirubin < 0.1 L, AST 21, ALT 19, Alkaline Phosphatase 76, Total Protein 6.7, Albumin 3.6, Globulin 3.1, Albumin/Globulin Ratio 1.2 10/04/17 06:00: WBC 10.7, RBC 4.10, Hgb 11.4 L, Hct 34.5 L, MCV 84.1, MCH 27.8, MCHC 33.0, RDW 17.1 H, Plt Count 336, MPV 8.8 10/03/17 21:14: POC Glucose (mg/dL) 218 H 10/03/17 16:15: POC Glucose (mg/dL) 129 H 10/03/17 11:30: POC Glucose (mg/dL) 189 H 10/03/17 08:00: RPR Nonreactive 10/03/17 08:00: TSH 3rd Generation 3.32 10/03/17 08:00: Fasting Glucose 169 H, Triglycerides 250 H, Cholesterol 199, LDL Cholesterol Direct 150 H, HDL Cholesterol 27 L 10/03/17 07:31: POC Glucose (mg/dL) 147 H 10/02/17 22:37: Alcohol, Quantitative < 10 10/02/17 22:37: Salicylates < 1 L, Acetaminophen < 10.0 L 10/02/17 20:25: Urine Opiates Screen Negative, Urine Methadone Screen Negative, Ur Barbiturates Screen Negative, Ur Phencyclidine Scrn Negative, Ur Amphetamines Screen Negative, U Benzodiazepines Scrn Negative, U Oth Cocaine Metabols Negative, U Cannabinoids Screen Negative 10/02/17 20:25: Urine Color Dark yellow, Urine Appearance Slight-cloudy, Urine pH 5.5, Ur Specific [place] >= 1.030, Urine Protein Trace H, Urine Glucose (UA) Negative, Urine Ketones 40 H, Urine Blood Large H, Urine Nitrate Negative, Urine Bilirubin Negative, Urine Urobilinogen 0.2, Ur Leukocyte Esterase Negative , Urine RBC Tntc, Urine WBC Negative, Ur Epithelial Cells None, Urine HCG, Qual Negative 10/02/17 20:10: Sodium 142, Potassium 4.2, Chloride 101, Carbon Dioxide 21, Anion Gap 25 H, BUN 8, Creatinine 0.4 L, Est GFR ( Amer) > 60, Est GFR ( Non-Af Amer) > 60, Random Glucose 150 H, Calcium 9.4, Total Bilirubin 0.2, AST 30, ALT 24, Alkaline Phosphatase 74, Total Protein 7.6, Albumin 4.1, Globulin 3.5, Albumin/Globulin Ratio 1.2 10/02/17 20:10: WBC 12.0 H, RBC 4.30, Hgb 12.2, Hct 36.3, MCV 84.4, MCH 28.4, MCHC 33.6, RDW 17.2 H, Plt Count 121, MPV 9.5, Gran % 57.4, Lymph % (Auto) 32.9 , [place] % (Auto) 8.6 H, Eos % (Auto) 0.8 L, Baso % (Auto) 0.3, Gran # 6.89 H, Lymph # (Auto) 3.9 H, [place] # (Auto) 1.0 H, Eos # (Auto) 0.1, Baso # (Auto) 0.03 Vital Signs Temp Pulse Pulse Resp BP Pulse Ox 10/04/17 08:27 84 113/78 10/04/17 08:26 113/78 10/04/17 07:26 98.1 F 84 20 113/70 10/03/17 16:00 94 H 107/61 10/03/17 09:23 98 H 141/96 H 10/03/17 09:14 141/96 H 10/03/17 07:00 98.1 F 98 H 20 141/96 H 10/03/17 02:45 97.2 F L 86 86 17 133/95 H 98 10/03/17 01:15 98.1 F 88 18 146/78 99 10/03/17 01:00 98.1 F 88 18 146/78 99 10/02/17 23:00 84 18 152/74 H 99 10/02/17 21:00 95 H 18 148/82 100 10/02/17 19:26 98.2 F 100 H 20 144/87 98 DSM 5 Symptoms Update: shortly patient is 41 years old -[place] female, long and debilitating history of schizophrenia vs schizoaffective, treatment resistant, multiple admissions to the psychiatric inpatient unit in the past, including to this hospital, pt was d/c from [facility] Sep 16 2017, currently is followed by [facility] PACT team, pt is on clozaril and Haldol Dec. pt brought herself to the hospital looking for psychiatric admission for worsening of psychosis, self mutilating behavior, pt was not able to contract for safety in ED. patient expressed thoughts of harming herself with a plan to cut herself. Patient was seen and examined in her room today, pt presented to be drowsy, laying with the blanket covering her face, pt was talking to this press writer through that blanket, pt presented to be disengaged and not willing to have conversation with this press writer, usually pt is very friendly. 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 as per staff pt self isolating, not participating in unit activities, not at her baseline yet. this press writer submitted most recent labs in Closaril [facility]ems 10/04/17. no signs of agranulocytosis. pt tolerates meds well, no side effects observed or reported, AIMS 0, no EPS pt was not able to provide the details of her most recent hospitalization, pt was not able to tell what was the reason for her to overdose on Clozaril, but at the same time pt denied it was suicidal attempt, but as per PACT team pt was in ICU s/p suicidal attempt, pt still psychotic, delusional about imaginary "", at least for now pt is not obsessively drawing his pictures. Impression: schizophrenia r/o schizoaffective disorder Medication Change: Yes (celexa started yesterday) Medical Record Reviewed: Yes Mental Status Examination - Cognitive Function Orientation: Person, Place Memory: Impaired Attention: Poor Concentration: Poor Association: Loose Fund of Knowledge: Poor - Mood Mood: Depressed - Affect Affect: Flat - Speech Speech: Soft - Formal Thought Process Formal Thought Process: Hallucinations, Delusions, Paranoia, Loosening of associations - Suicidal Ideation Suicidal Ideation: No - Homicidal Ideation Homicidal Ideation: No Goal/Treatment Plan - Goal/Treatment Plan Need for Continued Stay: Remain at risks for inpatient hospitalization, Severe depression anxiety, Discharge may exacerbated symptoms, Failed transitioning, Severe functional impairment Progress Toward Problem(s) and Goals/Treatment Plan: Milieu/structure/supportive therapy Medical consult appreciated, see medical team note for more detailed info SW consultation for discharge plan and social issues Med management Haldol decanoate 100 mg IM every monthly due is 10/06/2017 (ordered) Clozaril 300 mg by mouth at the nighttime Cogentin 1 mg daily Iron pill 325 mg by mouth daily Folic acid 1 mg by mouth daily Haldol 5 mg by mouth daily Januvia 50 mg by mouth daily Metformin 1000 mg by mouth twice a day Multivitamins 1 daily Lipitor 20 mg at the nighttime Depakote 500 mg twice a day Patient is on Clozaril and blood need to be monitored weekly, due is this coming Monday (ordered). no signs of agranulocytosis. celexa 10mg po daily for depression/anxiety Family involvement Follow up on labs Will monitor closely Pt was educated about risk/benefits and alternatives of medications, coping strategies (safety plan, suicide prevention), relapse prevention, importance of follow up with psychiatrist and therapist, stay away from drugs/alcohol/smoking Estimated Date of D/C: 10/11/17
[2017-10-05] MEDS: Divalproex 500 mg ER (ONCE DAILY formulation) PO SCH (21:03)
[2017-10-06 07:59] LABS: BASO # 0.04 K/mm3 (0.0-2.0); BASO % 0.4 % (0.0-3.0); EOS # 0.1 (0.0-0.7); EOS % 1.3 % (1.5-5.0); GRAN # 4.35 (1.4-6.5); GRAN % 39.1 % (50.0-68.0); HEMOGLOBIN 10.9 g/dL (12.0-16.0); LYMPH # 5.7 (1.2-3.4); MEAN CELL VOLUME 84.9 fl (80.0-105.0); MEAN CORPUSCULAR HEMOGLOBIN 28.4 pg (25.0-35.0); MEAN CORPUSCULAR HGB CONC 33.4 g/dl (31.0-37.0); MEAN PLATELET VOLUME 8.7 fl (7.0-11.0); MONO # 0.9 (0.1-0.6); MONO % 8.2 % (1.0-6.0); RBC 3.84 10^6/uL (3.5-6.1); RED CELL DISTRIBUTION WIDTH 17.1 % (11.5-14.5); WHITE BLOOD COUNT 11.1 10^3/ul (4.5-11.0)
[2017-10-06] MEDS ORDERED: Haloperidol Decanoate 100 mg/ml Inj IM ONE (08:00)
--- NOTE | 2017-10-06 08:29 | PN ---
DATE: 10/06/2017 SUBJECTIVE: I saw her resting comfortably in bed this morning. She is very lethargic and tired. She is awakable, but she is drowsy. She is on Celexa, Clozaril, Cogentin, Colace, Cozaar, Depakote, Desyrel, Ecotrin, Feosol, Glucophage, Haldol, Januvia, Lipitor, Maalox, milk of magnesia, Norvasc, Thera-Tab and Tylenol. She is arousable. She tells me she is in no pain. She is comfortable. She is smiling. She tells me she is feeling better, but she wants to go back to sleep. PHYSICAL EXAMINATION: VITAL SIGNS: She has 97.4 temp; 80 pulse; 105/69 blood pressure, also was 130/88 blood pressure. HEENT: Head is atraumatic, normocephalic. HEART: Regular rate. LUNGS: Decreased breath sounds, but clear. ABDOMEN: Soft. EXTREMITIES: No edema. LABORATORY DATA: Last labs on 10/05/2017, she has 9.7 white count, 10.9 hemoglobin and 314 platelets. Last blood sugar was 139. The chemistry on 10/05/2017 was very good. BUN 8, creatinine 0.4, GFR is greater than 60, sugar is 145, calcium is 8.6, total bili is 0.1, AST is 25, ALT is 27, alk phos 72, potassium is 4.2. ASSESSMENT AND PLAN: We will continue with the aggressive treatment and care as per Psychiatry medication management and changing and adjusting and I will follow along on Gato Garces who had suicidal ideation, auditory hallucinations, hypertension, leukocytosis, diabetes, which are definitely stable and improving. We will follow. Atif Contreras DO
[2017-10-06] MEDS: Multivitamin Therapeutic Tab PO SCH (09:23)
--- NOTE | 2017-10-06 12:38 | PCM.PYCHPN ---
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 who brought herself to the hospital looking for psychiatric admission for worsening of psychosis and thoughts of harming herself with a plan to cut herself. I am very familiar with patient from her numerous admissions to [facility] as well as [facility]. I reviewed recent staff notes which indicate that patient has been in good control, calm, cooperative and compliant with medications similar to her previous admissions. There have been no behavioral issues. Grooming is good and patient is oriented to month, year, location and circumstances. Patient feels like she is improving and denies any new concerns. Affect remains depressed, preoccupied and a little odd however she does not appear to be responding to internal stimuli. Patient also continues to deny any further hallucinations on the unit. She is sleeping well and denies any discomfort or pain. Patient appears comfortable, without any distress. Mostly keeps to herself and hasnt been very engaged on the unit yet. Insight and judgement continue to be impaired. Diagnostic Results: Schizoaffective Disorder Medication Change: No (celexa started yesterday) Medical Record Reviewed: Yes Mental Status Examination - Cognitive Function Orientation: Person, Place Memory: Impaired Attention: Poor Concentration: Poor Association: Loose Fund of Knowledge: Poor - Mood Mood: Depressed - Affect Affect: Flat - Speech Speech: Soft - Formal Thought Process Formal Thought Process: Hallucinations, Delusions, Paranoia, Loosening of associations - Suicidal Ideation Suicidal Ideation: No - Homicidal Ideation Homicidal Ideation: No Goal/Treatment Plan - Goal/Treatment Plan Need for Continued Stay: Remain at risks for inpatient hospitalization, Severe depression anxiety, Discharge may exacerbated symptoms, Failed transitioning, Severe functional impairment Progress Toward Problem(s) and Goals/Treatment Plan: * c/w current tx and plan * Clozaril 300 mg HS * Haldol 5 mg po daily, Haldol Dec 100 mg IM to be given today * Cogentin 1 mg HS * Depakote ER 1000 mg HS * Trazodone 50 mg HS prn and off-label for insomnia * Vitals reviewed and noted below: Selected Entries 10/06/17 06:48 Temperature 97.4 F L Pulse Rate 80 Respiratory 19 Rate Blood Pressure 105/69 * New labs reviewed and noted below: Laboratory Results - last 24 hr 10/05/17 10/05/17 10/06/17 16:09 21:05 07:10 WBC RBC Hgb Hct MCV MCH MCHC RDW Plt Count MPV Gran % Lymph % (Auto) [place] % (Auto) Eos % (Auto) Baso % (Auto) Gran # Lymph # (Auto) [place] # (Auto) Eos # (Auto) Baso # (Auto) POC Glucose (mg/dL) 125 H 230 H 139 H 10/06/17 10/06/17 07:45 11:24 WBC 11.1 H RBC 3.84 Hgb 10.9 L Hct 32.6 L MCV 84.9 MCH 28.4 MCHC 33.4 RDW 17.1 H Plt Count 300 MPV 8.7 Gran % 39.1 L Lymph % (Auto) 51.0 H [place] % (Auto) 8.2 H Eos % (Auto) 1.3 L Baso % (Auto) 0.4 Gran # 4.35 Lymph # (Auto) 5.7 H [place] # (Auto) 0.9 H Eos # (Auto) 0.1 Baso # (Auto) 0.04 POC Glucose (mg/dL) 222 H Estimated Date of D/C: 10/11/17
[2017-10-06] MEDS: Divalproex 500 mg ER (ONCE DAILY formulation) PO SCH (21:30)
[2017-10-07] MEDS: Multivitamin Therapeutic Tab PO SCH (09:37)
--- NOTE | 2017-10-07 10:18 | PCM.PYCHPN ---
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 who brought herself to the hospital looking for psychiatric admission for worsening of psychosis and thoughts of harming herself with a plan to cut herself. I am very familiar with patient from her numerous admissions to [facility] as well as [facility]. I reviewed recent staff notes which indicate that patient has been in good control, calm, cooperative and compliant with medications similar to her previous admissions. Grooming is good and patient is oriented to month, year, location and superficially to circumstances. Patient feels like she is improving and denies any new concerns. Affect is brighter and more pleasant today. She is smiling more readily and will likely approach baseline in a few days. Patient remains preoccupied and a little odd. She continues to deny any further hallucinations on the unit (though she still has been observed talking to herself). She is sleeping well and denies any discomfort or pain. Patient appears comfortable, without any distress. There were no behavioral issues overnight. Diagnostic Results: Schizoaffective Disorder Medication Change: No (celexa started yesterday) Medical Record Reviewed: Yes Mental Status Examination - Cognitive Function Orientation: Person, Place Memory: Impaired Attention: Poor Concentration: Poor Association: Loose Fund of Knowledge: Poor - Mood Mood: Depressed - Affect Affect: Flat - Speech Speech: Soft - Formal Thought Process Formal Thought Process: Hallucinations, Delusions, Paranoia, Loosening of associations - Suicidal Ideation Suicidal Ideation: No - Homicidal Ideation Homicidal Ideation: No Goal/Treatment Plan - Goal/Treatment Plan Need for Continued Stay: Remain at risks for inpatient hospitalization, Severe depression anxiety, Discharge may exacerbated symptoms, Failed transitioning, Severe functional impairment Progress Toward Problem(s) and Goals/Treatment Plan: * c/w current tx and plan * Clozaril 300 mg HS * Haldol 5 mg po daily, Haldol Dec 100 mg IM to be given today * Cogentin 1 mg HS * Depakote ER 1000 mg HS * Trazodone 50 mg HS prn and off-label for insomnia * Celexa 10 mg po daily for depression * Vitals reviewed and noted below: Selected Entries 10/07/17 07:00 Temperature 98.1 F Pulse Rate 79 Respiratory 20 Rate Blood Pressure 114/81 * New labs reviewed and noted below: Laboratory Results - last 24 hr 10/05/17 10/05/17 10/06/17 16:09 21:05 07:10 WBC RBC Hgb Hct MCV MCH MCHC RDW Plt Count MPV Gran % Lymph % (Auto) [place] % (Auto) Eos % (Auto) Baso % (Auto) Gran # Lymph # (Auto) [place] # (Auto) Eos # (Auto) Baso # (Auto) POC Glucose (mg/dL) 125 H 230 H 139 H 10/06/17 10/06/17 07:45 11:24 WBC 11.1 H RBC 3.84 Hgb 10.9 L Hct 32.6 L MCV 84.9 MCH 28.4 MCHC 33.4 RDW 17.1 H Plt Count 300 MPV 8.7 Gran % 39.1 L Lymph % (Auto) 51.0 H [place] % (Auto) 8.2 H Eos % (Auto) 1.3 L Baso % (Auto) 0.4 Gran # 4.35 Lymph # (Auto) 5.7 H [place] # (Auto) 0.9 H Eos # (Auto) 0.1 Baso # (Auto) 0.04 POC Glucose (mg/dL) 222 H Estimated Date of D/C: 10/11/17
--- NOTE | 2017-10-07 16:23 | PN ---
DATE: 10/07/2017 SUBJECTIVE: I saw Gato resting comfortably in bed in the room. She is sleepy today, but she wakes up easily in no acute distress. Feeling well, eating well and tells me she is starting to feel little bit better. She is on Celexa, Clozaril, Cogentin, Colace, Cozaar, Depakote, Desyrel, Ecotrin, Feosol, Glucophage, Haldol, Januvia, Lipitor, Maalox, milk of magnesia, Norvasc, Thera-Tabs and Tylenol. PHYSICAL EXAMINATION: VITAL SIGNS: Temperature 98.1, 79 pulse, 114/81 blood pressure, 20 respiratory rate. HEENT: Head is atraumatic, normocephalic. HEART: Regular rate. LUNGS: Clear to auscultation. ABDOMEN: Soft. EXTREMITIES: No edema. LABORATORY DATA: She has a 11.1 white count, 10.9 hemoglobin, 32.6 hematocrit with 300 platelets. She has a 139 sodium, potassium 4.2, BUN 8, creatinine 0.4, GFR is greater than 60, sugar is 125. Calcium is 8.6, total bili is 0.1, AST is 25, ALT is 27, alkaline phosphatase 72. ASSESSMENT AND PLAN: Overall, I think she is doing well. She is doing better. She has been seen by Psychiatry, they are adjusting her medications. We will continue to watch her and follow her. suicidal ideations, auditory hallucinations, hypertension, leukocytosis and diabetes. Jason Contreras DO MTDSantos
[2017-10-07] MEDS: Divalproex 500 mg ER (ONCE DAILY formulation) PO SCH (22:36)
[2017-10-08] MEDS: Multivitamin Therapeutic Tab PO SCH (09:13)
--- NOTE | 2017-10-08 10:35 | PN ---
DATE: 10/08/2017 SUBJECTIVE: I saw Gato in the psychiatric floor in her room, sleeping comfortably, easily arousable. No complaints. She is eating okay. She is participating a little bit. She is starting to feel better. MEDICATIONS: She is on Celexa, Clozaril, Cogentin, Colace, Cozaar, Depakote, Desyrel, Ecotrin, Feosol, Glucophage, Haldol, Januvia, Lipitor, Maalox, milk of magnesia, Norvasc, Thera-Tabs and Tylenol. PHYSICAL EXAMINATION: VITAL SIGNS: She has a 97.7 temp; 78 pulse; 143/92 blood pressure, I will adjust the blood pressure meds; 20 respiratory rate. HEENT: The head is atraumatic, normocephalic. HEART: Regular rate. LUNGS: Decreased breath sounds, but clear. ABDOMEN: Soft, obese. EXTREMITIES: No edema. ASSESSMENT AND PLAN: I will increase her Cozaar from 50 to 100. On 10/06/2017, she had good blood tests. Last blood sugar was 130. We will continue with aggressive treatment and care on Gato Garces. She had a suicidal ideation, auditory hallucinations, hypertension, leukocytosis and diabetes. I am going to increase her Cozaar to 100 today. We will follow up blood pressure. Encourage her to participate and eat well, take the medications. Jason Contreras DO
--- NOTE | 2017-10-08 10:55 | PCM.PYCHPN ---
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 who brought herself to the hospital looking for psychiatric admission for worsening of psychosis and thoughts of harming herself with a plan to cut herself. I am very familiar with patient from her numerous admissions to [facility] as well as [facility]. I reviewed recent staff notes which indicate that patient has been in good control, calm, cooperative and compliant with medications similar to her previous admissions. Grooming is good and patient is oriented to month, year, location and superficially to circumstances. Patient feels like she is improving and denies any new concerns. Affect remains brighter and more pleasant. She is smiling more readily and will likely approach baseline in a few days. Patient remains preoccupied and a little odd. She continues to deny any further hallucinations on the unit (though she still has been observed talking to herself). She is sleeping well and denies any discomfort or pain. Patient appears comfortable, without any distress. There were no behavioral issues over the weekend. Diagnostic Results: Schizoaffective Disorder Medication Change: No (celexa started yesterday) Medical Record Reviewed: Yes Mental Status Examination - Cognitive Function Orientation: Person, Place Memory: Impaired Attention: Poor Concentration: Poor Association: Loose Fund of Knowledge: Poor - Mood Mood: Depressed - Affect Affect: Flat - Speech Speech: Soft - Formal Thought Process Formal Thought Process: Hallucinations, Delusions, Paranoia, Loosening of associations - Suicidal Ideation Suicidal Ideation: No - Homicidal Ideation Homicidal Ideation: No Goal/Treatment Plan - Goal/Treatment Plan Need for Continued Stay: Remain at risks for inpatient hospitalization, Severe depression anxiety, Discharge may exacerbated symptoms, Failed transitioning, Severe functional impairment Progress Toward Problem(s) and Goals/Treatment Plan: * c/w current tx and plan * Clozaril 300 mg HS * Haldol 5 mg po daily, Haldol Dec 100 mg IM given on 10/06/17--patient tolerated very well * Cogentin 1 mg HS * Depakote ER 1000 mg HS, check VPA * Trazodone 50 mg HS prn and off-label for insomnia * Celexa 10 mg po daily for depression * Vitals reviewed and noted below: Selected Entries 10/08/17 07:04 Temperature 97.7 F Pulse Rate 78 Respiratory 20 Rate Blood Pressure 143/92 H * New labs reviewed and noted below: Laboratory Results - last 24 hr 10/05/17 10/05/17 10/06/17 16:09 21:05 07:10 WBC RBC Hgb Hct MCV MCH MCHC RDW Plt Count MPV Gran % Lymph % (Auto) [place] % (Auto) Eos % (Auto) Baso % (Auto) Gran # Lymph # (Auto) [place] # (Auto) Eos # (Auto) Baso # (Auto) POC Glucose (mg/dL) 125 H 230 H 139 H 10/06/17 10/06/17 07:45 11:24 WBC 11.1 H RBC 3.84 Hgb 10.9 L Hct 32.6 L MCV 84.9 MCH 28.4 MCHC 33.4 RDW 17.1 H Plt Count 300 MPV 8.7 Gran % 39.1 L Lymph % (Auto) 51.0 H [place] % (Auto) 8.2 H Eos % (Auto) 1.3 L Baso % (Auto) 0.4 Gran # 4.35 Lymph # (Auto) 5.7 H [place] # (Auto) 0.9 H Eos # (Auto) 0.1 Baso # (Auto) 0.04 POC Glucose (mg/dL) 222 H Estimated Date of D/C: 10/11/17
[2017-10-08] MEDS: Divalproex 500 mg ER (ONCE DAILY formulation) PO SCH (21:30)
[2017-10-09] MEDS: Multivitamin Therapeutic Tab PO SCH (09:51)
--- NOTE | 2017-10-09 10:23 | PCM.PYCHPN ---
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 who brought herself to the hospital looking for psychiatric admission for worsening of psychosis and thoughts of harming herself with a plan to cut herself. I am very familiar with patient from her numerous admissions to [facility] as well as [facility]. I reviewed recent staff notes which indicate that patient has been in good control, calm, cooperative and compliant with medications similar to her previous admissions. Grooming is good and patient is oriented to month, year, location and superficially to circumstances. Patient feels like she is improving and denies any new concerns. Affect remains brighter and more pleasant. She still appears preoccupied and a little odd but she is smiling more readily and is close to baseline. She continues to deny any further hallucinations on the unit (though she still has been observed talking to herself). Patient reports that she is sleeping well and denies any discomfort or pain. Patient appears comfortable, without any distress. Visible on the unit. There were no behavioral issues over the holiday weekend. Diagnostic Results: Schizoaffective Disorder Medication Change: No (celexa started yesterday) Medical Record Reviewed: Yes Mental Status Examination - Cognitive Function Orientation: Person, Place Memory: Impaired Attention: Poor Concentration: Poor Association: Loose Fund of Knowledge: Poor - Mood Mood: Depressed - Affect Affect: Flat - Speech Speech: Soft - Formal Thought Process Formal Thought Process: Hallucinations, Delusions, Paranoia, Loosening of associations - Suicidal Ideation Suicidal Ideation: No - Homicidal Ideation Homicidal Ideation: No Goal/Treatment Plan - Goal/Treatment Plan Need for Continued Stay: Remain at risks for inpatient hospitalization, Severe depression anxiety, Discharge may exacerbated symptoms, Failed transitioning, Severe functional impairment Progress Toward Problem(s) and Goals/Treatment Plan: * c/w current tx and plan * Clozaril 300 mg HS * Haldol 5 mg po daily, Haldol Dec 100 mg IM given on 10/06/17--patient tolerated very well * Cogentin 1 mg HS * Depakote ER 1000 mg HS 10/08/17 11:37 Valproic Acid 68 * Trazodone 50 mg HS prn and off-label for insomnia * Celexa 10 mg po daily for depression * Vitals reviewed and noted below: 10/09/17 06:34 Temperature 98.1 F Pulse Rate 80 Respiratory 20 Rate Blood Pressure 121/82 * New labs reviewed and noted below: Laboratory Results - last 24 hr 10/05/17 10/05/17 10/06/17 16:09 21:05 07:10 WBC RBC Hgb Hct MCV MCH MCHC RDW Plt Count MPV Gran % Lymph % (Auto) [place] % (Auto) Eos % (Auto) Baso % (Auto) Gran # Lymph # (Auto) [place] # (Auto) Eos # (Auto) Baso # (Auto) POC Glucose (mg/dL) 125 H 230 H 139 H 10/06/17 10/06/17 07:45 11:24 WBC 11.1 H RBC 3.84 Hgb 10.9 L Hct 32.6 L MCV 84.9 MCH 28.4 MCHC 33.4 RDW 17.1 H Plt Count 300 MPV 8.7 Gran % 39.1 L Lymph % (Auto) 51.0 H [place] % (Auto) 8.2 H Eos % (Auto) 1.3 L Baso % (Auto) 0.4 Gran # 4.35 Lymph # (Auto) 5.7 H [place] # (Auto) 0.9 H Eos # (Auto) 0.1 Baso # (Auto) 0.04 POC Glucose (mg/dL) 222 H Estimated Date of D/C: 10/11/17
--- NOTE | 2017-10-09 11:17 | PN ---
DATE: 10/09/2017 SUBJECTIVE: I saw her this morning. She is resting comfortably in bed. She is alert, talking with me. She is in good spirits. She feels much better. No bad thoughts at this time. She is eating. MEDICATIONS: She is on Celexa, Clozaril, Cogentin, Colace, Cozaar, Depakote, Desyrel, Ecotrin, Feosol, Glucophage, Haldol, Januvia, Lipitor, Maalox, milk of magnesia, Norvasc, Thera-Tabs and Tylenol. PHYSICAL EXAMINATION: VITAL SIGNS: 98.1 temp, 80 pulse, 121/82 blood pressure, 20 respiratory rate. HEENT: Head is atraumatic, normocephalic. HEART: Regular rate. LUNGS: Clear to auscultation. ABDOMEN: Soft, obese, nontender. EXTREMITIES: No edema. ASSESSMENT AND PLAN: She is doing quite well. Last labs on 10/06/2017. I will order labs tomorrow. Also last blood sugar was 136, although I do think she is doing a bit better, but she is still not where she needs to be as per Psychiatry. They are adjusting medications. I encouraged her to go to groups, take the medications and continue to try and feel better. She is doing that. We will follow. Check her labs tomorrow. Jason Contreras DO
[2017-10-09] MEDS: Divalproex 500 mg ER (ONCE DAILY formulation) PO SCH (21:17)
[2017-10-10 07:57] LABS: HEMOGLOBIN 11.8 g/dL (12.0-16.0); MEAN CELL VOLUME 84.2 fl (80.0-105.0); MEAN CORPUSCULAR HEMOGLOBIN 28.6 pg (25.0-35.0); MEAN PLATELET VOLUME 8.5 fl (7.0-11.0); RBC 4.12 10^6/uL (3.5-6.1); RED CELL DISTRIBUTION WIDTH 16.7 % (11.5-14.5); WHITE BLOOD COUNT 11.8 10^3/ul (4.5-11.0)
[2017-10-10 08:05] LABS: ALB/GLOB RATIO 1.2 (1.1-1.8); ALBUMIN 4.1 g/dL (3.0-4.8); ALT/SGPT 21 U/L (7-56); AST/SGOT 24 U/L (14-36); BLOOD UREA NITROGEN 8 mg/dL (7-21); GFR AFRICAN-AMERICAN > 60; GFR NON-AFRICAN AMERICAN > 60
[2017-10-10] MEDS: Multivitamin Therapeutic Tab PO SCH (09:00)
--- NOTE | 2017-10-10 09:15 | PN ---
DATE: 10/10/2017 SUBJECTIVE: I saw Gato this morning standing up in her room, doing well, improved. MEDICATIONS: She is on Celexa, Clozaril, Cogentin, Colace, Cozaar, Depakote, Desyrel, Ecotrin, Feosol, Glucophage, Haldol, Januvia, Lipitor, Maalox, milk of magnesia, Norvasc, Thera-Tabs and Tylenol. PHYSICAL EXAMINATION: VITAL SIGNS: 97.5 temp, 77 pulse, 99/65 blood pressure, 18 respiratory rate. HEENT: Head is atraumatic, normocephalic. HEART: Regular rate. LUNGS: Clear to auscultation. ABDOMEN: Soft, obese. EXTREMITIES: No edema. LABORATORY DATA: Labs on 10/10/2017, 11.8 white count, 11.8 hemoglobin, 34.7 hematocrit with 343 platelets, 141 sodium, potassium 4.5, BUN 8, creatinine 0.8, GFR is greater than 60, sugar is 129, calcium is 9, total bili is less than 0.01, AST is 24, ALT is 21, alk phos 78, total protein 7.5. ASSESSMENT AND PLAN: Overall, clinically she is definitely improving. A lot of blood in the urine. It could be a period, not . RPR is nonreactive. She is improving as per Psychiatry. We will follow. Continue with aggressive treatment and care. Gato Garces who had suicidal ideation, hypertensive, leukocytosis and diabetes and she is definitely improving clinically. Jason Contreras DO
--- NOTE | 2017-10-10 15:34 | PCM.PYCHPN ---
Psychiatric Progress Note - Psychiatric Progress Note Patient seen today, length of contact: 25 min Patient Chief Complaint: "I have been three times, it was long time ago" (pt is delusional, pt never been ) Problems Identified/Issues Discussed: Suicide/ homicide prevention, past psychiatric h/o, current psychiatric symptoms , medical problems, risk/benefits and alternatives of medications, medications compliance, coping strategies, substance abuse h/o, relapse prevention, importance of follow up with psychiatrist and therapist, discharge plan. Medical Problems: diabetes, HTN, seizure d/o? Diagnostic Results: 10/04/17 06:00 10/04/17 06:00 Lab Results 10/04/17 11:16: POC Glucose (mg/dL) 200 H 10/04/17 07:27: POC Glucose (mg/dL) 162 H 10/04/17 06:00: Sodium 139, Potassium 4.2, Chloride 99, Carbon Dioxide 27, Anion Gap 18, BUN 10, Creatinine 0.4 L, Est GFR ( Amer) > 60, Est GFR ( Non-Af Amer) > 60, Random Glucose 151 H, Calcium 8.6, Total Bilirubin < 0.1 L, AST 21, ALT 19, Alkaline Phosphatase 76, Total Protein 6.7, Albumin 3.6, Globulin 3.1, Albumin/Globulin Ratio 1.2 10/04/17 06:00: WBC 10.7, RBC 4.10, Hgb 11.4 L, Hct 34.5 L, MCV 84.1, MCH 27.8, MCHC 33.0, RDW 17.1 H, Plt Count 336, MPV 8.8 10/03/17 21:14: POC Glucose (mg/dL) 218 H 10/03/17 16:15: POC Glucose (mg/dL) 129 H 10/03/17 11:30: POC Glucose (mg/dL) 189 H 10/03/17 08:00: RPR Nonreactive 10/03/17 08:00: TSH 3rd Generation 3.32 10/03/17 08:00: Fasting Glucose 169 H, Triglycerides 250 H, Cholesterol 199, LDL Cholesterol Direct 150 H, HDL Cholesterol 27 L 10/03/17 07:31: POC Glucose (mg/dL) 147 H 10/02/17 22:37: Alcohol, Quantitative < 10 10/02/17 22:37: Salicylates < 1 L, Acetaminophen < 10.0 L 10/02/17 20:25: Urine Opiates Screen Negative, Urine Methadone Screen Negative, Ur Barbiturates Screen Negative, Ur Phencyclidine Scrn Negative, Ur Amphetamines Screen Negative, U Benzodiazepines Scrn Negative, U Oth Cocaine Metabols Negative, U Cannabinoids Screen Negative 10/02/17 20:25: Urine Color Dark yellow, Urine Appearance Slight-cloudy, Urine pH 5.5, Ur Specific [place] >= 1.030, Urine Protein Trace H, Urine Glucose (UA) Negative, Urine Ketones 40 H, Urine Blood Large H, Urine Nitrate Negative, Urine Bilirubin Negative, Urine Urobilinogen 0.2, Ur Leukocyte Esterase Negative , Urine RBC Tntc, Urine WBC Negative, Ur Epithelial Cells None, Urine HCG, Qual Negative 10/02/17 20:10: Sodium 142, Potassium 4.2, Chloride 101, Carbon Dioxide 21, Anion Gap 25 H, BUN 8, Creatinine 0.4 L, Est GFR ( Amer) > 60, Est GFR ( Non-Af Amer) > 60, Random Glucose 150 H, Calcium 9.4, Total Bilirubin 0.2, AST 30, ALT 24, Alkaline Phosphatase 74, Total Protein 7.6, Albumin 4.1, Globulin 3.5, Albumin/Globulin Ratio 1.2 10/02/17 20:10: WBC 12.0 H, RBC 4.30, Hgb 12.2, Hct 36.3, MCV 84.4, MCH 28.4, MCHC 33.6, RDW 17.2 H, Plt Count 121, MPV 9.5, Gran % 57.4, Lymph % (Auto) 32.9 , [place] % (Auto) 8.6 H, Eos % (Auto) 0.8 L, Baso % (Auto) 0.3, Gran # 6.89 H, Lymph # (Auto) 3.9 H, [place] # (Auto) 1.0 H, Eos # (Auto) 0.1, Baso # (Auto) 0.03 Vital Signs Temp Pulse Pulse Resp BP Pulse Ox 10/04/17 08:27 84 113/78 10/04/17 08:26 113/78 10/04/17 07:26 98.1 F 84 20 113/70 10/03/17 16:00 94 H 107/61 10/03/17 09:23 98 H 141/96 H 10/03/17 09:14 141/96 H 10/03/17 07:00 98.1 F 98 H 20 141/96 H 10/03/17 02:45 97.2 F L 86 86 17 133/95 H 98 10/03/17 01:15 98.1 F 88 18 146/78 99 10/03/17 01:00 98.1 F 88 18 146/78 99 10/02/17 23:00 84 18 152/74 H 99 10/02/17 21:00 95 H 18 148/82 100 10/02/17 19:26 98.2 F 100 H 20 144/87 98 Laboratory Results - last 72 hr 10/07/17 10/07/17 10/07/17 11:21 16:30 21:43 WBC RBC Hgb Hct MCV MCH MCHC RDW Plt Count MPV Sodium Potassium Chloride Carbon Dioxide Anion Gap BUN Creatinine Est GFR ( Amer) Est GFR (Non-Af Amer) POC Glucose (mg/dL) 240 H 119 H 171 H Random Glucose Calcium Total Bilirubin AST ALT Alkaline Phosphatase Total Protein Albumin Globulin Albumin/Globulin Ratio Valproic Acid 10/08/17 10/08/17 10/08/17 07:19 11:37 16:13 WBC RBC Hgb Hct MCV MCH MCHC RDW Plt Count MPV Sodium Potassium Chloride Carbon Dioxide Anion Gap BUN Creatinine Est GFR ( Amer) Est GFR (Non-Af Amer) POC Glucose (mg/dL) 130 H 127 H Random Glucose Calcium Total Bilirubin AST ALT Alkaline Phosphatase Total Protein Albumin Globulin Albumin/Globulin Ratio Valproic Acid 68 10/08/17 10/09/17 10/09/17 21:15 07:30 11:12 WBC RBC Hgb Hct MCV MCH MCHC RDW Plt Count MPV Sodium Potassium Chloride Carbon Dioxide Anion Gap BUN Creatinine Est GFR ( Amer) Est GFR (Non-Af Amer) POC Glucose (mg/dL) 203 H 136 H 209 H Random Glucose Calcium Total Bilirubin AST ALT Alkaline Phosphatase Total Protein Albumin Globulin Albumin/Globulin Ratio Valproic Acid 10/09/17 10/09/17 10/10/17 15:57 21:10 07:30 WBC 11.8 H RBC 4.12 Hgb 11.8 L Hct 34.7 L MCV 84.2 MCH 28.6 MCHC 34.0 RDW 16.7 H Plt Count 343 MPV 8.5 Sodium Potassium Chloride Carbon Dioxide Anion Gap BUN Creatinine Est GFR ( Amer) Est GFR (Non-Af Amer) POC Glucose (mg/dL) 197 H 178 H Random Glucose Calcium Total Bilirubin AST ALT Alkaline Phosphatase Total Protein Albumin Globulin Albumin/Globulin Ratio Valproic Acid 10/10/17 10/10/17 10/10/17 07:30 07:33 11:12 WBC RBC Hgb Hct MCV MCH MCHC RDW Plt Count MPV Sodium 141 Potassium 4.5 Chloride 101 Carbon Dioxide 27 Anion Gap 18 BUN 8 Creatinine 0.4 L Est GFR ( Amer) > 60 Est GFR (Non-Af Amer) > 60 POC Glucose (mg/dL) 129 H 182 H Random Glucose 146 H Calcium 9.0 Total Bilirubin < 0.1 L AST 24 ALT 21 Alkaline Phosphatase 78 Total Protein 7.5 Albumin 4.1 Globulin 3.4 Albumin/Globulin Ratio 1.2 Valproic Acid DSM 5 Symptoms Update: shortly patient is 41 years old -[place] female, long and debilitating history of schizophrenia vs schizoaffective, treatment resistant, multiple admissions to the psychiatric inpatient unit in the past, including to this hospital, pt was d/c from [facility] Sep 16 2017, currently is followed by [facility] PACT team, pt is on clozaril and Haldol Dec. pt brought herself to the hospital looking for psychiatric admission for worsening of psychosis, self mutilating behavior, pt was not able to contract for safety in ED. patient expressed thoughts of harming herself with a plan to cut herself. Patient was seen and examined at the treatment team meeting room, pt wears her wig, appeared calm, superficially "better" but during the interview pt was not able to present well, pt said that she was for 3 times, which is not true, pt sill obsessed with imaginary , as per staff pt is self isolating, not participating in unit activities. this copywriter submitted most recent labs in Closaril Rems 10/04/17. no signs of agranulocytosis. pt tolerates meds well, no side effects observed or reported, AIMS 0, no EPS haldol Dec was given on 10/06/17 100mg IM, next dose is 11/03/17 Impression: schizophrenia r/o schizoaffective disorder Medication Change: Yes (clozaril increased) Medical Record Reviewed: Yes Mental Status Examination - Cognitive Function Orientation: Person, Place Memory: Impaired Attention: Poor Concentration: Poor Association: Loose Fund of Knowledge: Poor - Mood Mood: Depressed - Affect Affect: Flat - Speech Speech: Soft - Formal Thought Process Formal Thought Process: Hallucinations, Delusions, Paranoia, Loosening of associations - Suicidal Ideation Suicidal Ideation: No - Homicidal Ideation Homicidal Ideation: No Goal/Treatment Plan - Goal/Treatment Plan Need for Continued Stay: Remain at risks for inpatient hospitalization, Severe depression anxiety, Discharge may exacerbated symptoms, Failed transitioning, Severe functional impairment Progress Toward Problem(s) and Goals/Treatment Plan: Milieu/structure/supportive therapy Medical consult appreciated, see medical team note for more detailed info SW consultation for discharge plan and social issues Med management Haldol decanoate 100 mg IM every monthly due is 10/06/2017 (ordered) Clozaril 350 mg by mouth at the nighttime Cogentin 1 mg daily Iron pill 325 mg by mouth daily Folic acid 1 mg by mouth daily Haldol 5 mg by mouth daily Januvia 50 mg by mouth daily Metformin 1000 mg by mouth twice a day Multivitamins 1 daily Lipitor 20 mg at the nighttime Depakote 500 mg twice a day Patient is on Clozaril and blood need to be monitored weekly, due is this coming Monday (ordered). no signs of agranulocytosis. celexa 10mg po daily for depression/anxiety Family involvement Follow up on labs Will monitor closely Pt was educated about risk/benefits and alternatives of medications, coping strategies (safety plan, suicide prevention), relapse prevention, importance of follow up with psychiatrist and therapist, stay away from drugs/alcohol/smoking Estimated Date of D/C: 10/12/17
--- NOTE | 2017-10-10 18:32 | PCM.BM ---
<Leda Ferrera - Last Filed: 10/10/17 18:27> Treatment Plan Problems - Problems identified on initial assessmt Command/Auditory Hallucinations Date Initiated: 10/03/17 (10/10/17 IMPROVED ,SOME SILLY AND INAPPROPRIATE AFFET AT TIMES) Time Initiated: 02:45 Assessment reference: NA Status: Active Priority: 1 Altered Thought Process Date Initiated: 10/03/17 (10/10/17 IMPRROVING) Time Initiated: 02:45 Assessment reference: NA Status: Active Priority: 2 Ineffective Coping Date Initiated: 10/03/17 (10/10/17 POOR COPING SKILLS REMAIN) Time Initiated: 02:45 Assessment reference: NA Status: Active Priority: 3 Social Isolation Date Initiated: 10/03/17 Time Initiated: 45 Date resolved: 10/10/17 Assessment reference: NA Status: Active Priority: 4 Treatment assets and liabiliti Patient Assests: adapts well, cooperative, self-reliant, ADL independent, negotiates basic needs, cognitively intact, good interpersonal skills Patient Liabilities: live alone, financial problems, poor support system - Milieu Protocol Maintain good personal hygiene: daily Encourage regular showers, every shift Remind patient to perform daily oral care, every shift Assist patient to perform ADL's Maintain personal safety: every shift Educate patient to report safety concerns to staff, every shift Monitor environment for contraband/sharps Medication safety: Monitor for expected outcome, potential side effects: every shift, Assess barriers to learning: every shift, Assess readiness for medication education: every shift Milieu Narrative: Milieu/structure/supportive therapy Medical consult appreciated, see medical team note for more detailed info SW consultation for discharge plan and social issues Med management Haldol decanoate 100 mg IM every monthly due is 10/06/2017 (ordered) Clozaril 350 mg by mouth at the nighttime Cogentin 1 mg daily Iron pill 325 mg by mouth daily Folic acid 1 mg by mouth daily Haldol 5 mg by mouth daily Januvia 50 mg by mouth daily Metformin 1000 mg by mouth twice a day Multivitamins 1 daily Lipitor 20 mg at the nighttime Depakote 500 mg twice a day Patient is on Clozaril and blood need to be monitored weekly, due is this coming Monday (ordered). no signs of agranulocytosis. celexa 10mg po daily for depression/anxiety Family involvement Follow up on labs Will monitor closely Pt was educated about risk/benefits and alternatives of medications, coping strategies (safety plan, suicide prevention), relapse prevention, importance of follow up with psychiatrist and therapist, stay away from drugs/alcohol/smoking Family Contact Family involvement: Family/SO is involved Family contact: Patient agrees to contact - Outside Agency [facility] Care involvment: Following patient during stay, Information-sharing Agency contact name: [facility] Agency contact number: [phone] - Goals for Treatment Patient goals for treatment: "To get better." Discharge/Continuing Care - Education Needs Education Needs: Patient Medication, Patient Diagnosis/Disease Process, Patient Coping Skills, Patient Anger Management skills, Patient Placement options, Patient Community resources, Patient Activities of Daily Living, Patient Pain, Patient Nutrition, Patient Uses of Medical Equipment, Patient Health Practices/ Safety, Patient Personal Hygiene/Grooming, Patient Aftercare Safety Plan - Discharge Discharge Criteria: Tolerates medication w/o severe side effects - Treatment Team Participation Patient/Family/SO Statement: Milieu/structure/supportive therapy Medical consult appreciated, see medical team note for more detailed info SW consultation for discharge plan and social issues Med management Haldol decanoate 100 mg IM every monthly due is 10/06/2017 (ordered) Clozaril 350 mg by mouth at the nighttime Cogentin 1 mg daily Iron pill 325 mg by mouth daily Folic acid 1 mg by mouth daily Haldol 5 mg by mouth daily Januvia 50 mg by mouth daily Metformin 1000 mg by mouth twice a day Multivitamins 1 daily Lipitor 20 mg at the nighttime Depakote 500 mg twice a day Patient is on Clozaril and blood need to be monitored weekly, due is this coming Monday (ordered). no signs of agranulocytosis. celexa 10mg po daily for depression/anxiety Family involvement Follow up on labs Will monitor closely Pt was educated about risk/benefits and alternatives of medications, coping strategies (safety plan, suicide prevention), relapse prevention, importance of follow up with psychiatrist and therapist, stay away from drugs/alcohol/smoking Treatment Plan Review - Problem Command/Auditory Hallucinations Time Initiated: 02:45 Altered Thought Process Time Initiated: 02:45 Ineffective Coping Time Initiated: 02:45 Social Isolation Time Initiated: 02:45 <Zonia José - Last Filed: 10/11/17 14:21> - Diagnosis (1) Schizoaffective disorder Status: Chronic Interventions: 10/11/17 14:21 pt is compliant with meds no side effects psychosis persistent, pt has chronic psychosis no agitation or aggression pt will be d/c on MondayOctober 13. Discussed with PACT team <Lucila Capone - Last Filed: 10/11/17 15:21>
[2017-10-10] MEDS: Divalproex 500 mg ER (ONCE DAILY formulation) PO SCH (21:16)
[2017-10-11 06:56] VITALS: RESP 20
[2017-10-11] MEDS: Multivitamin Therapeutic Tab PO SCH (08:54)
--- NOTE | 2017-10-11 10:08 | PN ---
DATE: 10/11/2017 SUBJECTIVE: I saw Gato resting comfortably in bed. She slept very well last night. She is tired this morning. She is on Celexa, Clozaril, Cogentin, Colace, Cozaar, Depakote, Ecotrin, Feosol, Glucophage, Haldol, Januvia, Lipitor, Maalox, milk of magnesia, Norvasc, potassium, Tylenol. She tells me she is trying her best. She is eating well. She is participating and she has better spirits of feeling better than when she came in. PHYSICAL EXAMINATION: VITAL SIGNS: 97.9 temp, 81 pulse, 115/79 blood pressure, 20 respiratory rate. HEENT: Her head is atraumatic, normocephalic. HEART: Regular rate. LUNGS: Clear to auscultation. ABDOMEN: Soft. EXTREMITIES: No edema. LABORATORY DATA: She has 11.8 white count, 11.8 hemoglobin and 343 platelets that was yesterday. SMA-20 was good. Last blood sugar was 138. ASSESSMENT AND PLAN: As per Psychiatry, continue to adjust medications. She is here for auditory hallucinations, hypertension, leukocytosis, diabetes. We will continue with the aggressive treatment and care as per Psychiatry. Continue to follow. Jason Contreras DO
--- NOTE | 2017-10-11 14:26 | PCM.PYCHPN ---
Psychiatric Progress Note - Psychiatric Progress Note Patient seen today, length of contact: 25 min Patient Chief Complaint: "I am alright" Problems Identified/Issues Discussed: Suicide/ homicide prevention, past psychiatric h/o, current psychiatric symptoms , medical problems, risk/benefits and alternatives of medications, medications compliance, coping strategies, substance abuse h/o, relapse prevention, importance of follow up with psychiatrist and therapist, discharge plan. Medical Problems: diabetes, HTN, seizure d/o? Diagnostic Results: 10/04/17 06:00 10/04/17 06:00 Lab Results 10/04/17 11:16: POC Glucose (mg/dL) 200 H 10/04/17 07:27: POC Glucose (mg/dL) 162 H 10/04/17 06:00: Sodium 139, Potassium 4.2, Chloride 99, Carbon Dioxide 27, Anion Gap 18, BUN 10, Creatinine 0.4 L, Est GFR ( Amer) > 60, Est GFR ( Non-Af Amer) > 60, Random Glucose 151 H, Calcium 8.6, Total Bilirubin < 0.1 L, AST 21, ALT 19, Alkaline Phosphatase 76, Total Protein 6.7, Albumin 3.6, Globulin 3.1, Albumin/Globulin Ratio 1.2 10/04/17 06:00: WBC 10.7, RBC 4.10, Hgb 11.4 L, Hct 34.5 L, MCV 84.1, MCH 27.8, MCHC 33.0, RDW 17.1 H, Plt Count 336, MPV 8.8 10/03/17 21:14: POC Glucose (mg/dL) 218 H 10/03/17 16:15: POC Glucose (mg/dL) 129 H 10/03/17 11:30: POC Glucose (mg/dL) 189 H 10/03/17 08:00: RPR Nonreactive 10/03/17 08:00: TSH 3rd Generation 3.32 10/03/17 08:00: Fasting Glucose 169 H, Triglycerides 250 H, Cholesterol 199, LDL Cholesterol Direct 150 H, HDL Cholesterol 27 L 10/03/17 07:31: POC Glucose (mg/dL) 147 H 10/02/17 22:37: Alcohol, Quantitative < 10 10/02/17 22:37: Salicylates < 1 L, Acetaminophen < 10.0 L 10/02/17 20:25: Urine Opiates Screen Negative, Urine Methadone Screen Negative, Ur Barbiturates Screen Negative, Ur Phencyclidine Scrn Negative, Ur Amphetamines Screen Negative, U Benzodiazepines Scrn Negative, U Oth Cocaine Metabols Negative, U Cannabinoids Screen Negative 10/02/17 20:25: Urine Color Dark yellow, Urine Appearance Slight-cloudy, Urine pH 5.5, Ur Specific [place] >= 1.030, Urine Protein Trace H, Urine Glucose (UA) Negative, Urine Ketones 40 H, Urine Blood Large H, Urine Nitrate Negative, Urine Bilirubin Negative, Urine Urobilinogen 0.2, Ur Leukocyte Esterase Negative , Urine RBC Tntc, Urine WBC Negative, Ur Epithelial Cells None, Urine HCG, Qual Negative 10/02/17 20:10: Sodium 142, Potassium 4.2, Chloride 101, Carbon Dioxide 21, Anion Gap 25 H, BUN 8, Creatinine 0.4 L, Est GFR ( Amer) > 60, Est GFR ( Non-Af Amer) > 60, Random Glucose 150 H, Calcium 9.4, Total Bilirubin 0.2, AST 30, ALT 24, Alkaline Phosphatase 74, Total Protein 7.6, Albumin 4.1, Globulin 3.5, Albumin/Globulin Ratio 1.2 10/02/17 20:10: WBC 12.0 H, RBC 4.30, Hgb 12.2, Hct 36.3, MCV 84.4, MCH 28.4, MCHC 33.6, RDW 17.2 H, Plt Count 121, MPV 9.5, Gran % 57.4, Lymph % (Auto) 32.9 , [place] % (Auto) 8.6 H, Eos % (Auto) 0.8 L, Baso % (Auto) 0.3, Gran # 6.89 H, Lymph # (Auto) 3.9 H, [place] # (Auto) 1.0 H, Eos # (Auto) 0.1, Baso # (Auto) 0.03 Vital Signs Temp Pulse Pulse Resp BP Pulse Ox 10/04/17 08:27 84 113/78 10/04/17 08:26 113/78 10/04/17 07:26 98.1 F 84 20 113/70 10/03/17 16:00 94 H 107/61 10/03/17 09:23 98 H 141/96 H 10/03/17 09:14 141/96 H 10/03/17 07:00 98.1 F 98 H 20 141/96 H 10/03/17 02:45 97.2 F L 86 86 17 133/95 H 98 10/03/17 01:15 98.1 F 88 18 146/78 99 10/03/17 01:00 98.1 F 88 18 146/78 99 10/02/17 23:00 84 18 152/74 H 99 10/02/17 21:00 95 H 18 148/82 100 10/02/17 19:26 98.2 F 100 H 20 144/87 98 Laboratory Results - last 72 hr 10/07/17 10/07/17 10/07/17 11:21 16:30 21:43 WBC RBC Hgb Hct MCV MCH MCHC RDW Plt Count MPV Sodium Potassium Chloride Carbon Dioxide Anion Gap BUN Creatinine Est GFR ( Amer) Est GFR (Non-Af Amer) POC Glucose (mg/dL) 240 H 119 H 171 H Random Glucose Calcium Total Bilirubin AST ALT Alkaline Phosphatase Total Protein Albumin Globulin Albumin/Globulin Ratio Valproic Acid 10/08/17 10/08/17 10/08/17 07:19 11:37 16:13 WBC RBC Hgb Hct MCV MCH MCHC RDW Plt Count MPV Sodium Potassium Chloride Carbon Dioxide Anion Gap BUN Creatinine Est GFR ( Amer) Est GFR (Non-Af Amer) POC Glucose (mg/dL) 130 H 127 H Random Glucose Calcium Total Bilirubin AST ALT Alkaline Phosphatase Total Protein Albumin Globulin Albumin/Globulin Ratio Valproic Acid 68 10/08/17 10/09/17 10/09/17 21:15 07:30 11:12 WBC RBC Hgb Hct MCV MCH MCHC RDW Plt Count MPV Sodium Potassium Chloride Carbon Dioxide Anion Gap BUN Creatinine Est GFR ( Amer) Est GFR (Non-Af Amer) POC Glucose (mg/dL) 203 H 136 H 209 H Random Glucose Calcium Total Bilirubin AST ALT Alkaline Phosphatase Total Protein Albumin Globulin Albumin/Globulin Ratio Valproic Acid 10/09/17 10/09/17 10/10/17 15:57 21:10 07:30 WBC 11.8 H RBC 4.12 Hgb 11.8 L Hct 34.7 L MCV 84.2 MCH 28.6 MCHC 34.0 RDW 16.7 H Plt Count 343 MPV 8.5 Sodium Potassium Chloride Carbon Dioxide Anion Gap BUN Creatinine Est GFR ( Amer) Est GFR (Non-Af Amer) POC Glucose (mg/dL) 197 H 178 H Random Glucose Calcium Total Bilirubin AST ALT Alkaline Phosphatase Total Protein Albumin Globulin Albumin/Globulin Ratio Valproic Acid 10/10/17 10/10/17 10/10/17 07:30 07:33 11:12 WBC RBC Hgb Hct MCV MCH MCHC RDW Plt Count MPV Sodium 141 Potassium 4.5 Chloride 101 Carbon Dioxide 27 Anion Gap 18 BUN 8 Creatinine 0.4 L Est GFR ( Amer) > 60 Est GFR (Non-Af Amer) > 60 POC Glucose (mg/dL) 129 H 182 H Random Glucose 146 H Calcium 9.0 Total Bilirubin < 0.1 L AST 24 ALT 21 Alkaline Phosphatase 78 Total Protein 7.5 Albumin 4.1 Globulin 3.4 Albumin/Globulin Ratio 1.2 Valproic Acid DSM 5 Symptoms Update: shortly patient is 41 years old -Burm[place] female, long and debilitating history of schizophrenia vs schizoaffective, treatment resistant, multiple admissions to the psychiatric inpatient unit in the past, including to this hospital, pt was d/c from [facility] Sep 16 2017, currently is followed by [facility] PACT team, pt is on clozaril and Haldol Dec. pt brought herself to the hospital looking for psychiatric admission for worsening of psychosis, self mutilating behavior, pt was not able to contract for safety in ED. patient expressed thoughts of harming herself with a plan to cut herself. Patient was seen and examined in her room, pt wears her wig, appeared to be sleepy, pt was talking to this bond underwriter with her eyes closed, pt still drawing imaginary "", multiple drawings on her shelf, as per staff no agitation or aggression, pt is self isolating, not participating in unit activities. this bond underwriter submitted most recent labs in Closaril [facility]ems 10/04/17. next labs no signs of agranulocytosis. pt tolerates meds well, no side effects observed or reported, AIMS 0, no EPS haldol Dec was given on 10/06/17 100mg IM, next dose is 11/03/17 Impression: schizophrenia r/o schizoaffective disorder Medication Change: Yes (clozaril increased 10/10/17) Medical Record Reviewed: Yes Mental Status Examination - Cognitive Function Orientation: Person, Place Memory: Impaired Attention: Poor Concentration: Poor Association: Loose Fund of Knowledge: Poor - Mood Mood: Depressed - Affect Affect: Flat - Speech Speech: Soft - Formal Thought Process Formal Thought Process: Hallucinations, Delusions, Paranoia, Loosening of associations - Suicidal Ideation Suicidal Ideation: No - Homicidal Ideation Homicidal Ideation: No Goal/Treatment Plan - Goal/Treatment Plan Need for Continued Stay: Remain at risks for inpatient hospitalization, Severe depression anxiety, Discharge may exacerbated symptoms, Failed transitioning, Severe functional impairment Progress Toward Problem(s) and Goals/Treatment Plan: Milieu/structure/supportive therapy Medical consult appreciated, see medical team note for more detailed info SW consultation for discharge plan and social issues Med management Haldol decanoate 100 mg IM every monthly due is 10/06/2017 (ordered) Clozaril 350 mg by mouth at the nighttime Cogentin 1 mg daily Iron pill 325 mg by mouth daily Folic acid 1 mg by mouth daily Haldol 5 mg by mouth daily Januvia 50 mg by mouth daily Metformin 1000 mg by mouth twice a day Multivitamins 1 daily Lipitor 20 mg at the nighttime Depakote 500 mg twice a day Patient is on Clozaril and blood need to be monitored weekly, due is this coming Monday (ordered). no signs of agranulocytosis. celexa 10mg po daily for depression/anxiety Family involvement Follow up on labs Will monitor closely Pt was educated about risk/benefits and alternatives of medications, coping strategies (safety plan, suicide prevention), relapse prevention, importance of follow up with psychiatrist and therapist, stay away from drugs/alcohol/smoking discussed with PACT team, preliminary d/c 10/13/17 Estimated Date of D/C: 10/13/17
[2017-10-11] MEDS: Divalproex 500 mg ER (ONCE DAILY formulation) PO SCH (21:15)
[2017-10-12] MEDS: Multivitamin Therapeutic Tab PO SCH (08:30)
--- NOTE | 2017-10-12 13:27 | PCM.PYCHPN ---
Psychiatric Progress Note - Psychiatric Progress Note Patient seen today, length of contact: 25 min Patient Chief Complaint: "I am alright" Problems Identified/Issues Discussed: Suicide/ homicide prevention, past psychiatric h/o, current psychiatric symptoms , medical problems, risk/benefits and alternatives of medications, medications compliance, coping strategies, substance abuse h/o, relapse prevention, importance of follow up with psychiatrist and therapist, discharge plan. Medical Problems: diabetes, HTN, seizure d/o? Diagnostic Results: 10/04/17 06:00 10/04/17 06:00 Lab Results 10/04/17 11:16: POC Glucose (mg/dL) 200 H 10/04/17 07:27: POC Glucose (mg/dL) 162 H 10/04/17 06:00: Sodium 139, Potassium 4.2, Chloride 99, Carbon Dioxide 27, Anion Gap 18, BUN 10, Creatinine 0.4 L, Est GFR ( Amer) > 60, Est GFR ( Non-Af Amer) > 60, Random Glucose 151 H, Calcium 8.6, Total Bilirubin < 0.1 L, AST 21, ALT 19, Alkaline Phosphatase 76, Total Protein 6.7, Albumin 3.6, Globulin 3.1, Albumin/Globulin Ratio 1.2 10/04/17 06:00: WBC 10.7, RBC 4.10, Hgb 11.4 L, Hct 34.5 L, MCV 84.1, MCH 27.8, MCHC 33.0, RDW 17.1 H, Plt Count 336, MPV 8.8 10/03/17 21:14: POC Glucose (mg/dL) 218 H 10/03/17 16:15: POC Glucose (mg/dL) 129 H 10/03/17 11:30: POC Glucose (mg/dL) 189 H 10/03/17 08:00: RPR Nonreactive 10/03/17 08:00: TSH 3rd Generation 3.32 10/03/17 08:00: Fasting Glucose 169 H, Triglycerides 250 H, Cholesterol 199, LDL Cholesterol Direct 150 H, HDL Cholesterol 27 L 10/03/17 07:31: POC Glucose (mg/dL) 147 H 10/02/17 22:37: Alcohol, Quantitative < 10 10/02/17 22:37: Salicylates < 1 L, Acetaminophen < 10.0 L 10/02/17 20:25: Urine Opiates Screen Negative, Urine Methadone Screen Negative, Ur Barbiturates Screen Negative, Ur Phencyclidine Scrn Negative, Ur Amphetamines Screen Negative, U Benzodiazepines Scrn Negative, U Oth Cocaine Metabols Negative, U Cannabinoids Screen Negative 10/02/17 20:25: Urine Color Dark yellow, Urine Appearance Slight-cloudy, Urine pH 5.5, Ur Specific [place] >= 1.030, Urine Protein Trace H, Urine Glucose (UA) Negative, Urine Ketones 40 H, Urine Blood Large H, Urine Nitrate Negative, Urine Bilirubin Negative, Urine Urobilinogen 0.2, Ur Leukocyte Esterase Negative , Urine RBC Tntc, Urine WBC Negative, Ur Epithelial Cells None, Urine HCG, Qual Negative 10/02/17 20:10: Sodium 142, Potassium 4.2, Chloride 101, Carbon Dioxide 21, Anion Gap 25 H, BUN 8, Creatinine 0.4 L, Est GFR ( Amer) > 60, Est GFR ( Non-Af Amer) > 60, Random Glucose 150 H, Calcium 9.4, Total Bilirubin 0.2, AST 30, ALT 24, Alkaline Phosphatase 74, Total Protein 7.6, Albumin 4.1, Globulin 3.5, Albumin/Globulin Ratio 1.2 10/02/17 20:10: WBC 12.0 H, RBC 4.30, Hgb 12.2, Hct 36.3, MCV 84.4, MCH 28.4, MCHC 33.6, RDW 17.2 H, Plt Count 121, MPV 9.5, Gran % 57.4, Lymph % (Auto) 32.9 , [place] % (Auto) 8.6 H, Eos % (Auto) 0.8 L, Baso % (Auto) 0.3, Gran # 6.89 H, Lymph # (Auto) 3.9 H, [place] # (Auto) 1.0 H, Eos # (Auto) 0.1, Baso # (Auto) 0.03 Vital Signs Temp Pulse Pulse Resp BP Pulse Ox 10/04/17 08:27 84 113/78 10/04/17 08:26 113/78 10/04/17 07:26 98.1 F 84 20 113/70 10/03/17 16:00 94 H 107/61 10/03/17 09:23 98 H 141/96 H 10/03/17 09:14 141/96 H 10/03/17 07:00 98.1 F 98 H 20 141/96 H 10/03/17 02:45 97.2 F L 86 86 17 133/95 H 98 10/03/17 01:15 98.1 F 88 18 146/78 99 10/03/17 01:00 98.1 F 88 18 146/78 99 10/02/17 23:00 84 18 152/74 H 99 10/02/17 21:00 95 H 18 148/82 100 10/02/17 19:26 98.2 F 100 H 20 144/87 98 Laboratory Results - last 72 hr 10/07/17 10/07/17 10/07/17 11:21 16:30 21:43 WBC RBC Hgb Hct MCV MCH MCHC RDW Plt Count MPV Sodium Potassium Chloride Carbon Dioxide Anion Gap BUN Creatinine Est GFR ( Amer) Est GFR (Non-Af Amer) POC Glucose (mg/dL) 240 H 119 H 171 H Random Glucose Calcium Total Bilirubin AST ALT Alkaline Phosphatase Total Protein Albumin Globulin Albumin/Globulin Ratio Valproic Acid 10/08/17 10/08/17 10/08/17 07:19 11:37 16:13 WBC RBC Hgb Hct MCV MCH MCHC RDW Plt Count MPV Sodium Potassium Chloride Carbon Dioxide Anion Gap BUN Creatinine Est GFR ( Amer) Est GFR (Non-Af Amer) POC Glucose (mg/dL) 130 H 127 H Random Glucose Calcium Total Bilirubin AST ALT Alkaline Phosphatase Total Protein Albumin Globulin Albumin/Globulin Ratio Valproic Acid 68 10/08/17 10/09/17 10/09/17 21:15 07:30 11:12 WBC RBC Hgb Hct MCV MCH MCHC RDW Plt Count MPV Sodium Potassium Chloride Carbon Dioxide Anion Gap BUN Creatinine Est GFR ( Amer) Est GFR (Non-Af Amer) POC Glucose (mg/dL) 203 H 136 H 209 H Random Glucose Calcium Total Bilirubin AST ALT Alkaline Phosphatase Total Protein Albumin Globulin Albumin/Globulin Ratio Valproic Acid 10/09/17 10/09/17 10/10/17 15:57 21:10 07:30 WBC 11.8 H RBC 4.12 Hgb 11.8 L Hct 34.7 L MCV 84.2 MCH 28.6 MCHC 34.0 RDW 16.7 H Plt Count 343 MPV 8.5 Sodium Potassium Chloride Carbon Dioxide Anion Gap BUN Creatinine Est GFR ( Amer) Est GFR (Non-Af Amer) POC Glucose (mg/dL) 197 H 178 H Random Glucose Calcium Total Bilirubin AST ALT Alkaline Phosphatase Total Protein Albumin Globulin Albumin/Globulin Ratio Valproic Acid 10/10/17 10/10/17 10/10/17 07:30 07:33 11:12 WBC RBC Hgb Hct MCV MCH MCHC RDW Plt Count MPV Sodium 141 Potassium 4.5 Chloride 101 Carbon Dioxide 27 Anion Gap 18 BUN 8 Creatinine 0.4 L Est GFR ( Amer) > 60 Est GFR (Non-Af Amer) > 60 POC Glucose (mg/dL) 129 H 182 H Random Glucose 146 H Calcium 9.0 Total Bilirubin < 0.1 L AST 24 ALT 21 Alkaline Phosphatase 78 Total Protein 7.5 Albumin 4.1 Globulin 3.4 Albumin/Globulin Ratio 1.2 Valproic Acid DSM 5 Symptoms Update: shortly patient is 41 years old -[place] female, long and debilitating history of schizophrenia vs schizoaffective, treatment resistant, multiple admissions to the psychiatric inpatient unit in the past, including to this hospital, pt was d/c from [facility] Sep 16 2017, currently is followed by [facility] PACT team, pt is on clozaril and Haldol Dec. pt brought herself to the hospital looking for psychiatric admission for worsening of psychosis, self mutilating behavior, pt was not able to contract for safety in ED. patient expressed thoughts of harming herself with a plan to cut herself. Patient was seen and examined in her room, pt wears her wig, appeared to be sleepy, pt was talking to this telegraphic typewriter operator chief with her eyes closed, pt still drawing imaginary "", multiple drawings on her shelf, as per staff no agitation or aggression, pt is self isolating, not participating in unit activities. this telegraphic typewriter operator chief submitted most recent labs in Closaril [facility] 10/04/17. next labs no signs of agranulocytosis. pt tolerates meds well, no side effects observed or reported, AIMS 0, no EPS haldol Dec was given on 10/06/17 100mg IM, next dose is 11/03/17 Impression: schizophrenia r/o schizoaffective disorder Medication Change: Yes (celexa 20mg po daily) Medical Record Reviewed: Yes Mental Status Examination - Cognitive Function Orientation: Person, Place Memory: Impaired Attention: Poor (seems baseline) Concentration: Poor (seems baseline) Association: Loose Fund of Knowledge: Poor - Mood Mood: Depressed ("I am alright") - Affect Affect: Constricted (but reactive) - Speech Speech: Soft - Formal Thought Process Formal Thought Process: Hallucinations (denied), Delusions (erotomanic, but it is chronic ), Paranoia (denied), Loosening of associations (chronic) - Suicidal Ideation Suicidal Ideation: No - Homicidal Ideation Homicidal Ideation: No Goal/Treatment Plan - Goal/Treatment Plan Need for Continued Stay: Remain at risks for inpatient hospitalization, Severe depression anxiety, Discharge may exacerbated symptoms, Failed transitioning, Severe functional impairment Progress Toward Problem(s) and Goals/Treatment Plan: Milieu/structure/supportive therapy Medical consult appreciated, see medical team note for more detailed info SW consultation for discharge plan and social issues Med management Haldol decanoate 100 mg IM every monthly due is 10/06/2017 (ordered) Clozaril 350 mg by mouth at the nighttime for psychosis Cogentin 1 mg daily Iron pill 325 mg by mouth daily Folic acid 1 mg by mouth daily Haldol 5 mg by mouth daily for psychosis Januvia 50 mg by mouth daily Metformin 1000 mg by mouth twice a day Multivitamins 1 daily Lipitor 20 mg at the nighttime Depakote 500 mg twice a day for mood stabilization Patient is on Clozaril and blood need to be monitored weekly, due is this coming Monday (ordered). no signs of agranulocytosis. celexa 20mg po daily for depression/anxiety Family involvement Follow up on labs Will monitor closely Pt was educated about risk/benefits and alternatives of medications, coping strategies (safety plan, suicide prevention), relapse prevention, importance of follow up with psychiatrist and therapist, stay away from drugs/alcohol/smoking discussed with PACT team, preliminary d/c 10/13/17 Estimated Date of D/C: 10/13/17
--- NOTE | 2017-10-12 13:55 | PN ---
DATE: 10/12/2017 SUBJECTIVE: I saw her resting comfortably in bed this morning. She is in no distress. She slept well. Good spirits. Trying in the Psych Unit, participating, taking her meds herself, and she is feeling better. She is on Celexa, Clozaril, Cogentin, Colace, Cozaar, Depakote, Ecotrin, Feosol, Glucophage, Haldol, Januvia, Lipitor, Maalox, Milk of Magnesia, Norvasc, Thera-Tabs, and Tylenol. PHYSICAL EXAMINATION: VITAL SIGNS: Temp 97.5, pulse 82, blood pressure 102/67, respiratory rate 20. HEENT: Head is atraumatic, normocephalic. HEART: Regular rate. LUNGS: Clear to auscultation. ABDOMEN: Soft, nontender. Positive bowel sounds. EXTREMITIES: No edema. LABORATORY DATA: She has a 11.8 white count on 10/10/2017, 11.8 hemoglobin, and 343 platelets. Last blood sugar was 123 on the 10/10/2017. She did fairly well with her SMA-20. ASSESSMENT AND PLAN: For the most part, I think she is improving slowly as per Psychiatry with adjustment of her medications. She had severe depression, anxiety, hypertension, leukocytosis, and diabetes. We will continue to monitor her. Jason Contreras DO
[2017-10-12] MEDS: Divalproex 500 mg ER (ONCE DAILY formulation) PO SCH (21:20)
[2017-10-13 07:08] VITALS: PULSE 77; TEMP 97.9
[2017-10-13 07:42] LABS: BASO # 0.03 K/mm3 (0.0-2.0); BASO % 0.3 % (0.0-3.0); EOS # 0.1 (0.0-0.7); EOS % 1.4 % (1.5-5.0); GRAN # 3.94 (1.4-6.5); GRAN % 39.1 % (50.0-68.0); HEMOGLOBIN 11.2 g/dL (12.0-16.0); LYMPH # 5.1 (1.2-3.4); LYMPH % 50.4 % (22.0-35.0); MEAN CELL VOLUME 84.3 fl (80.0-105.0); MEAN CORPUSCULAR HEMOGLOBIN 27.9 pg (25.0-35.0); MEAN CORPUSCULAR HGB CONC 33.1 g/dl (31.0-37.0); MEAN PLATELET VOLUME 8.5 fl (7.0-11.0); MONO # 0.9 (0.1-0.6); MONO % 8.8 % (1.0-6.0); RBC 4.01 10^6/uL (3.5-6.1); RED CELL DISTRIBUTION WIDTH 16.7 % (11.5-14.5); WHITE BLOOD COUNT 10.1 10^3/ul (4.5-11.0)
[2017-10-13] MEDS: Multivitamin Therapeutic Tab PO SCH (08:44)
[2017-10-13 08:48] VITALS: BP 110/72
--- NOTE | 2017-10-13 13:47 | PN ---
DATE: 10/13/2017 SUBJECTIVE: I saw Gato in her room in the Psychiatric floor. She is resting comfortably. She is sleeping. She tells me she is doing well with no complaints to me. She is eating. She is trying to participate. She is taking her medication. PHYSICAL EXAMINATION: VITAL SIGNS: She has a 97.9 temperature, 77 pulse, 101/69 blood pressure, 20 respiratory rate. HEENT: Head is atraumatic, normocephalic. HEART: Regular rate. LUNGS: Decreased breath sounds, but clear. ABDOMEN: Soft, obese. EXTREMITIES: No edema. MEDICATIONS: She is currently on Celexa, Clozaril, Cogentin, Colace, Cozaar, Depakote, Ecotrin, Feosol, Glucophage, Haldol, Januvia, Lipitor, Milk of Magnesia, Maalox, Norvasc, Thera-Tabs, Tylenol. LABORATORY DATA: Last labs were today. She has a 10.1 white count, 11.2 hemoglobin, 33.8 hematocrit with a 329 platelets. She has a 113 sugar. Overall, I encouraged her to participate, continue with her medications as per Psychiatry. She has multiple issues, suicidal ideation, auditory hallucinations, hypertension, leukocytosis and diabetes. We will follow. Thank you very much. Jason Contreras DO
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
== END 2017-10-13 13:01 | disposition home or self-care (01) | DRG 885 ==
LOC: ED 18:42 → ERH 10-03 01:21 → PSYC 10-03 02:40
PROVIDERS: ADMIT Psychiatry & Neurology Psychiatry; ATTEND Psychiatry & Neurology Psychiatry
PROC: GZ3ZZZZ Medication Management (ICD-10-PCS; principal; 2017-10-03)
DX: F25.9 Schizoaffective disorder, unspecified (principal); R45.851 Suicidal ideations; I10 Essential (primary) hypertension; F41.9 Anxiety disorder, unspecified; E11.9 Type 2 diabetes mellitus without complications; Z87.891 Personal history of nicotine dependence

== ENCOUNTER 2017-10-22 17:43 | Inpatient (IN) | payer MEDICARE, MEDICAID ==
[2017-10-22 17:47] VITALS: BMI 28.8
--- NOTE | 2017-10-22 17:52 | ED PDOC ---
Arrival/HPI - General Time Seen by Provider: 10/22/17 17:46 Historian: Patient - History of Present Illness Narrative History of Present Illness (Text): 10/22/17 17:48 41 year old female pmh including htn/dm, psychiatric history including bipolar/ schizophrenia/schizoaffective, nkda, biba, complaining of depression/suicidal ideation x 1 day. Pt. stated that she has not been taking her psychiatric medication as her voices inside her head telling her not to take it, been very depress and suicidal thought about cutting herself, no numbness or tingling, no rash, no night sweat, no dizziness, no other medical or psychological complaints. Past Medical History - Provider Review Nursing Documentation Reviewed: Yes - Past History Past History: Non-Contributing - Infectious Disease Hx of Infectious Diseases: None - Tetanus Immunization Tetanus Immunization: Unknown - Cardiac Hx Hypertension: Yes - Pulmonary Hx Tuberculosis: No - Neurological Hx Seizures: Yes - HEENT Hx HEENT Disorder: No - Endocrine/Metabolic Hx Endocrine Disorders: Yes Hx Diabetes Mellitus Type 2: Yes - Hematological/Oncological Hx Anemia: Yes - Integumentary Hx Dermatological Disorder: No - Musculoskeletal/Rheumatological Hx Musculoskeletal Disorders: No - Gastrointestinal Hx Gastrointestinal Disorders: No - Genitourinary/Gynecological Hx Sexually Transmitted Diseases: No - Psychiatric Hx Anxiety: Yes Hx Bipolar Disorder: Yes Hx Depression: Yes Hx Schizophrenia: Yes Hx Substance Use: No - Anesthesia Hx Anesthesia: No - Suicidal Assessment Feels Threatened In Home Enviroment: No Family/Social History - Physician Review Nursing Documentation Reviewed: Yes Family/Social History: Unknown Family HX Smoking Status: Former Smoker Hx Alcohol Use: No Hx Substance Use: No Hx Substance Use Treatment: No Allergies/Home Meds Allergies/Adverse Reactions: Allergies No Known Allergies Allergy (Verified 10/22/17 23:52) Home Medications: Home Meds Medication Instructions Recorded Confirmed Clozaril 300 mg PO HS 10/23/17 10/23/17 Review of Systems - Review of Systems Constitutional: absent: Fatigue, Fevers Eyes: absent: Vision Changes ENT: absent: Hearing Changes Respiratory: absent: SOB, Cough Cardiovascular: absent: Chest Pain Gastrointestinal: absent: Abdominal Pain, Nausea, Vomiting Skin: absent: Rash, Pruritis Neurological: absent: Headache, Dizziness Psychiatric: Depression, Suicidal Ideation. absent: Anxiety Physical Exam Vital Signs Temp Pulse Resp BP Pulse Ox 10/22/17 17:44 98.2 F 98 H 18 125/85 99 - Systems Exam Head: Present: Atraumatic, Normocephalic. No: Tenderness, Contusion, Swelling, Ecchymosis, Abrasion, Laceration, Other Pupils: Present: PERRL Extroacular Muscles: Present: EOMI Conjunctiva: Present: Normal Ears: Present: NORMAL TM, Normal Canal. No: Erythema Mouth: Present: Moist Mucous Membranes Pharnyx: No: ERYTHEMA, EXUDATE, TONSILS ENLARGED Nose (Internal): Present: Normal Inspection, No Active Bleeding. No: Rhinorrhea , Septal Hematoma, Epistaxis Neck: Present: Normal Range of Motion, Trachea Midline. No: Meningeal Signs, MIDLINE TENDERNESS, Paraspinal Tenderness, Lymphadenopathy Respiratory/Chest: Present: Clear to Auscultation, Good Air Exchange. No: Respiratory Distress, Accessory Muscle Use Cardiovascular: Present: Regular Rate and Rhythm, Normal S1, S2. No: Murmurs Abdomen: No: Tenderness, Distention, Peritoneal Signs, Rebound, Guarding Back: Present: Normal Inspection Upper Extremity: Present: Normal Inspection. No: Cyanosis, Edema Lower Extremity: Present: Normal Inspection. No: Edema Neurological: Present: GCS=15, CN II-XII Intact, Speech Normal, Motor Func Grossly Intact, Gait Normal, Memory Normal Skin: Present: Warm, Dry, Normal Color. No: Rashes Psychiatric: Present: Alert, Oriented x 3, Normal Insight, Normal Concentration Medical Decision Making ED Course and Treatment: 10/22/17 17:52 -labs/ua/uds -ekg -cxr -PES paged and notified, will come to evaluate the patient 10/22/17 18:50 -Urine hcg is negative -EKG:NSR @ 96 BPM, no acute ST or T wave changes compared with previous EKG -Chest xray: no active disease -Labs show no acute findings except wbc 14 (afebrile, no medical complaints, admits stressing out lately, likely stress induced) -Urinalysis show no acute findings -UDS show show no acute findings. -Pt. is medically clear and stable at this time for psychiatric evaluation. 10/22/17 19:39 -PES Mae evaluated the patient, recommend admission under Dr. Arnav Brar. -I discussed with Dr. Raphael Benz and he agreed on the treatment/admission plan. -One on One ordered. - Lab Interpretations Microbiology Results: Microbiology Results 10/22/17 19:06 Urine,Clean Catch Urine Culture - Final <10,000 CFU/ML. MULTIPLE SPECIES. PROBABLE CONTAMINATION. Lab Results: 10/22/17 18:00 10/22/17 18:00 Lab Results 10/22/17 18:00: WBC 14.2 H D, RBC 4.21, Hgb 12.0, Hct 35.4 L, MCV 84.1, MCH 28.5 , MCHC 33.9, RDW 16.4 H, Plt Count 337, MPV 8.6, Gran % 49.4 L, Lymph % (Auto) 41.6 H, [place] % (Auto) 8.1 H, Eos % (Auto) 0.6 L, Baso % (Auto) 0.3, Gran # 6.99 H, Lymph # (Auto) 5.9 H, [place] # (Auto) 1.2 H, Eos # (Auto) 0.1, Baso # (Auto) 0.04 10/22/17 18:00: Alcohol, Quantitative < 10 10/22/17 18:00: Salicylates < 1 L, Acetaminophen < 10.0 L 10/22/17 18:00: Urine Opiates Screen Negative, Urine Methadone Screen Negative, Ur Barbiturates Screen Negative, Ur Phencyclidine Scrn Negative, Ur Amphetamines Screen Negative, U Benzodiazepines Scrn Negative, U Oth Cocaine Metabols Negative, U Cannabinoids Screen Negative 10/22/17 18:00: Sodium 138, Potassium 4.1, Chloride 99, Carbon Dioxide 26, Anion Gap 17, BUN 5 L, Creatinine 0.3 L, Est GFR ( Amer) > 60, Est GFR ( Non-Af Amer) > 60, Random Glucose 120 H, Calcium 9.3, Total Bilirubin < 0.1 L, AST 24, ALT 17, Alkaline Phosphatase 85, Total Protein 7.9, Albumin 4.4, Globulin 3.5, Albumin/Globulin Ratio 1.2 10/22/17 18:00: Urine Color Colorless, Urine Appearance Clear, Urine pH 6.0, Ur Specific [place] <= 1.005, Urine Protein Negative, Urine Glucose (UA) Negative, Urine Ketones Negative, Urine Blood Negative, Urine Nitrate Negative, Urine Bilirubin Negative, Urine Urobilinogen 0.2, Ur Leukocyte Esterase Trace H, Urine RBC Negative, Urine WBC 0 - 2, Ur Epithelial Cells 0 - 2 - RAD Interpretation Radiology Orders: 10/22/17 17:53 CHEST PORTABLE [RAD] Stat no active disease Psychiatric Technician Assistant: Radiologist - EKG Interpretation EKG Interpretation (Text): 10/22/17 18:15 -EKG: NSR @ 96 BPM, no acute ST or T wave changes compared with previous EKG Interpreted by ED Physician: Yes Type: 12 lead EKG Comparison: Com.w/previous EKG - Medication Orders Current Medication Orders: Acetaminophen (Tylenol 325mg Tab) 325 mg PO Q6H PRN PRN Reason: Pain, Mild (1-3) Al Hydrox/Mg Hydrox/Simethicone (Maalox Plus 30 Ml) 30 ml PO DAILY PRN PRN Reason: Dyspepsia Last Admin: 10/23/17 18:18 Dose: 30 ml Amlodipine Besylate (Norvasc) 10 mg PO DAILY [facility] Last Admin: 10/25/17 09:00 Dose: 10 mg MAR Blood Pressure Document 10/25/17 09:00 RGO (Rec: 10/25/17 09:01 RGO [id number]) Blood Pressure Blood Pressure (100/60-150/90) 134/87 Aspirin (Ecotrin) 81 mg PO DAILY [facility] Last Admin: 10/25/17 09:01 Dose: 81 mg Atorvastatin Calcium (Lipitor) 20 mg PO DIN [facility] Last Admin: 10/24/17 17:20 Dose: 20 mg Benztropine Mesylate (Cogentin) 1 mg PO HS [facility] Last Admin: 10/24/17 21:44 Dose: 1 mg Citalopram Hydrobromide (Celexa) 5 mg PO DAILY [facility] Clozapine (Clozaril) 300 mg PO HS [facility] PRN Reason: Protocol Last Admin: 10/24/17 21:43 Dose: 300 mg Clozapine (Clozaril) 50 mg PO HS [facility] Last Admin: 10/24/17 21:43 Dose: 50 mg Divalproex Sodium (Depakote Er(Once Daily)) 1,000 mg PO HS [facility] Last Admin: 10/24/17 21:43 Dose: 1,000 mg Behavioural Document 10/24/17 21:43 EOO (Rec: 10/24/17 21:44 EOO [id number]) Maintenance Maintenance Dose Yes Nonmedicinal Nonmedicinal Interventions Therapeutic Communication Behavior Behavior for Medication: Anxiety Re-Assess: Reassess Psych Meds Document 10/24/17 22:43 EOO (Rec: 10/25/17 00:22 EOO [id number]) Reassess Psych Med Effective Docusate Sodium (Colace) 100 mg PO BID [facility] Last Admin: 10/25/17 09:01 Dose: 100 mg Last Bowel Movement Document 10/25/17 09:01 RGO (Rec: 10/25/17 09:01 RGO [id number]) Last Bowel Movement Last Bowel Movement 10/24/17 Ferrous Sulfate (Feosol) 324 mg PO DAILY [facility] Last Admin: 10/25/17 09:00 Dose: 324 mg Haloperidol (Haldol) 5 mg PO DAILY [facility] PRN Reason: Protocol Last Admin: 10/25/17 08:59 Dose: 5 mg Behavioural Document 10/25/17 08:59 RGO (Rec: 10/25/17 09:00 RGO [id number]) Maintenance Maintenance Dose Yes Re-Assess: Reassess Psych Meds Document 10/25/17 09:59 ABO (Rec: 10/25/17 12:36 ABO [id number]) Reassess Psych Med Effective Haloperidol Decanoate (Haldol Decanoate--Long Acting) 100 mg IM ONCE ONE PRN Reason: Protocol Stop: 11/03/17 08:01 Losartan Potassium (Cozaar) 100 mg PO DAILY [facility] Last Admin: 10/25/17 09:01 Dose: 100 mg Magnesium Hydroxide (Milk Of Magnesia) 30 ml PO DAILY PRN PRN Reason: Constipation Metformin HCl (Glucophage) 1,000 mg PO BID [facility] Last Admin: 10/25/17 09:00 Dose: 1,000 mg Multivitamins (Thera Tab) 1 tab PO 0800 [facility] Last Admin: 10/25/17 09:00 Dose: 1 tab Sitagliptin Phosphate (Januvia) 100 mg PO DAILY [facility] Last Admin: 10/25/17 09:00 Dose: 100 mg Discontinued Medications Citalopram Hydrobromide (Celexa) 20 mg PO DAILY [facility] Last Admin: 10/24/17 08:24 Dose: 20 mg Citalopram Hydrobromide (Celexa) 10 mg PO DAILY [facility] Last Admin: 10/25/17 09:01 Dose: 10 mg Clozapine (Clozaril) 200 mg PO HS [facility] PRN Reason: Protocol - 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 Disposition/Present on Arrival - Present on Arrival Any Indicators Present on Arrival: No History of DVT/PE: No History of Uncontrolled Diabetes: No Urinary Catheter: No History of Decub. Ulcer: No History Surgical Site Infection Following: None - Disposition Have Diagnosis and Disposition been Completed?: Yes Diagnosis: Depression, Suicidal ideation Disposition: HOSPITALIZED Disposition Time: 17:53 Patient Plan: Admission Patient Problems: Current Active Problems Problem Status Onset Suicidal ideation Acute Depression Acute Condition: GOOD
[2017-10-22 18:24] LABS: BASO # 0.04 K/mm3 (0.0-2.0); BASO % 0.3 % (0.0-3.0); EOS # 0.1 (0.0-0.7); EOS % 0.6 % (1.5-5.0); GRAN # 6.99 (1.4-6.5); GRAN % 49.4 % (50.0-68.0); LYMPH # 5.9 (1.2-3.4); LYMPH % 41.6 % (22.0-35.0); MEAN CELL VOLUME 84.1 fl (80.0-105.0); MEAN CORPUSCULAR HEMOGLOBIN 28.5 pg (25.0-35.0); MEAN CORPUSCULAR HGB CONC 33.9 g/dl (31.0-37.0); MEAN PLATELET VOLUME 8.6 fl (7.0-11.0); MONO # 1.2 (0.1-0.6); MONO % 8.1 % (1.0-6.0); RBC 4.21 10^6/uL (3.5-6.1); RED CELL DISTRIBUTION WIDTH 16.4 % (11.5-14.5); WHITE BLOOD COUNT 14.2 10^3/ul (4.5-11.0)
[2017-10-22 18:26] LABS: URINE BILIRUBIN NEGATIVE (NEGATIVE); URINE BLOOD NEGATIVE (NEGATIVE); URINE GLUCOSE (UA) NEGATIVE (NEGATIVE); URINE LEUKOCYTE ESTERASE TRACE Leu/uL (NEGATIVE); URINE PROTEIN NEGATIVE mg/dL (<30 mg/dL); URINE UROBILINOGEN 0.2 E.U./dL (<1 E.U./dL)
[2017-10-22 18:27] LABS: URINE APPEARANCE CLEAR (CLEAR); URINE COLOR COLORLESS (YELLOW)
[2017-10-22 18:31] LABS: ACETAMINOPHEN < 10.0 ug/ml (10.0-20.0); SALICYLATE < 1 mg/dL (2.0-20.0)
[2017-10-22 18:32] LABS: URINE EPITHELIAL CELLS 0 - 2 /hpf (0-5); URINE RBC NEGATIVE /hpf (0-2); URINE WBC 0 - 2 /hpf (0-6)
[2017-10-22 18:34] LABS: ALB/GLOB RATIO 1.2 (1.1-1.8); ALBUMIN 4.4 g/dL (3.0-4.8); ALT/SGPT 17 U/L (7-56); AST/SGOT 24 U/L (14-36); BLOOD UREA NITROGEN 5 mg/dL (7-21); CALCIUM 9.3 mg/dL (8.4-10.5); GFR AFRICAN-AMERICAN > 60; GFR NON-AFRICAN AMERICAN > 60
[2017-10-22 18:42] LABS: BARBITURATES, UR NEGATIVE (NEGATIVE); BENZODIAZEPINES, UR NEGATIVE (NEGATIVE); OPIATES, UR NEGATIVE (NEGATIVE); PHENCYCLIDINE, UR NEGATIVE (NEGATIVE)
[2017-10-22 20:21] VITALS: O2SAT 95
[2017-10-22] MEDS ORDERED: Magnesium Hydroxide Susp 30 ml UD PO PRN ×2 (20:53→21:22)
[2017-10-22] MEDS ORDERED: Alum-Mag Hydrox-Simethicone Susp (30 mL) PO PRN ×2 (20:53→21:22)
[2017-10-22] MEDS: Divalproex 500 mg ER (ONCE DAILY formulation) PO SCH (23:34)
--- NOTE | 2017-10-23 00:32 | PCM.BM ---
<Boris Bryant - Last Filed: 10/23/17 00:29> Treatment Plan Problems - Problems identified on initial assessmt suicidal ideation Date Initiated: 10/22/17 Time Initiated: 22:50 Assessment reference: NA Status: Active Priority: 1 Non-compliance with medications Date Initiated: 10/22/17 Time Initiated: 22:50 Assessment reference: NA Status: Active Priority: 2 Treatment assets and liabiliti Patient Assests: adapts well, cooperative, self-reliant, ADL independent, negotiates basic needs, cognitively intact, good interpersonal skills Patient Liabilities: poor support system, medical problems - Milieu Protocol Maintain good personal hygiene: daily Encourage regular showers, daily Remind patient to perform daily oral care, daily Assist patient to perform ADL's Maintain personal safety: daily Educate patient to report safety concerns to staff, daily Monitor environment for contraband/sharps Medication safety: Monitor for expected outcome, potential side effects: daily, Assess barriers to learning: daily, Assess readiness for medication education: daily Family Contact Family involvement: Patient does not wish Family/SO involvement Family contact: Patient agrees to contact Discharge/Continuing Care - Education Needs Education Needs: Patient Medication, Patient Diagnosis/Disease Process, Patient Coping Skills - Discharge Discharge Criteria: Free of Suicidal thoughts <Ross Sotelo - Last Filed: 10/23/17 11:21> Treatment Plan Problems - Problems identified on initial assessmt Ineffective Coping Date Initiated: 10/23/17 Time Initiated: 11:21 Assessment reference: NA Status: Active Priority: 1 Hopelessness Date Initiated: 10/23/17 Time Initiated: 11:21 Assessment reference: NA Status: Active Priority: 2 <Zonia José - Last Filed: 10/23/17 16:31> - Diagnosis (1) Schizoaffective disorder, bipolar type Status: Chronic Interventions: 10/23/17 08:50 Psychoeducation/psychotherapy Psychopharmacology/adjustment of medications as needed/ monitoring possible side effects Evaluate pt on daily basis Compliance with medications and follow up appointments Long acting medication if pt is noncompliant with pill form Suicide and homicide risk assessment and prevention, coping strategies, safety plan Relapse prevention Reduction of symptoms Improve functional status Possible assertive community treatment Cognitive behavioral therapy Family involvement Possible social skill training as outpatient <Raisa Miller - Last Filed: 10/23/17 17:15> Family Contact Family involvement: Family/SO is involved Family contact: Patient agrees to contact - Outside Agency [facility] Care involvment: Following patient during stay, Information-sharing Agency contact name: [facility]
[2017-10-23 06:48] LABS: HDL CHOLESTEROL 37 mg/dL (29-60)
[2017-10-23 06:52] LABS: BASO # 0.05 K/mm3 (0.0-2.0); BASO % 0.3 % (0.0-3.0); EOS # 0.1 (0.0-0.7); EOS % 0.6 % (1.5-5.0); GRAN # 9.21 (1.4-6.5); GRAN % 56.5 % (50.0-68.0); LYMPH # 5.7 (1.2-3.4); LYMPH % 35.1 % (22.0-35.0); MEAN CELL VOLUME 84.4 fl (80.0-105.0); MEAN CORPUSCULAR HEMOGLOBIN 28.3 pg (25.0-35.0); MEAN CORPUSCULAR HGB CONC 33.5 g/dl (31.0-37.0); MEAN PLATELET VOLUME 8.8 fl (7.0-11.0); MONO # 1.2 (0.1-0.6); MONO % 7.5 % (1.0-6.0); RBC 4.24 10^6/uL (3.5-6.1); RED CELL DISTRIBUTION WIDTH 16.5 % (11.5-14.5); WHITE BLOOD COUNT 16.3 10^3/ul (4.5-11.0)
[2017-10-23 06:59] LABS: LDL CHOLESTEROL 125 mg/dL (0-129)
[2017-10-23] MEDS: Multivitamin Therapeutic Tab PO SCH (08:22)
--- NOTE | 2017-10-23 09:15 | RAD ---
HISTORY: medical clearance COMPARISON: 10/02/2017 FINDINGS: LUNGS: No active pulmonary disease. PLEURA: No significant pleural effusion identified, no pneumothorax apparent. CARDIOVASCULAR: Normal. OSSEOUS STRUCTURES: No significant abnormalities. VISUALIZED UPPER ABDOMEN: Normal. OTHER FINDINGS: None. IMPRESSION: No active disease.
--- NOTE | 2017-10-23 10:02 | CARD ---
APPROVED REPORT EKG Measurement Heart [id number] <Conclusion> Normal sinus rhythm Moderate voltage criteria for LVH, may be normal variant PRWP STTW changes c/w ischemia, new Leftward axis
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
[2017-10-23] MEDS: Divalproex 500 mg ER (ONCE DAILY formulation) PO SCH (21:22)
[2017-10-24 07:58] LABS: MEAN CELL VOLUME 84.8 fl (80.0-105.0); MEAN CORPUSCULAR HEMOGLOBIN 28.3 pg (25.0-35.0); MEAN CORPUSCULAR HGB CONC 33.3 g/dl (31.0-37.0); MEAN PLATELET VOLUME 8.6 fl (7.0-11.0); RBC 3.89 10^6/uL (3.5-6.1); RED CELL DISTRIBUTION WIDTH 16.8 % (11.5-14.5); WHITE BLOOD COUNT 12.4 10^3/ul (4.5-11.0)
[2017-10-24] MEDS: Multivitamin Therapeutic Tab PO SCH (08:24)
--- NOTE | 2017-10-24 08:24 | CON ---
HISTORY OF PRESENT ILLNESS: I know Gato for years. She has been in my office. She is now back in the fifth floor, psych floor with complaint of depression and suicidal ideation for one day. She was having problems at home. Did not feel comfortable. She was hearing voices telling her to go to the emergency room and not to cut herself and she decided to listen to the voices to come to the emergency room. PAST MEDICAL HISTORY: Includes hypertension, diabetes, bipolar, schizophrenia, schizoaffective disorder. She has been suicidal in the past, depression in the past. High cholesterol and she has had auditory hallucinations before. She has had seizures, anemia, anxiety, depression. FAMILY HISTORY: Unknown. SOCIAL HISTORY: Former smoker. No alcohol. No drugs. ALLERGIES: NO KNOWN DRUG ALLERGIES. MEDICATIONS: She takes Celexa, Clozaril, Cogentin, Colace, Cozaar, Depakote, Ecotrin, iron, Glucophage, Haldol, Januvia, Lipitor, Norvasc. REVIEW OF SYSTEMS: She is not tired. No fever. No vision or hearing changes. No shortness of breath or cough. No chest pain or palpitations. No abdominal pain, nausea, vomiting, constipation or diarrhea. No skin issues that she knows of. No rashes or ulcers. No headaches or dizziness. She had depression, suicidal ideation and hearing voices. PHYSICAL EXAMINATION: VITAL SIGNS: She has 98.2 temp, 98 pulse, 18 respiratory rate, 125/85 blood pressure, 99% O2 sat on room air. HEENT: Head is atraumatic and normocephalic. Throat is moist. Extraocular muscles are intact. Pupils are equal and reactive to light. NECK: Supple. HEART: Regular rate. Normal S1, S2. LUNGS: Clear to auscultation bilaterally. No wheezes, rhonchi or rales. ABDOMEN: Soft, nontender. Positive bowel sounds. No guarding. No rebound. No CVA tenderness. EXTREMITIES: No edema. NEUROLOGIC: GCS is 15. Cranial nerves II through XII grossly intact. Alert and oriented x3. SKIN: Warm and dry. No apparent ulcers or redness or cellulitis appreciated. PSYCHIATRIC: Smiling right now, she is happy. She is in the psychiatric floor. She feels safer she tells me. She is happy. She listen to the voice to tell come to the ER. LABORATORY DATA: She has had blood test done. She had a white count of 14.2, 12 hemoglobin and 337 platelets. she comes in with high white count , it drops today, it went up to 16.3 white count , 35.8 hematocrit with 341 platelet. We will order blood cultures and urine cultures and Infectious Disease consult. She had a 138 sodium, potassium 4.2, BUN 5, creatinine 0.3, last blood sugar is 124, calcium is 9.3, total bili is less than 0.1, AST is 24, ALT is 17, alk phos is 84, total protein 7.9, triglycerides are 200, little high, cholesterol is 194, TSH is 4.51. Urine is trace leukocytes, otherwise clean. Toxicology was clean. ASSESSMENT AND PLAN: She is here with suicidal ideation, depression, auditory hallucinations, leukocytosis, hypertension, diabetes, high cholesterol, bipolar, schizophrenia. We will call Infectious Disease to get her cultures done and will follow up. Thank you for the consult. Jason Contreras DO SANDOR
[2017-10-24 08:29] LABS: ALB/GLOB RATIO 1.2 (1.1-1.8); ALBUMIN 3.7 g/dL (3.0-4.8); ALT/SGPT 17 U/L (7-56); AST/SGOT 19 U/L (14-36); BLOOD UREA NITROGEN 8 mg/dL (7-21); CALCIUM 8.9 mg/dL (8.4-10.5); GFR AFRICAN-AMERICAN > 60; GFR NON-AFRICAN AMERICAN > 60
--- NOTE | 2017-10-24 16:15 | PCM.PYCHPN ---
Psychiatric Progress Note - Psychiatric Progress Note Patient seen today, length of contact: 30 minutes Patient Chief Complaint: ", I'm doing just fine, everything is good, unit the best in the whole world" Problems Identified/Issues Discussed: Suicide/ homicide prevention, past psychiatric h/o, current psychiatric symptoms , medical problems, risk/benefits and alternatives of medications, medications compliance, coping strategies, substance abuse h/o, relapse prevention, importance of follow up with psychiatrist and therapist, discharge plan. Medical Problems: diabetes, hypertension, obesity Diagnostic Results: 10/24/17 07:30 10/24/17 07:30 Lab Results 10/24/17 11:37: POC Glucose (mg/dL) 127 H 10/24/17 07:30: Sodium 138, Potassium 4.4, Chloride 100, Carbon Dioxide 27, Anion Gap 15, BUN 8, Creatinine 0.4 L, Est GFR ( Amer) > 60, Est GFR (Non -Af Amer) > 60, Random Glucose 126 H, Calcium 8.9, Total Bilirubin < 0.1 L, AST 19, ALT 17, Alkaline Phosphatase 66, Total Protein 6.7, Albumin 3.7, Globulin 3.0, Albumin/Globulin Ratio 1.2 10/24/17 07:30: WBC 12.4 H D, RBC 3.89, Hgb 11.0 L, Hct 33.0 L, MCV 84.8, MCH 28.3, MCHC 33.3, RDW 16.8 H, Plt Count 296, MPV 8.6 10/24/17 07:13: POC Glucose (mg/dL) 121 H 10/23/17 21:04: POC Glucose (mg/dL) 156 H 10/23/17 16:01: POC Glucose (mg/dL) 135 H 10/23/17 12:47: POC Glucose (mg/dL) 133 H 10/23/17 10:50: Procalcitonin < 0.05 L 10/23/17 07:28: POC Glucose (mg/dL) 124 H 10/23/17 06:15: WBC 16.3 H, RBC 4.24, Hgb 12.0, Hct 35.8 L, MCV 84.4, MCH 28.3, MCHC 33.5, RDW 16.5 H, Plt Count 341, MPV 8.8, Gran % 56.5, Lymph % (Auto) 35.1 H, [place] % (Auto) 7.5 H, Eos % (Auto) 0.6 L, Baso % (Auto) 0.3, Gran # 9.21 H, Lymph # (Auto) 5.7 H, [place] # (Auto) 1.2 H, Eos # (Auto) 0.1, Baso # (Auto) 0.05 10/23/17 06:15: Valproic Acid 62 10/23/17 06:15: Triglycerides 200 H, Cholesterol 194, LDL Cholesterol Direct 125 , HDL Cholesterol 37 10/23/17 06:15: RPR Nonreactive 10/23/17 06:15: TSH 3rd Generation 4.51 10/23/17 06:15: Fasting Glucose 145 H 10/22/17 21:44: POC Glucose (mg/dL) 224 H 10/22/17 18:00: WBC 14.2 H D, RBC 4.21, Hgb 12.0, Hct 35.4 L, MCV 84.1, MCH 28.5 , MCHC 33.9, RDW 16.4 H, Plt Count 337, MPV 8.6, Gran % 49.4 L, Lymph % (Auto) 41.6 H, [place] % (Auto) 8.1 H, Eos % (Auto) 0.6 L, Baso % (Auto) 0.3, Gran # 6.99 H, Lymph # (Auto) 5.9 H, [place] # (Auto) 1.2 H, Eos # (Auto) 0.1, Baso # (Auto) 0.04 10/22/17 18:00: Alcohol, Quantitative < 10 10/22/17 18:00: Salicylates < 1 L, Acetaminophen < 10.0 L 10/22/17 18:00: Urine Opiates Screen Negative, Urine Methadone Screen Negative, Ur Barbiturates Screen Negative, Ur Phencyclidine Scrn Negative, Ur Amphetamines Screen Negative, U Benzodiazepines Scrn Negative, U Oth Cocaine Metabols Negative, U Cannabinoids Screen Negative 10/22/17 18:00: Sodium 138, Potassium 4.1, Chloride 99, Carbon Dioxide 26, Anion Gap 17, BUN 5 L, Creatinine 0.3 L, Est GFR ( Amer) > 60, Est GFR ( Non-Af Amer) > 60, Random Glucose 120 H, Calcium 9.3, Total Bilirubin < 0.1 L, AST 24, ALT 17, Alkaline Phosphatase 85, Total Protein 7.9, Albumin 4.4, Globulin 3.5, Albumin/Globulin Ratio 1.2 10/22/17 18:00: Urine Color Colorless, Urine Appearance Clear, Urine pH 6.0, Ur Specific [place] <= 1.005, Urine Protein Negative, Urine Glucose (UA) Negative, Urine Ketones Negative, Urine Blood Negative, Urine Nitrate Negative, Urine Bilirubin Negative, Urine Urobilinogen 0.2, Ur Leukocyte Esterase Trace H, Urine RBC Negative, Urine WBC 0 - 2, Ur Epithelial Cells 0 - 2 Vital Signs Temp Pulse Pulse Resp BP Pulse Ox 10/24/17 08:23 106/71 10/24/17 06:49 97.3 F L 77 18 106/71 10/23/17 16:17 93 H 125/85 10/23/17 08:22 117/87 10/23/17 06:36 97.8 F 90 20 117/87 10/22/17 22:27 96 H 18 10/22/17 20:09 95 10/22/17 17:44 98.2 F 98 H 18 125/85 99 DSM 5 Symptoms Update: shortly patient is 41 years old -[place] female, long and debilitating history of schizophrenia vs schizoaffective, treatment resistant, multiple admissions to the psychiatric inpatient unit in the past, including to this hospital (last admission was 10 days ago to this facility), pt was d/c from [facility] Sep 16 2017, currently is followed by [facility] PACT team, pt is on clozaril and Haldol Dec. pt called 911 for depressive symptoms and possible suicidal ideation with the ?plan to cut her wrists (pt denied during the interview), pt was not able to contract for safety in ED. Patient was seen and examined in the hallway, patient presented to be superficial okay, patient is talkative, was over idealizing this commercial real estate underwriter is saying "you at the best doctor in the world", patient reported that she feels okay, nothing is bothering her, patient has childlike demeanor, superficially could be presenting well, patient still delusional about "Mr. Paige". patient presented with good personal hygiene, fair ADLs, this commercial real estate underwriter is very familiar with this patient from the multiple admissions to this hospital. meeting with the PACT team requested, will take place tomorrow Far patient tolerates medications well, no side effects observed or reported, aims 0, no EPS. Impression: Schizoaffective disorder, bipolar type Medication Change: Yes (Celexa decreased) Medical Record Reviewed: Yes Consults ordered or reviewed: infectious disease consult appreciated for leukocytosis as per infectious diseases leukocytosis could be related to the medication such as Celexa, we will discuss with infectious disease team as well as medical team will consider to discontinue Mental Status Examination - Cognitive Function Orientation: Person Memory: Impaired Attention: Poor Concentration: Poor Association: Loose Fund of Knowledge: Poor - Mood Mood: Neutral - Affect Affect: Flat - Speech Speech: Soft - Formal Thought Process Formal Thought Process: Delusions (chronic) - Suicidal Ideation Suicidal Ideation: No - Homicidal Ideation Homicidal Ideation: No Goal/Treatment Plan - Goal/Treatment Plan Need for Continued Stay: Remain at risks for inpatient hospitalization, Severe depression anxiety, Discharge may exacerbated symptoms, Failed transitioning, Severe functional impairment Progress Toward Problem(s) and Goals/Treatment Plan: Milieu/structure/supportive therapy Medical consult appreciated, see medical team note for more detailed info SW consultation for discharge plan and social issues Med management Haldol decanoate 100 mg IM every month due is 11/03/17 (ordered) Clozaril 350 mg by mouth at the nighttime for psychosis Cogentin 1 mg daily Iron pill 325 mg by mouth daily Folic acid 1 mg by mouth daily Haldol 5 mg by mouth daily for psychosis Januvia 50 mg by mouth daily Metformin 1000 mg by mouth twice a day Multivitamins 1 daily Lipitor 20 mg at the nighttime Depakote 1000 a day for mood stabilization Patient is on Clozaril and blood need to be monitored weekly, ,no signs of agranulocytosis. celexa 10mg po daily for depression/anxiety Family involvement Follow up on labs Will monitor closely Pt was educated about risk/benefits and alternatives of medications, coping strategies (safety plan, suicide prevention), relapse prevention, importance of follow up with psychiatrist and therapist, stay away from drugs/alcohol/smoking
--- NOTE | 2017-10-24 16:24 | PN ---
DATE: 10/24/2017 SUBJECTIVE: I saw her resting comfortably in bed this morning. She slept very well. She was kind of tired this morning, but she is trying to improve. OBJECTIVE: VITAL SIGNS: She has a 97.3 temperature, 77 pulse, 106/71 blood pressure, 18 respiratory rate. HEENT: Head is atraumatic, normocephalic. HEART: Regular rate. LUNGS: Decreased breath sounds, but clear. ABDOMEN: Soft, nontender. EXTREMITIES: No edema. MEDICATIONS: She is currently on Celexa, Clozaril, Cogentin, Colace, Cozaar, Depakote, Ecotrin, Feosol, Glucophage, Haldol, Januvia, Lipitor, Maalox, milk of magnesia, Norvasc, Thera-Tabs, Tylenol. DATA: I have been watching her white count, it was 14, 16, now came down to 12.4, could have been inflammatory. I will check it again tomorrow, under 10 is normal; 11 hemoglobin; 33 hematocrit with 296 platelets. Sodium 138, potassium 4.4, BUN is 8, creatinine 0.4. GFR is greater than 60. Sugar is 126, calcium is 8.9, total bili is less than 0.1, AST is 19, ALT is 17, alkaline phosphatase 56, total protein 6.7. Procalcitonin is less than 0.05. Urine was clean. Toxicology was clean. She has a 62 valproic acid and RPR was nonreactive. She had a consult with Infectious Disease when the white count went from 14 to 16 to get his opinion. white count has dropped down to 12. He is observing her, could be drug related which is what I thought and her chest x-ray is clear. I will treat her with aggressive treatment and care, checking her labs, encouragement in groups and medicines I get her better psychologically. Infectious Disease is appreciating Jason Contreras DO MTDD
[2017-10-24] MEDS: Divalproex 500 mg ER (ONCE DAILY formulation) PO SCH (21:43)
[2017-10-25 08:16] LABS: HEMOGLOBIN 10.6 g/dL (12.0-16.0); MEAN CELL VOLUME 84.1 fl (80.0-105.0); MEAN CORPUSCULAR HGB CONC 33.3 g/dl (31.0-37.0); MEAN PLATELET VOLUME 8.6 fl (7.0-11.0); RBC 3.78 10^6/uL (3.5-6.1); RED CELL DISTRIBUTION WIDTH 16.4 % (11.5-14.5); WHITE BLOOD COUNT 11.2 10^3/ul (4.5-11.0)
[2017-10-25 08:38] LABS: ALB/GLOB RATIO 1.2 (1.1-1.8); ALBUMIN 3.7 g/dL (3.0-4.8); ALT/SGPT 21 U/L (7-56); AST/SGOT 24 U/L (14-36); BLOOD UREA NITROGEN 6 mg/dL (7-21); CALCIUM 8.7 mg/dL (8.4-10.5); GFR AFRICAN-AMERICAN > 60; GFR NON-AFRICAN AMERICAN > 60
[2017-10-25] MEDS: Multivitamin Therapeutic Tab PO SCH (09:00)
--- NOTE | 2017-10-25 13:02 | PN ---
DATE: 10/25/2017 SUBJECTIVE: I saw Gato resting comfortably in bed, she slept well. She has no complaints. She is driving, she is eating, very tired this morning. MEDICATIONS: She is on Celexa, Flagyl, Cogentin, Colace, Cozaar, Depakote, Ecotrin, Feosol, Glucophage, Haldol, Januvia, Lipitor, Maalox, milk of magnesia, Norvasc, Cheratussin, Tylenol. PHYSICAL EXAMINATION: VITAL SIGNS: Temperature 97.7, 79 pulse, 134/87 blood pressure, 19 respiratory rate. HEENT: Head is atraumatic, normocephalic. HEART: Regular rate. LUNGS: Clear to auscultation. ABDOMEN: Soft, nontender, positive bowel sounds, obese. EXTREMITIES: No edema. LABORATORY DATA: She has a 11.2 white count, coming down without doing any antibiotics, it could drug related as per ID; hemoglobin 10.6; hematocrit 31.8; platelets are 306. She has 138 sodium, potassium 4.4, BUN 8, creatinine 0.4, last blood sugar was 122, calcium is 8.9, total bilirubin is less than 0.01. AST is 19, ALT is 17, alkaline phosphatase is 66. ASSESSMENT AND PLAN: Overall, I think she is improving a bit. No growth in urine, less than 10,000 multiple species, probable contaminant and blood has no growth. Continue as per Psychiatry. We will follow. She has suicidal ideation, depression, auditory hallucination, leukocytosis, hypertension, diabetes, high cholesterol, bipolar, schizophrenia. Jason Contreras DO
--- NOTE | 2017-10-25 16:07 | PCM.PYCHPN ---
Psychiatric Progress Note - Psychiatric Progress Note Patient seen today, length of contact: 30 minutes Patient Chief Complaint: ", you need to trust me, give me a chance, I will be OK, I will go to day treatment program, I will be fairly responsible with my medications, thank you for the best treatment in the whole entire world, I will also apply for a job, I want to work in [employer] office..." of note pt is under PACT team, pt is supervised with meds, pt is not able to function, needs f/u daily, pt has unrealistic plans. Problems Identified/Issues Discussed: Suicide/ homicide prevention, past psychiatric h/o, current psychiatric symptoms , medical problems, risk/benefits and alternatives of medications, medications compliance, coping strategies, substance abuse h/o, relapse prevention, importance of follow up with psychiatrist and therapist, discharge plan. Medical Problems: diabetes, hypertension, obesity Diagnostic Results: 10/24/17 07:30 10/24/17 07:30 Lab Results 10/24/17 11:37: POC Glucose (mg/dL) 127 H 10/24/17 07:30: Sodium 138, Potassium 4.4, Chloride 100, Carbon Dioxide 27, Anion Gap 15, BUN 8, Creatinine 0.4 L, Est GFR ( Amer) > 60, Est GFR (Non -Af Amer) > 60, Random Glucose 126 H, Calcium 8.9, Total Bilirubin < 0.1 L, AST 19, ALT 17, Alkaline Phosphatase 66, Total Protein 6.7, Albumin 3.7, Globulin 3.0, Albumin/Globulin Ratio 1.2 10/24/17 07:30: WBC 12.4 H D, RBC 3.89, Hgb 11.0 L, Hct 33.0 L, MCV 84.8, MCH 28.3, MCHC 33.3, RDW 16.8 H, Plt Count 296, MPV 8.6 10/24/17 07:13: POC Glucose (mg/dL) 121 H 10/23/17 21:04: POC Glucose (mg/dL) 156 H 10/23/17 16:01: POC Glucose (mg/dL) 135 H 10/23/17 12:47: POC Glucose (mg/dL) 133 H 10/23/17 10:50: Procalcitonin < 0.05 L 10/23/17 07:28: POC Glucose (mg/dL) 124 H 10/23/17 06:15: WBC 16.3 H, RBC 4.24, Hgb 12.0, Hct 35.8 L, MCV 84.4, MCH 28.3, MCHC 33.5, RDW 16.5 H, Plt Count 341, MPV 8.8, Gran % 56.5, Lymph % (Auto) 35.1 H, [place] % (Auto) 7.5 H, Eos % (Auto) 0.6 L, Baso % (Auto) 0.3, Gran # 9.21 H, Lymph # (Auto) 5.7 H, [place] # (Auto) 1.2 H, Eos # (Auto) 0.1, Baso # (Auto) 0.05 10/23/17 06:15: Valproic Acid 62 10/23/17 06:15: Triglycerides 200 H, Cholesterol 194, LDL Cholesterol Direct 125 , HDL Cholesterol 37 10/23/17 06:15: RPR Nonreactive 10/23/17 06:15: TSH 3rd Generation 4.51 10/23/17 06:15: Fasting Glucose 145 H 10/22/17 21:44: POC Glucose (mg/dL) 224 H 10/22/17 18:00: WBC 14.2 H D, RBC 4.21, Hgb 12.0, Hct 35.4 L, MCV 84.1, MCH 28.5 , MCHC 33.9, RDW 16.4 H, Plt Count 337, MPV 8.6, Gran % 49.4 L, Lymph % (Auto) 41.6 H, [place] % (Auto) 8.1 H, Eos % (Auto) 0.6 L, Baso % (Auto) 0.3, Gran # 6.99 H, Lymph # (Auto) 5.9 H, [place] # (Auto) 1.2 H, Eos # (Auto) 0.1, Baso # (Auto) 0.04 10/22/17 18:00: Alcohol, Quantitative < 10 10/22/17 18:00: Salicylates < 1 L, Acetaminophen < 10.0 L 10/22/17 18:00: Urine Opiates Screen Negative, Urine Methadone Screen Negative, Ur Barbiturates Screen Negative, Ur Phencyclidine Scrn Negative, Ur Amphetamines Screen Negative, U Benzodiazepines Scrn Negative, U Oth Cocaine Metabols Negative, U Cannabinoids Screen Negative 10/22/17 18:00: Sodium 138, Potassium 4.1, Chloride 99, Carbon Dioxide 26, Anion Gap 17, BUN 5 L, Creatinine 0.3 L, Est GFR ( Amer) > 60, Est GFR ( Non-Af Amer) > 60, Random Glucose 120 H, Calcium 9.3, Total Bilirubin < 0.1 L, AST 24, ALT 17, Alkaline Phosphatase 85, Total Protein 7.9, Albumin 4.4, Globulin 3.5, Albumin/Globulin Ratio 1.2 10/22/17 18:00: Urine Color Colorless, Urine Appearance Clear, Urine pH 6.0, Ur Specific [place] <= 1.005, Urine Protein Negative, Urine Glucose (UA) Negative, Urine Ketones Negative, Urine Blood Negative, Urine Nitrate Negative, Urine Bilirubin Negative, Urine Urobilinogen 0.2, Ur Leukocyte Esterase Trace H, Urine RBC Negative, Urine WBC 0 - 2, Ur Epithelial Cells 0 - 2 Vital Signs Temp Pulse Pulse Resp BP Pulse Ox 10/24/17 08:23 106/71 10/24/17 06:49 97.3 F L 77 18 106/71 10/23/17 16:17 93 H 125/85 10/23/17 08:22 117/87 10/23/17 06:36 97.8 F 90 20 117/87 10/22/17 22:27 96 H 18 10/22/17 20:09 95 10/22/17 17:44 98.2 F 98 H 18 125/85 99 DSM 5 Symptoms Update: shortly patient is 41 years old -Stateless female, long and debilitating history of schizophrenia vs schizoaffective, treatment resistant, multiple admissions to the psychiatric inpatient unit in the past, including to this hospital (last admission was 10 days ago to this facility), pt was d/c from [facility] Sep 16 2017, currently is followed by [facility] PACT team, pt is on clozaril and Haldol Dec. pt called 911 for depressive symptoms and possible suicidal ideation with the ?plan to cut her wrists (pt denied during the interview), pt was not able to contract for safety in ED. Patient was seen and examined at the treatment team room, with SW, medical student and PACT Lisa. patient reported that she feels okay, nothing is bothering her, patient has childlike demeanor, superficially could be presenting well, at the same time patient has unrealistic plans, patient wants to go to day treatment program, patient wants to be not supervised with the medications, apply for a job, off note patient overdosed on pills, patient keeps coming back to the hospital whenever she feels lonely, patient has history of refusing to go to day treatment program, at the same time if patient will be assigned to the day treatment program patient cannot have PACT team. This literary writer would suggest follow up with the PACT team as it was before, because patient has extra support in the community, medication management, therapy, supervision with the medications. Far patient tolerates medications well, no side effects observed or reported, aims 0, no EPS. pt seems to have leukocytosis due to a celexa, which is on the tapering dose. Impression: Schizoaffective disorder, bipolar type Medication Change: Yes (Celexa decreased) Medical Record Reviewed: Yes Consults ordered or reviewed: infectious disease consult appreciated for leukocytosis as per infectious diseases leukocytosis could be related to the medication such as Celexa, we will discuss with infectious disease team as well as medical team will consider to discontinue Mental Status Examination - Cognitive Function Orientation: Person Memory: Impaired Attention: Poor (some improvement) Concentration: Poor (some improvement) Association: Loose (some improvement) Fund of Knowledge: Poor - Mood Mood: Neutral - Affect Affect: Flat - Speech Speech: Soft - Formal Thought Process Formal Thought Process: Delusions (chronic) - Suicidal Ideation Suicidal Ideation: No - Homicidal Ideation Homicidal Ideation: No Goal/Treatment Plan - Goal/Treatment Plan Need for Continued Stay: Remain at risks for inpatient hospitalization, Severe depression anxiety, Discharge may exacerbated symptoms, Failed transitioning, Severe functional impairment Progress Toward Problem(s) and Goals/Treatment Plan: Milieu/structure/supportive therapy Medical consult appreciated, see medical team note for more detailed info SW consultation for discharge plan and social issues Med management Haldol decanoate 100 mg IM every month due is 11/03/17 (ordered) Clozaril 350 mg by mouth at the nighttime for psychosis Cogentin 1 mg daily Iron pill 325 mg by mouth daily Folic acid 1 mg by mouth daily Haldol 5 mg by mouth daily for psychosis Januvia 50 mg by mouth daily Metformin 1000 mg by mouth twice a day Multivitamins 1 daily Lipitor 20 mg at the nighttime Depakote 1000 a day for mood stabilization Patient is on Clozaril and blood need to be monitored weekly, ,no signs of agranulocytosis. celexa 5mg po daily for depression/anxiety Family involvement Follow up on labs Will monitor closely Pt was educated about risk/benefits and alternatives of medications, coping strategies (safety plan, suicide prevention), relapse prevention, importance of follow up with psychiatrist and therapist, stay away from drugs/alcohol/smoking Estimated Date of D/C: 10/27/17
--- NOTE | 2017-10-25 16:39 | CP.PCM.PN ---
Subjective - Date & Time of Evaluation Date of Evaluation: 10/25/17 Time of Evaluation: 10:50 - Subjective Subjective: Comfortable, no cough, no abdominal pain, no dysuria, no SOB. Objective - Vital Signs/Intake and Output Vital Signs (last 24 hours): Temp Pulse Resp BP Pulse Ox 97.7 F 79 19 134/87 95 10/25/17 06:42 10/25/17 06:42 10/25/17 06:42 10/25/17 09:00 10/22/17 20:09 - Medications Medications: Current Medications Acetaminophen (Tylenol 325mg Tab) 325 mg PO Q6H PRN PRN Reason: Pain, Mild (1-3) Al Hydrox/Mg Hydrox/Simethicone (Maalox Plus 30 Ml) 30 ml PO DAILY PRN PRN Reason: Dyspepsia Last Admin: 10/23/17 18:18 Dose: 30 ml Amlodipine Besylate (Norvasc) 10 mg PO DAILY [facility] Last Admin: 10/25/17 09:00 Dose: 10 mg Aspirin (Ecotrin) 81 mg PO DAILY [facility] Last Admin: 10/25/17 09:01 Dose: 81 mg Atorvastatin Calcium (Lipitor) 20 mg PO DIN [facility] Last Admin: 10/24/17 17:20 Dose: 20 mg Benztropine Mesylate (Cogentin) 1 mg PO HS [facility] Last Admin: 10/24/17 21:44 Dose: 1 mg Citalopram Hydrobromide (Celexa) 10 mg PO DAILY [facility] Last Admin: 10/25/17 09:01 Dose: 10 mg Clozapine (Clozaril) 300 mg PO HS [facility] PRN Reason: Protocol Last Admin: 10/24/17 21:43 Dose: 300 mg Clozapine (Clozaril) 50 mg PO HS [facility] Last Admin: 10/24/17 21:43 Dose: 50 mg Divalproex Sodium (Depakote Er(Once Daily)) 1,000 mg PO HS [facility] Last Admin: 10/24/17 21:43 Dose: 1,000 mg Docusate Sodium (Colace) 100 mg PO BID [facility] Last Admin: 10/25/17 09:01 Dose: 100 mg Ferrous Sulfate (Feosol) 324 mg PO DAILY [facility] Last Admin: 10/25/17 09:00 Dose: 324 mg Haloperidol (Haldol) 5 mg PO DAILY NITIN PRN Reason: Protocol Last Admin: 10/25/17 08:59 Dose: 5 mg Haloperidol Decanoate (Haldol Decanoate--Long Acting) 100 mg IM ONCE ONE PRN Reason: Protocol Stop: 11/03/17 08:01 Losartan Potassium (Cozaar) 100 mg PO DAILY [facility] Last Admin: 10/25/17 09:01 Dose: 100 mg Magnesium Hydroxide (Milk Of Magnesia) 30 ml PO DAILY PRN PRN Reason: Constipation Metformin HCl (Glucophage) 1,000 mg PO BID [facility] Last Admin: 10/25/17 09:00 Dose: 1,000 mg Multivitamins (Thera Tab) 1 tab PO 0800 [facility] Last Admin: 10/25/17 09:00 Dose: 1 tab Sitagliptin Phosphate (Januvia) 100 mg PO DAILY [facility] Last Admin: 10/25/17 09:00 Dose: 100 mg - Labs Labs: 10/25/17 08:00 10/25/17 08:00 - Constitutional Appears: Chronically Ill - Head Exam Head Exam: NORMAL INSPECTION - ENT Exam ENT Exam: Mucous Membranes Moist - Neck Exam Neck Exam: absent: Meningismus - Respiratory Exam Respiratory Exam: Decreased Breath Sounds - Cardiovascular Exam Cardiovascular Exam: +S1, +S2 - GI/Abdominal Exam GI & Abdominal Exam: Soft. absent: Tenderness Assessment and Plan - Assessment and Plan (Free Text) Plan: Assessment Leukocytosis probably drug-related (ie. Celexa), without evidence of infectious process bipolar disorder schizophrenia schizoaffective disorder DM Plan Will continue to monitor off antibiotics - cultures have been negative, PCT is normal; CXR does not show infiltrates and urinalysis does not show pyuria
[2017-10-25] MEDS: Divalproex 500 mg ER (ONCE DAILY formulation) PO SCH (21:05)
[2017-10-26 07:08] VITALS: RESP 20
[2017-10-26] MEDS: Multivitamin Therapeutic Tab PO SCH (09:19)
--- NOTE | 2017-10-26 15:57 | PN ---
DATE: 10/26/2017 SUBJECTIVE: I saw her this morning in her bed. She was sleeping, easily arousable, just tired, which is her baseline. She tells me she is doing a little bit better. She is on Celexa, Clozaril, Cogentin, Colace, Cozaar, Depakote, Ecotrin, Feosol, Glucophage, Haldol, Januvia, Lipitor, Maalox, Milk of Magnesia, Norvasc, Thera-Tabs, Tylenol. PHYSICAL EXAMINATION VITAL SIGNS: She has a 97.7 temperature, 76 pulse, 102/65 blood pressure, 20 respiratory rate. HEENT: Head is atraumatic, normocephalic. HEART: Regular rate. LUNGS: Decreased breath sounds, but clear. ABDOMEN: Soft, nontender. EXTREMITIES: No edema. LABORATORY DATA: Last labs from yesterday, she had a 11.2 white count, this is better. Last blood sugar was 125. ASSESSMENT AND PLAN: I encouraged her to participate with Psychiatry and medications and the groups. She was being seen by Infectious Disease also we saw Psychiatry and he is happy with her being off the antibiotics and we will watch. She has suicidal ideation, depression, auditory hallucinations, leukocytosis, hypertension, high cholesterol, bipolar, schizophrenia. Jason Contreras DO
--- NOTE | 2017-10-26 16:46 | PCM.PYCHPN ---
Psychiatric Progress Note - Psychiatric Progress Note Patient seen today, length of contact: 30 minutes Patient Chief Complaint: ", I am fine, I am ready to go tomorrow" Problems Identified/Issues Discussed: Suicide/ homicide prevention, past psychiatric h/o, current psychiatric symptoms , medical problems, risk/benefits and alternatives of medications, medications compliance, coping strategies, substance abuse h/o, relapse prevention, importance of follow up with psychiatrist and therapist, discharge plan. Medical Problems: diabetes, hypertension, obesity Diagnostic Results: 10/24/17 07:30 10/24/17 07:30 Lab Results 10/24/17 11:37: POC Glucose (mg/dL) 127 H 10/24/17 07:30: Sodium 138, Potassium 4.4, Chloride 100, Carbon Dioxide 27, Anion Gap 15, BUN 8, Creatinine 0.4 L, Est GFR ( Amer) > 60, Est GFR (Non -Af Amer) > 60, Random Glucose 126 H, Calcium 8.9, Total Bilirubin < 0.1 L, AST 19, ALT 17, Alkaline Phosphatase 66, Total Protein 6.7, Albumin 3.7, Globulin 3.0, Albumin/Globulin Ratio 1.2 10/24/17 07:30: WBC 12.4 H D, RBC 3.89, Hgb 11.0 L, Hct 33.0 L, MCV 84.8, MCH 28.3, MCHC 33.3, RDW 16.8 H, Plt Count 296, MPV 8.6 10/24/17 07:13: POC Glucose (mg/dL) 121 H 10/23/17 21:04: POC Glucose (mg/dL) 156 H 10/23/17 16:01: POC Glucose (mg/dL) 135 H 10/23/17 12:47: POC Glucose (mg/dL) 133 H 10/23/17 10:50: Procalcitonin < 0.05 L 10/23/17 07:28: POC Glucose (mg/dL) 124 H 10/23/17 06:15: WBC 16.3 H, RBC 4.24, Hgb 12.0, Hct 35.8 L, MCV 84.4, MCH 28.3, MCHC 33.5, RDW 16.5 H, Plt Count 341, MPV 8.8, Gran % 56.5, Lymph % (Auto) 35.1 H, [place] % (Auto) 7.5 H, Eos % (Auto) 0.6 L, Baso % (Auto) 0.3, Gran # 9.21 H, Lymph # (Auto) 5.7 H, [place] # (Auto) 1.2 H, Eos # (Auto) 0.1, Baso # (Auto) 0.05 10/23/17 06:15: Valproic Acid 62 10/23/17 06:15: Triglycerides 200 H, Cholesterol 194, LDL Cholesterol Direct 125 , HDL Cholesterol 37 10/23/17 06:15: RPR Nonreactive 10/23/17 06:15: TSH 3rd Generation 4.51 10/23/17 06:15: Fasting Glucose 145 H 10/22/17 21:44: POC Glucose (mg/dL) 224 H 10/22/17 18:00: WBC 14.2 H D, RBC 4.21, Hgb 12.0, Hct 35.4 L, MCV 84.1, MCH 28.5 , MCHC 33.9, RDW 16.4 H, Plt Count 337, MPV 8.6, Gran % 49.4 L, Lymph % (Auto) 41.6 H, [place] % (Auto) 8.1 H, Eos % (Auto) 0.6 L, Baso % (Auto) 0.3, Gran # 6.99 H, Lymph # (Auto) 5.9 H, [place] # (Auto) 1.2 H, Eos # (Auto) 0.1, Baso # (Auto) 0.04 10/22/17 18:00: Alcohol, Quantitative < 10 10/22/17 18:00: Salicylates < 1 L, Acetaminophen < 10.0 L 10/22/17 18:00: Urine Opiates Screen Negative, Urine Methadone Screen Negative, Ur Barbiturates Screen Negative, Ur Phencyclidine Scrn Negative, Ur Amphetamines Screen Negative, U Benzodiazepines Scrn Negative, U Oth Cocaine Metabols Negative, U Cannabinoids Screen Negative 10/22/17 18:00: Sodium 138, Potassium 4.1, Chloride 99, Carbon Dioxide 26, Anion Gap 17, BUN 5 L, Creatinine 0.3 L, Est GFR ( Amer) > 60, Est GFR ( Non-Af Amer) > 60, Random Glucose 120 H, Calcium 9.3, Total Bilirubin < 0.1 L, AST 24, ALT 17, Alkaline Phosphatase 85, Total Protein 7.9, Albumin 4.4, Globulin 3.5, Albumin/Globulin Ratio 1.2 10/22/17 18:00: Urine Color Colorless, Urine Appearance Clear, Urine pH 6.0, Ur Specific [place] <= 1.005, Urine Protein Negative, Urine Glucose (UA) Negative, Urine Ketones Negative, Urine Blood Negative, Urine Nitrate Negative, Urine Bilirubin Negative, Urine Urobilinogen 0.2, Ur Leukocyte Esterase Trace H, Urine RBC Negative, Urine WBC 0 - 2, Ur Epithelial Cells 0 - 2 Vital Signs Temp Pulse Pulse Resp BP Pulse Ox 10/24/17 08:23 106/71 10/24/17 06:49 97.3 F L 77 18 106/71 10/23/17 16:17 93 H 125/85 10/23/17 08:22 117/87 10/23/17 06:36 97.8 F 90 20 117/87 10/22/17 22:27 96 H 18 10/22/17 20:09 95 10/22/17 17:44 98.2 F 98 H 18 125/85 99 DSM 5 Symptoms Update: shortly patient is 41 years old -[place] female, long and debilitating history of schizophrenia vs schizoaffective, treatment resistant, multiple admissions to the psychiatric inpatient unit in the past, including to this hospital (last admission was 10 days ago to this facility), pt was d/c from [facility] Sep 16 2017, currently is followed by [facility] PACT team, pt is on clozaril and Haldol Dec. pt called 911 for depressive symptoms and possible suicidal ideation with the ?plan to cut her wrists (pt denied during the interview), pt was not able to contract for safety in ED. Patient was seen and examined in her room, pt presented to be sleepy, patient reported that she feels okay, nothing is bothering her, patient has childlike demeanor, superficially could be presenting well. pt willing to be f/u by PACT team. pt does not want to be referred to the fdc. pt is aware of her d/c tomorrow. will f/u on labs am. Far patient tolerates medications well, no side effects observed or reported, aims 0, no EPS. pt seems to have leukocytosis improving after tapering off celexa. Impression: Schizoaffective disorder, bipolar type Medication Change: Yes (Celexa decreased) Medical Record Reviewed: Yes Mental Status Examination - Cognitive Function Orientation: Person Memory: Impaired Attention: Poor (some improvement) Concentration: Poor (some improvement) Association: Loose (some improvement) Fund of Knowledge: Poor - Mood Mood: Neutral - Affect Affect: Flat - Speech Speech: Soft - Formal Thought Process Formal Thought Process: Delusions (chronic) - Suicidal Ideation Suicidal Ideation: No - Homicidal Ideation Homicidal Ideation: No Goal/Treatment Plan - Goal/Treatment Plan Need for Continued Stay: Remain at risks for inpatient hospitalization, Severe depression anxiety, Discharge may exacerbated symptoms, Failed transitioning, Severe functional impairment Progress Toward Problem(s) and Goals/Treatment Plan: Milieu/structure/supportive therapy Medical consult appreciated, see medical team note for more detailed info SW consultation for discharge plan and social issues Med management Haldol decanoate 100 mg IM every month due is 11/03/17 (ordered) Clozaril 350 mg by mouth at the nighttime for psychosis Cogentin 1 mg daily Iron pill 325 mg by mouth daily Folic acid 1 mg by mouth daily Haldol 5 mg by mouth daily for psychosis Januvia 50 mg by mouth daily Metformin 1000 mg by mouth twice a day Multivitamins 1 daily Lipitor 20 mg at the nighttime Depakote 1000 a day for mood stabilization Patient is on Clozaril and blood need to be monitored weekly, ,no signs of agranulocytosis. celexa d/c Family involvement Follow up on labs Will monitor closely Pt was educated about risk/benefits and alternatives of medications, coping strategies (safety plan, suicide prevention), relapse prevention, importance of follow up with psychiatrist and therapist, stay away from drugs/alcohol/smoking Estimated Date of D/C: 10/27/17
[2017-10-26] MEDS: Divalproex 500 mg ER (ONCE DAILY formulation) PO SCH (21:31)
[2017-10-27 07:10] VITALS: PULSE 78; TEMP 98
[2017-10-27 07:47] LABS: BASO # 0.03 K/mm3 (0.0-2.0); BASO % 0.3 % (0.0-3.0); EOS # 0.1 (0.0-0.7); EOS % 0.8 % (1.5-5.0); GRAN # 4.5 (1.4-6.5); GRAN % 41.1 % (50.0-68.0); HEMOGLOBIN 10.9 g/dL (12.0-16.0); LYMPH # 5.4 (1.2-3.4); LYMPH % 49.2 % (22.0-35.0); MEAN CELL VOLUME 84.5 fl (80.0-105.0); MEAN CORPUSCULAR HEMOGLOBIN 28.2 pg (25.0-35.0); MEAN CORPUSCULAR HGB CONC 33.4 g/dl (31.0-37.0); MEAN PLATELET VOLUME 8.6 fl (7.0-11.0); MONO # 0.9 (0.1-0.6); MONO % 8.6 % (1.0-6.0); RBC 3.86 10^6/uL (3.5-6.1); RED CELL DISTRIBUTION WIDTH 16.5 % (11.5-14.5); WHITE BLOOD COUNT 10.9 10^3/ul (4.5-11.0)
[2017-10-27] MEDS: Multivitamin Therapeutic Tab PO SCH (08:58)
[2017-10-27 09:02] VITALS: BP 100/77
--- NOTE | 2017-10-27 10:16 | PN ---
DATE: 10/27/2017 I saw her in the bed this morning. She slept well. She is tired. She is still a little bit anxious, but she has told me she is feeling a little bit better. She is on Clozaril, Cogentin, Colace, Cozaar, Depakote, Ecotrin, Feosol, Glucophage, Haldol, Januvia, Lipitor, Maalox, milk of magnesia, Norvasc, Thera-Tabs and Tylenol. OBJECTIVE: She has a 98 temperature, 78 pulse, 100/67 blood pressure, 20 respiratory rate. HEENT: Head is atraumatic, normocephalic. HEART: Regular rate. LUNGS: Decreased breath sounds, but clear. ABDOMEN: Soft, obese, nontender. EXTREMITIES: No edema. DATA: She has a 10.9 white count, 10.9 hemoglobin, 32.6 hematocrit, 313 platelets. Last blood sugar was 127. Overall, I am fairly happy with her as per Psychiatry. Encouraged her to continue treatment and care with Psychiatry. Take the medications; she had suicidal ideation, auditory hallucinations, depression, hypertension, diabetes. She had high white count; hopefully, she will do well. Jason Contreras DO
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
[2017-11-03] MEDS ORDERED: Haloperidol Decanoate 100 mg/ml Inj IM ONE (08:00)
== END 2017-10-27 14:59 | disposition home or self-care (01) | DRG 885 ==
LOC: ED 17:43 → ERH 19:38 → PSYC 20:16
PROVIDERS: ADMIT Psychiatry & Neurology Psychiatry; ATTEND Psychiatry & Neurology Psychiatry
PROC: GZ3ZZZZ Medication Management (ICD-10-PCS; principal; 2017-10-23)
DX: F25.0 Schizoaffective disorder, bipolar type (principal); R45.851 Suicidal ideations; E11.9 Type 2 diabetes mellitus without complications; E78.00 Pure hypercholesterolemia, unspecified; I10 Essential (primary) hypertension; E66.9 Obesity, unspecified; F41.9 Anxiety disorder, unspecified; D72.829 Elevated white blood cell count, unspecified; Z68.28 Body mass index [BMI] 28.0-28.9, adult; Z87.891 Personal history of nicotine dependence

== ENCOUNTER 2017-11-10 12:41 | Inpatient (IN) | payer MEDICARE, MEDICAID ==
[2017-11-10 12:47] VITALS: BMI 28.1
[2017-11-10 13:38] LABS: PH,URINE 6.5 (4.7-8.0); URINE BILIRUBIN NEGATIVE (NEGATIVE); URINE BLOOD LARGE (NEGATIVE); URINE GLUCOSE (UA) 250 mg/dL (NEGATIVE); URINE LEUKOCYTE ESTERASE TRACE Leu/uL (NEGATIVE); URINE PROTEIN TRACE mg/dL (<30 mg/dL); URINE UROBILINOGEN 0.2 E.U./dL (<1 E.U./dL)
[2017-11-10 13:40] LABS: BASO # 0.03 K/mm3 (0.0-2.0); BASO % 0.3 % (0.0-3.0); EOS % 0.3 % (1.5-5.0); GRAN # 6.04 (1.4-6.5); GRAN % 56.4 % (50.0-68.0); HEMOGLOBIN 12.1 g/dL (12.0-16.0); LYMPH # 3.7 (1.2-3.4); MEAN CELL VOLUME 84.8 fl (80.0-105.0); MEAN CORPUSCULAR HEMOGLOBIN 28.7 pg (25.0-35.0); MEAN CORPUSCULAR HGB CONC 33.8 g/dl (31.0-37.0); MEAN PLATELET VOLUME 8.7 fl (7.0-11.0); MONO # 0.9 (0.1-0.6); RBC 4.22 10^6/uL (3.5-6.1); RED CELL DISTRIBUTION WIDTH 16.7 % (11.5-14.5); WHITE BLOOD COUNT 10.7 10^3/ul (4.5-11.0)
[2017-11-10 13:44] LABS: URINE APPEARANCE SL CLOUDY (CLEAR); URINE COLOR YELLOW (YELLOW)
[2017-11-10 13:52] LABS: HCG,QUALITATIVE URINE NEGATIVE (NEGATIVE)
[2017-11-10 13:53] LABS: ACETAMINOPHEN < 10.0 ug/ml (10.0-20.0); SALICYLATE < 1 mg/dL (2.0-20.0)
[2017-11-10 13:54] LABS: ALB/GLOB RATIO 1.2 (1.1-1.8); ALBUMIN 4.3 g/dL (3.0-4.8); ALT/SGPT 17 U/L (7-56); AST/SGOT 22 U/L (14-36); BLOOD UREA NITROGEN 8 mg/dL (7-21); CALCIUM 9.5 mg/dL (8.4-10.5); GFR AFRICAN-AMERICAN > 60; GFR NON-AFRICAN AMERICAN > 60
[2017-11-10 13:57] LABS: BARBITURATES, UR NEGATIVE (NEGATIVE); BENZODIAZEPINES, UR NEGATIVE (NEGATIVE); OPIATES, UR NEGATIVE (NEGATIVE); PHENCYCLIDINE, UR NEGATIVE (NEGATIVE)
--- NOTE | 2017-11-10 13:58 | ED PDOC ---
Arrival/HPI - General Chief Complaint: Psychiatric Evaluation Time Seen by Provider: 11/10/17 12:46 Historian: Patient - History of Present Illness Narrative History of Present Illness (Text): 11/10/17 13:57 41 year old female, whose past medical history includes bipolar'schizophrenia/ schizoaffective disorders, who presents to the emergency department s/p suicide attempt. Patient states she tried to cut her left wrist. Patient denies any fever, chills, chest pain, shortness of breath, nausea, vomiting, diarrhea, urinary symptoms, back pain, neck pain, headache, dizziness, or any other complaints. Time/Duration: Prior to Arrival Symptom Onset: Sudden Symptom Course: Unchanged Activities at Onset: Light Context: Home Past Medical History - Provider Review Nursing Documentation Reviewed: Yes - Past History Past History: Non-Contributing - Infectious Disease Hx of Infectious Diseases: None - Tetanus Immunization Tetanus Immunization: Unknown - Cardiac Hx Hypertension: Yes - Pulmonary Hx Tuberculosis: No - Neurological Hx Seizures: Yes - HEENT Hx HEENT Disorder: No - Endocrine/Metabolic Hx Endocrine Disorders: Yes Hx Diabetes Mellitus Type 2: Yes - Hematological/Oncological Hx Anemia: Yes - Integumentary Hx Dermatological Disorder: No - Musculoskeletal/Rheumatological Hx Musculoskeletal Disorders: No - Gastrointestinal Hx Gastrointestinal Disorders: No - Genitourinary/Gynecological Hx Sexually Transmitted Diseases: No - Psychiatric Hx Anxiety: Yes Hx Bipolar Disorder: Yes Hx Depression: Yes Hx Schizophrenia: Yes Hx Substance Use: No - Anesthesia Hx Anesthesia: No Hx Anesthesia Reactions: No Hx Malignant Hyperthermia: No - Suicidal Assessment Feels Threatened In Home Enviroment: No Family/Social History - Physician Review Nursing Documentation Reviewed: Yes Family/Social History: Unknown Family HX Smoking Status: Former Smoker Hx Alcohol Use: No Hx Substance Use: No Hx Substance Use Treatment: No Allergies/Home Meds Allergies/Adverse Reactions: Allergies No Known Allergies Allergy (Verified 10/22/17 23:52) Home Medications: Home Meds Medication Instructions Recorded Confirmed Atorvastatin [Lipitor] 20 mg PO HS 11/10/17 11/10/17 Citalopram [celEXA] 20 mg PO DAILY 11/10/17 11/10/17 Ferrous Sulfate [Feosol] 325 mg PO DAILY 11/10/17 11/10/17 Folic Acid 1 mg PO DAILY 11/10/17 11/10/17 Haloperidol [Haldol] 5 mg PO DAILY 11/10/17 11/10/17 Haloperidol [Haldol] 100 mg IM Q30D 11/10/17 11/10/17 SITagliptin [Januvia] 50 mg PO DAILY 11/10/17 11/10/17 cloZAPine [Clozaril] 350 mg PO HS 11/10/17 11/10/17 Review of Systems - Physician Review All systems were reviewed & negative as marked: Yes - Review of Systems Constitutional: Normal Eyes: Normal ENT: Normal Respiratory: Normal. absent: SOB, Cough Cardiovascular: Normal. absent: Chest Pain Gastrointestinal: Normal. absent: Abdominal Pain Genitourinary Female: Normal. absent: Dysuria, Frequency Musculoskeletal: Normal. absent: Back Pain, Neck Pain Skin: Normal. absent: Rash Neurological: Normal. absent: Headache, Dizziness Endocrine: Normal Hemo/Lymphatic: Normal Psychiatric: Suicidal Ideation Physical Exam Vital Signs Temp Pulse Resp BP Pulse Ox 11/10/17 14:56 98.7 F 90 18 107/64 100 - Systems Exam Head: Present: Atraumatic, Normocephalic Pupils: Present: PERRL Extroacular Muscles: Present: EOMI Conjunctiva: Present: Normal Mouth: Present: Moist Mucous Membranes Neck: Present: Normal Range of Motion Respiratory/Chest: Present: Clear to Auscultation, Good Air Exchange. No: Respiratory Distress, Accessory Muscle Use Cardiovascular: Present: Regular Rate and Rhythm, Normal S1, S2. No: Murmurs Abdomen: No: Tenderness, Distention, Peritoneal Signs Back: Present: Normal Inspection Upper Extremity: Present: Normal Inspection. No: Cyanosis, Edema Lower Extremity: Present: Normal Inspection. No: Edema Neurological: Present: GCS=15, CN II-XII Intact, Speech Normal Skin: Present: Warm, Dry, Laceration (Superficial laceration on left forearm). No: Rashes Psychiatric: Present: Alert, Oriented x 3, Normal Insight, Normal Concentration Medical Decision Making ED Course and Treatment: 11/10/17 13:59 Impression: 41 year old female presents to the emergency department s/p suicide attempt. Plan: -- Urinalysis -- Urine CUlture -- HCG, qualitative stat -- Reassess and disposition Progress Notes: Pt results are negative. Pt is medically cleared. 11/10/17 18:15 recent cxr neg no cardiopulm complaitns - Lab Interpretations Lab Results: 11/10/17 13:15 11/10/17 13:15 Lab Results 11/10/17 13:15: Alcohol, Quantitative < 10 11/10/17 13:15: Salicylates < 1 L, Acetaminophen < 10.0 L 11/10/17 13:15: Sodium 141, Potassium 4.0, Chloride 101, Carbon Dioxide 23, Anion Gap 21 H, BUN 8, Creatinine 0.4 L, Est GFR ( Amer) > 60, Est GFR ( Non-Af Amer) > 60, Random Glucose 180 H, Calcium 9.5, Magnesium 1.6 L, Total Bilirubin 0.1 L, AST 22, ALT 17, Alkaline Phosphatase 91, Total Protein 8.0, Albumin 4.3, Globulin 3.6, Albumin/Globulin Ratio 1.2 11/10/17 13:15: WBC 10.7, RBC 4.22, Hgb 12.1, Hct 35.8 L, MCV 84.8, MCH 28.7, MCHC 33.8, RDW 16.7 H, Plt Count 362, MPV 8.7, Gran % 56.4, Lymph % (Auto) 35.0 , [place] % (Auto) 8.0 H, Eos % (Auto) 0.3 L, Baso % (Auto) 0.3, Gran # 6.04, Lymph # (Auto) 3.7 H, [place] # (Auto) 0.9 H, Eos # (Auto) 0.0, Baso # (Auto) 0.03 11/10/17 13:00: Urine Opiates Screen Negative, Urine Methadone Screen Negative, Ur Barbiturates Screen Negative, Ur Phencyclidine Scrn Negative, Ur Amphetamines Screen Negative, U Benzodiazepines Scrn Negative, U Oth Cocaine Metabols Negative, U Cannabinoids Screen Negative 11/10/17 13:00: Urine Color Yellow, Urine Appearance Sl cloudy, Urine pH 6.5, Ur Specific [place] 1.025, Urine Protein Trace H, Urine Glucose (UA) 250 H, Urine Ketones 15 H, Urine Blood Large H, Urine Nitrate Negative, Urine Bilirubin Negative, Urine Urobilinogen 0.2, Ur Leukocyte Esterase Trace H, Urine RBC 15 - 20, Urine WBC 2 - 5, Ur Epithelial Cells 4 - 5, Urine Bacteria Mod, Urine HCG, Qual Negative - Medication Orders Current Medication Orders: Amlodipine Besylate (Norvasc) 10 mg PO DAILY NITIN Atorvastatin Calcium (Lipitor) 20 mg PO HS NITIN Benztropine Mesylate (Cogentin) 1 mg PO HS NITIN Clozapine (Clozaril) 350 mg PO HS NITIN PRN Reason: Protocol Divalproex Sodium (Depakote Dr(*Bid*)) 500 mg PO BID NITIN Ferrous Sulfate (Feosol) 324 mg PO DAILY [facility] Folic Acid (Folic Acid) 1 mg PO DAILY NITIN Haloperidol (Haldol) 5 mg PO HS NITIN PRN Reason: Protocol Metformin HCl (Glucophage) 1,000 mg PO BID [facility] Multivitamins (Thera Tab) 1 tab PO 0800 NITIN Sitagliptin Phosphate (Januvia) 50 mg PO DAILY [facility] Disposition/Present on Arrival - Present on Arrival Any Indicators Present on Arrival: No History of DVT/PE: No History of Uncontrolled Diabetes: No Urinary Catheter: No History of Decub. Ulcer: No History Surgical Site Infection Following: None - Disposition Have Diagnosis and Disposition been Completed?: Yes Diagnosis: Schizophrenia Disposition: HOSPITALIZED Disposition Time: 04:00 Patient Problems: Current Active Problems Problem Status Onset Schizophrenia Acute Condition: STABLE
[2017-11-10 14:09] LABS: URINE RBC 15 - 20 /hpf (0-2)
[2017-11-10 14:10] LABS: URINE BACTERIA MOD (NEG)
--- NOTE | 2017-11-10 17:55 | PCM.BM ---
<SebastianTray - Last Filed: 11/10/17 17:52> Treatment Plan Problems - Problems identified on initial assessmt Ineffecting coping Date Initiated: 11/10/17 Time Initiated: 17:53 Assessment reference: HP, NA Status: Active Self Care Deficit Date Initiated: 11/10/17 Time Initiated: 17:54 Assessment reference: HP, NA Status: Active Social Isolation Date Initiated: 11/10/17 Time Initiated: 17:55 Assessment reference: HP, NA Status: Active Treatment assets and liabiliti Patient Assests: adapts well, cooperative, self-reliant, ADL independent, negotiates basic needs, cognitively intact, good interpersonal skills Patient Liabilities: live alone, dietary restrictions, medical problems - Milieu Protocol Maintain good personal hygiene: daily Encourage regular showers, daily Remind patient to perform daily oral care, daily Assist patient to perform ADL's Maintain personal safety: daily Educate patient to report safety concerns to staff, daily Monitor environment for contraband/sharps Medication safety: Monitor for expected outcome, potential side effects: daily, Assess barriers to learning: daily, Assess readiness for medication education: daily Discharge/Continuing Care - Education Needs Education Needs: Patient Medication, Patient Diagnosis/Disease Process, Patient Coping Skills, Patient Community resources, Patient Activities of Daily Living, Patient Health Practices/Safety <Zonia José - Last Filed: 11/11/17 11:32> - Diagnosis (1) Schizoaffective disorder, bipolar type Status: Chronic Interventions: 11/11/17 11:32 Psychoeducation/psychotherapy Psychopharmacology/adjustment of medications as needed/ monitoring possible side effects Evaluate pt on daily basis Compliance with medications and follow up appointments Long acting medication if pt is noncompliant with pill form Suicide and homicide risk assessment and prevention, coping strategies, safety plan Relapse prevention Reduction of symptoms Improve functional status Possible assertive community treatment Cognitive behavioral therapy Family involvement Possible social skill training as outpatient <Lucila Capone - Last Filed: 11/13/17 11:33>
--- NOTE | 2017-11-10 18:54 | CARD ---
APPROVED REPORT EKG Measurement Heart [id number] [id number] <Conclusion> Sinus tachycardia Minimal voltage criteria for LVH, may be normal variant Nonspecific ST abnormality Abnormal ECG
[2017-11-11 07:10] LABS: GLUCOSE,FASTING 154 mg/dL (65-110); HDL CHOLESTEROL 31 mg/dL (29-60)
[2017-11-11 07:21] LABS: LDL CHOLESTEROL 139 mg/dL (0-129)
[2017-11-11 07:30] LABS: FREE T4 0.92 ng/dL (0.78-2.19)
[2017-11-11] MEDS: Divalproex 500 mg DR(BID formulation) PO SCH ×2 (09:16→16:44)
[2017-11-11] MEDS: Multivitamin Therapeutic Tab PO SCH (09:16)
--- NOTE | 2017-11-11 11:32 | PCM.PYCHPN ---
Psychiatric Progress Note - Psychiatric Progress Note Patient seen today, length of contact: 30 minutes Patient Chief Complaint: "I had argument with my mom, she thought that I'm buying unnecessary things, I felt like she is babysitting me, when she left to take garbage out I was feeling very depressed and I wanted to show her how upset I was and I cut my wrist with a knife" Problems Identified/Issues Discussed: Suicide/ homicide prevention, past psychiatric h/o, current psychiatric symptoms , medical problems, risk/benefits and alternatives of medications, medications compliance, coping strategies, substance abuse h/o, relapse prevention, importance of follow up with psychiatrist and therapist, discharge plan. Medical Problems: hypertension, diabetes, dyslipidemia Diagnostic Results: 11/10/17 13:15 11/10/17 13:15 Lab Results 11/11/17 07:20: POC Glucose (mg/dL) 155 H 11/11/17 06:56: Valproic Acid 32 L 11/11/17 06:56: Free T4 0.92, TSH 3rd Generation 1.53 11/11/17 06:56: Fasting Glucose 154 H, Triglycerides 197 H, Cholesterol 199, LDL Cholesterol Direct 139 H, HDL Cholesterol 31 11/10/17 21:03: POC Glucose (mg/dL) 214 H 11/10/17 13:15: Alcohol, Quantitative < 10 11/10/17 13:15: Salicylates < 1 L, Acetaminophen < 10.0 L 11/10/17 13:15: Sodium 141, Potassium 4.0, Chloride 101, Carbon Dioxide 23, Anion Gap 21 H, BUN 8, Creatinine 0.4 L, Est GFR ( Amer) > 60, Est GFR ( Non-Af Amer) > 60, Random Glucose 180 H, Calcium 9.5, Magnesium 1.6 L, Total Bilirubin 0.1 L, AST 22, ALT 17, Alkaline Phosphatase 91, Total Protein 8.0, Albumin 4.3, Globulin 3.6, Albumin/Globulin Ratio 1.2 11/10/17 13:15: WBC 10.7, RBC 4.22, Hgb 12.1, Hct 35.8 L, MCV 84.8, MCH 28.7, MCHC 33.8, RDW 16.7 H, Plt Count 362, MPV 8.7, Gran % 56.4, Lymph % (Auto) 35.0 , [place] % (Auto) 8.0 H, Eos % (Auto) 0.3 L, Baso % (Auto) 0.3, Gran # 6.04, Lymph # (Auto) 3.7 H, [place] # (Auto) 0.9 H, Eos # (Auto) 0.0, Baso # (Auto) 0.03 11/10/17 13:00: Urine Opiates Screen Negative, Urine Methadone Screen Negative, Ur Barbiturates Screen Negative, Ur Phencyclidine Scrn Negative, Ur Amphetamines Screen Negative, U Benzodiazepines Scrn Negative, U Oth Cocaine Metabols Negative, U Cannabinoids Screen Negative 11/10/17 13:00: Urine Color Yellow, Urine Appearance Sl cloudy, Urine pH 6.5, Ur Specific [place] 1.025, Urine Protein Trace H, Urine Glucose (UA) 250 H, Urine Ketones 15 H, Urine Blood Large H, Urine Nitrate Negative, Urine Bilirubin Negative, Urine Urobilinogen 0.2, Ur Leukocyte Esterase Trace H, Urine RBC 15 - 20, Urine WBC 2 - 5, Ur Epithelial Cells 4 - 5, Urine Bacteria Mod, Urine HCG, Qual Negative Vital Signs Temp Pulse Pulse Resp BP Pulse Ox 11/11/17 09:16 106/61 11/11/17 06:29 98.0 F 78 14 99/62 L 11/10/17 16:37 68 16 11/10/17 16:16 88 16 110/67 11/10/17 14:56 98.7 F 90 18 107/64 100 DSM 5 Symptoms Update: Refer to the Psychiatric Assess & History-Initial dated 10/22/17 for this H & P. Reviewed, no changes shortly patient is 41 years old -[place] female, long and debilitating history of schizophrenia vs schizoaffective, treatment resistant, multiple admissions to the psychiatric inpatient unit in the past, including to this hospital (last admission was on 10/27/17), pt was d/c from [facility] Sep 16 2017, currently is followed by [facility] PACT team, pt is on clozaril and Haldol Dec. pt was brought in by EMS after pt's mother called 911 because pt verbalized SI, superficially cut her left wrist (no sutures, no blood), pt had decreased care, her apartment was unkempt, pt requires further evaluation and stabilization, meds adjustment. Patient was seen and examined in her room. discussed with staff, chart reviewed. last admission pt was discharged on the following meds: Haldol decanoate 100 mg IM monthly last injection was scheduled on 11/03/17, but not sure if she got it or not Clozaril 350 mg by mouth at the nighttime for psychosis Cogentin 1 mg daily Iron pill 325 mg by mouth daily Folic acid 1 mg by mouth daily Haldol 5 mg by mouth daily for psychosis Januvia 50 mg by mouth daily Metformin 1000 mg by mouth twice a day Multivitamins 1 daily Lipitor 20 mg at the nighttime Depakote 500 mg twice a day for mood stabilization Patient is on Clozaril and blood need to be monitored weekly patient presented to be withdrawn, depressed, flat affect, patient reported that she had argument with her mom about her frequent shopping and overspending , patient reported that prior to come to the hospital yesterday at the morning time they had argument, patient reported when her mother stepped out to take garbage she was feeling "hopeless, and depressed, I was feeling very down, I wanted to show her how upset I was, I grab a knife and I cut my wrist" patient said her intent was to show her mother how upset she was and patient denied that she wanted to kill herself. Patient reported that she is compliant with the medications, no side effects. Patient reported that she is hearing voices "they say that they're going to attack me, I was scared, I didn't know what to do I did not know where to go". as per collateral information from the PACT team Lisa BERGERON pt was not taking care of herself, apartment was a mess, pt also was overspending. Pt was compliant with medications. From the previous admission: patient was admitted to ICU at [facility] in June 23 through June 25, status post overdose on Clozaril, status post suicidal attempt. Patient was then transferred to [facility] where she spent past 3 months patient was discharged from the [facility] September 16, 2017. pt reported no side effects from meds, none observed AIMS 0, no EPS. Impression: schizoaffective disorder Medication Change: No (will monitor for now) Medical Record Reviewed: Yes Consults ordered or reviewed: UA was positive for leukocyte esterase saw pt. Mental Status Examination - Cognitive Function Orientation: Person, Place Memory: Intact Attention: Poor Concentration: Poor Association: Loose Fund of Knowledge: Poor - Mood Mood: Depressed - Affect Affect: Constricted - Speech Speech: Slurred - Formal Thought Process Formal Thought Process: Hallucinations, Delusions, Paranoia, Loosening of associations - Suicidal Ideation Suicidal Ideation: No - Homicidal Ideation Homicidal Ideation: No Goal/Treatment Plan - Goal/Treatment Plan Need for Continued Stay: Remain at risks for inpatient hospitalization, Severe depression anxiety, Discharge may exacerbated symptoms, Failed transitioning, Severe functional impairment Progress Toward Problem(s) and Goals/Treatment Plan: Milieu/structure/supportive therapy Medical consult appreciated, see medical team note for more detailed info SW consultation for discharge plan and social issues Med management Haldol decanoate 100 mg IM every month was last dose ? 11/03/17 Clozaril 350 mg by mouth at the nighttime for psychosis Cogentin 1 mg daily Iron pill 325 mg by mouth daily Folic acid 1 mg by mouth daily Haldol 5 mg by mouth daily for psychosis Januvia 50 mg by mouth daily Metformin 1000 mg by mouth twice a day Multivitamins 1 daily Lipitor 20 mg at the nighttime Depakote 1000 a day for mood stabilization depakote level was 32 11/11/17, most likely pt was noncompliant, last admission pt was on the same dose of Depakote but level was 62 10/23/17 Patient is on Clozaril and blood need to be monitored weekly, ,no signs of agranulocytosis. celexa d/c because of potential side effect Leukocytosis (last admission) Family involvement Follow up on labs Will monitor closely Pt was educated about risk/benefits and alternatives of medications, coping strategies (safety plan, suicide prevention), relapse prevention, importance of follow up with psychiatrist and therapist, stay away from drugs/alcohol/smoking Estimated Date of D/C: 11/17/17
[2017-11-11] MEDS: Insulin Reg-MEDIUM-Coverage SC SCH ×3 (12:41→22:31)
--- NOTE | 2017-11-11 19:03 | CON ---
DATE: 11/11/2017 HISTORY OF PRESENT ILLNESS: She is in the Psychiatric floor. I know Gato very well from many hospitalizations in the Psychiatric Unit. She is a 41-year-old -Russian female who apparently had a suicidal attempt of cutting her wrist, her wrist had some scrapes, not a real major attempt, but she had a fight with her mother, I understand and she is very upset and was threatening to kill herself back in the fifth floor. PAST MEDICAL HISTORY: She has a past medical history of bipolar, schizophrenia, schizoaffective disorder, suicidal attempts, auditory hallucinations, hypertension, diabetes, high cholesterol, anemia, anxiety, depression. FAMILY HISTORY: Unknown. SOCIAL HISTORY: She is a former smoker. No alcohol. No drugs. ALLERGIES: NO KNOWN DRUG ALLERGIES. MEDICATIONS: She is on Lipitor, Celexa, Feosol, Haldol, Januvia, Clozaril. REVIEW OF SYSTEMS: No acute vision or hearing changes. No shortness of breath or cough. No chest pain. No palpitations. No nausea, vomiting, constipation, or diarrhea. No abdominal pain. No problems urinating. No back pain. No neck pain. No skin issues except for the left arm zheng that are faint, tried to hurt herself. She is depressed, alert. No headache. Not dizzy. Suicidal thoughts. PHYSICAL EXAMINATION: VITAL SIGNS: She has 98.7 temp, 90 pulse, 18 respiratory rate, 107/64 blood pressure, 100% O2 sat on room air. HEENT: Head is atraumatic and normocephalic. Extraocular muscles are intact. Pupils are equally reactive to light and accommodation. Throat is moist. NECK: Supple. HEART: Regular rate. Normal S1 and S2. LUNGS: Decreased breath sounds. Fair inspiration, but clear to auscultation. No wheezes, no rhonchi, no rales. ABDOMEN: Soft and nontender. Positive bowel sounds. Mildly obese. EXTREMITIES: No edema bilaterally. Move all 4 extremities well. NEUROLOGIC: GCS is 15. Cranial nerves II through XII grossly intact. Normal speech. She can stick her tongue out midline. Close her eyes tight. Can raise her arms over her head. SKIN: Warm and dry except for the left arm has had some superficial lacerations on the left arm and face. PSYCHIATRIC: Alert and oriented x3. Depressed and sad. LABORATORY DATA: She had multiple tests done. She has a white count of 10.7, hemoglobin 12.1, hematocrit 35.8, platelets of 362. Sodium 141, potassium was 4, BUN 8, creatinine 0.4, GFR is greater than 60. Sugar has ranged from 180, then it went to 214 and to 155, we will check her before meals and at bedtime with moderate insulin coverage. Calcium 9.5, magnesium 1.6, total bilirubin is 0.1, AST is 22, ALT is 17, alkaline phosphatase 91, total protein is 8, albumin is 4.3. Triglycerides are high at 197, cholesterol is 199. TSH 1.53, which is okay. Urine is positive for moderate bacteria and negative for . Status post suicidal ideation and attempt. She has diabetes, hypertension, high cholesterol, bipolar, schizophrenia, anemia, UTI, depression. I am going to put her on nitrofurantoin. Check her labs tomorrow. Encouraged her to drink 2 glasses of water. I will watch her very closely. Thank you very much for allowing me to participate in the care. Jason Contreras DO MTDSantos
[2017-11-12 06:47] VITALS: O2SAT 99
[2017-11-12] MEDS: Insulin Reg-MEDIUM-Coverage SC SCH ×3 (07:06→21:21)
[2017-11-12 07:15] LABS: HEMOGLOBIN 11.1 g/dL (12.0-16.0); MEAN CELL VOLUME 84.4 fl (80.0-105.0); MEAN CORPUSCULAR HEMOGLOBIN 27.9 pg (25.0-35.0); MEAN PLATELET VOLUME 8.6 fl (7.0-11.0); RBC 3.98 10^6/uL (3.5-6.1); RED CELL DISTRIBUTION WIDTH 16.4 % (11.5-14.5); WHITE BLOOD COUNT 10.9 10^3/ul (4.5-11.0)
[2017-11-12 07:46] LABS: ALB/GLOB RATIO 1.1 (1.1-1.8); ALBUMIN 3.8 g/dL (3.0-4.8); ALT/SGPT 14 U/L (7-56); AST/SGOT 28 U/L (14-36); BLOOD UREA NITROGEN 9 mg/dL (7-21); GFR AFRICAN-AMERICAN > 60; GFR NON-AFRICAN AMERICAN > 60
[2017-11-12] MEDS: Divalproex 500 mg DR(BID formulation) PO SCH ×2 (09:05→17:52)
[2017-11-12] MEDS: Multivitamin Therapeutic Tab PO SCH (09:05)
--- NOTE | 2017-11-12 10:34 | PCM.PYCHPN ---
Psychiatric Progress Note - Psychiatric Progress Note Patient seen today, length of contact: 30 minutes Patient Chief Complaint: "I am alright, I am alright" Problems Identified/Issues Discussed: Suicide/ homicide prevention, past psychiatric h/o, current psychiatric symptoms , medical problems, risk/benefits and alternatives of medications, medications compliance, coping strategies, substance abuse h/o, relapse prevention, importance of follow up with psychiatrist and therapist, discharge plan. Medical Problems: hypertension, diabetes, dyslipidemia Diagnostic Results: 11/10/17 13:15 11/10/17 13:15 Lab Results 11/11/17 07:20: POC Glucose (mg/dL) 155 H 11/11/17 06:56: Valproic Acid 32 L 11/11/17 06:56: Free T4 0.92, TSH 3rd Generation 1.53 11/11/17 06:56: Fasting Glucose 154 H, Triglycerides 197 H, Cholesterol 199, LDL Cholesterol Direct 139 H, HDL Cholesterol 31 11/10/17 21:03: POC Glucose (mg/dL) 214 H 11/10/17 13:15: Alcohol, Quantitative < 10 11/10/17 13:15: Salicylates < 1 L, Acetaminophen < 10.0 L 11/10/17 13:15: Sodium 141, Potassium 4.0, Chloride 101, Carbon Dioxide 23, Anion Gap 21 H, BUN 8, Creatinine 0.4 L, Est GFR ( Amer) > 60, Est GFR ( Non-Af Amer) > 60, Random Glucose 180 H, Calcium 9.5, Magnesium 1.6 L, Total Bilirubin 0.1 L, AST 22, ALT 17, Alkaline Phosphatase 91, Total Protein 8.0, Albumin 4.3, Globulin 3.6, Albumin/Globulin Ratio 1.2 11/10/17 13:15: WBC 10.7, RBC 4.22, Hgb 12.1, Hct 35.8 L, MCV 84.8, MCH 28.7, MCHC 33.8, RDW 16.7 H, Plt Count 362, MPV 8.7, Gran % 56.4, Lymph % (Auto) 35.0 , [place] % (Auto) 8.0 H, Eos % (Auto) 0.3 L, Baso % (Auto) 0.3, Gran # 6.04, Lymph # (Auto) 3.7 H, [place] # (Auto) 0.9 H, Eos # (Auto) 0.0, Baso # (Auto) 0.03 11/10/17 13:00: Urine Opiates Screen Negative, Urine Methadone Screen Negative, Ur Barbiturates Screen Negative, Ur Phencyclidine Scrn Negative, Ur Amphetamines Screen Negative, U Benzodiazepines Scrn Negative, U Oth Cocaine Metabols Negative, U Cannabinoids Screen Negative 11/10/17 13:00: Urine Color Yellow, Urine Appearance Sl cloudy, Urine pH 6.5, Ur Specific [place] 1.025, Urine Protein Trace H, Urine Glucose (UA) 250 H, Urine Ketones 15 H, Urine Blood Large H, Urine Nitrate Negative, Urine Bilirubin Negative, Urine Urobilinogen 0.2, Ur Leukocyte Esterase Trace H, Urine RBC 15 - 20, Urine WBC 2 - 5, Ur Epithelial Cells 4 - 5, Urine Bacteria Mod, Urine HCG, Qual Negative Vital Signs Temp Pulse Pulse Resp BP Pulse Ox 11/11/17 09:16 106/61 11/11/17 06:29 98.0 F 78 14 99/62 L 11/10/17 16:37 68 16 11/10/17 16:16 88 16 110/67 11/10/17 14:56 98.7 F 90 18 107/64 100 DSM 5 Symptoms Update: shortly patient is 41 years old -[place] female, long and debilitating history of schizophrenia vs schizoaffective, treatment resistant, multiple admissions to the psychiatric inpatient unit in the past, including to this hospital (last admission was on 10/27/17), pt was d/c from [facility] Sep 16 2017, currently is followed by [facility] PACT team, pt is on clozaril and Haldol Dec. pt was brought in by EMS after pt's mother called 911 because pt verbalized SI, superficially cut her left wrist (no sutures, no blood), pt had decreased care, her apartment was unkempt, pt requires further evaluation and stabilization, meds adjustment. patient presented to be sleepy today, hard to be aroused, patient keeps repeating "I am all right, I'm alright", patient reported that she does not hear any voices, denied that she wants to harm herself, patient presented to bewithdrawn and depressed. 11/10/17: as per collateral information from the PACT team Lisa BERGERON pt was not taking care of herself, apartment was a mess, pt also was overspending. Pt was compliant with medications. From the previous admission: patient was admitted to ICU at [facility] in June 23 through June 25, status post overdose on Clozaril, status post suicidal attempt. Patient was then transferred to [facility] where she spent past 3 months patient was discharged from the [facility] September 16, 2017. pt reported no side effects from meds, none observed AIMS 0, no EPS. Impression: schizoaffective disorder Medication Change: No (will monitor for now) Medical Record Reviewed: Yes Mental Status Examination - Cognitive Function Orientation: Person, Place Memory: Intact Attention: Poor Concentration: Poor Association: Loose Fund of Knowledge: Poor - Mood Mood: Depressed - Affect Affect: Constricted - Speech Speech: Slurred - Formal Thought Process Formal Thought Process: Hallucinations, Delusions, Paranoia, Loosening of associations - Suicidal Ideation Suicidal Ideation: No - Homicidal Ideation Homicidal Ideation: No Goal/Treatment Plan - Goal/Treatment Plan Need for Continued Stay: Remain at risks for inpatient hospitalization, Severe depression anxiety, Discharge may exacerbated symptoms, Failed transitioning, Severe functional impairment Progress Toward Problem(s) and Goals/Treatment Plan: Milieu/structure/supportive therapy Medical consult appreciated, see medical team note for more detailed info SW consultation for discharge plan and social issues Med management Haldol decanoate 100 mg IM every month was last dose ? 11/03/17 Clozaril 350 mg by mouth at the nighttime for psychosis Cogentin 1 mg daily Iron pill 325 mg by mouth daily Folic acid 1 mg by mouth daily Haldol 5 mg by mouth daily for psychosis Januvia 50 mg by mouth daily Metformin 1000 mg by mouth twice a day Multivitamins 1 daily Lipitor 20 mg at the nighttime Depakote 1000 a day for mood stabilization depakote level was 32 11/11/17, most likely pt was noncompliant, last admission pt was on the same dose of Depakote but level was 62 10/23/17 Patient is on Clozaril and blood need to be monitored weekly, ,no signs of agranulocytosis. celexa d/c because of potential side effect Leukocytosis (last admission) Family involvement Follow up on labs Will monitor closely Pt was educated about risk/benefits and alternatives of medications, coping strategies (safety plan, suicide prevention), relapse prevention, importance of follow up with psychiatrist and therapist, stay away from drugs/alcohol/smoking Estimated Date of D/C: 11/17/17
--- NOTE | 2017-11-12 12:44 | PN ---
DATE: 11/12/2017 SUBJECTIVE: I saw Gato in the room, she slept fairly well last night. She is a little bit better than when she came in. She was suicidal. She is on Clozaril, Cogentin, Depakote, Feosol, folic acid, Glucophage, Haldol, Humulin insulin, Januvia, Lipitor, Macrobid, Norvasc and Thera-Tabs. PHYSICAL EXAMINATION: VITAL SIGNS: Temperature 98.1; 83 pulse; 136/88 blood pressure, it is a little bit high for her; 20 respiratory rate; 99% O2 sat on room air, we are keeping an eye on her blood pressure. HEENT: Head is atraumatic, normocephalic. Throat moist. NECK: Supple. HEART: Regular rate. LUNGS: Clear to auscultation. ABDOMEN: Soft, nontender. Positive bowel sounds. Mildly obese. EXTREMITIES: No edema. LABORATORY DATA: She has a 10.9 white count, 11.1 hemoglobin, 32.6 hematocrit and 332 platelets. Sodium 140, potassium 4.4, BUN 9, creatinine 0.3, GFR is greater than 60. Sugars are 157, 147 and 163, not bad. Calcium is total bili is 0.3, AST is 20, ALT is 14, alkaline phosphatase is 67, total protein 7.3, albumin is 3.8 and globulin 3.4. ASSESSMENT AND PLAN: She did have urinary tract infection. She is on medications for that. RPR was nonreactive. Gram positive cocci in the urine. She was seen by Psychiatry and they are adjusting the medications. We will continue with the nitrofurantoin, amlodipine, metformin and iron as per Psychiatry. Jason Contreras DO MTDD
[2017-11-13] MEDS: Insulin Reg-MEDIUM-Coverage SC SCH ×4 (07:32→21:31)
[2017-11-13] MEDS: Multivitamin Therapeutic Tab PO SCH (08:44)
[2017-11-13] MEDS: Divalproex 500 mg DR(BID formulation) PO SCH ×2 (08:45→16:55)
--- NOTE | 2017-11-13 13:57 | PN ---
DATE: 11/13/2017 SUBJECTIVE: I came to see Gato this morning. She was sleeping very sadly on her tummy. She only said to me that she was doing okay feeling. She was very sleepy this morning, arousable Clozaril, Cogentin, Depakote, Feosol, folic acid, Glucophage, Haldol, insulin coverage, Januvia, Lipitor, Macrobid, Norvasc and Thera-Tabs. PHYSICAL EXAMINATION: VITAL SIGNS: She has a 97.7 temp, 81 pulse, 118/80 blood pressure, 20 respiratory rate, 99% O2 sat on room air. HEENT: Head is atraumatic. LUNGS: Clear to auscultation. EXTREMITIES: No edema. Could not hear her heart or abdomen, she is lying on her tummy. LABORATORY DATA: She has a 10.9 white count, 11.1 hemoglobin, 32.6 hematocrit with 333 platelets. Sodium 140, potassium 4.4, BUN 9, creatinine 0.3, GFR is greater than 60. Her blood sugars are between 141 and 163. Calcium is 9, total bili is 0.3, AST is 20, ALT is 14, alkaline phosphatase is 67, total protein 7.3, albumin 3.8, and globulin 3.4. She is on antibiotics for UTI. She is not . RPR was negative. She is being seen by Psychiatry. They are adjusting her medications. We will continue to follow. She is here for suicidal ideation, diabetes, UTI, hypertension, high cholesterol, bipolar, schizophrenia, anemia, depression. I encouraged her to participate, take the medications, do not forget to eat. We will follow. Jason Contreras DO MTDSantos
--- NOTE | 2017-11-13 16:25 | PCM.PYCHPN ---
Psychiatric Progress Note - Psychiatric Progress Note Patient seen today, length of contact: 30 minutes Patient Chief Complaint: "I am better now" Problems Identified/Issues Discussed: Suicide/ homicide prevention, past psychiatric h/o, current psychiatric symptoms , medical problems, risk/benefits and alternatives of medications, medications compliance, coping strategies, substance abuse h/o, relapse prevention, importance of follow up with psychiatrist and therapist, discharge plan. Medical Problems: hypertension, diabetes, dyslipidemia Diagnostic Results: 11/10/17 13:15 11/10/17 13:15 Lab Results 11/11/17 07:20: POC Glucose (mg/dL) 155 H 11/11/17 06:56: Valproic Acid 32 L 11/11/17 06:56: Free T4 0.92, TSH 3rd Generation 1.53 11/11/17 06:56: Fasting Glucose 154 H, Triglycerides 197 H, Cholesterol 199, LDL Cholesterol Direct 139 H, HDL Cholesterol 31 11/10/17 21:03: POC Glucose (mg/dL) 214 H 11/10/17 13:15: Alcohol, Quantitative < 10 11/10/17 13:15: Salicylates < 1 L, Acetaminophen < 10.0 L 11/10/17 13:15: Sodium 141, Potassium 4.0, Chloride 101, Carbon Dioxide 23, Anion Gap 21 H, BUN 8, Creatinine 0.4 L, Est GFR ( Amer) > 60, Est GFR ( Non-Af Amer) > 60, Random Glucose 180 H, Calcium 9.5, Magnesium 1.6 L, Total Bilirubin 0.1 L, AST 22, ALT 17, Alkaline Phosphatase 91, Total Protein 8.0, Albumin 4.3, Globulin 3.6, Albumin/Globulin Ratio 1.2 11/10/17 13:15: WBC 10.7, RBC 4.22, Hgb 12.1, Hct 35.8 L, MCV 84.8, MCH 28.7, MCHC 33.8, RDW 16.7 H, Plt Count 362, MPV 8.7, Gran % 56.4, Lymph % (Auto) 35.0 , [place] % (Auto) 8.0 H, Eos % (Auto) 0.3 L, Baso % (Auto) 0.3, Gran # 6.04, Lymph # (Auto) 3.7 H, [place] # (Auto) 0.9 H, Eos # (Auto) 0.0, Baso # (Auto) 0.03 11/10/17 13:00: Urine Opiates Screen Negative, Urine Methadone Screen Negative, Ur Barbiturates Screen Negative, Ur Phencyclidine Scrn Negative, Ur Amphetamines Screen Negative, U Benzodiazepines Scrn Negative, U Oth Cocaine Metabols Negative, U Cannabinoids Screen Negative 11/10/17 13:00: Urine Color Yellow, Urine Appearance Sl cloudy, Urine pH 6.5, Ur Specific [place] 1.025, Urine Protein Trace H, Urine Glucose (UA) 250 H, Urine Ketones 15 H, Urine Blood Large H, Urine Nitrate Negative, Urine Bilirubin Negative, Urine Urobilinogen 0.2, Ur Leukocyte Esterase Trace H, Urine RBC 15 - 20, Urine WBC 2 - 5, Ur Epithelial Cells 4 - 5, Urine Bacteria Mod, Urine HCG, Qual Negative Vital Signs Temp Pulse Pulse Resp BP Pulse Ox 11/11/17 09:16 106/61 11/11/17 06:29 98.0 F 78 14 99/62 L 11/10/17 16:37 68 16 11/10/17 16:16 88 16 110/67 11/10/17 14:56 98.7 F 90 18 107/64 100 DSM 5 Symptoms Update: shortly patient is 41 years old -[place] female, long and debilitating history of schizophrenia vs schizoaffective, treatment resistant, multiple admissions to the psychiatric inpatient unit in the past, including to this hospital (last admission was on 10/27/17), pt was d/c from [facility] Sep 16 2017, currently is followed by [facility] PACT team, pt is on clozaril and Haldol Dec. pt was brought in by EMS after pt's mother called 911 because pt verbalized SI, superficially cut her left wrist (no sutures, no blood), pt had decreased care, her apartment was unkempt, pt requires further evaluation and stabilization, meds adjustment. patient was seen today at tx team meeting, pt presented with some psychomotor retardation, childlike demeanor pt also has concrete thought process. pt said that she was very down and depressed when she decided to cut her wrists but " now I feel better, I am not suicidal". 11/10/17: as per collateral information from the PACT team Lisa BERGERON pt was not taking care of herself, apartment was a mess, pt also was overspending. Pt was compliant with medications. From the previous admission: patient was admitted to ICU at [facility] in June 23 through June 25, status post overdose on Clozaril, status post suicidal attempt. Patient was then transferred to [facility] where she spent past 3 months patient was discharged from the [facility] September 16, 2017. pt reported no side effects from meds, none observed AIMS 0, no EPS. Impression: schizoaffective disorder Medication Change: No (will monitor for now) Medical Record Reviewed: Yes Mental Status Examination - Cognitive Function Orientation: Person, Place Memory: Intact Attention: Poor Concentration: Poor Association: Loose Fund of Knowledge: Poor - Mood Mood: Depressed - Affect Affect: Constricted - Speech Speech: Slurred - Formal Thought Process Formal Thought Process: Hallucinations, Delusions, Paranoia, Loosening of associations - Suicidal Ideation Suicidal Ideation: No - Homicidal Ideation Homicidal Ideation: No Goal/Treatment Plan - Goal/Treatment Plan Need for Continued Stay: Remain at risks for inpatient hospitalization, Severe depression anxiety, Discharge may exacerbated symptoms, Failed transitioning, Severe functional impairment Progress Toward Problem(s) and Goals/Treatment Plan: Milieu/structure/supportive therapy Medical consult appreciated, see medical team note for more detailed info SW consultation for discharge plan and social issues Med management Haldol decanoate 100 mg IM every month was last dose ? 11/03/17 Clozaril 350 mg by mouth at the nighttime for psychosis Cogentin 1 mg daily Iron pill 325 mg by mouth daily Folic acid 1 mg by mouth daily Haldol 5 mg by mouth daily for psychosis Januvia 50 mg by mouth daily Metformin 1000 mg by mouth twice a day Multivitamins 1 daily Lipitor 20 mg at the nighttime Depakote 1000 a day for mood stabilization depakote level was 32 11/11/17, most likely pt was noncompliant, last admission pt was on the same dose of Depakote but level was 62 10/23/17 Patient is on Clozaril and blood need to be monitored weekly, ,no signs of agranulocytosis. celexa d/c because of potential side effect Leukocytosis (last admission) Family involvement Follow up on labs Will monitor closely Pt was educated about risk/benefits and alternatives of medications, coping strategies (safety plan, suicide prevention), relapse prevention, importance of follow up with psychiatrist and therapist, stay away from drugs/alcohol/smoking Estimated Date of D/C: 11/17/17
[2017-11-14] MEDS: Multivitamin Therapeutic Tab PO SCH (09:08)
[2017-11-14] MEDS: Divalproex 500 mg DR(BID formulation) PO SCH ×2 (09:08→16:36)
[2017-11-14] MEDS: Insulin Reg-MEDIUM-Coverage SC SCH ×4 (09:13→21:15)
--- NOTE | 2017-11-14 14:20 | PN ---
DATE: 11/14/2017 SUBJECTIVE: I saw her resting comfortably in bed. She slept well. She is very tired still, but she tells she is doing a little bit better. She is eating some. She is on Clozaril, Cogentin, Depakote, Feosol, folic acid, Glucophage, Haldol, insulin, Januvia, Lipitor, Macrobid, Norvasc, and Thera-Tabs. PHYSICAL EXAMINATION: VITAL SIGNS: Temperature 98.1, pulse 78, blood pressure 117/79, and respiratory rate 18. HEENT: Head is atraumatic, normocephalic. HEART: Regular rate. LUNGS: Decreased breath sounds, but clear to auscultation. ABDOMEN: Soft, obese, nontender. EXTREMITIES: No edema. LABORATORY DATA: She has a good CBC on 11/12/2017, good SMA-20 on 11/12/2017. Last blood sugar is 169. ASSESSMENT AND PLAN: She has urinary tract infection, on antibiotics. Drug screen looks good. RPR was negative. Did show gram-positive cocci in the urine. There was no sensitivity less than 10,000. They are adjusting her medications for psychological reasons due to her suicidal ideation, bipolar, schizophrenia. She also has diabetes, hypertension, high cholesterol. Continue aggressive treatment and care as per Psychiatry. Jason Contreras DO [facility]
--- NOTE | 2017-11-14 16:50 | PCM.PYCHPN ---
Psychiatric Progress Note - Psychiatric Progress Note Patient seen today, length of contact: 30 minutes Patient Chief Complaint: "I am better now" Problems Identified/Issues Discussed: Suicide/ homicide prevention, past psychiatric h/o, current psychiatric symptoms , medical problems, risk/benefits and alternatives of medications, medications compliance, coping strategies, substance abuse h/o, relapse prevention, importance of follow up with psychiatrist and therapist, discharge plan. Medical Problems: hypertension, diabetes, dyslipidemia Diagnostic Results: 11/10/17 13:15 11/10/17 13:15 Lab Results 11/11/17 07:20: POC Glucose (mg/dL) 155 H 11/11/17 06:56: Valproic Acid 32 L 11/11/17 06:56: Free T4 0.92, TSH 3rd Generation 1.53 11/11/17 06:56: Fasting Glucose 154 H, Triglycerides 197 H, Cholesterol 199, LDL Cholesterol Direct 139 H, HDL Cholesterol 31 11/10/17 21:03: POC Glucose (mg/dL) 214 H 11/10/17 13:15: Alcohol, Quantitative < 10 11/10/17 13:15: Salicylates < 1 L, Acetaminophen < 10.0 L 11/10/17 13:15: Sodium 141, Potassium 4.0, Chloride 101, Carbon Dioxide 23, Anion Gap 21 H, BUN 8, Creatinine 0.4 L, Est GFR ( Amer) > 60, Est GFR ( Non-Af Amer) > 60, Random Glucose 180 H, Calcium 9.5, Magnesium 1.6 L, Total Bilirubin 0.1 L, AST 22, ALT 17, Alkaline Phosphatase 91, Total Protein 8.0, Albumin 4.3, Globulin 3.6, Albumin/Globulin Ratio 1.2 11/10/17 13:15: WBC 10.7, RBC 4.22, Hgb 12.1, Hct 35.8 L, MCV 84.8, MCH 28.7, MCHC 33.8, RDW 16.7 H, Plt Count 362, MPV 8.7, Gran % 56.4, Lymph % (Auto) 35.0 , [place] % (Auto) 8.0 H, Eos % (Auto) 0.3 L, Baso % (Auto) 0.3, Gran # 6.04, Lymph # (Auto) 3.7 H, [place] # (Auto) 0.9 H, Eos # (Auto) 0.0, Baso # (Auto) 0.03 11/10/17 13:00: Urine Opiates Screen Negative, Urine Methadone Screen Negative, Ur Barbiturates Screen Negative, Ur Phencyclidine Scrn Negative, Ur Amphetamines Screen Negative, U Benzodiazepines Scrn Negative, U Oth Cocaine Metabols Negative, U Cannabinoids Screen Negative 11/10/17 13:00: Urine Color Yellow, Urine Appearance Sl cloudy, Urine pH 6.5, Ur Specific [place] 1.025, Urine Protein Trace H, Urine Glucose (UA) 250 H, Urine Ketones 15 H, Urine Blood Large H, Urine Nitrate Negative, Urine Bilirubin Negative, Urine Urobilinogen 0.2, Ur Leukocyte Esterase Trace H, Urine RBC 15 - 20, Urine WBC 2 - 5, Ur Epithelial Cells 4 - 5, Urine Bacteria Mod, Urine HCG, Qual Negative Vital Signs Temp Pulse Pulse Resp BP Pulse Ox 11/11/17 09:16 106/61 11/11/17 06:29 98.0 F 78 14 99/62 L 11/10/17 16:37 68 16 11/10/17 16:16 88 16 110/67 11/10/17 14:56 98.7 F 90 18 107/64 100 DSM 5 Symptoms Update: shortly patient is 41 years old -[place] female, long and debilitating history of schizophrenia vs schizoaffective, treatment resistant, multiple admissions to the psychiatric inpatient unit in the past, including to this hospital (last admission was on 10/27/17), pt was d/c from [facility] Sep 16 2017, currently is followed by [facility] PACT team, pt is on clozaril and Haldol Dec. pt was brought in by EMS after pt's mother called 911 because pt verbalized SI, superficially cut her left wrist (no sutures, no blood), pt had decreased care, her apartment was unkempt, pt requires further evaluation and stabilization, meds adjustment. patient was seen today next to the nursing station. patient appears to be weird, wearing [place] blonde wig with curls, patient has birthday today, seems to have elevated mood. childlike demeanor said that "I had discussion with my mom, she wants me to move to [place], I think it is what I will do", pt has unrealistic plans, very superficial, pt would use professional statements like "I had acute deviation from my baseline", seems learned that expression from multiple psychiatric admissions. 11/10/17: as per collateral information from the PACT team Lisa BERGERON pt was not taking care of herself, apartment was a mess, pt also was overspending. Pt was compliant with medications. From the previous admission: patient was admitted to ICU at [facility] in June 23 through June 25, status post overdose on Clozaril, status post suicidal attempt. Patient was then transferred to [facility] where she spent past 3 months patient was discharged from the [facility] September 16, 2017. pt reported no side effects from meds, none observed AIMS 0, no EPS. Impression: schizoaffective disorder Medication Change: No (will monitor for now) Medical Record Reviewed: Yes Mental Status Examination - Cognitive Function Orientation: Person, Place Memory: Intact Attention: Poor Concentration: Poor Association: Loose Fund of Knowledge: Poor - Mood Mood: Depressed - Affect Affect: Constricted - Speech Speech: Slurred - Formal Thought Process Formal Thought Process: Hallucinations, Delusions, Paranoia, Loosening of associations - Suicidal Ideation Suicidal Ideation: No - Homicidal Ideation Homicidal Ideation: No Goal/Treatment Plan - Goal/Treatment Plan Need for Continued Stay: Remain at risks for inpatient hospitalization, Severe depression anxiety, Discharge may exacerbated symptoms, Failed transitioning, Severe functional impairment Progress Toward Problem(s) and Goals/Treatment Plan: Milieu/structure/supportive therapy Medical consult appreciated, see medical team note for more detailed info SW consultation for discharge plan and social issues Med management Haldol decanoate 100 mg IM every month was last dose was 11/03/17 confirmed by PACT Clozaril 350 mg by mouth at the nighttime for psychosis Cogentin 1 mg daily Iron pill 325 mg by mouth daily Folic acid 1 mg by mouth daily Haldol 5 mg by mouth daily for psychosis Januvia 50 mg by mouth daily Metformin 1000 mg by mouth twice a day Multivitamins 1 daily Lipitor 20 mg at the nighttime Depakote 1000 a day for mood stabilization depakote level was 32 11/11/17, most likely pt was noncompliant, last admission pt was on the same dose of Depakote but level was 62 10/23/17 Patient is on Clozaril and blood need to be monitored weekly, ,no signs of agranulocytosis. celexa d/c because of potential side effect Leukocytosis (last admission) Family involvement Follow up on labs Will monitor closely Pt was educated about risk/benefits and alternatives of medications, coping strategies (safety plan, suicide prevention), relapse prevention, importance of follow up with psychiatrist and therapist, stay away from drugs/alcohol/smoking Estimated Date of D/C: 11/17/17
[2017-11-15 07:05] VITALS: RESP 20
[2017-11-15] MEDS: Divalproex 500 mg DR(BID formulation) PO SCH ×2 (08:49→16:21)
[2017-11-15] MEDS: Multivitamin Therapeutic Tab PO SCH (08:49)
[2017-11-15] MEDS: Insulin Reg-MEDIUM-Coverage SC SCH ×4 (08:50→21:20)
--- NOTE | 2017-11-15 09:00 | PCM.PYCHPN ---
Psychiatric Progress Note - Psychiatric Progress Note Patient seen today, length of contact: 30 minutes Problems Identified/Issues Discussed: I reviewed assessment and recent notes. I am very familiar with patient from her numerous admissions to [facility] as well as [facility]. I Staff notes indicate that patient has been in good control, calm, cooperative and compliant with medications similar to her previous admissions. There have been no behavioral issues. Grooming is good and patient is oriented to month, year and location. Patient feels like she is improving and denies any new concerns. Affect is a little preoccupied and odd however she does not appear to be responding to internal stimuli. Patient also continues to deny any hallucinations on the unit. She is sleeping well and denies any discomfort or pain. Patient appears comfortable, without any distress. Mostly keeps to herself and hasnt been very engaged on the unit yet but friendly when approached. Insight and judgment continue to be impaired. Diagnostic Results: Schizoaffective Disorder Medication Change: No (will monitor for now) Medical Record Reviewed: Yes Mental Status Examination - Cognitive Function Orientation: Person, Place Memory: Intact Attention: Poor Concentration: Poor Association: Loose Fund of Knowledge: Poor - Mood Mood: Depressed - Affect Affect: Constricted - Speech Speech: Slurred - Formal Thought Process Formal Thought Process: Hallucinations, Delusions, Paranoia, Loosening of associations - Suicidal Ideation Suicidal Ideation: No - Homicidal Ideation Homicidal Ideation: No Goal/Treatment Plan - Goal/Treatment Plan Need for Continued Stay: Remain at risks for inpatient hospitalization, Severe depression anxiety, Discharge may exacerbated symptoms, Failed transitioning, Severe functional impairment Progress Toward Problem(s) and Goals/Treatment Plan: * c/w current tx and plan * No new floor lab results today * Vitals reviewed and noted below: Selected Entries 11/15/17 07:05 Temperature 98.1 F Pulse Rate 87 Respiratory 20 Rate Blood Pressure 128/86 Estimated Date of D/C: 11/17/17
--- NOTE | 2017-11-15 09:47 | PN ---
DATE: 11/15/2017 SUBJECTIVE: I saw Gato resting in bed in her room in the psych floor on the fifth floor. She got up and walked around checked her out. She is comfortable. She is tired. She is on Flagyl, Cogentin, Depakote, Feosol, folic acid, Glucophage, Haldol, insulin, Januvia, Lipitor, Macrobid, Norvasc and Thera-Tabs. PHYSICAL EXAMINATION: VITAL SIGNS: Temperature 98.1, 87 pulse, 128/86 blood pressure, 20 respiratory rate. HEENT: Head is atraumatic, normocephalic. Throat is moist. NECK: Supple. HEART: Regular rate. LUNGS: Clear to auscultation. ABDOMEN: Soft, obese, nontender. EXTREMITIES: No edema. LABORATORY DATA: Last labs on the 11/12/2017, the CBC was good. Chemistry was good. Last blood sugars have been 135, good. She does have urinary tract infection, she is on antibiotics for that. RPR is nonreactive. She has been seen by Psychiatry, they are adjusting her medications. She is currently on Flagyl, Cogentin, Depakote, Feosol, folic acid, Glucophage for diabetes, Haldol, Januvia, Lipitor, Macrobid for UTI, Norvasc and Thera-Tabs. ASSESSMENT AND PLAN: She is here for urinary tract infection, suicidal ideation, diabetes, hypertension, high cholesterol, bipolar, schizophrenia, anemia and depression. I do think she is slowly starting to improve. Continue with aggressive treatment and care. I encouraged her to take her medications, participate in groups, eat the food and we will see when Psychiatry feels that she is ready to be discharged as per Psychiatry. Jason Contreras DO [facility]
[2017-11-16] MEDS: Insulin Reg-MEDIUM-Coverage SC SCH ×4 (08:33→21:09)
[2017-11-16] MEDS: Divalproex 500 mg DR(BID formulation) PO SCH ×2 (08:38→16:43)
[2017-11-16] MEDS: Multivitamin Therapeutic Tab PO SCH (08:42)
--- NOTE | 2017-11-16 11:47 | PN ---
DATE: 11/16/2017 SUBJECTIVE: She is resting comfortably in her bed in the Psychiatric floor. She is very tired. No acute distress at this time. MEDICATIONS: She is on Clozaril, Cogentin, Depakote, Feosol, folic acid, Glucophage, Haldol, insulin coverage, Januvia, Lipitor, Macrobid, Norvasc and Thera-Tabs. PHYSICAL EXAMINATION: VITAL SIGNS: 98.1 temp, 82 pulse, 114/82 blood pressure, 20 respiratory rate. HEENT: Her head is atraumatic, normocephalic. HEART: Regular rate. LUNGS: Clear to auscultation. ABDOMEN: Soft, obese, nontender. Positive bowel sounds. EXTREMITIES: Have no edema. LABORATORY DATA: Last blood sugar was 126. ASSESSMENT AND PLAN: She is currently on Macrobid for urinary tract infection. We will continue to follow as per Psychiatry with medication adjustment. I encouraged her to participate, eat well and we will follow. Jason Contreras DO
--- NOTE | 2017-11-16 14:06 | PCM.PYCHPN ---
Psychiatric Progress Note - Psychiatric Progress Note Patient seen today, length of contact: 30 minutes Patient Chief Complaint: ", you need to give me a chance, I will be alright, I don't want to go to the senior care, I came here because I like you, that is all, I and my mom are communicating with each other better, I don't want to go to the senior care...' Problems Identified/Issues Discussed: Suicide/ homicide prevention, past psychiatric h/o, current psychiatric symptoms , medical problems, risk/benefits and alternatives of medications, medications compliance, coping strategies, substance abuse h/o, relapse prevention, importance of follow up with psychiatrist and therapist, discharge plan. Medical Problems: hypertension, diabetes, dyslipidemia Diagnostic Results: 11/10/17 13:15 11/10/17 13:15 Lab Results 11/11/17 07:20: POC Glucose (mg/dL) 155 H 11/11/17 06:56: Valproic Acid 32 L 11/11/17 06:56: Free T4 0.92, TSH 3rd Generation 1.53 11/11/17 06:56: Fasting Glucose 154 H, Triglycerides 197 H, Cholesterol 199, LDL Cholesterol Direct 139 H, HDL Cholesterol 31 11/10/17 21:03: POC Glucose (mg/dL) 214 H 11/10/17 13:15: Alcohol, Quantitative < 10 11/10/17 13:15: Salicylates < 1 L, Acetaminophen < 10.0 L 11/10/17 13:15: Sodium 141, Potassium 4.0, Chloride 101, Carbon Dioxide 23, Anion Gap 21 H, BUN 8, Creatinine 0.4 L, Est GFR ( Amer) > 60, Est GFR ( Non-Af Amer) > 60, Random Glucose 180 H, Calcium 9.5, Magnesium 1.6 L, Total Bilirubin 0.1 L, AST 22, ALT 17, Alkaline Phosphatase 91, Total Protein 8.0, Albumin 4.3, Globulin 3.6, Albumin/Globulin Ratio 1.2 11/10/17 13:15: WBC 10.7, RBC 4.22, Hgb 12.1, Hct 35.8 L, MCV 84.8, MCH 28.7, MCHC 33.8, RDW 16.7 H, Plt Count 362, MPV 8.7, Gran % 56.4, Lymph % (Auto) 35.0 , [place] % (Auto) 8.0 H, Eos % (Auto) 0.3 L, Baso % (Auto) 0.3, Gran # 6.04, Lymph # (Auto) 3.7 H, [place] # (Auto) 0.9 H, Eos # (Auto) 0.0, Baso # (Auto) 0.03 11/10/17 13:00: Urine Opiates Screen Negative, Urine Methadone Screen Negative, Ur Barbiturates Screen Negative, Ur Phencyclidine Scrn Negative, Ur Amphetamines Screen Negative, U Benzodiazepines Scrn Negative, U Oth Cocaine Metabols Negative, U Cannabinoids Screen Negative 11/10/17 13:00: Urine Color Yellow, Urine Appearance Sl cloudy, Urine pH 6.5, Ur Specific [place] 1.025, Urine Protein Trace H, Urine Glucose (UA) 250 H, Urine Ketones 15 H, Urine Blood Large H, Urine Nitrate Negative, Urine Bilirubin Negative, Urine Urobilinogen 0.2, Ur Leukocyte Esterase Trace H, Urine RBC 15 - 20, Urine WBC 2 - 5, Ur Epithelial Cells 4 - 5, Urine Bacteria Mod, Urine HCG, Qual Negative Vital Signs Temp Pulse Pulse Resp BP Pulse Ox 11/11/17 09:16 106/61 11/11/17 06:29 98.0 F 78 14 99/62 L 11/10/17 16:37 68 16 11/10/17 16:16 88 16 110/67 11/10/17 14:56 98.7 F 90 18 107/64 100 Temp Pulse Resp BP Pulse Ox 98.1 F 82 20 114/82 99 11/16/17 07:10 11/16/17 07:10 11/16/17 07:10 11/16/17 08:38 11/12/17 07:00 Laboratory Results - last 72 hr 11/13/17 11/13/17 11/14/17 16:20 21:13 07:22 POC Glucose (mg/dL) 162 H 257 H 169 H 11/14/17 11/14/17 11/14/17 11:09 16:01 20:47 POC Glucose (mg/dL) 190 H 190 H 190 H 11/15/17 11/15/17 11/15/17 07:16 11:31 16:03 POC Glucose (mg/dL) 135 H 242 H 166 H 11/15/17 11/16/17 11/16/17 21:13 07:28 11:07 POC Glucose (mg/dL) 266 H 126 H 157 H DSM 5 Symptoms Update: shortly patient is 41 years old -[place] female, long and debilitating history of schizophrenia vs schizoaffective, treatment resistant, multiple admissions to the psychiatric inpatient unit in the past, including to this hospital (last admission was on 10/27/17), pt was d/c from [facility] Sep 16 2017, currently is followed by [facility] PACT team, pt is on clozaril and Haldol Dec. pt was brought in by EMS after pt's mother called 911 because pt verbalized SI, superficially cut her left wrist (no sutures, no blood), pt had decreased care, her apartment was unkempt, pt requires further evaluation and stabilization, meds adjustment. patient was seen today in her room, patient appears to be sedated, half sleep, pt said that she is feeling "great" pt said "I came here because I like you guys ", it is not true, pt claimed that she cut herself with a knife and was feeling suicidal. pt seems not functioning in the community even if PACT team is seeing pt on daily basis and meds given to the patient by them. this board writer asked pt to think about Boarding home placement, because pt needs to have higher level of supervision, pt declined that offer, ", you need to give me a chance, I will be alright, I don't want to go to the senior care, I came here because I like you, that is all, I and my mom are communicating with each other better, I don't want to go to the senior care...". as per staff pt was talking to self, but in less extent. From the previous admission: patient was admitted to ICU at [facility] in June 23 through June 25, status post overdose on Clozaril, status post suicidal attempt. Patient was then transferred to [facility] where she spent past 3 months patient was discharged from the [facility] September 16, 2017. pt reported no side effects from meds, none observed AIMS 0, no EPS. Impression: schizoaffective disorder Medication Change: Yes (haldol increased) Medical Record Reviewed: Yes Mental Status Examination - Cognitive Function Orientation: Person, Place Memory: Intact Attention: Poor Concentration: Poor Association: Loose Fund of Knowledge: Poor - Mood Mood: Depressed - Affect Affect: Constricted - Speech Speech: Slurred - Formal Thought Process Formal Thought Process: Hallucinations, Delusions, Paranoia, Loosening of associations - Suicidal Ideation Suicidal Ideation: No - Homicidal Ideation Homicidal Ideation: No Goal/Treatment Plan - Goal/Treatment Plan Need for Continued Stay: Remain at risks for inpatient hospitalization, Severe depression anxiety, Discharge may exacerbated symptoms, Failed transitioning, Severe functional impairment Progress Toward Problem(s) and Goals/Treatment Plan: Milieu/structure/supportive therapy Medical consult appreciated, see medical team note for more detailed info SW consultation for discharge plan and social issues Med management Haldol decanoate 100 mg IM every month was last dose was 11/03/17 confirmed by PACT Clozaril 350 mg by mouth at the nighttime for psychosis Cogentin 1 mg daily Iron pill 325 mg by mouth daily Folic acid 1 mg by mouth daily Haldol 10 mg by mouth daily for psychosis Januvia 50 mg by mouth daily Metformin 1000 mg by mouth twice a day Multivitamins 1 daily Lipitor 20 mg at the nighttime Depakote 1000 a day for mood stabilization depakote level was 32 11/11/17, most likely pt was noncompliant, last admission pt was on the same dose of Depakote but level was 62 10/23/17 Patient is on Clozaril and blood need to be monitored weekly, ,no signs of agranulocytosis. celexa d/c because of potential side effect Leukocytosis (last admission) Family involvement Follow up on labs Will monitor closely Pt was educated about risk/benefits and alternatives of medications, coping strategies (safety plan, suicide prevention), relapse prevention, importance of follow up with psychiatrist and therapist, stay away from drugs/alcohol/smoking Estimated Date of D/C: 11/21/17
[2017-11-17] MEDS: Multivitamin Therapeutic Tab PO SCH (08:29)
[2017-11-17] MEDS: Divalproex 500 mg DR(BID formulation) PO SCH ×2 (08:29→17:15)
[2017-11-17] MEDS: Insulin Reg-MEDIUM-Coverage SC SCH ×4 (08:30→21:09)
--- NOTE | 2017-11-17 11:21 | PN ---
DATE: 11/17/2017 SUBJECTIVE: I saw her resting comfortably in bed in the psychiatric floor. She is sleeping very well. She has no complaints. She is trying to participate. She is taking the medications. She tells me she is starting to feel better. She is on Clozaril, Cogentin, Depakote, Feosol, folic acid, Glucophage, Haldol, Januvia, Lipitor, Macrobid, Norvasc and Thera-Tabs. PHYSICAL EXAMINATION: VITAL SIGNS: She has a 97.6 temperature, 80 pulse, 105/68 blood pressure, 20 respiratory rate. HEENT: Head is atraumatic, normocephalic. HEART: Regular rate. LUNGS: Decreased breath sounds, but clear. ABDOMEN: Soft, obese. EXTREMITIES: No edema. LABORATORY DATA: Last labs on the 11/12/2017, last blood sugar was 162. ASSESSMENT AND PLAN: As per Psychiatry, adjusting medications and treatment, say, for numerous reasons, suicidal ideation, auditory hallucinations, diabetes, urinary tract infection, bipolar, hypertension, high cholesterol, anemia, history of schizophrenia. We will continue to follow. I am encouraging her to participate and take the medications. Jason Contreras DO
--- NOTE | 2017-11-17 14:14 | PCM.PYCHPN ---
Psychiatric Progress Note - Psychiatric Progress Note Patient seen today, length of contact: 30 minutes Patient Chief Complaint: "Do you want me to sign anything?" pt just randomly asked this question not related to the context of the conversation. Problems Identified/Issues Discussed: Suicide/ homicide prevention, past psychiatric h/o, current psychiatric symptoms , medical problems, risk/benefits and alternatives of medications, medications compliance, coping strategies, substance abuse h/o, relapse prevention, importance of follow up with psychiatrist and therapist, discharge plan. Medical Problems: hypertension, diabetes, dyslipidemia Diagnostic Results: 11/10/17 13:15 11/10/17 13:15 Lab Results 11/11/17 07:20: POC Glucose (mg/dL) 155 H 11/11/17 06:56: Valproic Acid 32 L 11/11/17 06:56: Free T4 0.92, TSH 3rd Generation 1.53 11/11/17 06:56: Fasting Glucose 154 H, Triglycerides 197 H, Cholesterol 199, LDL Cholesterol Direct 139 H, HDL Cholesterol 31 11/10/17 21:03: POC Glucose (mg/dL) 214 H 11/10/17 13:15: Alcohol, Quantitative < 10 11/10/17 13:15: Salicylates < 1 L, Acetaminophen < 10.0 L 11/10/17 13:15: Sodium 141, Potassium 4.0, Chloride 101, Carbon Dioxide 23, Anion Gap 21 H, BUN 8, Creatinine 0.4 L, Est GFR ( Amer) > 60, Est GFR ( Non-Af Amer) > 60, Random Glucose 180 H, Calcium 9.5, Magnesium 1.6 L, Total Bilirubin 0.1 L, AST 22, ALT 17, Alkaline Phosphatase 91, Total Protein 8.0, Albumin 4.3, Globulin 3.6, Albumin/Globulin Ratio 1.2 11/10/17 13:15: WBC 10.7, RBC 4.22, Hgb 12.1, Hct 35.8 L, MCV 84.8, MCH 28.7, MCHC 33.8, RDW 16.7 H, Plt Count 362, MPV 8.7, Gran % 56.4, Lymph % (Auto) 35.0 , [place] % (Auto) 8.0 H, Eos % (Auto) 0.3 L, Baso % (Auto) 0.3, Gran # 6.04, Lymph # (Auto) 3.7 H, [place] # (Auto) 0.9 H, Eos # (Auto) 0.0, Baso # (Auto) 0.03 11/10/17 13:00: Urine Opiates Screen Negative, Urine Methadone Screen Negative, Ur Barbiturates Screen Negative, Ur Phencyclidine Scrn Negative, Ur Amphetamines Screen Negative, U Benzodiazepines Scrn Negative, U Oth Cocaine Metabols Negative, U Cannabinoids Screen Negative 11/10/17 13:00: Urine Color Yellow, Urine Appearance Sl cloudy, Urine pH 6.5, Ur Specific [place] 1.025, Urine Protein Trace H, Urine Glucose (UA) 250 H, Urine Ketones 15 H, Urine Blood Large H, Urine Nitrate Negative, Urine Bilirubin Negative, Urine Urobilinogen 0.2, Ur Leukocyte Esterase Trace H, Urine RBC 15 - 20, Urine WBC 2 - 5, Ur Epithelial Cells 4 - 5, Urine Bacteria Mod, Urine HCG, Qual Negative Vital Signs Temp Pulse Pulse Resp BP Pulse Ox 11/11/17 09:16 106/61 11/11/17 06:29 98.0 F 78 14 99/62 L 11/10/17 16:37 68 16 11/10/17 16:16 88 16 110/67 11/10/17 14:56 98.7 F 90 18 107/64 100 Temp Pulse Resp BP Pulse Ox 98.1 F 82 20 114/82 99 11/16/17 07:10 11/16/17 07:10 11/16/17 07:10 11/16/17 08:38 11/12/17 07:00 Laboratory Results - last 72 hr 11/13/17 11/13/17 11/14/17 16:20 21:13 07:22 POC Glucose (mg/dL) 162 H 257 H 169 H 11/14/17 11/14/17 11/14/17 11:09 16:01 20:47 POC Glucose (mg/dL) 190 H 190 H 190 H 11/15/17 11/15/17 11/15/17 07:16 11:31 16:03 POC Glucose (mg/dL) 135 H 242 H 166 H 11/15/17 11/16/17 11/16/17 21:13 07:28 11:07 POC Glucose (mg/dL) 266 H 126 H 157 H DSM 5 Symptoms Update: shortly patient is 41 years old -Stateless female, long and debilitating history of schizophrenia vs schizoaffective, treatment resistant, multiple admissions to the psychiatric inpatient unit in the past, including to this hospital (last admission was on 10/27/17), pt was d/c from [facility] Sep 16 2017, currently is followed by [facility] PACT team, pt is on clozaril and Haldol Dec. pt was brought in by EMS after pt's mother called 911 because pt verbalized SI, superficially cut her left wrist (no sutures, no blood), pt had decreased care, her apartment was unkempt, pt requires further evaluation and stabilization, meds adjustment. patient was seen today at the dinning area, pt presented relatively well, seems in good mood, but it is on very superficial level, but when talk to the pt more in details, pt is very disorganized, pt had delusions that she belongs to the [facility], pt also has erotomanic delusions towards imaginary , "Do you want me to sign anything?" pt just randomly asked this question not related to the context of the conversation. As per staff pt was talking to self, but in less extent. From the previous admission: patient was admitted to ICU at [facility] in June 23 through June 25, status post overdose on Clozaril, status post suicidal attempt. Patient was then transferred to [facility] where she spent past 3 months patient was discharged from the [facility] September 16, 2017. pt reported no side effects from meds, none observed AIMS 0, no EPS. Impression: schizoaffective disorder Medication Change: Yes (haldol increased 11/16/17) Medical Record Reviewed: Yes Mental Status Examination - Cognitive Function Orientation: Person, Place Memory: Intact Attention: Poor Concentration: Poor Association: Loose Fund of Knowledge: Poor - Mood Mood: Depressed - Affect Affect: Constricted - Speech Speech: Slurred - Formal Thought Process Formal Thought Process: Hallucinations, Delusions, Paranoia, Loosening of associations - Suicidal Ideation Suicidal Ideation: No - Homicidal Ideation Homicidal Ideation: No Goal/Treatment Plan - Goal/Treatment Plan Need for Continued Stay: Remain at risks for inpatient hospitalization, Severe depression anxiety, Discharge may exacerbated symptoms, Failed transitioning, Severe functional impairment Progress Toward Problem(s) and Goals/Treatment Plan: Milieu/structure/supportive therapy Medical consult appreciated, see medical team note for more detailed info SW consultation for discharge plan and social issues Med management Haldol decanoate 100 mg IM every month was last dose was 11/03/17 confirmed by PACT Clozaril 350 mg by mouth at the nighttime for psychosis Cogentin 1 mg daily Iron pill 325 mg by mouth daily Folic acid 1 mg by mouth daily Haldol 10 mg by mouth daily for psychosis Januvia 50 mg by mouth daily Metformin 1000 mg by mouth twice a day Multivitamins 1 daily Lipitor 20 mg at the nighttime Depakote 1000 a day for mood stabilization depakote level was 32 11/11/17, most likely pt was noncompliant, last admission pt was on the same dose of Depakote but level was 62 10/23/17 depakote level 11/18/17 Patient is on Clozaril and blood need to be monitored weekly, ,no signs of agranulocytosis. celexa d/c because of potential side effect Leukocytosis (last admission) Family involvement Follow up on labs Will monitor closely Pt was educated about risk/benefits and alternatives of medications, coping strategies (safety plan, suicide prevention), relapse prevention, importance of follow up with psychiatrist and therapist, stay away from drugs/alcohol/smoking Estimated Date of D/C: 11/21/17
[2017-11-17 15:39] LABS: BASO # 0.04 K/mm3 (0.0-2.0); BASO % 0.3 % (0.0-3.0); EOS % 0.3 % (1.5-5.0); GRAN # 7.82 (1.4-6.5); GRAN % 58.7 % (50.0-68.0); HEMOGLOBIN 12.6 g/dL (12.0-16.0); LYMPH # 4.6 (1.2-3.4); LYMPH % 34.5 % (22.0-35.0); MEAN CELL VOLUME 83.7 fl (80.0-105.0); MEAN CORPUSCULAR HEMOGLOBIN 28.5 pg (25.0-35.0); MEAN CORPUSCULAR HGB CONC 34.1 g/dl (31.0-37.0); MEAN PLATELET VOLUME 8.7 fl (7.0-11.0); MONO # 0.8 (0.1-0.6); MONO % 6.2 % (1.0-6.0); RBC 4.42 10^6/uL (3.5-6.1); WHITE BLOOD COUNT 13.3 10^3/ul (4.5-11.0)
[2017-11-18] MEDS: Insulin Reg-MEDIUM-Coverage SC SCH ×4 (08:35→22:07)
--- NOTE | 2017-11-18 08:55 | PCM.PYCHPN ---
Psychiatric Progress Note - Psychiatric Progress Note Patient seen today, length of contact: 30 minutes Problems Identified/Issues Discussed: I reviewed assessment and recent notes. I am very familiar with patient from her numerous admissions to [facility] as well as [facility]. Staff notes indicate that patient has been in good control, calm , cooperative and compliant with medications similar to her previous admissions. There have been no behavioral issues. Grooming is good and patient is oriented to month, year and location. Patient is sleepy this morning but does respond relevantly to questioning. She has a superficial understanding of her circumstances and thought process remains scattered. Patient feels like she is improving regarding her mood and hallucinations She denies any new concerns. Affect is preoccupied and odd however she does not appear to be responding to internal stimuli. Patient also continues to deny any hallucinations on the unit. She is sleeping well and denies any discomfort or pain. Patient appears comfortable, without any distress. Patient has been more visible on the units though still generally does not interact with other patients. She is superficially pleasant and friendly and has been observed talking to herself. Similar to prior admissions there have been no behavioral issues however her insight continues to be chronically impaired. Diagnostic Results: Schizoaffective Disorder Medication Change: Yes (haldol increased 11/16/17) Medical Record Reviewed: Yes Mental Status Examination - Cognitive Function Orientation: Person, Place Memory: Intact Attention: Poor Concentration: Poor Association: Loose Fund of Knowledge: Poor - Mood Mood: Depressed - Affect Affect: Constricted - Speech Speech: Slurred - Formal Thought Process Formal Thought Process: Hallucinations, Delusions, Paranoia, Loosening of associations - Suicidal Ideation Suicidal Ideation: No - Homicidal Ideation Homicidal Ideation: No Goal/Treatment Plan - Goal/Treatment Plan Need for Continued Stay: Remain at risks for inpatient hospitalization, Severe depression anxiety, Discharge may exacerbated symptoms, Failed transitioning, Severe functional impairment Progress Toward Problem(s) and Goals/Treatment Plan: * c/w current tx and plan * New floor lab results noted below: 11/18/17 07:00 Valproic Acid 60 * Vitals reviewed and noted below: 11/18/17 07:21 Temperature 98.1 F Pulse Rate 83 Respiratory 20 Rate Blood Pressure 115/82 Estimated Date of D/C: 11/21/17
[2017-11-18] MEDS: Divalproex 500 mg DR(BID formulation) PO SCH ×2 (10:33→17:01)
[2017-11-18] MEDS: Multivitamin Therapeutic Tab PO SCH (10:34)
--- NOTE | 2017-11-18 12:59 | PN ---
DATE: 11/18/2017 SUBJECTIVE: I saw her sitting out of bed for breakfast. She is actually doing quite well today. That is the best I have seen her since she has been in the hospital. [place], she is on Clozaril, Cogentin, Depakote, Feosol, folic acid, Glucophage, Haldol, insulin, Januvia, Lipitor, Macrobid, Norvasc and Thera-Tabs. OBJECTIVE: VITAL SIGNS: Temperature 98.1, 83 pulse, 115/82 blood pressure, 20 respiratory rate. HEENT: Head is atraumatic, normocephalic. HEART: Regular rate. LUNGS: Clear to auscultation. ABDOMEN: Soft, obese, nontender. EXTREMITIES: No edema. NEUROLOGIC: She is talking well. She is in good spirits. No complaints. DATA: She had a white count yesterday of 13.3, not sure why; 12.6 hemoglobin, 37 hematocrit with a 369 platelets. Last blood sugar was 145. I am going to repeat the urine and blood test. She was seen by Psychiatry. I am not sure why the white count bumped up. She is on antibiotics for the urinary tract infection. She is on nitrofurantoin. I will repeat the labs tomorrow and repeat another urine test today. We will continue with aggressive treatment and care as per Psychiatry. She is here for UTI, suicidal ideations, auditory hallucinations, diabetes, bipolar, schizophrenia, high cholesterol and hypertension. Jason Contreras DO
[2017-11-19 08:00] LABS: HEMOGLOBIN 11.1 g/dL (12.0-16.0); MEAN CELL VOLUME 83.8 fl (80.0-105.0); MEAN CORPUSCULAR HEMOGLOBIN 27.7 pg (25.0-35.0); MEAN PLATELET VOLUME 8.8 fl (7.0-11.0); RBC 4.01 10^6/uL (3.5-6.1); RED CELL DISTRIBUTION WIDTH 15.9 % (11.5-14.5); WHITE BLOOD COUNT 9.7 10^3/ul (4.5-11.0)
[2017-11-19 08:10] LABS: ALB/GLOB RATIO 1.2 (1.1-1.8); ALBUMIN 3.7 g/dL (3.0-4.8); ALT/SGPT 16 U/L (7-56); AST/SGOT 19 U/L (14-36); BLOOD UREA NITROGEN 8 mg/dL (7-21); GFR AFRICAN-AMERICAN > 60; GFR NON-AFRICAN AMERICAN > 60
--- NOTE | 2017-11-19 08:51 | PCM.PYCHPN ---
Psychiatric Progress Note - Psychiatric Progress Note Patient seen today, length of contact: 30 minutes Patient Chief Complaint: "terrific" Problems Identified/Issues Discussed: I reviewed recent notes. I am very familiar with patient from her numerous admissions to [facility] as well as [facility]. Staff notes indicate that patient has been in good control, calm, cooperative and compliant with medications similar to her previous admissions. There have been no behavioral issues. Grooming is good and patient is oriented to month, year and location. Patient is sleepy again this morning (like most mornings) but does respond relevantly to questioning. She has a superficial understanding of her circumstances and thought process remains scattered. Patient feels like she is improving regarding her mood and hallucinations. Indicates her mood is "terrific" and she denied having any hallucinations all weekend. Affect is preoccupied and odd. She is sleeping well and denies any discomfort or pain. Patient appears comfortable, without any distress. Staff notes indicate that patient has been more visible and interactive on the unit. Affect is upbeat and cheery, she appears to be approaching baseline. Similar to prior admissions there have been no behavioral issues however her insight continues to be chronically impaired. Diagnostic Results: Schizoaffective Disorder Medication Change: Yes (haldol increased 11/16/17) Medical Record Reviewed: Yes Mental Status Examination - Cognitive Function Orientation: Person, Place Memory: Intact Attention: Poor Concentration: Poor Association: Loose Fund of Knowledge: Poor - Mood Mood: Depressed - Affect Affect: Constricted - Speech Speech: Slurred - Formal Thought Process Formal Thought Process: Hallucinations, Delusions, Paranoia, Loosening of associations - Suicidal Ideation Suicidal Ideation: No - Homicidal Ideation Homicidal Ideation: No Goal/Treatment Plan - Goal/Treatment Plan Need for Continued Stay: Remain at risks for inpatient hospitalization, Severe depression anxiety, Discharge may exacerbated symptoms, Failed transitioning, Severe functional impairment Progress Toward Problem(s) and Goals/Treatment Plan: * c/w current tx and plan * Appreciate f/u by Dr. Contreras on 11/18/17~repeating blood and urine work due to elevated WBC. Results noted below: Laboratory Results - last 24 hr 11/18/17 11/18/17 11/18/17 11:11 16:14 21:06 WBC RBC Hgb Hct MCV MCH MCHC RDW Plt Count MPV Sodium Potassium Chloride Carbon Dioxide Anion Gap BUN Creatinine Est GFR ( Amer) Est GFR (Non-Af Amer) POC Glucose (mg/dL) 145 H 93 189 H Random Glucose Calcium Total Bilirubin AST ALT Alkaline Phosphatase Total Protein Albumin Globulin Albumin/Globulin Ratio 11/19/17 11/19/17 11/19/17 07:00 07:00 07:17 WBC 9.7 D RBC 4.01 Hgb 11.1 L Hct 33.6 L MCV 83.8 MCH 27.7 MCHC 33.0 RDW 15.9 H Plt Count 351 MPV 8.8 Sodium 140 Potassium 4.3 Chloride 101 Carbon Dioxide 26 Anion Gap 17 BUN 8 Creatinine 0.4 L Est GFR ( Amer) > 60 Est GFR (Non-Af Amer) > 60 POC Glucose (mg/dL) 143 H Random Glucose 133 H Calcium 9.0 Total Bilirubin 0.2 AST 19 ALT 16 Alkaline Phosphatase 72 Total Protein 6.9 Albumin 3.7 Globulin 3.2 Albumin/Globulin Ratio 1.2 11/18/17 07:00 Valproic Acid 60 * Vitals reviewed and noted below: Selected Entries 11/19/17 06:50 Temperature 97.7 F Pulse Rate 82 Respiratory 20 Rate Blood Pressure 111/79 Estimated Date of D/C: 11/21/17
[2017-11-19] MEDS: Multivitamin Therapeutic Tab PO SCH (09:22)
[2017-11-19] MEDS: Divalproex 500 mg DR(BID formulation) PO SCH ×2 (09:22→15:25)
[2017-11-19] MEDS: Insulin Reg-MEDIUM-Coverage SC SCH ×4 (09:23→21:35)
--- NOTE | 2017-11-19 13:17 | PN ---
DATE: 11/19/2017 SUBJECTIVE: I saw Gato resting comfortably in bed. She slept well. She tells me she is doing much better than when she came in. She is in good spirits. She is ready for breakfast. She is on Clozaril, Cogentin, Depakote, Feosol, folic acid, Glucophage, Haldol, insulin, Januvia, Lipitor, Macrobid, Norvasc and Thera-Tab. PHYSICAL EXAMINATION: VITAL SIGNS: Temp 97.7, 82 pulse, 111/79 blood pressure, 20 respiratory rate. HEENT: Head is atraumatic, normocephalic. HEART: Regular rate. LUNGS: Clear to auscultation. ABDOMEN: Soft. EXTREMITIES: No edema. LABORATORY DATA: She has a 9.7 white count, 11.1 hemoglobin, 32.6 hematocrit with 51 platelets. Her white count is much better than yesterday. She has a 140 sodium, potassium 4.3, BUN 8, creatinine 0.4, GFR is greater than 60, sugar is 143, calcium is 9, total bili is 0.2, AST is 19, ALT is 16, alkaline phosphatase is 72, total protein 6.9. ASSESSMENT AND PLAN: She has been on the antibiotics for more than a week. I am going to stop them. I encouraged her to drink more water and as for psychological issue, I will continue with Psychiatry, adjusting her medications. I encouraged her to participate in groups and eat well and that is the plan for Ms. Gato Garces. I will stop the antibiotics for the urinary tract infection. Jason Contreras DO
[2017-11-19 19:19] LABS: URINE BILIRUBIN NEGATIVE (NEGATIVE); URINE BLOOD SMALL (NEGATIVE); URINE GLUCOSE (UA) NEGATIVE (NEGATIVE); URINE LEUKOCYTE ESTERASE NEGATIVE Leu/uL (NEGATIVE); URINE PROTEIN NEGATIVE mg/dL (<30 mg/dL); URINE UROBILINOGEN 0.2 E.U./dL (<1 E.U./dL)
[2017-11-19 19:20] LABS: URINE APPEARANCE CLEAR (CLEAR); URINE COLOR YELLOW (YELLOW)
[2017-11-19 22:06] LABS: URINE BACTERIA FEW (NEG)
--- NOTE | 2017-11-20 08:41 | PN ---
DATE: 11/20/2017 SUBJECTIVE: I saw Gato resting comfortably in bed this morning. She slept well. No acute complaints or problems. She is getting ready for breakfast. She is taking the medications. She is tired. She is pleasant and feeling better. She is on Clozaril, Cogentin, Depakote, Feosol, folic acid, Glucophage, Haldol, insulin, Januvia, Lipitor, Norvasc and Thera-Tabs. OBJECTIVE: VITAL SIGNS: She has a 97.7 temperature, 82 pulse, 111/79 blood pressure, 20 respiratory rate. HEENT: Head is atraumatic, normocephalic. HEART: Regular rate. LUNGS: Decreased breath sounds, but clear. ABDOMEN: Soft, obese, nontender. EXTREMITIES: No edema. DATA: Last labs were on 11/19/2017, she did very well. Last blood sugar was 152. I encouraged her to participate in groups, take her medications as per Psychiatry. Continue with treatment and care. She is here for suicidal ideation, auditory hallucinations, diabetes, UTI, bipolar, hypertension, schizophrenia and cholesterol and at this time, I am happy with her. We will continue with treatment and care as per Psychiatry. We will follow. Jason Contreras DO
[2017-11-20] MEDS: Multivitamin Therapeutic Tab PO SCH (08:59)
[2017-11-20] MEDS: Divalproex 500 mg DR(BID formulation) PO SCH ×2 (08:59→16:48)
[2017-11-20] MEDS: Insulin Reg-MEDIUM-Coverage SC SCH ×4 (09:00→21:26)
--- NOTE | 2017-11-20 15:51 | PCM.PYCHPN ---
Psychiatric Progress Note - Psychiatric Progress Note Patient seen today, length of contact: 30 minutes Patient Chief Complaint: "I am alright " Problems Identified/Issues Discussed: Suicide/ homicide prevention, past psychiatric h/o, current psychiatric symptoms , medical problems, risk/benefits and alternatives of medications, medications compliance, coping strategies, substance abuse h/o, relapse prevention, importance of follow up with psychiatrist and therapist, discharge plan. Medical Problems: HTN, diabetes Diagnostic Results: 11/19/17 07:00 11/19/17 07:00 Lab Results 11/20/17 11:13: POC Glucose (mg/dL) 145 H 11/20/17 07:23: POC Glucose (mg/dL) 152 H 11/19/17 21:01: POC Glucose (mg/dL) 185 H 11/19/17 19:08: Urine Color Yellow, Urine Appearance Clear, Urine pH 6.0, Ur Specific [place] 1.020, Urine Protein Negative, Urine Glucose (UA) Negative, Urine Ketones 40 H, Urine Blood Small H, Urine Nitrate Negative, Urine Bilirubin Negative, Urine Urobilinogen 0.2, Ur Leukocyte Esterase Negative, Urine RBC 5 - 10, Urine WBC 2 - 5, Ur Epithelial Cells 3 - 4, Urine Bacteria Few 11/19/17 16:16: POC Glucose (mg/dL) 124 H 11/19/17 11:22: POC Glucose (mg/dL) 178 H 11/19/17 07:17: POC Glucose (mg/dL) 143 H 11/19/17 07:00: Sodium 140, Potassium 4.3, Chloride 101, Carbon Dioxide 26, Anion Gap 17, BUN 8, Creatinine 0.4 L, Est GFR ( Amer) > 60, Est GFR (Non -Af Amer) > 60, Random Glucose 133 H, Calcium 9.0, Total Bilirubin 0.2, AST 19, ALT 16, Alkaline Phosphatase 72, Total Protein 6.9, Albumin 3.7, Globulin 3.2, Albumin/Globulin Ratio 1.2 11/19/17 07:00: WBC 9.7 D, RBC 4.01, Hgb 11.1 L, Hct 33.6 L, MCV 83.8, MCH 27.7 , MCHC 33.0, RDW 15.9 H, Plt Count 351, MPV 8.8 11/18/17 21:06: POC Glucose (mg/dL) 189 H 11/18/17 16:14: POC Glucose (mg/dL) 93 11/18/17 11:11: POC Glucose (mg/dL) 145 H 11/18/17 07:16: POC Glucose (mg/dL) 142 H 11/18/17 07:00: Valproic Acid 60 11/17/17 20:56: POC Glucose (mg/dL) 228 H 11/17/17 15:51: POC Glucose (mg/dL) 209 H 11/17/17 15:20: WBC 13.3 H D, RBC 4.42, Hgb 12.6, Hct 37.0, MCV 83.7, MCH 28.5, MCHC 34.1, RDW 16.0 H, Plt Count 369, MPV 8.7, Gran % 58.7, Lymph % (Auto) 34.5 , [place] % (Auto) 6.2 H, Eos % (Auto) 0.3 L, Baso % (Auto) 0.3, Gran # 7.82 H, Lymph # (Auto) 4.6 H, [place] # (Auto) 0.8 H, Eos # (Auto) 0.0, Baso # (Auto) 0.04 11/17/17 12:00: POC Glucose (mg/dL) 132 H 11/17/17 07:22: POC Glucose (mg/dL) 162 H 11/16/17 21:06: POC Glucose (mg/dL) 194 H 11/16/17 16:10: POC Glucose (mg/dL) 136 H 11/16/17 11:07: POC Glucose (mg/dL) 157 H 11/16/17 07:28: POC Glucose (mg/dL) 126 H 11/15/17 21:13: POC Glucose (mg/dL) 266 H 11/15/17 16:03: POC Glucose (mg/dL) 166 H 11/15/17 11:31: POC Glucose (mg/dL) 242 H 11/15/17 07:16: POC Glucose (mg/dL) 135 H 11/14/17 20:47: POC Glucose (mg/dL) 190 H 11/14/17 16:01: POC Glucose (mg/dL) 190 H 11/14/17 11:09: POC Glucose (mg/dL) 190 H 11/14/17 07:22: POC Glucose (mg/dL) 169 H 11/13/17 21:13: POC Glucose (mg/dL) 257 H 11/13/17 16:20: POC Glucose (mg/dL) 162 H 11/13/17 11:12: POC Glucose (mg/dL) 158 H 11/13/17 07:16: POC Glucose (mg/dL) 146 H 11/12/17 21:09: POC Glucose (mg/dL) 147 H 11/12/17 16:22: POC Glucose (mg/dL) 141 H 11/12/17 11:16: POC Glucose (mg/dL) 163 H 11/12/17 07:00: Sodium 140, Potassium 4.4, Chloride 101, Carbon Dioxide 27, Anion Gap 16, BUN 9, Creatinine 0.3 L, Est GFR ( Amer) > 60, Est GFR (Non -Af Amer) > 60, Random Glucose 147 H, Calcium 9.0, Total Bilirubin 0.3, AST 28, ALT 14, Alkaline Phosphatase 67, Total Protein 7.3, Albumin 3.8, Globulin 3.4, Albumin/Globulin Ratio 1.1 11/12/17 07:00: WBC 10.9, RBC 3.98, Hgb 11.1 L, Hct 33.6 L, MCV 84.4, MCH 27.9, MCHC 33.0, RDW 16.4 H, Plt Count 332, MPV 8.6 11/12/17 06:00: POC Glucose (mg/dL) 157 H 11/11/17 21:28: POC Glucose (mg/dL) 188 H 11/11/17 15:54: POC Glucose (mg/dL) 167 H 11/11/17 11:23: POC Glucose (mg/dL) 189 H 11/11/17 07:20: POC Glucose (mg/dL) 155 H 11/11/17 06:56: Valproic Acid 32 L 11/11/17 06:56: RPR Nonreactive 11/11/17 06:56: Free T4 0.92, TSH 3rd Generation 1.53 11/11/17 06:56: Fasting Glucose 154 H, Triglycerides 197 H, Cholesterol 199, LDL Cholesterol Direct 139 H, HDL Cholesterol 31 11/10/17 21:03: POC Glucose (mg/dL) 214 H 11/10/17 13:15: Alcohol, Quantitative < 10 11/10/17 13:15: Salicylates < 1 L, Acetaminophen < 10.0 L 11/10/17 13:15: Sodium 141, Potassium 4.0, Chloride 101, Carbon Dioxide 23, Anion Gap 21 H, BUN 8, Creatinine 0.4 L, Est GFR ( Amer) > 60, Est GFR ( Non-Af Amer) > 60, Random Glucose 180 H, Calcium 9.5, Magnesium 1.6 L, Total Bilirubin 0.1 L, AST 22, ALT 17, Alkaline Phosphatase 91, Total Protein 8.0, Albumin 4.3, Globulin 3.6, Albumin/Globulin Ratio 1.2 11/10/17 13:15: WBC 10.7, RBC 4.22, Hgb 12.1, Hct 35.8 L, MCV 84.8, MCH 28.7, MCHC 33.8, RDW 16.7 H, Plt Count 362, MPV 8.7, Gran % 56.4, Lymph % (Auto) 35.0 , [place] % (Auto) 8.0 H, Eos % (Auto) 0.3 L, Baso % (Auto) 0.3, Gran # 6.04, Lymph # (Auto) 3.7 H, [place] # (Auto) 0.9 H, Eos # (Auto) 0.0, Baso # (Auto) 0.03 11/10/17 13:00: Urine Opiates Screen Negative, Urine Methadone Screen Negative, Ur Barbiturates Screen Negative, Ur Phencyclidine Scrn Negative, Ur Amphetamines Screen Negative, U Benzodiazepines Scrn Negative, U Oth Cocaine Metabols Negative, U Cannabinoids Screen Negative 11/10/17 13:00: Urine Color Yellow, Urine Appearance Sl cloudy, Urine pH 6.5, Ur Specific [place] 1.025, Urine Protein Trace H, Urine Glucose (UA) 250 H, Urine Ketones 15 H, Urine Blood Large H, Urine Nitrate Negative, Urine Bilirubin Negative, Urine Urobilinogen 0.2, Ur Leukocyte Esterase Trace H, Urine RBC 15 - 20, Urine WBC 2 - 5, Ur Epithelial Cells 4 - 5, Urine Bacteria Mod, Urine HCG, Qual Negative Vital Signs Temp Pulse Pulse Resp BP Pulse Ox 11/20/17 08:59 134/94 H 11/19/17 16:00 105 H 134/94 H 11/19/17 09:23 111/79 11/19/17 06:50 97.7 F 82 20 111/79 11/18/17 16:30 93 H 107/72 11/18/17 10:34 115/82 11/18/17 07:21 98.1 F 83 20 115/82 11/17/17 15:45 105 H 136/90 11/17/17 08:29 105/68 11/17/17 06:40 97.6 F 80 20 105/68 11/16/17 16:00 104 H 134/93 H 11/16/17 08:38 114/82 11/16/17 07:10 98.1 F 82 20 114/82 11/15/17 15:52 111 H 146/94 H 11/15/17 08:49 128/86 11/15/17 07:05 98.1 F 87 20 128/86 11/14/17 22:28 132/88 11/14/17 15:00 104 H 132/88 11/14/17 09:09 117/79 11/14/17 06:56 98.1 F 78 18 117/79 11/13/17 08:44 115/77 11/13/17 07:26 97.7 F 81 20 118/80 11/12/17 15:00 95 H 112/73 11/12/17 09:05 136/88 11/12/17 07:00 98.1 F 83 20 136/88 99 11/12/17 06:45 98.1 F 83 20 136/88 99 11/11/17 15:59 100 H 139/86 11/11/17 09:16 106/61 11/11/17 06:29 98.0 F 78 14 99/62 L 11/10/17 16:37 68 16 11/10/17 16:16 88 16 110/67 11/10/17 14:56 98.7 F 90 18 107/64 100 Laboratory Results - last 72 hr 11/17/17 11/17/17 11/18/17 15:51 20:56 07:00 WBC RBC Hgb Hct MCV MCH MCHC RDW Plt Count MPV Sodium Potassium Chloride Carbon Dioxide Anion Gap BUN Creatinine Est GFR ( Amer) Est GFR (Non-Af Amer) POC Glucose (mg/dL) 209 H 228 H Random Glucose Calcium Total Bilirubin AST ALT Alkaline Phosphatase Total Protein Albumin Globulin Albumin/Globulin Ratio Urine Color Urine Appearance Urine pH Ur Specific [place] Urine Protein Urine Glucose (UA) Urine Ketones Urine Blood Urine Nitrate Urine Bilirubin Urine Urobilinogen Ur Leukocyte Esterase Urine RBC Urine WBC Ur Epithelial Cells Urine Bacteria Valproic Acid 60 11/18/17 11/18/17 11/18/17 07:16 11:11 16:14 WBC RBC Hgb Hct MCV MCH MCHC RDW Plt Count MPV Sodium Potassium Chloride Carbon Dioxide Anion Gap BUN Creatinine Est GFR ( Amer) Est GFR (Non-Af Amer) POC Glucose (mg/dL) 142 H 145 H 93 Random Glucose Calcium Total Bilirubin AST ALT Alkaline Phosphatase Total Protein Albumin Globulin Albumin/Globulin Ratio Urine Color Urine Appearance Urine pH Ur Specific [place] Urine Protein Urine Glucose (UA) Urine Ketones Urine Blood Urine Nitrate Urine Bilirubin Urine Urobilinogen Ur Leukocyte Esterase Urine RBC Urine WBC Ur Epithelial Cells Urine Bacteria Valproic Acid 11/18/17 11/19/17 11/19/17 21:06 07:00 07:00 WBC 9.7 D RBC 4.01 Hgb 11.1 L Hct 33.6 L MCV 83.8 MCH 27.7 MCHC 33.0 RDW 15.9 H Plt Count 351 MPV 8.8 Sodium 140 Potassium 4.3 Chloride 101 Carbon Dioxide 26 Anion Gap 17 BUN 8 Creatinine 0.4 L Est GFR ( Amer) > 60 Est GFR (Non-Af Amer) > 60 POC Glucose (mg/dL) 189 H Random Glucose 133 H Calcium 9.0 Total Bilirubin 0.2 AST 19 ALT 16 Alkaline Phosphatase 72 Total Protein 6.9 Albumin 3.7 Globulin 3.2 Albumin/Globulin Ratio 1.2 Urine Color Urine Appearance Urine pH Ur Specific [place] Urine Protein Urine Glucose (UA) Urine Ketones Urine Blood Urine Nitrate Urine Bilirubin Urine Urobilinogen Ur Leukocyte Esterase Urine RBC Urine WBC Ur Epithelial Cells Urine Bacteria Valproic Acid 11/19/17 11/19/17 11/19/17 07:17 11:22 16:16 WBC RBC Hgb Hct MCV MCH MCHC RDW Plt Count MPV Sodium Potassium Chloride Carbon Dioxide Anion Gap BUN Creatinine Est GFR ( Amer) Est GFR (Non-Af Amer) POC Glucose (mg/dL) 143 H 178 H 124 H Random Glucose Calcium Total Bilirubin AST ALT Alkaline Phosphatase Total Protein Albumin Globulin Albumin/Globulin Ratio Urine Color Urine Appearance Urine pH Ur Specific [place] Urine Protein Urine Glucose (UA) Urine Ketones Urine Blood Urine Nitrate Urine Bilirubin Urine Urobilinogen Ur Leukocyte Esterase Urine RBC Urine WBC Ur Epithelial Cells Urine Bacteria Valproic Acid 11/19/17 11/19/17 11/20/17 19:08 21:01 07:23 WBC RBC Hgb Hct MCV MCH MCHC RDW Plt Count MPV Sodium Potassium Chloride Carbon Dioxide Anion Gap BUN Creatinine Est GFR ( Amer) Est GFR (Non-Af Amer) POC Glucose (mg/dL) 185 H 152 H Random Glucose Calcium Total Bilirubin AST ALT Alkaline Phosphatase Total Protein Albumin Globulin Albumin/Globulin Ratio Urine Color Yellow Urine Appearance Clear Urine pH 6.0 Ur Specific [place] 1.020 Urine Protein Negative Urine Glucose (UA) Negative Urine Ketones 40 H Urine Blood Small H Urine Nitrate Negative Urine Bilirubin Negative Urine Urobilinogen 0.2 Ur Leukocyte Esterase Negative Urine RBC 5 - 10 Urine WBC 2 - 5 Ur Epithelial Cells 3 - 4 Urine Bacteria Few Valproic Acid 11/20/17 11:13 WBC RBC Hgb Hct MCV MCH MCHC RDW Plt Count MPV Sodium Potassium Chloride Carbon Dioxide Anion Gap BUN Creatinine Est GFR ( Amer) Est GFR (Non-Af Amer) POC Glucose (mg/dL) 145 H Random Glucose Calcium Total Bilirubin AST ALT Alkaline Phosphatase Total Protein Albumin Globulin Albumin/Globulin Ratio Urine Color Urine Appearance Urine pH Ur Specific [place] Urine Protein Urine Glucose (UA) Urine Ketones Urine Blood Urine Nitrate Urine Bilirubin Urine Urobilinogen Ur Leukocyte Esterase Urine RBC Urine WBC Ur Epithelial Cells Urine Bacteria Valproic Acid DSM 5 Symptoms Update: shortly patient is 41 years old -[place] female, long and debilitating history of schizophrenia vs schizoaffective, treatment resistant, multiple admissions to the psychiatric inpatient unit in the past, including to this hospital (last admission was on 10/27/17), pt was d/c from [facility] Sep 16 2017, currently is followed by [facility] PACT team, pt is on clozaril and Haldol Dec. pt was brought in by EMS after pt's mother called 911 because pt verbalized SI, superficially cut her left wrist (no sutures, no blood), pt had decreased care, her apartment was unkempt, pt requires further evaluation and stabilization, meds adjustment. patient was seen today in her room, pt presented relatively well, seems in good mood, but it is on very superficial level, but when talk to the pt more in details, pt is very disorganized, pt had delusions that she belongs to the [employer], pt also has erotomanic delusions towards imaginary , but at the same time no agitation/no aggression, compliance with meds good. discussed with PACT team today, possible d/c tomorrow. From the previous admission: patient was admitted to ICU at [facility] in June 23 through June 25, status post overdose on Clozaril, status post suicidal attempt. Patient was then transferred to [facility] where she spent past 3 months patient was discharged from the [facility] September 16, 2017. pt reported no side effects from meds, none observed AIMS 0, no EPS. Impression: schizoaffective disorder Medication Change: No Medical Record Reviewed: Yes Consults ordered or reviewed: UA was positive for leukocyte esterase saw pt. Mental Status Examination - Cognitive Function Orientation: Person, Place Memory: Intact Attention: Poor (somewhat better) Concentration: Poor (somewhat better) Association: Loose Fund of Knowledge: Poor - Mood Mood: Depressed ("I am alright") - Affect Affect: Constricted - Speech Speech: Slurred - Formal Thought Process Formal Thought Process: Hallucinations, Delusions, Paranoia, Loosening of associations - Suicidal Ideation Suicidal Ideation: No - Homicidal Ideation Homicidal Ideation: No Goal/Treatment Plan - Goal/Treatment Plan Need for Continued Stay: Remain at risks for inpatient hospitalization, Severe depression anxiety, Discharge may exacerbated symptoms, Failed transitioning, Severe functional impairment Progress Toward Problem(s) and Goals/Treatment Plan: Milieu/structure/supportive therapy Medical consult appreciated, see medical team note for more detailed info SW consultation for discharge plan and social issues Med management Haldol decanoate 100 mg IM every month was last dose was 11/03/17 confirmed by PACT Clozaril 350 mg by mouth at the nighttime for psychosis Cogentin 1 mg daily Iron pill 325 mg by mouth daily Folic acid 1 mg by mouth daily Haldol 10 mg by mouth daily for psychosis Januvia 50 mg by mouth daily Metformin 1000 mg by mouth twice a day Multivitamins 1 daily Lipitor 20 mg at the nighttime Depakote 1000 a day for mood stabilization depakote level was 32 11/11/17, most likely pt was noncompliant, last admission pt was on the same dose of Depakote but level was 62 10/23/17 depakote level 11/18/17 60 Patient is on Clozaril and blood need to be monitored weekly, ,no signs of agranulocytosis. celexa d/c because of potential side effect Leukocytosis (last admission) Family involvement Follow up on labs Will monitor closely Pt was educated about risk/benefits and alternatives of medications, coping strategies (safety plan, suicide prevention), relapse prevention, importance of follow up with psychiatrist and therapist, stay away from drugs/alcohol/smoking Estimated Date of D/C: 11/21/17
[2017-11-21 06:51] VITALS: TEMP 98.1
[2017-11-21] MEDS: Insulin Reg-MEDIUM-Coverage SC SCH ×3 (09:00→16:23)
[2017-11-21] MEDS: Multivitamin Therapeutic Tab PO SCH (09:00)
[2017-11-21] MEDS: Divalproex 500 mg DR(BID formulation) PO SCH ×2 (09:00→16:11)
--- NOTE | 2017-11-21 09:02 | PN ---
DATE: 11/21/2017 SUBJECTIVE: I saw her eating breakfast this morning. She is in good spirits. She is feeling well improving. MEDICATIONS: She is on Clozaril, Cogentin, Depakote, Feosol, folic acid, Glucophage, Haldol, insulin, Januvia, Lipitor, Norvasc and Thera-Tabs. PHYSICAL EXAMINATION: VITAL SIGNS: She has a 98.1 temp, 78 pulse, 114/77 blood pressure, 20 respiratory rate. HEENT: Head is atraumatic, normocephalic. HEART: Regular rate. LUNGS: Clear to auscultation. ABDOMEN: Soft, nontender. Positive bowel sounds. Obese. EXTREMITIES: No edema. She is in good spirits. She is happy. LABORATORY DATA: Last blood tests were on 11/19/2017, she did well. Last blood sugar was 137. ASSESSMENT AND PLAN: She is being followed by Psychiatry. They were adjusting her medications. It is very possible she would be close to being at her baseline. She has urinary tract infection, she is off the antibiotics; suicidal ideation; auditory hallucinations; diabetes; hypertension; high cholesterol; bipolar. As per Psychiatry and adjustment of medications and when they feel that she is ready, they will have her readied for discharge when they deemed necessary and appropriate. Thank you for allowing me to participate. Jason Contreras DO
--- NOTE | 2017-11-21 14:43 | PCM.PYCHDC ---
Mental Status Examination - Mental Status Examination Orientation: Person, Place, Situation, Time Memory: Impaired (baseline) Mood: Neutral Affect: Constricted (but reactive and mood-congruent) Speech: Soft Attention: Poor (baseline) Concentration: Poor (baseline) Association: Loose (baseline) Fund of Knowledge: Poor (aseline) Formal Thought Process: Delusions (catatonic delusions, disorganized thoughts, baseline) Description of patient's judgement and insight: Pt has improved insight into mental and medical illness, pt was compliant with medications and unit rules and regulations, pt was going to groups, was calm, cooperative, socially appropriate, no behavioral incidents, no agitation, no aggression. Psychotic Thoughts and Behaviors: Pt denied v/a/t hallucinations, denied paranoid ideations, pt does not appear to be psychotic, and thought process is goal directed. Suicidal Ideation: No Current Homicidal Ideation?: No Plan: pt adamantly denied thoughts of harming self or others denied intent or plan. Discharge Summary - Discharge Note Reason for Hospitalization: possible suicidal ideation and suicidal gestures please see admission note for more detailed information Psychiatric History (includes Medical, Family, Personal Hx): chronic schizophrenia, treatment resistant Laboratory Data: Abnormal Lab Results 11/20/17 11/20/17 11/21/17 16:06 21:05 07:17 POC Glucose (mg/dL) 129 H 189 H 137 H 11/21/17 11:00 POC Glucose (mg/dL) 253 H 11/19/17 07:00 11/19/17 07:00 Lab Results 11/21/17 11:00: POC Glucose (mg/dL) 253 H 11/21/17 07:17: POC Glucose (mg/dL) 137 H 11/20/17 21:05: POC Glucose (mg/dL) 189 H 11/20/17 16:06: POC Glucose (mg/dL) 129 H 11/20/17 11:13: POC Glucose (mg/dL) 145 H 11/20/17 07:23: POC Glucose (mg/dL) 152 H 11/19/17 21:01: POC Glucose (mg/dL) 185 H 11/19/17 19:08: Urine Color Yellow, Urine Appearance Clear, Urine pH 6.0, Ur Specific [place] 1.020, Urine Protein Negative, Urine Glucose (UA) Negative, Urine Ketones 40 H, Urine Blood Small H, Urine Nitrate Negative, Urine Bilirubin Negative, Urine Urobilinogen 0.2, Ur Leukocyte Esterase Negative, Urine RBC 5 - 10, Urine WBC 2 - 5, Ur Epithelial Cells 3 - 4, Urine Bacteria Few 11/19/17 16:16: POC Glucose (mg/dL) 124 H 11/19/17 11:22: POC Glucose (mg/dL) 178 H 11/19/17 07:17: POC Glucose (mg/dL) 143 H 11/19/17 07:00: Sodium 140, Potassium 4.3, Chloride 101, Carbon Dioxide 26, Anion Gap 17, BUN 8, Creatinine 0.4 L, Est GFR ( Amer) > 60, Est GFR (Non -Af Amer) > 60, Random Glucose 133 H, Calcium 9.0, Total Bilirubin 0.2, AST 19, ALT 16, Alkaline Phosphatase 72, Total Protein 6.9, Albumin 3.7, Globulin 3.2, Albumin/Globulin Ratio 1.2 11/19/17 07:00: WBC 9.7 D, RBC 4.01, Hgb 11.1 L, Hct 33.6 L, MCV 83.8, MCH 27.7 , MCHC 33.0, RDW 15.9 H, Plt Count 351, MPV 8.8 11/18/17 21:06: POC Glucose (mg/dL) 189 H 11/18/17 16:14: POC Glucose (mg/dL) 93 11/18/17 11:11: POC Glucose (mg/dL) 145 H 11/18/17 07:16: POC Glucose (mg/dL) 142 H 11/18/17 07:00: Valproic Acid 60 11/17/17 20:56: POC Glucose (mg/dL) 228 H 11/17/17 15:51: POC Glucose (mg/dL) 209 H 11/17/17 15:20: WBC 13.3 H D, RBC 4.42, Hgb 12.6, Hct 37.0, MCV 83.7, MCH 28.5, MCHC 34.1, RDW 16.0 H, Plt Count 369, MPV 8.7, Gran % 58.7, Lymph % (Auto) 34.5 , [place] % (Auto) 6.2 H, Eos % (Auto) 0.3 L, Baso % (Auto) 0.3, Gran # 7.82 H, Lymph # (Auto) 4.6 H, [place] # (Auto) 0.8 H, Eos # (Auto) 0.0, Baso # (Auto) 0.04 11/17/17 12:00: POC Glucose (mg/dL) 132 H 11/17/17 07:22: POC Glucose (mg/dL) 162 H 11/16/17 21:06: POC Glucose (mg/dL) 194 H 11/16/17 16:10: POC Glucose (mg/dL) 136 H 11/16/17 11:07: POC Glucose (mg/dL) 157 H 11/16/17 07:28: POC Glucose (mg/dL) 126 H 11/15/17 21:13: POC Glucose (mg/dL) 266 H 11/15/17 16:03: POC Glucose (mg/dL) 166 H 11/15/17 11:31: POC Glucose (mg/dL) 242 H 11/15/17 07:16: POC Glucose (mg/dL) 135 H 11/14/17 20:47: POC Glucose (mg/dL) 190 H 11/14/17 16:01: POC Glucose (mg/dL) 190 H 11/14/17 11:09: POC Glucose (mg/dL) 190 H 11/14/17 07:22: POC Glucose (mg/dL) 169 H 11/13/17 21:13: POC Glucose (mg/dL) 257 H 11/13/17 16:20: POC Glucose (mg/dL) 162 H 11/13/17 11:12: POC Glucose (mg/dL) 158 H 11/13/17 07:16: POC Glucose (mg/dL) 146 H 11/12/17 21:09: POC Glucose (mg/dL) 147 H 11/12/17 16:22: POC Glucose (mg/dL) 141 H 11/12/17 11:16: POC Glucose (mg/dL) 163 H 11/12/17 07:00: Sodium 140, Potassium 4.4, Chloride 101, Carbon Dioxide 27, Anion Gap 16, BUN 9, Creatinine 0.3 L, Est GFR ( Amer) > 60, Est GFR (Non -Af Amer) > 60, Random Glucose 147 H, Calcium 9.0, Total Bilirubin 0.3, AST 28, ALT 14, Alkaline Phosphatase 67, Total Protein 7.3, Albumin 3.8, Globulin 3.4, Albumin/Globulin Ratio 1.1 11/12/17 07:00: WBC 10.9, RBC 3.98, Hgb 11.1 L, Hct 33.6 L, MCV 84.4, MCH 27.9, MCHC 33.0, RDW 16.4 H, Plt Count 332, MPV 8.6 11/12/17 06:00: POC Glucose (mg/dL) 157 H 11/11/17 21:28: POC Glucose (mg/dL) 188 H 11/11/17 15:54: POC Glucose (mg/dL) 167 H 11/11/17 11:23: POC Glucose (mg/dL) 189 H 11/11/17 07:20: POC Glucose (mg/dL) 155 H 11/11/17 06:56: Valproic Acid 32 L 11/11/17 06:56: RPR Nonreactive 11/11/17 06:56: Free T4 0.92, TSH 3rd Generation 1.53 11/11/17 06:56: Fasting Glucose 154 H, Triglycerides 197 H, Cholesterol 199, LDL Cholesterol Direct 139 H, HDL Cholesterol 31 11/10/17 21:03: POC Glucose (mg/dL) 214 H 11/10/17 13:15: Alcohol, Quantitative < 10 11/10/17 13:15: Salicylates < 1 L, Acetaminophen < 10.0 L 11/10/17 13:15: Sodium 141, Potassium 4.0, Chloride 101, Carbon Dioxide 23, Anion Gap 21 H, BUN 8, Creatinine 0.4 L, Est GFR ( Amer) > 60, Est GFR ( Non-Af Amer) > 60, Random Glucose 180 H, Calcium 9.5, Magnesium 1.6 L, Total Bilirubin 0.1 L, AST 22, ALT 17, Alkaline Phosphatase 91, Total Protein 8.0, Albumin 4.3, Globulin 3.6, Albumin/Globulin Ratio 1.2 11/10/17 13:15: WBC 10.7, RBC 4.22, Hgb 12.1, Hct 35.8 L, MCV 84.8, MCH 28.7, MCHC 33.8, RDW 16.7 H, Plt Count 362, MPV 8.7, Gran % 56.4, Lymph % (Auto) 35.0 , [place] % (Auto) 8.0 H, Eos % (Auto) 0.3 L, Baso % (Auto) 0.3, Gran # 6.04, Lymph # (Auto) 3.7 H, [place] # (Auto) 0.9 H, Eos # (Auto) 0.0, Baso # (Auto) 0.03 11/10/17 13:00: Urine Opiates Screen Negative, Urine Methadone Screen Negative, Ur Barbiturates Screen Negative, Ur Phencyclidine Scrn Negative, Ur Amphetamines Screen Negative, U Benzodiazepines Scrn Negative, U Oth Cocaine Metabols Negative, U Cannabinoids Screen Negative 11/10/17 13:00: Urine Color Yellow, Urine Appearance Sl cloudy, Urine pH 6.5, Ur Specific [place] 1.025, Urine Protein Trace H, Urine Glucose (UA) 250 H, Urine Ketones 15 H, Urine Blood Large H, Urine Nitrate Negative, Urine Bilirubin Negative, Urine Urobilinogen 0.2, Ur Leukocyte Esterase Trace H, Urine RBC 15 - 20, Urine WBC 2 - 5, Ur Epithelial Cells 4 - 5, Urine Bacteria Mod, Urine HCG, Qual Negative Vital Signs Temp Pulse Pulse Resp BP Pulse Ox 11/21/17 08:59 114/77 11/21/17 06:50 98.1 F 78 20 114/77 11/20/17 15:47 100 H 133/88 11/20/17 08:59 134/94 H 11/19/17 16:00 105 H 134/94 H 11/19/17 09:23 111/79 11/19/17 06:50 97.7 F 82 20 111/79 11/18/17 16:30 93 H 107/72 11/18/17 10:34 115/82 11/18/17 07:21 98.1 F 83 20 115/82 11/17/17 15:45 105 H 136/90 11/17/17 08:29 105/68 11/17/17 06:40 97.6 F 80 20 105/68 11/16/17 16:00 104 H 134/93 H 11/16/17 08:38 114/82 11/16/17 07:10 98.1 F 82 20 114/82 11/15/17 15:52 111 H 146/94 H 11/15/17 08:49 128/86 11/15/17 07:05 98.1 F 87 20 128/86 11/14/17 22:28 132/88 11/14/17 15:00 104 H 132/88 11/14/17 09:09 117/79 11/14/17 06:56 98.1 F 78 18 117/79 11/13/17 08:44 115/77 11/13/17 07:26 97.7 F 81 20 118/80 11/12/17 15:00 95 H 112/73 11/12/17 09:05 136/88 11/12/17 07:00 98.1 F 83 20 136/88 99 11/12/17 06:45 98.1 F 83 20 136/88 99 11/11/17 15:59 100 H 139/86 11/11/17 09:16 106/61 11/11/17 06:29 98.0 F 78 14 99/62 L 11/10/17 16:37 68 16 11/10/17 16:16 88 16 110/67 11/10/17 14:56 98.7 F 90 18 107/64 100 Consultations:: List each consultation separately and include: 1. Reason for request. 2. Findings. 3. Follow-up Consultations: UA was positive for leukocyte esterase saw pt. please see notes for more detailed information. Summary of Hospital Course include:: 1. Description of specific treatment plan utilized for patients during their course of treatmen. 2. Summarize the time- course for resolution of acute symptoms and/or regressed behaviors. 3. Describe issues identified and worked on during hospitalization. 4. Describe medication utilized. 5. Describe medical problems identified and treated. 6. Reassessment of suicide risk Summary of Hospital Course: shortly patient is 41 years old -[place] female, long and debilitating history of schizophrenia vs schizoaffective, treatment resistant, multiple admissions to the psychiatric inpatient unit in the past, including to this hospital (last admission was on 10/27/17), pt was d/c from [facility] Sep 16 2017, currently is followed by [facility] PACT team, pt is on clozaril and Haldol Dec. pt was brought in by EMS after pt's mother called 911 because pt verbalized SI, superficially cut her left wrist (no sutures, no blood), pt had decreased care, her apartment was unkempt, pt requires further evaluation and stabilization, meds adjustment. Initially patient was seen and examined in her room. discussed with staff, chart reviewed. last admission pt was discharged on the following meds: Haldol decanoate 100 mg IM monthly last injection was scheduled on 11/03/17, but not sure if she got it or not Clozaril 350 mg by mouth at the nighttime for psychosis Cogentin 1 mg daily Iron pill 325 mg by mouth daily Folic acid 1 mg by mouth daily Haldol 5 mg by mouth daily for psychosis Januvia 50 mg by mouth daily Metformin 1000 mg by mouth twice a day Multivitamins 1 daily Lipitor 20 mg at the nighttime Depakote 500 mg twice a day for mood stabilization Patient is on Clozaril and blood need to be monitored weekly patient presented to be withdrawn, depressed, flat affect, patient reported that she had argument with her mom about her frequent shopping and overspending , patient reported that prior to come to the hospital yesterday at the morning time they had argument, patient reported when her mother stepped out to take garbage she was feeling "hopeless, and depressed, I was feeling very down, I wanted to show her how upset I was, I grab a knife and I cut my wrist" patient said her intent was to show her mother how upset she was and patient denied that she wanted to kill herself. Patient reported that she is compliant with the medications, no side effects. Patient reported that she is hearing voices "they say that they're going to attack me, I was scared, I didn't know what to do I did not know where to go". as per collateral information from the PACT team Lisa by ELYSSA pt was not taking care of herself, apartment was a mess, pt also was overspending. Pt was compliant with medications. From the previous admission: patient was admitted to ICU at [facility] in June 23 through June 25, status post overdose on Clozaril, status post suicidal attempt. Patient was then transferred to [facility] where she spent past 3 months patient [facility]. pt reported no side effects from meds, none observed AIMS 0, no EPS. patient was continued on her medications, Haldol was increased to 10 mg at the nighttime, Depakote level was low most likely patient was noncompliant with the medications. Patient improved,deemed to be ready for discharge, was not having any agitation or aggression, compliance with the medications good. Patient was visited by PACT team, pt seems to be at her baseline of functioning pt was educated about Prison placement again, but pt refused to, "I work really hard to get that apartment, I want to live independently". Over the course of this hospitalization pt was attending groups, pt also had medication management, had therapeutic milieu. Overall pt improved, pt's affect became brighter, pt was less depressed, has future oriented plans, pt seems to be at her baseline of functioning, pt was socially appropriate, no behavioral issues, pts insight improved as well and soon pt deemed to be ready for discharge. At the time of the discharge pt denied been depressed, denied thoughts of harming self or others, denied psychotic symptoms, and pt does not appeared to be psychotic, denied been anxious, pt is not in imminent danger to self or others, will be following up with PACT team information about follow up appointment, time and address provided to the pt, it is patient responsibility to follow up with outpatient clinic, PMD as well as specialists (see SW note for more detailed information). In case pt will need to obtain results of studies pending at discharge pt was provided with contact information of Psychiatric Inpatient unit [phone] as well as Medical Record Department [phone]. prescriptions were faxed over to the PACT team see med reconciliation CBC with differential script was given Clozaril [facility] was contacted and labs were submitted weekly no signs of agranulocytosis Pt was educated about safety plan in case of worsening of symptoms or in case of suicidal or homicidal ideation call 911 or go to the nearest ER, also was educated to take meds as prescribed and stay away from drugs, pt verbalized understanding. d/c took more than 45min - Diagnosis (1) Schizoaffective disorder, bipolar type Current Visit: No Status: Chronic Priority: High - Final Diagnosis (DSM 5) Condition upon Discharge: STABLE Disposition: HOME/ ROUTINE Follow-up Treatment Plan: At the time of the discharge pt denied been depressed, denied thoughts of harming self or others, denied psychotic symptoms, and pt does not appeared to be psychotic, denied been anxious, pt is not in imminent danger to self or others, will be following up with PACT team information about follow up appointment, time and address provided to the pt, it is patient responsibility to follow up with outpatient clinic, PMD as well as specialists (see SW note for more detailed information). In case pt will need to obtain results of studies pending at discharge pt was provided with contact information of Psychiatric Inpatient unit [phone] as well as Medical Record Department [phone]. prescriptions were faxed over to the PACT team see med reconciliation CBC with differential script was given Clozaril [facility] was contacted and labs were submitted weekly no signs of agranulocytosis Pt was educated about safety plan in case of worsening of symptoms or in case of suicidal or homicidal ideation call 911 or go to the nearest ER, also was educated to take meds as prescribed and stay away from drugs, pt verbalized understanding. d/c took more than 45min Prescriptions/Medication Reconciliation: Haloperidol Decanoate [Haldol Decanoate] 100 mg IM Q30D #1 amp amLODIPine [Norvasc] 10 mg PO DAILY #7 tab Aspirin [Ecotrin] 81 mg PO DAILY #7 tabec Atorvastatin [Lipitor] 20 mg PO HS #7 tab Benztropine [Cogentin] 1 mg PO HS #7 tab Clozapine [Fazaclo] 150 mg PO HS #7 odt Clozapine [Clozapine Odt] 200 mg PO HS #7 tab.rapdis Divalproex [Depakote DR(*BID*)] 500 mg PO BID #30 tcp Ferrous Sulfate [Feosol] 324 mg PO DAILY #7 ect Folic Acid 1 mg PO DAILY #7 tab Haloperidol [Haldol] 10 mg PO HS #14 tab MetFORMIN [glucoPHAGE] 1,000 mg PO BID #14 tab Multivitamin Therapeutic Tab [Thera Tab] 1 tab PO 0800 #14 tab SITagliptin [Januvia] 50 mg PO DAILY #7 tab - Smoking Cessation Smoking Cessation Medication prescribed: No Reason for not providing: pt does not smoke - Antipsychotic Medications Pt discharged on 2 or more routine antipsychotic medications: Yes - Justification for 2 or more meds Failed 3 or more trials of Monotherapy: List medications: pt is on two antipsychotic meds. patient has treatment resistant schizophrenia as of now patient is to continue on Haldol Decanoate as well as Clozaril. Augmentation of Clozapine: Yes (patient is on Clozaril)
[2017-11-21 16:12] VITALS: BP 132/84; PULSE 100
== END 2017-11-21 17:11 | disposition home or self-care (01) | DRG 885 ==
LOC: ED 12:41 → ERH 15:17 → PSYC 16:21
PROVIDERS: ADMIT Psychiatry & Neurology Psychiatry; ATTEND Psychiatry & Neurology Psychiatry
PROC: GZ3ZZZZ Medication Management (ICD-10-PCS; principal; 2017-11-10)
DX: F25.0 Schizoaffective disorder, bipolar type (principal); N39.0 Urinary tract infection, site not specified; I10 Essential (primary) hypertension; E78.00 Pure hypercholesterolemia, unspecified; E11.9 Type 2 diabetes mellitus without complications; F41.9 Anxiety disorder, unspecified; E78.5 Hyperlipidemia, unspecified; D64.9 Anemia, unspecified; Z91.5 Personal history of self-harm; Z91.14 Patient's other noncompliance with medication regimen; Z87.891 Personal history of nicotine dependence

== ENCOUNTER 2017-12-08 14:50 | Inpatient (IN) | payer MEDICARE, MEDICAID ==
[2017-12-08 14:51] VITALS: BMI 28.1
--- NOTE | 2017-12-08 15:46 | ED PDOC ---
Arrival/HPI - General Chief Complaint: Psychiatric Evaluation Time Seen by Provider: 12/08/17 14:58 Historian: Patient - History of Present Illness Narrative History of Present Illness (Text): 12/08/17 15:40 A 42 year old female, whose past medical history includes schizophrenia, presents to the emergency room expressing suicidal ideation. The patient states that she was hearing voices telling her to harm herself and her cat. She notes that she strangled her cat and called 911 because she wanted to get help. She denies drug use and notes that she drinks beer occasionally. The patient denies fevers, chills, headache, dizziness, sore throat, cough, chest pain, shortness of breath, dyspnea on exertion, abdominal pain, nausea, vomiting, diarrhea, neck /back pain, urinary/bowel changes, homicidal ideation, visual hallucinations, or any other complaint. Time/Duration: Prior to Arrival Symptom Onset: Sudden Symptom Course: Unchanged Activities at Onset: Rest, Light Context: Home Past Medical History - Provider Review Nursing Documentation Reviewed: Yes - Past History Past History: Non-Contributing - Infectious Disease Hx of Infectious Diseases: None - Tetanus Immunization Tetanus Immunization: Unknown - Cardiac Hx Hypertension: Yes - Neurological Hx Seizures: Yes - HEENT Hx HEENT Disorder: No - Renal Hx Renal Disorder: No - Endocrine/Metabolic Hx Endocrine Disorders: Yes Hx Diabetes Mellitus Type 2: Yes - Hematological/Oncological Hx Anemia: Yes - Integumentary Hx Dermatological Disorder: No - Musculoskeletal/Rheumatological Hx Musculoskeletal Disorders: No - Gastrointestinal Hx Gastrointestinal Disorders: No - Genitourinary/Gynecological Hx Sexually Transmitted Diseases: No - Psychiatric Hx Anxiety: Yes Hx Bipolar Disorder: Yes Hx Depression: Yes Hx Schizophrenia: Yes Hx Substance Use: No - Anesthesia Hx Anesthesia: No Hx Anesthesia Reactions: No Hx Malignant Hyperthermia: No - Suicidal Assessment Feels Threatened In Home Enviroment: No Family/Social History - Physician Review Nursing Documentation Reviewed: Yes Family/Social History: No Known Family HX Smoking Status: Former Smoker Hx Alcohol Use: Yes Frequency of alcohol use: Few days per week Hx Substance Use: No Hx Substance Use Treatment: No Allergies/Home Meds Allergies/Adverse Reactions: Allergies No Known Allergies Allergy (Verified 12/08/17 15:23) Review of Systems - Physician Review All systems were reviewed & negative as marked: Yes - Review of Systems Constitutional: absent: Fevers, Night Sweats ENT: absent: Sore Throat Respiratory: absent: SOB, Cough Cardiovascular: absent: Chest Pain, DOWNEY Gastrointestinal: absent: Abdominal Pain, Stool Changes, Diarrhea, Nausea, Vomiting Genitourinary Female: absent: Urine Output Changes Musculoskeletal: absent: Back Pain, Neck Pain Neurological: absent: Headache, Dizziness Psychiatric: Suicidal Ideation Physical Exam Vital Signs Reviewed: Yes Vital Signs Temp Pulse Resp BP Pulse Ox 12/08/17 15:23 98.8 F 96 H 16 139/88 99 Temperature: Afebrile Blood Pressure: Normal Pulse: Tachycardic Respiratory Rate: Normal Appearance: Positive for: Well-Appearing, Non-Toxic, Comfortable Pain Distress: None Mental Status: Positive for: Alert and Oriented X 3 - Systems Exam Head: Present: Atraumatic, Normocephalic Pupils: Present: PERRL Extroacular Muscles: Present: EOMI Conjunctiva: Present: Normal Mouth: Present: Moist Mucous Membranes Neck: Present: Normal Range of Motion Respiratory/Chest: Present: Clear to Auscultation, Good Air Exchange. No: Respiratory Distress, Accessory Muscle Use Cardiovascular: Present: Regular Rate and Rhythm, Normal S1, S2. No: Murmurs Abdomen: No: Tenderness, Distention, Peritoneal Signs Back: Present: Normal Inspection Upper Extremity: Present: Normal Inspection. No: Cyanosis, Edema Lower Extremity: Present: Normal Inspection. No: Edema Neurological: Present: GCS=15, CN II-XII Intact, Speech Normal Skin: Present: Warm, Dry, Normal Color. No: Rashes Psychiatric: Present: Alert, Oriented x 3, Normal Insight, Normal Concentration , Suicidal Ideation Medical Decision Making ED Course and Treatment: 12/08/17 15:46 Impression: A 42 year old female presents to the emergency room expressing suicidal ideation after hearing voices in her head telling her to harm herself and her cat. Plan: -- EKG -- Chest X-ray -- Labs -- Urinalysis -- Reassess and disposition Progress Notes: 12/08/17 17:38 EKG: Ordered, reviewed, and independently interpreted the EKG. Rate : 94 BPM Rhythm : NSR Interpretation : No ST elevations. Normal intervals. Normal axis. 12/08/17 18:34: PES evaluated patient. 12/08/17 18:53: PES request face- to- face evaluation by psychiatrist. - Lab Interpretations Lab Results: 12/08/17 15:02 12/08/17 15:02 Lab Results 12/08/17 16:49: Urine Opiates Screen Negative, Urine Methadone Screen Negative, Ur Barbiturates Screen Negative, Ur Phencyclidine Scrn Negative, Ur Amphetamines Screen Negative, U Benzodiazepines Scrn Negative, U Oth Cocaine Metabols Negative, U Cannabinoids Screen Negative 12/08/17 16:49: Urine Color Yellow, Urine Appearance Clear, Urine pH 6.5, Ur Specific Depue 1.025, Urine Protein Trace H, Urine Glucose (UA) Negative, Urine Ketones 15 H, Urine Blood Negative, Urine Nitrate Negative, Urine Bilirubin Negative, Urine Urobilinogen 0.2, Ur Leukocyte Esterase Negative, Urine RBC 0 - 2, Urine WBC Negative, Ur Epithelial Cells 3 - 4, Urine Bacteria None, Hyaline Casts 0 - 2, Urine HCG, Qual Negative 12/08/17 15:02: Alcohol, Quantitative < 10 12/08/17 15:02: Salicylates < 1 L, Acetaminophen < 10.0 L 12/08/17 15:02: Sodium 138, Potassium 4.0, Chloride 98, Carbon Dioxide 25, Anion Gap 20, BUN 8, Creatinine 0.4 L, Est GFR ( Amer) > 60, Est GFR (Non -Af Amer) > 60, Random Glucose 177 H, Calcium 10.0, Total Bilirubin 0.3, AST 26 , ALT 21, Alkaline Phosphatase 83, Total Protein 8.4 H, Albumin 4.7, Globulin 3.7, Albumin/Globulin Ratio 1.2 12/08/17 15:02: WBC 9.8, RBC 4.47, Hgb 12.7, Hct 37.4, MCV 83.7, MCH 28.4, MCHC 34.0, RDW 16.3 H, Plt Count 336, MPV 9.1, Gran % 46.8 L, Lymph % (Auto) 44.2 H, [place] % (Auto) 7.7 H, Eos % (Auto) 0.8 L, Baso % (Auto) 0.5, Gran # 4.59, Lymph # (Auto) 4.3 H, [place] # (Auto) 0.8 H, Eos # (Auto) 0.1, Baso # (Auto) 0.05 I have reviewed the lab results: Yes - RAD Interpretation Radiology Orders: 12/08/17 15:39 CHEST ONE VIEW [RAD] Stat - EKG Interpretation Interpreted by ED Physician: Yes Type: 12 lead EKG - Transfer of Care Patient signed out to Dr:: Samia Other: Pending psych face to face evaluation - Scribe Statement The provider has reviewed the documentation as recorded by the Scribe Aundrea Clifford Provider Scribe Attestation: All medical record entries made by the Scribe were at my direction and personally dictated by me. I have reviewed the chart and agree that the record accurately reflects my personal performance of the history, physical exam, medical decision making, and the department course for this patient. I have also personally directed, reviewed, and agree with the discharge instructions and disposition. Disposition/Present on Arrival - Present on Arrival Any Indicators Present on Arrival: No History of DVT/PE: No History of Uncontrolled Diabetes: No Urinary Catheter: No History of Decub. Ulcer: No History Surgical Site Infection Following: None - Disposition Have Diagnosis and Disposition been Completed?: Yes Diagnosis: Suicidal ideation, Schizophrenia Disposition Time: 19:00 Condition: STABLE Forms: [employer] (Guyanese)
[2017-12-08 16:08] LABS: BASO # 0.05 K/mm3 (0.0-2.0); BASO % 0.5 % (0.0-3.0); EOS # 0.1 (0.0-0.7); EOS % 0.8 % (1.5-5.0); GRAN # 4.59 (1.4-6.5); GRAN % 46.8 % (50.0-68.0); HEMOGLOBIN 12.7 g/dL (12.0-16.0); LYMPH # 4.3 (1.2-3.4); LYMPH % 44.2 % (22.0-35.0); MEAN CELL VOLUME 83.7 fl (80.0-105.0); MEAN CORPUSCULAR HEMOGLOBIN 28.4 pg (25.0-35.0); MEAN PLATELET VOLUME 9.1 fl (7.0-11.0); MONO # 0.8 (0.1-0.6); MONO % 7.7 % (1.0-6.0); RBC 4.47 10^6/uL (3.5-6.1); RED CELL DISTRIBUTION WIDTH 16.3 % (11.5-14.5); WHITE BLOOD COUNT 9.8 10^3/ul (4.5-11.0)
[2017-12-08 16:15] LABS: ACETAMINOPHEN < 10.0 ug/ml (10.0-20.0); SALICYLATE < 1 mg/dL (2.0-20.0)
[2017-12-08 16:20] LABS: ALB/GLOB RATIO 1.2 (1.1-1.8); ALBUMIN 4.7 g/dL (3.0-4.8); ALT/SGPT 21 U/L (7-56); AST/SGOT 26 U/L (14-36); BLOOD UREA NITROGEN 8 mg/dL (7-21); GFR AFRICAN-AMERICAN > 60; GFR NON-AFRICAN AMERICAN > 60
[2017-12-08 17:05] LABS: PH,URINE 6.5 (4.7-8.0); URINE BILIRUBIN NEGATIVE (NEGATIVE); URINE BLOOD NEGATIVE (NEGATIVE); URINE GLUCOSE (UA) NEGATIVE (NEGATIVE); URINE LEUKOCYTE ESTERASE NEGATIVE Leu/uL (NEGATIVE); URINE PROTEIN TRACE mg/dL (<30 mg/dL); URINE UROBILINOGEN 0.2 E.U./dL (<1 E.U./dL)
[2017-12-08 17:07] LABS: URINE APPEARANCE CLEAR (CLEAR); URINE COLOR YELLOW (YELLOW)
[2017-12-08 17:09] LABS: HCG,QUALITATIVE URINE NEGATIVE (NEGATIVE)
[2017-12-08 17:13] LABS: URINE HYALINE CAST 0 - 2 /hpf; URINE RBC 0 - 2 /hpf (0-2); URINE WBC NEGATIVE /hpf (0-6)
[2017-12-08 17:32] LABS: BARBITURATES, UR NEGATIVE (NEGATIVE); BENZODIAZEPINES, UR NEGATIVE (NEGATIVE); OPIATES, UR NEGATIVE (NEGATIVE); PHENCYCLIDINE, UR NEGATIVE (NEGATIVE)
--- NOTE | 2017-12-08 21:57 | CARD ---
APPROVED REPORT Date of service: 12/08/2017 EKG Measurement Heart [id number] <Conclusion> Normal sinus rhythm Cannot rule out Anterior infarct, age undetermined Abnormal ECG
[2017-12-09 07:50] VITALS: O2SAT 99
[2017-12-09] MEDS ORDERED: Magnesium Hydroxide Susp 30 ml UD PO PRN (09:29)
[2017-12-09] MEDS ORDERED: Alum-Mag Hydrox-Simethicone Susp (30 mL) PO PRN (09:29)
--- NOTE | 2017-12-09 10:28 | RAD ---
Date of service: 12/09/2017 HISTORY: psych COMPARISON: 10/22/2017. FINDINGS: LUNGS: No active pulmonary disease. PLEURA: No significant pleural effusion identified, no pneumothorax apparent. CARDIOVASCULAR: Normal. OSSEOUS STRUCTURES: No significant abnormalities. VISUALIZED UPPER ABDOMEN: Normal. OTHER FINDINGS: None. IMPRESSION: No active disease. No significant interval change compared to the prior examination(s).
[2017-12-09] MEDS: Multivitamin Therapeutic Tab PO SCH (12:27)
--- NOTE | 2017-12-09 15:42 | PCM.BM ---
Treatment Plan Problems - Problems identified on initial assessmt Problem 1 Date Initiated: 12/09/17 Time Initiated: 15:36 Assessment reference: NA Status: Active Problem 2 Date Initiated: 12/09/17 Time Initiated: 15:37 Assessment reference: NA Status: Active Problem 3 Date Initiated: 12/09/17 Time Initiated: 15:37 Treatment assets and liabiliti Patient Assests: adapts well, cooperative, self-reliant, ADL independent, negotiates basic needs, cognitively intact, good interpersonal skills Patient Liabilities: live alone, medical problems - Milieu Protocol Maintain good personal hygiene: every shift Encourage regular showers, every shift Remind patient to perform daily oral care, every shift Assist patient to perform ADL's Conduct patient checks and document Observation sheet: Q15 minutes Maintain personal safety: every shift Educate patient to report safety concerns to staff, every shift Monitor environment for contraband/sharps Medication safety: Monitor for expected outcome, potential side effects: every shift, Assess barriers to learning: every shift, Assess readiness for medication education: every shift Family Contact Family involvement: Family/SO is involved
[2017-12-09] MEDS: Insulin Reg-MEDIUM-Coverage SC SCH ×2 (16:37→21:27)
[2017-12-09] MEDS: Divalproex 500 mg DR(BID formulation) PO SCH (16:38)
--- NOTE | 2017-12-10 07:01 | CON ---
DATE: 12/09/2017 HISTORY OF PRESENT ILLNESS: I know Gato for many years and she has been in and out of the Psychiatric floor many times. She comes in with a similar picture of suicidal ideation, auditory hallucinations telling her to hurt herself, schizophrenia. She is a 42-year-old female who had multiple admissions to [facility] with hearing voices telling her to harm herself and also her cat. She was her cat but she called 911. PAST MEDICAL HISTORY: She has a past medical history of schizophrenia, auditory hallucinations, suicidal ideations, sudden change. She has seizure history, hypertension, diabetes. She has anxiety, depression, schizophrenia. FAMILY HISTORY: Diabetes in her family. SOCIAL HISTORY: Former smoker. She drinks alcohol few days a week. No substance abuse. ALLERGIES: NO KNOWN DRUG ALLERGIES. REVIEW OF SYSTEMS: No fevers or night sweats. No sore throat. No shortness of breath or cough. No chest pain or dyspnea on exertion or palpitations. No abdominal pain. No nausea, vomiting, constipation or diarrhea. No problems urinating. No back pain, no neck pain, no headache or dizziness. There are suicidal ideations and she was told to hurt her cat that is when she called 911. PHYSICAL EXAMINATION VITAL SIGNS: She has 98.8 temperature, 96 pulse, 16 respiratory rate, 139/88 blood pressure, and 99% O2 saturation. GENERAL: She is comfortable now in bed. I saw her in the ER. I also saw her this morning in bed. She is sleeping now, easily awake, arousable. She is alert and oriented x3, well appearing, nontoxic, comfortable. HEENT: Head is atraumatic and normocephalic. Extraocular muscles are intact. Pupils are equal and reactive to light. Throat is moist. NECK: Supple. HEART: Regular rate. Normal S1 and S2. LUNGS: Decreased breath sounds, but clear to auscultation. No wheezes, no rhonchi, no rales. ABDOMEN: Soft, nontender. Positive bowel sounds. No guarding. No rebound. No CVA tenderness. EXTREMITIES: No edema. She can move all four extremities. NEUROLOGIC: GCS is 15. Cranial nerves II through XII grossly intact. Speech is normal. She can stick out her tongue midline. She can squeeze my hands bilaterally with each fingers. She can look at me with H sign with her eyes. Neurologically she is intact. Alert and oriented x3. SKIN: Warm and dry. No apparent rashes or ulcers. LYMPHATICS: Thyroid midline. No palpable lymphadenopathy. LABORATORY DATA: She has a 9.8 white count, 12.7 hemoglobin, 37.4 hematocrit with a 336 platelets. The urine drug screen was negative. Urine was clear. She is not . Sodium 138, potassium is 4, chloride 98, CO2 is 25, anion gap is 20, BUN 8, creatinine 0.4, GFR is greater than 60, sugar is 177, calcium is 10, total bilirubin is 0.3, AST is 26, ALT is 22, alkaline phosphatase 83, total protein is 8.4, albumin is 4.7, globulin 3.7. She will be in a Psychiatric Unit with medication adjustment. She is on aspirin, Clozaril, Cogentin, Depakote, folic acid, Glucophage, Haldol, Januvia, Maalox, milk of magnesia, Norvasc, Thera-Tabs and Tylenol. She will have a blood test tomorrow morning and a urine test. She will continue with the medications. I encouraged her to participate in groups, to take the medication, eat well. She is here for auditory hallucinations, suicidal ideation, schizophrenia, seizures, hypertension, diabetes and hopefully, we will get her feeling better soon. Thank you for allowing me to participate in her care. Jason Contreras DO MTDSantos
[2017-12-10 07:08] LABS: BASO # 0.05 K/mm3 (0.0-2.0); BASO % 0.4 % (0.0-3.0); EOS # 0.1 (0.0-0.7); EOS % 0.9 % (1.5-5.0); GRAN # 5.44 (1.4-6.5); GRAN % 42.5 % (50.0-68.0); LYMPH # 6.1 (1.2-3.4); LYMPH % 47.5 % (22.0-35.0); MEAN CELL VOLUME 83.9 fl (80.0-105.0); MEAN CORPUSCULAR HGB CONC 33.4 g/dl (31.0-37.0); MEAN PLATELET VOLUME 8.6 fl (7.0-11.0); MONO # 1.1 (0.1-0.6); MONO % 8.7 % (1.0-6.0); RBC 4.28 10^6/uL (3.5-6.1); RED CELL DISTRIBUTION WIDTH 16.3 % (11.5-14.5); WHITE BLOOD COUNT 12.8 10^3/ul (4.5-11.0)
[2017-12-10 07:24] LABS: ALB/GLOB RATIO 1.1 (1.1-1.8); ALBUMIN 3.8 g/dL (3.0-4.8); ALT/SGPT 21 U/L (7-56); AST/SGOT 17 U/L (14-36); BLOOD UREA NITROGEN 13 mg/dL (7-21); CALCIUM 8.8 mg/dL (8.4-10.5); GFR AFRICAN-AMERICAN > 60; GFR NON-AFRICAN AMERICAN > 60
[2017-12-10] MEDS: Divalproex 500 mg DR(BID formulation) PO SCH ×2 (08:53→16:47)
[2017-12-10] MEDS: Multivitamin Therapeutic Tab PO SCH (08:53)
[2017-12-10] MEDS: Insulin Reg-MEDIUM-Coverage SC SCH ×4 (08:54→22:42)
--- NOTE | 2017-12-10 10:32 | PN ---
DATE: 12/10/2017 SUBJECTIVE: I saw Gato resting comfortably in bed in the Psychiatric Unit. She is very tired. She has no complaints. She is eating. Just tired. MEDICATIONS: She is on aspirin, Clozaril, Cogentin, Depakote, folic acid, Glucophage, Haldol, insulin, Januvia, Maalox, milk of magnesia, Norvasc, Feratab and Tylenol. PHYSICAL EXAMINATION: VITAL SIGNS: 97.2 temp, 75 pulse, 132/78 blood pressure, 20 respiratory rate, 99% O2 sat on room air. HEENT: Head is atraumatic, normocephalic. HEART: Regular rate. LUNGS: Decreased breath sounds, but clear. ABDOMEN: Soft, nontender. Positive bowel sounds. EXTREMITIES: No edema. LABORATORY DATA: She has a 12.8 white count, it went up from 9.8, we will have to repeat that again; hemoglobin 12; hematocrit 35.9; platelets of 310. She has a 138 sodium, potassium 4.4, BUN 13, creatinine 0.4, GFR is greater than 60. Sugar is 176, better than when she came in. Calcium is 8.8, total bili is 0.3, AST is 17, ALT is 21, alk phos 69, total protein 7.2, TSH is 1.95. Urine was clean and that she is not . Toxicology was clean. I am not sure why her white count elevated, it could be from stress. We will check it again. I encouraged her to take her medications, go to group, follow up, eat and hopefully she will do well. We will check her labs tomorrow. I am happy with the blood sugars coming down. She is here for suicidal ideation, auditory hallucinations, schizophrenia, seizures, hypertension, diabetes and now leukocytosis. Jason Contreras DO
[2017-12-11 07:43] LABS: HEMOGLOBIN 11.8 g/dL (12.0-16.0); MEAN CELL VOLUME 84.1 fl (80.0-105.0); MEAN CORPUSCULAR HEMOGLOBIN 28.8 pg (25.0-35.0); MEAN CORPUSCULAR HGB CONC 34.2 g/dl (31.0-37.0); MEAN PLATELET VOLUME 8.7 fl (7.0-11.0); RBC 4.1 10^6/uL (3.5-6.1); WHITE BLOOD COUNT 12.9 10^3/ul (4.5-11.0)
[2017-12-11] MEDS: Divalproex 500 mg DR(BID formulation) PO SCH ×2 (08:00→17:24)
[2017-12-11 08:06] LABS: ALB/GLOB RATIO 1.1 (1.1-1.8); ALBUMIN 3.8 g/dL (3.0-4.8); ALT/SGPT 17 U/L (7-56); AST/SGOT 17 U/L (14-36); BLOOD UREA NITROGEN 9 mg/dL (7-21); CALCIUM 8.6 mg/dL (8.4-10.5); GFR AFRICAN-AMERICAN > 60; GFR NON-AFRICAN AMERICAN > 60
[2017-12-11] MEDS: Insulin Reg-MEDIUM-Coverage SC SCH ×4 (08:07→21:20)
[2017-12-11] MEDS: Multivitamin Therapeutic Tab PO SCH (08:24)
--- NOTE | 2017-12-11 10:06 | PN ---
DATE: 12/11/2017 SUBJECTIVE: I saw her resting comfortably in bed. She slept well. She is asking me if she can go home today. She tells me she is feeling better. She is on aspirin, Clozaril, Cogentin, Depakote, folic acid, Glucophage, Haldol, Januvia, Maalox, milk of magnesia, Norvasc, Thera-Tabs and Tylenol. OBJECTIVE: VITAL SIGNS: Temperature 97.8, 79 pulse, 119/85 blood pressure, respiratory rate 18. HEENT: Head is atraumatic, normocephalic. Throat is moist. NECK: Supple. HEART: Regular rate. LUNGS: Clear to auscultation. ABDOMEN: Soft, nontender. Positive bowel sounds. Obese. No guarding. No rebound or CVA tenderness. EXTREMITIES: Have no edema. DATA: She has a urine that showed trace protein and no leukocytes. Sodium 138, potassium 4.2, BUN is 9, creatinine 0.4. GFR is greater than 60, sugar is 139, calcium is 8.6, total bili is 0.2, AST is 17, ALT is 17, alkaline phosphatase 71, total protein is 7.1, albumin is 3.8. White count is high at 12.9, not sure why it is still high but know the source for infection. Hemoglobin 11.8, hematocrit 34.5, platelets of 313. I will do another urinalysis, check her labs. I am not ready to put her on antibiotics yet until I find a source for the elevated white count and as per Psychiatry, she has suicidal ideations, auditory hallucinations, schizophrenia, seizure history, hypertension, diabetes and now she has a little leukocytosis. This is a patient who is looking for the source of the leukocytosis. Jason Contreras DO
[2017-12-11 12:35] LABS: URINE BILIRUBIN NEGATIVE (NEGATIVE); URINE BLOOD NEGATIVE (NEGATIVE); URINE GLUCOSE (UA) NEGATIVE (NEGATIVE); URINE LEUKOCYTE ESTERASE NEGATIVE Leu/uL (NEGATIVE); URINE PROTEIN NEGATIVE mg/dL (<30 mg/dL); URINE UROBILINOGEN 0.2 E.U./dL (<1 E.U./dL)
[2017-12-11 12:38] LABS: URINE APPEARANCE CLEAR (CLEAR); URINE COLOR YELLOW (YELLOW)
--- NOTE | 2017-12-11 14:34 | PCM.PSYCH ---
Initial Psychiatric Evaluation - Initial Psychiatric Evaluation Type of Admission: Voluntary Legal Status: Capacity (Patient has capacity to sign consent for treatment) Chief Complaint (in patient's own words): "Dr. Brar, I was feeling not good, if I tell you I was not feeling good I mean it, I never felt this way before, I was feeling so down and depressed as well as dizzy, I needed to stay in the hospital" each and every time pt is saying that she never felt this way before. Patient's Reaction to Hospitalization: patient was admitted to psychiatric inpatient unit for evaluation and stabilization of disorganized, psychotic, depressive symptoms, please see emergency room visit for more detailed information. History of Present Illness and Precipitating Events: shortly patient is 42 years old -[place] female, long and debilitating history of schizophrenia vs schizoaffective, treatment resistant, multiple admissions to the psychiatric inpatient unit in the past, including to this hospital (last admission was 11/10/17), pt was d/c from [facility] Sep 16 2017, [facility], pt is on clozaril and Haldol Dec. pt presents to the emergency room expressing suicidal ideation and possible auditory hallucinations commanding pt to kill self and her cat pt was admitted for further evaluation and stabilization. patient is well known to this unit from multiple admissions to the psych unit, usually patient admits herself to the hospital every 2-3 weeks, at the same time patient has history of impulsive behavior, patient has history of suicidal attempts, patient was recently hospitalized in to the [facility] status post suicidal attempt on Clozaril, patient was admitted to ICU at [facility] in June 23 through June 25, status post overdose on Clozaril, status post suicidal attempt. Patient was then transferred to [facility] where she spent past 3 months patient was discharged from the [facility] September 16, 2017. Patient was seen at the treatment team meeting, fair ADLs, patient presented to be more disorganized than usual, patient had difficulties to find words and complained her sentences, patient has messy hair, patient had difficulties to stay focused and concentrate during the interview, patient reported that "I never felt that that before, I was feeling very down and depressed, I was feeling very hopeless, I called my mother and my mother advised me to come to the hospital". pt still delusional about (imaginary boyfriend). discussed with Nurse at PACT team, pt got a new kitten with the hope that it will prevent her from hospitalization. as per pt, her mother is taking care of that cat, as per ED pt said that she strangulated the cat, but pt denied. last admission pt tried to cut her writs. pt reported being compliant with her meds, "I always take my meds". 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 as per PACT report pt was on the following meds: patient is on Haldol decanoate 100 mg IM monthly due is December 29 Clozaril 350 mg by mouth at the nighttime for psychosis Cogentin 1 mg daily Iron pill 325 mg by mouth daily Folic acid 1 mg by mouth daily Haldol 10 mg by mouth daily for psychosis Januvia 50 mg by mouth daily Metformin 1000 mg by mouth twice a day Multivitamins 1 daily Lipitor 20 mg at the nighttime Depakote 500 mg twice a day for mood stabilization Patient is on Clozaril and blood need to be monitored weekly pt reported no side effects from meds, residual tremor on the right UE, not new , AIMS 0, no EPS. 12/11/17 07:15 12/11/17 07:15 Lab Results 12/11/17 12:20: Urine Color Yellow, Urine Appearance Clear, Urine pH 7.0, Ur Specific [place] 1.010, Urine Protein Negative, Urine Glucose (UA) Negative, Urine Ketones Negative, Urine Blood Negative, Urine Nitrate Negative, Urine Bilirubin Negative, Urine Urobilinogen 0.2, Ur Leukocyte Esterase Negative 12/11/17 11:44: POC Glucose (mg/dL) 166 H 12/11/17 07:45: POC Glucose (mg/dL) 140 H 12/11/17 07:15: Sodium 138, Potassium 4.2, Chloride 102, Carbon Dioxide 24, Anion Gap 16, BUN 9, Creatinine 0.4 L, Est GFR ( Amer) > 60, Est GFR (Non -Af Amer) > 60, Random Glucose 139 H, Calcium 8.6, Total Bilirubin 0.2, AST 17, ALT 17, Alkaline Phosphatase 71, Total Protein 7.1, Albumin 3.8, Globulin 3.3, Albumin/Globulin Ratio 1.1 12/11/17 07:15: WBC 12.9 H, RBC 4.10, Hgb 11.8 L, Hct 34.5 L, MCV 84.1, MCH 28.8 , MCHC 34.2, RDW 16.0 H, Plt Count 313, MPV 8.7 12/10/17 22:09: POC Glucose (mg/dL) 266 H 12/10/17 16:40: POC Glucose (mg/dL) 159 H 12/10/17 12:11: POC Glucose (mg/dL) 148 H 12/10/17 08:31: POC Glucose (mg/dL) 176 H 12/10/17 06:30: Valproic Acid 57 12/10/17 06:30: Hemoglobin A1c 8.0 H 12/10/17 06:30: Sodium 138, Potassium 4.4, Chloride 101, Carbon Dioxide 25, Anion Gap 16, BUN 13, Creatinine 0.4 L, Est GFR ( Amer) > 60, Est GFR ( Non-Af Amer) > 60, Random Glucose 161 H, Calcium 8.8, Total Bilirubin 0.3, AST 17, ALT 21, Alkaline Phosphatase 69, Total Protein 7.2, Albumin 3.8, Globulin 3.4, Albumin/Globulin Ratio 1.1 12/10/17 06:30: RPR Nonreactive 12/10/17 06:30: TSH 3rd Generation 1.95 12/10/17 06:30: WBC 12.8 H D, RBC 4.28, Hgb 12.0, Hct 35.9 L, MCV 83.9, MCH 28.0 , MCHC 33.4, RDW 16.3 H, Plt Count 310, MPV 8.6, Gran % 42.5 L, Lymph % (Auto) 47.5 H, [place] % (Auto) 8.7 H, Eos % (Auto) 0.9 L, Baso % (Auto) 0.4, Gran # 5.44 , Lymph # (Auto) 6.1 H, [place] # (Auto) 1.1 H, Eos # (Auto) 0.1, Baso # (Auto) 0.05 12/09/17 21:24: POC Glucose (mg/dL) 230 H 12/09/17 11:58: POC Glucose (mg/dL) 236 H 12/09/17 08:55: POC Glucose (mg/dL) 156 H 12/08/17 16:49: Urine Opiates Screen Negative, Urine Methadone Screen Negative, Ur Barbiturates Screen Negative, Ur Phencyclidine Scrn Negative, Ur Amphetamines Screen Negative, U Benzodiazepines Scrn Negative, U Oth Cocaine Metabols Negative, U Cannabinoids Screen Negative 12/08/17 16:49: Urine Color Yellow, Urine Appearance Clear, Urine pH 6.5, Ur Specific [place] 1.025, Urine Protein Trace H, Urine Glucose (UA) Negative, Urine Ketones 15 H, Urine Blood Negative, Urine Nitrate Negative, Urine Bilirubin Negative, Urine Urobilinogen 0.2, Ur Leukocyte Esterase Negative, Urine RBC 0 - 2, Urine WBC Negative, Ur Epithelial Cells 3 - 4, Urine Bacteria None, Hyaline Casts 0 - 2, Urine HCG, Qual Negative 12/08/17 15:02: Alcohol, Quantitative < 10 12/08/17 15:02: Salicylates < 1 L, Acetaminophen < 10.0 L 12/08/17 15:02: Sodium 138, Potassium 4.0, Chloride 98, Carbon Dioxide 25, Anion Gap 20, BUN 8, Creatinine 0.4 L, Est GFR ( Amer) > 60, Est GFR (Non -Af Amer) > 60, Random Glucose 177 H, Calcium 10.0, Total Bilirubin 0.3, AST 26 , ALT 21, Alkaline Phosphatase 83, Total Protein 8.4 H, Albumin 4.7, Globulin 3.7, Albumin/Globulin Ratio 1.2 12/08/17 15:02: WBC 9.8, RBC 4.47, Hgb 12.7, Hct 37.4, MCV 83.7, MCH 28.4, MCHC 34.0, RDW 16.3 H, Plt Count 336, MPV 9.1, Gran % 46.8 L, Lymph % (Auto) 44.2 H, [place] % (Auto) 7.7 H, Eos % (Auto) 0.8 L, Baso % (Auto) 0.5, Gran # 4.59, Lymph # (Auto) 4.3 H, [place] # (Auto) 0.8 H, Eos # (Auto) 0.1, Baso # (Auto) 0.05 Vital Signs Temp Pulse Pulse Resp BP Pulse Ox 12/11/17 08:00 119/85 12/11/17 06:49 97.8 F 79 18 119/85 12/10/17 16:17 100 H 120/85 12/10/17 08:53 132/78 12/10/17 06:37 97.2 F L 75 20 132/78 12/09/17 10:00 87 18 12/09/17 09:32 98.2 F 87 18 118/82 12/09/17 08:45 98.6 F 78 18 128/79 99 12/09/17 07:00 98.2 F 82 16 127/88 99 12/09/17 03:16 90 18 135/79 100 12/09/17 00:40 88 18 145/98 H 98 12/08/17 15:23 98.8 F 96 H 16 139/88 99 pt was seen by medical team. Current Medications: Active Medications Generic Name Dose Route Start Last Admin Trade Name Freq PRN Reason Stop Dose Admin Acetaminophen 650 mg 12/09/17 09:29 Tylenol 325mg Tab PO Q4 PRN Pain, moderate (4-7) Al Hydrox/Mg Hydrox/Simethicone 30 ml 12/09/17 09:29 Maalox Plus 30 Ml PO DAILY PRN Upset Stomach Amlodipine Besylate 10 mg 12/10/17 08:00 12/11/17 08:00 Norvasc PO 10 mg DAILY NITIN Administration Aspirin 81 mg 12/09/17 12:00 12/11/17 08:25 Aspirin Chewable PO 81 mg DAILY NITIN Administration Atorvastatin Calcium 20 mg 12/11/17 17:00 Lipitor PO DIN NITIN Benztropine Mesylate 1 mg 12/09/17 22:00 12/10/17 22:00 Cogentin PO 1 mg HS NITIN Administration Clozapine 350 mg 12/11/17 22:00 Clozaril PO HS NITIN Protocol Divalproex Sodium 500 mg 12/09/17 16:00 12/11/17 08:00 Jericho Menezes(*Bid*) PO 500 mg BID NITIN Administration Folic Acid 1 mg 12/09/17 11:00 12/11/17 08:24 Folic Acid PO 1 mg DAILY NITIN Administration Haloperidol 10 mg 12/09/17 22:00 12/10/17 22:01 Haldol PO 10 mg HS NITIN Administration Protocol Haloperidol Decanoate 100 mg 12/29/17 13:49 Haldol Decanoate--Long Acting IM 12/29/17 13:50 ONCE ONE Protocol Insulin Human Regular 0 units 12/09/17 16:30 12/11/17 12:30 Humulin R Med SC 1 unit ACHS NITIN Administration Protocol Magnesium Hydroxide 30 ml 12/09/17 09:29 Milk Of Magnesia PO DAILY PRN Constipation Metformin HCl 1,000 mg 12/09/17 16:00 12/11/17 08:24 Glucophage PO 1,000 mg BID NITIN Administration Multivitamins 1 tab 12/09/17 11:00 12/11/17 08:24 Thera Tab PO 1 tab 0800 NITIN Administration Sitagliptin Phosphate 50 mg 12/09/17 12:00 12/11/17 08:24 Januvia PO 50 mg DAILY NITIN Administration Past Psychiatric History - Past Psychiatric History Previous Treatment History: Inpatient Prior Professional Help: see HPI Prior Psychiatric Treatment: see HPI At what hospital: see HPI Duration: see HPI Nature of Treatment: see HPI Explanation of prior treatment: as per HPI History of Abuse: denied History of ETOH/Drug Use: denied using drugs, denied smoking, denied alcohol consumption History of Family Illness: unknown Pertinent Medical Hx (Current Medical&Sleep Prob, Allergies): Allergies Allergy/AdvReac Type Severity Reaction Status Date / Time No Known Allergies Allergy Verified 12/08/17 15:23 Aspirin [Ecotrin] 81 mg PO DAILY #7 tabec 11/21/17 Atorvastatin [Lipitor] 20 mg PO HS #7 tab 11/21/17 Benztropine [Cogentin] 1 mg PO HS #7 tab 11/21/17 Clozapine [Clozapine Odt] 200 mg PO HS #7 tab.rapdis 11/21/17 Clozapine [Fazaclo] 150 mg PO HS #7 odt 11/21/17 Divalproex [Depakote DR(*BID*)] 500 mg PO BID #30 tcp 11/21/17 Ferrous Sulfate [Feosol] 324 mg PO DAILY #7 ect 11/21/17 Folic Acid 1 mg PO DAILY #7 tab 11/21/17 Haloperidol Decanoate [Haldol Decanoate] 100 mg IM Q30D #1 amp 11/21/17 Haloperidol [Haldol] 10 mg PO HS #14 tab 11/21/17 MetFORMIN [glucoPHAGE] 1,000 mg PO BID #14 tab 11/21/17 Multivitamin Therapeutic Tab [Thera Tab] 1 tab PO 0800 #14 tab 11/21/17 SITagliptin [Januvia] 50 mg PO DAILY #7 tab 11/21/17 amLODIPine [Norvasc] 10 mg PO DAILY #7 tab 11/21/17 Review of Systems - Review of Systems Systems not reviewed;Unavailable: Acuity of Condition - EENT Eyes: As Per HPI Ears: As Per HPI Nose/Mouth/Throat: As Per HPI - Breasts Breasts: As Per HPI - Cardiovascular Cardiovascular: As Per HPI - Respiratory Respiratory: As Per HPI - Gastrointestinal Gastrointestinal: As Per HPI - Genitourinary Genitourinary: As Per HPI - Reproductive: Female Reproductive:Female: As Per HPI - Menstruation Menstruation: As Per HPI - Musculoskeletal Musculoskeletal: As Par HPI - Integumentary Integumentary: As Per HPI - Neurological Neurological: As Per HPI - Psychiatric Psychiatric: As Per HPI - Endocrine Endocrine: As Per HPI - Hematologic/Lymphatic Hematologic: As Per HPI Mental Status Examination - Personal Presentation Personal Presentation: Looks stated age - Affect Affect: Flat - Motor Activity Motor Activity: Psychomotor Retardation - Reliability in Providing Information Reliability in Providing Information: Poor, due to alteration in thoughts, Poor , due to altered mood, Poor, due to cognitve impairment - Speech Speech: Disorganized, Tangential - Mood Mood: Depressed ("I feel very depressed and dizzy") - Formal Thought Process Formal Thought Process: Hallucinations, Delusions, Paranoia, Loosening of associations - Obsessions/Compulsions Obsessions: None Compulsions: None - Cognitive Functions Orientation: Person Sensorium: Alert Attention/Concentration: Easily distracted Abstract Thinking: [place] Estimate of Intelligence: Below average Judgement: Intact, as evidence by: Insight regarding need for hospitalization - Risk Risk: Diminished functioning - Strength & Assets Inventory Strength & Assets Inventory: Family support, Cooperative, Other (no substance abuse history) - Limitations Limitations: Other (chronic mental illness) DSM 5 DX - DSM 5 DSM 5 Diagnosis: schizoaffective disorder bipolar type - Recommended/Plan of Treatment Treatment Recommendations and Plan of Treatment: milieu, structure, supportive therapy patient is on Haldol decanoate 100 mg IM monthly due is December 29 Clozaril 350 mg by mouth at the nighttime for psychosis Cogentin 1 mg daily Iron pill 325 mg by mouth daily Folic acid 1 mg by mouth daily Haldol 10 mg by mouth daily for psychosis Januvia 50 mg by mouth daily Metformin 1000 mg by mouth twice a day Multivitamins 1 daily Lipitor 20 mg at the nighttime Depakote 500 mg twice a day for mood stabilization Patient is on Clozaril and blood need to be monitored weekly There is no sign signs of granulocytosis Medical consult appreciated, see medical team note for more detailed info SW consultation for discharge plan and social issues Family involvement Follow up on labs Will monitor closely Pt was educated about risk/benefits and alternatives of medications, coping strategies (safety plan, suicide prevention), relapse prevention, importance of follow up with psychiatrist and therapist, stay away from drugs/alcohol/smoking Projected ELOS: 7days Prognosis: guarded Discharge Plan and Discharge Criteria: Pt will be not depressed or manic, will be more hopeful, will be not psychotic or anxious, will be not having thoughts of harming self or others, will be tolerating medications well, will not have major side effects, will be able to function, will not pose threat to self or others. - Smoking Cessation Smoking Cessation Initiated: No Reason for not providing: denied smoking
[2017-12-12 07:08] LABS: MEAN CELL VOLUME 84.3 fl (80.0-105.0); MEAN CORPUSCULAR HGB CONC 33.2 g/dl (31.0-37.0); MEAN PLATELET VOLUME 8.4 fl (7.0-11.0); RBC 4.28 10^6/uL (3.5-6.1); RED CELL DISTRIBUTION WIDTH 16.3 % (11.5-14.5); WHITE BLOOD COUNT 10.8 10^3/ul (4.5-11.0)
[2017-12-12 07:13] LABS: ALB/GLOB RATIO 1.1 (1.1-1.8); ALBUMIN 3.7 g/dL (3.0-4.8); ALT/SGPT 16 U/L (7-56); AST/SGOT 15 U/L (14-36); BLOOD UREA NITROGEN 9 mg/dL (7-21); CALCIUM 8.9 mg/dL (8.4-10.5); GFR AFRICAN-AMERICAN > 60; GFR NON-AFRICAN AMERICAN > 60
[2017-12-12] MEDS: Multivitamin Therapeutic Tab PO SCH (08:19)
[2017-12-12] MEDS: Divalproex 500 mg DR(BID formulation) PO SCH ×2 (08:20→16:50)
[2017-12-12] MEDS: Insulin Reg-MEDIUM-Coverage SC SCH ×4 (08:21→22:08)
--- NOTE | 2017-12-12 09:10 | PN ---
Copied To: Jason Contreras DO Attending MD: Jason Contreras DO DATE: 12/12/2017 SUBJECTIVE: I saw her sleeping in bed this morning, easily arousable. She is feeling well. No more issues. She wants to go home. She tells me she is on aspirin, Clozaril, Cogentin, Depakote, folic acid, Glucophage, Haldol, insulin, Januvia, Lipitor, Maalox, milk of magnesia, Norvasc, Thera Tab and Tylenol. PHYSICAL EXAMINATION: VITAL SIGNS: 97.5 temp, 73 pulse, 117/81 blood pressure, 18 respiratory rate. HEENT: Head is atraumatic, normocephalic. HEART: Regular rate. LUNGS: Clear to auscultation. ABDOMEN: Soft, obese, nontender. EXTREMITIES: No edema. LABORATORY DATA: She has a 10.8 white count, better; 12 hemoglobin; 36.1 hematocrit with 308 platelets. 139 sodium, potassium 4.2, BUN is 9, creatinine 0.4, GFR is greater than 60, sugar is 141, calcium is 8.9, total bili is 0.2, AST is 15, ALT is 16, alk phos 68, total protein 7. ASSESSMENT AND PLAN: Her labs are better. She tells me she is feeling better. We will see how Psychiatry wants to handle it on Gato who has been here numerous times, suicidal ideation and auditory hallucinations, schizophrenia, seizures, hypertension, diabetes. She had leukocytosis, which resolved. We will continue to follow. Jason Contreras DO
--- NOTE | 2017-12-12 16:15 | PCM.PYCHPN ---
Psychiatric Progress Note - Psychiatric Progress Note Patient seen today, length of contact: 30 minutes Patient Chief Complaint: "Dr. Brar, I think I'm doing much better, I want to be discharged as soon as possible" Problems Identified/Issues Discussed: Suicide/ homicide prevention, past psychiatric h/o, current psychiatric symptoms , medical problems, risk/benefits and alternatives of medications, medications compliance, coping strategies, substance abuse h/o, relapse prevention, importance of follow up with psychiatrist and therapist, discharge plan. Medical Problems: as per HPI newly diagnosed urinary tract infection,, discussed with Dr. Contreras, antibiotics will be started Diagnostic Results: 12/12/17 06:50 12/12/17 06:50 Lab Results 12/12/17 16:09: POC Glucose (mg/dL) 116 H 12/12/17 11:05: POC Glucose (mg/dL) 220 H 12/12/17 07:16: POC Glucose (mg/dL) 141 H 12/12/17 06:50: Sodium 139, Potassium 4.2, Chloride 102, Carbon Dioxide 26, Anion Gap 14, BUN 9, Creatinine 0.4 L, Est GFR ( Amer) > 60, Est GFR (Non -Af Amer) > 60, Random Glucose 131 H, Calcium 8.9, Total Bilirubin 0.2, AST 15, ALT 16, Alkaline Phosphatase 68, Total Protein 7.0, Albumin 3.7, Globulin 3.3, Albumin/Globulin Ratio 1.1 12/12/17 06:50: WBC 10.8, RBC 4.28, Hgb 12.0, Hct 36.1, MCV 84.3, MCH 28.0, MCHC 33.2, RDW 16.3 H, Plt Count 308, MPV 8.4 12/11/17 21:12: POC Glucose (mg/dL) 180 H 12/11/17 16:05: POC Glucose (mg/dL) 91 12/11/17 12:20: Urine Color Yellow, Urine Appearance Clear, Urine pH 7.0, Ur Specific Acra 1.010, Urine Protein Negative, Urine Glucose (UA) Negative, Urine Ketones Negative, Urine Blood Negative, Urine Nitrate Negative, Urine Bilirubin Negative, Urine Urobilinogen 0.2, Ur Leukocyte Esterase Negative 12/11/17 11:44: POC Glucose (mg/dL) 166 H 12/11/17 07:45: POC Glucose (mg/dL) 140 H 12/11/17 07:15: Sodium 138, Potassium 4.2, Chloride 102, Carbon Dioxide 24, Anion Gap 16, BUN 9, Creatinine 0.4 L, Est GFR ( Amer) > 60, Est GFR (Non -Af Amer) > 60, Random Glucose 139 H, Calcium 8.6, Total Bilirubin 0.2, AST 17, ALT 17, Alkaline Phosphatase 71, Total Protein 7.1, Albumin 3.8, Globulin 3.3, Albumin/Globulin Ratio 1.1 12/11/17 07:15: WBC 12.9 H, RBC 4.10, Hgb 11.8 L, Hct 34.5 L, MCV 84.1, MCH 28.8 , MCHC 34.2, RDW 16.0 H, Plt Count 313, MPV 8.7 12/10/17 22:09: POC Glucose (mg/dL) 266 H 12/10/17 16:40: POC Glucose (mg/dL) 159 H 12/10/17 12:11: POC Glucose (mg/dL) 148 H 12/10/17 08:31: POC Glucose (mg/dL) 176 H 12/10/17 06:30: Valproic Acid 57 12/10/17 06:30: Hemoglobin A1c 8.0 H 12/10/17 06:30: Sodium 138, Potassium 4.4, Chloride 101, Carbon Dioxide 25, Anion Gap 16, BUN 13, Creatinine 0.4 L, Est GFR ( Amer) > 60, Est GFR ( Non-Af Amer) > 60, Random Glucose 161 H, Calcium 8.8, Total Bilirubin 0.3, AST 17, ALT 21, Alkaline Phosphatase 69, Total Protein 7.2, Albumin 3.8, Globulin 3.4, Albumin/Globulin Ratio 1.1 12/10/17 06:30: RPR Nonreactive 12/10/17 06:30: TSH 3rd Generation 1.95 12/10/17 06:30: WBC 12.8 H D, RBC 4.28, Hgb 12.0, Hct 35.9 L, MCV 83.9, MCH 28.0 , MCHC 33.4, RDW 16.3 H, Plt Count 310, MPV 8.6, Gran % 42.5 L, Lymph % (Auto) 47.5 H, [place] % (Auto) 8.7 H, Eos % (Auto) 0.9 L, Baso % (Auto) 0.4, Gran # 5.44 , Lymph # (Auto) 6.1 H, [place] # (Auto) 1.1 H, Eos # (Auto) 0.1, Baso # (Auto) 0.05 12/09/17 21:24: POC Glucose (mg/dL) 230 H 12/09/17 11:58: POC Glucose (mg/dL) 236 H 12/09/17 08:55: POC Glucose (mg/dL) 156 H 12/08/17 16:49: Urine Opiates Screen Negative, Urine Methadone Screen Negative, Ur Barbiturates Screen Negative, Ur Phencyclidine Scrn Negative, Ur Amphetamines Screen Negative, U Benzodiazepines Scrn Negative, U Oth Cocaine Metabols Negative, U Cannabinoids Screen Negative 12/08/17 16:49: Urine Color Yellow, Urine Appearance Clear, Urine pH 6.5, Ur Specific Acra 1.025, Urine Protein Trace H, Urine Glucose (UA) Negative, Urine Ketones 15 H, Urine Blood Negative, Urine Nitrate Negative, Urine Bilirubin Negative, Urine Urobilinogen 0.2, Ur Leukocyte Esterase Negative, Urine RBC 0 - 2, Urine WBC Negative, Ur Epithelial Cells 3 - 4, Urine Bacteria None, Hyaline Casts 0 - 2, Urine HCG, Qual Negative 12/08/17 15:02: Alcohol, Quantitative < 10 12/08/17 15:02: Salicylates < 1 L, Acetaminophen < 10.0 L 12/08/17 15:02: Sodium 138, Potassium 4.0, Chloride 98, Carbon Dioxide 25, Anion Gap 20, BUN 8, Creatinine 0.4 L, Est GFR ( Amer) > 60, Est GFR (Non -Af Amer) > 60, Random Glucose 177 H, Calcium 10.0, Total Bilirubin 0.3, AST 26 , ALT 21, Alkaline Phosphatase 83, Total Protein 8.4 H, Albumin 4.7, Globulin 3.7, Albumin/Globulin Ratio 1.2 12/08/17 15:02: WBC 9.8, RBC 4.47, Hgb 12.7, Hct 37.4, MCV 83.7, MCH 28.4, MCHC 34.0, RDW 16.3 H, Plt Count 336, MPV 9.1, Gran % 46.8 L, Lymph % (Auto) 44.2 H, [place] % (Auto) 7.7 H, Eos % (Auto) 0.8 L, Baso % (Auto) 0.5, Gran # 4.59, Lymph # (Auto) 4.3 H, [place] # (Auto) 0.8 H, Eos # (Auto) 0.1, Baso # (Auto) 0.05 Vital Signs Temp Pulse Pulse Resp BP Pulse Ox 12/12/17 08:19 117/81 12/12/17 06:46 97.5 F L 73 18 117/81 12/11/17 16:30 86 116/81 12/11/17 08:00 119/85 12/11/17 06:49 97.8 F 79 18 119/85 12/10/17 16:17 100 H 120/85 12/10/17 08:53 132/78 12/10/17 06:37 97.2 F L 75 20 132/78 12/09/17 10:00 87 18 12/09/17 09:32 98.2 F 87 18 118/82 12/09/17 08:45 98.6 F 78 18 128/79 99 12/09/17 07:00 98.2 F 82 16 127/88 99 12/09/17 03:16 90 18 135/79 100 12/09/17 00:40 88 18 145/98 H 98 12/08/17 15:23 98.8 F 96 H 16 139/88 99 Microbiology 12/11/17 12:20 Urine Urine Culture - Final Gram Positive Cocci DSM 5 Symptoms Update: shortly patient is 42 years old -[place] female, long and debilitating history of schizophrenia vs schizoaffective, treatment resistant, multiple admissions to the psychiatric inpatient unit in the past, including to this hospital (last admission was 11/10/17), pt was d/c from [facility] Sep 16 2017, currently is followed by [facility] PACT team, pt is on clozaril and Haldol Dec. pt presents to the emergency room expressing suicidal ideation and possible auditory hallucinations commanding pt to kill self and her cat pt was admitted for further evaluation and stabilization. patient was seen today at the [facility], personal hygiene is improving, pt is very superficial, saying "I am ready to go, I am worried about my cat", pt said that "I made a mistake, I forgot to call my PACT team, I came straight to the hospital, my mother said that I need to go directly to the hospital". pt still delusional about (imaginary boyfriend). Gran# submitted to Clozaril [facility]. discussed with Nurse at PACT team, will visit pt tomorrow. pt reported being compliant with her meds, "I always take my meds". Patient tolerates medications well, no side effects observed or reported, aims 0 , no EPS. Impression: schizoaffective bipolar type Medication Change: Yes Medical Record Reviewed: Yes Consults ordered or reviewed: patient was seen by Dr. Contreras Mental Status Examination - Cognitive Function Orientation: Person Memory: Intact Attention: Poor Concentration: Poor Association: Loose Fund of Knowledge: Poor - Mood Mood: Depressed ("I feel very depressed and dizzy") - Affect Affect: Flat - Formal Thought Process Formal Thought Process: Hallucinations, Delusions, Paranoia, Loosening of associations - Suicidal Ideation Suicidal Ideation: No - Homicidal Ideation Homicidal Ideation: No Goal/Treatment Plan - Goal/Treatment Plan Need for Continued Stay: Remain at risks for inpatient hospitalization, Severe depression anxiety, Discharge may exacerbated symptoms, Severe functional impairment Progress Toward Problem(s) and Goals/Treatment Plan: milieu, structure, supportive therapy patient is on Haldol decanoate 100 mg IM monthly due is December 29 Clozaril 350 mg by mouth at the nighttime for psychosis Cogentin 1 mg daily Iron pill 325 mg by mouth daily Folic acid 1 mg by mouth daily Haldol 10 mg by mouth daily for psychosis Januvia 50 mg by mouth daily Metformin 1000 mg by mouth twice a day Multivitamins 1 daily Lipitor 20 mg at the nighttime Depakote 500 mg twice a day for mood stabilization Patient is on Clozaril and blood need to be monitored weekly There is no sign signs of granulocytosis Medical consult appreciated, see medical team note for more detailed info SW consultation for discharge plan and social issues Family involvement Follow up on labs Will monitor closely Pt was educated about risk/benefits and alternatives of medications, coping strategies (safety plan, suicide prevention), relapse prevention, importance of follow up with psychiatrist and therapist, stay away from drugs/alcohol/smoking patient has urinary tract infection, antibiotics will be started Estimated Date of D/C: 12/15/17
[2017-12-12] MEDS: Tmp-Smz 800 mg-160 mg DS Tab PO SCH (21:11)
[2017-12-13 07:04] VITALS: RESP 20
[2017-12-13] MEDS: Tmp-Smz 800 mg-160 mg DS Tab PO SCH ×2 (08:26→15:19)
[2017-12-13] MEDS: Multivitamin Therapeutic Tab PO SCH (08:27)
[2017-12-13] MEDS: Divalproex 500 mg DR(BID formulation) PO SCH ×2 (08:27→15:19)
[2017-12-13] MEDS: Insulin Reg-MEDIUM-Coverage SC SCH ×4 (08:28→22:21)
--- NOTE | 2017-12-13 11:16 | PN ---
Copied To: Jason Contreras DO Attending MD: Jason Contreras DO DATE: 12/13/2017 SUBJECTIVE: I saw her resting comfortably in bed. She slept well. She is in good spirits. She is trying to eat. She feels well. MEDICATIONS: She is on aspirin; Bactrim for her urinary tract infection, I started yesterday; Clozaril; Cogentin; Depakote; folic acid; Glucophage; Haldol; insulin; Januvia; Lipitor; Maalox; milk of magnesia; Norvasc; Thera-Tabs and Tylenol. PHYSICAL EXAMINATION: VITAL SIGNS: She has a 97.9 temp, 79 pulse, 115/83 blood pressure, 20 respiratory rate. HEENT: Head is atraumatic, normocephalic. Throat is moist. NECK: Supple. HEART: Regular rate. LUNGS: Clear to auscultation. ABDOMEN: Soft, obese, nontender. Positive bowel sounds. EXTREMITIES: No edema. LABORATORY DATA: She has a 10.8 white count, 12 hemoglobin, 36.1 hematocrit with 308 platelets. 139 sodium, potassium 4.2, BUN is 9, creatinine 0.4, GFR is greater than 60. Last blood sugar was 209, it was 116 before that. Calcium is 8.9, total bili is 0.2, AST is 15, ALT is 16, alk phos 68, total protein 7, albumin 3.7. Urine was negative for bacteria on 12/08/2017, but she has a microbiology of gram-positive cocci on urine culture. I am waiting for sensitivity to come back. It was also less than 10,000 species. ASSESSMENT AND PLAN: I put her on Bactrim, hopefully that will help her. We will continue with aggressive treatment and care. I will redo another UA C and S and I do think she is starting to improve as per Psychiatry. Jason Contreras DO
--- NOTE | 2017-12-13 12:45 | PCM.PYCHPN ---
Psychiatric Progress Note - Psychiatric Progress Note Patient seen today, length of contact: 30 minutes Patient Chief Complaint: "Dr. Brar, I think I'm doing much better, I want to be discharged as soon as possible" Problems Identified/Issues Discussed: Suicide/ homicide prevention, past psychiatric h/o, current psychiatric symptoms , medical problems, risk/benefits and alternatives of medications, medications compliance, coping strategies, substance abuse h/o, relapse prevention, importance of follow up with psychiatrist and therapist, discharge plan. Medical Problems: as per HPI newly diagnosed urinary tract infection,, discussed with Dr. Contreras, antibiotics will be started Diagnostic Results: 12/12/17 06:50 12/12/17 06:50 Lab Results 12/12/17 16:09: POC Glucose (mg/dL) 116 H 12/12/17 11:05: POC Glucose (mg/dL) 220 H 12/12/17 07:16: POC Glucose (mg/dL) 141 H 12/12/17 06:50: Sodium 139, Potassium 4.2, Chloride 102, Carbon Dioxide 26, Anion Gap 14, BUN 9, Creatinine 0.4 L, Est GFR ( Amer) > 60, Est GFR (Non -Af Amer) > 60, Random Glucose 131 H, Calcium 8.9, Total Bilirubin 0.2, AST 15, ALT 16, Alkaline Phosphatase 68, Total Protein 7.0, Albumin 3.7, Globulin 3.3, Albumin/Globulin Ratio 1.1 12/12/17 06:50: WBC 10.8, RBC 4.28, Hgb 12.0, Hct 36.1, MCV 84.3, MCH 28.0, MCHC 33.2, RDW 16.3 H, Plt Count 308, MPV 8.4 12/11/17 21:12: POC Glucose (mg/dL) 180 H 12/11/17 16:05: POC Glucose (mg/dL) 91 12/11/17 12:20: Urine Color Yellow, Urine Appearance Clear, Urine pH 7.0, Ur Specific [place] 1.010, Urine Protein Negative, Urine Glucose (UA) Negative, Urine Ketones Negative, Urine Blood Negative, Urine Nitrate Negative, Urine Bilirubin Negative, Urine Urobilinogen 0.2, Ur Leukocyte Esterase Negative 12/11/17 11:44: POC Glucose (mg/dL) 166 H 12/11/17 07:45: POC Glucose (mg/dL) 140 H 12/11/17 07:15: Sodium 138, Potassium 4.2, Chloride 102, Carbon Dioxide 24, Anion Gap 16, BUN 9, Creatinine 0.4 L, Est GFR ( Amer) > 60, Est GFR (Non -Af Amer) > 60, Random Glucose 139 H, Calcium 8.6, Total Bilirubin 0.2, AST 17, ALT 17, Alkaline Phosphatase 71, Total Protein 7.1, Albumin 3.8, Globulin 3.3, Albumin/Globulin Ratio 1.1 12/11/17 07:15: WBC 12.9 H, RBC 4.10, Hgb 11.8 L, Hct 34.5 L, MCV 84.1, MCH 28.8 , MCHC 34.2, RDW 16.0 H, Plt Count 313, MPV 8.7 12/10/17 22:09: POC Glucose (mg/dL) 266 H 12/10/17 16:40: POC Glucose (mg/dL) 159 H 12/10/17 12:11: POC Glucose (mg/dL) 148 H 12/10/17 08:31: POC Glucose (mg/dL) 176 H 12/10/17 06:30: Valproic Acid 57 12/10/17 06:30: Hemoglobin A1c 8.0 H 12/10/17 06:30: Sodium 138, Potassium 4.4, Chloride 101, Carbon Dioxide 25, Anion Gap 16, BUN 13, Creatinine 0.4 L, Est GFR ( Amer) > 60, Est GFR ( Non-Af Amer) > 60, Random Glucose 161 H, Calcium 8.8, Total Bilirubin 0.3, AST 17, ALT 21, Alkaline Phosphatase 69, Total Protein 7.2, Albumin 3.8, Globulin 3.4, Albumin/Globulin Ratio 1.1 12/10/17 06:30: RPR Nonreactive 12/10/17 06:30: TSH 3rd Generation 1.95 12/10/17 06:30: WBC 12.8 H D, RBC 4.28, Hgb 12.0, Hct 35.9 L, MCV 83.9, MCH 28.0 , MCHC 33.4, RDW 16.3 H, Plt Count 310, MPV 8.6, Gran % 42.5 L, Lymph % (Auto) 47.5 H, Power % (Auto) 8.7 H, Eos % (Auto) 0.9 L, Baso % (Auto) 0.4, Gran # 5.44 , Lymph # (Auto) 6.1 H, Power # (Auto) 1.1 H, Eos # (Auto) 0.1, Baso # (Auto) 0.05 12/09/17 21:24: POC Glucose (mg/dL) 230 H 12/09/17 11:58: POC Glucose (mg/dL) 236 H 12/09/17 08:55: POC Glucose (mg/dL) 156 H 12/08/17 16:49: Urine Opiates Screen Negative, Urine Methadone Screen Negative, Ur Barbiturates Screen Negative, Ur Phencyclidine Scrn Negative, Ur Amphetamines Screen Negative, U Benzodiazepines Scrn Negative, U Oth Cocaine Metabols Negative, U Cannabinoids Screen Negative 12/08/17 16:49: Urine Color Yellow, Urine Appearance Clear, Urine pH 6.5, Ur Specific [place] 1.025, Urine Protein Trace H, Urine Glucose (UA) Negative, Urine Ketones 15 H, Urine Blood Negative, Urine Nitrate Negative, Urine Bilirubin Negative, Urine Urobilinogen 0.2, Ur Leukocyte Esterase Negative, Urine RBC 0 - 2, Urine WBC Negative, Ur Epithelial Cells 3 - 4, Urine Bacteria None, Hyaline Casts 0 - 2, Urine HCG, Qual Negative 12/08/17 15:02: Alcohol, Quantitative < 10 12/08/17 15:02: Salicylates < 1 L, Acetaminophen < 10.0 L 12/08/17 15:02: Sodium 138, Potassium 4.0, Chloride 98, Carbon Dioxide 25, Anion Gap 20, BUN 8, Creatinine 0.4 L, Est GFR ( Amer) > 60, Est GFR (Non -Af Amer) > 60, Random Glucose 177 H, Calcium 10.0, Total Bilirubin 0.3, AST 26 , ALT 21, Alkaline Phosphatase 83, Total Protein 8.4 H, Albumin 4.7, Globulin 3.7, Albumin/Globulin Ratio 1.2 12/08/17 15:02: WBC 9.8, RBC 4.47, Hgb 12.7, Hct 37.4, MCV 83.7, MCH 28.4, MCHC 34.0, RDW 16.3 H, Plt Count 336, MPV 9.1, Gran % 46.8 L, Lymph % (Auto) 44.2 H, Power % (Auto) 7.7 H, Eos % (Auto) 0.8 L, Baso % (Auto) 0.5, Gran # 4.59, Lymph # (Auto) 4.3 H, Power # (Auto) 0.8 H, Eos # (Auto) 0.1, Baso # (Auto) 0.05 Vital Signs Temp Pulse Pulse Resp BP Pulse Ox 12/12/17 08:19 117/81 12/12/17 06:46 97.5 F L 73 18 117/81 12/11/17 16:30 86 116/81 12/11/17 08:00 119/85 12/11/17 06:49 97.8 F 79 18 119/85 12/10/17 16:17 100 H 120/85 12/10/17 08:53 132/78 12/10/17 06:37 97.2 F L 75 20 132/78 12/09/17 10:00 87 18 12/09/17 09:32 98.2 F 87 18 118/82 12/09/17 08:45 98.6 F 78 18 128/79 99 12/09/17 07:00 98.2 F 82 16 127/88 99 12/09/17 03:16 90 18 135/79 100 12/09/17 00:40 88 18 145/98 H 98 12/08/17 15:23 98.8 F 96 H 16 139/88 99 Microbiology 12/11/17 12:20 Urine Urine Culture - Final Gram Positive Cocci DSM 5 Symptoms Update: shortly patient is 42 years old -[place] female, long and debilitating history of schizophrenia vs schizoaffective, treatment resistant, multiple admissions to the psychiatric inpatient unit in the past, including to this hospital (last admission was 11/10/17), pt was d/c from [facility] Sep 16 2017, currently is followed by [facility] PACT team, pt is on clozaril and Haldol Dec. pt presents to the emergency room expressing suicidal ideation and possible auditory hallucinations commanding pt to kill self and her cat pt was admitted for further evaluation and stabilization. patient was seen today at the treatment team meeting room, pt superficially presented well, seems to be in good spirit. pt was visited by PACT team, Lisa PRICE, as per Lisa pt was seen daily in the community, but pt always finds the way to come to the hospital. as per PACT pt was relatively stable. pt was stressed because of the new cat in her home. discussed option of POA and guardianship for the future. pt does not want to go to the [facility]. pt still delusional about (imaginary boyfriend). Gran# submitted to Clozaril [facility] 12/12/17. pt reported being compliant with her meds, "I always take my meds". Patient tolerates medications well, no side effects observed or reported, aims 0 , no EPS. Impression: schizoaffective bipolar type Medication Change: No Medical Record Reviewed: Yes Mental Status Examination - Cognitive Function Orientation: Person Memory: Intact Attention: Poor Concentration: Poor Association: Loose Fund of Knowledge: Poor - Mood Mood: Depressed ("I feel very depressed and dizzy") - Affect Affect: Flat - Formal Thought Process Formal Thought Process: Hallucinations, Delusions, Paranoia, Loosening of associations - Suicidal Ideation Suicidal Ideation: No - Homicidal Ideation Homicidal Ideation: No Goal/Treatment Plan - Goal/Treatment Plan Need for Continued Stay: Remain at risks for inpatient hospitalization, Severe depression anxiety, Discharge may exacerbated symptoms, Severe functional impairment Progress Toward Problem(s) and Goals/Treatment Plan: milieu, structure, supportive therapy patient is on Haldol decanoate 100 mg IM monthly due is December 29 Clozaril 350 mg by mouth at the nighttime for psychosis Cogentin 1 mg daily Iron pill 325 mg by mouth daily Folic acid 1 mg by mouth daily Haldol 10 mg by mouth daily for psychosis Januvia 50 mg by mouth daily Metformin 1000 mg by mouth twice a day Multivitamins 1 daily Lipitor 20 mg at the nighttime Depakote 500 mg twice a day for mood stabilization Patient is on Clozaril and blood need to be monitored weekly There is no sign signs of granulocytosis Medical consult appreciated, see medical team note for more detailed info DEE consultation for discharge plan and social issues Family involvement Follow up on labs Will monitor closely Pt was educated about risk/benefits and alternatives of medications, coping strategies (safety plan, suicide prevention), relapse prevention, importance of follow up with psychiatrist and therapist, stay away from drugs/alcohol/smoking patient has urinary tract infection, antibiotics will be started Estimated Date of D/C: 12/15/17
[2017-12-13 21:56] LABS: URINE BILIRUBIN NEGATIVE (NEGATIVE); URINE BLOOD NEGATIVE (NEGATIVE); URINE GLUCOSE (UA) NEGATIVE (NEGATIVE); URINE LEUKOCYTE ESTERASE NEGATIVE Leu/uL (NEGATIVE); URINE PROTEIN NEGATIVE mg/dL (<30 mg/dL); URINE UROBILINOGEN 0.2 E.U./dL (<1 E.U./dL)
[2017-12-13 21:58] LABS: URINE APPEARANCE CLEAR (CLEAR); URINE COLOR LIGHT YELLOW (YELLOW)
[2017-12-14] MEDS: Tmp-Smz 800 mg-160 mg DS Tab PO SCH ×2 (08:12→15:45)
[2017-12-14] MEDS: Multivitamin Therapeutic Tab PO SCH (08:12)
[2017-12-14] MEDS: Divalproex 500 mg DR(BID formulation) PO SCH ×2 (08:12→15:45)
[2017-12-14] MEDS: Insulin Reg-MEDIUM-Coverage SC SCH ×4 (08:13→21:14)
--- NOTE | 2017-12-14 15:27 | PN ---
Copied To: Jason Contreras DO Attending MD: Jason Contreras DO DATE: 12/14/2017 SUBJECTIVE: She is resting comfortably in bed. She slept well last night. She is on antibiotics for UTI. She has suicidal ideation, auditory hallucinations, schizophrenia, hypertension, diabetes, and seizures. On aspirin, Bactrim, Clozaril, Cogentin, Depakote, folic acid, Glucophage, Haldol, insulin, Januvia, Lipitor, Maalox, [id number], Norvasc, Thera-Tabs, and Tylenol. She is comfortable in bed. No problems. She is feeling better. She tells me she wants to leave. PHYSICAL EXAMINATION: VITAL SIGNS: She has 98.1 temperature, 78 pulse, 109/64 blood pressure, 20 respiratory rate. HEENT: Head is atraumatic, normocephalic. HEART: Regular rate. LUNGS: Decreased breath sounds, but clear. ABDOMEN: Soft, obese, and nontender. EXTREMITIES: No edema. LABORATORY DATA: She has 10.8 white count, 12 hemoglobin, and 308 platelets which is good. Her last blood sugar is 128. Urine was better. She has a Gram-positive cocci and showed no sensitivity. I think she is getting better on the Bactrim. I believe she will be discharged tomorrow by Psychiatry. We will continue to follow. I encouraged her to take lots of fluids, take the medications, and I will see her tomorrow morning. Jason Contreras DO
--- NOTE | 2017-12-14 15:34 | PCM.PYCHPN ---
Psychiatric Progress Note - Psychiatric Progress Note Patient seen today, length of contact: 30 minutes Patient Chief Complaint: "Dr. Brar, I think I'm doing much better, I want to be discharged as soon as possible" Problems Identified/Issues Discussed: Suicide/ homicide prevention, past psychiatric h/o, current psychiatric symptoms , medical problems, risk/benefits and alternatives of medications, medications compliance, coping strategies, substance abuse h/o, relapse prevention, importance of follow up with psychiatrist and therapist, discharge plan. Medical Problems: as per HPI newly diagnosed urinary tract infection,, discussed with Dr. Contreras, antibiotics will be started Diagnostic Results: 12/12/17 06:50 12/12/17 06:50 Lab Results 12/12/17 16:09: POC Glucose (mg/dL) 116 H 12/12/17 11:05: POC Glucose (mg/dL) 220 H 12/12/17 07:16: POC Glucose (mg/dL) 141 H 12/12/17 06:50: Sodium 139, Potassium 4.2, Chloride 102, Carbon Dioxide 26, Anion Gap 14, BUN 9, Creatinine 0.4 L, Est GFR ( Amer) > 60, Est GFR (Non -Af Amer) > 60, Random Glucose 131 H, Calcium 8.9, Total Bilirubin 0.2, AST 15, ALT 16, Alkaline Phosphatase 68, Total Protein 7.0, Albumin 3.7, Globulin 3.3, Albumin/Globulin Ratio 1.1 12/12/17 06:50: WBC 10.8, RBC 4.28, Hgb 12.0, Hct 36.1, MCV 84.3, MCH 28.0, MCHC 33.2, RDW 16.3 H, Plt Count 308, MPV 8.4 12/11/17 21:12: POC Glucose (mg/dL) 180 H 12/11/17 16:05: POC Glucose (mg/dL) 91 12/11/17 12:20: Urine Color Yellow, Urine Appearance Clear, Urine pH 7.0, Ur Specific [place] 1.010, Urine Protein Negative, Urine Glucose (UA) Negative, Urine Ketones Negative, Urine Blood Negative, Urine Nitrate Negative, Urine Bilirubin Negative, Urine Urobilinogen 0.2, Ur Leukocyte Esterase Negative 12/11/17 11:44: POC Glucose (mg/dL) 166 H 12/11/17 07:45: POC Glucose (mg/dL) 140 H 12/11/17 07:15: Sodium 138, Potassium 4.2, Chloride 102, Carbon Dioxide 24, Anion Gap 16, BUN 9, Creatinine 0.4 L, Est GFR ( Amer) > 60, Est GFR (Non -Af Amer) > 60, Random Glucose 139 H, Calcium 8.6, Total Bilirubin 0.2, AST 17, ALT 17, Alkaline Phosphatase 71, Total Protein 7.1, Albumin 3.8, Globulin 3.3, Albumin/Globulin Ratio 1.1 12/11/17 07:15: WBC 12.9 H, RBC 4.10, Hgb 11.8 L, Hct 34.5 L, MCV 84.1, MCH 28.8 , MCHC 34.2, RDW 16.0 H, Plt Count 313, MPV 8.7 12/10/17 22:09: POC Glucose (mg/dL) 266 H 12/10/17 16:40: POC Glucose (mg/dL) 159 H 12/10/17 12:11: POC Glucose (mg/dL) 148 H 12/10/17 08:31: POC Glucose (mg/dL) 176 H 12/10/17 06:30: Valproic Acid 57 12/10/17 06:30: Hemoglobin A1c 8.0 H 12/10/17 06:30: Sodium 138, Potassium 4.4, Chloride 101, Carbon Dioxide 25, Anion Gap 16, BUN 13, Creatinine 0.4 L, Est GFR ( Amer) > 60, Est GFR ( Non-Af Amer) > 60, Random Glucose 161 H, Calcium 8.8, Total Bilirubin 0.3, AST 17, ALT 21, Alkaline Phosphatase 69, Total Protein 7.2, Albumin 3.8, Globulin 3.4, Albumin/Globulin Ratio 1.1 12/10/17 06:30: RPR Nonreactive 12/10/17 06:30: TSH 3rd Generation 1.95 12/10/17 06:30: WBC 12.8 H D, RBC 4.28, Hgb 12.0, Hct 35.9 L, MCV 83.9, MCH 28.0 , MCHC 33.4, RDW 16.3 H, Plt Count 310, MPV 8.6, Gran % 42.5 L, Lymph % (Auto) 47.5 H, [place] % (Auto) 8.7 H, Eos % (Auto) 0.9 L, Baso % (Auto) 0.4, Gran # 5.44 , Lymph # (Auto) 6.1 H, [place] # (Auto) 1.1 H, Eos # (Auto) 0.1, Baso # (Auto) 0.05 12/09/17 21:24: POC Glucose (mg/dL) 230 H 12/09/17 11:58: POC Glucose (mg/dL) 236 H 12/09/17 08:55: POC Glucose (mg/dL) 156 H 12/08/17 16:49: Urine Opiates Screen Negative, Urine Methadone Screen Negative, Ur Barbiturates Screen Negative, Ur Phencyclidine Scrn Negative, Ur Amphetamines Screen Negative, U Benzodiazepines Scrn Negative, U Oth Cocaine Metabols Negative, U Cannabinoids Screen Negative 12/08/17 16:49: Urine Color Yellow, Urine Appearance Clear, Urine pH 6.5, Ur Specific [place] 1.025, Urine Protein Trace H, Urine Glucose (UA) Negative, Urine Ketones 15 H, Urine Blood Negative, Urine Nitrate Negative, Urine Bilirubin Negative, Urine Urobilinogen 0.2, Ur Leukocyte Esterase Negative, Urine RBC 0 - 2, Urine WBC Negative, Ur Epithelial Cells 3 - 4, Urine Bacteria None, Hyaline Casts 0 - 2, Urine HCG, Qual Negative 12/08/17 15:02: Alcohol, Quantitative < 10 12/08/17 15:02: Salicylates < 1 L, Acetaminophen < 10.0 L 12/08/17 15:02: Sodium 138, Potassium 4.0, Chloride 98, Carbon Dioxide 25, Anion Gap 20, BUN 8, Creatinine 0.4 L, Est GFR ( Amer) > 60, Est GFR (Non -Af Amer) > 60, Random Glucose 177 H, Calcium 10.0, Total Bilirubin 0.3, AST 26 , ALT 21, Alkaline Phosphatase 83, Total Protein 8.4 H, Albumin 4.7, Globulin 3.7, Albumin/Globulin Ratio 1.2 12/08/17 15:02: WBC 9.8, RBC 4.47, Hgb 12.7, Hct 37.4, MCV 83.7, MCH 28.4, MCHC 34.0, RDW 16.3 H, Plt Count 336, MPV 9.1, Gran % 46.8 L, Lymph % (Auto) 44.2 H, [place] % (Auto) 7.7 H, Eos % (Auto) 0.8 L, Baso % (Auto) 0.5, Gran # 4.59, Lymph # (Auto) 4.3 H, [place] # (Auto) 0.8 H, Eos # (Auto) 0.1, Baso # (Auto) 0.05 Vital Signs Temp Pulse Pulse Resp BP Pulse Ox 12/12/17 08:19 117/81 12/12/17 06:46 97.5 F L 73 18 117/81 12/11/17 16:30 86 116/81 12/11/17 08:00 119/85 12/11/17 06:49 97.8 F 79 18 119/85 12/10/17 16:17 100 H 120/85 12/10/17 08:53 132/78 12/10/17 06:37 97.2 F L 75 20 132/78 12/09/17 10:00 87 18 12/09/17 09:32 98.2 F 87 18 118/82 12/09/17 08:45 98.6 F 78 18 128/79 99 12/09/17 07:00 98.2 F 82 16 127/88 99 12/09/17 03:16 90 18 135/79 100 12/09/17 00:40 88 18 145/98 H 98 12/08/17 15:23 98.8 F 96 H 16 139/88 99 Microbiology 12/11/17 12:20 Urine Urine Culture - Final Gram Positive Cocci DSM 5 Symptoms Update: shortly patient is 42 years old -[place] female, long and debilitating history of schizophrenia vs schizoaffective, treatment resistant, multiple admissions to the psychiatric inpatient unit in the past, including to this hospital (last admission was 11/10/17), pt was d/c from [facility] Sep 16 2017, currently is followed by [facility] PA[facility] team, pt is on clozaril and Haldol Dec. pt presents to the emergency room expressing suicidal ideation and possible auditory hallucinations commanding pt to kill self and her cat pt was admitted for further evaluation and stabilization. patient was seen today in her room, pt superficially presented well, seems to be in good spirit. pt was visited by PACT team, Lisa PRICE, yesterday. pt is still disorganized, but calm, no meaningful conversation today. discussed option of POA and guardianship for the future. pt does not want to go to the residential. pt still delusional about (imaginary boyfriend). Gran# submitted to Cloz[facility]il [facility] 12/12/17. pt reported being compliant with her meds, "I always take my meds". Patient tolerates medications well, no side effects observed or reported, aims 0 , no EPS. Impression: schizoaffective bipolar type Medication Change: No Medical Record Reviewed: Yes Mental Status Examination - Cognitive Function Orientation: Person Memory: Intact Attention: Poor Concentration: Poor Association: Loose Fund of Knowledge: Poor - Mood Mood: Depressed ("I feel very depressed and dizzy") - Affect Affect: Flat - Formal Thought Process Formal Thought Process: Hallucinations, Delusions, Paranoia, Loosening of associations - Suicidal Ideation Suicidal Ideation: No - Homicidal Ideation Homicidal Ideation: No Goal/Treatment Plan - Goal/Treatment Plan Need for Continued Stay: Remain at risks for inpatient hospitalization, Severe depression anxiety, Discharge may exacerbated symptoms, Severe functional impairment Progress Toward Problem(s) and Goals/Treatment Plan: milieu, structure, supportive therapy patient is on Haldol decanoate 100 mg IM monthly due is December 29 Clozaril 350 mg by mouth at the nighttime for psychosis Cogentin 1 mg daily Iron pill 325 mg by mouth daily Folic acid 1 mg by mouth daily Haldol 10 mg by mouth daily for psychosis Januvia 50 mg by mouth daily Metformin 1000 mg by mouth twice a day Multivitamins 1 daily Lipitor 20 mg at the nighttime Depakote 500 mg twice a day for mood stabilization Patient is on Clozaril and blood need to be monitored weekly There is no sign signs of granulocytosis Medical consult appreciated, see medical team note for more detailed info DEE consultation for discharge plan and social issues Family involvement Follow up on labs Will monitor closely Pt was educated about risk/benefits and alternatives of medications, coping strategies (safety plan, suicide prevention), relapse prevention, importance of follow up with psychiatrist and therapist, stay away from drugs/alcohol/smoking patient has urinary tract infection, antibiotics will be started Estimated Date of D/C: 12/15/17
[2017-12-15] MEDS: Multivitamin Therapeutic Tab PO SCH (08:18)
[2017-12-15] MEDS: Divalproex 500 mg DR(BID formulation) PO SCH ×2 (08:18→16:26)
[2017-12-15] MEDS: Tmp-Smz 800 mg-160 mg DS Tab PO SCH ×2 (08:19→16:25)
[2017-12-15] MEDS: Insulin Reg-MEDIUM-Coverage SC SCH ×4 (08:19→21:05)
--- NOTE | 2017-12-15 08:50 | PN ---
Copied To: Jason Contreras DO Attending MD: Jason Contreras DO DATE: 12/15/2017 SUBJECTIVE: I saw Gato resting comfortably in bed. She slept well. She is feeling well. Good spirits. She tells me she is going home today. She is on aspirin, Bactrim, Clozaril, Cogentin, Depakote, folic acid, Glucophage, Haldol, insulin, Januvia, Lipitor, Maalox, milk of magnesia, Norvasc, Thera-Tabs and Tylenol. OBJECTIVE: VITAL SIGNS: Temperature 98, 81 pulse, 114/77 blood pressure, 20 respiratory rate. HEENT: Head is atraumatic, normocephalic. HEART: Regular rate. LUNGS: Clear to auscultation. ABDOMEN: Soft, nontender. Positive bowel sounds. EXTREMITIES: No edema. NEUROLOGIC: She is in good spirits. She tells me she is being discharged today. DATA: Last labs on 12/12/2017 and she did well. Her last blood sugar was 120. I am hoping that she goes home, takes the medication and improves and follow up as the outpatient and she was here for suicidal ideation, auditory hallucinations, schizophrenia, hypertension, diabetes, seizures and urinary tract infection. Jason Contreras DO
--- NOTE | 2017-12-15 15:14 | PCM.PYCHPN ---
Psychiatric Progress Note - Psychiatric Progress Note Patient seen today, length of contact: 30 minutes Patient Chief Complaint: "I am not ready to go to the [facility], give me the last chance, next time if I will come you could talk about it" Problems Identified/Issues Discussed: Suicide/ homicide prevention, past psychiatric h/o, current psychiatric symptoms , medical problems, risk/benefits and alternatives of medications, medications compliance, coping strategies, substance abuse h/o, relapse prevention, importance of follow up with psychiatrist and therapist, discharge plan. Medical Problems: as per HPI newly diagnosed urinary tract infection,, discussed with Dr. Contreras, antibiotics will be started Diagnostic Results: 12/12/17 06:50 12/12/17 06:50 Lab Results 12/12/17 16:09: POC Glucose (mg/dL) 116 H 12/12/17 11:05: POC Glucose (mg/dL) 220 H 12/12/17 07:16: POC Glucose (mg/dL) 141 H 12/12/17 06:50: Sodium 139, Potassium 4.2, Chloride 102, Carbon Dioxide 26, Anion Gap 14, BUN 9, Creatinine 0.4 L, Est GFR ( Amer) > 60, Est GFR (Non -Af Amer) > 60, Random Glucose 131 H, Calcium 8.9, Total Bilirubin 0.2, AST 15, ALT 16, Alkaline Phosphatase 68, Total Protein 7.0, Albumin 3.7, Globulin 3.3, Albumin/Globulin Ratio 1.1 12/12/17 06:50: WBC 10.8, RBC 4.28, Hgb 12.0, Hct 36.1, MCV 84.3, MCH 28.0, MCHC 33.2, RDW 16.3 H, Plt Count 308, MPV 8.4 12/11/17 21:12: POC Glucose (mg/dL) 180 H 12/11/17 16:05: POC Glucose (mg/dL) 91 12/11/17 12:20: Urine Color Yellow, Urine Appearance Clear, Urine pH 7.0, Ur Specific [place] 1.010, Urine Protein Negative, Urine Glucose (UA) Negative, Urine Ketones Negative, Urine Blood Negative, Urine Nitrate Negative, Urine Bilirubin Negative, Urine Urobilinogen 0.2, Ur Leukocyte Esterase Negative 12/11/17 11:44: POC Glucose (mg/dL) 166 H 12/11/17 07:45: POC Glucose (mg/dL) 140 H 12/11/17 07:15: Sodium 138, Potassium 4.2, Chloride 102, Carbon Dioxide 24, Anion Gap 16, BUN 9, Creatinine 0.4 L, Est GFR ( Amer) > 60, Est GFR (Non -Af Amer) > 60, Random Glucose 139 H, Calcium 8.6, Total Bilirubin 0.2, AST 17, ALT 17, Alkaline Phosphatase 71, Total Protein 7.1, Albumin 3.8, Globulin 3.3, Albumin/Globulin Ratio 1.1 12/11/17 07:15: WBC 12.9 H, RBC 4.10, Hgb 11.8 L, Hct 34.5 L, MCV 84.1, MCH 28.8 , MCHC 34.2, RDW 16.0 H, Plt Count 313, MPV 8.7 12/10/17 22:09: POC Glucose (mg/dL) 266 H 12/10/17 16:40: POC Glucose (mg/dL) 159 H 12/10/17 12:11: POC Glucose (mg/dL) 148 H 12/10/17 08:31: POC Glucose (mg/dL) 176 H 12/10/17 06:30: Valproic Acid 57 12/10/17 06:30: Hemoglobin A1c 8.0 H 12/10/17 06:30: Sodium 138, Potassium 4.4, Chloride 101, Carbon Dioxide 25, Anion Gap 16, BUN 13, Creatinine 0.4 L, Est GFR ( Amer) > 60, Est GFR ( Non-Af Amer) > 60, Random Glucose 161 H, Calcium 8.8, Total Bilirubin 0.3, AST 17, ALT 21, Alkaline Phosphatase 69, Total Protein 7.2, Albumin 3.8, Globulin 3.4, Albumin/Globulin Ratio 1.1 12/10/17 06:30: RPR Nonreactive 12/10/17 06:30: TSH 3rd Generation 1.95 12/10/17 06:30: WBC 12.8 H D, RBC 4.28, Hgb 12.0, Hct 35.9 L, MCV 83.9, MCH 28.0 , MCHC 33.4, RDW 16.3 H, Plt Count 310, MPV 8.6, Gran % 42.5 L, Lymph % (Auto) 47.5 H, [place] % (Auto) 8.7 H, Eos % (Auto) 0.9 L, Baso % (Auto) 0.4, Gran # 5.44 , Lymph # (Auto) 6.1 H, [place] # (Auto) 1.1 H, Eos # (Auto) 0.1, Baso # (Auto) 0.05 12/09/17 21:24: POC Glucose (mg/dL) 230 H 12/09/17 11:58: POC Glucose (mg/dL) 236 H 12/09/17 08:55: POC Glucose (mg/dL) 156 H 12/08/17 16:49: Urine Opiates Screen Negative, Urine Methadone Screen Negative, Ur Barbiturates Screen Negative, Ur Phencyclidine Scrn Negative, Ur Amphetamines Screen Negative, U Benzodiazepines Scrn Negative, U Oth Cocaine Metabols Negative, U Cannabinoids Screen Negative 12/08/17 16:49: Urine Color Yellow, Urine Appearance Clear, Urine pH 6.5, Ur Specific [place] 1.025, Urine Protein Trace H, Urine Glucose (UA) Negative, Urine Ketones 15 H, Urine Blood Negative, Urine Nitrate Negative, Urine Bilirubin Negative, Urine Urobilinogen 0.2, Ur Leukocyte Esterase Negative, Urine RBC 0 - 2, Urine WBC Negative, Ur Epithelial Cells 3 - 4, Urine Bacteria None, Hyaline Casts 0 - 2, Urine HCG, Qual Negative 12/08/17 15:02: Alcohol, Quantitative < 10 12/08/17 15:02: Salicylates < 1 L, Acetaminophen < 10.0 L 12/08/17 15:02: Sodium 138, Potassium 4.0, Chloride 98, Carbon Dioxide 25, Anion Gap 20, BUN 8, Creatinine 0.4 L, Est GFR ( Amer) > 60, Est GFR (Non -Af Amer) > 60, Random Glucose 177 H, Calcium 10.0, Total Bilirubin 0.3, AST 26 , ALT 21, Alkaline Phosphatase 83, Total Protein 8.4 H, Albumin 4.7, Globulin 3.7, Albumin/Globulin Ratio 1.2 12/08/17 15:02: WBC 9.8, RBC 4.47, Hgb 12.7, Hct 37.4, MCV 83.7, MCH 28.4, MCHC 34.0, RDW 16.3 H, Plt Count 336, MPV 9.1, Gran % 46.8 L, Lymph % (Auto) 44.2 H, [place] % (Auto) 7.7 H, Eos % (Auto) 0.8 L, Baso % (Auto) 0.5, Gran # 4.59, Lymph # (Auto) 4.3 H, [place] # (Auto) 0.8 H, Eos # (Auto) 0.1, Baso # (Auto) 0.05 Vital Signs Temp Pulse Pulse Resp BP Pulse Ox 12/12/17 08:19 117/81 12/12/17 06:46 97.5 F L 73 18 117/81 12/11/17 16:30 86 116/81 12/11/17 08:00 119/85 12/11/17 06:49 97.8 F 79 18 119/85 12/10/17 16:17 100 H 120/85 12/10/17 08:53 132/78 12/10/17 06:37 97.2 F L 75 20 132/78 12/09/17 10:00 87 18 12/09/17 09:32 98.2 F 87 18 118/82 12/09/17 08:45 98.6 F 78 18 128/79 99 12/09/17 07:00 98.2 F 82 16 127/88 99 12/09/17 03:16 90 18 135/79 100 12/09/17 00:40 88 18 145/98 H 98 12/08/17 15:23 98.8 F 96 H 16 139/88 99 Microbiology 12/11/17 12:20 Urine Urine Culture - Final Gram Positive Cocci DSM 5 Symptoms Update: shortly patient is 42 years old -[place] female, long and debilitating history of schizophrenia vs schizoaffective, treatment resistant, multiple admissions to the psychiatric inpatient unit in the past, including to this hospital (last admission was 11/10/17), pt was d/c from [facility] Sep 16 2017, currently is followed by [facility] PACT team, pt is on clozaril and Haldol Dec. pt presents to the emergency room expressing suicidal ideation and possible auditory hallucinations commanding pt to kill self and her cat pt was admitted for further evaluation and stabilization. patient was seen today at the [facility] area, pt seems to be withdrawn, as per staff pt is self isolating, not participating in unit activities, pt sleeps most of the time. pt is still disorganized, but calm, this service writer discussed a custodial option with the pt pt said "I am not ready yet, give me the last chance, next time if I will come you could talk about it". discussed option of POA and guardianship for the future. pt does not want to go to the custodial. pt still delusional about (imaginary boyfriend), member of some [employer] organization. Gran# submitted to [facility] 12/12/17. pt reported being compliant with her meds, "I always take my meds". Patient tolerates medications well, no side effects observed or reported, aims 0 , no EPS. Impression: schizoaffective bipolar type Medication Change: Yes (clozaril increased) Medical Record Reviewed: Yes Mental Status Examination - Cognitive Function Orientation: Person Memory: Intact Attention: Poor Concentration: Poor Association: Loose Fund of Knowledge: Poor - Mood Mood: Depressed ("I feel very depressed and dizzy") - Affect Affect: Flat - Formal Thought Process Formal Thought Process: Hallucinations, Delusions, Paranoia, Loosening of associations - Suicidal Ideation Suicidal Ideation: No - Homicidal Ideation Homicidal Ideation: No Goal/Treatment Plan - Goal/Treatment Plan Need for Continued Stay: Remain at risks for inpatient hospitalization, Severe depression anxiety, Discharge may exacerbated symptoms, Severe functional impairment Progress Toward Problem(s) and Goals/Treatment Plan: milieu, structure, supportive therapy patient is on Haldol decanoate 100 mg IM monthly due is December 29 Clozaril 100mg am and 300 mg by mouth at the nighttime for psychosis Cogentin 1 mg daily Iron pill 325 mg by mouth daily Folic acid 1 mg by mouth daily Haldol 10 mg by mouth daily for psychosis Januvia 50 mg by mouth daily Metformin 1000 mg by mouth twice a day Multivitamins 1 daily Lipitor 20 mg at the nighttime Depakote 500 mg twice a day for mood stabilization Patient is on Clozaril and blood need to be monitored weekly There is no sign signs of granulocytosis Medical consult appreciated, see medical team note for more detailed info SW consultation for discharge plan and social issues Family involvement Follow up on labs Will monitor closely Pt was educated about risk/benefits and alternatives of medications, coping strategies (safety plan, suicide prevention), relapse prevention, importance of follow up with psychiatrist and therapist, stay away from drugs/alcohol/smoking patient has urinary tract infection, antibiotics will be started Estimated Date of D/C: 12/18/17
[2017-12-16] MEDS: Insulin Reg-MEDIUM-Coverage SC SCH ×4 (08:05→22:46)
[2017-12-16] MEDS: Tmp-Smz 800 mg-160 mg DS Tab PO SCH ×2 (09:49→17:20)
[2017-12-16] MEDS: Multivitamin Therapeutic Tab PO SCH (09:49)
[2017-12-16] MEDS: Divalproex 500 mg DR(BID formulation) PO SCH ×2 (09:50→17:20)
--- NOTE | 2017-12-16 09:50 | PCM.PYCHPN ---
Psychiatric Progress Note - Psychiatric Progress Note Patient seen today, length of contact: 30 minutes Patient Chief Complaint: "I am good, everything is all right" Problems Identified/Issues Discussed: I reviewed recent notes and met with patient at the nurse's station. Patient is oriented x3 and superficially cooperative. Her focus and attention are superficial. Eye contact is poor though she is responsive. Patient reports that she is feeling "good, everything is all right". Reports that she is sleeping well and denies recurrence of hallucinations or suicidal thoughts. Patient doesn 't appear to be actively responding to internal stimuli though she appears internally preoccupied, disorganized and oddly related. She is not overtly bizarre during my visit. Specific delusions were not elicited during this visit though unit progress notes indicate that patient is still delusional about relationship with "Mr. Alvarez". As usual, patient has been cooperative and polite on the unit. Visible in community areas. Appears flat and mildly apathetic. There were no major behavioral issues overnight. Diagnostic Results: Schizoaffective Disorder Medication Change: Yes (clozaril increased) Medical Record Reviewed: Yes Mental Status Examination - Cognitive Function Orientation: Person, Place, Situation (superficially) Memory: Intact Attention: Poor Concentration: Poor Association: Loose Fund of Knowledge: Poor - Mood Mood: Depressed (better) - Affect Affect: Flat - Speech Speech: Soft - Formal Thought Process Formal Thought Process: Hallucinations (denies currently), Delusions, Paranoia, Loosening of associations - Suicidal Ideation Suicidal Ideation: No - Homicidal Ideation Homicidal Ideation: No Goal/Treatment Plan - Goal/Treatment Plan Need for Continued Stay: Remain at risks for inpatient hospitalization, Severe depression anxiety, Discharge may exacerbated symptoms, Severe functional impairment Progress Toward Problem(s) and Goals/Treatment Plan: * c/w current treatment and plan * No new lab results thus far today * Vitals reviewed and noted below: Selected Entries 12/16/17 06:55 Temperature 97.4 F L Pulse Rate 82 Respiratory 20 Rate Blood Pressure 119/83 * Admission labs noted below: Laboratory Tests 12/08/17 12/08/17 12/08/17 15:02 15:02 15:02 WBC 9.8 RBC 4.47 Hgb 12.7 Hct 37.4 MCV 83.7 MCH 28.4 MCHC 34.0 RDW 16.3 H Plt Count 336 MPV 9.1 Gran % 46.8 L Lymph % (Auto) 44.2 H [place] % (Auto) 7.7 H Eos % (Auto) 0.8 L Baso % (Auto) 0.5 Gran # 4.59 Lymph # (Auto) 4.3 H [place] # (Auto) 0.8 H Eos # (Auto) 0.1 Baso # (Auto) 0.05 Sodium 138 Potassium 4.0 Chloride 98 Carbon Dioxide 25 Anion Gap 20 BUN 8 Creatinine 0.4 L Est GFR ( Amer) > 60 Est GFR (Non-Af Amer) > 60 POC Glucose (mg/dL) Random Glucose 177 H Calcium 10.0 Total Bilirubin 0.3 AST 26 ALT 21 Alkaline Phosphatase 83 Total Protein 8.4 H Albumin 4.7 Globulin 3.7 Albumin/Globulin Ratio 1.2 TSH 3rd Generation Urine Color Urine Appearance Urine pH Ur Specific [place] Urine Protein Urine Glucose (UA) Urine Ketones Urine Blood Urine Nitrate Urine Bilirubin Urine Urobilinogen Ur Leukocyte Esterase Urine RBC Urine WBC Ur Epithelial Cells Urine Bacteria Hyaline Casts Urine HCG, Qual Salicylates < 1 L Urine Opiates Screen Urine Methadone Screen Acetaminophen < 10.0 L Ur Barbiturates Screen Ur Phencyclidine Scrn Ur Amphetamines Screen U Benzodiazepines Scrn U Oth Cocaine Metabols U Cannabinoids Screen Alcohol, Quantitative 12/08/17 12/08/17 12/08/17 15:02 16:49 16:49 WBC RBC Hgb Hct MCV MCH MCHC RDW Plt Count MPV Gran % Lymph % (Auto) [place] % (Auto) Eos % (Auto) Baso % (Auto) Gran # Lymph # (Auto) [place] # (Auto) Eos # (Auto) Baso # (Auto) Sodium Potassium Chloride Carbon Dioxide Anion Gap BUN Creatinine Est GFR ( Amer) Est GFR (Non-Af Amer) POC Glucose (mg/dL) Random Glucose Calcium Total Bilirubin AST ALT Alkaline Phosphatase Total Protein Albumin Globulin Albumin/Globulin Ratio TSH 3rd Generation Urine Color Yellow Urine Appearance Clear Urine pH 6.5 Ur Specific [place] 1.025 Urine Protein Trace H Urine Glucose (UA) Negative Urine Ketones 15 H Urine Blood Negative Urine Nitrate Negative Urine Bilirubin Negative Urine Urobilinogen 0.2 Ur Leukocyte Esterase Negative Urine RBC 0 - 2 Urine WBC Negative Ur Epithelial Cells 3 - 4 Urine Bacteria None Hyaline Casts 0 - 2 Urine HCG, Qual Negative Salicylates Urine Opiates Screen Negative Urine Methadone Screen Negative Acetaminophen Ur Barbiturates Screen Negative Ur Phencyclidine Scrn Negative Ur Amphetamines Screen Negative U Benzodiazepines Scrn Negative U Oth Cocaine Metabols Negative U Cannabinoids Screen Negative Alcohol, Quantitative < 10 12/09/17 12/09/17 12/09/17 08:55 11:58 21:24 WBC RBC Hgb Hct MCV MCH MCHC RDW Plt Count MPV Gran % Lymph % (Auto) [place] % (Auto) Eos % (Auto) Baso % (Auto) Gran # Lymph # (Auto) [place] # (Auto) Eos # (Auto) Baso # (Auto) Sodium Potassium Chloride Carbon Dioxide Anion Gap BUN Creatinine Est GFR ( Amer) Est GFR (Non-Af Amer) POC Glucose (mg/dL) 156 H 236 H 230 H Random Glucose Calcium Total Bilirubin AST ALT Alkaline Phosphatase Total Protein Albumin Globulin Albumin/Globulin Ratio TSH 3rd Generation Urine Color Urine Appearance Urine pH Ur Specific [place] Urine Protein Urine Glucose (UA) Urine Ketones Urine Blood Urine Nitrate Urine Bilirubin Urine Urobilinogen Ur Leukocyte Esterase Urine RBC Urine WBC Ur Epithelial Cells Urine Bacteria Hyaline Casts Urine HCG, Qual Salicylates Urine Opiates Screen Urine Methadone Screen Acetaminophen Ur Barbiturates Screen Ur Phencyclidine Scrn Ur Amphetamines Screen U Benzodiazepines Scrn U Oth Cocaine Metabols U Cannabinoids Screen Alcohol, Quantitative 12/10/17 12/10/17 12/10/17 06:30 06:30 06:30 WBC 12.8 H D RBC 4.28 Hgb 12.0 Hct 35.9 L MCV 83.9 MCH 28.0 MCHC 33.4 RDW 16.3 H Plt Count 310 MPV 8.6 Gran % 42.5 L Lymph % (Auto) 47.5 H [place] % (Auto) 8.7 H Eos % (Auto) 0.9 L Baso % (Auto) 0.4 Gran # 5.44 Lymph # (Auto) 6.1 H [place] # (Auto) 1.1 H Eos # (Auto) 0.1 Baso # (Auto) 0.05 Sodium 138 Potassium 4.4 Chloride 101 Carbon Dioxide 25 Anion Gap 16 BUN 13 Creatinine 0.4 L Est GFR ( Amer) > 60 Est GFR (Non-Af Amer) > 60 POC Glucose (mg/dL) Random Glucose 161 H Calcium 8.8 Total Bilirubin 0.3 AST 17 ALT 21 Alkaline Phosphatase 69 Total Protein 7.2 Albumin 3.8 Globulin 3.4 Albumin/Globulin Ratio 1.1 TSH 3rd Generation 1.95 Urine Color Urine Appearance Urine pH Ur Specific [place] Urine Protein Urine Glucose (UA) Urine Ketones Urine Blood Urine Nitrate Urine Bilirubin Urine Urobilinogen Ur Leukocyte Esterase Urine RBC Urine WBC Ur Epithelial Cells Urine Bacteria Hyaline Casts Urine HCG, Qual Salicylates Urine Opiates Screen Urine Methadone Screen Acetaminophen Ur Barbiturates Screen Ur Phencyclidine Scrn Ur Amphetamines Screen U Benzodiazepines Scrn U Oth Cocaine Metabols U Cannabinoids Screen Alcohol, Quantitative 12/10/17 08:31 WBC RBC Hgb Hct MCV MCH MCHC RDW Plt Count MPV Gran % Lymph % (Auto) [place] % (Auto) Eos % (Auto) Baso % (Auto) Gran # Lymph # (Auto) [place] # (Auto) Eos # (Auto) Baso # (Auto) Sodium Potassium Chloride Carbon Dioxide Anion Gap BUN Creatinine Est GFR ( Amer) Est GFR (Non-Af Amer) POC Glucose (mg/dL) 176 H Random Glucose Calcium Total Bilirubin AST ALT Alkaline Phosphatase Total Protein Albumin Globulin Albumin/Globulin Ratio TSH 3rd Generation Urine Color Urine Appearance Urine pH Ur Specific [place] Urine Protein Urine Glucose (UA) Urine Ketones Urine Blood Urine Nitrate Urine Bilirubin Urine Urobilinogen Ur Leukocyte Esterase Urine RBC Urine WBC Ur Epithelial Cells Urine Bacteria Hyaline Casts Urine HCG, Qual Salicylates Urine Opiates Screen Urine Methadone Screen Acetaminophen Ur Barbiturates Screen Ur Phencyclidine Scrn Ur Amphetamines Screen U Benzodiazepines Scrn U Oth Cocaine Metabols U Cannabinoids Screen Alcohol, Quantitative Estimated Date of D/C: 12/18/17
--- NOTE | 2017-12-16 12:34 | PN ---
Copied To: Jason Contreras DO Attending MD: Jason Contreras DO DATE: 12/16/2017 SUBJECTIVE: She is resting comfortably in bed in the psychiatric floor. She is feeling well. She is doing well. She has taken her medications. Trying to participate. Tells me she is feeling well overall. MEDICATIONS: She is on aspirin, Bactrim for urinary tract infection, Clozaril, Cogentin, Depakote, folic acid, Glucophage, Haldol, insulin, Januvia, Lipitor, Maalox, milk of magnesia, Norvasc, Thera-Tabs and Tylenol. PHYSICAL EXAMINATION: VITAL SIGNS: 97.4 temp, 82 pulse, 119/83 blood pressure, 20 respiratory rate. HEENT: Head is atraumatic, normocephalic. HEART: Regular rate. LUNGS: Decreased breath sounds, but clear. ABDOMEN: Soft, obese, nontender. EXTREMITIES: No edema. LABORATORY DATA: She has a 10.8 white count, 12 hemoglobin, 308 platelets. On 12/12/2017, her chemistry was very good, last blood sugar was 136. She had a gram-positive cocci in the urine. She is on antibiotics for urinary tract infection. She has suicidal ideation, auditory hallucinations, schizophrenia, seizures, diabetes, hypertension. We will continue to follow her. Encourage her to participate, take her medications, drink her fluids. Jason Contreras DO
[2017-12-17 07:03] VITALS: TEMP 97.8
[2017-12-17] MEDS: Multivitamin Therapeutic Tab PO SCH (08:52)
[2017-12-17] MEDS: Divalproex 500 mg DR(BID formulation) PO SCH ×2 (08:52→16:02)
[2017-12-17] MEDS: Tmp-Smz 800 mg-160 mg DS Tab PO SCH ×2 (08:52→16:03)
[2017-12-17] MEDS: Insulin Reg-MEDIUM-Coverage SC SCH ×3 (08:53→16:10)
--- NOTE | 2017-12-17 09:34 | PCM.PYCHPN ---
Psychiatric Progress Note - Psychiatric Progress Note Patient seen today, length of contact: 30 minutes Patient Chief Complaint: "I am good, everything is all right" Problems Identified/Issues Discussed: I reviewed recent notes and met with patient at bedside today. Patient is oriented x3 and superficially cooperative. Her focus and attention are superficial. Eye contact is poor though she is responsive. Patient reports that she is feeling "good, everything is all right". Reports that she is sleeping well and denies recurrence of hallucinations or suicidal thoughts. Patient doesn 't appear to be actively responding to internal stimuli though she appears internally preoccupied, disorganized and oddly related. Affect is flat and mildly apathetic. She is not overtly bizarre during my visit. Specific delusions were not elicited during my weekend visits though unit progress notes indicate that patient has been delusional about relationship with "Mr. Alvarez ". As usual, patient has been cooperative and polite on the unit. Visible in community areas and participating in groups. There were no major behavioral issues overnight. Diagnostic Results: Schizoaffective Disorder Medication Change: Yes (clozaril increased) Medical Record Reviewed: Yes Mental Status Examination - Cognitive Function Orientation: Person, Place, Situation (superficially) Memory: Intact Attention: Poor Concentration: Poor Association: Loose Fund of Knowledge: Poor - Mood Mood: Depressed (better) - Affect Affect: Flat - Speech Speech: Soft - Formal Thought Process Formal Thought Process: Hallucinations (denies currently), Delusions, Paranoia, Loosening of associations - Suicidal Ideation Suicidal Ideation: No - Homicidal Ideation Homicidal Ideation: No Goal/Treatment Plan - Goal/Treatment Plan Need for Continued Stay: Remain at risks for inpatient hospitalization, Severe depression anxiety, Discharge may exacerbated symptoms, Severe functional impairment Progress Toward Problem(s) and Goals/Treatment Plan: * c/w current treatment and plan * No new weekend lab results * Vitals reviewed and noted below: Selected Entries 12/17/17 07:02 Temperature 97.8 F Pulse Rate 79 Respiratory 20 Rate Blood Pressure 116/82 * Admission labs noted below: Laboratory Tests 12/08/17 12/08/17 12/08/17 15:02 15:02 15:02 WBC 9.8 RBC 4.47 Hgb 12.7 Hct 37.4 MCV 83.7 MCH 28.4 MCHC 34.0 RDW 16.3 H Plt Count 336 MPV 9.1 Gran % 46.8 L Lymph % (Auto) 44.2 H [place] % (Auto) 7.7 H Eos % (Auto) 0.8 L Baso % (Auto) 0.5 Gran # 4.59 Lymph # (Auto) 4.3 H [place] # (Auto) 0.8 H Eos # (Auto) 0.1 Baso # (Auto) 0.05 Sodium 138 Potassium 4.0 Chloride 98 Carbon Dioxide 25 Anion Gap 20 BUN 8 Creatinine 0.4 L Est GFR ( Amer) > 60 Est GFR (Non-Af Amer) > 60 POC Glucose (mg/dL) Random Glucose 177 H Calcium 10.0 Total Bilirubin 0.3 AST 26 ALT 21 Alkaline Phosphatase 83 Total Protein 8.4 H Albumin 4.7 Globulin 3.7 Albumin/Globulin Ratio 1.2 TSH 3rd Generation Urine Color Urine Appearance Urine pH Ur Specific [place] Urine Protein Urine Glucose (UA) Urine Ketones Urine Blood Urine Nitrate Urine Bilirubin Urine Urobilinogen Ur Leukocyte Esterase Urine RBC Urine WBC Ur Epithelial Cells Urine Bacteria Hyaline Casts Urine HCG, Qual Salicylates < 1 L Urine Opiates Screen Urine Methadone Screen Acetaminophen < 10.0 L Ur Barbiturates Screen Ur Phencyclidine Scrn Ur Amphetamines Screen U Benzodiazepines Scrn U Oth Cocaine Metabols U Cannabinoids Screen Alcohol, Quantitative 12/08/17 12/08/17 12/08/17 15:02 16:49 16:49 WBC RBC Hgb Hct MCV MCH MCHC RDW Plt Count MPV Gran % Lymph % (Auto) [place] % (Auto) Eos % (Auto) Baso % (Auto) Gran # Lymph # (Auto) [place] # (Auto) Eos # (Auto) Baso # (Auto) Sodium Potassium Chloride Carbon Dioxide Anion Gap BUN Creatinine Est GFR ( Amer) Est GFR (Non-Af Amer) POC Glucose (mg/dL) Random Glucose Calcium Total Bilirubin AST ALT Alkaline Phosphatase Total Protein Albumin Globulin Albumin/Globulin Ratio TSH 3rd Generation Urine Color Yellow Urine Appearance Clear Urine pH 6.5 Ur Specific [place] 1.025 Urine Protein Trace H Urine Glucose (UA) Negative Urine Ketones 15 H Urine Blood Negative Urine Nitrate Negative Urine Bilirubin Negative Urine Urobilinogen 0.2 Ur Leukocyte Esterase Negative Urine RBC 0 - 2 Urine WBC Negative Ur Epithelial Cells 3 - 4 Urine Bacteria None Hyaline Casts 0 - 2 Urine HCG, Qual Negative Salicylates Urine Opiates Screen Negative Urine Methadone Screen Negative Acetaminophen Ur Barbiturates Screen Negative Ur Phencyclidine Scrn Negative Ur Amphetamines Screen Negative U Benzodiazepines Scrn Negative U Oth Cocaine Metabols Negative U Cannabinoids Screen Negative Alcohol, Quantitative < 10 12/09/17 12/09/17 12/09/17 08:55 11:58 21:24 WBC RBC Hgb Hct MCV MCH MCHC RDW Plt Count MPV Gran % Lymph % (Auto) [place] % (Auto) Eos % (Auto) Baso % (Auto) Gran # Lymph # (Auto) [place] # (Auto) Eos # (Auto) Baso # (Auto) Sodium Potassium Chloride Carbon Dioxide Anion Gap BUN Creatinine Est GFR ( Amer) Est GFR (Non-Af Amer) POC Glucose (mg/dL) 156 H 236 H 230 H Random Glucose Calcium Total Bilirubin AST ALT Alkaline Phosphatase Total Protein Albumin Globulin Albumin/Globulin Ratio TSH 3rd Generation Urine Color Urine Appearance Urine pH Ur Specific [place] Urine Protein Urine Glucose (UA) Urine Ketones Urine Blood Urine Nitrate Urine Bilirubin Urine Urobilinogen Ur Leukocyte Esterase Urine RBC Urine WBC Ur Epithelial Cells Urine Bacteria Hyaline Casts Urine HCG, Qual Salicylates Urine Opiates Screen Urine Methadone Screen Acetaminophen Ur Barbiturates Screen Ur Phencyclidine Scrn Ur Amphetamines Screen U Benzodiazepines Scrn U Oth Cocaine Metabols U Cannabinoids Screen Alcohol, Quantitative 12/10/17 12/10/17 12/10/17 06:30 06:30 06:30 WBC 12.8 H D RBC 4.28 Hgb 12.0 Hct 35.9 L MCV 83.9 MCH 28.0 MCHC 33.4 RDW 16.3 H Plt Count 310 MPV 8.6 Gran % 42.5 L Lymph % (Auto) 47.5 H [place] % (Auto) 8.7 H Eos % (Auto) 0.9 L Baso % (Auto) 0.4 Gran # 5.44 Lymph # (Auto) 6.1 H [place] # (Auto) 1.1 H Eos # (Auto) 0.1 Baso # (Auto) 0.05 Sodium 138 Potassium 4.4 Chloride 101 Carbon Dioxide 25 Anion Gap 16 BUN 13 Creatinine 0.4 L Est GFR ( Amer) > 60 Est GFR (Non-Af Amer) > 60 POC Glucose (mg/dL) Random Glucose 161 H Calcium 8.8 Total Bilirubin 0.3 AST 17 ALT 21 Alkaline Phosphatase 69 Total Protein 7.2 Albumin 3.8 Globulin 3.4 Albumin/Globulin Ratio 1.1 TSH 3rd Generation 1.95 Urine Color Urine Appearance Urine pH Ur Specific [place] Urine Protein Urine Glucose (UA) Urine Ketones Urine Blood Urine Nitrate Urine Bilirubin Urine Urobilinogen Ur Leukocyte Esterase Urine RBC Urine WBC Ur Epithelial Cells Urine Bacteria Hyaline Casts Urine HCG, Qual Salicylates Urine Opiates Screen Urine Methadone Screen Acetaminophen Ur Barbiturates Screen Ur Phencyclidine Scrn Ur Amphetamines Screen U Benzodiazepines Scrn U Oth Cocaine Metabols U Cannabinoids Screen Alcohol, Quantitative 12/10/17 08:31 WBC RBC Hgb Hct MCV MCH MCHC RDW Plt Count MPV Gran % Lymph % (Auto) [place] % (Auto) Eos % (Auto) Baso % (Auto) Gran # Lymph # (Auto) [place] # (Auto) Eos # (Auto) Baso # (Auto) Sodium Potassium Chloride Carbon Dioxide Anion Gap BUN Creatinine Est GFR ( Amer) Est GFR (Non-Af Amer) POC Glucose (mg/dL) 176 H Random Glucose Calcium Total Bilirubin AST ALT Alkaline Phosphatase Total Protein Albumin Globulin Albumin/Globulin Ratio TSH 3rd Generation Urine Color Urine Appearance Urine pH Ur Specific [place] Urine Protein Urine Glucose (UA) Urine Ketones Urine Blood Urine Nitrate Urine Bilirubin Urine Urobilinogen Ur Leukocyte Esterase Urine RBC Urine WBC Ur Epithelial Cells Urine Bacteria Hyaline Casts Urine HCG, Qual Salicylates Urine Opiates Screen Urine Methadone Screen Acetaminophen Ur Barbiturates Screen Ur Phencyclidine Scrn Ur Amphetamines Screen U Benzodiazepines Scrn U Oth Cocaine Metabols U Cannabinoids Screen Alcohol, Quantitative Estimated Date of D/C: 12/18/17
--- NOTE | 2017-12-17 15:41 | PN ---
Copied To: Jason Contreras DO Attending MD: Jason Contreras DO DATE: 12/17/2017 SUBJECTIVE: I saw her resting comfortably in bed. She tells me she is feeling better, doing well. She understands she is being discharged on Monday, that is tomorrow. She is happy about that. She states this daughter left her. MEDICATIONS: She is on aspirin, Bactroban, Clozaril, Cogentin, Depakote, folic acid, Glucotrol, Haldol, Januvia, Lipitor, Maalox, milk of magnesia, Norvasc, Thera-Tabs and Tylenol. She is here for multiple reasons, UTI, suicidal ideation, auditory hallucinations, schizophrenia, hypertension, diabetes and seizures. She will continue with Bactrim until she is discharged and she will not need it anymore. PHYSICAL EXAMINATION: VITAL SIGNS: She has a 97.8 temperature, 79 pulse, 116/82 blood pressure, 20 respiratory rate. HEENT: Head is atraumatic, normocephalic. HEART: Regular rate. LUNGS: Clear to auscultation. ABDOMEN: Soft, obese, nontender. EXTREMITIES: No edema. LABORATORY DATA: She had blood tests done on 12/12/2017, she did well. Her last blood sugar was 154. ASSESSMENT AND PLAN: I encouraged her to continue doing what she is doing, improving, and hopefully she will continue the same when she is discharged tomorrow. We will follow. Jason Contreras DO
[2017-12-17 16:39] VITALS: PULSE 76
[2017-12-18 07:02] VITALS: BP 114/80
[2017-12-18] MEDS: Insulin Reg-MEDIUM-Coverage SC SCH ×2 (08:06→12:00)
[2017-12-18] MEDS: Divalproex 500 mg DR(BID formulation) PO SCH (08:54)
[2017-12-18] MEDS: Tmp-Smz 800 mg-160 mg DS Tab PO SCH (08:54)
[2017-12-18] MEDS: Multivitamin Therapeutic Tab PO SCH (08:54)
--- NOTE | 2017-12-18 08:54 | PN ---
Copied To: Jason Contreras DO Attending MD: Jason Contreras DO DATE: 12/18/2017 SUBJECTIVE: I saw Gato resting comfortably in bed. She slept well. She tells me she is being discharged today. I believe that it is correct. I will see what Psychiatry wants to do, but in the meantime, I think she is improved. MEDICATIONS: She is currently on aspirin; Bactrim, which we can stop if she goes home today; Clozaril; Cogentin; Depakote; folic acid; Glucophage; Haldol; Januvia; Lipitor; Maalox; milk of magnesia; Norvasc; Thera-Tab and Tylenol. PHYSICAL EXAMINATION: VITAL SIGNS: She has a 97.8 temp, 76 pulse, 114/80 blood pressure, 20 respiratory rate. HEENT: Atraumatic, normocephalic. HEART: Regular rate. LUNGS: Decreased breath sounds, but clear. ABDOMEN: Soft, obese, nontender. EXTREMITIES: No edema. ASSESSMENT AND PLAN: She is being seen by Psychiatry. For the most part, she is improved. She was here with urinary tract infection, suicidal ideations, auditory hallucinations, schizophrenia, hypertension, diabetes and seizures. I think, she is improved some and when Psychiatry deems she is ready to be discharged, we will discharge her. We will follow up. Jason Contreras DO
[2017-12-18 12:47] LABS: BASO # 0.05 K/mm3 (0.0-2.0); BASO % 0.5 % (0.0-3.0); EOS # 0.1 (0.0-0.7); EOS % 0.8 % (1.5-5.0); GRAN # 5.51 (1.4-6.5); GRAN % 50.8 % (50.0-68.0); HEMOGLOBIN 11.8 g/dL (12.0-16.0); LYMPH # 4.2 (1.2-3.4); LYMPH % 39.1 % (22.0-35.0); MEAN CELL VOLUME 83.8 fl (80.0-105.0); MEAN CORPUSCULAR HEMOGLOBIN 28.5 pg (25.0-35.0); MEAN PLATELET VOLUME 8.5 fl (7.0-11.0); MONO % 8.8 % (1.0-6.0); RBC 4.14 10^6/uL (3.5-6.1); RED CELL DISTRIBUTION WIDTH 15.8 % (11.5-14.5); WHITE BLOOD COUNT 10.8 10^3/ul (4.5-11.0)
--- NOTE | 2017-12-18 16:58 | PCM.PYCHDC ---
Mental Status Examination - Mental Status Examination Orientation: Person, Place, Situation, Time Memory: Impaired (chronic) Mood: Neutral Affect: Broad (and mood congruent) Speech: Soft Attention: WNL Concentration: WNL Association: Loose (chronic) Fund of Knowledge: Poor Formal Thought Process: Delusions, Other (disorganized, as baseline) Description of patient's judgement and insight: improved, but still remains to be limited Psychotic Thoughts and Behaviors: Pt denied v/a/t hallucinations, denied paranoid ideations, patient has chronic catatonic delusions, disorganized thoughts, at present moment patient seems to be at her baseline. Suicidal Ideation: No Current Homicidal Ideation?: No Plan: pt adamantly denied thoughts of harming self or others denied intent or plan. Discharge Summary - Discharge Note Reason for Hospitalization: patient was admitted to psychiatric inpatient unit for evaluation and stabilization of disorganized, psychotic, depressive symptoms, please see emergency room visit for more detailed information. Psychiatric History (includes Medical, Family, Personal Hx): see HPI Laboratory Data: Abnormal Lab Results 12/16/17 12/17/17 12/17/17 21:43 07:23 12:01 WBC RBC Hgb Hct MCV MCH MCHC RDW Plt Count MPV Gran % Lymph % (Auto) [place] % (Auto) Eos % (Auto) Baso % (Auto) Gran # Lymph # (Auto) [place] # (Auto) Eos # (Auto) Baso # (Auto) POC Glucose (mg/dL) 210 H 136 H 122 H 12/17/17 12/17/17 12/18/17 16:10 21:43 07:18 WBC RBC Hgb Hct MCV MCH MCHC RDW Plt Count MPV Gran % Lymph % (Auto) [place] % (Auto) Eos % (Auto) Baso % (Auto) Gran # Lymph # (Auto) [place] # (Auto) Eos # (Auto) Baso # (Auto) POC Glucose (mg/dL) 139 H 199 H 122 H 12/18/17 12/18/17 11:23 12:40 WBC 10.8 RBC 4.14 Hgb 11.8 L Hct 34.7 L MCV 83.8 MCH 28.5 MCHC 34.0 RDW 15.8 H Plt Count 363 MPV 8.5 Gran % 50.8 Lymph % (Auto) 39.1 H [place] % (Auto) 8.8 H Eos % (Auto) 0.8 L Baso % (Auto) 0.5 Gran # 5.51 Lymph # (Auto) 4.2 H [place] # (Auto) 1.0 H Eos # (Auto) 0.1 Baso # (Auto) 0.05 POC Glucose (mg/dL) 152 H Consultations:: List each consultation separately and include: 1. Reason for request. 2. Findings. 3. Follow-up Consultations: patient was seen by Dr. Contreras for urinary tract infection, completed the course of antibiotics Summary of Hospital Course include:: 1. Description of specific treatment plan utilized for patients during their course of treatmen. 2. Summarize the time- course for resolution of acute symptoms and/or regressed behaviors. 3. Describe issues identified and worked on during hospitalization. 4. Describe medication utilized. 5. Describe medical problems identified and treated. 6. 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 pt presents to the emergency room expressing suicidal ideation and possible auditory hallucinations commanding pt to kill self and her cat pt was admitted for further evaluation and stabilization. patient is well known to this unit from multiple admissions to the psych unit, usually patient admits herself to the hospital every 2-3 weeks, at the same time patient has history of impulsive behavior, patient has history of suicidal attempts, patient was recently hospitalized in to the [facility] status post suicidal attempt on Clozaril, patient was admitted to ICU at [facility] in June 23 through June 25, status post overdose on Clozaril, status post suicidal attempt. Patient was then transferred to [facility] where she spent past 3 months patient was discharged from the [facility] September 16, 2017. Patient was seen at the treatment team meeting, fair ADLs, patient presented to be more disorganized than usual, patient had difficulties to find words and complained her sentences, patient has messy hair, patient had difficulties to stay focused and concentrate during the interview, patient reported that "I never felt that that before, I was feeling very down and depressed, I was feeling very hopeless, I called my mother and my mother advised me to come to the hospital". pt still delusional about (imaginary boyfriend). discussed with Nurse at PACT team, pt got a new kitten with the hope that it will prevent her from hospitalization. as per pt, her mother is taking care of that cat, as per ED pt said that she strangulated the cat, but pt denied. last admission pt tried to cut her writs. pt reported being compliant with her meds, "I always take my meds". Past psych h/o:see above, multiple admissions,[facility], pt is currently on two antipsychotic meds due to tx resistant psychosis. as per PACT report pt was on the following meds: patient is on Haldol decanoate 100 mg IM monthly due is December 29 Clozaril 350 mg by mouth at the nighttime for psychosis Cogentin 1 mg daily Iron pill 325 mg by mouth daily Folic acid 1 mg by mouth daily Haldol 10 mg by mouth daily for psychosis Januvia 50 mg by mouth daily Metformin 1000 mg by mouth twice a day Multivitamins 1 daily Lipitor 20 mg at the nighttime Depakote 500 mg twice a day for mood stabilization Patient is on Clozaril and blood need to be monitored weekly pt reported no side effects from meds, residual tremor on the right UE, not new , AIMS 0, no EPS. 12/11/17 07:15 12/11/17 07:15 Lab Results 12/11/17 12:20: Urine Color Yellow, Urine Appearance Clear, Urine pH 7.0, Ur Specific [facility] 1.010, Urine Protein Negative, Urine Glucose (UA) Negative, Urine Ketones Negative, Urine Blood Negative, Urine Nitrate Negative, Urine Bilirubin Negative, Urine Urobilinogen 0.2, Ur Leukocyte Esterase Negative 12/11/17 11:44: POC Glucose (mg/dL) 166 H 12/11/17 07:45: POC Glucose (mg/dL) 140 H 12/11/17 07:15: Sodium 138, Potassium 4.2, Chloride 102, Carbon Dioxide 24, Anion Gap 16, BUN 9, Creatinine 0.4 L, Est GFR ( Amer) > 60, Est GFR (Non -Af Amer) > 60, Random Glucose 139 H, Calcium 8.6, Total Bilirubin 0.2, AST 17, ALT 17, Alkaline Phosphatase 71, Total Protein 7.1, Albumin 3.8, Globulin 3.3, Albumin/Globulin Ratio 1.1 12/11/17 07:15: WBC 12.9 H, RBC 4.10, Hgb 11.8 L, Hct 34.5 L, MCV 84.1, MCH 28.8 , MCHC 34.2, RDW 16.0 H, Plt Count 313, MPV 8.7 12/10/17 22:09: POC Glucose (mg/dL) 266 H 12/10/17 16:40: POC Glucose (mg/dL) 159 H 12/10/17 12:11: POC Glucose (mg/dL) 148 H 12/10/17 08:31: POC Glucose (mg/dL) 176 H 12/10/17 06:30: Valproic Acid 57 12/10/17 06:30: Hemoglobin A1c 8.0 H 12/10/17 06:30: Sodium 138, Potassium 4.4, Chloride 101, Carbon Dioxide 25, Anion Gap 16, BUN 13, Creatinine 0.4 L, Est GFR ( Amer) > 60, Est GFR ( Non-Af Amer) > 60, Random Glucose 161 H, Calcium 8.8, Total Bilirubin 0.3, AST 17, ALT 21, Alkaline Phosphatase 69, Total Protein 7.2, Albumin 3.8, Globulin 3.4, Albumin/Globulin Ratio 1.1 12/10/17 06:30: RPR Nonreactive 12/10/17 06:30: TSH 3rd Generation 1.95 12/10/17 06:30: WBC 12.8 H D, RBC 4.28, Hgb 12.0, Hct 35.9 L, MCV 83.9, MCH 28.0 , MCHC 33.4, RDW 16.3 H, Plt Count 310, MPV 8.6, Gran % 42.5 L, Lymph % (Auto) 47.5 H, Dyer % (Auto) 8.7 H, Eos % (Auto) 0.9 L, Baso % (Auto) 0.4, Gran # 5.44 , Lymph # (Auto) 6.1 H, Dyer # (Auto) 1.1 H, Eos # (Auto) 0.1, Baso # (Auto) 0.05 12/09/17 21:24: POC Glucose (mg/dL) 230 H 12/09/17 11:58: POC Glucose (mg/dL) 236 H 12/09/17 08:55: POC Glucose (mg/dL) 156 H 12/08/17 16:49: Urine Opiates Screen Negative, Urine Methadone Screen Negative, Ur Barbiturates Screen Negative, Ur Phencyclidine Scrn Negative, Ur Amphetamines Screen Negative, U Benzodiazepines Scrn Negative, U Oth Cocaine Metabols Negative, U Cannabinoids Screen Negative 12/08/17 16:49: Urine Color Yellow, Urine Appearance Clear, Urine pH 6.5, Ur Specific [facility] 1.025, Urine Protein Trace H, Urine Glucose (UA) Negative, Urine Ketones 15 H, Urine Blood Negative, Urine Nitrate Negative, Urine Bilirubin Negative, Urine Urobilinogen 0.2, Ur Leukocyte Esterase Negative, Urine RBC 0 - 2, Urine WBC Negative, Ur Epithelial Cells 3 - 4, Urine Bacteria None, Hyaline Casts 0 - 2, Urine HCG, Qual Negative 12/08/17 15:02: Alcohol, Quantitative < 10 12/08/17 15:02: Salicylates < 1 L, Acetaminophen < 10.0 L 12/08/17 15:02: Sodium 138, Potassium 4.0, Chloride 98, Carbon Dioxide 25, Anion Gap 20, BUN 8, Creatinine 0.4 L, Est GFR ( Amer) > 60, Est GFR (Non -Af Amer) > 60, Random Glucose 177 H, Calcium 10.0, Total Bilirubin 0.3, AST 26 , ALT 21, Alkaline Phosphatase 83, Total Protein 8.4 H, Albumin 4.7, Globulin 3.7, Albumin/Globulin Ratio 1.2 12/08/17 15:02: WBC 9.8, RBC 4.47, Hgb 12.7, Hct 37.4, MCV 83.7, MCH 28.4, MCHC 34.0, RDW 16.3 H, Plt Count 336, MPV 9.1, Gran % 46.8 L, Lymph % (Auto) 44.2 H, Dyer % (Auto) 7.7 H, Eos % (Auto) 0.8 L, Baso % (Auto) 0.5, Gran # 4.59, Lymph # (Auto) 4.3 H, Dyer # (Auto) 0.8 H, Eos # (Auto) 0.1, Baso # (Auto) 0.05 Vital Signs Temp Pulse Pulse Resp BP Pulse Ox 12/11/17 08:00 119/85 12/11/17 06:49 97.8 F 79 18 119/85 12/10/17 16:17 100 H 120/85 12/10/17 08:53 132/78 12/10/17 06:37 97.2 F L 75 20 132/78 12/09/17 10:00 87 18 12/09/17 09:32 98.2 F 87 18 118/82 12/09/17 08:45 98.6 F 78 18 128/79 99 12/09/17 07:00 98.2 F 82 16 127/88 99 12/09/17 03:16 90 18 135/79 100 12/09/17 00:40 88 18 145/98 H 98 12/08/17 15:23 98.8 F 96 H 16 139/88 99 pt was seen by medical team, please see notes for more detailed information. over the course of this hospitalization pt continued on all of her meds clozaril was increased to 400mg daily pt tolerated all medications well, no side effects observed or reported I submitted Gran # to clozaril REMS discussed with PACT team, Lisa last week, Lani LI from PACT today. Over the course of this hospitalization pt was attending groups, pt also had medication management, had therapeutic milieu. Overall pt improved, reached max effect from this hospitalization. discussed long-term option, pt refused At the time of the discharge pt denied been depressed, denied thoughts of harming self or others, denied psychotic symptoms, pt is mildly disorganized, denied been anxious, pt is not in imminent danger to self or others, will be following up with PACT team, information about follow up appointment, time and address provided to the pt, it is patient responsibility to follow up with outpatient clinic, PMD as well as specialists (see SW note for more detailed information). In case pt will need to obtain results of studies pending at discharge pt was provided with contact information of Psychiatric Inpatient unit [phone] as well as Medical Record Department [phone]. pt does not use any drugs, does not smoke pt was provided with prescriptions for all of medications (please see medication reconciliation form) Pt was educated about safety plan in case of worsening of symptoms or in case of suicidal or homicidal ideation call 911 or go to the nearest ER, also was educated to take meds as prescribed and stay away from drugs, pt verbalized understanding. - Diagnosis (1) Schizoaffective disorder, bipolar type Current Visit: No Status: Chronic Priority: High - Final Diagnosis (DSM 5) Condition upon Discharge: STABLE Disposition: HOME/ ROUTINE Follow-up Treatment Plan: At the time of the discharge pt denied been depressed, denied thoughts of harming self or others, denied psychotic symptoms, pt is mildly disorganized, denied been anxious, pt is not in imminent danger to self or others, will be following up with PACT team, information about follow up appointment, time and address provided to the pt, it is patient responsibility to follow up with outpatient clinic, PMD as well as specialists (see SW note for more detailed information). In case pt will need to obtain results of studies pending at discharge pt was provided with contact information of Psychiatric Inpatient unit [phone] as well as Medical Record Department [phone]. pt does not use any drugs, does not smoke pt was provided with prescriptions for all of medications (please see medication reconciliation form) Pt was educated about safety plan in case of worsening of symptoms or in case of suicidal or homicidal ideation call 911 or go to the nearest ER, also was educated to take meds as prescribed and stay away from drugs, pt verbalized understanding. Prescriptions/Medication Reconciliation: RX: amLODIPine [Norvasc] 10 mg PO DAILY #7 tab RX: Aspirin [Aspirin Chewable] 81 mg PO DAILY #7 chew RX: Atorvastatin [Lipitor] 20 mg PO DIN #7 tab RX: Benztropine [Cogentin] 1 mg PO HS #14 tab RX: cloZAPine [Clozaril] 100 mg PO AMHS #14 tab RX: Clozapine [Clozapine Odt] 200 mg PO HS #7 tab.rapdis RX: Divalproex [Depakote DR(*BID*)] 500 mg PO BID #30 tcp RX: Folic Acid 1 mg PO DAILY #14 tab RX: Haloperidol [Haldol] 10 mg PO HS #14 tab RX: MetFORMIN [glucoPHAGE] 1,000 mg PO BID #30 tab RX: Multivitamin Therapeutic Tab [Thera Tab] 1 tab PO 0800 #14 tab RX: SITagliptin [Januvia] 50 mg PO DAILY #7 tab - Smoking Cessation Smoking Cessation Medication prescribed: No Reason for not providing: denied smoking - Antipsychotic Medications Pt discharged on 2 or more routine antipsychotic medications: Yes - Justification for 2 or more meds Failed 3 or more trials of Monotherapy: List medications: pt has treatment resistant schizophrenia, patient requires to be on 2 antipsychotic medications, Clozaril and Haldol Decanoate. Plan to taper monotherapy: List medications: As of now no Cross Taper in progress: List medications: ppatient is to continue Clozaril plus haloperidol Augmentation of Clozapine: Yes
[2017-12-29] MEDS ORDERED: Haloperidol Decanoate 100 mg/ml Inj IM ONE (13:49)
== END 2017-12-18 15:50 | disposition home or self-care (01) | DRG 885 ==
LOC: ED 14:50 → ERH 12-09 07:55 → PSYC 12-09 08:42
PROVIDERS: ADMIT Psychiatry & Neurology Psychiatry; ATTEND Psychiatry & Neurology Psychiatry
PROC: GZ3ZZZZ Medication Management (ICD-10-PCS; principal; 2017-12-09)
DX: F25.0 Schizoaffective disorder, bipolar type (principal); N39.0 Urinary tract infection, site not specified; R45.851 Suicidal ideations; E11.9 Type 2 diabetes mellitus without complications; I10 Essential (primary) hypertension; D72.829 Elevated white blood cell count, unspecified; R56.9 Unspecified convulsions; Z79.82 Long term (current) use of aspirin; Z79.84 Long term (current) use of oral hypoglycemic drugs; Z87.891 Personal history of nicotine dependence

== ENCOUNTER 2018-04-23 12:15 | Inpatient (IN) | payer MEDICARE, MEDICAID ==
[2018-04-23 12:46] VITALS: BMI 29.3
[2018-04-23 13:02] LABS: PH,URINE 6.5 (4.7-8.0); URINE BILIRUBIN NEGATIVE (NEGATIVE); URINE BLOOD NEGATIVE (NEGATIVE); URINE GLUCOSE (UA) 250 mg/dL (NEGATIVE); URINE LEUKOCYTE ESTERASE NEGATIVE Leu/uL (NEGATIVE); URINE PROTEIN NEGATIVE mg/dL (<30 mg/dL); URINE UROBILINOGEN 0.2 E.U./dL (<1 E.U./dL)
[2018-04-23 13:12] LABS: HCG,QUALITATIVE URINE NEGATIVE (NEGATIVE); URINE APPEARANCE CLEAR (CLEAR); URINE COLOR YELLOW (YELLOW)
[2018-04-23 13:24] LABS: BARBITURATES, UR NEGATIVE (NEGATIVE); BENZODIAZEPINES, UR NEGATIVE (NEGATIVE); OPIATES, UR NEGATIVE (NEGATIVE); PHENCYCLIDINE, UR NEGATIVE (NEGATIVE)
[2018-04-23 13:32] LABS: BASO # 0.03 K/mm3 (0.0-2.0); BASO % 0.3 % (0.0-3.0); EOS # 0.4 (0.0-0.7); GRAN # 6.15 (1.4-6.5); GRAN % 57.9 % (50.0-68.0); HEMOGLOBIN 11.4 g/dL (12.0-16.0); LYMPH # 2.9 (1.2-3.4); LYMPH % 27.1 % (22.0-35.0); MEAN CELL VOLUME 86.1 fl (80.0-105.0); MEAN CORPUSCULAR HEMOGLOBIN 28.7 pg (25.0-35.0); MEAN CORPUSCULAR HGB CONC 33.3 g/dl (31.0-37.0); MEAN PLATELET VOLUME 8.8 fl (7.0-11.0); MONO # 1.1 (0.1-0.6); MONO % 10.7 % (1.0-6.0); RBC 3.97 10^6/uL (3.5-6.1); RED CELL DISTRIBUTION WIDTH 16.3 % (11.5-14.5); WHITE BLOOD COUNT 10.6 10^3/uL (4.5-11.0)
--- NOTE | 2018-04-23 13:52 | ED PDOC ---
Arrival/HPI - General Time Seen by Provider: 04/23/18 12:17 Historian: Patient - History of Present Illness Narrative History of Present Illness (Text): 04/23/18 13:00 42 year old female, whose past medical history includes schizophrenia, HTN, and diabetes who presents to the Emergency department complaining of suicidal ideation prior to arrival. Patient reports that she tried to cut herself, but did not. Patient states that she presented to Emergency department because she became scared. No other complaints reported at this time. PMD: Lucía Mathis Time/Duration: Prior to Arrival Symptom Onset: Sudden Symptom Course: Unchanged Activities at Onset: Light Past Medical History - Provider Review Nursing Documentation Reviewed: Yes - Past History Past History: Non-Contributing - Infectious Disease Hx of Infectious Diseases: None - Tetanus Immunization Tetanus Immunization: Unknown - Cardiac Hx Hypertension: Yes - Neurological Hx Seizures: Yes - HEENT Hx HEENT Disorder: No - Renal Hx Renal Disorder: No - Endocrine/Metabolic Hx Endocrine Disorders: Yes Hx Diabetes Mellitus Type 2: Yes - Hematological/Oncological Hx Anemia: Yes - Integumentary Hx Dermatological Disorder: No - Musculoskeletal/Rheumatological Hx Musculoskeletal Disorders: No - Gastrointestinal Hx Gastrointestinal Disorders: No - Genitourinary/Gynecological Hx Sexually Transmitted Diseases: No - Psychiatric Hx Anxiety: Yes Hx Bipolar Disorder: Yes Hx Depression: Yes Hx Paranoia: Yes Hx Schizophrenia: Yes Hx Substance Use: No - Anesthesia Hx Anesthesia: No Hx Anesthesia Reactions: No Hx Malignant Hyperthermia: No - Suicidal Assessment Feels Threatened In Home Enviroment: No Family/Social History - Physician Review Nursing Documentation Reviewed: Yes Family/Social History: No Known Family HX Smoking Status: Former Smoker Hx Alcohol Use: No Hx Substance Use: No Hx Substance Use Treatment: No Allergies/Home Meds Allergies/Adverse Reactions: Allergies No Known Allergies Allergy (Verified 03/31/18 14:16) Review of Systems - Physician Review All systems were reviewed & negative as marked: Yes - Review of Systems Constitutional: Normal Psychiatric: Suicidal Ideation (pt reports suicidal ideation, noting she tried to cut herself). absent: Normal Physical Exam Vital Signs Reviewed: Yes Temperature: Afebrile Blood Pressure: Normal Pulse: Tachycardic Respiratory Rate: Normal Appearance: Positive for: Well-Appearing, Non-Toxic Pain Distress: None Mental Status: Positive for: Alert and Oriented X 3 - Systems Exam Head: Present: Atraumatic, Normocephalic Pupils: Present: PERRL Extroacular Muscles: Present: EOMI Conjunctiva: Present: Normal Mouth: Present: Moist Mucous Membranes Neck: Present: Normal Range of Motion Respiratory/Chest: Present: Clear to Auscultation, Good Air Exchange. No: Respiratory Distress, Accessory Muscle Use Cardiovascular: Present: Regular Rate and Rhythm, Normal S1, S2. No: Murmurs Abdomen: No: Tenderness, Distention, Peritoneal Signs Back: Present: Normal Inspection Upper Extremity: Present: Normal Inspection. No: Cyanosis, Edema Lower Extremity: Present: Normal Inspection. No: Edema Neurological: Present: GCS=15, CN II-XII Intact, Speech Normal Skin: Present: Warm, Dry, Normal Color. No: Rashes Psychiatric: Present: Alert, Oriented x 3 Medical Decision Making ED Course and Treatment: 04/23/18 13:00 Impression: 42 year old female who presents to the Emergency department complaining of suicidal ideation prior to arrival. Differential Diagnosis included but are not limited to: Plan: -- EKG -- Acetaminophen -- Alcohol serum -- CMP -- Drug screen, urine -- Magnesium -- Salicylate -- CBC (with differential) -- X-Ray of chest -- POC Urine test -- HCG, qualitative urine -- Urinalysis -- Reassess and disposition Prior Visits: Notes and results from previous visits were reviewed. Patient was last seen in the emergency department on 03/31/18 for complaints of suicidal ideation. Pt was discharged home in stable condition. Progress Notes: - Lab Interpretations Lab Results: 04/23/18 13:20 Lab Results 04/23/18 13:20: WBC 10.6, RBC 3.97, Hgb 11.4 L, Hct 34.2 L, MCV 86.1, MCH 28.7, MCHC 33.3, RDW 16.3 H, Plt Count 331, MPV 8.8, Gran % 57.9, Lymph % (Auto) 27.1, [place] % (Auto) 10.7 H, Eos % (Auto) 4.0, Baso % (Auto) 0.3, Gran # 6.15, Lymph # (Auto) 2.9, [place] # (Auto) 1.1 H, Eos # (Auto) 0.4, Baso # (Auto) 0.03 04/23/18 12:44: Urine Opiates Screen Negative, Urine Methadone Screen Negative, Ur Barbiturates Screen Negative, Ur Phencyclidine Scrn Negative, Ur Amphetamines Screen Negative, U Benzodiazepines Scrn Negative, U Oth Cocaine Metabols Negative, U Cannabinoids Screen Negative 04/23/18 12:44: Urine Color Yellow, Urine Appearance Clear, Urine pH 6.5, Ur Specific [place] 1.015, Urine Protein Negative, Urine Glucose (UA) 250 H, Urine Ketones 15 H, Urine Blood Negative, Urine Nitrate Negative, Urine Bilirubin Negative, Urine Urobilinogen 0.2, Ur Leukocyte Esterase Negative, Urine HCG, Qual Negative - RAD Interpretation Narrative RAD Interpretations (Text): X-Ray of chest reviewed by radiologist, shows: Dictated By: Jason Esteban MD Dictated Date/Time: 04/23/18 17:04 Impression: No active disease. No significant interval change compared to the prior examination(s). Radiology Orders: 04/23/18 13:07 CHEST PORTABLE [RAD] Stat Sheet Taker: Radiologist - EKG Interpretation EKG Interpretation (Text): 04/23/18 EKG: Ordered, reviewed, and independently interpreted the EKG. Rate : 94 BPM Rhythm : NSR Interpretation : Nonspecific st-t changes Interpreted by ED Physician: Yes Type: 12 lead EKG - Scribe Statement The provider has reviewed the documentation as recorded by the Scribe Isabela Moore All medical record entries made by the Scribe were at my direction and personally dictated by me. I have reviewed the chart and agree that the record a ccurately reflects my personal performance of the history, physical exam, medical decision making, and the department course for this patient. I have also personally directed, reviewed, and agree with the discharge instructions and disposition. Disposition/Present on Arrival - Present on Arrival Any Indicators Present on Arrival: No History of DVT/PE: No History of Uncontrolled Diabetes: No Urinary Catheter: No History Surgical Site Infection Following: None - Disposition Have Diagnosis and Disposition been Completed?: Yes Diagnosis: Depression Disposition: HOSPITALIZED Disposition Time: 15:00 Condition: STABLE
[2018-04-23 14:11] LABS: ALB/GLOB RATIO 1.2 (1.1-1.8); ALBUMIN 3.9 g/dL (3.0-4.8); ALT/SGPT 16 U/L (7-56); AST/SGOT 25 U/L (14-36); BLOOD UREA NITROGEN 9 mg/dL (7-21); CALCIUM 9.2 mg/dL (8.4-10.5); GFR NON-AFRICAN AMERICAN > 60
[2018-04-23 14:12] LABS: ACETAMINOPHEN < 10.0 ug/ml (10.0-20.0); SALICYLATE < 1 mg/dL (2.0-20.0)
--- NOTE | 2018-04-23 17:08 | RAD ---
Date of service: 04/23/2018 HISTORY: psych COMPARISON: 12/09/2017 FINDINGS: LUNGS: No active pulmonary disease. PLEURA: No significant pleural effusion identified, no pneumothorax apparent. CARDIOVASCULAR: No atherosclerotic calcification present Normal. OSSEOUS STRUCTURES: No significant abnormalities. VISUALIZED UPPER ABDOMEN: Normal. OTHER FINDINGS: None. IMPRESSION: No active disease. No significant interval change compared to the prior examination(s).
[2018-04-23 17:45] VITALS: O2SAT 98
--- NOTE | 2018-04-23 18:05 | CARD ---
APPROVED REPORT Date of service: 04/23/2018 EKG Measurement Heart [id number] <Conclusion> Normal sinus rhythm Minimal voltage criteria for LVH, may be normal variant Nonspecific T wave abnormality Abnormal ECG
[2018-04-23] MEDS ORDERED: Alum-Mag Hydrox-Simethicone Susp (30 mL) PO PRN (18:30)
[2018-04-23] MEDS ORDERED: Magnesium Hydroxide Susp 30 ml UD PO PRN (18:31)
--- NOTE | 2018-04-23 23:57 | PCM.BM ---
Treatment assets and liabiliti Patient Assests: adapts well, cooperative, self-reliant, ADL independent, negotiates basic needs, cognitively intact, good interpersonal skills
--- NOTE | 2018-04-24 00:10 | PCM.BM ---
<James Whitney - Last Filed: 04/24/18 02:58> Treatment Plan Problems - Problems identified on initial assessmt AUDITORY HALLUCINATION Date Initiated: 04/23/18 Time Initiated: 21:00 Assessment reference: NA Status: Active Priority: 1 VISUAL HALLUCINATION Date Initiated: 04/23/18 Time Initiated: 21:00 Assessment reference: NA Status: Active Priority: 2 MEDICATION NONADHERENCE Date Initiated: 04/23/18 Time Initiated: 21:00 Assessment reference: NA Status: Active Priority: 4 SUICIDAL IDEATION Date Initiated: 04/23/18 Time Initiated: 21:00 Assessment reference: NA Status: Active Priority: 3 Treatment assets and liabiliti Patient Assests: adapts well, cooperative, educated, self-reliant, ADL independent, negotiates basic needs, cognitively intact, good interpersonal skills Patient Liabilities: live alone, financial problems, dietary restrictions, medical problems - Milieu Protocol Maintain good personal hygiene: every other day Encourage regular showers, every shift Remind patient to perform daily oral care, every shift Assist patient to perform ADL's Maintain personal safety: every other day Educate patient to report safety concerns to staff, every other day Monitor environment for contraband/sharps Medication safety: Monitor for expected outcome, potential side effects: every other day, Assess barriers to learning: every other day, Assess readiness for medication education: every other day Family Contact Family contact: Patient agrees to contact Discharge/Continuing Care - Education Needs Education Needs: Patient Medication, Patient Diagnosis/Disease Process, Patient Coping Skills, Patient Placement options, Patient Nutrition, Patient Health Practices/Safety - Discharge Discharge Criteria: Tolerates medication w/o severe side effects, Free of Suicidal thoughts, Free of paranoid thoughts, Normal sleep pattern <Zonia José - Last Filed: 04/24/18 17:34> - Diagnosis (1) Schizoaffective disorder Status: Acute Interventions: 04/24/18 17:34 Psychoeducation/psychotherapy Psychopharmacology/adjustment of medications as needed/ monitoring possible side effects Evaluate pt on daily basis Compliance with medications and follow up appointments Long acting medication if pt is noncompliant with pill form Suicide and homicide risk assessment and prevention, coping strategies, safety plan Relapse prevention Reduction of symptoms Improve functional status Possible assertive community treatment Cognitive behavioral therapy Family involvement Possible social skill training as outpatient <Lucila Capone - Last Filed: 04/25/18 16:21> Family Contact - Outside Agency [facility] Care involvment: Information-sharing Agency contact name: [facility] contact number: [phone]
[2018-04-24 07:44] LABS: GLUCOSE,FASTING 147 mg/dL (65-110); HDL CHOLESTEROL 29 mg/dL (29-60)
[2018-04-24 07:55] LABS: LDL CHOLESTEROL 127 mg/dL (0-129)
[2018-04-24 08:05] LABS: FREE T4 0.99 ng/dL (0.78-2.19)
[2018-04-24] MEDS: Divalproex 500 mg DR(BID formulation) PO SCH ×2 (09:32→17:36)
--- NOTE | 2018-04-24 13:17 | CON ---
DATE: 04/24/2018 HISTORY OF PRESENT ILLNESS: I know very well for many admissions to the hospital, also in my office. She is a 42-year-old female who arrives complaining of suicidal ideation and depression. She has done this before. She tried to cut herself, but did not do it. PAST MEDICAL HISTORY: She has a past medical history includes; schizophrenia, hypertension, diabetes, depression, anxiety, seizure history, high cholesterol, anemia history, anxiety, depression, paranoia, schizophrenia. FAMILY HISTORY: No known family history. SOCIAL HISTORY: Former smoker. No alcohol. No drugs. ALLERGIES: NO KNOWN DRUG ALLERGIES. REVIEW OF SYSTEMS: She is suicidal, tried to cut herself, but she did not do it. At this time, she get some Clozaril. She is very lethargic in bed arousable, spoke good morning and went back to sleep. PHYSICAL EXAMINATION: GENERAL: Alert and sluggish on Clozaril, VITAL SIGNS: She has a 98 temperature, 83 pulse, blood pressure, 20 respiratory rate, 98% O2 sat on room air. HEENT: Head is atraumatic and normocephalic. Extraocular muscles are intact. Throat is moist. NECK: Supple. HEART: Regular rate. Normal S1 and S2. LUNGS: Decreased breath sounds, but clear. ABDOMEN: Soft and nontender. Positive bowel sounds. EXTREMITIES: No edema. NEUROLOGIC: GCS is 15. Cranial nerves II through XII grossly intact. SKIN: Warm and dry. No apparent rashes. PSYCHIATRIC: She is alert. LYMPH: Thyroid midline. No palpable appreciable lymphadenopathy. LABORATORY DATA: She had multiple tests. Chest x-ray was clear. EKG was normal in sinus rhythm. She has a urine drug screen that was normal. Her urine that was 250 sugar and clean negative . Sodium 137, potassium 4.1, BUN 9, creatinine 0.5, GFR is greater than 60, sugar is 199, calcium 9.22, magnesium 1.4. Total bilirubin is 0.2, AST is 25, ALT is 16, alkaline phosphatase 83. Total protein 7.4, albumin is 3.9. Triglycerides 130, cholesterol 163, LDL is 127. TSH is 4.48. White count 7.6, hemoglobin 11.4, hematocrit 34.2 and platelets of 331. She is here for suicidal ideation, depression. She has hypertension, high cholesterol, diabetes, schizophrenia, and seizure history. She is very close to her INR. Check her labs tomorrow. Jason Contreras DO [facility]
--- NOTE | 2018-04-24 17:34 | PCM.PSYCH ---
Initial Psychiatric Evaluation - Initial Psychiatric Evaluation Type of Admission: Voluntary Legal Status: Capacity (Patient has capacity to sign consent for treatment) Chief Complaint (in patient's own words): "I told my team that I am not feeling well, my team advised me to come to the hospital, I was feeling very depressed, but now I feel much better, before [place] to the hospital I had thoughts to cut myself, this is acute deviation from my baseline" Patient's Reaction to Hospitalization: Patient was admitted to the psychiatric inpatient unit for evaluation and stabilization for possible worsening of psychosis, possible suicidal ideation, patient was not able to contract for safety in the emergency room. 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, patient under care of PACT team, patient came to the hospital looking for help for her psychotic symptoms, patient reported that she is sees "ghosts, devils and demons", patient had expressed suicidal ideation with a plan to cut her wrists, patient was not able to contract for safety in the emergency room, required further evaluation and stabilization and observation. This blurb writer is very familiar with this patient from the multiple admissions to the psychiatric inpatient unit in the past, patient presented with acceptable personal hygiene, patient had good ADLs. Patient has chronic mental illness, patient using professional statements such as "acute deviation from my baseline" learned from multiple admissions in the past. Patient is very superficial, patient reported that she was hearing voices as well as seeing ghosts as well as devils as well as demons, patient reported that she was not able to contract for safety, patient came to the hospital looking for help. Patient reported that she found out that her PACT team and "they advised me to come to the hospital", but as per collateral information she never called PACT prior to come to the hospital. Patient reported that the present moment she feels "comfortable", patient was observed attending groups. Lani LI from PACT team contacted. Medication list confirmed, meds resumed. As per collateral's patient was seen at the day of admission, patient was doing relatively fine, patient expressed no suicidal ideations or psychosis. Med list: paxil 20mg daily norvasc 10mg daily ASA 81 daily cogentin 1mg bid clozaril 200mg hs and 100dbid depakote 500mg bid haldol dec 100mg monthy, last dose was 04/23/18 januvia 50mg daily metformin 100mg bid trazodone 50mg hs Past psychiatric history: Patient has multiple hospitalizations including [facility] Medical history: Diabetes, hyperlipidemia, see medical consultation for more detailed information Family history: Not known family history of mental illness Social history: Patient lives independently, does not work, has supportive mother, followed up by PACT team Patient denied history of using drugs, denied smoking, urine drug screen is negative for any substances 04/23/18 13:20 04/23/18 13:20 Lab Results 04/24/18 07:00: RPR Nonreactive 04/24/18 07:00: Free T4 0.99, TSH 3rd Generation 4.48 04/24/18 07:00: Fasting Glucose 147 H, Triglycerides 130, Cholesterol 163, LDL Cholesterol Direct 127, HDL Cholesterol 29 04/23/18 13:20: Alcohol, Quantitative < 10 04/23/18 13:20: Salicylates < 1 L, Acetaminophen < 10.0 L 04/23/18 13:20: Sodium 137, Potassium 4.1, Chloride 100, Carbon Dioxide 25, Anion Gap 15, BUN 9, Creatinine 0.5 L, Est GFR ( Amer) > 60, Est GFR (Non-Af Amer) > 60, Random Glucose 199 H, Calcium 9.2, Magnesium 1.4 L, Total Bilirubin 0.2, AST 25, ALT 16, Alkaline Phosphatase 83, Total Protein 7.4, Albumin 3.9, Globulin 3.4, Albumin/Globulin Ratio 1.2 04/23/18 13:20: WBC 10.6, RBC 3.97, Hgb 11.4 L, Hct 34.2 L, MCV 86.1, MCH 28.7, MCHC 33.3, RDW 16.3 H, Plt Count 331, MPV 8.8, Gran % 57.9, Lymph % (Auto) 27.1, [place] % (Auto) 10.7 H, Eos % (Auto) 4.0, Baso % (Auto) 0.3, Gran # 6.15, Lymph # (Auto) 2.9, [place] # (Auto) 1.1 H, Eos # (Auto) 0.4, Baso # (Auto) 0.03 04/23/18 12:44: Urine Opiates Screen Negative, Urine Methadone Screen Negative, Ur Barbiturates Screen Negative, Ur Phencyclidine Scrn Negative, Ur Amphetamines Screen Negative, U Benzodiazepines Scrn Negative, U Oth Cocaine Metabols Negative, U Cannabinoids Screen Negative 04/23/18 12:44: Urine Color Yellow, Urine Appearance Clear, Urine pH 6.5, Ur Specific [place] 1.015, Urine Protein Negative, Urine Glucose (UA) 250 H, Urine Ketones 15 H, Urine Blood Negative, Urine Nitrate Negative, Urine Bilirubin Negative, Urine Urobilinogen 0.2, Ur Leukocyte Esterase Negative, Urine HCG, Qual Negative Vital Signs Temp Pulse Resp BP Pulse Ox 04/24/18 09:30 140/101 H 04/24/18 07:07 98.0 F 83 20 140/101 H 04/23/18 23:36 97.4 F L 20 135/87 04/23/18 17:41 98.1 F 72 18 130/89 98 04/23/18 15:07 98.8 F 95 H 18 128/85 97 The patient failed the outpatient lower level of care: Yes Current Medications: Active Medications Generic Name Dose Route Start Last Admin Trade Name Freq PRN Reason Stop Dose Admin Acetaminophen 650 mg 04/23/18 18:29 Tylenol 325mg Tab PO Q6H PRN Pain, moderate (4-7) Al Hydrox/Mg Hydrox/Simethicone 30 ml 04/23/18 18:30 Maalox Plus 30 Ml PO DAILY PRN Indigestion / Heartburn Amlodipine Besylate 10 mg 04/24/18 08:00 Norvasc PO DAILY [facility] Aspirin 81 mg 04/24/18 08:00 Aspirin Chewable PO DAILY [facility] Atorvastatin Calcium 20 mg 04/24/18 17:00 Lipitor PO DIN [facility] Benztropine Mesylate 1 mg 04/24/18 08:00 Cogentin PO BID NITIN Benztropine Mesylate 1 mg 04/23/18 22:00 04/23/18 21:45 Cogentin PO 1 mg HS NITIN Administration Clozapine 50 mg 04/23/18 22:00 04/23/18 21:45 Clozaril PO 50 mg AMHS NITIN Administration Protocol Divalproex Sodium 500 mg 04/24/18 08:00 Jericho Menezes(*Bid*) PO BID NITIN Haloperidol 5 mg 04/23/18 22:00 04/23/18 21:46 Haldol PO 5 mg HS NITIN Administration Protocol Magnesium Hydroxide 30 ml 04/23/18 18:31 Milk Of Magnesia PO DAILY PRN Constipation Metformin HCl 1,000 mg 04/24/18 08:00 Glucophage PO BID NITIN Paroxetine HCl 20 mg 04/24/18 08:00 Paxil PO DAILY NITIN Sitagliptin Phosphate 50 mg 04/24/18 08:00 Januvia PO DAILY NITIN Trazodone HCl 50 mg 04/23/18 22:00 04/23/18 21:45 Desyrel PO 50 mg HS NITIN Administration Present on Admission - Present on Admission Any Indicators Present on Admission: No Review of Systems - Review of Systems Systems not reviewed;Unavailable: Acuity of Condition - Constitutional Constitutional: As Per HPI - EENT Eyes: As Per HPI Ears: As Per HPI Nose/Mouth/Throat: As Per HPI - Breasts Breasts: As Per HPI - Cardiovascular Cardiovascular: As Per HPI - Respiratory Respiratory: As Per HPI - Gastrointestinal Gastrointestinal: As Per HPI - Genitourinary Genitourinary: As Per HPI - Reproductive: Female Reproductive:Female: As Per HPI - Menstruation Menstruation: As Per HPI - Musculoskeletal Musculoskeletal: As Per HPI - Integumentary Integumentary: As Per HPI - Neurological Neurological: As Per HPI - Psychiatric Psychiatric: As Per HPI - Endocrine Endocrine: As Per HPI - Hematologic/Lymphatic Hematologic: As Per HPI Past Patient History - Past Psychiatric History Previous Treatment History: Inpatient Prior Professional Help: See HPI Prior Psychiatric Treatment: See HPI At what hospital: See HPI Duration: See HPI Nature of Treatment: See HPI Explanation of prior treatment: See HPI - PSYCHIATRIC Hx Bipolar Disorder: Yes Hx Schizophrenia: Yes Hx Substance Use: No - Infectious Disease Hx of Infectious Diseases: None - Tetanus Immunizations Tetanus Immunization: Unknown - Past Medical History & Family History Past Medical History?: No - CARDIAC Hx Hypertension: Yes - NEUROLOGICAL Hx Seizures: Yes - HEENT Hx HEENT Problems: No - RENAL Hx Chronic Kidney Disease: No - ENDOCRINE/METABOLIC Hx Endocrine Disorders: Yes Hx Diabetes Mellitus Type 2: Yes - HEMATOLOGICAL/ONCOLOGICAL Hx Anemia: Yes - INTEGUMENTARY Hx Dermatological Problems: No - MUSCULOSKELETAL/RHEUMATOLOGICAL Hx Musculoskeletal Disorders: No - GASTROINTESTINAL Hx Gastrointestinal Disorders: No - GENITOURINARY/GYNECOLOGICAL Hx Genitourinary Disorders: No Hx Sexually Transmitted Disorders: No - SURGICAL HISTORY Hx Surgeries: No - ANESTHESIA Hx Anesthesia: No Hx Anesthesia Reactions: No Hx Malignant Hyperthermia: No - Medical/Surgical History Reviewed & confirmed: by wa Meds Allergies/Adverse Reactions: Allergies Allergy/AdvReac Type Severity Reaction Status Date / Time No Known Allergies Allergy Verified 04/23/18 18:24 Mental Status Examination - Personal Presentation Personal Presentation: Looks stated age - Affect Affect: Flat - Motor Activity Motor Activity: Calm - Reliability in Providing Information Reliability in Providing Information: Poor, due to alteration in thoughts, Poor, due to cognitve impairment - Speech Speech: Disorganized - Mood Mood: Depressed - Formal Thought Process Formal Thought Process: Hallucinations, Other (Disorganized thought process) - Hallucinations/Delusions Delusions: Persecution - Obsessions/Compulsions Obsessions: None Compulsions: None - Cognitive Functions Orientation: Person, Place, Situation, Time Sensorium: Alert Attention/Concentration: Easily distracted Abstract Thinking: [place] Estimate of Intelligence: Below average Judgement: Intact, as evidence by: Insight regarding need for hospitalization - Risk Risk: Diminished functioning - Strength & Assets Inventory Strength & Assets Inventory: Family support, Life experience, Cooperative, Other (No substance abuse) - Limitations Limitations: Other (Multiple medical issues, chronic mental illness) Psychiatric Physical Exam - Physical Exam Reviewed and confirmed: Emergency Department Physical Exam Results - Vital Signs Recent Vital Signs: Last Vital Signs Temp 98.0 F 04/24/18 07:07 Pulse 83 04/24/18 07:07 Resp 20 04/24/18 07:07 BP 140/101 H 04/24/18 07:07 Pulse Ox 98 04/23/18 17:41 - Labs Result Diagrams: 04/23/18 13:20 04/23/18 13:20 Labs: Laboratory Results - last 24 hr 04/23/18 04/23/18 04/23/18 12:44 12:44 13:20 WBC 10.6 RBC 3.97 Hgb 11.4 L Hct 34.2 L MCV 86.1 MCH 28.7 MCHC 33.3 RDW 16.3 H Plt Count 331 MPV 8.8 Gran % 57.9 Lymph % (Auto) 27.1 [place] % (Auto) 10.7 H Eos % (Auto) 4.0 Baso % (Auto) 0.3 Gran # 6.15 Lymph # (Auto) 2.9 [place] # (Auto) 1.1 H Eos # (Auto) 0.4 Baso # (Auto) 0.03 Sodium Potassium Chloride Carbon Dioxide Anion Gap BUN Creatinine Est GFR ( Amer) Est GFR (Non-Af Amer) Random Glucose Fasting Glucose Calcium Magnesium Total Bilirubin AST ALT Alkaline Phosphatase Total Protein Albumin Globulin Albumin/Globulin Ratio Triglycerides Cholesterol LDL Cholesterol Direct HDL Cholesterol Free T4 TSH 3rd Generation Urine Color Yellow Urine Appearance Clear Urine pH 6.5 Ur Specific [place] 1.015 Urine Protein Negative Urine Glucose (UA) 250 H Urine Ketones 15 H Urine Blood Negative Urine Nitrate Negative Urine Bilirubin Negative Urine Urobilinogen 0.2 Ur Leukocyte Esterase Negative Urine HCG, Qual Negative Salicylates Urine Opiates Screen Negative Urine Methadone Screen Negative Acetaminophen Ur Barbiturates Screen Negative Ur Phencyclidine Scrn Negative Ur Amphetamines Screen Negative U Benzodiazepines Scrn Negative U Oth Cocaine Metabols Negative U Cannabinoids Screen Negative Alcohol, Quantitative 04/23/18 04/23/18 04/23/18 13:20 13:20 13:20 WBC RBC Hgb Hct MCV MCH MCHC RDW Plt Count MPV Gran % Lymph % (Auto) [place] % (Auto) Eos % (Auto) Baso % (Auto) Gran # Lymph # (Auto) [place] # (Auto) Eos # (Auto) Baso # (Auto) Sodium 137 Potassium 4.1 Chloride 100 Carbon Dioxide 25 Anion Gap 15 BUN 9 Creatinine 0.5 L Est GFR ( Amer) > 60 Est GFR (Non-Af Amer) > 60 Random Glucose 199 H Fasting Glucose Calcium 9.2 Magnesium 1.4 L Total Bilirubin 0.2 AST 25 ALT 16 Alkaline Phosphatase 83 Total Protein 7.4 Albumin 3.9 Globulin 3.4 Albumin/Globulin Ratio 1.2 Triglycerides Cholesterol LDL Cholesterol Direct HDL Cholesterol Free T4 TSH 3rd Generation Urine Color Urine Appearance Urine pH Ur Specific [place] Urine Protein Urine Glucose (UA) Urine Ketones Urine Blood Urine Nitrate Urine Bilirubin Urine Urobilinogen Ur Leukocyte Esterase Urine HCG, Qual Salicylates < 1 L Urine Opiates Screen Urine Methadone Screen Acetaminophen < 10.0 L Ur Barbiturates Screen Ur Phencyclidine Scrn Ur Amphetamines Screen U Benzodiazepines Scrn U Oth Cocaine Metabols U Cannabinoids Screen Alcohol, Quantitative < 10 04/24/18 04/24/18 07:00 07:00 WBC RBC Hgb Hct MCV MCH MCHC RDW Plt Count MPV Gran % Lymph % (Auto) [place] % (Auto) Eos % (Auto) Baso % (Auto) Gran # Lymph # (Auto) [place] # (Auto) Eos # (Auto) Baso # (Auto) Sodium Potassium Chloride Carbon Dioxide Anion Gap BUN Creatinine Est GFR ( Amer) Est GFR (Non-Af Amer) Random Glucose Fasting Glucose 147 H Calcium Magnesium Total Bilirubin AST ALT Alkaline Phosphatase Total Protein Albumin Globulin Albumin/Globulin Ratio Triglycerides 130 Cholesterol 163 LDL Cholesterol Direct 127 HDL Cholesterol 29 Free T4 0.99 TSH 3rd Generation 4.48 Urine Color Urine Appearance Urine pH Ur Specific [place] Urine Protein Urine Glucose (UA) Urine Ketones Urine Blood Urine Nitrate Urine Bilirubin Urine Urobilinogen Ur Leukocyte Esterase Urine HCG, Qual Salicylates Urine Opiates Screen Urine Methadone Screen Acetaminophen Ur Barbiturates Screen Ur Phencyclidine Scrn Ur Amphetamines Screen U Benzodiazepines Scrn U Oth Cocaine Metabols U Cannabinoids Screen Alcohol, Quantitative - EKG Data EKG Interpreted by: ER Physician DSM Plan - DSM 5 DSM 5 Diagnosis: As per history of schizophrenia versus schizoaffective disorder - Recommended/Plan of Treatment Treatment Recommendations and Plan of Treatment: Milieu/structure/supportive therapy Medical consult appreciated, see medical team note for more detailed info SW consultation for discharge plan and social issues Med management amLODIPine [Norvasc] 10 mg PO DAILY Aspirin [Aspirin Chewable] 81 mg PO DAILY Atorvastatin [Lipitor] 20 mg PO DIN Benztropine [Cogentin] 1 mg PO BID and HS cloZAPine [Clozaril] 100 mg PO AMHS bid for psychosis Clozapine [Clozapine Odt] 200 mg PO HS for psychosis haldol dec 100mg last dose was 04/23/18 for psychosis Divalproex [Depakote DR] 500 mg PO BID mood stabilization MetFORMIN [glucoPHAGE] 1,000 mg PO BID PARoxetine [Paxil] 20 mg PO DAILY for depression and anxiety SITagliptin [Januvia] 50 mg PO DAILY traZODone [Desyrel] 50 mg PO HS for depression and insomnia Family involvement Follow up on labs Will monitor closely Pt was educated about risk/benefits and alternatives of medications, coping strategies (safety plan, suicide prevention), relapse prevention, importance of follow up with psychiatrist and therapist, stay away from drugs/alcohol/smoking Projected ELOS: 7 days Prognosis: Guarded Discharge Plan and Discharge Criteria: Pt will be not depressed or manic, will be more hopeful, will be not psychotic or anxious, will be not having thoughts of harming self or others, will be tolerating medications well, will not have major side effects, will be able to function, will not pose threat to self or others. - Tobacco Cessation Tobacco Use Status for the last 30 days: Non User Tobacco Use Treatment Practical Counseling Provided: No Tobacco Use Treatment FDA-Approved Cessation Medication Provided: No - Alcohol or Substance Abuse Does the patient have an Alcohol or Substance Abuse Disorder: No Initial Psych Certification - Initial Certification I certify that the inpatient psychiatric facility admission was medically necessary for either: Treatment which could reasonbly be expected to improve pt's condition I estimate of hospitalization is necessary for proper treatment of the patient: 7 Unit of Time: Days My plans for post-hospital care for this patient are: PACT team f/u
[2018-04-25 07:51] LABS: MEAN CELL VOLUME 86.1 fl (80.0-105.0); MEAN CORPUSCULAR HEMOGLOBIN 28.3 pg (25.0-35.0); MEAN CORPUSCULAR HGB CONC 32.8 g/dl (31.0-37.0); MEAN PLATELET VOLUME 8.5 fl (7.0-11.0); RBC 3.89 10^6/uL (3.5-6.1); RED CELL DISTRIBUTION WIDTH 16.4 % (11.5-14.5); WHITE BLOOD COUNT 10.6 10^3/uL (4.5-11.0)
[2018-04-25 08:05] LABS: ALB/GLOB RATIO 1.1 (1.1-1.8); ALBUMIN 3.6 g/dL (3.0-4.8); ALT/SGPT 23 U/L (7-56); AST/SGOT 15 U/L (14-36); BLOOD UREA NITROGEN 7 mg/dL (7-21); CALCIUM 8.7 mg/dL (8.4-10.5); GFR NON-AFRICAN AMERICAN > 60
[2018-04-25] MEDS: Divalproex 500 mg DR(BID formulation) PO SCH ×2 (08:44→16:47)
--- NOTE | 2018-04-25 15:03 | PN ---
DATE: 04/25/2018 SUBJECTIVE: I saw her resting comfortably in the bed on the psych floor. She is alert. She is comfortable. She is feeling better with the medications. She is eating better. No complaints. MEDICATIONS: She is currently on aspirin, Clozaril, Cogentin, Depakote, Desyrel, Glucophage, Haldol, Januvia, Lipitor, Maalox, milk of magnesia, Norvasc, Taxol, and Tylenol. PHYSICAL EXAMINATION: GENERAL: She has a 98.6 temp, 79 pulse, 114/79 blood pressure, and 20 respiratory rate. HEENT: Head is atraumatic, normocephalic. HEART: Regular rate. LUNGS: Clear to auscultation. ABDOMEN: Soft, obese, and nontender. PSYCHIATRIC: She is in a good mood. She is smiling. No chest pain. No shortness of breath. No abdominal pain. LABORATORY DATA: She has a 10.6 white count, 11 hemoglobin, 32.5 hematocrit with 318 platelets. Sodium 138, potassium 4.2, BUN 24, GFR is greater than 60, sugar is 158, calcium 8.7, magnesium 1.5, total bili is 0.2, AST is 15, ALT is 23, alk phos 71, total protein is 7, and TSH is 4.48. Urine was clean for infection. ASSESSMENT AND PLAN: She will continue with aggressive treatment and care as per Psychiatry. I do think she is slowly improving. She has to get to the Clozaril and hopefully she will and will watch her slowly depression and suicidal ideation. Jason Contreras DO [facility]
--- NOTE | 2018-04-25 16:25 | PCM.PYCHPN ---
Psychiatric Progress Note - Psychiatric Progress Note Patient seen today, length of contact: 30 minutes Patient Chief Complaint: "I want to be discharged before Alejo" Problems Identified/Issues Discussed: Suicide/ homicide prevention, past psychiatric h/o, current psychiatric symptoms, medical problems, risk/benefits and alternatives of medications, medications compliance, coping strategies, substance abuse h/o, relapse prevention, importance of follow up with psychiatrist and therapist, discharge plan. Medical Problems: Please see medical team notes for more detailed information Diagnostic Results: 04/25/18 07:30 04/25/18 07:30 Lab Results 04/25/18 07:30: Sodium 138, Potassium 4.2, Chloride 103, Carbon Dioxide 26, Anion Gap 14, BUN 7, Creatinine 0.4 L, Est GFR ( Amer) > 60, Est GFR (Non-Af Amer) > 60, Random Glucose 158 H, Calcium 8.7, Magnesium 1.5 L, Total Bilirubin 0.2, AST 15, ALT 23, Alkaline Phosphatase 71, Total Protein 7.0, Albumin 3.6, Globulin 3.4, Albumin/Globulin Ratio 1.1 04/25/18 07:30: WBC 10.6, RBC 3.89, Hgb 11.0 L, Hct 33.5 L, MCV 86.1, MCH 28.3, MCHC 32.8, RDW 16.4 H, Plt Count 318, MPV 8.5 04/24/18 07:00: RPR Nonreactive 04/24/18 07:00: Free T4 0.99, TSH 3rd Generation 4.48 04/24/18 07:00: Fasting Glucose 147 H, Triglycerides 130, Cholesterol 163, LDL Cholesterol Direct 127, HDL Cholesterol 29 04/23/18 13:20: Alcohol, Quantitative < 10 04/23/18 13:20: Salicylates < 1 L, Acetaminophen < 10.0 L 04/23/18 13:20: Sodium 137, Potassium 4.1, Chloride 100, Carbon Dioxide 25, Anion Gap 15, BUN 9, Creatinine 0.5 L, Est GFR ( Amer) > 60, Est GFR (Non-Af Amer) > 60, Random Glucose 199 H, Calcium 9.2, Magnesium 1.4 L, Total Bilirubin 0.2, AST 25, ALT 16, Alkaline Phosphatase 83, Total Protein 7.4, Albumin 3.9, Globulin 3.4, Albumin/Globulin Ratio 1.2 04/23/18 13:20: WBC 10.6, RBC 3.97, Hgb 11.4 L, Hct 34.2 L, MCV 86.1, MCH 28.7, MCHC 33.3, RDW 16.3 H, Plt Count 331, MPV 8.8, Gran % 57.9, Lymph % (Auto) 27.1, [place] % (Auto) 10.7 H, Eos % (Auto) 4.0, Baso % (Auto) 0.3, Gran # 6.15, Lymph # (Auto) 2.9, [place] # (Auto) 1.1 H, Eos # (Auto) 0.4, Baso # (Auto) 0.03 04/23/18 12:44: Urine Opiates Screen Negative, Urine Methadone Screen Negative, Ur Barbiturates Screen Negative, Ur Phencyclidine Scrn Negative, Ur Amphetamines Screen Negative, U Benzodiazepines Scrn Negative, U Oth Cocaine Metabols Negative, U Cannabinoids Screen Negative 04/23/18 12:44: Urine Color Yellow, Urine Appearance Clear, Urine pH 6.5, Ur Specific [place] 1.015, Urine Protein Negative, Urine Glucose (UA) 250 H, Urine Ketones 15 H, Urine Blood Negative, Urine Nitrate Negative, Urine Bilirubin Negative, Urine Urobilinogen 0.2, Ur Leukocyte Esterase Negative, Urine HCG, Qual Negative Vital Signs Temp Pulse Resp BP Pulse Ox 04/25/18 08:40 114/79 04/25/18 07:00 98.6 F 79 20 114/79 04/24/18 16:00 90 125/81 04/24/18 09:30 140/101 H 04/24/18 07:07 98.0 F 83 20 140/101 H 04/23/18 23:36 97.4 F L 20 135/87 04/23/18 17:41 98.1 F 72 18 130/89 98 04/23/18 15:07 98.8 F 95 H 18 128/85 97 DSM 5 Symptoms Update: Shortly patient is a 42-year old -[place] female with a 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, patient under care of PACT team, patient came to the hospital looking for help for her psychotic symptoms, patient reported that she is sees "ghosts, devils and demons", patient had expressed suicidal ideation with a plan to cut her wrists, patient was not able to contract for safety in the emergency room, required further evaluation and stabilization and observation. Patient was seen at the treatment team meeting, patient presented to be superficial, disorganized, but no aggression or agitation. Patient reported that now she feels better, "I want to be discharged before Alejo". As per collateral information from the staff patient is seclusive, sleeps all day long, not interacting with others. Patient was visited by PACT team today. All medications resumed, patient tolerates medications well, denied side effects, none observed. Patient reported that she has lab work every month for Clozaril. Aims 0, no EPS. Impression: Schizophrenia versus schizoaffective, treatment resistant. Medication Change: No (resumed) Medical Record Reviewed: Yes Consults ordered or reviewed: Medical consult appreciated Mental Status Examination - Cognitive Function Orientation: Person, Place, Situation, Time Memory: Intact Attention: Poor Concentration: Poor Association: Loose Fund of Knowledge: Poor - Mood Mood: Depressed - Affect Affect: Flat - Formal Thought Process Formal Thought Process: Hallucinations, Other (Disorganized thought process) - Suicidal Ideation Suicidal Ideation: No - Homicidal Ideation Homicidal Ideation: No Goal/Treatment Plan - Goal/Treatment Plan Need for Continued Stay: Remain at risks for inpatient hospitalization, Severe depression anxiety, Discharge may exacerbated symptoms, Severe functional impairment Progress Toward Problem(s) and Goals/Treatment Plan: Milieu/structure/supportive therapy Medical consult appreciated, see medical team note for more detailed info SW consultation for discharge plan and social issues Med management amLODIPine [Norvasc] 10 mg PO DAILY Aspirin [Aspirin Chewable] 81 mg PO DAILY Atorvastatin [Lipitor] 20 mg PO DIN Benztropine [Cogentin] 1 mg PO BID and HS cloZAPine [Clozaril] 100 mg PO AMHS bid for psychosis Clozapine [Clozapine Odt] 200 mg PO HS for psychosis haldol dec 100mg last dose was 04/23/18 for psychosis Divalproex [Depakote DR] 500 mg PO BID mood stabilization MetFORMIN [glucoPHAGE] 1,000 mg PO BID PARoxetine [Paxil] 20 mg PO DAILY for depression and anxiety SITagliptin [Januvia] 50 mg PO DAILY traZODone [Desyrel] 50 mg PO HS for depression and insomnia Family involvement Follow up on labs Will monitor closely Pt was educated about risk/benefits and alternatives of medications, coping strategies (safety plan, suicide prevention), relapse prevention, importance of follow up with psychiatrist and therapist, stay away from drugs/alcohol/smoking Estimated Date of D/C: 04/30/18
[2018-04-26] MEDS: Divalproex 500 mg DR(BID formulation) PO SCH ×2 (09:38→16:35)
--- NOTE | 2018-04-26 12:50 | PN ---
DATE: 04/26/2018 SUBJECTIVE: I saw Gato actually in her room and she is standing, she is walking around. She is smiling. She is feeling better. She is going to go for breakfast. CURRENT MEDICATIONS: She is on aspirin, Clozaril, Cogentin, Depakote, Desyrel, Glucophage, Haldol, Januvia, Lipitor, Maalox, milk of magnesia, Norvasc, Paxil and Tylenol. PHYSICAL EXAMINATION: VITAL SIGNS: She has a 99.1 temperature, 76 pulse, 120/82 blood pressure, 20 respiratory rate. HEAD: Atraumatic, normocephalic. She is smiling at me and comfortable. HEART: Regular rate. LUNGS: Decreased breath sounds but clear. ABDOMEN: Soft, nontender. Positive bowel sounds. Obese. EXTREMITIES: No edema. LABORATORY DATA: Last labs on 04/25/2018 that she did well. Blood sugar was 158. TSH was 4.48. Urine was clean. Toxicology was clean. Serology was RPR nonreactive. ASSESSMENT AND PLAN: She is being seen by Psychiatry, they are adjusting her medications. She is here for suicidal ideation, depression, hypertension and cholesterol, diabetes, schizophrenia and seizure history. Hopefully she will do well. I encouraged her to participate, take the medications, eat food and hopefully she will. She smiled at me and I do think this is the start of an improvement. Jason Contreras DO
--- NOTE | 2018-04-26 16:00 | PCM.PYCHPN ---
Psychiatric Progress Note - Psychiatric Progress Note Patient seen today, length of contact: 30 minutes Patient Chief Complaint: "I am okay " Problems Identified/Issues Discussed: Suicide/ homicide prevention, past psychiatric h/o, current psychiatric symptoms, medical problems, risk/benefits and alternatives of medications, medications compliance, coping strategies, substance abuse h/o, relapse prevention, importance of follow up with psychiatrist and therapist, discharge plan. Medical Problems: Please see medical team notes for more detailed information Diagnostic Results: 04/25/18 07:30 04/25/18 07:30 Lab Results 04/25/18 07:30: Sodium 138, Potassium 4.2, Chloride 103, Carbon Dioxide 26, Anion Gap 14, BUN 7, Creatinine 0.4 L, Est GFR ( Amer) > 60, Est GFR (Non-Af Amer) > 60, Random Glucose 158 H, Calcium 8.7, Magnesium 1.5 L, Total Bilirubin 0.2, AST 15, ALT 23, Alkaline Phosphatase 71, Total Protein 7.0, Alb umin 3.6, Globulin 3.4, Albumin/Globulin Ratio 1.1 04/25/18 07:30: WBC 10.6, RBC 3.89, Hgb 11.0 L, Hct 33.5 L, MCV 86.1, MCH 28.3, MCHC 32.8, RDW 16.4 H, Plt Count 318, MPV 8.5 04/24/18 07:00: RPR Nonreactive 04/24/18 07:00: Free T4 0.99, TSH 3rd Generation 4.48 04/24/18 07:00: Fasting Glucose 147 H, Triglycerides 130, Cholesterol 163, LDL Cholesterol Direct 127, HDL Cholesterol 29 04/23/18 13:20: Alcohol, Quantitative < 10 04/23/18 13:20: Salicylates < 1 L, Acetaminophen < 10.0 L 04/23/18 13:20: Sodium 137, Potassium 4.1, Chloride 100, Carbon Dioxide 25, Anion Gap 15, BUN 9, Creatinine 0.5 L, Est GFR ( Amer) > 60, Est GFR (Non-Af Amer) > 60, Random Glucose 199 H, Calcium 9.2, Magnesium 1.4 L, Total Bilirubin 0.2, AST 25, ALT 16, Alkaline Phosphatase 83, Total Protein 7.4, Albumin 3.9, Globulin 3.4, Albumin/Globulin Ratio 1.2 04/23/18 13:20: WBC 10.6, RBC 3.97, Hgb 11.4 L, Hct 34.2 L, MCV 86.1, MCH 28.7, MCHC 33.3, RDW 16.3 H, Plt Count 331, MPV 8.8, Gran % 57.9, Lymph % (Auto) 27.1, [place] % (Auto) 10.7 H, Eos % (Auto) 4.0, Baso % (Auto) 0.3, Gran # 6.15, Lymph # (Auto) 2.9, [place] # (Auto) 1.1 H, Eos # (Auto) 0.4, Baso # (Auto) 0.03 04/23/18 12:44: Urine Opiates Screen Negative, Urine Methadone Screen Negative, Ur Barbiturates Screen Negative, Ur Phencyclidine Scrn Negative, Ur Amphetamines Screen Negative, U Benzodiazepines Scrn Negative, U Oth Cocaine Metabols Negative, U Cannabinoids Screen Negative 04/23/18 12:44: Urine Color Yellow, Urine Appearance Clear, Urine pH 6.5, Ur Specific [place] 1.015, Urine Protein Negative, Urine Glucose (UA) 250 H, Urine Ketones 15 H, Urine Blood Negative, Urine Nitrate Negative, Urine Bilirubin Negative, Urine Urobilinogen 0.2, Ur Leukocyte Esterase Negative, Urine HCG, Qual Negative Vital Signs Temp Pulse Resp BP Pulse Ox 04/25/18 08:40 114/79 04/25/18 07:00 98.6 F 79 20 114/79 04/24/18 16:00 90 125/81 04/24/18 09:30 140/101 H 04/24/18 07:07 98.0 F 83 20 140/101 H 04/23/18 23:36 97.4 F L 20 135/87 04/23/18 17:41 98.1 F 72 18 130/89 98 04/23/18 15:07 98.8 F 95 H 18 128/85 97 DSM 5 Symptoms Update: Shortly patient is a 42-year old -[place] female with a long and debilitating history of treatment resistant schizophrenia, multiple admissions to the psychiatric inpatient unit including [facility], patient under care of PACT team, patient came to the hospital looking for help for her psychotic symptoms, patient reported that she is sees "ghosts, devils and demons", patient had expressed suicidal ideation with a plan to cut her wrists, patient was not able to contract for safety in the emergency room, required further evaluation and stabilization and observation. Patient was seen at the treatment team meeting, patient presented to be superficial, disorganized, but no aggression or agitation. Patient reported that now she feels better, "I want to be discharged before Alejo", pt has erotomanic delusions, but this admission pt was not bringing "" into conversation. As per collateral information from the staff patient is more alert today, started to go to the groups. Patient was visited by PACT team 04/25/2018 All medications resumed, patient tolerates medications well, denied side effects, none observed. Patient reported that she has lab work every month for Clozaril. Aims 0, no EPS. Impression: Schizophrenia versus schizoaffective, treatment resistant. Medication Change: No (resumed) Medical Record Reviewed: Yes Mental Status Examination - Cognitive Function Orientation: Person, Place, Situation, Time Memory: Intact Attention: Poor Concentration: Poor Association: Loose Fund of Knowledge: Poor - Mood Mood: Depressed - Affect Affect: Flat - Formal Thought Process Formal Thought Process: Hallucinations, Other (Disorganized thought process) - Suicidal Ideation Suicidal Ideation: No - Homicidal Ideation Homicidal Ideation: No Goal/Treatment Plan - Goal/Treatment Plan Need for Continued Stay: Remain at risks for inpatient hospitalization, Severe depression anxiety, Discharge may exacerbated symptoms, Severe functional impairment Progress Toward Problem(s) and Goals/Treatment Plan: Milieu/structure/supportive therapy Medical consult appreciated, see medical team note for more detailed info SW consultation for discharge plan and social issues Med management amLODIPine [Norvasc] 10 mg PO DAILY Aspirin [Aspirin Chewable] 81 mg PO DAILY Atorvastatin [Lipitor] 20 mg PO DIN Benztropine [Cogentin] 1 mg PO BID and HS cloZAPine [Clozaril] 100 mg PO AMHS bid for psychosis Clozapine [Clozapine Odt] 200 mg PO HS for psychosis haldol dec 100mg last dose was 04/23/18 for psychosis Divalproex [Depakote DR] 500 mg PO BID mood stabilization MetFORMIN [glucoPHAGE] 1,000 mg PO BID PARoxetine [Paxil] 20 mg PO DAILY for depression and anxiety SITagliptin [Januvia] 50 mg PO DAILY traZODone [Desyrel] 50 mg PO HS for depression and insomnia Family involvement Follow up on labs Will monitor closely Pt was educated about risk/benefits and alternatives of medications, coping strategies (safety plan, suicide prevention), relapse prevention, importance of follow up with psychiatrist and therapist, stay away from drugs/alcohol/smoking Estimated Date of D/C: 04/30/18
[2018-04-27] MEDS: Divalproex 500 mg DR(BID formulation) PO SCH ×2 (08:48→16:16)
--- NOTE | 2018-04-27 12:58 | PN ---
DATE: 04/27/2018 SUBJECTIVE: I saw her in her room. She is resting comfortably. She is on aspirin, Clozaril, Cogentin, Depakote, Desyrel, Glucophage, Haldol, Januvia, Lipitor, Maalox, milk of magnesia, Norvasc, Paxil and Tylenol. Overall, she has slight improvement with the medication. PHYSICAL EXAMINATION: VITAL SIGNS: She has a 99 temperature, 75 pulse, 112/76 blood pressure, 20 respiratory rate. HEAD: Atraumatic, normocephalic. HEART: Regular rate. LUNGS: Clear to auscultation. ABDOMEN: Soft, obese, nontender. EXTREMITIES: No edema. LABORATORY DATA: She has a 10.6 white count, 11 hemoglobin on the 12th which was good. Chemistry was good also on the 12th. Last blood sugar was 155. Urine was clean. Toxicology and serology were clean. ASSESSMENT AND PLAN: We will continue with aggressive treatment and care as per Psychiatry. She is here for schizophrenia, seizures, suicidal ideation, depression, hypertension, high cholesterol, and diabetes. We will follow. Jason Contreras DO
--- NOTE | 2018-04-27 16:24 | PCM.PYCHPN ---
Psychiatric Progress Note - Psychiatric Progress Note Patient seen today, length of contact: 30 minutes Patient Chief Complaint: "I am okay " Problems Identified/Issues Discussed: Suicide/ homicide prevention, past psychiatric h/o, current psychiatric symptoms, medical problems, risk/benefits and alternatives of medications, medications compliance, coping strategies, substance abuse h/o, relapse prevention, importance of follow up with psychiatrist and therapist, discharge plan. Medical Problems: Please see medical team notes for more detailed information Diagnostic Results: 04/25/18 07:30 04/25/18 07:30 Lab Results 04/25/18 07:30: Sodium 138, Potassium 4.2, Chloride 103, Carbon Dioxide 26, Anion Gap 14, BUN 7, Creatinine 0.4 L, Est GFR ( Amer) > 60, Est GFR (Non-Af Amer) > 60, Random Glucose 158 H, Calcium 8.7, Magnesium 1.5 L, Total Bilirubin 0.2, AST 15, ALT 23, Alkaline Phosphatase 71, Total Protein 7.0, Alb umin 3.6, Globulin 3.4, Albumin/Globulin Ratio 1.1 04/25/18 07:30: WBC 10.6, RBC 3.89, Hgb 11.0 L, Hct 33.5 L, MCV 86.1, MCH 28.3, MCHC 32.8, RDW 16.4 H, Plt Count 318, MPV 8.5 04/24/18 07:00: RPR Nonreactive 04/24/18 07:00: Free T4 0.99, TSH 3rd Generation 4.48 04/24/18 07:00: Fasting Glucose 147 H, Triglycerides 130, Cholesterol 163, LDL Cholesterol Direct 127, HDL Cholesterol 29 04/23/18 13:20: Alcohol, Quantitative < 10 04/23/18 13:20: Salicylates < 1 L, Acetaminophen < 10.0 L 04/23/18 13:20: Sodium 137, Potassium 4.1, Chloride 100, Carbon Dioxide 25, Anion Gap 15, BUN 9, Creatinine 0.5 L, Est GFR ( Amer) > 60, Est GFR (Non-Af Amer) > 60, Random Glucose 199 H, Calcium 9.2, Magnesium 1.4 L, Total Bilirubin 0.2, AST 25, ALT 16, Alkaline Phosphatase 83, Total Protein 7.4, Albumin 3.9, Globulin 3.4, Albumin/Globulin Ratio 1.2 04/23/18 13:20: WBC 10.6, RBC 3.97, Hgb 11.4 L, Hct 34.2 L, MCV 86.1, MCH 28.7, MCHC 33.3, RDW 16.3 H, Plt Count 331, MPV 8.8, Gran % 57.9, Lymph % (Auto) 27.1, [place] % (Auto) 10.7 H, Eos % (Auto) 4.0, Baso % (Auto) 0.3, Gran # 6.15, Lymph # (Auto) 2.9, [place] # (Auto) 1.1 H, Eos # (Auto) 0.4, Baso # (Auto) 0.03 04/23/18 12:44: Urine Opiates Screen Negative, Urine Methadone Screen Negative, Ur Barbiturates Screen Negative, Ur Phencyclidine Scrn Negative, Ur Amphetamines Screen Negative, U Benzodiazepines Scrn Negative, U Oth Cocaine Metabols Negative, U Cannabinoids Screen Negative 04/23/18 12:44: Urine Color Yellow, Urine Appearance Clear, Urine pH 6.5, Ur Specific [place] 1.015, Urine Protein Negative, Urine Glucose (UA) 250 H, Urine Ketones 15 H, Urine Blood Negative, Urine Nitrate Negative, Urine Bilirubin Negative, Urine Urobilinogen 0.2, Ur Leukocyte Esterase Negative, Urine HCG, Qual Negative Vital Signs Temp Pulse Resp BP Pulse Ox 04/25/18 08:40 114/79 04/25/18 07:00 98.6 F 79 20 114/79 04/24/18 16:00 90 125/81 04/24/18 09:30 140/101 H 04/24/18 07:07 98.0 F 83 20 140/101 H 04/23/18 23:36 97.4 F L 20 135/87 04/23/18 17:41 98.1 F 72 18 130/89 98 04/23/18 15:07 98.8 F 95 H 18 128/85 97 DSM 5 Symptoms Update: Shortly patient is a 42-year old -[place] female with a long and debilitating history of treatment resistant schizophrenia, multiple admissions to the psychiatric inpatient unit including [facility], patient under care of PACT team, patient came to the hospital looking for help for her psychotic symptoms, patient reported that she is sees "ghosts, devils and demons", patient had expressed suicidal ideation with a plan to cut her wrists, patient was not able to contract for safety in the emergency room, required further evaluation and stabilization and observation. Patient was seen at the treatment team meeting, patient presented to be superficial, disorganized, but no aggression or agitation, pt started to be seclusive, sleepy, not interested to go to the groups. which is usual pt's pattern. So far no agitation or aggression, patient is superficially pleasant, today was observed talking and laughing to herself. Patient was visited by PACT team 04/25/2018 All medications resumed, patient tolerates medications well, denied side effects, none observed. Patient reported that she has lab work every month for Clozaril. Aims 0, no EPS. Impression: Schizophrenia versus schizoaffective, treatment resistant. Medication Change: No ( ) Medical Record Reviewed: Yes Mental Status Examination - Cognitive Function Orientation: Person, Place, Situation, Time Memory: Intact Attention: Poor Concentration: Poor Association: Loose Fund of Knowledge: Poor - Mood Mood: Depressed - Affect Affect: Flat - Formal Thought Process Formal Thought Process: Hallucinations, Other (Disorganized thought process) - Suicidal Ideation Suicidal Ideation: No - Homicidal Ideation Homicidal Ideation: No Goal/Treatment Plan - Goal/Treatment Plan Need for Continued Stay: Remain at risks for inpatient hospitalization, Severe depression anxiety, Discharge may exacerbated symptoms, Severe functional impairment Progress Toward Problem(s) and Goals/Treatment Plan: Milieu/structure/supportive therapy Medical consult appreciated, see medical team note for more detailed info SW consultation for discharge plan and social issues Med management amLODIPine [Norvasc] 10 mg PO DAILY Aspirin [Aspirin Chewable] 81 mg PO DAILY Atorvastatin [Lipitor] 20 mg PO DIN Benztropine [Cogentin] 1 mg PO BID and HS cloZAPine [Clozaril] 100 mg PO AMHS bid for psychosis Clozapine [Clozapine Odt] 200 mg PO HS for psychosis haldol dec 100mg last dose was 04/23/18 for psychosis Divalproex [Depakote DR] 500 mg PO BID mood stabilization MetFORMIN [glucoPHAGE] 1,000 mg PO BID PARoxetine [Paxil] 20 mg PO DAILY for depression and anxiety SITagliptin [Januvia] 50 mg PO DAILY traZODone [Desyrel] 50 mg PO HS for depression and insomnia Family involvement Follow up on labs Will monitor closely Pt was educated about risk/benefits and alternatives of medications, coping strategies (safety plan, suicide prevention), relapse prevention, importance of follow up with psychiatrist and therapist, stay away from drugs/alcohol/smoking Estimated Date of D/C: 04/30/18
[2018-04-28] MEDS: Divalproex 500 mg DR(BID formulation) PO SCH ×2 (08:45→16:52)
--- NOTE | 2018-04-28 09:49 | PCM.PYCHPN ---
Psychiatric Progress Note - Psychiatric Progress Note Patient seen today, length of contact: 30 minutes Problems Identified/Issues Discussed: I reviewed assessment and recent notes. I am very familiar with patient from her numerous psychiatric admissions to this unit. I meet with her at bedside. She is superficially bright and cooperative though initially difficult to rouse from sleep. Patient denies any new concerns and indicates that she is feeling better. She denies recurrence of hallucinations or suicidal thoughts. Patient doesn't appear to be overtly bizarre or actively responding to internal stimuli though she is internally preoccupied. Has been eating and sleeping well. Nursing notes also indicates that patient has been in good control and generally pleasant on the unit. Smiles to herself and sometimes interacts with other patients per staff notes. Appearance is kempt and patient is getting less oddly related as the admission progresses. As usual there have been no behavioral issues on the unit. Diagnostic Results: Schizoaffective Disorder, treatment resistant Medication Change: No ( ) Medical Record Reviewed: Yes Mental Status Examination - Cognitive Function Orientation: Person, Place, Situation, Time Memory: Intact Attention: WNL Concentration: Poor Association: Loose Fund of Knowledge: Poor - Mood Mood: Depressed (better) - Affect Affect: Flat - Formal Thought Process Formal Thought Process: Hallucinations (denied), Other (Disorganized thought process-improved focus) - Suicidal Ideation Suicidal Ideation: No - Homicidal Ideation Homicidal Ideation: No Goal/Treatment Plan - Goal/Treatment Plan Need for Continued Stay: Remain at risks for inpatient hospitalization, Severe depression anxiety, Discharge may exacerbated symptoms, Severe functional impairment Progress Toward Problem(s) and Goals/Treatment Plan: * c/w current tx and plan * Vitals reviewed and noted below: 04/27/18 04/27/18 04/27/18 07:06 08:47 16:00 Temperature 99.0 F Pulse Rate 75 82 Respiratory 20 Rate Blood Pressure 112/76 112/76 99/62 L * No new weekend lab results noted thus far Estimated Date of D/C: 04/30/18
--- NOTE | 2018-04-28 11:53 | PN ---
DATE: 04/28/2018 SUBJECTIVE: I saw her resting comfortably in bed. She ate breakfast today. She is in good mood. She is trying to get better. She is participating. No chest pain or shortness of breath. No abdominal pain. She is smiling at me and talking a little bit, but she is tired. MEDICATIONS: She is on aspirin, Clozaril, Cogentin, Depakote, Desyrel, Glucophage, Haldol is on hold, Januvia, Lipitor, Maalox, milk of magnesia, Norvasc, Paxil, Tylenol. PHYSICAL EXAMINATION: VITAL SIGNS: She has a 96.8 temperature, 74 pulse, 120/78 blood pressure, 20 respiratory rate. HEAD: Atraumatic, normocephalic. HEART: Regular rate. LUNGS: Clear to auscultation. ABDOMEN: Soft, obese, nontender. EXTREMITIES: No edema. ASSESSMENT AND PLAN: She is here for suicidal ideation, depression, hypertension, high cholesterol, diabetes, schizophrenia, and seizures. I think she is starting to get a little bit better, as per Psychiatry. Last blood sugar was 200. I will do another blood test tomorrow. We will continue with aggressive treatment and psychiatric care. Jason Contreras DO
[2018-04-29 08:04] LABS: HEMOGLOBIN 11.6 g/dL (12.0-16.0); MEAN CELL VOLUME 85.3 fl (80.0-105.0); MEAN CORPUSCULAR HGB CONC 32.9 g/dl (31.0-37.0); MEAN PLATELET VOLUME 8.5 fl (7.0-11.0); RBC 4.14 10^6/uL (3.5-6.1); WHITE BLOOD COUNT 12.4 10^3/uL (4.5-11.0)
[2018-04-29 08:45] LABS: ALBUMIN 3.7 g/dL (3.0-4.8); ALT/SGPT 19 U/L (7-56); AST/SGOT 25 U/L (14-36); BLOOD UREA NITROGEN 9 mg/dL (7-21); CALCIUM 8.7 mg/dL (8.4-10.5); GFR NON-AFRICAN AMERICAN > 60
[2018-04-29] MEDS: Divalproex 500 mg DR(BID formulation) PO SCH ×2 (09:05→17:20)
--- NOTE | 2018-04-29 10:02 | PCM.PYCHPN ---
Psychiatric Progress Note - Psychiatric Progress Note Patient seen today, length of contact: 30 minutes Problems Identified/Issues Discussed: I reviewed recent notes and met with patient at bedside again. I am very familiar with patient from her numerous psychiatric admissions to this unit. She remains superficial and denies any new concerns. Patient indicates that she is feeling better. She denies recurrence of hallucinations or suicidal thoughts. Patient doesn't appear to be overtly bizarre or actively responding to internal stimuli though she is internally preoccupied. Has been eating and sleeping well. Nursing notes also indicates that patient has been in good control and generally pleasant on the unit. Smiles to herself and sometimes interacts with other patients per staff notes. Appearance is kempt and patient is getting less oddly related as the admission progresses. As usual there have been no behavioral issues on the unit. Diagnostic Results: Schizoaffective Disorder, treatment resistant Medication Change: No ( ) Medical Record Reviewed: Yes Mental Status Examination - Cognitive Function Orientation: Person, Place, Situation, Time Memory: Intact Attention: WNL Concentration: Poor Association: Loose Fund of Knowledge: Poor - Mood Mood: Depressed (better) - Affect Affect: Flat - Formal Thought Process Formal Thought Process: Hallucinations (denied all weekend), Other (Disorganized thought process-improved focus) - Suicidal Ideation Suicidal Ideation: No - Homicidal Ideation Homicidal Ideation: No Goal/Treatment Plan - Goal/Treatment Plan Need for Continued Stay: Remain at risks for inpatient hospitalization, Severe depression anxiety, Discharge may exacerbated symptoms, Severe functional impairment Progress Toward Problem(s) and Goals/Treatment Plan: * c/w current tx and plan * Vitals reviewed and noted below: Selected Entries 04/28/18 07:00 Temperature 96.8 F L Pulse Rate 74 Respiratory 20 Rate Blood Pressure 120/78 * Appreciate f/u by Dr. Contreras on 04/28/18~recommended another set of labs, results are noted below: Laboratory Results - last 24 hr 04/28/18 04/28/18 04/28/18 07:27 10:59 15:49 WBC RBC Hgb Hct MCV MCH MCHC RDW Plt Count MPV Sodium Potassium Chloride Carbon Dioxide Anion Gap BUN Creatinine Est GFR ( Amer) Est GFR (Non-Af Amer) POC Glucose (mg/dL) 184 H 309 H 142 H Random Glucose Calcium Total Bilirubin AST ALT Alkaline Phosphatase Total Protein Albumin Globulin Albumin/Globulin Ratio 04/29/18 04/29/18 07:30 07:30 WBC 12.4 H RBC 4.14 Hgb 11.6 L Hct 35.3 L MCV 85.3 MCH 28.0 MCHC 32.9 RDW 16.0 H Plt Count 337 MPV 8.5 Sodium 135 Potassium 4.2 Chloride 102 Carbon Dioxide 24 Anion Gap 13 BUN 9 Creatinine 0.4 L Est GFR ( Amer) > 60 Est GFR (Non-Af Amer) > 60 POC Glucose (mg/dL) Random Glucose 148 H Calcium 8.7 Total Bilirubin 0.2 AST 25 ALT 19 Alkaline Phosphatase 76 Total Protein 7.2 Albumin 3.7 Globulin 3.5 Albumin/Globulin Ratio 1.0 L Estimated Date of D/C: 04/30/18
--- NOTE | 2018-04-29 15:32 | PN ---
DATE: 04/29/2018 SUBJECTIVE: I saw her in the psychiatric room. She is resting. She is sleeping fairly well. She is in fairly good spirits. She is on aspirin, Clozaril, Cogentin, Depakote, Desyrel, Glucophage, Haldol, Januvia, Lipitor, Maalox, milk of magnesia, Norvasc, Paxil and Tylenol. PHYSICAL EXAMINATION: GENERAL: She is alert. She is talking to me. She is telling me she is feeling well. VITAL SIGNS: She has a 96.8 temp, 74 pulse, 120/78 blood pressure, 20 respiratory rate. HEENT: Head is atraumatic, normocephalic. HEART: Regular rate. LUNGS: Decreased breath sounds, but clear. ABDOMEN: Soft, obese, nontender. EXTREMITIES: No edema. LABORATORY DATA: She has a 12.4 white count; not sure why pumped up a little bit, 11.6 hemoglobin, 35.3 hematocrit, 337 platelets. She has a 135 sodium, potassium 4.2, BUN 9, creatinine 0.4, GFR greater than 60, sugar is 148, calcium is 8.7, total bili is 0.2, AST is 25, ALT is 19, alk phos 76, total protein 7.2. ASSESSMENT AND PLAN: She is being seen by Psychiatry. I am going to repeat a urinalysis on her and repeat the labs tomorrow. I am not sure why she is having an elevated white count versus a reaction to the new psychiatric medications. We will see which way she is going. She is here for suicidal ideation, depression, hypertension, high cholesterol, diabetes, schizophrenia, seizures, and now leukocytosis. Jason Contreras DO
[2018-04-29 22:55] LABS: URINE BILIRUBIN NEGATIVE (NEGATIVE); URINE BLOOD NEGATIVE (NEGATIVE); URINE GLUCOSE (UA) 100 mg/dL (NEGATIVE); URINE LEUKOCYTE ESTERASE NEGATIVE Leu/uL (NEGATIVE); URINE PROTEIN NEGATIVE mg/dL (<30 mg/dL); URINE UROBILINOGEN 0.2 E.U./dL (<1 E.U./dL)
[2018-04-29 22:56] LABS: URINE APPEARANCE CLEAR (CLEAR); URINE COLOR LIGHT YELLOW (YELLOW)
[2018-04-30 07:49] LABS: HEMOGLOBIN 11.5 g/dL (12.0-16.0); MEAN CELL VOLUME 85.4 fl (80.0-105.0); MEAN CORPUSCULAR HEMOGLOBIN 28.4 pg (25.0-35.0); MEAN CORPUSCULAR HGB CONC 33.2 g/dl (31.0-37.0); MEAN PLATELET VOLUME 8.6 fl (7.0-11.0); RBC 4.05 10^6/uL (3.5-6.1); RED CELL DISTRIBUTION WIDTH 16.2 % (11.5-14.5); WHITE BLOOD COUNT 13.1 10^3/uL (4.5-11.0)
[2018-04-30 08:02] LABS: ALB/GLOB RATIO 1.1 (1.1-1.8); ALBUMIN 3.7 g/dL (3.0-4.8); ALT/SGPT 21 U/L (7-56); AST/SGOT 20 U/L (14-36); BLOOD UREA NITROGEN 9 mg/dL (7-21); CALCIUM 8.9 mg/dL (8.4-10.5); GFR NON-AFRICAN AMERICAN > 60
[2018-04-30] MEDS: Divalproex 500 mg DR(BID formulation) PO SCH ×2 (09:52→17:49)
--- NOTE | 2018-04-30 10:17 | CP.PCM.CON ---
<ChristinSarai - Last Filed: 04/30/18 13:52> History of Present Illness - History of Present Illness History of Present Illness: PGY-[address] Whitt ID: high WBC Ms Garces, 42 AAF, admitted for depression and suicidal ideation. She tried to cut herself but did not do it. She denies any open skin wounds. She started to have mild runny nose yesterday. She is here since 04/23. Her WBC trends up from 10.6 to 12.4 to 13.1. VSS. CXR (04/23) clear EKG NSR Urine has 250 sugar Urine culture was collected 04/29 ROS: Denies fever/chills, skin rash, congestion, headache, sore throat, SOB, dysuria, abd pain/n/v/d/c PMD Contreras PMH Schizophrenia, anxiety, depression HTN/HLD DM (last A1C December 2017) Seizure on depakote Anemia PSH Denies FH NC SH Former smoker, no drugs/etoh All NKDA med See MAR Past Patient History - Infectious Disease Hx of Infectious Diseases: None - Tetanus Immunizations Tetanus Immunization: Unknown - Past Medical History & Family History Past Medical History?: No - Past Social History Smoking Status: Former Smoker - CARDIAC Hx Hypertension: Yes - NEUROLOGICAL Hx Seizures: Yes - HEENT Hx HEENT Problems: No - RENAL Hx Chronic Kidney Disease: No - ENDOCRINE/METABOLIC Hx Endocrine Disorders: Yes Hx Diabetes Mellitus Type 2: Yes - HEMATOLOGICAL/ONCOLOGICAL Hx Anemia: Yes - INTEGUMENTARY Hx Dermatological Problems: No - MUSCULOSKELETAL/RHEUMATOLOGICAL Hx Musculoskeletal Disorders: No - GASTROINTESTINAL Hx Gastrointestinal Disorders: No - GENITOURINARY/GYNECOLOGICAL Hx Genitourinary Disorders: No Hx Sexually Transmitted Disorders: No - PSYCHIATRIC Hx Bipolar Disorder: Yes Hx Schizophrenia: Yes Hx Substance Use: No - SURGICAL HISTORY Hx Surgeries: No - ANESTHESIA Hx Anesthesia: No Hx Anesthesia Reactions: No Hx Malignant Hyperthermia: No Meds Allergies/Adverse Reactions: Allergies Allergy/AdvReac Type Severity Reaction Status Date / Time No Known Allergies Allergy Verified 04/23/18 18:24 - Medications Medications: Current Medications Acetaminophen (Tylenol 325mg Tab) 650 mg PO Q6H PRN PRN Reason: Pain, moderate (4-7) Al Hydrox/Mg Hydrox/Simethicone (Maalox Plus 30 Ml) 30 ml PO DAILY PRN PRN Reason: Indigestion / Heartburn Amlodipine Besylate (Norvasc) 10 mg PO DAILY [facility] Last Admin: 04/30/18 09:51 Dose: 10 mg Aspirin (Aspirin Chewable) 81 mg PO DAILY [facility] Last Admin: 04/30/18 09:51 Dose: 81 mg Atorvastatin Calcium (Lipitor) 20 mg PO DIN [facility] Last Admin: 04/29/18 17:21 Dose: 20 mg Benztropine Mesylate (Cogentin) 1 mg PO BID [facility] Last Admin: 04/30/18 09:52 Dose: 1 mg Clozapine (Clozaril) 200 mg PO HS [facility]; Protocol Last Admin: 04/29/18 21:16 Dose: 200 mg Clozapine (Clozaril) 100 mg PO BID [facility]; Protocol Last Admin: 04/30/18 09:50 Dose: 100 mg Divalproex Sodium (Depakote Dr(*Bid*)) 500 mg PO BID [facility] Last Admin: 04/30/18 09:52 Dose: 500 mg Haloperidol (Haldol) 5 mg PO HS [facility]; Protocol Last Admin: 04/29/18 21:17 Dose: 5 mg Magnesium Hydroxide (Milk Of Magnesia) 30 ml PO DAILY PRN PRN Reason: Constipation Metformin HCl (Glucophage) 1,000 mg PO BID [facility] Last Admin: 04/30/18 09:51 Dose: 1,000 mg Paroxetine HCl (Paxil) 20 mg PO DAILY [facility] Last Admin: 04/30/18 09:51 Dose: 20 mg Sitagliptin Phosphate (Januvia) 50 mg PO DAILY [facility] Last Admin: 04/30/18 09:52 Dose: 50 mg Trazodone HCl (Desyrel) 50 mg PO HS [facility] Last Admin: 04/29/18 21:17 Dose: 50 mg Physical Exam - Constitutional Appears: No Acute Distress - Head Exam Head Exam: ATRAUMATIC, NORMAL INSPECTION, NORMOCEPHALIC - Eye Exam Eye Exam: EOMI, Normal appearance, PERRL. absent: Scleral icterus Pupil Exam: NORMAL ACCOMODATION - ENT Exam ENT Exam: Mucous Membranes Dry, Normal Oropharynx - Neck Exam Neck exam: Positive for: Full Rom - Respiratory Exam Respiratory Exam: Clear to Auscultation Bilateral, NORMAL BREATHING PATTERN. absent: Rhonchi, Wheezes - Cardiovascular Exam Cardiovascular Exam: REGULAR RHYTHM, +S1, +S2. absent: Systolic Murmur - GI/Abdominal Exam GI & Abdominal Exam: Normal Bowel Sounds, Soft. absent: Distended, Firm, Guarding, Rigid, Tenderness - Extremities Exam Extremities exam: Positive for: normal inspection. Negative for: calf tenderness, pedal edema - Back Exam Back exam: absent: CVA tenderness (L), CVA tenderness (R) - Neurological Exam Neurological exam: Alert, Oriented x3 - Psychiatric Exam Psychiatric exam: Flat Affect, Normal Mood - Skin Skin Exam: Dry, Normal Color Results - Vital Signs Recent Vital Signs: Last Vital Signs Temp 98.1 F 04/30/18 06:42 Pulse 88 04/30/18 06:42 Resp 20 04/30/18 06:42 BP 118/79 04/30/18 09:51 Pulse Ox 98 04/23/18 17:41 - Labs Result Diagrams: 04/30/18 07:30 04/30/18 07:30 Labs: Laboratory Results - last 24 hr 04/29/18 04/29/18 04/29/18 07:15 11:19 16:01 WBC RBC Hgb Hct MCV MCH MCHC RDW Plt Count MPV Sodium Potassium Chloride Carbon Dioxide Anion Gap BUN Creatinine Est GFR ( Amer) Est GFR (Non-Af Amer) POC Glucose (mg/dL) 159 H 155 H 133 H Random Glucose Calcium Total Bilirubin AST ALT Alkaline Phosphatase Total Protein Albumin Globulin Albumin/Globulin Ratio Urine Color Urine Appearance Urine pH Ur Specific [place] Urine Protein Urine Glucose (UA) Urine Ketones Urine Blood Urine Nitrate Urine Bilirubin Urine Urobilinogen Ur Leukocyte Esterase 04/29/18 04/29/18 04/30/18 21:21 22:00 07:14 WBC RBC Hgb Hct MCV MCH MCHC RDW Plt Count MPV Sodium Potassium Chloride Carbon Dioxide Anion Gap BUN Creatinine Est GFR ( Amer) Est GFR (Non-Af Amer) POC Glucose (mg/dL) 227 H 162 H Random Glucose Calcium Total Bilirubin AST ALT Alkaline Phosphatase Total Protein Albumin Globulin Albumin/Globulin Ratio Urine Color Light yellow Urine Appearance Clear Urine pH 6.0 Ur Specific [place] 1.010 Urine Protein Negative Urine Glucose (UA) 100 H Urine Ketones 15 H Urine Blood Negative Urine Nitrate Negative Urine Bilirubin Negative Urine Urobilinogen 0.2 Ur Leukocyte Esterase Negative 04/30/18 04/30/18 07:30 07:30 WBC 13.1 H RBC 4.05 Hgb 11.5 L Hct 34.6 L MCV 85.4 MCH 28.4 MCHC 33.2 RDW 16.2 H Plt Count 321 MPV 8.6 Sodium 137 Potassium 4.4 Chloride 103 Carbon Dioxide 25 Anion Gap 13 BUN 9 Creatinine 0.4 L Est GFR ( Amer) > 60 Est GFR (Non-Af Amer) > 60 POC Glucose (mg/dL) Random Glucose 158 H Calcium 8.9 Total Bilirubin 0.2 AST 20 ALT 21 Alkaline Phosphatase 72 Total Protein 7.1 Albumin 3.7 Globulin 3.4 Albumin/Globulin Ratio 1.1 Urine Color Urine Appearance Urine pH Ur Specific [place] Urine Protein Urine Glucose (UA) Urine Ketones Urine Blood Urine Nitrate Urine Bilirubin Urine Urobilinogen Ur Leukocyte Esterase Assessment & Plan - Assessment and Plan (Free Text) Plan: Leukocytosis (SIRS 1/4) likely reactive to viral upper respiratory infection vs sinus allergy Diabetes (A1C December 2017) Seizure on depakote Schizophrenia, anxity, depression - supportive care. May consider loratidine prn for rhinorrhea - observe off antibiotics - continue to trend WBC and follow clinical course - follow on urine culture. Asymptomactic. U/A negative - follow on blood culture s/r/d/w Dr. Whitt <Michelet Whitt S - Last Filed: 04/30/18 14:11> Meds - Medications Medications: Current Medications Acetaminophen (Tylenol 325mg Tab) 650 mg PO Q6H PRN PRN Reason: Pain, moderate (4-7) Al Hydrox/Mg Hydrox/Simethicone (Maalox Plus 30 Ml) 30 ml PO DAILY PRN PRN Reason: Indigestion / Heartburn Amlodipine Besylate (Norvasc) 10 mg PO DAILY [facility] Last Admin: 04/30/18 09:51 Dose: 10 mg Aspirin (Aspirin Chewable) 81 mg PO DAILY [facility] Last Admin: 04/30/18 09:51 Dose: 81 mg Atorvastatin Calcium (Lipitor) 20 mg PO DIN [facility] Last Admin: 04/29/18 17:21 Dose: 20 mg Benztropine Mesylate (Cogentin) 1 mg PO BID [facility] Last Admin: 04/30/18 09:52 Dose: 1 mg Clozapine (Clozaril) 200 mg PO HS [facility]; Protocol Last Admin: 04/29/18 21:16 Dose: 200 mg Clozapine (Clozaril) 100 mg PO BID [facility]; Protocol Last Admin: 04/30/18 09:50 Dose: 100 mg Divalproex Sodium (Depakote Dr(*Bid*)) 500 mg PO BID [facility] Last Admin: 04/30/18 09:52 Dose: 500 mg Haloperidol (Haldol) 5 mg PO HS [facility]; Protocol Last Admin: 04/29/18 21:17 Dose: 5 mg Magnesium Hydroxide (Milk Of Magnesia) 30 ml PO DAILY PRN PRN Reason: Constipation Metformin HCl (Glucophage) 1,000 mg PO BID [facility] Last Admin: 04/30/18 09:51 Dose: 1,000 mg Paroxetine HCl (Paxil) 20 mg PO DAILY [facility] Last Admin: 04/30/18 09:51 Dose: 20 mg Sitagliptin Phosphate (Januvia) 50 mg PO DAILY [facility] Last Admin: 04/30/18 09:52 Dose: 50 mg Trazodone HCl (Desyrel) 50 mg PO [facility] Last Admin: 04/29/18 21:17 Dose: 50 mg Results - Vital Signs Recent Vital Signs: Last Vital Signs Temp 98.1 F 04/30/18 06:42 Pulse 88 04/30/18 06:42 Resp 20 04/30/18 06:42 BP 118/79 04/30/18 09:51 Pulse Ox 98 04/23/18 17:41 - Labs Result Diagrams: 04/30/18 07:30 04/30/18 07:30 Labs: Laboratory Results - last 24 hr 04/29/18 04/29/18 04/29/18 07:15 11:19 16:01 WBC RBC Hgb Hct MCV MCH MCHC RDW Plt Count MPV Gran % Lymph % (Auto) Gage % (Auto) Eos % (Auto) Baso % (Auto) Gran # Lymph # (Auto) Gage # (Auto) Eos # (Auto) Baso # (Auto) Sodium Potassium Chloride Carbon Dioxide Anion Gap BUN Creatinine Est GFR ( Amer) Est GFR (Non-Af Amer) POC Glucose (mg/dL) 159 H 155 H 133 H Random Glucose Calcium Total Bilirubin AST ALT Alkaline Phosphatase Total Protein Albumin Globulin Albumin/Globulin Ratio Urine Color Urine Appearance Urine pH Ur Specific [place] Urine Protein Urine Glucose (UA) Urine Ketones Urine Blood Urine Nitrate Urine Bilirubin Urine Urobilinogen Ur Leukocyte Esterase 12/04/29/18 04/30/18 21:21 22:00 07:14 WBC RBC Hgb Hct MCV MCH MCHC RDW Plt Count MPV Gran % Lymph % (Auto) Gage % (Auto) Eos % (Auto) Baso % (Auto) Gran # Lymph # (Auto) Gage # (Auto) Eos # (Auto) Baso # (Auto) Sodium Potassium Chloride Carbon Dioxide Anion Gap BUN Creatinine Est GFR ( Amer) Est GFR (Non-Af Amer) POC Glucose (mg/dL) 227 H 162 H Random Glucose Calcium Total Bilirubin AST ALT Alkaline Phosphatase Total Protein Albumin Globulin Albumin/Globulin Ratio Urine Color Light yellow Urine Appearance Clear Urine pH 6.0 Ur Specific [place] 1.010 Urine Protein Negative Urine Glucose (UA) 100 H Urine Ketones 15 H Urine Blood Negative Urine Nitrate Negative Urine Bilirubin Negative Urine Urobilinogen 0.2 Ur Leukocyte Esterase Negative 04/30/18 04/30/18 07:30 07:30 WBC 13.1 H RBC 4.05 Hgb 11.5 L Hct 34.6 L MCV 85.4 MCH 28.4 MCHC 33.2 RDW 16.2 H Plt Count 321 MPV 8.6 Gran % 42.4 L Lymph % (Auto) 44.3 H Gage % (Auto) 7.7 H Eos % (Auto) 5.2 H Baso % (Auto) 0.4 Gran # 5.50 Lymph # (Auto) 5.7 H Gage # (Auto) 1.0 H Eos # (Auto) 0.7 Baso # (Auto) 0.05 Sodium 137 Potassium 4.4 Chloride 103 Carbon Dioxide 25 Anion Gap 13 BUN 9 Creatinine 0.4 L Est GFR ( Amer) > 60 Est GFR (Non-Af Amer) > 60 POC Glucose (mg/dL) Random Glucose 158 H Calcium 8.9 Total Bilirubin 0.2 AST 20 ALT 21 Alkaline Phosphatase 72 Total Protein 7.1 Albumin 3.7 Globulin 3.4 Albumin/Globulin Ratio 1.1 Urine Color Urine Appearance Urine pH Ur Specific [place] Urine Protein Urine Glucose (UA) Urine Ketones Urine Blood Urine Nitrate Urine Bilirubin Urine Urobilinogen Ur Leukocyte Esterase Assessment & Plan - Assessment and Plan (Free Text) Plan: Infectious diseases Attending Physician Attestation Patient seen and examined, discussed with vp medical. I have reviewed the patient's history of present illness, past medical, social, personal and family histories, pertinent physical exam findings, course so far in this hospital admission, pertinent laboratory and imaging results. I agree with the above findings, assessment and plan. In addition, will get blood and urine cx, CXR for leukocytosis, etiology not clear.
[2018-04-30 10:18] LABS: BASO # 0.05 K/mm3 (0.0-2.0); BASO % 0.4 % (0.0-3.0); EOS # 0.7 (0.0-0.7); EOS % 5.2 % (1.5-5.0); GRAN # 5.5 (1.4-6.5); GRAN % 42.4 % (50.0-68.0); LYMPH # 5.7 (1.2-3.4); LYMPH % 44.3 % (22.0-35.0); MONO % 7.7 % (1.0-6.0)
--- NOTE | 2018-04-30 12:28 | PN ---
DATE: 04/30/2018 SUBJECTIVE: I saw her in the psychiatric floor, sleeping in bed, easily arousable. She feels better. She is eating well, participating, in good spirits. MEDICATIONS: On aspirin, Clozaril, Cogentin, Depakote, Desyrel, Glucophage, Haldol, Januvia, Lipitor, Maalox, milk of magnesia, Norvasc, Paxil, Tylenol. PHYSICAL EXAMINATION: VITAL SIGNS: 98.1 temperature, 88 pulse, 118/79 blood pressure, 20 respiratory rate. HEAD: Atraumatic, normocephalic. HEART: Regular rate. LUNGS: Decreased breath sounds, but clear. ABDOMEN: Soft, obese, nontender. EXTREMITIES: No edema. LABORATORY DATA: She has a 13.1 white count, it is going up, 11.5 hemoglobin, 34.6 hematocrit with 321 platelets. She has 137 sodium, potassium 4.4, BUN 9, creatinine 0.4, GFR is greater than 60, sugar is 138, calcium is 8.9, total bili is 0.2. AST is 20, ALT is 21, alk phos 72, total protein 7.1. ASSESSMENT AND PLAN: Her urine was clean for the second time. I am not sure why her white count is coming up medication related. I will consult Dr. Whitt, Infectious Disease for his opinion and hopefully she will do well. I will check her labs again tomorrow. Jason Contreras DO MTDD
--- NOTE | 2018-04-30 16:25 | PCM.PYCHPN ---
Psychiatric Progress Note - Psychiatric Progress Note Patient seen today, length of contact: 30 minutes Patient Chief Complaint: " do you think I need to change my PACT team?" Problems Identified/Issues Discussed: Suicide/ homicide prevention, past psychiatric h/o, current psychiatric symptoms, medical problems, risk/benefits and alternatives of medications, medications compliance, coping strategies, substance abuse h/o, relapse prevention, importance of follow up with psychiatrist and therapist, discharge plan. Medical Problems: Please see medical team notes for more detailed information Diagnostic Results: 04/25/18 07:30 04/25/18 07:30 Lab Results 04/25/18 07:30: Sodium 138, Potassium 4.2, Chloride 103, Carbon Dioxide 26, Anion Gap 14, BUN 7, Creatinine 0.4 L, Est GFR ( Amer) > 60, Est GFR (Non-Af Amer) > 60, Random Glucose 158 H, Calcium 8.7, Magnesium 1.5 L, Total Bilirubin 0.2, AST 15, ALT 23, Alkaline Phosphatase 71, Total Protein 7.0, Albumin 3.6, Globulin 3.4, Albumin/Globulin Ratio 1.1 04/25/18 07:30: WBC 10.6, RBC 3.89, Hgb 11.0 L, Hct 33.5 L, MCV 86.1, MCH 28.3, MCHC 32.8, RDW 16.4 H, Plt Count 318, MPV 8.5 04/24/18 07:00: RPR Nonreactive 04/24/18 07:00: Free T4 0.99, TSH 3rd Generation 4.48 04/24/18 07:00: Fasting Glucose 147 H, Triglycerides 130, Cholesterol 163, LDL Cholesterol Direct 127, HDL Cholesterol 29 04/23/18 13:20: Alcohol, Quantitative < 10 04/23/18 13:20: Salicylates < 1 L, Acetaminophen < 10.0 L 04/23/18 13:20: Sodium 137, Potassium 4.1, Chloride 100, Carbon Dioxide 25, Anion Gap 15, BUN 9, Creatinine 0.5 L, Est GFR ( Amer) > 60, Est GFR (Non-Af Amer) > 60, Random Glucose 199 H, Calcium 9.2, Magnesium 1.4 L, Total Bilirubin 0.2, AST 25, ALT 16, Alkaline Phosphatase 83, Total Protein 7.4, Albumin 3.9, Globulin 3.4, Albumin/Globulin Ratio 1.2 04/23/18 13:20: WBC 10.6, RBC 3.97, Hgb 11.4 L, Hct 34.2 L, MCV 86.1, MCH 28.7, MCHC 33.3, RDW 16.3 H, Plt Count 331, MPV 8.8, Gran % 57.9, Lymph % (Auto) 27.1, Mccone % (Auto) 10.7 H, Eos % (Auto) 4.0, Baso % (Auto) 0.3, Gran # 6.15, Lymph # (Auto) 2.9, Mccone # (Auto) 1.1 H, Eos # (Auto) 0.4, Baso # (Auto) 0.03 04/23/18 12:44: Urine Opiates Screen Negative, Urine Methadone Screen Negative, Ur Barbiturates Screen Negative, Ur Phencyclidine Scrn Negative, Ur Amphetamines Screen Negative, U Benzodiazepines Scrn Negative, U Oth Cocaine Metabols Negative, U Cannabinoids Screen Negative 04/23/18 12:44: Urine Color Yellow, Urine Appearance Clear, Urine pH 6.5, Ur Specific [place] 1.015, Urine Protein Negative, Urine Glucose (UA) 250 H, Urine Ketones 15 H, Urine Blood Negative, Urine Nitrate Negative, Urine Bilirubin Negative, Urine Urobilinogen 0.2, Ur Leukocyte Esterase Negative, Urine HCG, Qual Negative Vital Signs Temp Pulse Resp BP Pulse Ox 04/25/18 08:40 114/79 04/25/18 07:00 98.6 F 79 20 114/79 04/24/18 16:00 90 125/81 04/24/18 09:30 140/101 H 04/24/18 07:07 98.0 F 83 20 140/101 H 04/23/18 23:36 97.4 F L 20 135/87 04/23/18 17:41 98.1 F 72 18 130/89 98 04/23/18 15:07 98.8 F 95 H 18 128/85 97 Laboratory Results - last 24 hr 04/29/18 04/29/18 04/29/18 07:15 11:19 16:01 WBC RBC Hgb Hct MCV MCH MCHC RDW Plt Count MPV Gran % Lymph % (Auto) Mccone % (Auto) Eos % (Auto) Baso % (Auto) Gran # Lymph # (Auto) Mccone # (Auto) Eos # (Auto) Baso # (Auto) Sodium Potassium Chloride Carbon Dioxide Anion Gap BUN Creatinine Est GFR ( Amer) Est GFR (Non-Af Amer) POC Glucose (mg/dL) 159 H 155 H 133 H Random Glucose Calcium Total Bilirubin AST ALT Alkaline Phosphatase Total Protein Albumin Globulin Albumin/Globulin Ratio Urine Color Urine Appearance Urine pH Ur Specific [place] Urine Protein Urine Glucose (UA) Urine Ketones Urine Blood Urine Nitrate Urine Bilirubin Urine Urobilinogen Ur Leukocyte Esterase 04/29/18 04/29/18 04/30/18 21:21 22:00 07:14 WBC RBC Hgb Hct MCV MCH MCHC RDW Plt Count MPV Gran % Lymph % (Auto) Mccone % (Auto) Eos % (Auto) Baso % (Auto) Gran # Lymph # (Auto) Mccone # (Auto) Eos # (Auto) Baso # (Auto) Sodium Potassium Chloride Carbon Dioxide Anion Gap BUN Creatinine Est GFR ( Amer) Est GFR (Non-Af Amer) POC Glucose (mg/dL) 227 H 162 H Random Glucose Calcium Total Bilirubin AST ALT Alkaline Phosphatase Total Protein Albumin Globulin Albumin/Globulin Ratio Urine Color Light yellow Urine Appearance Clear Urine pH 6.0 Ur Specific [place] 1.010 Urine Protein Negative Urine Glucose (UA) 100 H Urine Ketones 15 H Urine Blood Negative Urine Nitrate Negative Urine Bilirubin Negative Urine Urobilinogen 0.2 Ur Leukocyte Esterase Negative 04/30/18 04/30/18 07:30 07:30 WBC 13.1 H RBC 4.05 Hgb 11.5 L Hct 34.6 L MCV 85.4 MCH 28.4 MCHC 33.2 RDW 16.2 H Plt Count 321 MPV 8.6 Gran % 42.4 L Lymph % (Auto) 44.3 H Mccone % (Auto) 7.7 H Eos % (Auto) 5.2 H Baso % (Auto) 0.4 Gran # 5.50 Lymph # (Auto) 5.7 H Mccone # (Auto) 1.0 H Eos # (Auto) 0.7 Baso # (Auto) 0.05 Sodium 137 Potassium 4.4 Chloride 103 Carbon Dioxide 25 Anion Gap 13 BUN 9 Creatinine 0.4 L Est GFR ( Amer) > 60 Est GFR (Non-Af Amer) > 60 POC Glucose (mg/dL) Random Glucose 158 H Calcium 8.9 Total Bilirubin 0.2 AST 20 ALT 21 Alkaline Phosphatase 72 Total Protein 7.1 Albumin 3.7 Globulin 3.4 Albumin/Globulin Ratio 1.1 Urine Color Urine Appearance Urine pH Ur Specific [place] Urine Protein Urine Glucose (UA) Urine Ketones Urine Blood Urine Nitrate Urine Bilirubin Urine Urobilinogen Ur Leukocyte Esterase DSM 5 Symptoms Update: Shortly patient is a 42-year old -[place] female with a 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 Patient was seen at the hallway, pt still disorganized, asking if she needs to change her PACT team, pt was advised to follow with them pt changed her mind said "I am happy with my PACT, thank you doctor so very much", pt had WBC elevated ID is consulted, will hold d/c today. discussed with PMD today. over the weekend patient presented to be superficial, disorganized, but no aggression or agitation Patient was visited by PACT team 04/25/2018 All medications resumed, patient tolerates medications well, denied side effects, none observed. Patient reported that she has lab work every month for Clozaril. Aims 0, no EPS. Impression: Schizophrenia versus schizoaffective, treatment resistant. Medication Change: No ( ) Medical Record Reviewed: Yes Consults ordered or reviewed: Medical consult appreciated ID consulted Mental Status Examination - Cognitive Function Orientation: Person, Place, Situation, Time Memory: Intact Attention: WNL Concentration: Poor Association: Loose Fund of Knowledge: Poor - Mood Mood: Depressed (better) - Affect Affect: Flat - Formal Thought Process Formal Thought Process: Hallucinations (denied all weekend), Other (Disorganized thought process-improved focus) - Suicidal Ideation Suicidal Ideation: No - Homicidal Ideation Homicidal Ideation: No Goal/Treatment Plan - Goal/Treatment Plan Need for Continued Stay: Remain at risks for inpatient hospitalization, Severe depression anxiety, Discharge may exacerbated symptoms, Severe functional impa irment Progress Toward Problem(s) and Goals/Treatment Plan: Milieu/structure/supportive therapy Medical consult appreciated, see medical team note for more detailed info ID consulted for WBC elevation SW consultation for discharge plan and social issues Med management amLODIPine [Norvasc] 10 mg PO DAILY Aspirin [Aspirin Chewable] 81 mg PO DAILY Atorvastatin [Lipitor] 20 mg PO DIN Benztropine [Cogentin] 1 mg PO BID and HS cloZAPine [Clozaril] 100 mg PO AMHS bid for psychosis Clozapine [Clozapine Odt] 200 mg PO HS for psychosis haldol dec 100mg last dose was 04/23/18 for psychosis Divalproex [Depakote DR] 500 mg PO BID mood stabilization MetFORMIN [glucoPHAGE] 1,000 mg PO BID PARoxetine [Paxil] 20 mg PO DAILY for depression and anxiety SITagliptin [Januvia] 50 mg PO DAILY traZODone [Desyrel] 50 mg PO HS for depression and insomnia Family involvement Follow up on labs Will monitor closely Pt was educated about risk/benefits and alternatives of medications, coping strategies (safety plan, suicide prevention), relapse prevention, importance of follow up with psychiatrist and therapist, stay away from drugs/alcohol/smoking Estimated Date of D/C: 05/02/18
--- NOTE | 2018-05-01 07:29 | CP.PCM.PN ---
<Sarai Waller - Last Filed: 05/01/18 13:02> Subjective - Date & Time of Evaluation Date of Evaluation: 05/01/18 Time of Evaluation: 07:29 - Subjective Subjective: ID progress note PGY-[address] Whitt Pt seen in bed. Denies runny nose, YATES, F/C, CP, SOB, N/V/D/C, dysuria Objective - Vital Signs/Intake and Output Vital Signs (last 24 hours): Temp Pulse Resp BP Pulse Ox 98.5 F 74 18 114/75 98 05/01/18 06:32 05/01/18 06:32 05/01/18 06:32 05/01/18 06:32 04/23/18 17:41 - Medications Medications: Current Medications Acetaminophen (Tylenol 325mg Tab) 650 mg PO Q6H PRN PRN Reason: Pain, moderate (4-7) Al Hydrox/Mg Hydrox/Simethicone (Maalox Plus 30 Ml) 30 ml PO DAILY PRN PRN Reason: Indigestion / Heartburn Amlodipine Besylate (Norvasc) 10 mg PO DAILY [facility] Last Admin: 04/30/18 09:51 Dose: 10 mg Aspirin (Aspirin Chewable) 81 mg PO DAILY [facility] Last Admin: 04/30/18 09:51 Dose: 81 mg Atorvastatin Calcium (Lipitor) 20 mg PO DIN [facility] Last Admin: 04/30/18 17:48 Dose: 20 mg Benztropine Mesylate (Cogentin) 1 mg PO BID [facility] Last Admin: 04/30/18 17:49 Dose: 1 mg Clozapine (Clozaril) 200 mg PO HS [facility]; Protocol Last Admin: 04/30/18 21:01 Dose: 200 mg Clozapine (Clozaril) 100 mg PO BID [facility]; Protocol Last Admin: 04/30/18 17:49 Dose: 100 mg Divalproex Sodium (Depakote Dr(*Bid*)) 500 mg PO BID [facility] Last Admin: 04/30/18 17:49 Dose: 500 mg Haloperidol (Haldol) 5 mg PO HS [facility]; Protocol Last Admin: 04/30/18 21:02 Dose: 5 mg Magnesium Hydroxide (Milk Of Magnesia) 30 ml PO DAILY PRN PRN Reason: Constipation Metformin HCl (Glucophage) 1,000 mg PO BID [facility] Last Admin: 12/17/18 17:49 Dose: 1,000 mg Paroxetine HCl (Paxil) 20 mg PO DAILY [facility] Last Admin: 04/30/18 09:51 Dose: 20 mg Sitagliptin Phosphate (Januvia) 50 mg PO DAILY [facility] Last Admin: 04/30/18 09:52 Dose: 50 mg Trazodone HCl (Desyrel) 50 mg PO HS [facility] Last Admin: 04/30/18 21:02 Dose: 50 mg - Labs Labs: 04/30/18 07:30 04/30/18 07:30 - Constitutional Appears: No Acute Distress - Head Exam Head Exam: ATRAUMATIC, NORMAL INSPECTION, NORMOCEPHALIC - Eye Exam Eye Exam: EOMI, Normal appearance, PERRL. absent: Scleral icterus Pupil Exam: NORMAL ACCOMODATION - ENT Exam ENT Exam: Mucous Membranes Moist - Neck Exam Additional comments: supple - Respiratory Exam Respiratory Exam: Clear to Ausculation Bilateral, NORMAL BREATHING PATTERN. absent: Rales, Rhonchi, Wheezes - Cardiovascular Exam Cardiovascular Exam: REGULAR RHYTHM, +S1, +S2 - GI/Abdominal Exam GI & Abdominal Exam: Soft, Normal Bowel Sounds. absent: Guarding, Rigid, Tenderness, Organomegaly, Rebound - Extremities Exam Extremities Exam: absent: Calf Tenderness - Back Exam Back Exam: absent: CVA tenderness (L), CVA tenderness (R) Additional comments: no suprapubic tendernss - Neurological Exam Neurological Exam: Alert, Awake, Oriented x3 - Psychiatric Exam Psychiatric exam: Normal Affect, Normal Mood - Skin Skin Exam: Dry, Warm Assessment and Plan - Assessment and Plan (Free Text) Plan: Ms Garces, 42F, admitted to psych on 04/23 for depreesion and suicidal ideation. ID was consulted for WBC 13.1. Today is 12.8 Leukocytosis (SIRS 1/4) Etiology not clear. likely reactive to viral upper respiratory infection vs sinus allergy Diabetes (A1C December 2017) Seizure on depakote Schizophrenia, anxity, depression - pending CXR today. - Admission CXR (04/23) no change from prior - supportive care. May consider loratidine prn for rhinorrhea - observe off antibiotics - continue to trend WBC and follow clinical course - Urine culture negative. Asymptomatic - follow on blood culture outpatient with Dr. Contreras Disposition plan: No evidence of infection. Observe off antibiotics for now. After discharge, pt should follow with PMD re: blood culture s/r/d/w Dr Whitt <Michelet Whitt S - Last Filed: 05/01/18 16:28> Objective - Vital Signs/Intake and Output Vital Signs (last 24 hours): Temp Pulse Resp BP Pulse Ox 98.5 F 74 18 114/75 98 05/01/18 06:32 05/01/18 06:32 05/01/18 06:32 05/01/18 09:36 04/23/18 17:41 - Medications Medications: Current Medications Acetaminophen (Tylenol 325mg Tab) 650 mg PO Q6H PRN PRN Reason: Pain, moderate (4-7) Al Hydrox/Mg Hydrox/Simethicone (Maalox Plus 30 Ml) 30 ml PO DAILY PRN PRN Reason: Indigestion / Heartburn Amlodipine Besylate (Norvasc) 10 mg PO DAILY [facility] Last Admin: 05/01/18 09:36 Dose: 10 mg Aspirin (Aspirin Chewable) 81 mg PO DAILY [facility] Last Admin: 05/01/18 09:36 Dose: 81 mg Atorvastatin Calcium (Lipitor) 20 mg PO DIN [facility] Last Admin: 04/30/18 17:48 Dose: 20 mg Benztropine Mesylate (Cogentin) 1 mg PO BID [facility] Last Admin: 05/01/18 09:36 Dose: 1 mg Clozapine (Clozaril) 200 mg PO HS [facility]; Protocol Last Admin: 04/30/18 21:01 Dose: 200 mg Clozapine (Clozaril) 100 mg PO BID [facility]; Protocol Last Admin: 05/01/18 10:33 Dose: 100 mg Divalproex Sodium (Depakote Dr(*Bid*)) 500 mg PO BID [facility] Last Admin: 05/01/18 09:37 Dose: 500 mg Haloperidol (Haldol) 5 mg PO HS [facility]; Protocol Last Admin: 04/30/18 21:02 Dose: 5 mg Magnesium Hydroxide (Milk Of Magnesia) 30 ml PO DAILY PRN PRN Reason: Constipation Metformin HCl (Glucophage) 1,000 mg PO BID [facility] Last Admin: 05/01/18 09:36 Dose: 1,000 mg Paroxetine HCl (Paxil) 20 mg PO DAILY [facility] Last Admin: 05/01/18 09:36 Dose: 20 mg Sitagliptin Phosphate (Januvia) 50 mg PO DAILY [facility] Last Admin: 12/18/18 09:36 Dose: 50 mg Trazodone HCl (Desyrel) 50 mg PO HS [facility] Last Admin: 04/30/18 21:02 Dose: 50 mg - Labs Labs: 05/01/18 07:30 05/01/18 07:30 Assessment and Plan - Assessment and Plan (Free Text) Plan: Infectious diseases Attending Physician Attestation Patient seen and examined, discussed with medical billing associate. I have reviewed the patient's history of present illness, past medical, social, personal and family histories, pertinent physical exam findings, course so far in this hospital admission, pertinent laboratory and imaging results. I agree with the above findings, assessment and plan. I
[2018-05-01 07:41] LABS: HEMOGLOBIN 11.5 g/dL (12.0-16.0); MEAN CELL VOLUME 85.2 fl (80.0-105.0); MEAN CORPUSCULAR HEMOGLOBIN 27.9 pg (25.0-35.0); MEAN CORPUSCULAR HGB CONC 32.8 g/dl (31.0-37.0); MEAN PLATELET VOLUME 8.8 fl (7.0-11.0); RBC 4.12 10^6/uL (3.5-6.1); RED CELL DISTRIBUTION WIDTH 16.3 % (11.5-14.5); WHITE BLOOD COUNT 12.8 10^3/uL (4.5-11.0)
[2018-05-01 08:01] LABS: ALB/GLOB RATIO 1.1 (1.1-1.8); ALBUMIN 3.8 g/dL (3.0-4.8); ALT/SGPT 18 U/L (7-56); AST/SGOT 16 U/L (14-36); BLOOD UREA NITROGEN 7 mg/dL (7-21); CALCIUM 9.1 mg/dL (8.4-10.5); GFR NON-AFRICAN AMERICAN > 60
[2018-05-01] MEDS: Divalproex 500 mg DR(BID formulation) PO SCH ×2 (09:37→17:48)
--- NOTE | 2018-05-01 13:08 | PN ---
DATE: 05/01/2018 SUBJECTIVE: She is resting comfortably in bed. Psychiatry is happy with her. Mentally, she is doing better. They are trying to discharge her, however, worried about her white count. She has her cultures pending. She is on aspirin, Clozaril, Cogentin, Depakote, Desyrel, Glucophage, Januvia, Lipitor, Maalox, milk of magnesia, Norvasc, Paxil and Tylenol. PHYSICAL EXAMINATION: VITAL SIGNS: She has 98.5 temperature, 74 pulse, 114/75 blood pressure, 18 respiratory rate. HEAD: Atraumatic, normocephalic. HEART: Regular rate. LUNGS: Clear to auscultation. ABDOMEN: Soft, obese, nontender. EXTREMITIES: No edema. LABORATORY DATA: She has a 12.8 white count, it came down a little bit; 11.5 hemoglobin, 35.1 hematocrit with 332 platelets. She has 137 sodium, potassium 4.4, BUN 7, creatinine 0.4, GFR is greater than 60, sugar is 168, calcium is 9.1, total bilirubin is 0.2, AST is 16, ALT is 18, alk phos 71, total protein 7.3. Urine was clean. Toxicology clean. RPR is nonreactive. The micro showed no growth in the urine. I believe that blood culture is pending. ASSESSMENT AND PLAN: I believe we could probably discharge her and then follow up on the outpatient and see. If it is positive, we will give her a call. If it is negative we will leave her alone. She is stable and the white count came down a little bit, so I am happy with her being discharged today. Thank you for letting me participate in her care. Jason Contreras DO
--- NOTE | 2018-05-01 15:01 | PCM.PYCHPN ---
Psychiatric Progress Note - Psychiatric Progress Note Patient seen today, length of contact: 30 minutes Patient Chief Complaint: " I am okay " Problems Identified/Issues Discussed: Suicide/ homicide prevention, past psychiatric h/o, current psychiatric symptoms, medical problems, risk/benefits and alternatives of medications, medications compliance, coping strategies, substance abuse h/o, relapse prevention, importance of follow up with psychiatrist and therapist, discharge plan. Medical Problems: Please see medical team notes for more detailed information Diagnostic Results: 04/25/18 07:30 04/25/18 07:30 Lab Results 04/25/18 07:30: Sodium 138, Potassium 4.2, Chloride 103, Carbon Dioxide 26, Anion Gap 14, BUN 7, Creatinine 0.4 L, Est GFR ( Amer) > 60, Est GFR (Non-Af Amer) > 60, Random Glucose 158 H, Calcium 8.7, Magnesium 1.5 L, Total Bilirubin 0.2, AST 15, ALT 23, Alkaline Phosphatase 71, Total Protein 7.0, Al bumin 3.6, Globulin 3.4, Albumin/Globulin Ratio 1.1 04/25/18 07:30: WBC 10.6, RBC 3.89, Hgb 11.0 L, Hct 33.5 L, MCV 86.1, MCH 28.3, MCHC 32.8, RDW 16.4 H, Plt Count 318, MPV 8.5 04/24/18 07:00: RPR Nonreactive 04/24/18 07:00: Free T4 0.99, TSH 3rd Generation 4.48 04/24/18 07:00: Fasting Glucose 147 H, Triglycerides 130, Cholesterol 163, LDL Cholesterol Direct 127, HDL Cholesterol 29 04/23/18 13:20: Alcohol, Quantitative < 10 04/23/18 13:20: Salicylates < 1 L, Acetaminophen < 10.0 L 04/23/18 13:20: Sodium 137, Potassium 4.1, Chloride 100, Carbon Dioxide 25, Anion Gap 15, BUN 9, Creatinine 0.5 L, Est GFR ( Amer) > 60, Est GFR (Non-Af Amer) > 60, Random Glucose 199 H, Calcium 9.2, Magnesium 1.4 L, Total Bilirubin 0.2, AST 25, ALT 16, Alkaline Phosphatase 83, Total Protein 7.4, Albumin 3.9, Globulin 3.4, Albumin/Globulin Ratio 1.2 04/23/18 13:20: WBC 10.6, RBC 3.97, Hgb 11.4 L, Hct 34.2 L, MCV 86.1, MCH 28.7, MCHC 33.3, RDW 16.3 H, Plt Count 331, MPV 8.8, Gran % 57.9, Lymph % (Auto) 27.1, [place] % (Auto) 10.7 H, Eos % (Auto) 4.0, Baso % (Auto) 0.3, Gran # 6.15, Lymph # (Auto) 2.9, [place] # (Auto) 1.1 H, Eos # (Auto) 0.4, Baso # (Auto) 0.03 04/23/18 12:44: Urine Opiates Screen Negative, Urine Methadone Screen Negative, Ur Barbiturates Screen Negative, Ur Phencyclidine Scrn Negative, Ur Amphetamines Screen Negative, U Benzodiazepines Scrn Negative, U Oth Cocaine Metabols Negative, U Cannabinoids Screen Negative 04/23/18 12:44: Urine Color Yellow, Urine Appearance Clear, Urine pH 6.5, Ur Specific [place] 1.015, Urine Protein Negative, Urine Glucose (UA) 250 H, Urine Ketones 15 H, Urine Blood Negative, Urine Nitrate Negative, Urine Bilirubin Negative, Urine Urobilinogen 0.2, Ur Leukocyte Esterase Negative, Urine HCG, Qual Negative Vital Signs Temp Pulse Resp BP Pulse Ox 04/25/18 08:40 114/79 04/25/18 07:00 98.6 F 79 20 114/79 04/24/18 16:00 90 125/81 04/24/18 09:30 140/101 H 04/24/18 07:07 98.0 F 83 20 140/101 H 04/23/18 23:36 97.4 F L 20 135/87 04/23/18 17:41 98.1 F 72 18 130/89 98 04/23/18 15:07 98.8 F 95 H 18 128/85 97 Laboratory Results - last 24 hr 04/29/18 04/29/18 04/29/18 07:15 11:19 16:01 WBC RBC Hgb Hct MCV MCH MCHC RDW Plt Count MPV Gran % Lymph % (Auto) Florence % (Auto) Eos % (Auto) Baso % (Auto) Gran # Lymph # (Auto) [place] # (Auto) Eos # (Auto) Baso # (Auto) Sodium Potassium Chloride Carbon Dioxide Anion Gap BUN Creatinine Est GFR ( Amer) Est GFR (Non-Af Amer) POC Glucose (mg/dL) 159 H 155 H 133 H Random Glucose Calcium Total Bilirubin AST ALT Alkaline Phosphatase Total Protein Albumin Globulin Albumin/Globulin Ratio Urine Color Urine Appearance Urine pH Ur Specific [place] Urine Protein Urine Glucose (UA) Urine Ketones Urine Blood Urine Nitrate Urine Bilirubin Urine Urobilinogen Ur Leukocyte Esterase 04/29/18 04/29/18 04/30/18 21:21 22:00 07:14 WBC RBC Hgb Hct MCV MCH MCHC RDW Plt Count MPV Gran % Lymph % (Auto) [place] % (Auto) Eos % (Auto) Baso % (Auto) Gran # Lymph # (Auto) [place] # (Auto) Eos # (Auto) Baso # (Auto) Sodium Potassium Chloride Carbon Dioxide Anion Gap BUN Creatinine Est GFR ( Amer) Est GFR (Non-Af Amer) POC Glucose (mg/dL) 227 H 162 H Random Glucose Calcium Total Bilirubin AST ALT Alkaline Phosphatase Total Protein Albumin Globulin Albumin/Globulin Ratio Urine Color Light yellow Urine Appearance Clear Urine pH 6.0 Ur Specific [place] 1.010 Urine Protein Negative Urine Glucose (UA) 100 H Urine Ketones 15 H Urine Blood Negative Urine Nitrate Negative Urine Bilirubin Negative Urine Urobilinogen 0.2 Ur Leukocyte Esterase Negative 04/30/18 04/30/18 07:30 07:30 WBC 13.1 H RBC 4.05 Hgb 11.5 L Hct 34.6 L MCV 85.4 MCH 28.4 MCHC 33.2 RDW 16.2 H Plt Count 321 MPV 8.6 Gran % 42.4 L Lymph % (Auto) 44.3 H Florence % (Auto) 7.7 H Eos % (Auto) 5.2 H Baso % (Auto) 0.4 Gran # 5.50 Lymph # (Auto) 5.7 H [place] # (Auto) 1.0 H Eos # (Auto) 0.7 Baso # (Auto) 0.05 Sodium 137 Potassium 4.4 Chloride 103 Carbon Dioxide 25 Anion Gap 13 BUN 9 Creatinine 0.4 L Est GFR ( Amer) > 60 Est GFR (Non-Af Amer) > 60 POC Glucose (mg/dL) Random Glucose 158 H Calcium 8.9 Total Bilirubin 0.2 AST 20 ALT 21 Alkaline Phosphatase 72 Total Protein 7.1 Albumin 3.7 Globulin 3.4 Albumin/Globulin Ratio 1.1 Urine Color Urine Appearance Urine pH Ur Specific [place] Urine Protein Urine Glucose (UA) Urine Ketones Urine Blood Urine Nitrate Urine Bilirubin Urine Urobilinogen Ur Leukocyte Esterase DSM 5 Symptoms Update: Shortly patient is a 42-year old -[place] female with a 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 Patient was seen at the hallway, pt still disorganized, but not agitated or aggressive, pt has WBC elevated, discussed with emergency medicine medical director, CXR was obtain ed, no result yet, d/c was postponed. later on discussed with Dr.Sison LEONARD, d/c will be tomorrow. called PACT, which agreed to take pt back. over the weekend patient presented to be superficial, disorganized, but no aggression or agitation Patient was visited by PACT team 04/25/2018 All medications resumed, patient tolerates medications well, denied side effects, none observed. Patient reported that she has lab work every month for Clozaril. Aims 0, no EPS. Impression: Schizophrenia versus schizoaffective, treatment resistant. Medication Change: No ( ) Medical Record Reviewed: Yes Consults ordered or reviewed: Medical consult appreciated ID consulted Mental Status Examination - Cognitive Function Orientation: Person, Place, Situation, Time Memory: Intact Attention: WNL Concentration: Poor (Baseline) Association: Loose (Baseline) Fund of Knowledge: Poor (Baseline) - Mood Mood: Depressed (better) - Affect Affect: Flat - Formal Thought Process Formal Thought Process: Hallucinations (denied all weekend), Other (Disorganized thought process-improved focus) - Suicidal Ideation Suicidal Ideation: No - Homicidal Ideation Homicidal Ideation: No Goal/Treatment Plan - Goal/Treatment Plan Need for Continued Stay: Remain at risks for inpatient hospitalization, Severe depression anxiety, Discharge may exacerbated symptoms, Severe functional impairment Progress Toward Problem(s) and Goals/Treatment Plan: Milieu/structure/supportive therapy Medical consult appreciated, see medical team note for more detailed info ID consulted for WBC elevation SW consultation for discharge plan and social issues Med management amLODIPine [Norvasc] 10 mg PO DAILY Aspirin [Aspirin Chewable] 81 mg PO DAILY Atorvastatin [Lipitor] 20 mg PO DIN Benztropine [Cogentin] 1 mg PO BID and HS cloZAPine [Clozaril] 100 mg PO AMHS bid for psychosis Clozapine [Clozapine Odt] 200 mg PO HS for psychosis haldol dec 100mg last dose was 04/23/18 for psychosis Divalproex [Depakote DR] 500 mg PO BID mood stabilization MetFORMIN [glucoPHAGE] 1,000 mg PO BID PARoxetine [Paxil] 20 mg PO DAILY for depression and anxiety SITagliptin [Januvia] 50 mg PO DAILY traZODone [Desyrel] 50 mg PO HS for depression and insomnia Family involvement Follow up on labs Will monitor closely Pt was educated about risk/benefits and alternatives of medications, coping strategies (safety plan, suicide prevention), relapse prevention, importance of follow up with psychiatrist and therapist, stay away from drugs/alcohol/smoking Estimated Date of D/C: 05/02/18
--- NOTE | 2018-05-01 15:45 | RAD ---
Date of service: 05/01/2018 HISTORY: WBC 13, upper resp sx, r/o pna COMPARISON: 04/23/2018 TECHNIQUE: Chest PA and lateral FINDINGS: LUNGS: No active pulmonary disease. PLEURA: No significant pleural effusion identified. No pneumothorax apparent. CARDIOVASCULAR: No aortic atherosclerotic calcification present. Normal cardiac size. No pulmonary vascular congestion. OSSEOUS STRUCTURES: No significant abnormalities. VISUALIZED UPPER ABDOMEN: Normal. OTHER FINDINGS: None. IMPRESSION: No active disease.
[2018-05-02 07:10] VITALS: BP 108/71; PULSE 75; RESP 20; TEMP 98.8
--- NOTE | 2018-05-02 07:46 | CP.PCM.PN ---
<ChristinDesmondSarai - Last Filed: 05/02/18 13:02> Subjective - Date & Time of Evaluation Date of Evaluation: 05/02/18 Time of Evaluation: 07:45 - Subjective Subjective: ID progress note PGY-[address] Whitt See pt in activity room. Pt denies runny nose, sore throat, cough, CP, dysuria or any discomfort. She is in good mood. no fever/chills Objective - Vital Signs/Intake and Output Vital Signs (last 24 hours): Temp Pulse Resp BP Pulse Ox 98.8 F 75 20 108/71 98 05/02/18 07:09 05/02/18 07:09 05/02/18 07:09 05/02/18 07:09 04/23/18 17:41 - Medications Medications: Current Medications Acetaminophen (Tylenol 325mg Tab) 650 mg PO Q6H PRN PRN Reason: Pain, moderate (4-7) Al Hydrox/Mg Hydrox/Simethicone (Maalox Plus 30 Ml) 30 ml PO DAILY PRN PRN Reason: Indigestion / Heartburn Amlodipine Besylate (Norvasc) 10 mg PO DAILY [facility] Last Admin: 05/01/18 09:36 Dose: 10 mg Aspirin (Aspirin Chewable) 81 mg PO DAILY [facility] Last Admin: 05/01/18 09:36 Dose: 81 mg Atorvastatin Calcium (Lipitor) 20 mg PO DIN [facility] Last Admin: 05/01/18 17:49 Dose: 20 mg Benztropine Mesylate (Cogentin) 1 mg PO BID [facility] Last Admin: 05/01/18 17:48 Dose: 1 mg Clozapine (Clozaril) 200 mg PO HS [facility]; Protocol Last Admin: 05/01/18 21:01 Dose: 200 mg Clozapine (Clozaril) 100 mg PO BID [facility]; Protocol Last Admin: 05/01/18 17:49 Dose: 100 mg Divalproex Sodium (Depakote Dr(*Bid*)) 500 mg PO BID [facility] Last Admin: 05/01/18 17:48 Dose: 500 mg Haloperidol (Haldol) 5 mg PO HS [facility]; Protocol Last Admin: 05/01/18 21:01 Dose: 5 mg Magnesium Hydroxide (Milk Of Magnesia) 30 ml PO DAILY PRN PRN Reason: Constipation Metformin HCl (Glucophage) 1,000 mg PO BID [facility] Last Admin: 05/01/18 17:48 Dose: 1,000 mg Paroxetine HCl (Paxil) 20 mg PO DAILY [facility] Last Admin: 05/01/18 09:36 Dose: 20 mg Sitagliptin Phosphate (Januvia) 50 mg PO DAILY [facility] Last Admin: 05/01/18 09:36 Dose: 50 mg Trazodone HCl (Desyrel) 50 mg PO HS [facility] Last Admin: 05/01/18 21:01 Dose: 50 mg - Labs Labs: 05/01/18 07:30 05/01/18 07:30 - Constitutional Appears: No Acute Distress - Head Exam Head Exam: ATRAUMATIC, NORMAL INSPECTION, NORMOCEPHALIC - Eye Exam Eye Exam: EOMI, Normal appearance, PERRL. absent: Scleral icterus - ENT Exam ENT Exam: Mucous Membranes Moist - Neck Exam Additional comments: supple - Respiratory Exam Respiratory Exam: Clear to Ausculation Bilateral, NORMAL BREATHING PATTERN. absent: Rales, Rhonchi, Wheezes - Cardiovascular Exam Cardiovascular Exam: REGULAR RHYTHM, +S1, +S2, Murmur (slight systolic) - GI/Abdominal Exam GI & Abdominal Exam: Soft, Normal Bowel Sounds. absent: Tenderness - Back Exam Back Exam: absent: CVA tenderness (L), CVA tenderness (R) - Neurological Exam Neurological Exam: Alert, Awake, Normal Gait, Oriented x3 - Psychiatric Exam Psychiatric exam: Normal Affect, Normal Mood - Skin Skin Exam: Dry, Warm Assessment and Plan - Assessment and Plan (Free Text) Plan: Ms Garces, 42F, admitted to psych on 04/23 for depression and suicidal ideation. ID was consulted for WBC 13.1, trending down to 12.8 yesterday Leukocytosis (SIRS 1/4) - improving Etiology not clear. likely reactive to viral upper respiratory infection vs sinus allergy Diabetes (A1C December 2017) Seizure on depakote Schizophrenia, anxity, depression - CXR (05/01) no active disease - Admission CXR (04/23) no change from prior - supportive care. May consider loratidine prn for rhinorrhea - observe off antibiotics - continue follow clinical course - Urine culture negative. Asymptomatic - follow on blood culture outpatient with Dr. Contreras Disposition plan: No evidence of infection. Observe off antibiotics for now. After discharge, PMD will follow on blood culture. PMD will call pt if blood culture is positive s/r/d/w Dr Whitt <PeriMichelet - Last Filed: 05/02/18 16:46> Objective - Vital Signs/Intake and Output Vital Signs (last 24 hours): Temp Pulse Resp BP Pulse Ox 98.8 F 75 20 108/71 98 05/02/18 07:09 05/02/18 07:09 05/02/18 07:09 05/02/18 08:56 04/23/18 17:41 - Labs Labs: 05/01/18 07:30 05/01/18 07:30 Assessment and Plan - Assessment and Plan (Free Text) Plan: Infectious diseases Attending Physician Attestation Patient seen and examined, discussed with healthcare or medical. I have reviewed the patient's history of present illness, past medical, social, personal and family histories, pertinent physical exam findings, course so far in this hospital admission, pertinent laboratory and imaging results. I agree with the above f indings, assessment and plan.
[2018-05-02] MEDS: Divalproex 500 mg DR(BID formulation) PO SCH (08:57)
--- NOTE | 2018-05-02 13:27 | PN ---
DATE: 05/02/2018 SUBJECTIVE: She is walking in the hallway. I got a chance to talk with her. She is doing better. She is feeling better. She tells me she is going home today. She has hypertension, suicidal ideation, depression, high cholesterol, schizophrenia, leukocytosis. She is on aspirin, Flagyl, Cogentin, Depakote, Desyrel, Glucophage, Haldol, Januvia, Lipitor, Maalox, milk of magnesia, Norvasc, and Paxil. PHYSICAL EXAMINATION: VITAL SIGNS: She has 98.8 temperature, 75 pulse, 108/71 blood pressure, 20 respiratory rate. HEAD: Atraumatic, normocephalic. HEART: Regular rate. LUNGS: Clear to auscultation. ABDOMEN: Soft, obese, nontender. EXTREMITIES: No edema. Hopefully, she will be able to be discharged today. LABORATORY DATA: The white count came down to 12.8 yesterday. She had a culture of urine that showed no growth. ASSESSMENT AND PLAN: I think she is good to be discharged; hopefully, she will. We will continue with aggressive treatment and care on this young lady. I think with the blood culture pending, we could always call her back if we need to. Jason Contreras DO
--- NOTE | 2018-05-02 15:34 | PCM.PYCHDC ---
Mental Status Examination - Mental Status Examination Orientation: Person, Place, Situation, Time Memory: Intact Mood: Neutral Affect: Constricted (Both reactive and mood congruent) Speech: Appropriate (Some poverty of speech) Attention: Poor (But this improvement) Concentration: Poor (With improvement) Association: Loose (Baseline) Fund of Knowledge: Poor (Baseline) Formal Thought Process: Circumstantial Description of patient's judgement and insight: Pt has improved insight into mental and medical illness, pt was compliant with medications and unit rules and regulations, pt was going to groups, was calm, cooperative, socially appropriate, no behavioral incidents, no agitation, no aggression. Psychotic Thoughts and Behaviors: Pt denied v/a/t hallucinations, denied paranoid ideations, pt does not appear to be psychotic, and thought process is goal directed. Suicidal Ideation: No Current Homicidal Ideation?: No Plan: pt adamantly denied thoughts of harming self or others denied intent or plan. Discharge Summary - Discharge Note Reason for Hospitalization: Patient was admitted to the psychiatric inpatient unit for evaluation and stabilization for possible worsening of psychosis, possible suicidal ideation, patient was not able to contract for safety in the emergency room. Psychiatric History (includes Medical, Family, Personal Hx): See HPI Laboratory Data: Abnormal Lab Results 05/01/18 05/01/18 05/01/18 11:00 17:11 20:58 POC Glucose (mg/dL) 246 H 246 H 190 H Consultations:: List each consultation separately and include: 1. Reason for request. 2. Findings. 3. Follow-up Consultations: Medical consult appreciated ID consult appreciated Patient was medically cleared for discharge, patient could follow-up blood cultures as outpatient. Summary of Hospital Course include:: 1. Description of specific treatment plan utilized for patients during their course of treatmen. 2. Summarize the time- course for resolution of acute symptoms and/or regressed behaviors. 3. Describe issues identified and worked on during hospitalization. 4. Describe medication utilized. 5. Describe medical problems identified and treated. 6. 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 Please see admission note for more detailed information. Lani LI from PACT team contacted. Medication list confirmed, meds resumed. As per collateral's patient was seen at the day of admission, patient was doing relatively fine, patient expressed no suicidal ideations or psychosis. Med list: paxil 20mg daily norvasc 10mg daily ASA 81 daily cogentin 1mg bid clozaril 200mg hs and 100dbid depakote 500mg bid haldol dec 100mg monthy, last dose was 04/23/18 januvia 50mg daily metformin 100mg bid trazodone 50mg hs Patient was continued on all the above medications, patient tolerated well, no signs of a granulocytosis. 04/23/18 13:20 04/23/18 13:20 Lab Results 04/24/18 07:00: RPR Nonreactive 04/24/18 07:00: Free T4 0.99, TSH 3rd Generation 4.48 04/24/18 07:00: Fasting Glucose 147 H, Triglycerides 130, Cholesterol 163, LDL Cholesterol Direct 127, HDL Cholesterol 29 04/23/18 13:20: Alcohol, Quantitative < 10 04/23/18 13:20: Salicylates < 1 L, Acetaminophen < 10.0 L 04/23/18 13:20: Sodium 137, Potassium 4.1, Chloride 100, Carbon Dioxide 25, Anion Gap 15, BUN 9, Creatinine 0.5 L, Est GFR ( Amer) > 60, Est GFR (Non-Af Amer) > 60, Random Glucose 199 H, Calcium 9.2, Magnesium 1.4 L, Total Bilirubin 0.2, AST 25, ALT 16, Alkaline Phosphatase 83, Total Protein 7.4, Albumin 3.9, Globulin 3.4, Albumin/Globulin Ratio 1.2 04/23/18 13:20: WBC 10.6, RBC 3.97, Hgb 11.4 L, Hct 34.2 L, MCV 86.1, MCH 28.7, MCHC 33.3, RDW 16.3 H, Plt Count 331, MPV 8.8, Gran % 57.9, Lymph % (Auto) 27.1, Laurel % (Auto) 10.7 H, Eos % (Auto) 4.0, Baso % (Auto) 0.3, Gran # 6.15, Lymph # (Auto) 2.9, Laurel # (Auto) 1.1 H, Eos # (Auto) 0.4, Baso # (Auto) 0.03 04/23/18 12:44: Urine Opiates Screen Negative, Urine Methadone Screen Negative, Ur Barbiturates Screen Negative, Ur Phencyclidine Scrn Negative, Ur Amphetamines Screen Negative, U Benzodiazepines Scrn Negative, U Oth Cocaine Metabols Negati ve, U Cannabinoids Screen Negative 04/23/18 12:44: Urine Color Yellow, Urine Appearance Clear, Urine pH 6.5, Ur Specific Henley 1.015, Urine Protein Negative, Urine Glucose (UA) 250 H, Urine Ketones 15 H, Urine Blood Negative, Urine Nitrate Negative, Urine Bilirubin Negative, Urine Urobilinogen 0.2, Ur Leukocyte Esterase Negative, Urine HCG, Qual Negative Vital Signs Temp Pulse Resp BP Pulse Ox 04/24/18 09:30 140/101 H 04/24/18 07:07 98.0 F 83 20 140/101 H 04/23/18 23:36 97.4 F L 20 135/87 04/23/18 17:41 98.1 F 72 18 130/89 98 04/23/18 15:07 98.8 F 95 H 18 128/85 97 Patient was seen by infectious disease for leukocytosis, patient was seen by primary care physician, please see notes for more detailed information. Patient was cleared for discharge, patient is to follow-up with primary care physician as outpatient. Over the course of this hospitalization pt was attending groups, pt also had medication management, had therapeutic milieu. Overall pt improved, pt's affect became brighter, patient has residual symptoms of psychosis such as poverty of thoughts and speech, disorganized and circumstantial thought process but overall presented very well., pt was socially appropriate, no behavioral issues, pts insight improved as well and soon pt deemed to be ready for discharge. At the time of the discharge pt denied been depressed, denied thoughts of harming self or others, denied psychotic symptoms, and pt does not appeared to be psychotic, denied been anxious, pt is not in imminent danger to self or others, pt was referred back to the PACT team, information about follow up appointment, time and address provided to the pt, it is patient responsibility to follow up with outpatient clinic, PMD as well as specialists (see SW note for more detailed information). In case pt will need to obtain results of studies pending at discharge pt was provided with contact information of Psychiatric Inpatient unit [phone] as well as Medical Record Department [phone]. Patient is not using drugs, does not smoke, does not drink alcohol pt was provided with prescriptions for all of medications (please see medication reconciliation form) Pt was educated about safety plan in case of worsening of symptoms or in case o f suicidal or homicidal ideation call 911 or go to the nearest ER, also was educated to take meds as prescribed and stay away from drugs, pt verbalized understanding. - Diagnosis (1) Schizoaffective disorder Current Visit: No Status: Chronic Priority: High - Final Diagnosis (DSM 5) Condition upon Discharge: STABLE Disposition: HOME/ ROUTINE Follow-up Treatment Plan: At the time of the discharge pt denied been depressed, denied thoughts of harming self or others, denied psychotic symptoms, and pt does not appeared to be psychotic, denied been anxious, pt is not in imminent danger to self or others, pt was referred back to the PACT team, information about follow up appointment, time and address provided to the pt, it is patient responsibility to follow up with outpatient clinic, PMD as well as specialists (see SW note for more detailed information). In case pt will need to obtain results of studies pending at discharge pt was provided with contact information of Psychiatric Inpatient unit [phone] as well as Medical Record Department [phone]. Patient is not using drugs, does not smoke, does not drink alcohol pt was provided with prescriptions for all of medications (please see medication reconciliation form) Pt was educated about safety plan in case of worsening of symptoms or in case of suicidal or homicidal ideation call 911 or go to the nearest ER, also was educated to take meds as prescribed and stay away from drugs, pt verbalized understanding. Prescriptions/Medication Reconciliation: amLODIPine [Norvasc] 10 mg PO DAILY #7 tab Aspirin [Aspirin Chewable] 81 mg PO DAILY #7 chew Atorvastatin [Lipitor] 20 mg PO DIN #7 tab Benztropine [Cogentin] 1 mg PO BID #30 tab cloZAPine [Clozaril] 200 mg PO HS #30 tab cloZAPine [Clozaril] 100 mg PO BID #30 tab Divalproex [Depakote DR(*BID*)] 500 mg PO BID #30 tcp Haloperidol [Haldol] 5 mg PO HS #14 tab MetFORMIN [glucoPHAGE] 1,000 mg PO BID #14 tab PARoxetine [Paxil] 20 mg PO DAILY #14 tab SITagliptin [Januvia] 50 mg PO DAILY #7 tab traZODone [Desyrel] 50 mg PO HS #14 tab - Smoking Cessation Smoking Cessation Medication prescribed: No Reason for not providing: Patient does not smoke - Antipsychotic Medications Pt discharged on 2 or more routine antipsychotic medications: Yes - Justification for 2 or more meds Failed 3 or more trials of Monotherapy: List medications: Patient has chronic schizophrenia, treatment resistant, patient requires to continue on haloperidol p.o. as well as an injectable form patient also is on Clozaril. Patient requires to continue on 2 antipsychotic medications due to severe symptoms, chronic mental illness, state hospitalizations. Patient failed multiple psychotropic medications in the past present moment Haldol and Clozaril are helping patient to function in a relatively stable manner.
== END 2018-05-02 16:31 | disposition home or self-care (01) | DRG 885 ==
LOC: ED 12:15 → ERH 14:56 → PSYC 17:53
PROVIDERS: ADMIT Psychiatry & Neurology Psychiatry; ATTEND Psychiatry & Neurology Psychiatry
PROC: GZ3ZZZZ Medication Management (ICD-10-PCS; principal; 2018-04-23)
DX: F25.9 Schizoaffective disorder, unspecified (principal); R45.851 Suicidal ideations; E11.9 Type 2 diabetes mellitus without complications; E78.00 Pure hypercholesterolemia, unspecified; I10 Essential (primary) hypertension; R56.9 Unspecified convulsions; G47.00 Insomnia, unspecified; D72.829 Elevated white blood cell count, unspecified; F41.9 Anxiety disorder, unspecified; Z79.84 Long term (current) use of oral hypoglycemic drugs; Z79.82 Long term (current) use of aspirin; Z87.891 Personal history of nicotine dependence

== ENCOUNTER 2018-06-11 03:16 | Inpatient (IN) | payer MEDICARE, MEDICAID ==
[2018-06-11 03:18] VITALS: BMI 29.7
--- NOTE | 2018-06-11 03:46 | ED PDOC ---
Arrival/HPI - General Chief Complaint: Psychiatric Evaluation Time Seen by Provider: 06/11/18 03:22 Historian: Patient - History of Present Illness Narrative History of Present Illness (Text): 06/11/18 03:42 Gato Stauffer is a 42 year old female, whose past medical history includes schizophrenia, anxiety, depression, hypertension, hyperlipidemia, diabetes, seizures, and anemia, who presents to the Emergency department complaining of depression and suicidal ideation. Patient states she has been feeling depressed and thinking of attempting to kill herself "all day." Patient states she wants to "cut herself up and go berserk." Patient states she has been non-compliant with her medication. Patient denies any homicidal ideation, fever, chills, chest pain, shortness of breath, nausea, vomiting, diarrhea, urinary symptoms, back pain, neck pain, headache, dizziness, or any other complaints. Symptom Onset: Gradual Symptom Course: Unchanged Activities at Onset: Light Context: Home Past Medical History - Provider Review Nursing Documentation Reviewed: Yes - Past History Past History: Non-Contributing - Infectious Disease Hx of Infectious Diseases: None - Tetanus Immunization Tetanus Immunization: Unknown - Reproductive Menopause: No - Cardiac Hx Hypertension: Yes - Neurological Hx Seizures: Yes - HEENT Hx HEENT Disorder: No - Renal Hx Renal Disorder: No - Endocrine/Metabolic Hx Endocrine Disorders: Yes Hx Diabetes Mellitus Type 2: Yes - Hematological/Oncological Hx Anemia: Yes - Integumentary Hx Dermatological Disorder: No - Musculoskeletal/Rheumatological Hx Musculoskeletal Disorders: No - Gastrointestinal Hx Gastrointestinal Disorders: No - Genitourinary/Gynecological Hx Sexually Transmitted Diseases: No - Psychiatric Hx Substance Use: No - Anesthesia Hx Anesthesia: No Hx Anesthesia Reactions: No Hx Malignant Hyperthermia: No - Suicidal Assessment Feels Threatened In Home Enviroment: No Family/Social History - Physician Review Nursing Documentation Reviewed: Yes Family/Social History: Unknown Family HX Smoking Status: Former Smoker Hx Alcohol Use: No Hx Substance Use: No Hx Substance Use Treatment: No Allergies/Home Meds Allergies/Adverse Reactions: Allergies No Known Allergies Allergy (Verified 06/11/18 03:22) Review of Systems - Physician Review All systems were reviewed & negative as marked: Yes - Review of Systems Constitutional: Normal. absent: Fevers Eyes: Normal ENT: Normal Respiratory: Normal. absent: SOB, Cough Cardiovascular: Normal. absent: Chest Pain Gastrointestinal: Normal. absent: Abdominal Pain, Diarrhea, Nausea, Vomiting Genitourinary Female: Normal. absent: Dysuria, Frequency, Hematuria, Urine Output Changes Musculoskeletal: Normal. absent: Back Pain, Neck Pain Skin: Normal Neurological: Normal. absent: Headache, Dizziness Endocrine: Normal Hemo/Lymphatic: Normal Psychiatric: Depression, Suicidal Ideation Physical Exam Vital Signs Reviewed: Yes Vital Signs Temp Pulse Resp BP Pulse Ox 06/11/18 03:18 98.6 F 72 16 128/84 99 Temperature: Afebrile Blood Pressure: Normal Pulse: Regular Respiratory Rate: Normal Appearance: Positive for: Well-Appearing, Non-Toxic, Comfortable Pain Distress: None Mental Status: Positive for: Alert and Oriented X 3 - Systems Exam Head: Present: Atraumatic, Normocephalic Pupils: Present: PERRL Extroacular Muscles: Present: EOMI Conjunctiva: Present: Normal Mouth: Present: Moist Mucous Membranes Neck: Present: Normal Range of Motion Respiratory/Chest: Present: Clear to Auscultation, Good Air Exchange. No: Respiratory Distress, Accessory Muscle Use Cardiovascular: Present: Regular Rate and Rhythm, Normal S1, S2. No: Murmurs Abdomen: No: Tenderness, Distention, Peritoneal Signs Back: Present: Normal Inspection Upper Extremity: Present: Normal Inspection. No: Cyanosis, Edema Lower Extremity: Present: Normal Inspection. No: Edema Neurological: Present: GCS=15, CN II-XII Intact, Speech Normal Skin: Present: Warm, Dry, Normal Color. No: Rashes Psychiatric: Present: Alert, Oriented x 3, Normal Insight, Normal Concentration Medical Decision Making ED Course and Treatment: 06/11/18 03:42 Impression: 42 year old female complaining of depression and suicidal ideation. Plan: -- EKG -- Chest X-ray -- Labs, alcohol level -- Urine drug screen -- Reassess and disposition Prior Visits: Notes and results from previous visits were reviewed. Progress Notes: Reviewed EKG, sinus tachycardia at [address] bpm[address] Non-specific ST/T wave changes. 06/11/18 05:15 Chest X-ray reviewed, shows no acute processes. 06/11/18 07:[address] Glover, pending PES evaluation and disposition. - Lab Interpretations I have reviewed the lab results: Yes - RAD Interpretation Radiology Orders: 06/11/18 03:23 CHEST PORTABLE [RAD] Stat Electrician Second: ED Physician - EKG Interpretation Interpreted by ED Physician: Yes Type: 12 lead EKG - Scribe Statement The provider has reviewed the documentation as recorded by the Sridevi Franz Provider Scribe Attestation: All medical record entries made by the Scribe were at my direction and personally dictated by me. I have reviewed the chart and agree that the record accurately reflects my personal performance of the history, physical exam, medical decision making, and the department course for this patient. I have also personally directed, reviewed, and agree with the discharge instructions and disposition. Disposition/Present on Arrival - Present on Arrival Any Indicators Present on Arrival: No History of DVT/PE: No History of Uncontrolled Diabetes: No Urinary Catheter: No History of Decub. Ulcer: No History Surgical Site Infection Following: None - Disposition Have Diagnosis and Disposition been Completed?: No Diagnosis: Schizophrenia, Suicidal ideation Disposition Time: 07:00 Condition: STABLE Referrals: Lucía Mathis MD [Primary Care Provider] - Follow up with primary Forms: [employer] (H[place]er)
[2018-06-11 03:59] LABS: HEMOGLOBIN 12.3 g/dL (12.0-16.0); MEAN CELL VOLUME 84.5 fl (80.0-105.0); MEAN CORPUSCULAR HGB CONC 33.2 g/dl (31.0-37.0); MEAN PLATELET VOLUME 8.6 fl (7.0-11.0); RBC 4.39 10^6/uL (3.5-6.1); RED CELL DISTRIBUTION WIDTH 15.3 % (11.5-14.5)
[2018-06-11 04:17] LABS: ALB/GLOB RATIO 1.3 (1.1-1.8); ALBUMIN 4.6 g/dL (3.0-4.8); ALT/SGPT 33 U/L (7-56); AST/SGOT 27 U/L (14-36); BLOOD UREA NITROGEN 13 mg/dL (7-21); CALCIUM 9.9 mg/dL (8.4-10.5); GFR NON-AFRICAN AMERICAN > 60
[2018-06-11 06:39] VITALS: O2SAT 98
[2018-06-11 07:00] LABS: BARBITURATES, UR NEGATIVE (NEGATIVE); BENZODIAZEPINES, UR NEGATIVE (NEGATIVE); OPIATES, UR NEGATIVE (NEGATIVE); PHENCYCLIDINE, UR NEGATIVE (NEGATIVE)
--- NOTE | 2018-06-11 07:26 | ED PDOC ---
Physical Exam Vital Signs Reviewed: Yes Vital Signs Temp Pulse Resp BP Pulse Ox 06/11/18 06:39 82 18 122/72 98 06/11/18 03:18 98.6 F 72 16 128/84 99 Temperature: Afebrile Blood Pressure: Normal Pulse: Regular Respiratory Rate: Normal Appearance: Positive for: Well-Appearing, Non-Toxic, Comfortable Pain Distress: None Mental Status: Positive for: Alert and Oriented X 3 - Systems Exam Head: Present: Atraumatic, Normocephalic Pupils: Present: PERRL Extroacular Muscles: Present: EOMI Conjunctiva: Present: Normal Respiratory/Chest: Present: Clear to Auscultation, Good Air Exchange. No: Respiratory Distress, Accessory Muscle Use Cardiovascular: Present: Regular Rate and Rhythm, Normal S1, S2. No: Murmurs Abdomen: No: Tenderness, Distention, Peritoneal Signs Back: Present: Normal Inspection Upper Extremity: Present: Normal Inspection. No: Cyanosis, Edema Lower Extremity: Present: Normal Inspection. No: Edema Neurological: Present: GCS=15, CN II-XII Intact, Speech Normal Skin: Present: Warm, Dry, Normal Color. No: Rashes Psychiatric: Present: Alert, Oriented x 3, Normal Insight, Normal Concentration Medical Decision Making ED Course and Treatment: 06/11/18 07:00 Case endorsed to me by Dr. Hopson for pending PES evaluation and final disposition. Patient is a 42 year old female, who presented to the ED earlier for evaluation of depression and suicidal ideation. Patient is currently resting in bed in no acute distress. Patient currently denies any new medical complaints. 06/11/18 08:40 Patient evaluated by PES at bedside. Patient agrees to volunteer admission. Patient will be admitted under Dr. José's service. - Lab Interpretations Lab Results: Total Bilirubin 0.2 mg/dL (0.2-1.3) 06/11/18 03:35 AST 27 U/L (14-36) 06/11/18 03:35 ALT 33 U/L (7-56) 06/11/18 03:35 Alkaline Phosphatase 100 U/L (38-126) 06/11/18 03:35 Total Protein 8.2 g/dL (5.8-8.3) 06/11/18 03:35 Albumin 4.6 g/dL (3.0-4.8) 06/11/18 03:35 Globulin 3.6 gm/dL 06/11/18 03:35 Albumin/Globulin Ratio 1.3 (1.1-1.8) 06/11/18 03:35 - RAD Interpretation Radiology Orders: 06/11/18 03:23 CHEST PORTABLE [RAD] Stat - Scribe Statement The provider has reviewed the documentation as recorded by the Scribe Cem Dutta. All medical record entries made by the Scribe were at my direction and personally dictated by me. I have reviewed the chart and agree that the record accurately reflects my personal performance of the history, physical exam, medical decision making, and the department course for this patient. I have also personally directed, reviewed, and agree with the discharge instructions and disposition. Disposition/Present on Arrival - Present on Arrival Any Indicators Present on Arrival: No History of DVT/PE: No History of Uncontrolled Diabetes: No Urinary Catheter: No History of Decub. Ulcer: No History Surgical Site Infection Following: None - Disposition Have Diagnosis and Disposition been Completed?: Yes Diagnosis: Schizophrenia, Suicidal ideation Disposition: HOSPITALIZED Disposition Time: 08:40 Patient Problems: Current Active Problems Problem Status Onset Suicidal ideation Acute Schizophrenia Acute Condition: STABLE
--- NOTE | 2018-06-11 07:45 | RAD ---
Date of service: 06/11/2018 HISTORY: medical clearance COMPARISON: Chest radiographs 05/01/2018. FINDINGS: LUNGS: No active pulmonary disease. PLEURA: No significant pleural effusion identified, no pneumothorax apparent. CARDIOVASCULAR: No aortic atherosclerotic calcification present. Normal cardiac size. No pulmonary vascular congestion. OSSEOUS STRUCTURES: No significant abnormalities. VISUALIZED UPPER ABDOMEN: Normal. OTHER FINDINGS: None. IMPRESSION: No interval acute cardiopulmonary disease appreciated.
--- NOTE | 2018-06-11 11:27 | CARD ---
APPROVED REPORT Date of service: 06/11/2018 EKG Measurement Heart [id number] <Conclusion> Sinus tachycardia Moderate voltage criteria for LVH, may be normal variant T wave abnormality, consider lateral ischemia Abnormal ECG
[2018-06-11 13:08] LABS: PH,URINE 6.5 (4.7-8.0); URINE BILIRUBIN NEGATIVE (NEGATIVE); URINE BLOOD NEGATIVE (NEGATIVE); URINE GLUCOSE (UA) NEGATIVE (NEGATIVE); URINE LEUKOCYTE ESTERASE NEGATIVE Leu/uL (NEGATIVE); URINE PROTEIN NEGATIVE mg/dL (<30 mg/dL); URINE UROBILINOGEN 0.2 E.U./dL (<1 E.U./dL)
[2018-06-11 13:09] LABS: URINE APPEARANCE CLEAR (CLEAR); URINE COLOR YELLOW (YELLOW)
--- NOTE | 2018-06-11 15:34 | PCM.BM ---
<Alek Bhat - Last Filed: 06/11/18 15:31> Treatment Plan Problems - Problems identified on initial assessmt Command/Auditory Hallucinations Date Initiated: 06/11/18 Time Initiated: 12:00 Assessment reference: NA Status: Active Priority: 1 Social Isolation Date Initiated: 06/11/18 Time Initiated: 12:00 Assessment reference: NA Status: Active Priority: 2 Ineffective Coping Date Initiated: 06/11/18 Time Initiated: 12:00 Assessment reference: NA Status: Active Priority: 3 Treatment assets and liabiliti Patient Assests: adapts well, cooperative, educated, self-reliant, ADL independent, negotiates basic needs, cognitively intact, good interpersonal skills Patient Liabilities: live alone, financial problems, poor support system - Milieu Protocol Maintain good personal hygiene: daily Encourage regular showers, every shift Remind patient to perform daily oral care, every shift Assist patient to perform ADL's Maintain personal safety: every shift Educate patient to report safety concerns to staff, every shift Monitor environment for contraband/sharps Medication safety: Monitor for expected outcome, potential side effects: every shift, Assess barriers to learning: every shift, Assess readiness for medication education: every shift Family Contact Family involvement: Family/SO is involved Family contact: Patient agrees to contact - Goals for Treatment Patient goals for treatment: "Get well" Discharge/Continuing Care - Education Needs Education Needs: Patient Medication, Patient Diagnosis/Disease Process, Patient Coping Skills, Patient Anger Management skills, Patient Placement options, Patient Community resources, Patient Activities of Daily Living, Patient Pain, Patient Nutrition, Patient Uses of Medical Equipment, Patient Health Practices/Safety, Patient Personal Hygiene/Grooming, Patient Aftercare Safety Plan - Discharge Discharge Criteria: Tolerates medication w/o severe side effects <Zonia José - Last Filed: 06/12/18 16:06> - Diagnosis (1) Schizophrenia Status: Acute Interventions: 06/12/18 16:06 Psychoeducation/psychotherapy Psychopharmacology/adjustment of medications as needed/ monitoring possible side effects Evaluate pt on daily basis Compliance with medications and follow up appointments Long acting medication if pt is noncompliant with pill form Suicide and homicide risk assessment and prevention, coping strategies, safety plan Relapse prevention Reduction of symptoms Improve functional status Possible assertive community treatment Cognitive behavioral therapy Family involvement Possible social skill training as outpatient <Raisa Miller - Last Filed: 06/13/18 14:41> Family Contact Family involvement: Family/SO is involved - Outside Agency [facility] [place]-PA[facility] Care involvment: Information-sharing Agency contact name: [facility]
[2018-06-11 18:45] VITALS: RESP 20
[2018-06-12 08:05] LABS: GLUCOSE,FASTING 202 mg/dL (65-110); HDL CHOLESTEROL 26 mg/dL (29-60)
[2018-06-12 08:16] LABS: LDL CHOLESTEROL 93 mg/dL (0-129)
[2018-06-12] MEDS ORDERED: Divalproex 500 mg DR(BID formulation) PO SCH (16:00)
--- NOTE | 2018-06-12 16:06 | PCM.PSYCH ---
Initial Psychiatric Evaluation - Initial Psychiatric Evaluation Type of Admission: Voluntary Legal Status: Capacity (Patient has capacity to sign consent for treatment) Chief Complaint (in patient's own words): "Dr. Brar, I was feeling very depressed, I was not doing well, that is why I came to the hospital just to make sure that I am doing okay" As per documentation patient was verbalizing thoughts of killing herself and harming others in the emergency room. Patient's Reaction to Hospitalization: Patient was admitted to the psychiatric inpatient unit for evaluation and stabilization of depressive symptoms, patient was not able to contract for safety, patient verbalized thoughts of harming herself and others. Please see emergency room notes for more detailed information. History of Present Illness and Precipitating Events: Shortly patient is a 42 years old -[place] female, currently single and unemployed, history of schizophrenia, disorganized type, multiple psychiatric admissions in the past, patient currently under care of PACT team from [facility], came to the ED for evaluation of mood symptoms, complaining of depression and suicidal ideation, patient reported that she was thinking to kill herself "all day long", in the emergency room patient reported that she was noncompliant with her medications. Patient was verbalizing suicidal plan that she wants to cut her wrists. Possible medication adjustment. 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 Patient was seen and examined today at the treatment team meeting room with mental health worker as well as medical student. Patient presented with acceptable personal hygiene, wears blond wig, patient has a lot of food stains on her T-shirt and jeans. Overall patient is superficially cooperative, was saying that "I was not feeling right, I came to the hospital to make sure that I am doing okay". Patient has disorganized thoughts, at times patient is using medical jargon which she learned from multiple hospitalizations. For example patient might say "I was not feeling well, it is acute deviation from my baseline". Patient is still delusional about "Mr. Paige" which is not real, patient believes that she is not relationship with him and she is going to be soon. Patient is drawing the pictures of Mr. Paige, patient has erotomanic delusion for years. Patient denied hearing voices, denied seeing things but in the emergency room patient reported that she hears voices to kill herself and others. 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 Patient denied being abused, denied feeling anxious. Patient denies using drugs, denied alcohol consumption, denies smoking. Medication list was confirmed by [facility] PACT yesterday, resumed all of the medications. Past medical history: Diabetes, hypertension, questionable history of seizures. Lani LI from PACT team contacted. Medication list confirmed, meds resumed. As per collateral's patient pt was admitted to [facility] for two days and was d/c within two days. Prescriptions/Medication Reconciliation from PACT cogentin 1mg po bid amLODIPine [Norvasc] 10 mg PO DAILY Aspirin [Aspirin Chewable] 81 mg PO DAILY Atorvastatin [Lipitor] 20 mg PO DIN cloZAPine [Clozaril] 200 mg PO HS cloZAPine [Clozaril] 200 mg PO bid MetFORMIN [glucoPHAGE] 1,000 mg PO BID PARoxetine [Paxil] 20 mg PO DAILY SITagliptin [Januvia] 50 mg PO DAILY traZODone [Desyrel] 50 mg PO HS Depakote and haloperidol were discontinued Past psychiatric history: Patient has multiple hospitalizations including [facility] Medical history: Diabetes, hyperlipidemia, see medical consultation for more detailed information Family history: Not known family history of mental illness Social history: Patient lives independently, does not work, has supportive mother, followed up by PACT team Patient denied history of using drugs, denied smoking, urine drug screen is negative for any substances 06/11/18 03:35 06/11/18 03:35 Lab Results 06/12/18 07:30: TSH 3rd Generation 1.39 06/12/18 07:30: Fasting Glucose 202 H, Triglycerides 142, Cholesterol 146, LDL Cholesterol Direct 93, HDL Cholesterol 26 L 06/11/18 12:32: Urine Color Yellow, Urine Appearance Clear, Urine pH 6.5, Ur Specific [place] <= 1.005, Urine Protein Negative, Urine Glucose (UA) Negative, Urine Ketones Negative, Urine Blood Negative, Urine Nitrate Negative, Urine Bilirubin Negative, Urine Urobilinogen 0.2, Ur Leukocyte Esterase Negative 06/11/18 04:00: Urine Opiates Screen Negative, Urine Methadone Screen Negative, Ur Barbiturates Screen Negative, Ur Phencyclidine Scrn Negative, Ur Amphetamines Screen Negative, U Benzodiazepines Scrn Negative, U Oth Cocaine Metabols Negative, U Cannabinoids Screen Negative 06/11/18 03:35: WBC 13.0 H, RBC 4.39, Hgb 12.3, Hct 37.1, MCV 84.5, MCH 28.0, MCHC 33.2, RDW 15.3 H, Plt Count 367, MPV 8.6 06/11/18 03:35: Alcohol, Quantitative < 10 06/11/18 03:35: Sodium 138, Potassium 3.6, Chloride 102, Carbon Dioxide 25, Anion Gap 15, BUN 13, Creatinine 0.4 L, Est GFR ( Amer) > 60, Est GFR (Non-Af Amer) > 60, Random Glucose 213 H, Calcium 9.9, Total Bilirubin 0.2, AST 27, ALT 33, Alkaline Phosphatase 100, Total Protein 8.2, Albumin 4.6, Globulin 3.6, Albumin/Globulin Ratio 1.3 Vital Signs Temp Pulse Resp BP Pulse Ox 06/12/18 10:24 128/84 06/12/18 07:00 97.8 F 84 20 128/84 06/11/18 16:00 94 H 20 130/93 H 06/11/18 11:10 98.6 F 78 17 126/76 06/11/18 06:39 82 18 122/72 98 06/11/18 03:18 98.6 F 72 16 128/84 99 The patient failed the outpatient lower level of care: Yes Current Medications: Active Medications Generic Name Dose Route Start Last Admin Trade Name Freq PRN Reason Stop Dose Admin Amlodipine Besylate 10 mg 06/12/18 08:00 06/12/18 10:24 Norvasc PO 10 mg DAILY NITIN Administration Aspirin 81 mg 06/12/18 08:00 06/12/18 10:23 Ecotrin PO 81 mg DAILY NITIN Administration Atorvastatin Calcium 20 mg 06/11/18 17:00 06/11/18 17:05 Lipitor PO 20 mg DIN NITIN Administration Clozapine 200 mg 06/11/18 22:00 06/11/18 21:56 Clozaril PO 200 mg HS NITIN Administration Protocol Clozapine 200 mg 06/11/18 16:30 06/12/18 10:24 Clozaril PO 200 mg BID NITIN Administration Protocol Metformin HCl 1,000 mg 06/11/18 16:30 06/12/18 10:23 Glucophage PO 1,000 mg BID NITIN Administration Paroxetine HCl 20 mg 06/12/18 08:00 06/12/18 10:25 Paxil PO 20 mg DAILY NITIN Administration Sitagliptin Phosphate 50 mg 06/12/18 08:00 06/12/18 10:23 Januvia PO 50 mg DAILY NITIN Administration Trazodone HCl 50 mg 06/11/18 22:00 06/11/18 21:57 Desyrel PO 50 mg HS NITIN Administration Present on Admission - Present on Admission Any Indicators Present on Admission: No Review of Systems - Review of Systems Systems not reviewed;Unavailable: Acuity of Condition - Constitutional Constitutional: As Per HPI - EENT Eyes: As Per HPI Ears: As Per HPI Nose/Mouth/Throat: As Per HPI - Breasts Breasts: As Per HPI - Cardiovascular Cardiovascular: As Per HPI - Respiratory Respiratory: As Per HPI - Gastrointestinal Gastrointestinal: As Per HPI - Genitourinary Genitourinary: As Per HPI - Reproductive: Female Reproductive:Female: As Per HPI - Menstruation Menstruation: As Per HPI - Musculoskeletal Musculoskeletal: As Per HPI - Integumentary Integumentary: As Per HPI - Neurological Neurological: As Per HPI - Psychiatric Psychiatric: As Per HPI - Endocrine Endocrine: As Per HPI - Hematologic/Lymphatic Hematologic: As Per HPI Past Patient History - Past Psychiatric History Previous Treatment History: Inpatient Prior Professional Help: As per HPI Prior Psychiatric Treatment: As per HPI [facility]: As per HPI Duration: As per HPI Nature of Treatment: As per HPI Explanation of prior treatment: As per HPI - PSYCHIATRIC Hx Anxiety: Yes Hx Depression: Yes Hx Schizophrenia: Yes Hx Substance Use: No - Infectious Disease Hx of Infectious Diseases: None - Tetanus Immunizations Tetanus Immunization: Unknown - Past Medical History & Family History Past Medical History?: No - CARDIAC Hx Cardiac Disorders: No Hx Hypertension: Yes - PULMONARY Hx Tuberculosis: No - NEUROLOGICAL HX Cerebrovascular Accident: No Hx Seizures: Yes - HEENT Hx HEENT Problems: No - RENAL Hx Chronic Kidney Disease: No - ENDOCRINE/METABOLIC Hx Endocrine Disorders: Yes Hx Diabetes Mellitus Type 2: Yes - HEMATOLOGICAL/ONCOLOGICAL Hx Cancer: No Hx Human Immunodeficiency Virus (HIV): No - INTEGUMENTARY Hx Dermatological Problems: No - MUSCULOSKELETAL/RHEUMATOLOGICAL Hx Musculoskeletal Disorders: No - GASTROINTESTINAL Hx Gastrointestinal Disorders: No - GENITOURINARY/GYNECOLOGICAL Hx Sexually Transmitted Disorders: No - SURGICAL HISTORY Hx Surgeries: No - ANESTHESIA Hx Anesthesia: No Hx Anesthesia Reactions: No Hx Malignant Hyperthermia: No - Medical/Surgical History Reviewed & confirmed: by fl Meds Allergies/Adverse Reactions: Allergies Allergy/AdvReac Type Severity Reaction Status Date / Time No Known Allergies Allergy Verified 06/11/18 16:08 Mental Status Examination - Personal Presentation Personal Presentation: Looks stated age - Affect Affect: Flat - Motor Activity Motor Activity: Calm - Reliability in Providing Information Reliability in Providing Information: Poor, due to alteration in thoughts, Poor, due to cognitve impairment - Speech Speech: Disorganized - Formal Thought Process Formal Thought Process: Hallucinations, Delusions (Erotomanic) - Obsessions/Compulsions Obsessions: None Compulsions: None - Cognitive Functions Orientation: Person, Place Sensorium: Alert Abstract Thinking: [place] Estimate of Intelligence: Below average Judgement: Intact, as evidence by: Insight regarding need for hospitalization - Risk Risk: Self-mutilation, Diminished functioning - Strength & Assets Inventory Strength & Assets Inventory: Cooperative, Other (Good support in the community no drugs, no agitation no aggression) - Limitations Limitations: Other (Disorganized thoughts, frequent admissions) Psychiatric Physical Exam - Physical Exam Reviewed and confirmed: Emergency Department Physical Exam Results - Vital Signs Recent Vital Signs: Last Vital Signs Temp 97.8 F 06/12/18 07:00 Pulse 84 06/12/18 07:00 Resp 20 06/12/18 07:00 BP 128/84 06/12/18 10:24 Pulse Ox 98 06/11/18 06:39 - Labs Result Diagrams: 06/11/18 03:35 06/11/18 03:35 Labs: Laboratory Results - last 24 hr 06/12/18 06/12/18 07:30 07:30 Fasting Glucose 202 H Triglycerides 142 Cholesterol 146 LDL Cholesterol Direct 93 HDL Cholesterol 26 L TSH 3rd Generation 1.39 - EKG Data EKG Interpreted by: ER Physician DSM Plan - DSM 5 DSM 5 Diagnosis: Schizophrenia, disorganized type - Recommended/Plan of Treatment Treatment Recommendations and Plan of Treatment: Milieu/structure/supportive therapy SW consultation for discharge plan and social issues Medical consult Med management: Depakote was d/c as per PACT Haldol Dec was d/c as per PACT Clozaril 200 mg p.o. twice daily psychosis Clazaril 200 mg p.o. nightly psychosis Trazodone 50 mg p.o. nightly Medical meds resumed Family involvement Follow up on labs Will monitor closely Pt was educated about risk/benefits and alternatives of medications, coping strategies (safety plan, suicide prevention), relapse prevention, importance of follow up with psychiatrist and therapist, stay away from drugs/alcohol/smoking Projected ELOS: 7 days Prognosis: Guarded Discharge Plan and Discharge Criteria: Mood will be stable, pt will be more hopeful, will be not psychotic or anxious, will be tolerating medications well, will not have major side effects, will be able to function, will not pose threat to self or others. - Tobacco Cessation Tobacco Use Status for the last 30 days: Non User Tobacco Use Treatment Practical Counseling Provided: No Tobacco Use Treatment FDA-Approved Cessation Medication Provided: No - Alcohol or Substance Abuse Does the patient have an Alcohol or Substance Abuse Disorder: No Initial Psych Certification - Initial Certification I certify that the inpatient psychiatric facility admission was medically necessary for either: Treatment which could reasonbly be expected to improve pt's condition I estimate of hospitalization is necessary for proper treatment of the patient: 7 Unit of Time: Days My plans for post-hospital care for this patient are[facility]
--- NOTE | 2018-06-12 21:31 | CON ---
DATE: 06/12/2018 HISTORY OF PRESENT ILLNESS: I have known her for many years and I have been seeing here in the office on the psychiatric floor. She is a 42-year-old female who presents to the psychiatric floor being depressed, thinking about attempted to kill herself all day, wants to cut herself and go bizarre. She has also been noncompliant with the medication that usually what happens when she gets these feelings. PAST MEDICAL HISTORY: She has a past medical history of schizophrenia, anxiety, depression, hypertension, hyperlipidemia, diabetes, seizures, anemia, depression, she has done this before and now she is back, but not taking the medications again that put her into the situation. FAMILY HISTORY: No apparently family history. SOCIAL HISTORY: Former smoker. No alcohol. No drugs. ALLERGIES: NO KNOWN DRUG ALLERGIES. REVIEW OF SYSTEMS: She is very tired. She No vision change. No hearing changes. No shortness of breath or cough. No chest pain. No abdominal pain, nausea, vomiting, constipation, or diarrhea. No problem with urinating. No back pain. No headache. No dizziness. She has depression and she is suicidal. PHYSICAL EXAMINATION: GENERAL: She is a well-appearing, tired, lethargic, alert and oriented x3. VITAL SIGNS: She has a 98.6 temp, 72 pulse, 16 respiratory rate, 128/84 blood pressure, and 99% O2 sat on room air. HEENT: Head is atraumatic and normocephalic. Extraocular muscles are intact. Pupils are equally reactive to light. Mucous membranes are moist. NECK: Supple. No JVD. Thyroid midline. No palpable appreciable lymphadenopathy. HEART: Regular rate, normal S1 and S2. LUNGS: Decreased breath sounds, but clear to auscultation. ABDOMEN: Soft and nontender. Positive bowel sounds. Obese. EXTREMITIES: No edema. GCS is 15. Cranial nerves II through XII grossly intact. She can stick out the tongue midline. She can open and close her eyes. She can raise her arms over head. SKIN: Warm and dry. No apparent rashes or ulcers I can appreciate under this situation. LABORATORY DATA: Urine is clean. Urine toxicology is also clean. She has 138 sodium, potassium 3.6, BUN 13, creatinine 0.4, GFR is greater than 60, sugar is 202, calcium is 9.1, and total bili 0.2. AST is 27, ALT 33, alk phos 100, total protein 8.1, albumin 4.6, triglycerides 142, cholesterol 146, and TSH 1.39. White count is elevated at 13, we will repeat it tomorrow, sometimes stress when she comes to the hospital. Hemoglobin is 12.3, hematocrit 37.1, and platelets are 367. I will repeat the CBC and chemistry tomorrow. MEDICATIONS: She is currently on Clozaril, Desyrel, Ecotrin, Glucophage, Januvia, Lipitor, Norvasc, and Paxil. ASSESSMENT AND PLAN: If the blood sugars stay high, we will add insulin coverage, hopefully wants to do that. We will check her labs tomorrow. I encourage her to participate and take her medication with psychiatry and we will follow. Gato Garces who has got depression, suicidal ideation, schizophrenia, and diabetes. Jason Contreras DO [facility]
[2018-06-13 08:18] LABS: HEMOGLOBIN 11.6 g/dL (12.0-16.0); MEAN CELL VOLUME 84.7 fl (80.0-105.0); MEAN CORPUSCULAR HEMOGLOBIN 27.8 pg (25.0-35.0); MEAN CORPUSCULAR HGB CONC 32.8 g/dl (31.0-37.0); MEAN PLATELET VOLUME 8.7 fl (7.0-11.0); RBC 4.18 10^6/uL (3.5-6.1); RED CELL DISTRIBUTION WIDTH 15.3 % (11.5-14.5); WHITE BLOOD COUNT 17.8 10^3/uL (4.5-11.0)
[2018-06-13 08:48] LABS: ALB/GLOB RATIO 1.2 (1.1-1.8); ALT/SGPT 28 U/L (7-56); AST/SGOT 17 U/L (14-36); BLOOD UREA NITROGEN 8 mg/dL (7-21); CALCIUM 8.8 mg/dL (8.4-10.5); GFR NON-AFRICAN AMERICAN > 60
--- NOTE | 2018-06-13 12:22 | PCM.PYCHPN ---
Psychiatric Progress Note - Psychiatric Progress Note Patient seen today, length of contact: 25 min Problems Identified/Issues Discussed: I reviewed assessment and recent notes. I met with patient at bedside and then again during treatment team meeting. I am very familiar with patient from her numerous psychiatric admissions to this unit. She remains superficial and denies any new concerns. Patient indicates that she is feeling better. She denies recurrence of hallucinations (in the emergency room patient reported that she heard voices to kill herself and others) or suicidal thoughts. States "I am just fine, doc". Patient doesn't appear to be overtly bizarre or actively responding to internal stimuli though she is internally preoccupied. Has been eating and sleeping well. Nursing notes also indicates that patient has been in good control and generally pleasant on the unit. Appearance is kempt. Delusions were not elicited by this provider though patient reportedly has a chronic delusion that she is in a relationship with a male named Mr. Paige. As usual there have been no behavioral issues on the unit. Diagnostic Results: Schizoaffective Disorder Medication Change: No Medical Record Reviewed: Yes Mental Status Examination - Cognitive Function Orientation: Person, Place Attention: WNL Concentration: Poor Association: Loose Fund of Knowledge: Poor - Mood Mood: Neutral ("I am okay, doc") - Affect Affect: Flat - Speech Speech: Appropriate - Formal Thought Process Formal Thought Process: Hallucinations (denies), Delusions (Erotomanic) - Suicidal Ideation Suicidal Ideation: No - Homicidal Ideation Homicidal Ideation: No Goal/Treatment Plan - Goal/Treatment Plan Progress Toward Problem(s) and Goals/Treatment Plan: * c/w current tx and plan * Clozaril 200 mg p.o. BID and 200 mg p.o. nightly for psychosis * Trazodone 50 mg p.o. nightly * Paxil 20 mg daily for history of depression * Vitals reviewed and noted below: Selected Entries 06/12/18 06/12/18 07:00 15:00 Temperature 97.8 F Pulse Rate 84 102 H Respiratory 20 Rate Blood Pressure 128/84 127/90 * New lab results noted below: Laboratory Results - last 24 hr 06/12/18 06/13/18 06/13/18 07:30 08:00 08:00 WBC 17.8 H D RBC 4.18 Hgb 11.6 L Hct 35.4 L MCV 84.7 MCH 27.8 MCHC 32.8 RDW 15.3 H Plt Count 343 MPV 8.7 Sodium 137 Potassium 3.9 Chloride 102 Carbon Dioxide 26 Anion Gap 13 BUN 8 Creatinine 0.4 L Est GFR ( Amer) > 60 Est GFR (Non-Af Amer) > 60 Random Glucose 209 H Calcium 8.8 Total Bilirubin 0.2 AST 17 ALT 28 Alkaline Phosphatase 96 Total Protein 7.2 Albumin 4.0 Globulin 3.2 Albumin/Globulin Ratio 1.2 RPR Nonreactive
--- NOTE | 2018-06-13 16:01 | PN ---
DATE: 06/13/2018 SUBJECTIVE: I saw her in the psychiatric floor. She is in eating her breakfast. She is feeling better, doing better. She is on Clozaril, Desyrel, Ecotrin, Glucophage, Januvia, Lipitor, Norvasc, and Paxil. PHYSICAL EXAMINATION: GENERAL: She is alert, comfortable, smiling, good spirits, no complaints. VITAL SIGNS: Temperature 98.2, 96 pulse, 123/73 blood pressure, 20 respiratory rate. HEENT: Head: Atraumatic and normocephalic. HEART: Regular rate. LUNGS: Clear to auscultation. ABDOMEN: Soft. EXTREMITIES: No edema. LABORATORY DATA: She had a 7.8 white count that went up, 11.6 hemoglobin, 35.4 hematocrit with 343 platelets. She has 137 sodium, potassium 3.9, BUN 8, creatinine 0.8, GFR is greater than 60, sugars 209, calcium is 8.8, total bili is 0.2, AST is 17, ALT is 28, alk phos 96, total protein 7.2, TSH is 1.39. Urine is clean. Toxicology clean. Nonreactive RPR. I am going to consult Infectious Disease for the elevated white count, it went up. I do not have the source. I will see if Infectious Disease can help this. May have to do blood cultures and urine cultures and other set of blood tests. We will continue aggressive treatment and care on Gtao Garces, but she has leukocytosis now also on top of her diabetes and high cholesterol. IMPRESSION: Schizophrenia, seizures, and anemia. Jason Contreras DO [facility]
[2018-06-14 00:53] LABS: URINE BILIRUBIN NEGATIVE (NEGATIVE); URINE BLOOD NEGATIVE (NEGATIVE); URINE GLUCOSE (UA) NEGATIVE (NEGATIVE); URINE LEUKOCYTE ESTERASE NEGATIVE Leu/uL (NEGATIVE); URINE PROTEIN NEGATIVE mg/dL (<30 mg/dL); URINE UROBILINOGEN 0.2 E.U./dL (<1 E.U./dL)
[2018-06-14 01:04] LABS: URINE APPEARANCE CLEAR (CLEAR); URINE COLOR YELLOW (YELLOW)
[2018-06-14 07:55] LABS: HEMOGLOBIN 11.7 g/dL (12.0-16.0); MEAN CELL VOLUME 84.7 fl (80.0-105.0); MEAN CORPUSCULAR HEMOGLOBIN 27.9 pg (25.0-35.0); MEAN PLATELET VOLUME 8.4 fl (7.0-11.0); RBC 4.19 10^6/uL (3.5-6.1); RED CELL DISTRIBUTION WIDTH 15.6 % (11.5-14.5); WHITE BLOOD COUNT 12.8 10^3/uL (4.5-11.0)
[2018-06-14 08:10] LABS: ALB/GLOB RATIO 1.2 (1.1-1.8); ALT/SGPT 31 U/L (7-56); AST/SGOT 25 U/L (14-36); BLOOD UREA NITROGEN 6 mg/dL (7-21); CALCIUM 9.1 mg/dL (8.4-10.5); GFR NON-AFRICAN AMERICAN > 60
--- NOTE | 2018-06-14 10:12 | PCM.PYCHPN ---
Psychiatric Progress Note - Psychiatric Progress Note Patient seen today, length of contact: 25 min Problems Identified/Issues Discussed: I reviewed recent notes and met with patient at bedside again. I am very familiar with patient from her numerous psychiatric admissions to this unit. She remains superficial and denies any new concerns. Patient indicates that she is feeling better. She continues to deny recurrence of hallucinations (in the emergency room patient reported that she heard voices to kill herself and others) or suicidal thoughts. States "I am just fine, doc". Patient doesn't appear to be overtly bizarre or actively responding to internal stimuli. Nonetheless she appears a little odd, distracted and internally preoccupied. Has been eating and sleeping well. Nursing notes also indicates that patient has been in good control and generally pleasant on the unit. She spent a lot of time in her room yesterday. Delusions were not elicited by this provider though patient reportedly has a chronic delusion that she is in a relationship with a male named Mr. Paige. As usual there have been no behavioral issues on the unit. Diagnostic Results: Schizoaffective Disorder Medication Change: No Medical Record Reviewed: Yes Mental Status Examination - Cognitive Function Orientation: Person, Place Attention: WNL Concentration: Poor Association: Loose Fund of Knowledge: Poor - Mood Mood: Neutral ("I am okay, doc") - Affect Affect: Flat - Speech Speech: Appropriate - Formal Thought Process Formal Thought Process: Hallucinations (denies), Delusions (Erotomanic) - Suicidal Ideation Suicidal Ideation: No - Homicidal Ideation Homicidal Ideation: No Goal/Treatment Plan - Goal/Treatment Plan Progress Toward Problem(s) and Goals/Treatment Plan: * c/w current tx and plan * Appreciate f/u by Dr. Contreras on 06/13/18~consulting ID for leukocytosis and has ordered labs. * Clozaril 200 mg p.o. BID and 200 mg p.o. nightly for psychosis * Trazodone 50 mg p.o. nightly * Paxil 20 mg daily for history of depression * Vitals reviewed and noted below: Selected Entries 06/14/18 07:20 Temperature 98.3 F Pulse Rate 91 H Respiratory 20 Rate Blood Pressure 127/88 * New lab results noted below: Laboratory Results - last 24 hr 06/12/18 06/13/18 06/13/18 07:30 08:00 08:00 WBC 17.8 H D RBC 4.18 Hgb 11.6 L Hct 35.4 L MCV 84.7 MCH 27.8 MCHC 32.8 RDW 15.3 H Plt Count 343 MPV 8.7 Sodium 137 Potassium 3.9 Chloride 102 Carbon Dioxide 26 Anion Gap 13 BUN 8 Creatinine 0.4 L Est GFR ( Amer) > 60 Est GFR (Non-Af Amer) > 60 Random Glucose 209 H Calcium 8.8 Total Bilirubin 0.2 AST 17 ALT 28 Alkaline Phosphatase 96 Total Protein 7.2 Albumin 4.0 Globulin 3.2 Albumin/Globulin Ratio 1.2 RPR Nonreactive
--- NOTE | 2018-06-14 12:38 | CP.PCM.CON ---
<Oscar Lundy - Last Filed: 06/14/18 12:35> History of Present Illness - History of Present Illness History of Present Illness: ID Consult Note 42 year old female with past medical history of HTN, HLD, DM, anemia, schizophrenia, anxiety, and depression presents to the hospital for suicidal ideation. Patient has been admitted for similar episodes in the past. Patient also has a history of noncompliance with medications. Patient currently states she feels well with no suicidal ideation. Patient has no complaints at this time. Denies chest pain, shortness of breath, nausea, vomiting, diarrhea, fever, chills, numbness, tingling, dysuria, congestion, cough. Medical Hx: As above Family Hx: Schizophrenia Social Hx: Former tobacco use. Denies alcohol or illicit drug use Allergies: NKDA Medications: Reviewed, as per MAR Review of Systems - Review of Systems Review of Systems: 12 point ROS as per HPI, otherwise negative Past Patient History - Infectious Disease Hx of Infectious Diseases: None - Tetanus Immunizations Tetanus Immunization: Unknown - Past Medical History & Family History Past Medical History?: No - Past Social History Smoking Status: Former Smoker - CARDIAC Hx Cardiac Disorders: No Hx Hypertension: Yes - PULMONARY Hx Tuberculosis: No - NEUROLOGICAL HX Cerebrovascular Accident: No Hx Seizures: Yes - HEENT Hx HEENT Problems: No - RENAL Hx Chronic Kidney Disease: No - ENDOCRINE/METABOLIC Hx Endocrine Disorders: Yes Hx Diabetes Mellitus Type 2: Yes - HEMATOLOGICAL/ONCOLOGICAL Hx Cancer: No Hx Human Immunodeficiency Virus (HIV): No - INTEGUMENTARY Hx Dermatological Problems: No - MUSCULOSKELETAL/RHEUMATOLOGICAL Hx Musculoskeletal Disorders: No - GASTROINTESTINAL Hx Gastrointestinal Disorders: No - GENITOURINARY/GYNECOLOGICAL Hx Sexually Transmitted Disorders: No - PSYCHIATRIC Hx Anxiety: Yes Hx Depression: Yes Hx Schizophrenia: Yes Hx Substance Use: No - SURGICAL HISTORY Hx Surgeries: No - ANESTHESIA Hx Anesthesia: No Hx Anesthesia Reactions: No Hx Malignant Hyperthermia: No Meds Allergies/Adverse Reactions: Allergies Allergy/AdvReac Type Severity Reaction Status Date / Time No Known Allergies Allergy Verified 06/11/18 16:08 - Medications Medications: Current Medications Amlodipine Besylate (Norvasc) 10 mg PO DAILY [facility] Last Admin: 06/14/18 08:42 Dose: 10 mg Aspirin (Ecotrin) 81 mg PO DAILY [facility] Last Admin: 06/14/18 08:41 Dose: 81 mg Atorvastatin Calcium (Lipitor) 20 mg PO DIN [facility] Last Admin: 06/13/18 17:37 Dose: 20 mg Clozapine (Clozaril) 200 mg PO HS [facility]; Protocol Last Admin: 06/13/18 21:51 Dose: 200 mg Clozapine (Clozaril) 200 mg PO BID [facility]; Protocol Last Admin: 06/14/18 08:41 Dose: 200 mg Metformin HCl (Glucophage) 1,000 mg PO BID [facility] Last Admin: 06/14/18 08:41 Dose: 1,000 mg Paroxetine HCl (Paxil) 20 mg PO DAILY [facility] Last Admin: 06/14/18 08:43 Dose: 20 mg Sitagliptin Phosphate (Januvia) 50 mg PO DAILY [facility] Last Admin: 06/14/18 08:42 Dose: 50 mg Trazodone HCl (Desyrel) 50 mg PO HS [facility] Last Admin: 06/13/18 21:52 Dose: 50 mg Physical Exam - Constitutional Appears: Non-toxic, No Acute Distress - Head Exam Head Exam: ATRAUMATIC, NORMAL INSPECTION, NORMOCEPHALIC - ENT Exam ENT Exam: Mucous Membranes Moist - Respiratory Exam Respiratory Exam: Clear to Auscultation Bilateral, NORMAL BREATHING PATTERN - Cardiovascular Exam Cardiovascular Exam: RRR, +S1, +S2 - GI/Abdominal Exam GI & Abdominal Exam: Normal Bowel Sounds, Soft. absent: Tenderness - Extremities Exam Extremities exam: Positive for: normal inspection. Negative for: pedal edema - Neurological Exam Neurological exam: Alert, CN II-XII Intact, Oriented x3 - Psychiatric Exam Psychiatric exam: Normal Affect, Normal Mood - Skin Skin Exam: Dry, Intact, Warm Results - Vital Signs Recent Vital Signs: Last Vital Signs Temp 98.3 F 06/14/18 07:20 Pulse 91 H 06/14/18 07:20 Resp 20 06/14/18 07:20 BP 127/88 06/14/18 08:42 Pulse Ox 98 06/11/18 06:39 - Labs Result Diagrams: 06/14/18 07:40 06/14/18 07:40 Labs: Laboratory Results - last 24 hr 06/11/18 06/11/18 06/12/18 17:09 21:49 07:18 WBC RBC Hgb Hct MCV MCH MCHC RDW Plt Count MPV Sodium Potassium Chloride Carbon Dioxide Anion Gap BUN Creatinine Est GFR ( Amer) Est GFR (Non-Af Amer) POC Glucose (mg/dL) 202 H 227 H 187 H Random Glucose Calcium Total Bilirubin AST ALT Alkaline Phosphatase Total Protein Albumin Globulin Albumin/Globulin Ratio Urine Color Urine Appearance Urine pH Ur Specific [place] Urine Protein Urine Glucose (UA) Urine Ketones Urine Blood Urine Nitrate Urine Bilirubin Urine Urobilinogen Ur Leukocyte Esterase 06/12/18 06/12/18 06/12/18 11:08 16:15 21:26 WBC RBC Hgb Hct MCV MCH MCHC RDW Plt Count MPV Sodium Potassium Chloride Carbon Dioxide Anion Gap BUN Creatinine Est GFR ( Amer) Est GFR (Non-Af Amer) POC Glucose (mg/dL) 254 H 231 H 166 H Random Glucose Calcium Total Bilirubin AST ALT Alkaline Phosphatase Total Protein Albumin Globulin Albumin/Globulin Ratio Urine Color Urine Appearance Urine pH Ur Specific [place] Urine Protein Urine Glucose (UA) Urine Ketones Urine Blood Urine Nitrate Urine Bilirubin Urine Urobilinogen Ur Leukocyte Esterase 06/13/18 06/13/18 06/13/18 07:25 11:13 16:18 WBC RBC Hgb Hct MCV MCH MCHC RDW Plt Count MPV Sodium Potassium Chloride Carbon Dioxide Anion Gap BUN Creatinine Est GFR ( Amer) Est GFR (Non-Af Amer) POC Glucose (mg/dL) 197 H 221 H 231 H Random Glucose Calcium Total Bilirubin AST ALT Alkaline Phosphatase Total Protein Albumin Globulin Albumin/Globulin Ratio Urine Color Urine Appearance Urine pH Ur Specific [place] Urine Protein Urine Glucose (UA) Urine Ketones Urine Blood Urine Nitrate Urine Bilirubin Urine Urobilinogen Ur Leukocyte Esterase 06/13/18 06/14/18 06/14/18 21:08 00:00 07:33 WBC RBC Hgb Hct MCV MCH MCHC RDW Plt Count MPV Sodium Potassium Chloride Carbon Dioxide Anion Gap BUN Creatinine Est GFR ( Amer) Est GFR (Non-Af Amer) POC Glucose (mg/dL) 106 162 H Random Glucose Calcium Total Bilirubin AST ALT Alkaline Phosphatase Total Protein Albumin Globulin Albumin/Globulin Ratio Urine Color Yellow Urine Appearance Clear Urine pH 6.0 Ur Specific [place] 1.020 Urine Protein Negative Urine Glucose (UA) Negative Urine Ketones 15 H Urine Blood Negative Urine Nitrate Negative Urine Bilirubin Negative Urine Urobilinogen 0.2 Ur Leukocyte Esterase Negative 06/14/18 06/14/18 07:40 07:40 WBC 12.8 H D RBC 4.19 Hgb 11.7 L Hct 35.5 L MCV 84.7 MCH 27.9 MCHC 33.0 RDW 15.6 H Plt Count 341 MPV 8.4 Sodium 138 Potassium 4.1 Chloride 104 Carbon Dioxide 26 Anion Gap 13 BUN 6 L Creatinine 0.3 L Est GFR ( Amer) > 60 Est GFR (Non-Af Amer) > 60 POC Glucose (mg/dL) Random Glucose 177 H Calcium 9.1 Total Bilirubin 0.2 AST 25 ALT 31 Alkaline Phosphatase 90 Total Protein 7.1 Albumin 4.0 Globulin 3.2 Albumin/Globulin Ratio 1.2 Urine Color Urine Appearance Urine pH Ur Specific [place] Urine Protein Urine Glucose (UA) Urine Ketones Urine Blood Urine Nitrate Urine Bilirubin Urine Urobilinogen Ur Leukocyte Esterase Assessment & Plan - Assessment and Plan (Free Text) Plan: SIRS with no source of infection Hx of HTN Hx of HLD Hx of DM Hx of anxiety Hx of depression Hx of suicidal ideation Hx of anemia Plan Will obtain blood and urine cultures Will order chest x-ray Will monitor off antibiotics at this time Continue to monitor closely Kamron PGY-3 <Michelet Whitt - Last Filed: 06/14/18 15:02> Meds - Medications Medications: Current Medications Amlodipine Besylate (Norvasc) 10 mg PO DAILY [facility] Last Admin: 06/14/18 08:42 Dose: 10 mg Aspirin (Ecotrin) 81 mg PO DAILY [facility] Last Admin: 06/14/18 08:41 Dose: 81 mg Atorvastatin Calcium (Lipitor) 20 mg PO DIN [facility] Last Admin: 06/13/18 17:37 Dose: 20 mg Clozapine (Clozaril) 200 mg PO HS [facility]; Protocol Last Admin: 06/13/18 21:51 Dose: 200 mg Clozapine (Clozaril) 200 mg PO BID [facility]; Protocol Last Admin: 06/14/18 08:41 Dose: 200 mg Metformin HCl (Glucophage) 1,000 mg PO BID [facility] Last Admin: 06/14/18 08:41 Dose: 1,000 mg Paroxetine HCl (Paxil) 20 mg PO DAILY [facility] Last Admin: 06/14/18 08:43 Dose: 20 mg Sitagliptin Phosphate (Januvia) 50 mg PO DAILY [facility] Last Admin: 06/14/18 08:42 Dose: 50 mg Trazodone HCl (Desyrel) 50 mg PO HS [facility] Last Admin: 06/13/18 21:52 Dose: 50 mg Results - Vital Signs Recent Vital Signs: Last Vital Signs Temp 98.3 F 06/14/18 07:20 Pulse 91 H 06/14/18 07:20 Resp 20 06/14/18 07:20 BP 127/88 06/14/18 08:42 Pulse Ox 98 06/11/18 06:39 - Labs Result Diagrams: 06/14/18 07:40 06/14/18 07:40 Labs: Laboratory Results - last 24 hr 06/11/18 06/11/18 06/12/18 17:09 21:49 07:18 WBC RBC Hgb Hct MCV MCH MCHC RDW Plt Count MPV Sodium Potassium Chloride Carbon Dioxide Anion Gap BUN Creatinine Est GFR ( Amer) Est GFR (Non-Af Amer) POC Glucose (mg/dL) 202 H 227 H 187 H Random Glucose Calcium Total Bilirubin AST ALT Alkaline Phosphatase Total Protein Albumin Globulin Albumin/Globulin Ratio Urine Color Urine Appearance Urine pH Ur Specific [place] Urine Protein Urine Glucose (UA) Urine Ketones Urine Blood Urine Nitrate Urine Bilirubin Urine Urobilinogen Ur Leukocyte Esterase 06/12/18 06/12/18 06/12/18 11:08 16:15 21:26 WBC RBC Hgb Hct MCV MCH MCHC RDW Plt Count MPV Sodium Potassium Chloride Carbon Dioxide Anion Gap BUN Creatinine Est GFR ( Amer) Est GFR (Non-Af Amer) POC Glucose (mg/dL) 254 H 231 H 166 H Random Glucose Calcium Total Bilirubin AST ALT Alkaline Phosphatase Total Protein Albumin Globulin Albumin/Globulin Ratio Urine Color Urine Appearance Urine pH Ur Specific [place] Urine Protein Urine Glucose (UA) Urine Ketones Urine Blood Urine Nitrate Urine Bilirubin Urine Urobilinogen Ur Leukocyte Esterase 06/13/18 06/13/18 06/13/18 07:25 11:13 16:18 WBC RBC Hgb Hct MCV MCH MCHC RDW Plt Count MPV Sodium Potassium Chloride Carbon Dioxide Anion Gap BUN Creatinine Est GFR ( Amer) Est GFR (Non-Af Amer) POC Glucose (mg/dL) 197 H 221 H 231 H Random Glucose Calcium Total Bilirubin AST ALT Alkaline Phosphatase Total Protein Albumin Globulin Albumin/Globulin Ratio Urine Color Urine Appearance Urine pH Ur Specific [place] Urine Protein Urine Glucose (UA) Urine Ketones Urine Blood Urine Nitrate Urine Bilirubin Urine Urobilinogen Ur Leukocyte Esterase 06/13/18 06/14/18 06/14/18 21:08 00:00 07:33 WBC RBC Hgb Hct MCV MCH MCHC RDW Plt Count MPV Sodium Potassium Chloride Carbon Dioxide Anion Gap BUN Creatinine Est GFR ( Amer) Est GFR (Non-Af Amer) POC Glucose (mg/dL) 106 162 H Random Glucose Calcium Total Bilirubin AST ALT Alkaline Phosphatase Total Protein Albumin Globulin Albumin/Globulin Ratio Urine Color Yellow Urine Appearance Clear Urine pH 6.0 Ur Specific [place] 1.020 Urine Protein Negative Urine Glucose (UA) Negative Urine Ketones 15 H Urine Blood Negative Urine Nitrate Negative Urine Bilirubin Negative Urine Urobilinogen 0.2 Ur Leukocyte Esterase Negative 06/14/18 06/14/18 07:40 07:40 WBC 12.8 H D RBC 4.19 Hgb 11.7 L Hct 35.5 L MCV 84.7 MCH 27.9 MCHC 33.0 RDW 15.6 H Plt Count 341 MPV 8.4 Sodium 138 Potassium 4.1 Chloride 104 Carbon Dioxide 26 Anion Gap 13 BUN 6 L Creatinine 0.3 L Est GFR ( Amer) > 60 Est GFR (Non-Af Amer) > 60 POC Glucose (mg/dL) Random Glucose 177 H Calcium 9.1 Total Bilirubin 0.2 AST 25 ALT 31 Alkaline Phosphatase 90 Total Protein 7.1 Albumin 4.0 Globulin 3.2 Albumin/Globulin Ratio 1.2 Urine Color Urine Appearance Urine pH Ur Specific [place] Urine Protein Urine Glucose (UA) Urine Ketones Urine Blood Urine Nitrate Urine Bilirubin Urine Urobilinogen Ur Leukocyte Esterase Assessment & Plan - Assessment and Plan (Free Text) Plan: Infectious diseases Attending Physician Attestation Patient seen and examined, discussed with medical radiation therapist. I have reviewed the patient's history of present illness, past medical, social, personal and family histories, pertinent physical exam findings, course so far in this hospital admission, pertinent laboratory and imaging results. I agree with the above findings, assessment and plan. In addition, patient with leukocytosis and SIRS but so far no evidence of infection. Will check blood, urine cx although urina lysis is bland, CXR and will monitor clinically off antibiotics.
--- NOTE | 2018-06-14 14:14 | PN ---
DATE: 06/14/2018 SUBJECTIVE: I saw her on the psychiatric floor. She is on Clozaril, Desyrel, Ecotrin, Glucophage, Januvia, Lipitor, Norvasc and Paxil. She is feeling a lot better. She is walking the lizama. She is participating, she is taking the medication, she is eating well, in good spirits. PHYSICAL EXAMINATION VITAL SIGNS: She has 98.3 temperature, 91 pulse, 127/88 blood pressure and 20 respiratory rate. HEENT: Head is atraumatic and normocephalic. HEART: Regular rate. LUNGS: Clear to auscultation. ABDOMEN: Soft and obese. EXTREMITIES: No edema. She is really doing quite well. LABORATORY DATA: She does have a 12.8 white count it came down from 17 and 11.7 hemoglobin, 35.5 hematocrit with 341 platelets. A 138 sodium, potassium 4.1, BUN is 6, creatinine 0.3, GFR greater than 60, sugar is 177, calcium is 9.1, total bili is 0.2, AST is 25, ALT is 31, alk phos is 90 and total protein 7.1. Nonreactive RPR. She is being seen by Psychiatry. I did consult Infectious Disease for the elevated white count, they did not see the patient yet. I am happy that the white count is dropping by itself. I will continue to monitor it, we will check it tomorrow also. I will continue aggressive treatment and care on Gato Garces, she has depression, schizophrenia, she is depressed, seizure history, high cholesterol, diabetes and leukocytosis. Jason Contreras DO
[2018-06-15 07:26] LABS: HEMOGLOBIN 11.8 g/dL (12.0-16.0); MEAN CELL VOLUME 84.9 fl (80.0-105.0); MEAN CORPUSCULAR HEMOGLOBIN 27.8 pg (25.0-35.0); MEAN CORPUSCULAR HGB CONC 32.8 g/dl (31.0-37.0); MEAN PLATELET VOLUME 8.3 fl (7.0-11.0); RBC 4.24 10^6/uL (3.5-6.1); RED CELL DISTRIBUTION WIDTH 15.5 % (11.5-14.5)
--- NOTE | 2018-06-15 09:36 | RAD ---
Date of service: 06/14/2018 HISTORY: Leukocytosis. COMPARISON: Comparison chest 06/11/2018 TECHNIQUE: Chest PA and lateral FINDINGS: LUNGS: Minor bibasilar atelectasis. PLEURA: No significant pleural effusion identified. No pneumothorax apparent. CARDIOVASCULAR: No aortic atherosclerotic calcification present. Normal cardiac size. No pulmonary vascular congestion. OSSEOUS STRUCTURES: No significant abnormalities. VISUALIZED UPPER ABDOMEN: Normal. OTHER FINDINGS: None. IMPRESSION: Minor bibasilar atelectasis.
--- NOTE | 2018-06-15 12:33 | PN ---
DATE: 06/15/2018 SUBJECTIVE: I saw Gato in her bed in her room in the psychiatric floor. She is resting quietly. She slept well. She tells me she is in good spirits. She has taken the medications. She is participating in groups. She is in good spirits and she feels like she is getting better. OBJECTIVE: VITAL SIGNS: Temperature 98.3, 86 pulse, 129/87 blood pressure, 20 respiratory rate. HEENT: Head is atraumatic, normocephalic. HEART: Regular rate. LUNGS: Clear to auscultation. ABDOMEN: Soft, obese. EXTREMITIES: No edema. LABORATORY DATA: She has a 10 white count, came down nicely with no antibiotics; hemoglobin 11.8, hematocrit 36, platelets of 363 which is great. Last blood sugar was 208. She is not . Micro was clean. She was seen by Infectious Disease. When she came in she had a 17,000 white count, now it is 10. Mild bibasilar atelectasis. I will put her on some nebulizer treatments. Continue aggressive treatment and care medically also psychologically. I do think she is improving. Jason Contreras DO
[2018-06-15] MEDS: Albuterol-Ipratrop 3 mg / 0.5 (3 ml) UD IH SCH (14:09)
--- NOTE | 2018-06-15 14:14 | PCM.PYCHPN ---
Psychiatric Progress Note - Psychiatric Progress Note Patient seen today, length of contact: 30 minutes Patient Chief Complaint: "Dr. Brar, I was feeling very depressed, now I feel much better" Problems Identified/Issues Discussed: Risk/benefits and alternatives of medications discussed, suicide/ homicide prevention, past psychiatric h/o, current psychiatric symptoms, medical problems, risk/benefits and alternatives of medications, medications compliance, coping strategies, substance abuse h/o, relapse prevention, importance of follow up with psychiatrist and therapist, discharge plan. Medical Problems: Diabetes, hypertension, see medical team notes for more detailed information Diagnostic Results: 06/15/18 07:00 06/14/18 07:40 Lab Results 06/15/18 07:00: WBC 10.0 D, RBC 4.24, Hgb 11.8 L, Hct 36.0, MCV 84.9, MCH 27.8, MCHC 32.8, RDW 15.5 H, Plt Count 363, MPV 8.3 06/14/18 21:52: POC Glucose (mg/dL) 208 H 06/14/18 16:26: POC Glucose (mg/dL) 197 H 06/14/18 16:20: Urine HCG, Qual Negative 06/14/18 11:51: POC Glucose (mg/dL) 138 H 06/14/18 07:40: Sodium 138, Potassium 4.1, Chloride 104, Carbon Dioxide 26, Anion Gap 13, BUN 6 L, Creatinine 0.3 L, Est GFR ( Amer) > 60, Est GFR (Non-Af Amer) > 60, Random Glucose 177 H, Calcium 9.1, Total Bilirubin 0.2, AST 25, ALT 31, Alkaline Phosphatase 90, Total Protein 7.1, Albumin 4.0, Globulin 3.2, Albumin/Globulin Ratio 1.2 06/14/18 07:40: WBC 12.8 H D, RBC 4.19, Hgb 11.7 L, Hct 35.5 L, MCV 84.7, MCH 27.9, MCHC 33.0, RDW 15.6 H, Plt Count 341, MPV 8.4 06/14/18 07:33: POC Glucose (mg/dL) 162 H 06/14/18 00:00: Urine Color Yellow, Urine Appearance Clear, Urine pH 6.0, Ur Specific [place] 1.020, Urine Protein Negative, Urine Glucose (UA) Negative, Urine Ketones 15 H, Urine Blood Negative, Urine Nitrate Negative, Urine Bilirubin Negative, Urine Urobilinogen 0.2, Ur Leukocyte Esterase Negative 06/13/18 21:08: POC Glucose (mg/dL) 106 06/13/18 16:18: POC Glucose (mg/dL) 231 H 06/13/18 11:13: POC Glucose (mg/dL) 221 H 06/13/18 08:00: Sodium 137, Potassium 3.9, Chloride 102, Carbon Dioxide 26, Anion Gap 13, BUN 8, Creatinine 0.4 L, Est GFR ( Amer) > 60, Est GFR (Non-Af Amer) > 60, Random Glucose 209 H, Calcium 8.8, Total Bilirubin 0.2, AST 17, ALT 28, Alkaline Phosphatase 96, Total Protein 7.2, Albumin 4.0, Globulin 3.2, Albumin/Globulin Ratio 1.2 06/13/18 08:00: WBC 17.8 H D, RBC 4.18, Hgb 11.6 L, Hct 35.4 L, MCV 84.7, MCH 27.8, MCHC 32.8, RDW 15.3 H, Plt Count 343, MPV 8.7 06/13/18 07:25: POC Glucose (mg/dL) 197 H 06/12/18 21:26: POC Glucose (mg/dL) 166 H 06/12/18 16:15: POC Glucose (mg/dL) 231 H 06/12/18 11:08: POC Glucose (mg/dL) 254 H 06/12/18 07:30: RPR Nonreactive 06/12/18 07:30: TSH 3rd Generation 1.39 06/12/18 07:30: Fasting Glucose 202 H, Triglycerides 142, Cholesterol 146, LDL Cholesterol Direct 93, HDL Cholesterol 26 L 06/12/18 07:18: POC Glucose (mg/dL) 187 H 06/11/18 21:49: POC Glucose (mg/dL) 227 H 06/11/18 17:09: POC Glucose (mg/dL) 202 H 06/11/18 12:32: Urine Color Yellow, Urine Appearance Clear, Urine pH 6.5, Ur Specific [place] <= 1.005, Urine Protein Negative, Urine Glucose (UA) Negative, Urine Ketones Negative, Urine Blood Negative, Urine Nitrate Negative, Urine Bilirubin Negative, Urine Urobilinogen 0.2, Ur Leukocyte Esterase Negative 06/11/18 04:00: Urine Opiates Screen Negative, Urine Methadone Screen Negative, Ur Barbiturates Screen Negative, Ur Phencyclidine Scrn Negative, Ur Amphetamines Screen Negative, U Benzodiazepines Scrn Negative, U Oth Cocaine Metabols Negative, U Cannabinoids Screen Negative 06/11/18 03:35: WBC 13.0 H, RBC 4.39, Hgb 12.3, Hct 37.1, MCV 84.5, MCH 28.0, MCHC 33.2, RDW 15.3 H, Plt Count 367, MPV 8.6 06/11/18 03:35: Alcohol, Quantitative < 10 06/11/18 03:35: Sodium 138, Potassium 3.6, Chloride 102, Carbon Dioxide 25, Anio n Gap 15, BUN 13, Creatinine 0.4 L, Est GFR ( Amer) > 60, Est GFR (Non-Af Amer) > 60, Random Glucose 213 H, Calcium 9.9, Total Bilirubin 0.2, AST 27, ALT 33, Alkaline Phosphatase 100, Total Protein 8.2, Albumin 4.6, Globulin 3.6, Albumin/Globulin Ratio 1.3 Vital Signs Temp Pulse Resp BP Pulse Ox 06/15/18 09:35 129/87 06/15/18 07:15 98.3 F 86 20 129/87 06/14/18 16:30 100 H 134/98 H 06/14/18 08:42 127/88 06/14/18 07:20 98.3 F 91 H 20 127/88 06/13/18 16:00 105 H 141/99 H 06/13/18 08:49 123/73 06/13/18 06:55 98.2 F 96 H 20 123/73 06/12/18 15:00 102 H 127/90 06/12/18 10:24 128/84 06/12/18 07:00 97.8 F 84 20 128/84 06/11/18 16:00 94 H 20 130/93 H 06/11/18 11:10 98.6 F 78 17 126/76 06/11/18 06:39 82 18 122/72 98 06/11/18 03:18 98.6 F 72 16 128/84 99 DSM 5 Symptoms Update: Shortly patient is a 42 years old -[place] female, currently single and unemployed, history of schizophrenia, disorganized type, multiple psychiatric admissions in the past, patient currently under care of PACT team from [facility], came to the ED for evaluation of mood symptoms, complaining of depression and suicidal ideation, patient reported that she was thinking to kill herself "all day long", in the emergency room patient reported that she was noncompliant with her medications. Patient was verbalizing suicidal plan that she wants to cut her wrists. Possible medication adjustment. Patient is very familiar to this writer editor multiple admissions to the psychiatric inpatient unit, most recent was at [facility], patient was discharged on May 22, 2018, in this unit at [facility] patient was admitted on April 23 and was discharged on May 02, 2018. Patient was seen and examined today in her room. Patient is superficially cooperative, expressed no concerns, patient is self isolating, not participating in unit activities, have some psychomotor retardation. As per staff patient is self isolating, not injuring her regular activities such as watching TV, which is deviation from the previous admissions. Patient denied hearing voices, denied seeing things but in the emergency room patient reported that she hears voices to kill herself and others. Patient is still delusional about , erotomanic delusions. Patient has poor insight and judgment regarding her mental illness, has unrealistic plans that she wants to look for a job and volunteer in the residential for animals. So far patient tolerates medications well, no side effects observed or reported, aims 0, no EPS. We will check CBC with differential to rule out a granulocytosis, labs ordered for June 16, 2018 Impression: Anita versus schizoaffective disorder Medication Change: No Medical Record Reviewed: Yes Consults ordered or reviewed: Medical consult appreciated Patient was seen by infectious disease plan is: Blood and urine culture Chest x-ray Patient currently off antibiotics Mental Status Examination - Cognitive Function Orientation: Person, Place Attention: WNL Concentration: Poor Association: Loose Fund of Knowledge: Poor - Mood Mood: Neutral ("I am okay, doc") - Affect Affect: Flat - Speech Speech: Appropriate - Formal Thought Process Formal Thought Process: Hallucinations (denies), Delusions (Erotomanic) - Suicidal Ideation Suicidal Ideation: No - Homicidal Ideation Homicidal Ideation: No Goal/Treatment Plan - Goal/Treatment Plan Need for Continued Stay: Remain at risks for inpatient hospitalization, Severe depression anxiety, Discharge may exacerbated symptoms, Failed transitioning, Severe functional impairment Progress Toward Problem(s) and Goals/Treatment Plan: Milieu/structure/supportive therapy SW consultation for discharge plan and social issues Medical consult Med management: Depakote was d/c as per PACT Haldol Dec was d/c as per PACT Clozaril 200 mg p.o. twice daily psychosis Clazaril 200 mg p.o. nightly psychosis Trazodone 50 mg p.o. nightly We will check CBC with differential to rule out a granulocytosis, labs were ordered for tomorrow June 16, 2018 Medical meds resumed Family involvement Follow up on labs Will monitor closely Pt was educated about risk/benefits and alternatives of medications, coping strategies (safety plan, suicide prevention), relapse prevention, importance of follow up with psychiatrist and therapist, stay away from drugs/alcohol/smoking Estimated Date of D/C: 06/18/18
--- NOTE | 2018-06-15 14:33 | CP.PCM.PN ---
<Oscar Lundy - Last Filed: 06/15/18 14:39> Subjective - Date & Time of Evaluation Date of Evaluation: 06/15/18 Time of Evaluation: 09:30 - Subjective Subjective: ID Progress Note Patient seen and examined. No complaints. No fevers overnight. Objective - Vital Signs/Intake and Output Vital Signs (last 24 hours): Temp Pulse Resp BP Pulse Ox 98.3 F 98 H 20 129/87 98 06/15/18 07:15 06/15/18 14:07 06/15/18 07:15 06/15/18 09:35 06/11/18 06:39 - Medications Medications: Current Medications Albuterol/Ipratropium (Duoneb 3 Mg/0.5 Mg (3 Ml) Ud) 3 ml IH [id number] [facility] Last Admin: 06/15/18 14:09 Dose: 3 ml Amlodipine Besylate (Norvasc) 10 mg PO DAILY [facility] Last Admin: 06/15/18 09:35 Dose: 10 mg Aspirin (Ecotrin) 81 mg PO DAILY [facility] Last Admin: 06/15/18 09:37 Dose: 81 mg Atorvastatin Calcium (Lipitor) 20 mg PO DIN [facility] Last Admin: 06/14/18 16:35 Dose: 20 mg Clozapine (Clozaril) 200 mg PO HS [facility]; Protocol Last Admin: 06/14/18 21:39 Dose: 200 mg Clozapine (Clozaril) 200 mg PO BID [facility]; Protocol Last Admin: 06/15/18 09:36 Dose: 200 mg Metformin HCl (Glucophage) 1,000 mg PO BID [facility] Last Admin: 06/15/18 09:36 Dose: 1,000 mg Paroxetine HCl (Paxil) 20 mg PO DAILY [facility] Last Admin: 06/15/18 09:36 Dose: 20 mg Sitagliptin Phosphate (Januvia) 50 mg PO DAILY [facility] Last Admin: 06/15/18 09:36 Dose: 50 mg Trazodone HCl (Desyrel) 50 mg PO HS [facility] Last Admin: 06/14/18 21:40 Dose: 50 mg - Labs Labs: 06/15/18 07:00 06/14/18 07:40 - Constitutional Appears: Non-toxic, No Acute Distress - Head Exam Head Exam: ATRAUMATIC, NORMAL INSPECTION, NORMOCEPHALIC - Respiratory Exam Respiratory Exam: Clear to Ausculation Bilateral, NORMAL BREATHING PATTERN - Cardiovascular Exam Cardiovascular Exam: RRR, +S1, +S2 - GI/Abdominal Exam GI & Abdominal Exam: Soft, Normal Bowel Sounds. absent: Tenderness - Extremities Exam Extremities Exam: Normal Inspection. absent: Pedal Edema - Neurological Exam Neurological Exam: Alert, Awake, Oriented x3 - Psychiatric Exam Psychiatric exam: Normal Affect, Normal Mood - Skin Skin Exam: Intact, Normal Color, Warm Assessment and Plan - Assessment and Plan (Free Text) Plan: SIRS with no source of infection Hx of HTN Hx of HLD Hx of DM Hx of anxiety Hx of depression Hx of suicidal ideation Hx of anemia Plan Blood and urine cultures negative Chest x-ray negative Continue to monitor off of antibiotics Continue to monitor closely Kamron, PGY-3 <Michelet Whitt - Last Filed: 06/15/18 16:23> Objective - Vital Signs/Intake and Output Vital Signs (last 24 hours): Temp Pulse Resp BP Pulse Ox 98.3 F 98 H 20 129/87 98 06/15/18 07:15 06/15/18 14:07 06/15/18 07:15 06/15/18 09:35 06/11/18 06:39 - Medications Medications: Current Medications Albuterol/Ipratropium (Duoneb 3 Mg/0.5 Mg (3 Ml) Ud) 3 ml IH [id number] [facility] Last Admin: 06/15/18 14:09 Dose: 3 ml Amlodipine Besylate (Norvasc) 10 mg PO DAILY [facility] Last Admin: 06/15/18 09:35 Dose: 10 mg Aspirin (Ecotrin) 81 mg PO DAILY [facility] Last Admin: 06/15/18 09:37 Dose: 81 mg Atorvastatin Calcium (Lipitor) 20 mg PO DIN [facility] Last Admin: 06/14/18 16:35 Dose: 20 mg Clozapine (Clozaril) 200 mg PO HS [facility]; Protocol Last Admin: 06/14/18 21:39 Dose: 200 mg Clozapine (Clozaril) 200 mg PO BID [facility]; Protocol Last Admin: 06/15/18 09:36 Dose: 200 mg Metformin HCl (Glucophage) 1,000 mg PO BID [facility] Last Admin: 06/15/18 09:36 Dose: 1,000 mg Paroxetine HCl (Paxil) 20 mg PO DAILY [facility] Last Admin: 06/15/18 09:36 Dose: 20 mg Sitagliptin Phosphate (Januvia) 50 mg PO DAILY [facility] Last Admin: 06/15/18 09:36 Dose: 50 mg Trazodone HCl (Desyrel) 50 mg PO HS [facility] Last Admin: 06/14/18 21:40 Dose: 50 mg - Labs Labs: 06/15/18 07:00 06/14/18 07:40 Assessment and Plan - Assessment and Plan (Free Text) Plan: Infectious diseases Attending Physician Attestation Patient seen and examined, discussed with medical scientific liaison. I have reviewed the patient's history of present illness, past medical, social, personal and family histories, pertinent physical exam findings, course so far in this hospital admission, pertinent laboratory and imaging results. I agree with the above findings, assessment and plan. In addition, S/P SIRS with no obvious source of infection. WBC count is normalized, urine and blood cx are negative. Will continue to monitor off antibiotics.
[2018-06-16] MEDS: Albuterol-Ipratrop 3 mg / 0.5 (3 ml) UD IH SCH ×2 (02:00→20:50)
[2018-06-16 07:44] LABS: BASO # 0.03 K/mm3 (0.0-2.0); BASO % 0.3 % (0.0-3.0); EOS # 0.3 (0.0-0.7); EOS % 2.6 % (1.5-5.0); HEMOGLOBIN 11.7 g/dL (12.0-16.0); LYMPH # 3.9 (1.2-3.4); LYMPH % 40.2 % (22.0-35.0); MEAN CELL VOLUME 84.5 fl (80.0-105.0); MEAN CORPUSCULAR HEMOGLOBIN 27.5 pg (25.0-35.0); MEAN CORPUSCULAR HGB CONC 32.5 g/dl (31.0-37.0); MEAN PLATELET VOLUME 8.5 fl (7.0-11.0); MONO # 0.7 (0.1-0.6); MONO % 7.4 % (1.0-6.0); RBC 4.26 10^6/uL (3.5-6.1); RED CELL DISTRIBUTION WIDTH 15.6 % (11.5-14.5); WHITE BLOOD COUNT 9.8 10^3/uL (4.5-11.0)
--- NOTE | 2018-06-16 10:14 | PCM.PYCHPN ---
Psychiatric Progress Note - Psychiatric Progress Note Patient seen today, length of contact: 30 minutes Problems Identified/Issues Discussed: I reviewed recent notes and met with patient at bedside again. I am very familiar with patient from her numerous psychiatric admissions to this unit. She remains superficial and denies any new concerns. Patient indicates that she is feeling better. She continues to deny recurrence of hallucinations (in the emergency room patient reported that she heard voices to kill herself and others) or suicidal thoughts. States "I am just fine". Patient doesn't appear to be overtly bizarre or actively responding to internal stimuli. Nonetheless she appears a little odd, distracted and internally preoccupied. Has been eating and sleeping well. Nursing notes also indicates that patient has been in good control and generally pleasant on the unit. She is still spending a lot of time in her room, she is usually more visible and social by now. Delusions were not elicited by this provider though patient reportedly has a chronic delusion that she is in a relationship with a male named Mr. Paige. As usual there have been no behavioral issues on the unit. Diagnostic Results: Schizoaffective Disorder Medication Change: No Medical Record Reviewed: Yes Mental Status Examination - Cognitive Function Orientation: Person, Place Attention: WNL Concentration: Poor Association: Loose Fund of Knowledge: Poor - Mood Mood: Neutral ("I am okay, doc") - Affect Affect: Flat - Speech Speech: Appropriate - Formal Thought Process Formal Thought Process: Hallucinations (denies), Delusions (Erotomanic) - Suicidal Ideation Suicidal Ideation: No - Homicidal Ideation Homicidal Ideation: No Goal/Treatment Plan - Goal/Treatment Plan Need for Continued Stay: Remain at risks for inpatient hospitalization, Severe depression anxiety, Discharge may exacerbated symptoms, Failed transitioning, Severe functional impairment Progress Toward Problem(s) and Goals/Treatment Plan: * c/w current tx and plan * Vitals reviewed and noted below: Selected Entries 06/15/18 06/15/18 07:15 14:07 Temperature 98.3 F Pulse Rate 86 98 H Respiratory 20 Rate Blood Pressure 129/87 * Recent lab results noted below: Laboratory Results - last 24 hr 06/15/18 06/15/18 06/15/18 07:32 11:57 16:31 WBC RBC Hgb Hct MCV MCH MCHC RDW Plt Count MPV Neut % (Auto) Lymph % (Auto) [place] % (Auto) Eos % (Auto) Baso % (Auto) Lymph # (Auto) [place] # (Auto) Eos # (Auto) Baso # (Auto) Absolute Neuts (auto) POC Glucose (mg/dL) 168 H 115 H 138 H 06/15/18 06/16/18 20:37 06:50 WBC 9.8 RBC 4.26 Hgb 11.7 L Hct 36.0 MCV 84.5 MCH 27.5 MCHC 32.5 RDW 15.6 H Plt Count 387 MPV 8.5 Neut % (Auto) 49.5 L Lymph % (Auto) 40.2 H [place] % (Auto) 7.4 H Eos % (Auto) 2.6 Baso % (Auto) 0.3 Lymph # (Auto) 3.9 H [place] # (Auto) 0.7 H Eos # (Auto) 0.3 Baso # (Auto) 0.03 Absolute Neuts (auto) 4.85 POC Glucose (mg/dL) 217 H Laboratory Results - last 24 hr 06/12/18 06/13/18 06/13/18 07:30 08:00 08:00 WBC 17.8 H D RBC 4.18 Hgb 11.6 L Hct 35.4 L MCV 84.7 MCH 27.8 MCHC 32.8 RDW 15.3 H Plt Count 343 MPV 8.7 Sodium 137 Potassium 3.9 Chloride 102 Carbon Dioxide 26 Anion Gap 13 BUN 8 Creatinine 0.4 L Est GFR ( Amer) > 60 Est GFR (Non-Af Amer) > 60 Random Glucose 209 H Calcium 8.8 Total Bilirubin 0.2 AST 17 ALT 28 Alkaline Phosphatase 96 Total Protein 7.2 Albumin 4.0 Globulin 3.2 Albumin/Globulin Ratio 1.2 RPR Nonreactive Estimated Date of D/C: 06/18/18
--- NOTE | 2018-06-16 17:07 | PN ---
DATE: 06/16/2018 SUBJECTIVE: I saw her, resting comfortably in bed. She tells me she is afraid to walk. She is in the psychiatric floor. She feels that she is unsteady when she walks and she does not know what to do about it. I talked to her about it. We need to get physical therapy to get more stable and we gave her some instructions on how she can walk. She is 42 years old. She has been walking every day. So far, she is not weak. MEDICATIONS: She is Clozaril, Desyrel, DuoNeb, Ecotrin, Glucophage, Januvia, Lipitor, Norvasc, and Paxil. PHYSICAL EXAMINATION: VITAL SIGNS: She has 97.8 temperature, 84 pulse,121/79 blood pressure, 20 respiratory rate. HEENT: Head is atraumatic, normocephalic. HEART: Regular rate. LUNGS: Decreased breath sounds, but clear. ABDOMEN: Soft, obese. EXTREMITIES: No edema. She can move all 4 extremities well. She has good strength. LABORATORY DATA: She has 9.8 white count,11.7 hemoglobin, 36 hematocrit with 287 platelets. Last blood sugar was 199. She has 138 sodium, potassium 4.1, BUN 6, creatinine 0.3. GFR is greater than 60. Sugar, I guess, 197. Calcium 9.1, AST is 25, ALT is 31, and alkaline phosphatase is 90. Micro is negative. ASSESSMENT AND PLAN: She is being seen by Infectious Disease because when she came in, she had elevated white count, which came down nicely without any treatment. I do think she is improving psychologically. She will be followed off the antibiotics. I have ordered a physical therapy to see if we can get more stable on her feet. I gave her a lot of encouragement. Jason Contreras DO MTDD
--- NOTE | 2018-06-16 17:17 | CP.PCM.PN ---
Subjective - Date & Time of Evaluation Date of Evaluation: 06/16/18 Time of Evaluation: 13:50 - Subjective Subjective: No fevers, comfortable. Objective - Vital Signs/Intake and Output Vital Signs (last 24 hours): Temp Pulse Resp BP Pulse Ox 97.8 F 84 20 121/79 98 06/16/18 07:34 06/16/18 07:34 06/16/18 07:34 06/16/18 08:39 06/11/18 06:39 - Medications Medications: Current Medications Albuterol/Ipratropium (Duoneb 3 Mg/0.5 Mg (3 Ml) Ud) 3 ml IH [id number] [facility] Last Admin: 06/16/18 02:00 Dose: Not Given Amlodipine Besylate (Norvasc) 10 mg PO DAILY [facility] Last Admin: 06/16/18 08:39 Dose: 10 mg Aspirin (Ecotrin) 81 mg PO DAILY [facility] Last Admin: 06/16/18 08:40 Dose: 81 mg Atorvastatin Calcium (Lipitor) 20 mg PO DIN [facility] Last Admin: 06/15/18 16:30 Dose: 20 mg Clozapine (Clozaril) 200 mg PO HS [facility]; Protocol Last Admin: 06/15/18 21:25 Dose: 200 mg Clozapine (Clozaril) 200 mg PO BID [facility]; Protocol Last Admin: 06/16/18 08:40 Dose: 200 mg Metformin HCl (Glucophage) 1,000 mg PO BID [facility] Last Admin: 06/16/18 08:39 Dose: 1,000 mg Paroxetine HCl (Paxil) 20 mg PO DAILY [facility] Last Admin: 06/16/18 08:39 Dose: 20 mg Sitagliptin Phosphate (Januvia) 50 mg PO DAILY [facility] Last Admin: 06/16/18 08:39 Dose: 50 mg Trazodone HCl (Desyrel) 50 mg PO HS [facility] Last Admin: 06/15/18 21:25 Dose: 50 mg - Labs Labs: 06/16/18 06:50 06/14/18 07:40 - Constitutional Appears: Chronically Ill - Head Exam Head Exam: NORMAL INSPECTION - Respiratory Exam Respiratory Exam: Decreased Breath Sounds - Cardiovascular Exam Cardiovascular Exam: +S1, +S2 - GI/Abdominal Exam GI & Abdominal Exam: Soft. absent: Tenderness Assessment and Plan - Assessment and Plan (Free Text) Plan: Assessment S/P Leukocytosis without evidence of infectious process bipolar disorder schizophrenia schizoaffective disorder DM Plan Will continue to monitor off antibiotics - cultures have been negative, CXR does not show infiltrates and WBC count has normalized
[2018-06-17] MEDS: Albuterol-Ipratrop 3 mg / 0.5 (3 ml) UD IH SCH ×3 (08:19→20:47)
--- NOTE | 2018-06-17 09:06 | PCM.PYCHPN ---
Psychiatric Progress Note - Psychiatric Progress Note Patient seen today, length of contact: 30 minutes Problems Identified/Issues Discussed: I reviewed recent notes. I am very familiar with patient from her numerous psychiatric admissions to this unit. Patient is feeling better and denies rec urrence of hallucinations (in the emergency room patient reported that she heard voices to kill herself and others) or suicidal thoughts. States "I am just fine". Patient doesn't appear to be overtly bizarre or actively responding to internal stimuli. Nonetheless she appears a little odd, distracted and internally preoccupied. Has been eating and sleeping well. Nursing notes also indicates that patient has been in good control and generally pleasant on the unit. She is more spending time in the unit and appears brighter and cheerful. Delusions were not elicited by this provider though patient reportedly has a chronic delusion that she is in a relationship with a male named Mr. Paige. As usual there have been no behavioral issues on the unit. Diagnostic Results: Schizoaffective Disorder Medication Change: No Medical Record Reviewed: Yes Mental Status Examination - Cognitive Function Orientation: Person, Place, Situation Attention: WNL Concentration: Poor Association: Loose Fund of Knowledge: Poor - Mood Mood: Neutral ("I am just fine") - Affect Affect: Flat - Speech Speech: Appropriate - Formal Thought Process Formal Thought Process: Hallucinations (denies), Delusions (Erotomanic) - Suicidal Ideation Suicidal Ideation: No - Homicidal Ideation Homicidal Ideation: No Goal/Treatment Plan - Goal/Treatment Plan Need for Continued Stay: Remain at risks for inpatient hospitalization, Severe depression anxiety, Discharge may exacerbated symptoms, Failed transitioning, Severe functional impairment Progress Toward Problem(s) and Goals/Treatment Plan: * c/w current tx and plan * Appreciate f/u by Dr. Whitt ~Will monitor patient off abx, CXR without infiltrates, cultures are negative and white count has normalized. * Appreciate f/u by Dr. Contreras on 06/16/18~Have ordered PT for patient. * Vitals reviewed and noted below: Selected Entries 06/16/18 06/16/18 07:34 16:30 Temperature 97.8 F Pulse Rate 84 104 H Respiratory 20 Rate Blood Pressure 121/79 132/91 H * Recent lab results noted below: Laboratory Results - last 72 hr 06/14/18 06/14/18 06/14/18 11:51 16:20 16:26 WBC RBC Hgb Hct MCV MCH MCHC RDW Plt Count MPV Neut % (Auto) Lymph % (Auto) [place] % (Auto) Eos % (Auto) Baso % (Auto) Lymph # (Auto) [place] # (Auto) Eos # (Auto) Baso # (Auto) Absolute Neuts (auto) POC Glucose (mg/dL) 138 H 197 H Urine HCG, Qual Negative 06/14/18 06/15/18 06/15/18 21:52 07:00 07:32 WBC 10.0 D RBC 4.24 Hgb 11.8 L Hct 36.0 MCV 84.9 MCH 27.8 MCHC 32.8 RDW 15.5 H Plt Count 363 MPV 8.3 Neut % (Auto) Lymph % (Auto) [place] % (Auto) Eos % (Auto) Baso % (Auto) Lymph # (Auto) [place] # (Auto) Eos # (Auto) Baso # (Auto) Absolute Neuts (auto) POC Glucose (mg/dL) 208 H 168 H Urine HCG, Qual 06/15/18 06/15/18 06/15/18 11:57 16:31 20:37 WBC RBC Hgb Hct MCV MCH MCHC RDW Plt Count MPV Neut % (Auto) Lymph % (Auto) [place] % (Auto) Eos % (Auto) Baso % (Auto) Lymph # (Auto) [place] # (Auto) Eos # (Auto) Baso # (Auto) Absolute Neuts (auto) POC Glucose (mg/dL) 115 H 138 H 217 H Urine HCG, Qual 06/16/18 06/16/18 06/16/18 06:50 07:28 11:14 WBC 9.8 RBC 4.26 Hgb 11.7 L Hct 36.0 MCV 84.5 MCH 27.5 MCHC 32.5 RDW 15.6 H Plt Count 387 MPV 8.5 Neut % (Auto) 49.5 L Lymph % (Auto) 40.2 H [place] % (Auto) 7.4 H Eos % (Auto) 2.6 Baso % (Auto) 0.3 Lymph # (Auto) 3.9 H [place] # (Auto) 0.7 H Eos # (Auto) 0.3 Baso # (Auto) 0.03 Absolute Neuts (auto) 4.85 POC Glucose (mg/dL) 199 H 186 H Urine HCG, Qual 06/16/18 06/16/18 16:26 21:08 WBC RBC Hgb Hct MCV MCH MCHC RDW Plt Count MPV Neut % (Auto) Lymph % (Auto) [place] % (Auto) Eos % (Auto) Baso % (Auto) Lymph # (Auto) [place] # (Auto) Eos # (Auto) Baso # (Auto) Absolute Neuts (auto) POC Glucose (mg/dL) 189 H 167 H Urine HCG, Qual Laboratory Results - last 24 hr 06/15/18 06/15/18 06/15/18 07:32 11:57 16:31 WBC RBC Hgb Hct MCV MCH MCHC RDW Plt Count MPV Neut % (Auto) Lymph % (Auto) [place] % (Auto) Eos % (Auto) Baso % (Auto) Lymph # (Auto) [place] # (Auto) Eos # (Auto) Baso # (Auto) Absolute Neuts (auto) POC Glucose (mg/dL) 168 H 115 H 138 H 06/15/18 06/16/18 20:37 06:50 WBC 9.8 RBC 4.26 Hgb 11.7 L Hct 36.0 MCV 84.5 MCH 27.5 MCHC 32.5 RDW 15.6 H Plt Count 387 MPV 8.5 Neut % (Auto) 49.5 L Lymph % (Auto) 40.2 H [place] % (Auto) 7.4 H Eos % (Auto) 2.6 Baso % (Auto) 0.3 Lymph # (Auto) 3.9 H [place] # (Auto) 0.7 H Eos # (Auto) 0.3 Baso # (Auto) 0.03 Absolute Neuts (auto) 4.85 POC Glucose (mg/dL) 217 H Laboratory Results - last 24 hr 06/12/18 06/13/18 06/13/18 07:30 08:00 08:00 WBC 17.8 H D RBC 4.18 Hgb 11.6 L Hct 35.4 L MCV 84.7 MCH 27.8 MCHC 32.8 RDW 15.3 H Plt Count 343 MPV 8.7 Sodium 137 Potassium 3.9 Chloride 102 Carbon Dioxide 26 Anion Gap 13 BUN 8 Creatinine 0.4 L Est GFR ( Amer) > 60 Est GFR (Non-Af Amer) > 60 Random Glucose 209 H Calcium 8.8 Total Bilirubin 0.2 AST 17 ALT 28 Alkaline Phosphatase 96 Total Protein 7.2 Albumin 4.0 Globulin 3.2 Albumin/Globulin Ratio 1.2 RPR Nonreactive Estimated Date of D/C: 06/18/18
--- NOTE | 2018-06-17 14:35 | PN ---
DATE: 06/17/2018 SUBJECTIVE: I saw her in the psych floor, in her bed, sleeping. MEDICATIONS: She is on Clozaril, Desyrel, DuoNebs, Ecotrin, Glucophage, Januvia, Lipitor, Norvasc, and Paxil. PHYSICAL EXAMINATION: GENERAL: She is very pleasant, calm. She tells me she is feeling a little bit better. She is eating well. She is walking okay, the other day she was scared to walk. VITAL SIGNS: She has 97.8 temperature, 84 pulse, 121/79 blood pressure, respiratory rate. HEAD: Atraumatic, normocephalic. HEART: Regular rate. LUNGS: Clear to auscultation. ABDOMEN: Soft, obese. EXTREMITIES: No edema. LABORATORY DATA: She had lab, 9.8 white count, best it has been, 11.7 hemoglobin, 36 hematocrit with 387 platelets. Last blood sugar was 188, they all have been above 167 up to 217, have to adjust her medications for diabetes. Negative for . Negative urine. Negative toxicology. Negative RPR. Micro was clean. ASSESSMENT AND PLAN: She is being seen by Infectious Disease because when she came in the white count was 17, but definitely improved. She is on metformin 1000 twice a day, I will increase her Januvia to 100 mg from 50 and we will see how she improves with the blood sugar. Continue as per Psychiatry. Continue check her blood sugars. Encouraged her to participate in psych groups and take her medication. Jason Contreras DO MTDD
[2018-06-18 07:06] VITALS: BP 124/76; PULSE 76; TEMP 97.9
[2018-06-18] MEDS: Albuterol-Ipratrop 3 mg / 0.5 (3 ml) UD IH SCH (08:39)
--- NOTE | 2018-06-18 09:14 | PN ---
DATE: 06/17/2018 SUBJECTIVE: Mrs. Gato Garces, I have seen her earlier today in 517. No fevers. No chills. No nausea. No vomiting. PHYSICAL EXAMINATION VITAL SIGNS: Temperature 98, blood pressure 130/90, and respiratory rate of 18. HEENT: Unremarkable. NECK: Supple. LUNGS: Decreased breath sounds. HEART: Normal S1 and S2. ABDOMEN: Soft. LABORATORY DATA: Reveals a white count of 9.8 and hemoglobin of 11. Chemistries are noted. ASSESSMENT AND PLAN: This is a 42-year-old female status post leukocytosis without any evidence of infectious process, who is bipolar, schizophrenia, diabetic, off of antibiotics. Review of orders reveals that the patient to be off of antibiotics. The patient's last white count as of yesterday was 9.8. The patient is at risk for developing nosocomial infection. Cecil Pat MD
--- NOTE | 2018-06-18 12:50 | PN ---
DATE: 06/18/2018 SUBJECTIVE: I saw her resting comfortably in bed in the psychiatric floor. She has no complaints. She slept well, in good spirits. She is trying to eat well. She is trying to , said she is taking her meds. She is on Clozaril, Desyrel, DuoNebs, Ecotrin, Glucophage, Januvia, Lipitor, Norvasc and Paxil. PHYSICAL EXAMINATION: VITAL SIGNS: Temperature 97.9, 76 pulse, 124/76 blood pressure, 20 respiratory rate. HEAD: Atraumatic, normocephalic. HEART: Regular rate. LUNGS: Clear to auscultation. ABDOMEN: Soft, obese, nontender. LABORATORY DATA: She has a white count 9.8, hemoglobin 11.7, hematocrit 36, platelets of 387. She has a last blood sugar was 170. Urine was clean. Negative . Micro was negative. PLAN: Overall, I am happy with her. We will continue with aggressive treatment and care. Encouragement with participating in groups and taking her medications. She had depression, suicidal ideation, schizophrenia, leukocytosis, high cholesterol, diabetes. Jason Contreras DO MTDD
--- NOTE | 2018-06-18 15:09 | CP.PCM.PN ---
<Oscar Lundy - Last Filed: 06/18/18 15:07> Subjective - Date & Time of Evaluation Date of Evaluation: 06/18/18 Time of Evaluation: 07:45 - Subjective Subjective: ID Progress Note Patient seen and examined. No acute complaints. No fevers. Objective - Vital Signs/Intake and Output Vital Signs (last 24 hours): Temp Pulse Resp BP Pulse Ox 97.9 F 76 20 124/76 98 06/18/18 07:00 06/18/18 07:00 06/18/18 07:00 06/18/18 09:12 06/11/18 06:39 - Labs Labs: 06/16/18 06:50 06/14/18 07:40 - Constitutional Appears: Non-toxic, No Acute Distress - Head Exam Head Exam: ATRAUMATIC, NORMAL INSPECTION, NORMOCEPHALIC - Respiratory Exam Respiratory Exam: Decreased Breath Sounds, NORMAL BREATHING PATTERN - Cardiovascular Exam Cardiovascular Exam: RRR, +S1, +S2 - GI/Abdominal Exam GI & Abdominal Exam: Soft, Normal Bowel Sounds. absent: Tenderness - Extremities Exam Extremities Exam: Normal Inspection. absent: Pedal Edema - Neurological Exam Neurological Exam: Alert, Awake, Oriented x3 - Psychiatric Exam Psychiatric exam: Normal Affect, Normal Mood - Skin Skin Exam: Intact, Normal Color, Warm Assessment and Plan - Assessment and Plan (Free Text) Plan: SIRS with no source of infection Hx of HTN Hx of HLD Hx of DM Hx of anxiety Hx of depression Hx of suicidal ideation Hx of anemia Plan WBC normalized Blood and urine cultures negative Chest x-ray with no active disease Will monitor off antibiotics at this time Kamron PGY-3 <Michelet Whitt - Last Filed: 06/18/18 18:28> Objective - Vital Signs/Intake and Output Vital Signs (last 24 hours): Temp Pulse Resp BP Pulse Ox 97.9 F 76 20 124/76 98 06/18/18 07:00 06/18/18 07:00 06/18/18 07:00 06/18/18 09:12 06/11/18 06:39 - Labs Labs: 06/16/18 06:50 06/14/18 07:40 Assessment and Plan - Assessment and Plan (Free Text) Plan: Infectious diseases Attending Physician Attestation Patient seen and examined, discussed with medical lead. I have reviewed the patient's history of present illness, past medical, social, personal and family histories, pertinent physical exam findings, course so far in this hospital admission, pertinent laboratory and imaging results. I agree with the above findings, assessment and plan.
--- NOTE | 2018-06-18 17:04 | PCM.PYCHDC ---
Mental Status Examination - Mental Status Examination Orientation: Person, Place, Situation, Time Memory: Intact Mood: Neutral Affect: Broad Speech: Appropriate (But underproductive) Attention: Poor (with some improvement but baseline) Concentration: Poor (With some improvement but it is baseline) Association: Loose (Baseline) Fund of Knowledge: Poor (Baseline) Formal Thought Process: Circumstantial, Perservation Description of patient's judgement and insight: Patient has fair insight into her mental illness of those medical issues, patient was compliant with her medications and unit rules and regulations, no aggression, no agitation. Psychotic Thoughts and Behaviors: Pt denied v/a/t hallucinations, denied paranoid ideations, pt has residual symptoms of psychosis, disorganized thoughts, erotomanic delusions, but it seems baseline. Suicidal Ideation: No Current Homicidal Ideation?: No Plan: pt adamantly denied thoughts of harming self or others denied intent or plan. Discharge Summary - Discharge Note Reason for Hospitalization: Patient was admitted to the psychiatric inpatient unit for evaluation and stabilization of depressive symptoms, patient was not able to contract for safety, patient verbalized thoughts of harming herself and others. Please see emergency room notes for more detailed information. Psychiatric History (includes Medical, Family, Personal Hx): As per HPI Laboratory Data: Abnormal Lab Results 06/17/18 06/17/18 06/18/18 15:53 21:07 07:49 POC Glucose (mg/dL) 137 H 163 H 170 H 06/18/18 11:38 POC Glucose (mg/dL) 160 H 06/16/18 06:50 06/14/18 07:40 Lab Results 06/18/18 11:38: POC Glucose (mg/dL) 160 H 06/18/18 07:49: POC Glucose (mg/dL) 170 H 06/17/18 21:07: POC Glucose (mg/dL) 163 H 06/17/18 15:53: POC Glucose (mg/dL) 137 H 06/17/18 11:54: POC Glucose (mg/dL) 138 H 06/17/18 07:33: POC Glucose (mg/dL) 188 H 06/16/18 21:08: POC Glucose (mg/dL) 167 H 06/16/18 16:26: POC Glucose (mg/dL) 189 H 06/16/18 11:14: POC Glucose (mg/dL) 186 H 06/16/18 07:28: POC Glucose (mg/dL) 199 H 06/16/18 06:50: WBC 9.8, RBC 4.26, Hgb 11.7 L, Hct 36.0, MCV 84.5, MCH 27.5, MCHC 32.5, RDW 15.6 H, Plt Count 387, MPV 8.5, Neut % (Auto) 49.5 L, Lymph % (Auto) 40.2 H, [place] % (Auto) 7.4 H, Eos % (Auto) 2.6, Baso % (Auto) 0.3, Lymph # (Auto) 3.9 H, [place] # (Auto) 0.7 H, Eos # (Auto) 0.3, Baso # (Auto) 0.03, Absolute Neuts (auto) 4.85 06/15/18 20:37: POC Glucose (mg/dL) 217 H 06/15/18 16:31: POC Glucose (mg/dL) 138 H 06/15/18 11:57: POC Glucose (mg/dL) 115 H 06/15/18 07:32: POC Glucose (mg/dL) 168 H 06/15/18 07:00: WBC 10.0 D, RBC 4.24, Hgb 11.8 L, Hct 36.0, MCV 84.9, MCH 27.8, MCHC 32.8, RDW 15.5 H, Plt Count 363, MPV 8.3 06/14/18 21:52: POC Glucose (mg/dL) 208 H 06/14/18 16:26: POC Glucose (mg/dL) 197 H 06/14/18 16:20: Urine HCG, Qual Negative 06/14/18 11:51: POC Glucose (mg/dL) 138 H 06/14/18 07:40: Sodium 138, Potassium 4.1, Chloride 104, Carbon Dioxide 26, Anion Gap 13, BUN 6 L, Creatinine 0.3 L, Est GFR ( Amer) > 60, Est GFR (Non-Af Amer) > 60, Random Glucose 177 H, Calcium 9.1, Total Bilirubin 0.2, AST 25, ALT 31, Alkaline Phosphatase 90, Total Protein 7.1, Albumin 4.0, Globulin 3.2, Albumin/Globulin Ratio 1.2 06/14/18 07:40: WBC 12.8 H D, RBC 4.19, Hgb 11.7 L, Hct 35.5 L, MCV 84.7, MCH 27.9, MCHC 33.0, RDW 15.6 H, Plt Count 341, MPV 8.4 06/14/18 07:33: POC Glucose (mg/dL) 162 H 06/14/18 00:00: Urine Color Yellow, Urine Appearance Clear, Urine pH 6.0, Ur Specific [place] 1.020, Urine Protein Negative, Urine Glucose (UA) Negative, Urine Ketones 15 H, Urine Blood Negative, Urine Nitrate Negative, Urine Bilirubin Negative, Urine Urobilinogen 0.2, Ur Leukocyte Esterase Negative 06/13/18 21:08: POC Glucose (mg/dL) 106 06/13/18 16:18: POC Glucose (mg/dL) 231 H 06/13/18 11:13: POC Glucose (mg/dL) 221 H 06/13/18 08:00: Sodium 137, Potassium 3.9, Chloride 102, Carbon Dioxide 26, Anion Gap 13, BUN 8, Creatinine 0.4 L, Est GFR ( Amer) > 60, Est GFR (Non-Af Amer) > 60, Random Glucose 209 H, Calcium 8.8, Total Bilirubin 0.2, AST 17, ALT 28, Alkaline Phosphatase 96, Total Protein 7.2, Albumin 4.0, Globulin 3.2, Albumin/Globulin Ratio 1.2 06/13/18 08:00: WBC 17.8 H D, RBC 4.18, Hgb 11.6 L, Hct 35.4 L, MCV 84.7, MCH 27.8, MCHC 32.8, RDW 15.3 H, Plt Count 343, MPV 8.7 06/13/18 07:25: POC Glucose (mg/dL) 197 H 06/12/18 21:26: POC Glucose (mg/dL) 166 H 06/12/18 16:15: POC Glucose (mg/dL) 231 H 06/12/18 11:08: POC Glucose (mg/dL) 254 H 06/12/18 07:30: RPR Nonreactive 06/12/18 07:30: TSH 3rd Generation 1.39 06/12/18 07:30: Fasting Glucose 202 H, Triglycerides 142, Cholesterol 146, LDL Cholesterol Direct 93, HDL Cholesterol 26 L 06/12/18 07:18: POC Glucose (mg/dL) 187 H 06/11/18 21:49: POC Glucose (mg/dL) 227 H 06/11/18 17:09: POC Glucose (mg/dL) 202 H 06/11/18 12:32: Urine Color Yellow, Urine Appearance Clear, Urine pH 6.5, Ur Specific [place] <= 1.005, Urine Protein Negative, Urine Glucose (UA) Negative, Urine Ketones Negative, Urine Blood Negative, Urine Nitrate Negative, Urine Bilirubin Negative, Urine Urobilinogen 0.2, Ur Leukocyte Esterase Negative 06/11/18 04:00: Urine Opiates Screen Negative, Urine Methadone Screen Negative, Ur Barbiturates Screen Negative, Ur Phencyclidine Scrn Negative, Ur Amphetamines Screen Negative, U Benzodiazepines Scrn Negative, U Oth Cocaine Metabols Negative, U Cannabinoids Screen Negative 06/11/18 03:35: WBC 13.0 H, RBC 4.39, Hgb 12.3, Hct 37.1, MCV 84.5, MCH 28.0, MCHC 33.2, RDW 15.3 H, Plt Count 367, MPV 8.6 06/11/18 03:35: Alcohol, Quantitative < 10 06/11/18 03:35: Sodium 138, Potassium 3.6, Chloride 102, Carbon Dioxide 25, Anion Gap 15, BUN 13, Creatinine 0.4 L, Est GFR ( Amer) > 60, Est GFR (Non-Af Amer) > 60, Random Glucose 213 H, Calcium 9.9, Total Bilirubin 0.2, AST 27, ALT 33, Alkaline Phosphatase 100, Total Protein 8.2, Albumin 4.6, Globulin 3.6, Albumin/Globulin Ratio 1.3 Vital Signs Temp Pulse Resp BP Pulse Ox 06/18/18 09:12 124/76 06/18/18 07:00 97.9 F 76 20 124/76 06/17/18 16:00 95 H 120/82 06/17/18 09:09 132/91 H 06/16/18 16:30 104 H 132/91 H 06/16/18 08:39 121/79 06/16/18 07:34 97.8 F 84 20 121/79 06/15/18 14:07 98 H 06/15/18 09:35 129/87 06/15/18 07:15 98.3 F 86 20 129/87 06/14/18 16:30 100 H 134/98 H 06/14/18 08:42 127/88 06/14/18 07:20 98.3 F 91 H 20 127/88 06/13/18 16:00 105 H 141/99 H 06/13/18 08:49 123/73 06/13/18 06:55 98.2 F 96 H 20 123/73 06/12/18 15:00 102 H 127/90 06/12/18 10:24 128/84 06/12/18 07:00 97.8 F 84 20 128/84 06/11/18 16:00 94 H 20 130/93 H 06/11/18 11:10 98.6 F 78 17 126/76 06/11/18 06:39 82 18 122/72 98 06/11/18 03:18 98.6 F 72 16 128/84 99 Consultations:: List each consultation separately and include: 1. Reason for request. 2. Findings. 3. Follow-up Consultations: Medical consult appreciated Patient was seen by infectious disease plan is: Blood and urine culture Chest x-ray Patient currently was antibiotics Summary of Hospital Course include:: 1. Description of specific treatment plan utilized for patients during their course of treatmen. 2. Summarize the time- course for resolution of acute symptoms and/or regressed behaviors. 3. Describe issues identified and worked on during hospitalization. 4. Describe medication utilized. 5. Describe medical problems identified and treated. 6. Reassessment of suicide risk Summary of Hospital Course: Shortly patient is a 42 years old -[place]ong[place] female, currently single and unemployed, history of schizophrenia, disorganized type, multiple psychiatric admissions in the past, patient currently under care of PACT team from [facility], came to the ED for evaluation of mood symptoms, complaining of depression and suicidal ideation, patient reported that she was thinking to kill herself "all day long", in the emergency room patient reported that she was noncompliant with her medications. Patient was verbalizing suicidal plan that she wants to cut her wrists. Possible medication adjustment required. 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 Lani LI from PACT team contacted. Medication list confirmed, meds resumed. As per collateral's patient pt was admitted to [facility] [place] two [place] and was d/c within two days. Patient was continued on the following medications: Depakote was d/c as per PACT Haldol Dec was d/c as per PACT Clozaril 200 mg p.o. twice daily psychosis Clazaril 200 mg p.o. nightly psychosis Trazodone 50 mg p.o. nightly for depression and insomnia Patient tolerated medications well, no signs of a granulocytosis, aims 0, no EPS. 06/11/18 03:35 06/11/18 03:35 Lab Results 06/12/18 07:30: TSH 3rd Generation 1.39 06/12/18 07:30: Fasting Glucose 202 H, Triglycerides 142, Cholesterol 146, LDL Cholesterol Direct 93, HDL Cholesterol 26 L 06/11/18 12:32: Urine Color Yellow, Urine Appearance Clear, Urine pH 6.5, Ur Specific [place] <= 1.005, Urine Protein Negative, Urine Glucose (UA) Negative, Urine Ketones Negative, Urine Blood Negative, Urine Nitrate Negative, Urine Bilirubin Negative, Urine Urobilinogen 0.2, Ur Leukocyte Esterase Negative 06/11/18 04:00: Urine Opiates Screen Negative, Urine Methadone Screen Negative, Ur Barbiturates Screen Negative, Ur Phencyclidine Scrn Negative, Ur Amphetamines Screen Negative, U Benzodiazepines Scrn Negative, U Oth Cocaine Metabols Negative, U Cannabinoids Screen Negative 06/11/18 03:35: WBC 13.0 H, RBC 4.39, Hgb 12.3, Hct 37.1, MCV 84.5, MCH 28.0, MCHC 33.2, RDW 15.3 H, Plt Count 367, MPV 8.6 06/11/18 03:35: Alcohol, Quantitative < 10 06/11/18 03:35: Sodium 138, Potassium 3.6, Chloride 102, Carbon Dioxide 25, Anion Gap 15, BUN 13, Creatinine 0.4 L, Est GFR ( Amer) > 60, Est GFR (Non-Af Amer) > 60, Random Glucose 213 H, Calcium 9.9, Total Bilirubin 0.2, AST 27, ALT 33, Alkaline Phosphatase 100, Total Protein 8.2, Albumin 4.6, Globulin 3.6, Albumin/Globulin Ratio 1.3 Vital Signs Temp Pulse Resp BP Pulse Ox 06/12/18 10:24 128/84 06/12/18 07:00 97.8 F 84 20 128/84 06/11/18 16:00 94 H 20 130/93 H 06/11/18 11:10 98.6 F 78 17 126/76 06/11/18 06:39 82 18 122/72 98 06/11/18 03:18 98.6 F 72 16 128/84 99 Patient observed for past week, patient was not aggressive, not agitated, patient presented at her baseline of functioning. At the time of the discharge patient pose no imminent danger to self or others, will be following up with [facility] PACT team. It is a patient's and her team responsibility to follow up with outpatient clinic, PMD as well as specialists In case patient will need to obtain results of studies pending at discharge, patient was provided with contact information of Psychiatric Inpatient unit [phone] as well as Medical Record Department [phone], as well as [facility] team [phone]. Patient does not use any drugs, denies smoking, denied drinking alcohol. pt was provided with prescriptions for two weeks and one refill for psychotropic meds and one week for medical meds (see medication reconciliation form) Pt was educated about safety plan in case of worsening of symptoms or in case of suicidal or homicidal ideation call 911 or go to the nearest ER, also was educated to take meds as prescribed and stay away from drugs, pt verbalized understanding. - Diagnosis (1) Schizophrenia Status: Chronic Priority: High Comment: Management as per Psyche - Final Diagnosis (DSM 5) Condition upon Discharge: STABLE Disposition: HOME/ ROUTINE Follow-up Treatment Plan: At the time of the discharge patient pose no imminent danger to self or others, will be following up with [facility] PACT team. It is a patient's and her team responsibility to follow up with outpatient clinic, PMD as well as specialists In case patient will need to obtain results of studies pending at discharge, patient was provided with contact information of Psychiatric Inpatient unit [phone] as well as Medical Record Department [phone], as well as [facility] team [phone]. Patient does not use any drugs, denies smoking, denied drinking alcohol. pt was provided with prescriptions for two weeks and one refill for psychotropic meds and one week for medical meds (see medication reconciliation form) Pt was educated about safety plan in case of worsening of symptoms or in case of suicidal or homicidal ideation call 911 or go to the nearest ER, also was educated to take meds as prescribed and stay away from drugs, pt verbalized understanding. - Smoking Cessation Smoking Cessation Medication prescribed: No Reason for not providing: Patient denied smoking - Antipsychotic Medications Pt discharged on 2 or more routine antipsychotic medications: No
== END 2018-06-18 14:22 | disposition home or self-care (01) | DRG 885 ==
LOC: ED 03:16 → ERH 08:42 → PSYC 11:05
PROVIDERS: ADMIT Psychiatry & Neurology Psychiatry; ATTEND Psychiatry & Neurology Psychiatry
DX: F25.9 Schizoaffective disorder, unspecified (principal); F32.9 Major depressive disorder, single episode, unspecified; E11.9 Type 2 diabetes mellitus without complications; I10 Essential (primary) hypertension; E78.5 Hyperlipidemia, unspecified; R56.9 Unspecified convulsions; D64.9 Anemia, unspecified; D72.829 Elevated white blood cell count, unspecified; Z79.84 Long term (current) use of oral hypoglycemic drugs; Z91.14 Patient's other noncompliance with medication regimen; Z79.82 Long term (current) use of aspirin

== ENCOUNTER 2018-08-19 17:17 | Inpatient (IN) | payer MEDICARE, MEDICAID ==
[2018-08-19 17:17] VITALS: BMI 29.7
--- NOTE | 2018-08-19 17:42 | ED PDOC ---
Arrival/HPI - General Chief Complaint: Psychiatric Evaluation Time Seen by Provider: 08/19/18 17:25 Historian: Patient - History of Present Illness Narrative History of Present Illness (Text): 08/19/18 17:39 42 F with pmh of schizophrenia, anxiety, depression, hypertension, hyperlipidemia, diabetes, and anemia presents with chief complaint of suicidal ideation since yesterday. Patient reports she attempted suicide by cutting her left hand. She denies any OD of any medications to hurt herself. Patient also complains of auditory hallucinations advising her to commit suicide. Patient denies homicidal ideation, use of drugs or ETOH. Patient notes she is up to date with tetanus shot. Patient mentions she is non complaint with schizophrenia medications. Patient presented last on 07/31/18 for similar complaint of suicidal ideation, evaluated by [facility], discharged and instructed to follow up in PACT program. Patient denies any fevers, chills, headache, dizziness, cough, chest pain, abdominal pain, nausea, vomiting, diarrhea, back pain, neck pain, or any other complaint. Time/Duration: 24 hours Symptom Onset: Sudden Symptom Course: Unchanged Activities at Onset: Light Context: Home Past Medical History - Provider Review Nursing Documentation Reviewed: Yes - Past History Past History: Non-Contributing - Infectious Disease Hx of Infectious Diseases: None - Tetanus Immunization Tetanus Immunization: Unknown - Reproductive Menopause: No - Cardiac Hx Hypertension: No - Neurological Hx Seizures: No - HEENT Hx HEENT Disorder: No - Renal Hx Renal Disorder: No - Endocrine/Metabolic Hx Endocrine Disorders: Yes Hx Diabetes Mellitus Type 2: Yes - Hematological/Oncological Hx Anemia: Yes - Integumentary Hx Dermatological Disorder: No - Musculoskeletal/Rheumatological Hx Musculoskeletal Disorders: No - Gastrointestinal Hx Gastrointestinal Disorders: No - Genitourinary/Gynecological Hx Sexually Transmitted Diseases: No - Psychiatric Hx Anxiety: Yes Hx Bipolar Disorder: Yes Hx Depression: Yes Hx Schizophrenia: Yes Hx Substance Use: No - Anesthesia Hx Anesthesia: No Hx Anesthesia Reactions: No Hx Malignant Hyperthermia: No - Suicidal Assessment Feels Threatened In Home Enviroment: No Family/Social History - Physician Review Nursing Documentation Reviewed: Yes Family/Social History: Unknown Family HX Smoking Status: Former Smoker Hx Alcohol Use: No Hx Substance Use: No Hx Substance Use Treatment: No Allergies/Home Meds Allergies/Adverse Reactions: Allergies No Known Allergies Allergy (Verified 06/11/18 16:08) Home Medications: Home Meds Medication Instructions Recorded Confirmed Aspirin [Aspirin Chewable] 81 mg PO DAILY 07/09/18 07/31/18 Benztropine [Cogentin] 1 mg PO HS 07/09/18 07/31/18 Docusate [Colace] 100 mg PO BID 07/09/18 07/31/18 Ezetimibe [Zetia] 10 mg PO DAILY 07/09/18 07/31/18 Ferrous Sulfate [Feosol] 325 mg PO DAILY 07/09/18 07/31/18 Iron Polysaccharide [Nifrex 150] 150 mg PO DAILY 07/09/18 07/31/18 metFORMIN [glucOPHAGE] 500 mg PO BID 07/09/18 07/31/18 traZODone [trazODONE HYDROCHLORIDE] 50 mg PO HS 07/09/18 07/31/18 Review of Systems - Physician Review All systems were reviewed & negative as marked: Yes - Review of Systems Constitutional: absent: Fevers Eyes: absent: Vision Changes, Photophobia ENT: Normal. absent: Hearing Changes, Voice Changes, Epistaxis Respiratory: Normal. absent: SOB, Cough Cardiovascular: Normal. absent: Chest Pain, Palpitations Gastrointestinal: Normal. absent: Abdominal Pain, Constipation, Diarrhea, Nausea, Vomiting, Hematochezia, Hematemesis Genitourinary Female: Normal. absent: Dysuria, Frequency, Hematuria, Urine Output Changes, Vaginal Bleeding, Vaginal Discharge Musculoskeletal: Normal. absent: Arthralgias, Myalgias Skin: Normal. absent: Rash, Pruritis, Skin Lesions Neurological: Normal. absent: Headache, Dizziness Endocrine: Normal Hemo/Lymphatic: Normal Psychiatric: Suicidal Ideation, Other (hallucinations) Physical Exam Vital Signs Reviewed: Yes Temperature: Afebrile Blood Pressure: Normal Pulse: Tachycardic Respiratory Rate: Normal Appearance: Positive for: Well-Appearing, Non-Toxic, Comfortable Pain Distress: None Mental Status: Positive for: Alert and Oriented X 3 - Systems Exam Head: Present: Atraumatic, Normocephalic Pupils: Present: PERRL Extroacular Muscles: Present: EOMI Conjunctiva: Present: Normal Mouth: Present: Moist Mucous Membranes Pharnyx: Present: Normal. No: ERYTHEMA, EXUDATE, TONSILS ENLARGED, Peritonsilar Swelling, Uvular Deviation, Muffled/Hoarse Voice Neck: Present: Normal Range of Motion. No: Meningeal Signs, MIDLINE TENDERNESS, JVD, Lymphadenopathy Respiratory/Chest: Present: Clear to Auscultation, Good Air Exchange. No: Respiratory Distress, Accessory Muscle Use Cardiovascular: Present: Regular Rate and Rhythm, Normal S1, S2. No: Murmurs Abdomen: No: Tenderness, Distention, Peritoneal Signs Back: Present: Normal Inspection. No: CVA Tenderness, Midline Tenderness Upper Extremity: Present: NORMAL PULSES, Other (LUE dorsal hand 1 cm superficial laceration, well healed, no crepitus or erythema). No: Cyanosis, Edema, Tenderness, Swelling Lower Extremity: Present: Normal Inspection, NORMAL PULSES. No: Edema Neurological: Present: GCS=15, CN II-XII Intact, Speech Normal Skin: Present: Warm, Dry, Normal Color. No: Rashes Psychiatric: Present: Alert, Oriented x 3, Normal Insight, Normal Concentration, Suicidal Ideation, Hallucinations. No: Homicidal Ideation Medical Decision Making ED Course and Treatment: 08/19/18 17:45 Impression: 42 F with pmh of schizophrenia, anxiety, depression, hypertension, hyperlipidemia, diabetes, seizures, and anemia presents with chief complaint of suicidal ideation since yesterday. Mild non-infected superficial laceration to L hand. Good n/v status with normal strength. No GI or complaints. No fever, chills or night sweats. No meningeal signs. Likely SI / hallucinations 2/2 non- compliance w/ medications. Plan: -- Labs -- [facility] Crisis Evaluation -- UA Prior Visits: Notes and results from previous visits were reviewed. Progress Notes: EKG shows Sinus Tachycardia at 101 BPM, No STEMI. 08/19/18 19:31 labs largely unremarkable mild leukocytosis, non-specific. UA w/ 5-10 whites, but with noted epithleal cells No CVAT or suprapubic pain asymptompatic uti, will rx given wbc Patient is medically clear for admission / transfer to psych. 08/19/18 20:[address] Tomas Pending PES dispo pt in NAD - Scribe Statement The provider has reviewed the documentation as recorded by the Sridevi Dotson Provider Scribe Attestation: All medical record entries made by the Scribe were at my direction and personally dictated by me. I have reviewed the chart and agree that the record accurately reflects my personal performance of the history, physical exam, medical decision making, and the department course for this patient. I have also personally directed, reviewed, and agree with the discharge instructions and disposition. Disposition/Present on Arrival - Present on Arrival Any Indicators Present on Arrival: No History of DVT/PE: No History of Uncontrolled Diabetes: No Urinary Catheter: No History of Decub. Ulcer: No History Surgical Site Infection Following: None - Disposition Have Diagnosis and Disposition been Completed?: Yes Diagnosis: UTI (urinary tract infection), Suicidal ideation, UTI (lower urinary tract infection) Disposition Time: 19:40 Condition: STABLE Referrals: Lucía Mathis MD [Primary Care Provider] - Follow up with primary Forms: [employer] (Bur[place]ian)
[2018-08-19 18:23] LABS: BASO # 0.05 K/mm3 (0.0-2.0); BASO % 0.4 % (0.0-3.0); EOS # 0.2 (0.0-0.7); EOS % 1.4 % (1.5-5.0); LYMPH # 6.1 (1.2-3.4); MEAN CORPUSCULAR HEMOGLOBIN 27.5 pg (25.0-35.0); MEAN CORPUSCULAR HGB CONC 33.1 g/dl (31.0-37.0); MEAN PLATELET VOLUME 8.9 fl (7.0-11.0); MONO # 0.9 (0.1-0.6); MONO % 6.5 % (1.0-6.0); RBC 4.36 10^6/uL (3.5-6.1); RED CELL DISTRIBUTION WIDTH 17.2 % (11.5-14.5); WHITE BLOOD COUNT 13.9 10^3/uL (4.5-11.0)
[2018-08-19 19:04] LABS: ACETAMINOPHEN < 10.0 ug/ml (10.0-20.0); SALICYLATE < 1 mg/dL (2.0-20.0)
[2018-08-19 19:05] LABS: ALB/GLOB RATIO 1.2 (1.1-1.8); ALBUMIN 4.5 g/dL (3.0-4.8); ALT/SGPT 12 U/L (7-56); AST/SGOT 35 U/L (14-36); BLOOD UREA NITROGEN 10 mg/dL (7-21); CALCIUM 9.6 mg/dL (8.4-10.5); GFR NON-AFRICAN AMERICAN > 60
[2018-08-19 19:23] LABS: URINE BILIRUBIN NEGATIVE (NEGATIVE); URINE BLOOD NEGATIVE (NEGATIVE); URINE GLUCOSE (UA) 250 mg/dL (NEGATIVE); URINE LEUKOCYTE ESTERASE NEGATIVE Leu/uL (NEGATIVE); URINE PROTEIN 30 mg/dL (<30 mg/dL); URINE UROBILINOGEN 0.2 E.U./dL (<1 E.U./dL)
[2018-08-19 19:24] LABS: URINE COLOR YELLOW (YELLOW)
[2018-08-19 19:29] LABS: URINE APPEARANCE SLIGHT-CLOUDY (CLEAR)
[2018-08-19 19:30] LABS: URINE AMORPHOUS SEDIMENT TRACE /hpf
[2018-08-19 19:50] LABS: BARBITURATES, UR NEGATIVE (NEGATIVE); BENZODIAZEPINES, UR NEGATIVE (NEGATIVE); OPIATES, UR NEGATIVE (NEGATIVE); PHENCYCLIDINE, UR NEGATIVE (NEGATIVE)
--- NOTE | 2018-08-19 19:55 | ED PDOC ---
Physical Exam Vital Signs Temp Pulse Resp BP Pulse Ox 08/19/18 17:30 98.7 F 100 H 18 121/87 100 Medical Decision Making ED Course and Treatment: 08/19/18 19:54 Case endorsed to me by Dr. Parra. Case pending PES evaluation. 08/19/18 23:55 Pt seen by PES. Access was called by PES and is awaiting placement. 08/20/18 07:[address] Polanco, pending bed placement. - Lab Interpretations Lab Results: Total Bilirubin 0.2 mg/dL (0.2-1.3) 08/19/18 17:50 AST 35 U/L (14-36) 08/19/18 17:50 ALT 12 U/L (7-56) 08/19/18 17:50 Alkaline Phosphatase 90 U/L (38-126) 08/19/18 17:50 Total Protein 8.2 g/dL (5.8-8.3) 08/19/18 17:50 Albumin 4.5 g/dL (3.0-4.8) 08/19/18 17:50 Globulin 3.7 gm/dL 08/19/18 17:50 Albumin/Globulin Ratio 1.2 (1.1-1.8) 08/19/18 17:50 Urine Color Yellow (YELLOW) 08/19/18 19:00 Urine Appearance Slight-cloudy (CLEAR) 08/19/18 19:00 Urine pH 6.0 (4.7-8.0) 08/19/18 19:00 Ur Specific [place] >= 1.030 (1.005-1.035) 08/19/18 19:00 Urine Protein 30 mg/dL (<30 mg/dL) H 08/19/18 19:00 Urine Glucose (UA) 250 mg/dL (NEGATIVE) H 08/19/18 19:00 Urine Ketones 15 mg/dL (NEGATIVE) H 08/19/18 19:00 Urine Blood Negative (NEGATIVE) 08/19/18 19:00 Urine Nitrate Negative (NEGATIVE) 08/19/18 19:00 Urine Bilirubin Negative (NEGATIVE) 08/19/18 19:00 Urine Urobilinogen 0.2 E.U./dL (<1 E.U./dL) 08/19/18 19:00 Ur Leukocyte Esterase Negative Uriel/uL (NEGATIVE) 08/19/18 19:00 Urine RBC TEST NOT PERFORMED 08/19/18 19:00 Urine WBC 5 - 10 /hpf (0-6) H 08/19/18 19:00 Ur Epithelial Cells 6 - 8 /hpf (0-5) H 08/19/18 19:00 Amorphous Sediment Trace /hpf (NONE) 08/19/18 19:00 Urine HCG, Qual Negative (NEGATIVE) 08/19/18 19:00 Urine HCG, Qual Negative (NEGATIVE) 08/19/18 19:00 - RAD Interpretation Radiology Orders: 08/19/18 18:09 CHEST PORTABLE [RAD] Stat - Medication Orders Current Medication Orders: Discontinued Medications Nitrofurantoin Macrocrystals (Macrobid) 100 mg PO ONCE ONE; Protocol Stop: 08/19/18 19:33 - Scribe Statement The provider has reviewed the documentation as recorded by the Sridevi Dotson All medical record entries made by the Scribe were at my direction and personally dictated by me. I have reviewed the chart and agree that the record accurately reflects my personal performance of the history, physical exam, medical decision making, and the department course for this patient. I have also personally directed, reviewed, and agree with the discharge instructions and disposition. Disposition/Present on Arrival - Present on Arrival Any Indicators Present on Arrival: No History of DVT/PE: No History of Uncontrolled Diabetes: No Urinary Catheter: No History of Decub. Ulcer: No History Surgical Site Infection Following: None - Disposition Have Diagnosis and Disposition been Completed?: No Diagnosis: UTI (urinary tract infection), Suicidal ideation, UTI (lower urinary tract infection), Depression Disposition Time: 07:00 Patient Problems: Current Active Problems Problem Status Onset Depression Acute Suicidal ideation Acute UTI (lower urinary tract infection) Acute UTI (urinary tract infection) Acute Condition: STABLE Referrals: Lucía Mathis MD [Primary Care Provider] - Follow up with primary Forms: [employer] (Urdu)
--- NOTE | 2018-08-20 07:10 | ED PDOC ---
Physical Exam Vital Signs Temp Pulse Resp BP Pulse Ox 08/20/18 07:00 87 20 103/70 97 08/19/18 23:17 82 20 108/71 95 08/19/18 17:30 98.7 F 100 H 18 121/87 100 Medical Decision Making ED Course and Treatment: 08/20/18 07:08 Case endorsed to me by Dr. Hopson for pending bed placement. Patient has been medically cleared by previous team and has been evaluated by PES. Patient is currently resting in bed in no acute distress. Patient presents no new medical complaints. 08/20/18 14:[address] frederick. - Lab Interpretations Lab Results: Total Bilirubin 0.2 mg/dL (0.2-1.3) 08/19/18 17:50 AST 35 U/L (14-36) 08/19/18 17:50 ALT 12 U/L (7-56) 08/19/18 17:50 Alkaline Phosphatase 90 U/L (38-126) 08/19/18 17:50 Total Protein 8.2 g/dL (5.8-8.3) 08/19/18 17:50 Albumin 4.5 g/dL (3.0-4.8) 08/19/18 17:50 Globulin 3.7 gm/dL 08/19/18 17:50 Albumin/Globulin Ratio 1.2 (1.1-1.8) 08/19/18 17:50 Urine Color Yellow (YELLOW) 08/19/18 19:00 Urine Appearance Slight-cloudy (CLEAR) 08/19/18 19:00 Urine pH 6.0 (4.7-8.0) 08/19/18 19:00 Ur Specific Chamber[place] >= 1.030 (1.005-1.035) 08/19/18 19:00 Urine Protein 30 mg/dL (<30 mg/dL) H 08/19/18 19:00 Urine Glucose (UA) 250 mg/dL (NEGATIVE) H 08/19/18 19:00 Urine Ketones 15 mg/dL (NEGATIVE) H 08/19/18 19:00 Urine Blood Negative (NEGATIVE) 08/19/18 19:00 Urine Nitrate Negative (NEGATIVE) 08/19/18 19:00 Urine Bilirubin Negative (NEGATIVE) 08/19/18 19:00 Urine Urobilinogen 0.2 E.U./dL (<1 E.U./dL) 08/19/18 19:00 Ur Leukocyte Esterase Negative Uriel/uL (NEGATIVE) 08/19/18 19:00 Urine RBC TEST NOT PERFORMED 08/19/18 19:00 Urine WBC 5 - 10 /hpf (0-6) H 08/19/18 19:00 Ur Epithelial Cells 6 - 8 /hpf (0-5) H 08/19/18 19:00 Amorphous Sediment Trace /hpf (NONE) 08/19/18 19:00 Urine HCG, Qual Negative (NEGATIVE) 08/19/18 19:00 Urine HCG, Qual Negative (NEGATIVE) 08/19/18 19:00 - RAD Interpretation Radiology Orders: 08/19/18 18:09 CHEST PORTABLE [RAD] Stat - Medication Orders Current Medication Orders: Discontinued Medications Nitrofurantoin Macrocrystals (Macrobid) 100 mg PO ONCE ONE; Protocol Stop: 08/19/18 19:33 - Scribe Statement The provider has reviewed the documentation as recorded by the Scribe Cem Dutta. All medical record entries made by the Scribe were at my direction and personally dictated by me. I have reviewed the chart and agree that the record accurately reflects my personal performance of the history, physical exam, medical decision making, and the department course for this patient. I have also personally directed, reviewed, and agree with the discharge instructions and disposition. Disposition/Present on Arrival - Present on Arrival Any Indicators Present on Arrival: No History of DVT/PE: No History of Uncontrolled Diabetes: No Urinary Catheter: No History of Decub. Ulcer: No History Surgical Site Infection Following: None - Disposition Have Diagnosis and Disposition been Completed?: Yes Diagnosis: UTI (urinary tract infection), Suicidal ideation, UTI (lower urinary tract infection), Depression Disposition: HOSPITALIZED Disposition Time: 11:00 Patient Problems: Current Active Problems Problem Status Onset Depression Acute Suicidal ideation Acute UTI (lower urinary tract infection) Acute UTI (urinary tract infection) Acute Condition: STABLE
--- NOTE | 2018-08-20 09:42 | RAD ---
Date of service: 08/19/2018 HISTORY: si COMPARISON: 06/14/2018 TECHNIQUE: 1 view obtained. FINDINGS: LUNGS: No active pulmonary disease. PLEURA: No significant pleural effusion identified, no pneumothorax apparent. CARDIOVASCULAR: No aortic atherosclerotic calcification present. Normal cardiac size. No pulmonary vascular congestion. OSSEOUS STRUCTURES: No significant abnormalities. VISUALIZED UPPER ABDOMEN: Normal. OTHER FINDINGS: None. IMPRESSION: No active disease.
[2018-08-20 11:33] VITALS: O2SAT 99
--- NOTE | 2018-08-20 15:18 | CARD ---
APPROVED REPORT Date of service: 08/19/2018 EKG Measurement Heart [id number] <Conclusion> Sinus tachycardia Minimal voltage criteria for LVH, may be normal variant Nonspecific T wave abnormality Abnormal ECG
--- NOTE | 2018-08-20 17:29 | PCM.PSYCH ---
Initial Psychiatric Evaluation - Initial Psychiatric Evaluation Type of Admission: Voluntary Legal Status: Capacity Chief Complaint (in patient's own words): "I was feeling very depressed, I want my life, I was thinking to cut my wrist, I was hearing voices, bad voices" Patient's Reaction to Hospitalization: Patient was admitted for evaluation and stabilization of psychosis, possible suicidal ideation with a plan to cut her wrists. 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 This bond underwriter is very familiar with this patient from the multiple admissions to the psychiatric inpatient unit in the past, patient presented with acceptable pe rsonal hygiene, patient had good ADLs. pt reported that she was feeling very depressed for the past 2 days, patient reported that she had suicidal ideation with a plan to cut her wrists, patient reported that she is compliant with her medications, patient reported that she was stressed about her current medications were recently adjusted. Patient has chronic mental illness, patient using professional statements such as "acute deviation from my baseline" learned from multiple admissions in the p ast. Patient is very superficial, patient reported that she was hearing voices "just scary voices that is all" Patient reported that the present moment she feels "comfortable, I feel safe." [facility] norvasc 10mg daily ASA 81 daily lipitor 20mg daily cogentin 1mg bid clozaril 200mg hs and 200dbid januvia 50mg po daily metformin 1000mg bid januvia 50mg daily trazodone 50mg hs Past psychiatric history: Patient has multiple hospitalizations including [facility] Medical history: Diabetes, hyperlipidemia, see medical consultation for more detailed information Family history: Not known family history of mental illness Social history: Patient lives independently, does not work, has supportive mother, followed up by PACT team Patient denied history of using drugs, denied smoking, urine drug screen is negative for any substances 08/19/18 17:50 08/19/18 17:50 Lab Results 08/19/18 19:00: Urine Opiates Screen Negative, Urine Methadone Screen Negative, Ur Barbiturates Screen Negative, Ur Phencyclidine Scrn Negative, Ur Amphetamines Screen Negative, U Benzodiazepines Scrn Negative, U Oth Cocaine Metabols Negative, U Cannabinoids Screen Negative 08/19/18 19:00: Urine HCG, Qual Negative 08/19/18 19:00: Urine Color Yellow, Urine Appearance Slight-cloudy, Urine pH 6.0, Ur Specific Dex[place] >= 1.030, Urine Protein 30 H, Urine Glucose (UA) 250 H, Urine Ketones 15 H, Urine Blood Negative, Urine Nitrate Negative, Urine Bilir ubin Negative, Urine Urobilinogen 0.2, Ur Leukocyte Esterase Negative, Urine RBC TEST NOT PERFORMED, Urine WBC 5 - 10 H, Ur Epithelial Cells 6 - 8 H, Amorphous Sediment Trace 08/19/18 17:50: Alcohol, Quantitative < 10 08/19/18 17:50: Salicylates < 1 L, Acetaminophen < 10.0 L 08/19/18 17:50: Sodium 140, Potassium 4.0, Chloride 101, Carbon Dioxide 24, Anion Gap 18, BUN 10, Creatinine 0.4 L, Est GFR ( Amer) > 60, Est GFR (Non-Af Amer) > 60, Random Glucose 247 H, Calcium 9.6, Magnesium 1.3 L, Total Bilirubin 0.2, AST 35, ALT 12, Alkaline Phosphatase 90, Total Protein 8.2, Albumin 4.5, Globulin 3.7, Albumin/Globulin Ratio 1.2 08/19/18 17:50: WBC 13.9 H D, RBC 4.36, Hgb 12.0, Hct 36.2, MCV 83.0, MCH 27.5, MCHC 33.1, RDW 17.2 H, Plt Count 451 H, MPV 8.9, Neut % (Auto) 47.7 L, Lymph % (Auto) 44.0 H, [place] % (Auto) 6.5 H, Eos % (Auto) 1.4 L, Baso % (Auto) 0.4, Lymph # (Auto) 6.1 H, [place] # (Auto) 0.9 H, Eos # (Auto) 0.2, Baso # (Auto) 0.05, Absolute Neuts (auto) 6.65 H Vital Signs Temp Pulse Pulse Resp BP Pulse Ox 08/20/18 16:00 114 H 110/79 08/20/18 12:50 99 H 17 08/20/18 11:32 98.7 F 95 H 18 129/86 99 08/20/18 07:00 87 20 103/70 97 08/19/18 23:17 82 20 108/71 95 08/19/18 17:30 98.7 F 100 H 18 121/87 100 The patient failed the outpatient lower level of care: Yes Current Medications: Active Medications Generic Name Dose Route Start Last Admin Trade Name Freq PRN Reason Stop Dose Admin Amlodipine Besylate 10 mg 08/21/18 08:00 Norvasc PO DAILY [facility] Aspirin 81 mg 08/21/18 08:00 Ecotrin PO DAILY [facility] Atorvastatin Calcium 20 mg 08/20/18 17:00 Lipitor PO DIN [facility] Benztropine Mesylate 1 mg 08/20/18 16:00 Cogentin PO BID [facility] Clozapine 200 mg 08/20/18 22:00 Clozaril PO HS [facility] Protocol Clozapine 200 mg 08/21/18 08:00 Clozaril PO BID [facility] Protocol Docusate Sodium 100 mg 08/20/18 16:00 Colace PO BID [facility] Ferrous Sulfate 324 mg 08/21/18 08:00 Feosol PO DAILY [facility] Insulin Human Regular 0 units 08/20/18 22:00 Humulin R Med SC ACHS [facility] Protocol Metformin HCl 1,000 mg 08/20/18 16:36 Glucophage PO BID [facility] Metformin HCl 1,000 mg 08/20/18 17:12 Glucophage PO 08/20/18 17:13 STAT STA Paroxetine HCl 20 mg 08/20/18 22:00 Paxil PO HS [facility] Sitagliptin Phosphate 50 mg 08/21/18 08:00 Januvia PO DAILY [facility] Trazodone HCl 50 mg 08/20/18 22:00 Desyrel PO HS [facility] Present on Admission - Present on Admission Any Indicators Present on Admission: No Review of Systems - Review of Systems Systems not reviewed;Unavailable: Acuity of Condition - Constitutional Constitutional: As Per HPI - EENT Eyes: As Per HPI Ears: As Per HPI Nose/Mouth/Throat: As Per HPI - Breasts Breasts: As Per HPI - Cardiovascular Cardiovascular: As Per HPI - Respiratory Respiratory: As Per HPI - Gastrointestinal Gastrointestinal: As Per HPI - Genitourinary Genitourinary: As Per HPI - Reproductive: Female Reproductive:Female: As Per HPI - Menstruation Menstruation: As Per HPI - Musculoskeletal Musculoskeletal: As Per HPI - Integumentary Integumentary: As Per HPI - Neurological Neurological: As Per HPI - Psychiatric Psychiatric: As Per HPI - Endocrine Endocrine: As Per HPI - Hematologic/Lymphatic Hematologic: As Per HPI Past Patient History - Past Psychiatric History Previous Treatment History: Inpatient Prior Professional Help: See HPI Prior Psychiatric Treatment: See HPI At what hospital: See HPI Duration: See HPI Nature of Treatment: See HPI Explanation of prior treatment: See HPI - PSYCHIATRIC Hx Anxiety: Yes Hx Bipolar Disorder: Yes Hx Depression: Yes Hx Schizophrenia: Yes Hx Substance Use: No - Infectious Disease Hx of Infectious Diseases: None - Tetanus Immunizations Tetanus Immunization: Unknown - Past Medical History & Family History Past Medical History?: No - CARDIAC Hx Cardiac Disorders: Yes Hx Hypertension: Yes - PULMONARY Hx Respiratory Disorders: No Hx Tuberculosis: No - NEUROLOGICAL Hx Neurological Disorder: No HX Cerebrovascular Accident: No Hx Seizures: No - HEENT Hx HEENT Problems: No - RENAL Hx Chronic Kidney Disease: No - ENDOCRINE/METABOLIC Hx Endocrine Disorders: Yes Hx Diabetes Mellitus Type 2: Yes - HEMATOLOGICAL/ONCOLOGICAL Hx Anemia: Yes Hx Cancer: No Hx Human Immunodeficiency Virus (HIV): No - INTEGUMENTARY Hx Dermatological Problems: No - MUSCULOSKELETAL/RHEUMATOLOGICAL Hx Musculoskeletal Disorders: No - GASTROINTESTINAL Hx Gastrointestinal Disorders: No - GENITOURINARY/GYNECOLOGICAL Hx Genitourinary Disorders: No Hx Sexually Transmitted Disorders: No - SURGICAL HISTORY Hx Surgeries: No - ANESTHESIA Hx Anesthesia: No Hx Anesthesia Reactions: No Hx Malignant Hyperthermia: No - Medical/Surgical History Reviewed & confirmed: by ri Meds Allergies/Adverse Reactions: Allergies Allergy/AdvReac Type Severity Reaction Status Date / Time No Known Allergies Allergy Verified 08/20/18 12:21 Mental Status Examination - Personal Presentation Personal Presentation: Looks older than stated age - Affect Affect: Constricted, Flat - Motor Activity Motor Activity: Calm - Reliability in Providing Information Reliability in Providing Information: Fair - Speech Speech: Disorganized - Mood Mood: Depressed, Anxious - Formal Thought Process Formal Thought Process: Hallucinations, Delusions, Paranoia - Hallucinations/Delusions Delusions: Persecution - Obsessions/Compulsions Obsessions: None Compulsions: None - Cognitive Functions Orientation: Person, Place Sensorium: Alert Attention/Concentration: Easily distracted Abstract Thinking: [place] Estimate of Intelligence: Below average Judgement: Intact, as evidence by: Insight regarding need for hospitalization - Risk Risk: Suicidal, Self-mutilation, Diminished functioning - Strength & Assets Inventory Strength & Assets Inventory: Family support, Cooperative, Other (Good side, patient is coming to the hospital if suicidal or psychotic\\) - Limitations Limitations: Other (Chronic/severe mental illness) Psychiatric Physical Exam - Physical Exam Reviewed and confirmed: Emergency Department Physical Exam Results - Vital Signs Recent Vital Signs: Last Vital Signs Temp 98.7 F 08/20/18 11:32 Pulse 114 H 08/20/18 16:00 Resp 17 08/20/18 12:50 BP 110/79 08/20/18 16:00 Pulse Ox 99 08/20/18 11:32 - Labs Result Diagrams: 08/19/18 17:50 08/19/18 17:50 Labs: Laboratory Results - last 24 hr 08/19/18 08/19/18 08/19/18 17:50 17:50 17:50 WBC 13.9 H D RBC 4.36 Hgb 12.0 Hct 36.2 MCV 83.0 MCH 27.5 MCHC 33.1 RDW 17.2 H Plt Count 451 H MPV 8.9 Neut % (Auto) 47.7 L Lymph % (Auto) 44.0 H [place] % (Auto) 6.5 H Eos % (Auto) 1.4 L Baso % (Auto) 0.4 Lymph # (Auto) 6.1 H [place] # (Auto) 0.9 H Eos # (Auto) 0.2 Baso # (Auto) 0.05 Absolute Neuts (auto) 6.65 H Sodium 140 Potassium 4.0 Chloride 101 Carbon Dioxide 24 Anion Gap 18 BUN 10 Creatinine 0.4 L Est GFR ( Amer) > 60 Est GFR (Non-Af Amer) > 60 Random Glucose 247 H Calcium 9.6 Magnesium 1.3 L Total Bilirubin 0.2 AST 35 ALT 12 Alkaline Phosphatase 90 Total Protein 8.2 Albumin 4.5 Globulin 3.7 Albumin/Globulin Ratio 1.2 Urine Color Urine Appearance Urine pH Ur Specific Dexter Urine Protein Urine Glucose (UA) Urine Ketones Urine Blood Urine Nitrate Urine Bilirubin Urine Urobilinogen Ur Leukocyte Esterase Urine RBC Urine WBC Ur Epithelial Cells Amorphous Sediment Urine HCG, Qual Salicylates < 1 L Urine Opiates Screen Urine Methadone Screen Acetaminophen < 10.0 L Ur Barbiturates Screen Ur Phencyclidine Scrn Ur Amphetamines Screen U Benzodiazepines Scrn U Oth Cocaine Metabols U Cannabinoids Screen Alcohol, Quantitative 08/19/18 08/19/18 08/19/18 17:50 19:00 19:00 WBC RBC Hgb Hct MCV MCH MCHC RDW Plt Count MPV Neut % (Auto) Lymph % (Auto) [place] % (Auto) Eos % (Auto) Baso % (Auto) Lymph # (Auto) [place] # (Auto) Eos # (Auto) Baso # (Auto) Absolute Neuts (auto) Sodium Potassium Chloride Carbon Dioxide Anion Gap BUN Creatinine Est GFR ( Amer) Est GFR (Non-Af Amer) Random Glucose Calcium Magnesium Total Bilirubin AST ALT Alkaline Phosphatase Total Protein Albumin Globulin Albumin/Globulin Ratio Urine Color Yellow Urine Appearance Slight-cloudy Urine pH 6.0 Ur Specific Dex[place] >= 1.030 Urine Protein 30 H Urine Glucose (UA) 250 H Urine Ketones 15 H Urine Blood Negative Urine Nitrate Negative Urine Bilirubin Negative Urine Urobilinogen 0.2 Ur Leukocyte Esterase Negative Urine RBC TEST NOT PERFORMED Urine WBC 5 - 10 H Ur Epithelial Cells 6 - 8 H Amorphous Sediment Trace Urine HCG, Qual Negative Salicylates Urine Opiates Screen Urine Methadone Screen Acetaminophen Ur Barbiturates Screen Ur Phencyclidine Scrn Ur Amphetamines Screen U Benzodiazepines Scrn U Oth Cocaine Metabols U Cannabinoids Screen Alcohol, Quantitative < 10 08/19/18 19:00 WBC RBC Hgb Hct MCV MCH MCHC RDW Plt Count MPV Neut % (Auto) Lymph % (Auto) [place] % (Auto) Eos % (Auto) Baso % (Auto) Lymph # (Auto) [place] # (Auto) Eos # (Auto) Baso # (Auto) Absolute Neuts (auto) Sodium Potassium Chloride Carbon Dioxide Anion Gap BUN Creatinine Est GFR ( Amer) Est GFR (Non-Af Amer) Random Glucose Calcium Magnesium Total Bilirubin AST ALT Alkaline Phosphatase Total Protein Albumin Globulin Albumin/Globulin Ratio Urine Color Urine Appearance Urine pH Ur Specific [place] Urine Protein Urine Glucose (UA) Urine Ketones Urine Blood Urine Nitrate Urine Bilirubin Urine Urobilinogen Ur Leukocyte Esterase Urine RBC Urine WBC Ur Epithelial Cells Amorphous Sediment Urine HCG, Qual Salicylates Urine Opiates Screen Negative Urine Methadone Screen Negative Acetaminophen Ur Barbiturates Screen Negative Ur Phencyclidine Scrn Negative Ur Amphetamines Screen Negative U Benzodiazepines Scrn Negative U Oth Cocaine Metabols Negative U Cannabinoids Screen Negative Alcohol, Quantitative - EKG Data EKG Interpreted by: ER Physician EKG shows normal: Sinus rhythm Rate: Tachycardia DSM Plan - DSM 5 DSM 5 Diagnosis: Schizoaffective disorder, bipolar type, treatment resistant - Recommended/Plan of Treatment Treatment Recommendations and Plan of Treatment: Milieu/structure/supportive therapy SW consultation for discharge plan and social issues Med management, medications were confirmed, resumed Family involvement Follow up on labs Will monitor closely Pt was educated about risk/benefits and alternatives of medications, coping strategies (safety plan, suicide prevention), relapse prevention, importance of follow up with psychiatrist and therapist, stay away from drugs/alcohol/smoking Projected ELOS: 7 days Prognosis: Guarded Discharge Plan and Discharge Criteria: Patient will be less psychotic, not suicidal, will be able to take care of herself. - Tobacco Cessation Tobacco Use Status for the last 30 days: Non User Tobacco Use Treatment Practical Counseling Provided: No Tobacco Use Treatment FDA-Approved Cessation Medication Provided: No - Alcohol or Substance Abuse Does the patient have an Alcohol or Substance Abuse Disorder: No Initial Psych Certification - Initial Certification I certify that the inpatient psychiatric facility admission was medically necessary for either: Treatment which could reasonbly be expected to improve pt's condition I estimate of hospitalization is necessary for proper treatment of the patient: 7 Unit of Time: Days My plans for post-hospital care for this patient are: PACT team
--- NOTE | 2018-08-20 19:53 | PCM.BM ---
<Rikki Quigley - Last Filed: 08/20/18 19:49> Treatment Plan Problems - Problems identified on initial assessmt Alterded Thought process Date Initiated: 08/20/18 Time Initiated: 14:00 Assessment reference: NA Status: Active Priority: 1 Comment: auditry hallucination command type Ineffective Copuing Skills Date Initiated: 08/20/18 Time Initiated: 14:00 Assessment reference: NA Status: Active Priority: 2 Comment: Inabilty to cope with living situation Medication nonadherence Date Initiated: 08/20/18 Time Initiated: 14:00 Assessment reference: NA Status: Active Priority: 3 Treatment assets and liabiliti Patient Assests: adapts well, cooperative, educated, insightful, motivated, self-reliant, ADL independent, negotiates basic needs, cognitively intact, good interpersonal skills Patient Liabilities: live alone - Milieu Protocol Maintain good personal hygiene: every other day Encourage regular showers, every other day Remind patient to perform daily oral care, every other day Assist patient to perform ADL's Conduct patient checks and document Observation sheet: Q15 minutes Maintain personal safety: every shift Educate patient to report safety concerns to staff, every shift Monitor environment for contraband/sharps Medication safety: Monitor for expected outcome, potential side effects: every shift, Assess barriers to learning: every shift, Assess readiness for medication education: every shift Milieu Narrative: Milieu/structure/supportive therapy SW consultation for discharge plan and social issues Med management, medications were confirmed, resumed Family involvement Follow up on labs Will monitor closely Pt was educated about risk/benefits and alternatives of medications, coping strategies (safety plan, suicide prevention), relapse prevention, importance of follow up with psychiatrist and therapist, stay away from drugs/alcohol/smoking Family Contact Family involvement: Famliy/SO not involved - Outside Agency [facility] involvment: Information-sharing Agency contact [facility] Discharge/Continuing Care - Education Needs Education Needs: Patient Medication, Patient Diagnosis/Disease Process, Patient Coping Skills, Patient Anger Management skills, Patient Placement options, Patient Community resources, Patient Activities of Daily Living, Patient Nutrition, Patient Uses of Medical Equipment, Patient Health Practices/Safety, Patient Personal Hygiene/Grooming, Patient Aftercare Safety Plan - Discharge Discharge Criteria: Free of Suicidal thoughts, Normal sleep pattern Discharge to:: Home - Treatment Team Participation Patient/Family/SO Statement: Milieu/structure/supportive therapy SW consultation for discharge plan and social issues Med management, medications were confirmed, resumed Family involvement Follow up on labs Will monitor closely Pt was educated about risk/benefits and alternatives of medications, coping strategies (safety plan, suicide prevention), relapse prevention, importance of follow up with psychiatrist and therapist, stay away from drugs/alcohol/smoking <Zonia José A - Last Filed: 08/21/18 16:06> - Diagnosis (1) Schizoaffective disorder Status: Chronic Interventions: 08/21/18 16:06 Psychoeducation/psychotherapy Psychopharmacology/adjustment of medications as needed/ monitoring possible side effects Evaluate pt on daily basis Compliance with medications and follow up appointments Long acting medication if pt is noncompliant with pill form Suicide and homicide risk assessment and prevention, coping strategies, safety plan Relapse prevention Reduction of symptoms Improve functional status Possible assertive community treatment Cognitive behavioral therapy Family involvement Possible social skill training as outpatient <Raisa Miller Y - Last Filed: 08/22/18 16:04> Family Contact Family involvement: Famliy/SO not involved
[2018-08-20] MEDS: Insulin Reg-MEDIUM-Coverage SC SCH (23:35)
--- NOTE | 2018-08-21 00:09 | CON ---
DATE: 08/20/2018 HISTORY OF PRESENT ILLNESS: The patient is a 42-year-old single female with a long psychiatric history of schizoaffective disorder, no drug or alcohol issues, numerous admissions usually due to noncompliance~most recently at [facility] from 07/09 to 07/19/2018 and prior to that she was at [facility] from 06/11 to 06/18/2018,followed by Elias LARES who presented to our ER reporting symptoms of depression, suicidal thoughts and auditory hallucinations telling to hurt herself (this is very similar to her prior presentations). I am very familiar with the patient and met with the patient at bedside early this morning to evaluate her for admission as there were no beds available at the time of her presentation to the ER on 08/19. The patient is pleasant, friendly, grateful for our help, indicates that she has been depressed, does not feel safe, would like to be admitted, monitored on the medications, reports that she has been hallucinating off and on, reports that hallucinations are distressful, however, denied any current hallucinations during my visit. The patient is pleasant overall. She did indicate that she cut herself when she arrived on the unit due to suicidal thoughts. Current insight and judgment are impaired at this time and the patient would benefit from hospitalization due to her lengthy psychiatric history, poor impulse control, and severity of symptoms. PSYCHIATRIC HISTORY: The patient reports having more than 20 prior psychiatric hospitalizations since her first admission since the age of 14. Most recently, she was discharged from [facility] where she stayed from 07/09 to 07/19/2018. Discharge medications included Clozaril 200 mg t.i.d. and trazodone 50 mg at bedtime. She presented at that time with complaints of wanting to kill herself. She was thinking about killing herself all day long and admitted that she was noncompliant with medications prior to her presentation. of note, the patient also was hospitalized recently at [facility] from 06/11 to 06/18/2018. At that time, she presented with suicidal thoughts with plan to cut her wrist with a knife and had auditory hallucinations, depression and paranoia with poor sleeping and irritability. She was discharged on Cogentin one b.i.d., Clozaril 100 mg daily and 200 at bedtime, Haldol 5 b.i.d., Zoloft 100 mg daily, and trazodone 50 at bedtime. The patient is followed by [facility] SOCIAL HISTORY: The patient resides by herself in the apartment. She has no children, no drugs, alcohol or tobacco use. Her mother Danuta Vega is her main support ([phone]). Labs and vitals were reviewed. Currently showing leukocytosis of 13.9, Chemistry profile generally within normal limits except for elevated for random glucose. UDS is negative. BAL was less than 10. Vitals appear to be stable throughout course in the ER. IMPRESSION: Schizoaffective disorder. RECOMMENDATIONS: At this time, the patient agrees to voluntary admission however will be visited by PACT to determine if current presentation is deviant from her baseline, which is poor. Jamila Humphries MD [facility]
[2018-08-21] MEDS: Insulin Reg-MEDIUM-Coverage SC SCH ×7 (09:21→22:00)
--- NOTE | 2018-08-21 14:20 | PCM.PYCHPN ---
Psychiatric Progress Note - Psychiatric Progress Note Patient seen today, length of contact: 30 minutes Patient Chief Complaint: "I was feeling very depressed, I want to end up my life, I was thinking to cut my wrist, I was hearing voices, bad voices" Problems Identified/Issues Discussed: Medications, symptoms, treatment plan. Medical Problems: Diabetes, obesity, hypertension. Medical consult was called for urinary tract infection, patient got dose of antibiotic in the emergency room. Diagnostic Results: 08/19/18 17:50 08/19/18 17:50 Lab Results 08/21/18 07:20: POC Glucose (mg/dL) 191 H 08/20/18 21:05: POC Glucose (mg/dL) 224 H 08/20/18 16:10: POC Glucose (mg/dL) 307 H 08/20/18 11:40: POC Glucose (mg/dL) 255 H 08/19/18 19:00: Urine Opiates Screen Negative, Urine Methadone Screen Negative, Ur Barbiturates Screen Negative, Ur Phencyclidine Scrn Negative, Ur Amphetamines Screen Negative, U Benzodiazepines Scrn Negative, U Oth Cocaine Metabols Negative, U Cannabinoids Screen Negative 08/19/18 19:00: Urine HCG, Qual Negative 08/19/18 19:00: Urine Color Yellow, Urine Appearance Slight-cloudy, Urine pH 6.0, Ur Specific [place] >= 1.030, Urine Protein 30 H, Urine Glucose (UA) 250 H, Urine Ketones 15 H, Urine Blood Negative, Urine Nitrate Negative, Urine Bilirubin Negative, Urine Urobilinogen 0.2, Ur Leukocyte Esterase Negative, Urine RBC TEST NOT PERFORMED, Urine WBC 5 - 10 H, Ur Epithelial Cells 6 - 8 H, Amorphous Sediment Trace 08/19/18 17:50: Alcohol, Quantitative < 10 08/19/18 17:50: Salicylates < 1 L, Acetaminophen < 10.0 L 08/19/18 17:50: Sodium 140, Potassium 4.0, Chloride 101, Carbon Dioxide 24, Anion Gap 18, BUN 10, Creatinine 0.4 L, Est GFR ( Amer) > 60, Est GFR (Non-Af Amer) > 60, Random Glucose 247 H, Calcium 9.6, Magnesium 1.3 L, Total Bilirubin 0.2, AST 35, ALT 12, Alkaline Phosphatase 90, Total Protein 8.2, Albumin 4.5, Globulin 3.7, Albumin/Globulin Ratio 1.2 08/19/18 17:50: WBC 13.9 H D, RBC 4.36, Hgb 12.0, Hct 36.2, MCV 83.0, MCH 27.5, MCHC 33.1, RDW 17.2 H, Plt Count 451 H, MPV 8.9, Neut % (Auto) 47.7 L, Lymph % (Auto) 44.0 H, [place] % (Auto) 6.5 H, Eos % (Auto) 1.4 L, Baso % (Auto) 0.4, Lymph # (Auto) 6.1 H, [place] # (Auto) 0.9 H, Eos # (Auto) 0.2, Baso # (Auto) 0.05, Absolute Neuts (auto) 6.65 H Vital Signs Temp Pulse Pulse Resp BP Pulse Ox 08/21/18 09:19 108/74 08/21/18 07:00 98.2 F 101 H 19 108/74 08/20/18 16:00 114 H 110/79 08/20/18 12:50 99 H 17 08/20/18 11:32 98.7 F 95 H 18 129/86 99 08/20/18 07:00 87 20 103/70 97 08/19/18 23:17 82 20 108/71 95 08/19/18 17:30 98.7 F 100 H 18 121/87 100 DSM 5 Symptoms Update: Shortly patient is a 42-year old -[place] female with a 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 pt was seen and examined in her room, pt appears to be sleepy, as per staff pt ate breakfast and went back to bed. pt reported that she came to the hospital because she was not feeing safe, pt reported that she was feeling depressed and had suicidal ideation with the plan to cut her wrists. pt also reported that she was hearing voices, during the interview pt contracted for safety, "I feel safe in here" pt was visited by PACT team already. plan is 72 hr observation and possible d/c by Monday. Impression: Schizoaffective disorder, bipolar type Medication Change: No (Resumed) Medical Record Reviewed: No Consults ordered or reviewed: Medical consult appreciated. Mental Status Examination - Cognitive Function Orientation: Person, Place Memory: Impaired Attention: Poor Concentration: Poor Association: Loose Fund of Knowledge: Poor - Mood Mood: Depressed, Anxious - Affect Affect: Constricted, Flat - Formal Thought Process Formal Thought Process: Hallucinations, Delusions, Paranoia - Suicidal Ideation Suicidal Ideation: No - Homicidal Ideation Homicidal Ideation: No Goal/Treatment Plan - Goal/Treatment Plan Need for Continued Stay: Remain at risks for inpatient hospitalization, Severe depression anxiety, Discharge may exacerbated symptoms, Severe functional impairment Progress Toward Problem(s) and Goals/Treatment Plan: Milieu/structure/supportive therapy SW consultation for discharge plan and social issues Med management, medications were confirmed by PACT team, resumed paxil 20mg daily for depression anxiety clozaril 200mg hs and 200dbid for psychosis trazodone 50mg hs for insomnia and depression cogentin 1mg bid possible EPS norvasc 10mg daily ASA 81 daily lipitor 20mg daily januvia 50mg po daily metformin 1000mg bid januvia 50mg daily Family involvement Follow up on labs Will monitor closely Pt was educated about risk/benefits and alternatives of medications, coping strategies (safety plan, suicide prevention), relapse prevention, importance of follow up with psychiatrist and therapist, stay away from drugs/alcohol/smoking Estimated Date of D/C: 08/24/18
--- NOTE | 2018-08-21 19:56 | CON ---
DATE: 08/21/2018 HISTORY OF PRESENT ILLNESS: She is on the psychiatric floor. I have seen her on numerous times on the psychiatric floor. I have known her for a few years. She attempted suicide by cutting her left hand, trying to hurt herself. She is having auditory hallucinations again, they were telling her to commit suicide. No homicidal ideation. I saw her in bed. She is sedated, sleeping, tells me she is just very, very tired at this time. Does have a history of schizophrenia. She is a 42-year-old female with history of schizophrenia, anxiety, depression, hypertension, high cholesterol, diabetes and anemia. She has suicidal thoughts and hallucinations. She is anxious, depressed with schizophrenia. FAMILY HISTORY: Unknown family history. SOCIAL HISTORY: A former smoker. No alcohol. No drugs. ALLERGIES: NO KNOWN DRUG ALLERGIES. MEDICATIONS: She is on aspirin, Cogentin, Colace, Zetia, Feosol, Niferex, Glucophage and trazodone. REVIEW OF SYSTEMS: No fevers that she knows of. No vision or hearing changes. She is hearing voices telling her to commit suicide. No shortness of breath or cough. No chest pain or palpitations. No nausea, vomiting, constipation or diarrhea. No problems urinating. No back pain. No rashes or lesions. No headaches or dizziness. She has suicidal ideation. PHYSICAL EXAMINATION: VITAL SIGNS: She has a 98.2 temp, 101 pulse, 108/74 blood pressure, 19 respiratory rate and 99% O2 sat on room air. GENERAL: She is very tired, lethargic, sleepy. Alert and oriented x3. HEENT: Head is atraumatic and normocephalic. Extraocular muscles are intact. Throat is moist. NECK: Supple. HEART: Regular rate. LUNGS: Decreased breath sounds, but clear to auscultation. ABDOMEN: Soft and nontender. Positive bowel sounds. No guarding. No rebound. No CVA tenderness. EXTREMITIES: No edema. She can move all four extremities. SKIN: As far as I could tell has got no lesions or rashes. NEUROLOGIC: GCS is 15. Cranial nerves II through XII grossly intact. Normal speech. Alert and oriented x3, but very lethargic at this time. LABORATORY DATA: She had multiple test done. She has a 13.9 white count, we will keep an eye on the white count, 12 hemoglobin, 36.2 hematocrit with a 451 platelets. A sodium 140, potassium 4, BUN 10, creatinine 0.4, GFR is greater than 60, sugars are high at 307 and 224. I will put her back on the medications and insulin coverage. Calcium 9.6, magnesium 1.3 , total bili is 0.2, AST is 35, ALT is 12, alk phos 90, total protein is 8.2. Urine was trace, negative for . Toxicology was clean. ASSESSMENT AND PLAN: She is here for suicidal ideation and attempt, depression, schizophrenia, anxiety, hypertension, diabetes, high cholesterol, seizure history and anemia. She is here for suicidal ideations, hallucinations, depression. We will follow her medially. We will watch her diabetes, her electrolytes and her hypertension. Jason Contreras DO
[2018-08-22 07:48] LABS: HEMOGLOBIN 11.3 g/dL (12.0-16.0); MEAN CELL VOLUME 83.5 fl (80.0-105.0); MEAN CORPUSCULAR HEMOGLOBIN 26.7 pg (25.0-35.0); MEAN PLATELET VOLUME 8.4 fl (7.0-11.0); RBC 4.23 10^6/uL (3.5-6.1); RED CELL DISTRIBUTION WIDTH 17.3 % (11.5-14.5); WHITE BLOOD COUNT 9.6 10^3/uL (4.5-11.0)
[2018-08-22 08:04] LABS: ALB/GLOB RATIO 1.3 (1.1-1.8); ALBUMIN 4.1 g/dL (3.0-4.8); ALT/SGPT 18 U/L (7-56); AST/SGOT 25 U/L (14-36); BLOOD UREA NITROGEN 9 mg/dL (7-21); GFR NON-AFRICAN AMERICAN > 60
[2018-08-22] MEDS: Insulin Reg-MEDIUM-Coverage SC SCH ×8 (08:51→22:41)
--- NOTE | 2018-08-22 13:06 | PCM.PYCHPN ---
Psychiatric Progress Note - Psychiatric Progress Note Patient seen today, length of contact: 30 minutes Patient Chief Complaint: "I am feeling better.." Problems Identified/Issues Discussed: Medications, symptoms, treatment plan. Medical Problems: Diabetes, obesity, hypertension. Medical consult was called for urinary tract infection, patient got dose of antibiotic in the emergency room. Diagnostic Results: 08/19/18 17:50 08/19/18 17:50 Lab Results 08/21/18 07:20: POC Glucose (mg/dL) 191 H 08/20/18 21:05: POC Glucose (mg/dL) 224 H 08/20/18 16:10: POC Glucose (mg/dL) 307 H 08/20/18 11:40: POC Glucose (mg/dL) 255 H 08/19/18 19:00: Urine Opiates Screen Negative, Urine Methadone Screen Negative, Ur Barbiturates Screen Negative, Ur Phencyclidine Scrn Negative, Ur Amphetamines Screen Negative, U Benzodiazepines Scrn Negative, U Oth Cocaine Metabols Negative, U Cannabinoids Screen Negative 08/19/18 19:00: Urine HCG, Qual Negative 08/19/18 19:00: Urine Color Yellow, Urine Appearance Slight-cloudy, Urine pH 6.0, Ur Specific [place] >= 1.030, Urine Protein 30 H, Urine Glucose (UA) 250 H, Urine Ketones 15 H, Urine Blood Negative, Urine Nitrate Negative, Urine Bilirubin Negative, Urine Urobilinogen 0.2, Ur Leukocyte Esterase Negative, Urine RBC TEST NOT PERFORMED, Urine WBC 5 - 10 H, Ur Epithelial Cells 6 - 8 H, Amorphous Sediment Trace 08/19/18 17:50: Alcohol, Quantitative < 10 08/19/18 17:50: Salicylates < 1 L, Acetaminophen < 10.0 L 08/19/18 17:50: Sodium 140, Potassium 4.0, Chloride 101, Carbon Dioxide 24, Anion Gap 18, BUN 10, Creatinine 0.4 L, Est GFR ( Amer) > 60, Est GFR (Non-Af Amer) > 60, Random Glucose 247 H, Calcium 9.6, Magnesium 1.3 L, Total Bilirubin 0.2, AST 35, ALT 12, Alkaline Phosphatase 90, Total Protein 8.2, Albumin 4.5, Globulin 3.7, Albumin/Globulin Ratio 1.2 08/19/18 17:50: WBC 13.9 H D, RBC 4.36, Hgb 12.0, Hct 36.2, MCV 83.0, MCH 27.5, MCHC 33.1, RDW 17.2 H, Plt Count 451 H, MPV 8.9, Neut % (Auto) 47.7 L, Lymph % (Auto) 44.0 H, [place] % (Auto) 6.5 H, Eos % (Auto) 1.4 L, Baso % (Auto) 0.4, Lymph # (Auto) 6.1 H, [place] # (Auto) 0.9 H, Eos # (Auto) 0.2, Baso # (Auto) 0.05, Absolute Neuts (auto) 6.65 H Vital Signs Temp Pulse Pulse Resp BP Pulse Ox 08/21/18 09:19 108/74 08/21/18 07:00 98.2 F 101 H 19 108/74 08/20/18 16:00 114 H 110/79 08/20/18 12:50 99 H 17 08/20/18 11:32 98.7 F 95 H 18 129/86 99 08/20/18 07:00 87 20 103/70 97 08/19/18 23:17 82 20 108/71 95 08/19/18 17:30 98.7 F 100 H 18 121/87 100 DSM 5 Symptoms Update: Shortly patient is a 42-year old -[place] female with a 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 pt was seen and examined at the treatment team meeting, pt appears to be sleepy, withdrawn, disengaged, superficially cooperative, as per staff pt is very low- profile, not participating in unit activities, sleeping all day long pt reported that she came to the hospital because she was not feeing safe, pt reported that she was feeling depressed, but denied suicidal ideation, but based on ED report pt had a suicidal ideation with the plan to cut her wrists. pt also reported that she does not hear voices, but pt reported to this medical writer that she was hearing voices. pt was visited by PACT team already. plan is 72 hr observation and possible d/c by Monday. Impression: Schizoaffective disorder, bipolar type Medication Change: No (Resumed) Medical Record Reviewed: No Mental Status Examination - Cognitive Function Orientation: Person, Place Memory: Impaired Attention: Poor Concentration: Poor Association: Loose Fund of Knowledge: Poor - Mood Mood: Depressed, Anxious - Affect Affect: Constricted, Flat - Formal Thought Process Formal Thought Process: Hallucinations, Delusions, Paranoia - Suicidal Ideation Suicidal Ideation: No - Homicidal Ideation Homicidal Ideation: No Goal/Treatment Plan - Goal/Treatment Plan Need for Continued Stay: Remain at risks for inpatient hospitalization, Severe depression anxiety, Discharge may exacerbated symptoms, Severe functional impairment Progress Toward Problem(s) and Goals/Treatment Plan: Milieu/structure/supportive therapy SW consultation for discharge plan and social issues Med management, medications were confirmed by PACT team, resumed paxil 20mg daily for depression anxiety clozaril 200mg hs and 200dbid for psychosis trazodone 50mg hs for insomnia and depression cogentin 1mg bid possible EPS norvasc 10mg daily ASA 81 daily lipitor 20mg daily januvia 50mg po daily metformin 1000mg bid januvia 50mg daily Family involvement Follow up on labs Will monitor closely Pt was educated about risk/benefits and alternatives of medications, coping strategies (safety plan, suicide prevention), relapse prevention, importance of follow up with psychiatrist and therapist, stay away from drugs/alcohol/smoking Estimated Date of D/C: 08/24/18
--- NOTE | 2018-08-22 13:27 | PN ---
DATE: 08/22/2018 SUBJECTIVE: She is still sleeping in bed. She is more awake today than yesterday. She looked at me, saw me and smiled. She is probably starting to feel a little bit better. She has no complaints at this time. She is here for depression and suicidal thoughts and auditory hallucinations on top of her diabetes, high cholesterol, and hypertension. MEDICATIONS: She is on Clozaril, Cogentin, Colace, Desyrel, Ecotrin, Feosol, Glucophage, insulin, Januvia, Lipitor, Norvasc, and Paxil. PHYSICAL EXAMINATION: VITAL SIGNS: She has 98.3 temperature, 88 pulse,114/79 blood pressure, 20 respiratory rate. HEAD: Atraumatic, normocephalic. HEART: Regular rate. LUNGS: Decreased breath sounds, but clear. ABDOMEN: Soft, obese, nontender. EXTREMITIES: No edema. LABORATORY DATA: She has 9.6 white count, better 13,000 yesterday with inflammation and stress, it is down to 9.6 normal;11.3 hemoglobin, 35.3 hematocrit with 403 platelets. Sodium 137, potassium 4.1, BUN 9, creatinine 0.4, GFR is greater than 60, sugar is 157, calcium is 9. Total bilirubin is 0.2, AST is 25, ALT is 18, alkaline phosphatase is 85, total protein 7.2. Her blood sugars are getting better. Urine was negative for . ASSESSMENT AND PLAN: We will continue aggressive treatment and care on this young lady and hopefully, she will improve and these thoughts will go away. We will follow. Gato Garces with suicidal and auditory hallucination. Jason Contreras DO MT[facility]
[2018-08-23] MEDS: Insulin Reg-MEDIUM-Coverage SC SCH ×6 (07:30→22:09)
--- NOTE | 2018-08-23 11:19 | PN ---
DATE: 08/23/2018 SUBJECTIVE: I saw her in the Psychiatric floor. She is resting comfortably in bed. She slept well. She is telling me she is starting to feel a little bit better mentally. MEDICATIONS: She is on Clozaril, Cogentin, Colace, Desyrel, Ecotrin, Feosol, Glucophage, insulin, Januvia, Lipitor, Norvasc and Paxil. PHYSICAL EXAMINATION: VITAL SIGNS: She has 98.1 temperature, 84 pulse, 122/85 blood pressure and 20 respiratory rate. HEENT: Head is atraumatic and normocephalic. HEART: Regular rate. LUNGS: Clear to auscultation. ABDOMEN: Soft. EXTREMITIES: No edema. LABORATORY DATA: She has a 9.6 white count, 11.3 hemoglobin and 402 platelets. Sodium 137, potassium 4.1, BUN 9, creatinine 0.4, GFR is greater than 60, last blood sugar was 197, calcium is 9, total bilirubin is 0.2, AST is 25, ALT is 18 and alkaline phosphatase is 85. Urine was fairly clean, negative . Negative toxicology. She will continue with aggressive psychiatric care to get up and go to groups, eat food, walk around the floor. She had depression, suicidal ideation, diabetes, high cholesterol, hypertension. She had auditory hallucinations. She will continue to improve. We will follow. Jason Contreras DO MTDD
--- NOTE | 2018-08-23 15:17 | PCM.PYCHPN ---
Psychiatric Progress Note - Psychiatric Progress Note Patient seen today, length of contact: 30 minutes Patient Chief Complaint: "My mood is always good" Problems Identified/Issues Discussed: Medications, symptoms, treatment plan. Medical Problems: Diabetes, obesity, hypertension. Medical consult was called for urinary tract infection, patient got dose of antibiotic in the emergency room. Diagnostic Results: 08/19/18 17:50 08/19/18 17:50 Lab Results 08/21/18 07:20: POC Glucose (mg/dL) 191 H 08/20/18 21:05: POC Glucose (mg/dL) 224 H 08/20/18 16:10: POC Glucose (mg/dL) 307 H 08/20/18 11:40: POC Glucose (mg/dL) 255 H 08/19/18 19:00: Urine Opiates Screen Negative, Urine Methadone Screen Negative, Ur Barbiturates Screen Negative, Ur Phencyclidine Scrn Negative, Ur Amphetamines Screen Negative, U Benzodiazepines Scrn Negative, U Oth Cocaine Metabols Negative, U Cannabinoids Screen Negative 08/19/18 19:00: Urine HCG, Qual Negative 08/19/18 19:00: Urine Color Yellow, Urine Appearance Slight-cloudy, Urine pH 6.0, Ur Specific [place] >= 1.030, Urine Protein 30 H, Urine Glucose (UA) 250 H, Urine Ketones 15 H, Urine Blood Negative, Urine Nitrate Negative, Urine Bilirubin Negative, Urine Urobilinogen 0.2, Ur Leukocyte Esterase Negative, Urine RBC TEST NOT PERFORMED, Urine WBC 5 - 10 H, Ur Epithelial Cells 6 - 8 H, Amorphous Sediment Trace 08/19/18 17:50: Alcohol, Quantitative < 10 08/19/18 17:50: Salicylates < 1 L, Acetaminophen < 10.0 L 08/19/18 17:50: Sodium 140, Potassium 4.0, Chloride 101, Carbon Dioxide 24, Anion Gap 18, BUN 10, Creatinine 0.4 L, Est GFR ( Amer) > 60, Est GFR (Non-Af Amer) > 60, Random Glucose 247 H, Calcium 9.6, Magnesium 1.3 L, Total Bilirubin 0.2, AST 35, ALT 12, Alkaline Phosphatase 90, Total Protein 8.2, Albumin 4.5, Globulin 3.7, Albumin/Globulin Ratio 1.2 08/19/18 17:50: WBC 13.9 H D, RBC 4.36, Hgb 12.0, Hct 36.2, MCV 83.0, MCH 27.5, MCHC 33.1, RDW 17.2 H, Plt Count 451 H, MPV 8.9, Neut % (Auto) 47.7 L, Lymph % (Auto) 44.0 H, [place] % (Auto) 6.5 H, Eos % (Auto) 1.4 L, Baso % (Auto) 0.4, Lymph # (Auto) 6.1 H, [place] # (Auto) 0.9 H, Eos # (Auto) 0.2, Baso # (Auto) 0.05, Absolute Neuts (auto) 6.65 H Vital Signs Temp Pulse Pulse Resp BP Pulse Ox 08/21/18 09:19 108/74 08/21/18 07:00 98.2 F 101 H 19 108/74 08/20/18 16:00 114 H 110/79 08/20/18 12:50 99 H 17 08/20/18 11:32 98.7 F 95 H 18 129/86 99 08/20/18 07:00 87 20 103/70 97 08/19/18 23:17 82 20 108/71 95 08/19/18 17:30 98.7 F 100 H 18 121/87 100 DSM 5 Symptoms Update: Shortly patient is a 42-year old -[place] female with a 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 pt was seen and examined in her room, pt appears to be sleepy, withdrawn, disengaged, superficially cooperative, as per staff pt is very low-profile, not participating in unit activities, sleeping all day long. Patient started to draw imaginary "", as per pt it is her lover/, pt drawing the same pictures with multiple lover statements such as "May you live Always Live, Live Live..." pt reported "MY MOOD IS ALWAYS GOOD", seems does not remember that she had a plan to cut her wrists prior to come to the hosptial. pt also reported that she does not hear voices, but pt reported to this curriculum writer that she was hearing voices. pt was visited by PACT team already. plan is 72 hr observation and possible d/c by Monday. Impression: Schizoaffective disorder, bipolar type Medication Change: No (Resumed) Medical Record Reviewed: No Consults ordered or reviewed: Medical consult appreciated. Mental Status Examination - Cognitive Function Orientation: Person, Place Memory: Impaired Attention: Poor Concentration: Poor Association: Loose Fund of Knowledge: Poor - Mood Mood: Depressed, Anxious - Affect Affect: Constricted, Flat - Formal Thought Process Formal Thought Process: Hallucinations, Delusions, Paranoia - Suicidal Ideation Suicidal Ideation: No - Homicidal Ideation Homicidal Ideation: No Goal/Treatment Plan - Goal/Treatment Plan Need for Continued Stay: Remain at risks for inpatient hospitalization, Severe depression anxiety, Discharge may exacerbated symptoms, Severe functional impairment Progress Toward Problem(s) and Goals/Treatment Plan: Milieu/structure/supportive therapy SW consultation for discharge plan and social issues Med management, medications were confirmed by PACT team, resumed paxil 20mg daily for depression anxiety clozaril 200mg hs and 200dbid for psychosis trazodone 50mg hs for insomnia and depression cogentin 1mg bid possible EPS norvasc 10mg daily ASA 81 daily lipitor 20mg daily januvia 50mg po daily metformin 1000mg bid januvia 50mg daily Family involvement Follow up on labs Will monitor closely Pt was educated about risk/benefits and alternatives of medications, coping strategies (safety plan, suicide prevention), relapse prevention, importance of follow up with psychiatrist and therapist, stay away from drugs/alcohol/smoking Estimated Date of D/C: 08/24/18
[2018-08-24] MEDS: Insulin Reg-MEDIUM-Coverage SC SCH ×4 (10:05→21:18)
--- NOTE | 2018-08-24 11:33 | PN ---
DATE: 08/24/2018 SUBJECTIVE: I saw her resting comfortably in bed this morning. She tells me she slept well. She tells me she is feeling better. No more those thoughts, not hearing anything. MEDICATIONS: She is on Clozaril, Cogentin, Colace, Desyrel, Ecotrin, Feosol, Glucophage, insulin, Januvia, Lipitor, Norvasc, and Paxil. PHYSICAL EXAMINATION: VITAL SIGNS: She has 97 temperature, 66 pulse, 98/64 blood pressure, 20 respiratory rate. HEENT: Head is atraumatic, normocephalic. HEART: Regular rate. LUNGS: Decreased breath sounds, but clear. ABDOMEN: Soft, nontender. LABORATORY DATA: Last lab was on 08/22/2018. The labs were good, the CBC was good, chemistry was good. Last blood sugar was 139. ASSESSMENT AND PLAN: Hopefully, she will continue to improve psychologically, she tells me she is. I encouraged her to participate, take the medications with food, and call me if anything changed. Jason Contreras DO
--- NOTE | 2018-08-24 15:37 | PCM.PYCHPN ---
Psychiatric Progress Note - Psychiatric Progress Note Patient seen today, length of contact: 30 minutes Patient Chief Complaint: "I feel very good" Problems Identified/Issues Discussed: Medications, symptoms, treatment plan. Medical Problems: Diabetes, obesity, hypertension. Medical consult was called for urinary tract infection, patient got dose of antibiotic in the emergency room. Diagnostic Results: 08/19/18 17:50 08/19/18 17:50 Lab Results 08/21/18 07:20: POC Glucose (mg/dL) 191 H 08/20/18 21:05: POC Glucose (mg/dL) 224 H 08/20/18 16:10: POC Glucose (mg/dL) 307 H 08/20/18 11:40: POC Glucose (mg/dL) 255 H 08/19/18 19:00: Urine Opiates Screen Negative, Urine Methadone Screen Negative, Ur Barbiturates Screen Negative, Ur Phencyclidine Scrn Negative, Ur Amphetamines Screen Negative, U Benzodiazepines Scrn Negative, U Oth Cocaine Metabols Negative, U Cannabinoids Screen Negative 08/19/18 19:00: Urine HCG, Qual Negative 08/19/18 19:00: Urine Color Yellow, Urine Appearance Slight-cloudy, Urine pH 6.0, Ur Specific [place] >= 1.030, Urine Protein 30 H, Urine Glucose (UA) 250 H, Urine Ketones 15 H, Urine Blood Negative, Urine Nitrate Negative, Urine Bilirubin Negative, Urine Urobilinogen 0.2, Ur Leukocyte Esterase Negative, Urine RBC TEST NOT PERFORMED, Urine WBC 5 - 10 H, Ur Epithelial Cells 6 - 8 H, Amorphous Sediment Trace 08/19/18 17:50: Alcohol, Quantitative < 10 08/19/18 17:50: Salicylates < 1 L, Acetaminophen < 10.0 L 08/19/18 17:50: Sodium 140, Potassium 4.0, Chloride 101, Carbon Dioxide 24, Anion Gap 18, BUN 10, Creatinine 0.4 L, Est GFR ( Amer) > 60, Est GFR (Non-Af Amer) > 60, Random Glucose 247 H, Calcium 9.6, Magnesium 1.3 L, Total Bilirubin 0.2, AST 35, ALT 12, Alkaline Phosphatase 90, Total Protein 8.2, Albumin 4.5, Globulin 3.7, Albumin/Globulin Ratio 1.2 08/19/18 17:50: WBC 13.9 H D, RBC 4.36, Hgb 12.0, Hct 36.2, MCV 83.0, MCH 27.5, MCHC 33.1, RDW 17.2 H, Plt Count 451 H, MPV 8.9, Neut % (Auto) 47.7 L, Lymph % (Auto) 44.0 H, [place] % (Auto) 6.5 H, Eos % (Auto) 1.4 L, Baso % (Auto) 0.4, Lymph # (Auto) 6.1 H, [place] # (Auto) 0.9 H, Eos # (Auto) 0.2, Baso # (Auto) 0.05, Absolute Neuts (auto) 6.65 H Vital Signs Temp Pulse Pulse Resp BP Pulse Ox 08/21/18 09:19 108/74 08/21/18 07:00 98.2 F 101 H 19 108/74 08/20/18 16:00 114 H 110/79 08/20/18 12:50 99 H 17 08/20/18 11:32 98.7 F 95 H 18 129/86 99 08/20/18 07:00 87 20 103/70 97 08/19/18 23:17 82 20 108/71 95 08/19/18 17:30 98.7 F 100 H 18 121/87 100 DSM 5 Symptoms Update: Shortly patient is a 42-year old -[place] female with a 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 pt was seen and examined at the treatment team meeting room, pt appears to be in good mood, cheerful, said that nothing is bothering her. pt keep drawing imaginary "", as per pt it is her lover/, pt drawing the same pictures with multiple loving statements such as "May you live Always Live, Live Live..." pt was visited by PACT team already. plan is to d/c pt on Monday after the blood work because if pt would be d/c today, pt most likely will be readmitted over the weekend, on Monday pt will have f/u with her PACT team. Impression: Schizoaffective disorder, bipolar type Medication Change: No (Resumed) Medical Record Reviewed: No Mental Status Examination - Cognitive Function Orientation: Person, Place Memory: Impaired Attention: Poor Concentration: Poor Association: Loose Fund of Knowledge: Poor - Mood Mood: Depressed, Anxious - Affect Affect: Constricted, Flat - Formal Thought Process Formal Thought Process: Hallucinations, Delusions, Paranoia - Suicidal Ideation Suicidal Ideation: No - Homicidal Ideation Homicidal Ideation: No Goal/Treatment Plan - Goal/Treatment Plan Need for Continued Stay: Remain at risks for inpatient hospitalization, Severe depression anxiety, Discharge may exacerbated symptoms, Severe functional impairment Progress Toward Problem(s) and Goals/Treatment Plan: Milieu/structure/supportive therapy SW consultation for discharge plan and social issues Med management, medications were confirmed by PACT team, resumed paxil 20mg daily for depression anxiety clozaril 200mg hs and 200dbid for psychosis trazodone 50mg hs for insomnia and depression cogentin 1mg bid possible EPS norvasc 10mg daily ASA 81 daily lipitor 20mg daily januvia 50mg po daily metformin 1000mg bid januvia 50mg daily Family involvement Follow up on labs Will monitor closely Pt was educated about risk/benefits and alternatives of medications, coping strategies (safety plan, suicide prevention), relapse prevention, importance of follow up with psychiatrist and therapist, stay away from drugs/alcohol/smoking CBC with differential on Monday Estimated Date of D/C: 08/27/18
--- NOTE | 2018-08-25 08:45 | PCM.PYCHPN ---
Psychiatric Progress Note - Psychiatric Progress Note Patient seen today, length of contact: 30 minutes Problems Identified/Issues Discussed: I reviewed assessment and recent notes. I met with patient at bedside. I am very familiar with patient from her numerous psychiatric admissions to this unit. She remains superficial and denies any new concerns. Patient indicates that she is feeling better. She denies recurrence of hallucinations or suicidal thoughts ("to cut my wrists") which patient endorsed in the ER [employer]). States "I am just fine, doc". Patient doesn't appear to be overtly bizarre or actively responding to internal stimuli though she is internally preoccupied. Has been eating and sleeping well. Nursing notes also indicates that patient has been in good control and generally pleasant on the unit. Appearance is kempt. Delusions were not elicited by this provider though patient reportedly has a chronic delusion that she is in a relationship with a male named Mr. Paige. As usual there have been no behavioral issues. She seems more low padilla and quieter during this admission. Diagnostic Results: Schizoaffective disorder, bipolar type Medication Change: No ( ) Medical Record Reviewed: Yes Mental Status Examination - Cognitive Function Orientation: Person, Place, Situation Memory: Impaired Attention: WNL Concentration: Poor Association: Loose Fund of Knowledge: Poor - Mood Mood: Depressed, Anxious - Affect Affect: Constricted, Flat - Formal Thought Process Formal Thought Process: Hallucinations (denied), Delusions (chronic), Paranoia (improving) - Suicidal Ideation Suicidal Ideation: No - Homicidal Ideation Homicidal Ideation: No Goal/Treatment Plan - Goal/Treatment Plan Need for Continued Stay: Remain at risks for inpatient hospitalization, Severe depression anxiety, Discharge may exacerbated symptoms, Severe functional impairment Progress Toward Problem(s) and Goals/Treatment Plan: * c/w current tx and plan * No new weekend lab results thus far * Vitals reviewed and noted below: Selected Entries 08/24/18 08/24/18 07:07 16:11 Temperature 97.0 F L Pulse Rate 66 95 H Respiratory 20 Rate Blood Pressure 98/64 L 110/73 Estimated Date of D/C: 08/27/18
[2018-08-25] MEDS: Insulin Reg-MEDIUM-Coverage SC SCH ×4 (09:46→21:16)
--- NOTE | 2018-08-25 15:36 | PN ---
DATE: 08/25/2018 SUBJECTIVE: I saw her resting comfortably in bed. She is sleeping again. She tells me she will get out of bed and walk and she will eat her breakfast. She has a fairly good spirits. No complaints. No chest pain or shortness of breath. No abdominal pain. She is going to the bathroom well. She is improving mentally. She is Clozaril, Cogentin, Colace, Desyrel Ecotrin, Feosol, Glucophage, insulin, Januvia, Lipitor, Norvasc and Paxil. PHYSICAL EXAMINATION: VITAL SIGNS: She has a 97.9 temperature, 85 pulse, 115/76 blood pressure and 20 respiratory rate. HEENT: Head is atraumatic and normocephalic. HEART: Regular rate. LUNGS: Decreased breath sounds, but clear. ABDOMEN: Soft, obese and nontender. EXTREMITIES: No edema. LABORATORY DATA: She has a 9.6 white count, 11.3 hemoglobin and 403 platelets. Last blood sugar was 154. Not . As per Psychiatry, he will continue to follow. I think she is starting to improve mentally. Hopefully, she will continue. I encourage her to participate in groups, taking medications, go for walks on the unit and eat her food. Jason Contreras DO
--- NOTE | 2018-08-26 08:47 | PCM.PYCHPN ---
Psychiatric Progress Note - Psychiatric Progress Note Patient seen today, length of contact: 30 minutes Problems Identified/Issues Discussed: I reviewed recent notes and met with patient at bedside again. I am very familiar with patient from her numerous psychiatric admissions to this unit. She remains superficially friendly and denies any new concerns. Patient indicates that she is feeling better. She denies recurrence of hallucinations or suicidal thoughts ("to cut my wrists" which patient endorsed in the ER DIRECTOR EXPORT). States "I am just fine, doc". Patient doesn't appear to be overtly bizarre or actively responding to internal stimuli though she is internally preoccupied. Has been eating and sleeping well. Nursing notes also indicates that patient has been in good control and generally pleasantly passive on the unit. Appearance is kempt. Delusions were not elicited by this provider though patient reportedly has a chronic delusion that she is in a relationship with a male named Mr. Paige. As usual there have been no behavioral issues. She seems more low padilla and quieter during this admission. Nonetheless patient appears at baseline and is stable for discharge planned for tomorrow. Diagnostic Results: Schizoaffective disorder, bipolar type Medication Change: No ( ) Medical Record Reviewed: Yes Mental Status Examination - Cognitive Function Orientation: Person, Place, Situation Memory: Impaired Attention: WNL Concentration: Poor Association: Loose Fund of Knowledge: Poor - Mood Mood: Depressed (better), Anxious - Affect Affect: Constricted (some reactivity, smiles), Flat - Speech Speech: Appropriate - Formal Thought Process Formal Thought Process: Hallucinations (denied all weekend), Delusions (chronic), Paranoia (improving) - Suicidal Ideation Suicidal Ideation: No - Homicidal Ideation Homicidal Ideation: No Goal/Treatment Plan - Goal/Treatment Plan Need for Continued Stay: Remain at risks for inpatient hospitalization, Severe depression anxiety, Discharge may exacerbated symptoms, Severe functional impairment Progress Toward Problem(s) and Goals/Treatment Plan: * c/w current tx and plan * Appreciate f/u by Dr. Contreras on 08/26/18~no new recs * No new weekend lab results * Vitals reviewed and noted below: Selected Entries 08/25/18 08/25/18 07:05 16:00 Temperature 97.9 F Pulse Rate 85 99 H Respiratory 20 Rate Blood Pressure 115/76 119/81 Estimated Date of D/C: 08/27/18
[2018-08-26] MEDS: Insulin Reg-MEDIUM-Coverage SC SCH ×4 (09:21→23:02)
--- NOTE | 2018-08-26 15:00 | PN ---
DATE: 08/26/2018 SUBJECTIVE: I saw her sleeping in bed this morning. She is alert. She tells me she is getting up and going to breakfast. She is participating. She is feeling well. She tells me she is being discharged on Monday. She is Clozaril, Cogentin, Colace, Desyrel, Ecotrin, Feosol, Glucophage, insulin, Januvia, Lipitor, Norvasc, and Paxil. She tells me the voices are not there. She does not have anymore suicidal ideation. PHYSICAL EXAMINATION: VITAL SIGNS: She has a 98.1 temperature, 68 pulse, 115/82 blood pressure, and 18 respiratory rate. HEENT: Head is atraumatic and normocephalic. HEART: Regular rate. LUNGS: Decreased breath sounds, but clear. ABDOMEN: Soft, obese and nontender. EXTREMITIES: No edema. ASSESSMENT AND PLAN: She is on good spirits today. I do think she has improved over the time she has been in the psychiatric unit. I think the medicines are helping her. I am hoping that she continues to improve. I encouraged her to take the medication, participate in groups, eat the food, which is good. Blood pressure is good at 115/82 and she will continue with psychiatric care. Jason Contreras DO
[2018-08-27 08:34] LABS: BASO # 0.07 K/mm3 (0.0-2.0); BASO % 0.6 % (0.0-3.0); EOS # 0.2 (0.0-0.7); HEMOGLOBIN 11.6 g/dL (12.0-16.0); LYMPH # 4.5 (1.2-3.4); LYMPH % 37.6 % (22.0-35.0); MEAN CELL VOLUME 82.5 fl (80.0-105.0); MEAN CORPUSCULAR HGB CONC 32.8 g/dl (31.0-37.0); MEAN PLATELET VOLUME 8.3 fl (7.0-11.0); MONO # 0.8 (0.1-0.6); MONO % 6.5 % (1.0-6.0); RBC 4.29 10^6/uL (3.5-6.1); RED CELL DISTRIBUTION WIDTH 17.4 % (11.5-14.5); WHITE BLOOD COUNT 11.9 10^3/uL (4.5-11.0)
[2018-08-27] MEDS: Insulin Reg-MEDIUM-Coverage SC SCH ×4 (09:11→21:21)
--- NOTE | 2018-08-27 13:26 | PCM.PYCHPN ---
Psychiatric Progress Note - Psychiatric Progress Note Patient seen today, length of contact: 30 minutes Patient Chief Complaint: "I feel very good" Problems Identified/Issues Discussed: Medications, symptoms, treatment plan, discharge plan, compliance with meds, coping strategies, suicide/homicide prevention. Medical Problems: Diabetes, obesity, hypertension. Medical consult was called for urinary tract infection, patient got dose of ant ibiotic in the emergency room. Diagnostic Results: 08/19/18 17:50 08/19/18 17:50 Lab Results 08/21/18 07:20: POC Glucose (mg/dL) 191 H 08/20/18 21:05: POC Glucose (mg/dL) 224 H 08/20/18 16:10: POC Glucose (mg/dL) 307 H 08/20/18 11:40: POC Glucose (mg/dL) 255 H 08/19/18 19:00: Urine Opiates Screen Negative, Urine Methadone Screen Negative, Ur Barbiturates Screen Negative, Ur Phencyclidine Scrn Negative, Ur Amphetamines Screen Negative, U Benzodiazepines Scrn Negative, U Oth Cocaine Metabols Negative, U Cannabinoids Screen Negative 08/19/18 19:00: Urine HCG, Qual Negative 08/19/18 19:00: Urine Color Yellow, Urine Appearance Slight-cloudy, Urine pH 6.0, Ur Specific [place] >= 1.030, Urine Protein 30 H, Urine Glucose (UA) 250 H, Urine Ketones 15 H, Urine Blood Negative, Urine Nitrate Negative, Urine Bilirubin Negative, Urine Urobilinogen 0.2, Ur Leukocyte Esterase Negative, Urine RBC TEST NOT PERFORMED, Urine WBC 5 - 10 H, Ur Epithelial Cells 6 - 8 H, Amorphous Sediment Trace 08/19/18 17:50: Alcohol, Quantitative < 10 08/19/18 17:50: Salicylates < 1 L, Acetaminophen < 10.0 L 08/19/18 17:50: Sodium 140, Potassium 4.0, Chloride 101, Carbon Dioxide 24, Anion Gap 18, BUN 10, Creatinine 0.4 L, Est GFR ( Amer) > 60, Est GFR (Non-Af Amer) > 60, Random Glucose 247 H, Calcium 9.6, Magnesium 1.3 L, Total Bilirubin 0.2, AST 35, ALT 12, Alkaline Phosphatase 90, Total Protein 8.2, Albumin 4.5, Globulin 3.7, Albumin/Globulin Ratio 1.2 08/19/18 17:50: WBC 13.9 H D, RBC 4.36, Hgb 12.0, Hct 36.2, MCV 83.0, MCH 27.5, MCHC 33.1, RDW 17.2 H, Plt Count 451 H, MPV 8.9, Neut % (Auto) 47.7 L, Lymph % (Auto) 44.0 H, [place] % (Auto) 6.5 H, Eos % (Auto) 1.4 L, Baso % (Auto) 0.4, Lymph # (Auto) 6.1 H, [place] # (Auto) 0.9 H, Eos # (Auto) 0.2, Baso # (Auto) 0.05, Absolute Neuts (auto) 6.65 H Vital Signs Temp Pulse Pulse Resp BP Pulse Ox 08/21/18 09:19 108/74 08/21/18 07:00 98.2 F 101 H 19 108/74 08/20/18 16:00 114 H 110/79 08/20/18 12:50 99 H 17 08/20/18 11:32 98.7 F 95 H 18 129/86 99 08/20/18 07:00 87 20 103/70 97 08/19/18 23:17 82 20 108/71 95 08/19/18 17:30 98.7 F 100 H 18 121/87 100 08/27/18 08:00 08/22/18 07:35 Lab Results 08/27/18 08:00: WBC 11.9 H D, RBC 4.29, Hgb 11.6 L, Hct 35.4 L, MCV 82.5, MCH 27.0, MCHC 32.8, RDW 17.4 H, Plt Count 418, MPV 8.3, Neut % (Auto) 53.3, Lymph % (Auto) 37.6 H, [place] % (Auto) 6.5 H, Eos % (Auto) 2.0, Baso % (Auto) 0.6, Lymph # (Auto) 4.5 H, [place] # (Auto) 0.8 H, Eos # (Auto) 0.2, Baso # (Auto) 0.07, Absolute Neuts (auto) 6.35 08/27/18 07:37: POC Glucose (mg/dL) 157 H 08/26/18 21:06: POC Glucose (mg/dL) 183 H 08/26/18 16:02: POC Glucose (mg/dL) 131 H 08/26/18 11:19: POC Glucose (mg/dL) 181 H 08/26/18 07:20: POC Glucose (mg/dL) 166 H 08/25/18 21:09: POC Glucose (mg/dL) 197 H 08/25/18 16:03: POC Glucose (mg/dL) 111 H 08/25/18 11:49: POC Glucose (mg/dL) 154 H 08/25/18 07:33: POC Glucose (mg/dL) 153 H 08/24/18 21:00: POC Glucose (mg/dL) 176 H 08/24/18 16:26: POC Glucose (mg/dL) 152 H 08/24/18 11:09: POC Glucose (mg/dL) 173 H 08/24/18 07:35: POC Glucose (mg/dL) 139 H 08/23/18 21:16: POC Glucose (mg/dL) 184 H 08/23/18 16:05: POC Glucose (mg/dL) 145 H 08/23/18 11:22: POC Glucose (mg/dL) 204 H 08/23/18 07:23: POC Glucose (mg/dL) 166 H 08/22/18 21:00: POC Glucose (mg/dL) 197 H 08/22/18 16:21: POC Glucose (mg/dL) 137 H 08/22/18 11:32: POC Glucose (mg/dL) 140 H 08/22/18 07:35: Sodium 137, Potassium 4.1, Chloride 102, Carbon Dioxide 25, Anion Gap 14, BUN 9, Creatinine 0.4 L, Est GFR ( Amer) > 60, Est GFR (Non-Af Amer) > 60, Random Glucose 157 H, Calcium 9.0, Total Bilirubin 0.2, AST 25, ALT 18, Alkaline Phosphatase 85, Total Protein 7.2, Albumin 4.1, Globulin 3.2, Albumin/Globulin Ratio 1.3 08/22/18 07:35: WBC 9.6 D, RBC 4.23, Hgb 11.3 L, Hct 35.3 L, MCV 83.5, MCH 26.7, MCHC 32.0, RDW 17.3 H, Plt Count 403, MPV 8.4 08/22/18 07:23: POC Glucose (mg/dL) 183 H 08/21/18 20:41: POC Glucose (mg/dL) 200 H 08/21/18 16:14: POC Glucose (mg/dL) 137 H 08/21/18 10:58: POC Glucose (mg/dL) 192 H 08/21/18 07:20: POC Glucose (mg/dL) 191 H 08/20/18 21:05: POC Glucose (mg/dL) 224 H 08/20/18 16:10: POC Glucose (mg/dL) 307 H 08/20/18 11:40: POC Glucose (mg/dL) 255 H 08/19/18 19:00: Urine Opiates Screen Negative, Urine Methadone Screen Negative, Ur Barbiturates Screen Negative, Ur Phencyclidine Scrn Negative, Ur Amphetamines Screen Negative, U Benzodiazepines Scrn Negative, U Oth Cocaine Metabols Negative, U Cannabinoids Screen Negative 08/19/18 19:00: Urine HCG, Qual Negative 08/19/18 19:00: Urine Color Yellow, Urine Appearance Slight-cloudy, Urine pH 6.0, Ur Specific [place] >= 1.030, Urine Protein 30 H, Urine Glucose (UA) 250 H, Urine Ketones 15 H, Urine Blood Negative, Urine Nitrate Negative, Urine Bilirubin Negative, Urine Urobilinogen 0.2, Ur Leukocyte Esterase Negative, Urine RBC TEST NOT PERFORMED, Urine WBC 5 - 10 H, Ur Epithelial Cells 6 - 8 H, Amorphous Sediment Trace 08/19/18 17:50: Alcohol, Quantitative < 10 08/19/18 17:50: Salicylates < 1 L, Acetaminophen < 10.0 L 08/19/18 17:50: Sodium 140, Potassium 4.0, Chloride 101, Carbon Dioxide 24, Anion Gap 18, BUN 10, Creatinine 0.4 L, Est GFR ( Amer) > 60, Est GFR (Non-Af Amer) > 60, Random Glucose 247 H, Calcium 9.6, Magnesium 1.3 L, Total Bilirubin 0.2, AST 35, ALT 12, Alkaline Phosphatase 90, Total Protein 8.2, Albumin 4.5, Globulin 3.7, Albumin/Globulin Ratio 1.2 08/19/18 17:50: WBC 13.9 H D, RBC 4.36, Hgb 12.0, Hct 36.2, MCV 83.0, MCH 27.5, MCHC 33.1, RDW 17.2 H, Plt Count 451 H, MPV 8.9, Neut % (Auto) 47.7 L, Lymph % (Auto) 44.0 H, [place] % (Auto) 6.5 H, Eos % (Auto) 1.4 L, Baso % (Auto) 0.4, Lymph # (Auto) 6.1 H, [place] # (Auto) 0.9 H, Eos # (Auto) 0.2, Baso # (Auto) 0.05, Absolute Neuts (auto) 6.65 H DSM 5 Symptoms Update: Shortly patient is a 42-year old -[place] female with a 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 pt was seen and examined in her room, pt presented to be sleepy, but easily arousal, pt reported "I feel okay Doctor, I am just fine", spoke to PACT team but it will be not possible for them to accept pt back today, d/c was postponed to tomorrow Monday08/28/18. pt has erotomanic delusions with imaginary "", but not overly obsessed over that. so far pt tolerated medications well, no side effects observed or reported, AIMS 0, no EPS. [facility] Impression: Schizoaffective disorder, bipolar type Medication Change: No ( ) Medical Record Reviewed: Yes Consults ordered or reviewed: Medical consult appreciated. Mental Status Examination - Cognitive Function Orientation: Person, Place, Situation Memory: Impaired Attention: WNL Concentration: Poor (but with some improvement) Association: Loose (baseline) Fund of Knowledge: Poor (baseline) - Mood Mood: Depressed (better), Anxious ("I am fine..") - Affect Affect: Constricted (some reactivity, smiles), Flat - Speech Speech: Appropriate - Formal Thought Process Formal Thought Process: Hallucinations (denied all weekend), Delusions (chronic), Paranoia (improving) - Suicidal Ideation Suicidal Ideation: No - Homicidal Ideation Homicidal Ideation: No Goal/Treatment Plan - Goal/Treatment Plan Need for Continued Stay: Remain at risks for inpatient hospitalization, Severe depression anxiety, Discharge may exacerbated symptoms, Severe functional impairment Progress Toward Problem(s) and Goals/Treatment Plan: Milieu/structure/supportive therapy SW consultation for discharge plan and social issues Med management, medications were confirmed by PACT team, resumed paxil 20mg daily for depression anxiety clozaril 200mg hs and 200dbid for psychosis trazodone 50mg hs for insomnia and depression cogentin 1mg bid possible EPS norvasc 10mg daily ASA 81 daily lipitor 20mg daily januvia 50mg po daily metformin 1000mg bid januvia 50mg daily Family involvement Follow up on labs Will monitor closely Pt was educated about risk/benefits and alternatives of medications, coping strategies (safety plan, suicide prevention), relapse prevention, importance of follow up with psychiatrist and therapist, stay away from drugs/alcohol/smoking CBC with differential 08/27/18, no signs of agranulocytosis Estimated Date of D/C: 08/28/18
--- NOTE | 2018-08-27 14:21 | PN ---
DATE: 08/27/2018 SUBJECTIVE: I saw her in the psychiatric floor. She is doing quite well. She slept well. , she is taking her medication. She tells me she is being discharged today. She is on Clozaril, Cogentin, Colace, Desyrel, Ecotrin, Feosol, Glucophage, insulin Januvia, Lipitor, Norvasc, and Paxil. PHYSICAL EXAMINATION: VITAL SIGNS: She has a 98 temperature, 88 pulse, 124/88 blood pressure, 18 respiratory rate. HEENT: Head is atraumatic, normocephalic. HEART: Regular rate. LUNGS: Clear to auscultation. ABDOMEN: Soft. EXTREMITIES: No edema. LABORATORY DATA: She has a 11.9 white count, 11.6 hemoglobin, 35.4 hematocrit with 418 platelets. Last blood sugar was 183. ASSESSMENT AND PLAN: Overall, she is improved. She will be followed up on the outpatient to continue with the medication. She had multiple issues. She also had depression, suicidal ideation, diabetes, high cholesterol, hypertension, and auditory hallucinations, and hopefully she continues to do well. Jason Cnotreras DO MTDD
[2018-08-28 07:13] VITALS: BP 118/83; PULSE 82; RESP 20; TEMP 98
[2018-08-28] MEDS: Insulin Reg-MEDIUM-Coverage SC SCH (08:39)
--- NOTE | 2018-08-28 11:38 | PN ---
DATE: 08/28/2018 SUBJECTIVE: She is telling me again today that she is being discharged, said it yesterday. She is on Clozaril, Cogentin, Colace, Desyrel, Ecotrin, Feosol, Glucophage, insulin, Januvia, Lipitor, Norvasc and Paxil. PHYSICAL EXAMINATION: VITAL SIGNS: She has a 98 temperature, 82 pulse, 118/83 blood pressure, 20 respiratory rate. HEAD: Atraumatic, normocephalic. HEART: Regular rate. LUNGS: Decreased breath sounds, but clear. ABDOMEN: Soft, obese. EXTREMITIES: No edema. ASSESSMENT AND PLAN: She is comfortable, resting in bed. She sleeps a lot. She did go out and eat breakfast. She did have her medications. She tells me she is ready to go home. Hopefully, she will do well and follow up in the outpatient and take her psychiatric medications. She understands all that. Hopefully, she will do well and hopefully, she will not be back. Jason Contreras DO
--- NOTE | 2018-08-28 14:32 | PCM.PYCHDC ---
Mental Status Examination - Mental Status Examination Orientation: Person, Place, Situation, Time Memory: Impaired (but much improved) Mood: Neutral Affect: Broad Speech: Appropriate (but underproductive) Attention: Poor (baseline but improved) Concentration: Poor (baseline but improved) Association: Loose (baseline but improved) Fund of Knowledge: Poor (baseline) Formal Thought Process: Delusions (chronic erotomanic delusions), Other (chronic disorganized thougths) Description of patient's judgement and insight: insight and judgment seems to be fair impulses are well controlled Psychotic Thoughts and Behaviors: pt has chronic erotomanic delusions, pt is in love with imaginary "" Suicidal Ideation: No Current Homicidal Ideation?: No Plan: Patient adamantly denied thoughts of harming herself or others Discharge Summary - Discharge Note Reason for Hospitalization: Patient was admitted for evaluation and stabilization of psychosis, possible suicidal ideation with a plan to cut her wrists. Psychiatric History (includes Medical, Family, Personal Hx): See HPI Laboratory Data: Abnormal Lab Results 08/27/18 08/27/18 08/27/18 11:19 16:14 21:15 POC Glucose (mg/dL) 159 H 173 H 139 H 08/28/18 08/28/18 07:14 11:42 POC Glucose (mg/dL) 137 H 156 H Consultations:: List each consultation separately and include: 1. Reason for request. 2. Findings. 3. Follow-up Consultations: Medical consult appreciated. see notes for more detailed information. Summary of Hospital Course include:: 1. Description of specific treatment plan utilized for patients during their course of treatmen. 2. Summarize the time- course for resolution of acute symptoms and/or regressed behaviors. 3. Describe issues identified and worked on during hospitalization. 4. Describe medication utilized. 5. Describe medical problems identified and treated. 6. Reassessment of suicide risk Summary of Hospital Course: Shortly patient is a 42-year old -[place] female with a long and debili tating history of treatment resistant schizophrenia, multiple admissions to the psychiatric inpatient unit including [facility], most recently ia from [facility] about 07/19/18 patient under care of PACT team, patient came to the hospital looking for help for depressive symptoms, possible suicidal ideation with a plan to cut her wrists, psychosis, patient was not able to contract for safety in the emergency room, required further evaluation and stabilization and observation. This short story writer is very familiar with this patient from the multiple admissions to the psychiatric inpatient unit in the past, patient presented with acceptable personal hygiene, patient had good ADLs. pt reported that she was feeling very depressed for the past 2 days, patient reported that she had suicidal ideation with a plan to cut her wrists, patient reported that she is compliant with her medications, patient reported that she was stressed about her current medications were recently adjusted. [facility] paxil 20mg daily norvasc 10mg daily ASA 81 daily lipitor 20mg daily cogentin 1mg bid clozaril 200mg hs and 200dbid januvia 50mg po daily metformin 1000mg bid januvia 50mg daily trazodone 50mg hs Medications were resumed, patient tolerated medications well, no side effects observed or reported, [place] 0, no EPS. Patient is on Clozaril, no signs of granulocytosis, [facility] For the past week patient presented well, was compliant with her medications and unit rules and regulations, no agitation, no aggression. PACT team visited pt in the unit, pt was found to be at her baseline of functioning. Over the course of this hospitalization pt was attending groups, but very minimally, pt had medication management, had therapeutic milieu. Patient reached maximum effect from this acute hospitalization, deemed ready for discharge. Overall pt improved pt was socially appropriate, no behavioral issues. At the time of the discharge patient was considered pose no imminent danger to self or others, pt will be f/u with psychiatrist at PACT team, information about follow up appointment, time and address provided to the pt, (see SW note for more detailed information). It is a patient responsibility to follow up with ou tpatient clinic, PMD as well as specialists In case patient will need to obtain results of studies pending at discharge, patient was provided with contact information of Psychiatric Inpatient unit [phone] as well as Medical Record Department [phone], as well as [facility] team [phone]. Patient denied smoking, denied using drugs, denies alcohol consumption pt was provided with prescriptions (see medication reconciliation form) Pt was educated about safety plan in case of worsening of symptoms or in case of suicidal or homicidal ideation call 911 or go to the nearest ER, also was educated to take meds as prescribed and stay away from drugs, pt verbalized understanding. 08/19/18 17:50 08/19/18 17:50 Lab Results 08/19/18 19:00: Urine Opiates Screen Negative, Urine Methadone Screen Negative, Ur Barbiturates Screen Negative, Ur Phencyclidine Scrn Negative, Ur Amphetamines Screen Negative, U Benzodiazepines Scrn Negative, U Oth Cocaine Metabols Negative, U Cannabinoids Screen Negative 08/19/18 19:00: Urine HCG, Qual Negative 08/19/18 19:00: Urine Color Yellow, Urine Appearance Slight-cloudy, Urine pH 6.0, Ur Specific [place] >= 1.030, Urine Protein 30 H, Urine Glucose (UA) 250 H, Urine Ketones 15 H, Urine Blood Negative, Urine Nitrate Negative, Urine Bilirubin Negative, Urine Urobilinogen 0.2, Ur Leukocyte Esterase Negative, Urin e RBC TEST NOT PERFORMED, Urine WBC 5 - 10 H, Ur Epithelial Cells 6 - 8 H, Amorphous Sediment Trace 08/19/18 17:50: Alcohol, Quantitative < 10 08/19/18 17:50: Salicylates < 1 L, Acetaminophen < 10.0 L 08/19/18 17:50: Sodium 140, Potassium 4.0, Chloride 101, Carbon Dioxide 24, Anion Gap 18, BUN 10, Creatinine 0.4 L, Est GFR ( Amer) > 60, Est GFR (Non-Af Amer) > 60, Random Glucose 247 H, Calcium 9.6, Magnesium 1.3 L, Total Bilirubin 0.2, AST 35, ALT 12, Alkaline Phosphatase 90, Total Protein 8.2, Albumin 4.5, Globulin 3.7, Albumin/Globulin Ratio 1.2 08/19/18 17:50: WBC 13.9 H D, RBC 4.36, Hgb 12.0, Hct 36.2, MCV 83.0, MCH 27.5, MCHC 33.1, RDW 17.2 H, Plt Count 451 H, MPV 8.9, Neut % (Auto) 47.7 L, Lymph % (Auto) 44.0 H, [place] % (Auto) 6.5 H, Eos % (Auto) 1.4 L, Baso % (Auto) 0.4, Lymph # (Auto) 6.1 H, [place] # (Auto) 0.9 H, Eos # (Auto) 0.2, Baso # (Auto) 0.05, Absolute Neuts (auto) 6.65 H Vital Signs Temp Pulse Pulse Resp BP Pulse Ox 08/20/18 16:00 114 H 110/79 08/20/18 12:50 99 H 17 08/20/18 11:32 98.7 F 95 H 18 129/86 99 08/20/18 07:00 87 20 103/70 97 08/19/18 23:17 82 20 108/71 95 08/19/18 17:30 98.7 F 100 H 18 121/87 100 - Diagnosis (1) Schizoaffective disorder Current Visit: Yes Status: Chronic Priority: High - Final Diagnosis (DSM 5) Condition upon Discharge: STABLE Disposition: HOME/ ROUTINE Follow-up Treatment Plan: At the time of the discharge patient was considered pose no imminent danger to self or others, pt will be f/u with psychiatrist at PACT team, information about follow up appointment, time and address provided to the pt, (see SW note for more detailed information). It is a patient responsibility to follow up with outpatient clinic, PMD as well as specialists In case patient will need to obtain results of studies pending at discharge, patient was provided with contact information of Psychiatric Inpatient unit [phone] as well as Medical Record Department [phone], as well as [facility] team [phone]. Patient denied smoking, denied using drugs, denies alcohol consumption pt was provided with prescriptions (see medication reconciliation form) Pt was educated about safety plan in case of worsening of symptoms or in case of suicidal or homicidal ideation call 911 or go to the nearest ER, also was educated to take meds as prescribed and stay away from drugs, pt verbalized understanding. CBC with differential 08/27/18, no signs of agranulocytosis Prescriptions/Medication Reconciliation: amLODIPine [Norvasc] 10 mg PO DAILY #7 tab Aspirin [Ecotrin] 81 mg PO DAILY #7 tabec Atorvastatin [Lipitor] 20 mg PO DIN #7 tab Benztropine [Cogentin] 1 mg PO BID #30 tab cloZAPine [Clozaril] 200 mg PO TID #45 tab Docusate [Colace] 100 mg PO BID #14 cap Ferrous Sulfate [Feosol] 324 mg PO DAILY #7 ect MetFORMIN [glucoPHAGE] 1,000 mg PO BID #14 tab PARoxetine [Paxil] 20 mg PO HS #14 tab SITagliptin [Januvia] 50 mg PO DAILY #7 tab traZODone [Desyrel] 50 mg PO HS #14 tab - Smoking Cessation Smoking Cessation Medication prescribed: No Reason for not providing: Denies smoking - Antipsychotic Medications Pt discharged on 2 or more routine antipsychotic medications: No
== END 2018-08-28 15:25 | disposition home or self-care (01) | DRG 885 ==
LOC: ED 17:17 → ERH 08-20 09:26 → PSYC 08-20 12:01
PROVIDERS: ADMIT Psychiatry & Neurology Psychiatry; ATTEND Psychiatry & Neurology Psychiatry
DX: F25.0 Schizoaffective disorder, bipolar type (principal); N39.0 Urinary tract infection, site not specified; R45.851 Suicidal ideations; F41.9 Anxiety disorder, unspecified; G47.00 Insomnia, unspecified; E11.9 Type 2 diabetes mellitus without complications; I10 Essential (primary) hypertension; E78.5 Hyperlipidemia, unspecified; E78.00 Pure hypercholesterolemia, unspecified; D64.9 Anemia, unspecified; E66.9 Obesity, unspecified; Z68.32 Body mass index [BMI] 32.0-32.9, adult; Z79.84 Long term (current) use of oral hypoglycemic drugs; Z79.82 Long term (current) use of aspirin; Z91.14 Patient's other noncompliance with medication regimen; Z87.891 Personal history of nicotine dependence